=== PATIENT | male | born 1955 ===

== ENCOUNTER → 2020-05-03 09:00 | Outpatient (BNV) | payer MEDICARE, OTHER, SELFPAY | PROVIDERS: Visit Provider Internal Medicine | DX: C17.8 Malignant neoplasm of overlapping sites of small intestine (principal) | CPT/HCPCS: 99212; 99213; 99214; G2211 ==

== ENCOUNTER 2020-07-08 12:50 | Emergency (ER) | payer OTHER, SELFPAY ==
[2020-07-08] VITALS (9 sets, daily range): BP systolic 108–160; BP diastolic 66–97; PULSE 87–134; RESP 14–20; TEMP 36.6–36.7; O2SAT 99–100; BMI 24.8
--- NOTE | 2020-07-08 15:43 | ED.SOB ---
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 Per and patient has had mild upper respiratory symptoms and also has had exertional short of breath or he becomes winded after walking up the stairs. He also reports to me that he feels slightly lightheaded when he stands suddenly. He otherwise denies any pain or discomfort. No chest pain. No lower extremity swelling or rash. No abdominal pain. MD elicited complaint: shortness of breath Pertinent past history: other (History of CA) Onset (ago): day(s) Context: recent illness Timing: intermittent Severity: moderate Exacerbating factors: exertion Relieving factors: rest Treatment prior to arrival: none Related Data Home Medications Medication Instructions Recorded Confirmed cholecalciferol (vitamin D3) 1 tab PO DAILY 04/19/20 04/19/20 [Vitamin D3] dexamethasone 1 tab PO BID 04/19/20 04/19/20 ferrous sulfate 1 tab PO BID 04/19/20 04/19/20 losartan 1 tab PO DAILY 04/19/20 04/19/20 metformin 1 tab PO DAILY 04/19/20 04/19/20 ondansetron HCl 1 tab PO Q6-8H PRN 04/19/20 04/19/20 Previous Rx's Medication Instructions Recorded escitalopram oxalate [Lexapro] 5 mg PO DAILY #30 tab 06/14/20 loratadine [Claritin] 10 mg PO DAILY #30 tab 06/26/20 potassium chloride [K-Tab] 20 meq PO BID #60 tab 07/04/20 Allergies Allergy/AdvReac Type Severity Reaction Status Date / Time No Known Allergies Allergy Verified 07/08/20 13:14 [No Known Allergies*] Review of Systems Review of Systems: Constitutional: No Weight loss, No Fever, No Chills, No Night Sweats, No Fatigue, No Malaise ENT/Mouth: No Hearing loss, No Ear Pain, No Nasal Congestion, No Sinus Pain, No Hoarseness, No sore throat, No Rhinorrhea, No Swallowing Difficulty Eyes: No Eye Pain, No Swelling, No Redness, No Foreign Body, No Discharge, No Vision Changes Cardiovascular: No Chest Pain, No Orthopnea, No Edema, No Palpitations Respiratory: No Cough, No Sputum, No Wheezing, No Smoke Exposure, No Dyspnea Gastrointestinal: No Nausea, No Vomiting, No Diarrhea, No Constipation, No abdominal Pain, No Hematochezia, No Melena Genitourinary: No Dysuria, No Urinary Frequency, No Hematuria, No Urinary Incontinence, No Urgency, No Flank Pain Musculoskeletal: No joint pain, No Myalgias, No Joint Swelling Skin: No Skin Lesions, No rash Neuro: No Weakness, No Numbness, No Paresthesias, No Loss of Consciousness, No Dizziness, No Headache Psych: No Social Issues Heme/Lymph: No Bruising, No Bleeding,No Lymphadenopathy Endocrine: No Polyuria, No Polydipsia, No Temperature Intolerance Yes all other systems are reviewed and are negative [facility] Past Medical History Medical History (Updated 07/09/20 @ 00:00 by Tessie Rivera) Anemia Diabetes Diverticula of colon H/O malignant neoplasm of small intestine Hypertension Kidney mass Surgical History H/O sinus surgery History of esophagogastroduodenoscopy (EGD) Social History Social History (Updated 04/19/20 @ 11:09 by Marianne Carrillo RN) Alcohol intake: former Smoking Status: Former smoker Tobacco Type: Cigar Physical Exam Vital Signs: Vital Signs: Last Vital Signs Temp 98.0 F 07/08/20 20:00 Pulse 100 07/08/20 20:42 Resp 14 07/08/20 20:00 BP 160/93 H 07/08/20 20:42 Pulse Ox 99 07/08/20 20:00 Body Mass Index 24.8 Reviewed Const: General: cooperative; No acute distress or intoxicated appearing Nutritional Appearance: average body habitus Orientation/consciousness: patient oriented x3 HENMT: Head: Yes normal to inspection Ears: hearing grossly normal bilaterally Eyes: General: appearance normal, both eyes and all related structures Visual Bullock: normal visual bullock by confrontation Neck: Neck: Yes normal visual inspection, No positive Brudzinski's sign, No positive Kernig's sign and No tender Thyroid: Thyroid normal Chest: Chest palpation & inspection: normal inspection of the chest Resp: Effort & Inspection: normal respiratory effort Auscultation: clear to auscultation bilaterally Cardio: Jugular venous distension: no JVD Rate: regular rate Rhythm: regular rhythm Heart sounds: S1 normal heart sound present and S2 normal heart sound present GI: Inspection: Yes normal to inspection Percussion: Yes normal to percussion Auscultation: normal bowel sounds : General: Yes no CVA tenderness Back/Spine/Pelvis: Back: no CVA tenderness Skin: General skin exam: no rashes or lesions noted Neuro: General: patient oriented x3 Extrem: General: Yes normal to inspection Course Course Course Narrative: Slightly orthostatic positive went from 150s over 80s down to 130s over 60s from supine to standing. Otherwise lab work is reassuring. Given 1 L of fluid and recheck orthostatic vital signs were within normal limits and showed no BP drop with change of position. CTA of the chest show no central or segmental pulmonary embolism. No pulmonary nodule, mass or airspace disease, no significant lymphadenopathy. There is noted right renal upper pole soft tissue lesion with heterogeneous enhancement. Similar when compared to prior PET/CT and concerning for renal carcinoma. Findings were discussed with the patient and they know about this and have appointment coming up in October with kidney doctor at [facility]. Given his frailty I did discuss with him staying in the hospital for IV hydration he would like to defer this given that were in the middle of pandemic does not want to get COVID-19. Will like to go home and have outpatient follow-up. MDM - SOB/Dyspnea Medical Records Attestation: I reviewed the patient's medical records. Medical records narrative: Oncology new Lab Data Attestation: I reviewed the patient's lab results. Result diagrams: 07/08/20 16:38 07/08/20 16:38 Labs: Lab Results 07/08/20 07/08/20 07/08/20 Range/Units 16:38 16:38 16:39 WBC 6.2 (4.8-10.8) X10*3/uL RBC 3.53 L (4.60-5.80) X10*6/uL Hgb 10.2 L (14.0-18.0) g/dl Hct 29.6 L (42-52) % MCV 83.9 (80-98) fL MCH 28.9 (27.0-33.0) pg MCHC 34.5 (31.0-36.0) g/dl RDW 19.9 H (11.0-16.0) % Plt Count 196 D (160-400) X10*3/uL MPV 9.6 (9.4-12.4) fL Immature Gran % (Auto) 1.0 H (0.0-0.4) % Neut % (Auto) 67.9 (45-73) % Lymph % (Auto) 28.9 (20-40) % Obion % (Auto) 1.5 L (2-11) % Eos % (Auto) 0.7 (0-4) % Baso % (Auto) 0.0 (0-2) % Lymph # (Auto) 1.8 (1.2-4.9) X10*3/uL Obion # (Auto) 0.1 (0.1-1.2) X10*3/uL Eos # (Auto) 0.0 (0.0-0.4) X10*3/uL Baso # (Auto) 0.0 (0.0-0.2) X10*3/uL Abs Immat Gran (auto) 0.06 H (0.00-0.03) X10*3/uL Absolute Neuts (auto) 4.2 (2.0-8.3) X10*3/uL Absolute Nucleated RBC 0.000 (0.0-0.012) X10*3/uL Nucleated RBC % (auto) 0.0 (0.0-0.2) /100WBC PT 12.4 (10.8-13.0) SEC INR 1.0 (0.9-1.1) APTT 28.4 (24.1-38.0) SEC Sodium 138 (135-145) mmol/L Potassium 4.2 D (3.3-5.1) mmol/l Chloride 106 (96-108) mmol/L Carbon Dioxide 21 L (22-29) mmol/L Anion Gap 15 (12-20) BUN 18 H D (9-16) mg/dL Creatinine 0.76 (0.5-1.4) mg/dL Estim Creat Clear Calc 105.9 Estimated GFR > 60 Random Glucose 175 H (60-115) mg/dL Calcium 8.8 (8.4-10.2) mg/dL Magnesium 1.8 (1.6-2.6) mg/dL Total Bilirubin 0.5 (0.0-1.0) mg/dL AST 25 D (5-37) U/L ALT 50 H (0-40) U/L Alkaline Phosphatase 82 (39-117) U/L Troponin I High Sens (<3.5-35.0) ng/L Total Protein 6.0 L (6.5-8.0) g/dL Albumin 3.5 (3.5-5.0) g/dL Coronavirus (PCR) (Negative) Influenza Type A (PCR) (Negative) Influenza Type B (PCR) (Negative) RSV RNA Qual (PCR) (Negative) 07/08/20 07/08/20 Range/Units 16:39 16:39 WBC (4.8-10.8) X10*3/uL RBC (4.60-5.80) X10*6/uL Hgb (14.0-18.0) g/dl Hct (42-52) % MCV (80-98) fL MCH (27.0-33.0) pg MCHC (31.0-36.0) g/dl RDW (11.0-16.0) % Plt Count (160-400) X10*3/uL MPV (9.4-12.4) fL Immature Gran % (Auto) (0.0-0.4) % Neut % (Auto) (45-73) % Lymph % (Auto) (20-40) % Obion % (Auto) (2-11) % Eos % (Auto) (0-4) % Baso % (Auto) (0-2) % Lymph # (Auto) (1.2-4.9) X10*3/uL Obion # (Auto) (0.1-1.2) X10*3/uL Eos # (Auto) (0.0-0.4) X10*3/uL Baso # (Auto) (0.0-0.2) X10*3/uL Abs Immat Gran (auto) (0.00-0.03) X10*3/uL Absolute Neuts (auto) (2.0-8.3) X10*3/uL Absolute Nucleated RBC (0.0-0.012) X10*3/uL Nucleated RBC % (auto) (0.0-0.2) /100WBC PT (10.8-13.0) SEC INR (0.9-1.1) APTT (24.1-38.0) SEC Sodium (135-145) mmol/L Potassium (3.3-5.1) mmol/l Chloride (96-108) mmol/L Carbon Dioxide (22-29) mmol/L Anion Gap (12-20) BUN (9-16) mg/dL Creatinine (0.5-1.4) mg/dL Estim Creat Clear Calc Estimated GFR Random Glucose (60-115) mg/dL Calcium (8.4-10.2) mg/dL Magnesium (1.6-2.6) mg/dL Total Bilirubin (0.0-1.0) mg/dL AST (5-37) U/L ALT (0-40) U/L Alkaline Phosphatase (39-117) U/L Troponin I High Sens 6.8 (<3.5-35.0) ng/L Total Protein (6.5-8.0) g/dL Albumin (3.5-5.0) g/dL Coronavirus (PCR) NEGATIVE (Negative) Influenza Type A (PCR) NEGATIVE (Negative) Influenza Type B (PCR) NEGATIVE (Negative) RSV RNA Qual (PCR) NEGATIVE (Negative) Imaging Data CT scan - head: Radiologist's impression: [address] [address] [address] Scan Report Signed Patient: Elijah Bearden#: [id number] : 7Acct:[id number] Age/Sex: 65 / MADM Date: 07/08/20 Loc: HO.ED Attending Dr: Ordering Physician: Gerard Beckman NP Date of Service: 07/08/20 Procedure(s): CT head/brain wo con Accession Number(s): [id number] cc: Gerard Beckman PHARMACEUTICAL COMPOUNDING SUPERVISOR~ EXAMINATION: CT HEAD WITHOUT CONTRAST CLINICAL INFORMATION: SOB. Dizziness. History of cancer. COMPARISON: None TECHNIQUE: Contiguous axial imaging was performed from the skull base to vertex without intravenous administration of contrast. This CT examination was performed using dose optimization techniques as appropriate, variously including the following: *Automated exposure control *Adjustment of mA and/or kV according to patient size (this includes techniques or standardized protocols for targeted exams where dose is matched to indication/reason for exam; i.e. extremities or head) *Use of iterative reconstruction technique DLP: 1099 mGy-cm FINDINGS: There is no evidence of acute intracranial hemorrhage or territorial infarction. No abnormal mass effect or midline shift is seen. Valentino to white matter differentiation is well preserved. No extra-axial fluid collections are identified. The ventricles are normal in size. There is no abnormal attenuation within the brain parenchyma. The osseous structures and soft tissues are normal. There are small polyps or retention cyst in bilateral maxillary sinus. Rest of the paranasal sinuses and mastoid air cells are well-aerated. There is bilateral functional endoscopic sinus surgery. CT/CT head/brain wo con IMPRESSION: No acute intracranial process seen. Bilateral maxillary sinus mucosal polyps or retention cysts. Dictated By:TRINI DOYLE MD Signed By:<Electronically signed by TRINI DOYLE MD in OV>07/08/201925 DD/ 1551 TD/TT: Account Contact Associate: [facility] [place] PE: Radiologist's impression: [address] [address] [address] Scan Report Signed Patient: Elijah Bearden#: [id number] : 1955cct:[id number] Age/Sex: 65 / MADM Date: 07/08/20 Loc: HO.ED Attending Dr: Ordering Physician: Gerard Beckman NP Date of Service: 07/08/20 Procedure(s): CT angio chest PE protocol Accession Number(s): [id number] cc: Gerard Beckman PHARMACEUTICAL COMPOUNDING SUPERVISOR~ EXAMINATION: CT ANGIOGRAM CHEST WITH AND WITHOUT CONTRAST (CT PULMONARY ANGIOGRAM FOR PE) CLINICAL INFORMATION: Shortness of breath. Evaluate for a pulmonary embolism. COMPARISON: PET/CT dated 03/21/2020. Chest radiograph dated 12/03/2018. TECHNIQUE: Prior to contrast administration, noncontrast localization images were obtained. Subsequently, multidetector volumetric imaging was performed from the thoracic inlet to below the diaphragms following the administration of 65 mL Omnipaque 350 intravenous contrast. No contrast reaction reported. Sagittal, coronal, and MIP oblique sagittal reformatted images were obtained on the CT workstation, uploaded to PACS, and reviewed. This CT examination was performed using dose optimization techniques as appropriate, variously including the following: *Automated exposure control *Adjustment of mA and/or kV according to patient size (this includes techniques or standardized protocols for targeted exams where dose is matched to indication/reason for exam; i.e. extremities or head) *Use of iterative reconstruction technique Total exam dose-length product 340 mGy-cm FINDINGS: QUALITY OF STUDY/CONTRAST BOLUS: Satisfactory. PULMONARY ARTERIES: No central or segmental pulmonary emboli. THORACIC AORTA: No aneurysm or dissection. LUNGS: No focal consolidation, nodules or masses. PLEURA: No pleural effusion or pneumothorax. MEDIASTINUM: Normal heart size. No pericardial effusion. No hilar or mediastinal lymphadenopathy. No evidence of septal bowing or right heart strain. CHEST WALL/AXILLAE: Right chest wall port with its catheter tip in the SVC. No axillary or internal mammary lymphadenopathy. OSSEOUS STRUCTURES: No acute or suspicious osseous abnormality. UPPER ABDOMEN: Redemonstration of a right upper pole renal mass measuring 3.4 x 3.6 cm which demonstrates heterogeneous enhancement. This is similar when compared to the recent PET/CT and concerning for renal cell carcinoma. Simple-appearing posterior left renal cyst, unchanged. No reflux of contrast into the hepatic veins to suggest elevated right heart pressures. CT/CT angio chest PE protocol IMPRESSION: 1. No central or segmental pulmonary embolism. 2. No pulmonary nodule, mass, or airspace consolidation. 3. No significant lymphadenopathy. 4. Right renal upper pole soft tissue lesion with heterogeneous enhancement, similar when compared to the prior PET/CT and concerning for renal cell carcinoma. VTE: Negative Dictated By:SHREYA DICKENS MD Signed By:<Electronically signed by SHREYA DICKENS MD in OV>07/08/20 1931 DD/ 1551 TD/TT: Account Contact Associate: Discharge Plan Discharge Clinical Impression: Orthostatic lightheadedness Patient Disposition: Home, Self-Care Instructions: Dehydration (ED) Additional Instructions: Your lab work as well as her CT scan findings were reviewed in detail'; the CT scan of the head did not show any acute findings, CT scan of the chest did not show any evidence of pulmonary embolism. Push fluid intake Clinically and diagnostically you appeared mildly dehydrated that could be causing your symptoms Push fluids by mouth Supportive care as discussed Follow-up with her oncology team as plan Return if any concerns or worsening symptoms Thank you Prescriptions: No Action ondansetron HCl 4 mg tablet 1 tab PO Q6-8H PRN (Reason: nausea) RF: 0 ferrous sulfate 325 mg (65 mg iron) tablet 1 tab PO BID RF: 0 metformin 1,000 mg tablet 1 tab PO DAILY RF: 0 dexamethasone 4 mg tablet 1 tab PO BID RF: 0 losartan 100 mg tablet 1 tab PO DAILY RF: 0 cholecalciferol (vitamin D3) [Vitamin D3] 125 mcg (5,000 unit) tablet 1 tab PO DAILY RF: 0 escitalopram oxalate [Lexapro] 5 mg Tablet 5 mg PO DAILY Qty: 30 RF: 3 loratadine [Claritin] 10 mg Tablet 10 mg PO DAILY Qty: 30 RF: 0 potassium chloride [K-Tab] 10 mEq Tablet Extended Release 20 meq PO BID Qty: 60 RF: 3 Referrals: Tegan Junior MD [Primary Care Provider] - 5 days Interventions: ED Discharge Assessment Last Done: 07/08/20 21:17 Discharge Date/Time: 07/08/20 21:21
--- NOTE | 2020-07-08 15:44 | ECG_ITS ---
Test Reason : SOB Blood Pressure : / mmHG Vent. Rate : 091 BPM Atrial Rate : 091 BPM P-R Int : 118 ms QRS Dur : 088 ms QT Int : 320 ms P-R-T Axes : 074 036 083 degrees QTc Int : 393 ms Normal sinus rhythm Nonspecific ST and T wave abnormality Abnormal ECG When compared with ECG of 18-DEC-2018 08:21, T wave inversion now evident in Anterior leads Referred By: Gerard Beckman Electronically Signed By:JUANIS RIOS
--- NOTE | 2020-07-08 15:51 | CT_ITS ---
EXAMINATION: CT ANGIOGRAM CHEST WITH AND WITHOUT CONTRAST (CT PULMONARY ANGIOGRAM FOR PE) CLINICAL INFORMATION: Shortness of breath. Evaluate for a pulmonary embolism. COMPARISON: PET/CT dated 03/21/2020. Chest radiograph dated 12/03/2018. TECHNIQUE: Prior to contrast administration, noncontrast localization images were obtained. Subsequently, multidetector volumetric imaging was performed from the thoracic inlet to below the diaphragms following the administration of 65 mL Omnipaque 350 intravenous contrast. No contrast reaction reported. Sagittal, coronal, and MIP oblique sagittal reformatted images were obtained on the CT workstation, uploaded to PACS, and reviewed. This CT examination was performed using dose optimization techniques as appropriate, variously including the following: *Automated exposure control *Adjustment of mA and/or kV according to patient size (this includes techniques or standardized protocols for targeted exams where dose is matched to indication/reason for exam; i.e. extremities or head) *Use of iterative reconstruction technique Total exam dose-length product 340 mGy-cm FINDINGS: QUALITY OF STUDY/CONTRAST BOLUS: Satisfactory. PULMONARY ARTERIES: No central or segmental pulmonary emboli. THORACIC AORTA: No aneurysm or dissection. LUNGS: No focal consolidation, nodules or masses. PLEURA: No pleural effusion or pneumothorax. MEDIASTINUM: Normal heart size. No pericardial effusion. No hilar or mediastinal lymphadenopathy. No evidence of septal bowing or right heart strain. CHEST WALL/AXILLAE: Right chest wall port with its catheter tip in the SVC. No axillary or internal mammary lymphadenopathy. OSSEOUS STRUCTURES: No acute or suspicious osseous abnormality. UPPER ABDOMEN: Redemonstration of a right upper pole renal mass measuring 3.4 x 3.6 cm which demonstrates heterogeneous enhancement. This is similar when compared to the recent PET/CT and concerning for renal cell carcinoma. Simple-appearing posterior left renal cyst, unchanged. No reflux of contrast into the hepatic veins to suggest elevated right heart pressures. CT/CT angio chest PE protocol IMPRESSION: 1. No central or segmental pulmonary embolism. 2. No pulmonary nodule, mass, or airspace consolidation. 3. No significant lymphadenopathy. 4. Right renal upper pole soft tissue lesion with heterogeneous enhancement, similar when compared to the prior PET/CT and concerning for renal cell carcinoma. VTE: Negative
--- NOTE | 2020-07-08 15:51 | CT_ITS ---
EXAMINATION: CT HEAD WITHOUT CONTRAST CLINICAL INFORMATION: SOB. Dizziness. History of cancer. COMPARISON: None TECHNIQUE: Contiguous axial imaging was performed from the skull base to vertex without intravenous administration of contrast. This CT examination was performed using dose optimization techniques as appropriate, variously including the following: *Automated exposure control *Adjustment of mA and/or kV according to patient size (this includes techniques or standardized protocols for targeted exams where dose is matched to indication/reason for exam; i.e. extremities or head) *Use of iterative reconstruction technique DLP: 1099 mGy-cm FINDINGS: There is no evidence of acute intracranial hemorrhage or territorial infarction. No abnormal mass effect or midline shift is seen. Valentino to white matter differentiation is well preserved. No extra-axial fluid collections are identified. The ventricles are normal in size. There is no abnormal attenuation within the brain parenchyma. The osseous structures and soft tissues are normal. There are small polyps or retention cyst in bilateral maxillary sinus. Rest of the paranasal sinuses and mastoid air cells are well-aerated. There is bilateral functional endoscopic sinus surgery. CT/CT head/brain wo con IMPRESSION: No acute intracranial process seen. Bilateral maxillary sinus mucosal polyps or retention cysts.
--- NOTE | 2020-07-08 16:42 | PC.NURSE ---
Port to right chest accessed without difficulty and per poicy. Blood and covid swab obtained and sent to lab. Awaiting labs and CT at this time. Pt aware of plan/status.
[2020-07-08 16:52] LABS: MANUAL DIFF FLAG NO
[2020-07-08 16:58] LABS: Eosinophils Percent Auto 0.7 % (0-4); Hematocrit 29.6 % (42-52); Hemoglobin 10.2 g/dl (14.0-18.0); Imm Gran Abs Auto 0.06 X10*3/uL (0.00-0.03); Lymphocytes Absolute Auto 1.8 X10*3/uL (1.2-4.9); Lymphocytes Percent Auto 28.9 % (20-40); Mean Corpuscular HGB Conc 34.5 g/dl (31.0-36.0); Mean Corpuscular Hemoglobin 28.9 pg (27.0-33.0); Mean Corpuscular Volume 83.9 fL (80-98); Mean Platelet Volume 9.6 fL (9.4-12.4); Monocytes Absolute Auto 0.1 X10*3/uL (0.1-1.2); Monocytes Percent Auto 1.5 % (2-11); Neutrophils Absolute Auto 4.2 X10*3/uL (2.0-8.3); Neutrophils Percent Auto 67.9 % (45-73); Platelet Count 196 X10*3/uL (160-400); Red Blood Count 3.53 X10*6/uL (4.60-5.80); Red Cell Distribution Width 19.9 % (11.0-16.0); White Blood Count 6.2 X10*3/uL (4.8-10.8)
[2020-07-08 17:01] LABS: Prothrombin Time 12.4 SEC (10.8-13.0)
[2020-07-08 17:03] LABS: Partial Thromboplastin Time 28.4 SEC (24.1-38.0)
[2020-07-08 17:21] LABS: Alanine Aminotransferase 50 U/L (0-40); Albumin Level 3.5 g/dL (3.5-5.0); Alkaline Phosphatase 82 U/L (39-117); Anion Gap 15 (12-20); Aspartate Amino Transferase 25 U/L (5-37); Bilirubin Total 0.5 mg/dL (0.0-1.0); Blood Urea Nitrogen 18 mg/dL (9-16); Calcium 8.8 mg/dL (8.4-10.2); Carbon Dioxide 21 mmol/L (22-29); Chloride 106 mmol/L (96-108); Creatinine Clr Calc Pharmacy 105.9; Estimated Glomerular Filt Rate > 60; Glucose Random 175 mg/dL (60-115); Potassium 4.2 mmol/l (3.3-5.1); Sodium 138 mmol/L (135-145)
[2020-07-08 17:29] LABS: Troponin-I High Sensitivity 6.8 ng/L (<3.5-35.0)
[2020-07-08 17:37] LABS: Magnesium 1.8 mg/dL (1.6-2.6)
[2020-07-08 17:48] LABS: Influenza A PCR NEGATIVE (Negative); Influenza B PCR NEGATIVE (Negative); Resp Syncy Virus RNA Qual PCR NEGATIVE (Negative); SARS COV2 PCR INHOUSE NEGATIVE (Negative)
[2020-07-08] MEDS: iohexoL 350 MG/ML 100 ML INFUS..BTL IV (19:00)
[2020-07-08] MEDS: 0.9 % Sodium Chloride 1,000 ML 999 ML IV (19:50)
--- NOTE | 2020-07-08 20:13 | PC.NURSE ---
Lung sounds clear. Orthos +, patient recieiving 1L ns. gene updated in waiting room per pt request.
--- NOTE | 2020-07-08 21:00 | PC.NURSE ---
Patient aware of plan for d/c. fluids completed. cleared for d/c by provider.
== END 2020-07-08 21:21 | disposition home or self-care (01) ==
PROVIDERS: Nurse Practitioner Primary Care; Emergency Provider Emergency Medicine; PCP Internal Medicine
DX: R42 Dizziness and giddiness (principal); E86.0 Dehydration; Z20.828 Contact with and (suspected) exposure to other viral communicable diseases; E11.9 Type 2 diabetes mellitus without complications; I10 Essential (primary) hypertension; N28.89 Other specified disorders of kidney and ureter; D63.8 Anemia in other chronic diseases classified elsewhere; Z85.068 Personal history of other malignant neoplasm of small intestine
CPT/HCPCS: 0241U; 36415; 70450; 71275; 80053; 83735; 84484; 85025; 85610; 85730; 93005; 96360; 99284; J1642; Q9967

== ENCOUNTER → 2020-07-19 13:28 | Outpatient (BNVA) | payer OTHER, SELFPAY | PROVIDERS: PCP Internal Medicine; Visit Provider Internal Medicine | DX: R06.02 Shortness of breath (principal); E11.8 Type 2 diabetes mellitus with unspecified complications; I10 Essential (primary) hypertension; C17.9 Malignant neoplasm of small intestine, unspecified | CPT/HCPCS: 99202 ==

== ENCOUNTER → 2020-07-26 07:44 | Outpatient (REF) | payer OTHER, SELFPAY ==
--- NOTE | 2020-07-26 07:43 | CA_ITS ---
Transthoracic Echocardiogram Patient (Last, First, Middle): Elijah Bearden, Gender: Male Date of : 1955 Age: 65 Procedure Date: 07/26/2020 Procedure Type: Transthoracic Echocardiogram Location: OP Height: 177.8 cm Weight: 82.1 kg BSA: 2.00 m2 Heart Rate: bpm BP: 120 / 62 mmHg Museum Educator: STEVE Referring MD: Eulalio Desai MD Symptoms: R06.02 - Shortness of breath Study Quality: Fair ECG Rhythm: Sinus Conclusions: - The left ventricular systolic function is normal. The visually estimated ejection fraction is between 65-70%. - No obvious valvular pathology seen on this study. Findings Left Ventricle Normal left ventricular cavity size. There is mildly increased left ventricular wall thickness. The left ventricular systolic function is normal. The visually estimated ejection fraction is between 65-70%. There is no evidence of regional wall motion abnormalities. Diastolic function is normal for age. Right Ventricle Normal right ventricular cavity size and systolic function. Atria The left atrium is normal in size. The right atrium is normal in size. Aortic Valve There is a normal trileaflet aortic valve. There is mild calcification of the aortic valve. There is no aortic valve stenosis. There is no aortic valve regurgitation. Mitral Valve The mitral valve appears normal. There is no mitral valve regurgitation. There is no mitral valve stenosis. Pulmonic Valve The pulmonic valve was not well visualized. Tricuspid Valve Normal tricuspid valve structure. There is trace tricuspid valve regurgitation. The pulmonary artery systolic pressure is normal. Great Vessels The aortic annulus, sinuses of valsalva, and asc aorta are normal in size. Venous The inferior vena cava is normal in size and collapses greater than 50% with inspiration. Pericardium/Pleural Small pericardial effusion over the apical part of right ventricle. Prior Study Comparison No significant change compared to prior study dated: 10/17/2011. Recommendations, Care & Conclusions No obvious valvular pathology seen on this study. Measurements 2D Linear Measurements IVSd: 1.25 0.6-0.9/0.6-1.0 cm LVIDd: 3.72 3.9-5.3/4.2-5.9 cm LVIDd Index: 1.86 2.4-3.2/2.2-3.1 cm/m2 LVIDs: 1.86 2.0-3.6 cm LVPWd: 1.13 0.7-1.1 cm Ao Root: 2.50 2.1-3.5 cm LA Diam: 3.40 2.7-3.8/3.0-4.0 cm LAIDs Index: 1.70 1.5-2.3 cm/m2 LV Mass: 182.52 67-162/88-224 g LV Mass Index: 91.26 43-95/49-115 g/m2 LVOT Diam: 2.00 3.0+(-)1.3 cm Mitral Valve MV Pk E: 0.57 MV PK A: 0.68 MV Decel Time: 137.00 E/A: 0.80 E'Lateral: 10.50 E'Medial: 7.74 E/E' Med: 7.40 E/E' Lat: 5.40 PHT: 40.00 MVA PHT: 5.50 Decel Wise: 4.17 Aortic Valve AoV Pk David: 1.64 AoV Pk Grad: 11.00 LVOT LVOT Pk David: 1.31 LVOT Mn David: 0.93 LVOT VTI: 0.24 LVOT Pk Grad: 7.00 LVOT Mn Grad: 4.00 LVOT Diam: 2.00 LVOT Area: 3.14 Diastolic Function MV Pk E: 0.57 MV Pk A: 0.68 E/A: 0.80 E'Medial: 7.74 E/E' Med: 7.40 E' Laterial: 10.50 E/E' Lat: 5.40 Tricuspid Valve TR Pk David: 2.18 TR Pk Grad: 19.00 RA Press: 3.00 RVSP: 22.00 Great Vessels Aorta Ao Root-2D: 2.50 2.0-3.7 cm Ao Asc: 3.20 2.1-3.4 cm Updated in Other Vendor System with Status of Final Eulalio Desai MD electronically signed on 07/28/2020 3:44:04 PM with status of Final
== END ==
LOC: HO.CARD 07:44
PROVIDERS: Visit Provider Internal Medicine
DX: R06.02 Shortness of breath (principal)
CPT/HCPCS: 93306

== ENCOUNTER 2020-07-31 09:21 | Outpatient (REF) | payer OTHER, SELFPAY ==
--- NOTE | 2020-07-31 09:24 | CT_ITS ---
EXAMINATION: CT ABDOMEN AND PELVIS WITHOUT AND WITH CONTRAST CLINICAL INFORMATION: Renal mass. Lymph nodes on prior CT. COMPARISON: CT abdomen and pelvis with IV contrast 02/21/2020. TECHNIQUE: Multidetector volumetric imaging was performed of the abdomen and pelvis before and after the IV administration of 85 mL of Omnipaque 300 intravenous contrast. Sagittal and coronal reformatted images were obtained on the technologist's workstation. This CT examination was performed using dose optimization techniques as appropriate, variously including the following: *Automated exposure control *Adjustment of mA and/or kV according to patient size (this includes techniques or standardized protocols for targeted exams where dose is matched to indication/reason for exam; i.e. extremities or head) *Use of iterative reconstruction technique DLP: 718 mGy-cm. FINDINGS: LUNG BASES: The visualized lung bases are unremarkable. LIVER, GALLBLADDER, AND BILIARY TREE: The liver is normal in size, shape, and mild diffuse hypoattenuation. No focal hepatic lesion or biliary ductal dilatation is present. Gallbladder is contracted with no radiopaque calculi, wall thickening or pericholecystic fluid collection. PANCREAS: Unremarkable. SPLEEN: Unremarkable. ADRENAL GLANDS: The left adrenal gland is thickened similar previous study. The right adrenal gland appears normal. KIDNEYS AND URETERS: The kidneys are normal in size, shape, and attenuation. No hydronephrosis, hydroureter, or calculi seen. No perinephric stranding. There 2.1 cm exophytic cyst upper pole and partially exophytic 2.1 cm cyst lower pole left kidney with mild perinephric stranding. The solid lesion in the upper pole right kidney is barely visualized due to difference in contrast and technique. It measures roughly 3.6 x 3.8 cm. Previously it measured approximately same size. There are a few nonenhancing cysts measuring 1.3 in the midpole and 4 mm in the lower pole. BLADDER: The bladder is nondistended with diffuse bladder wall thickening. No radiopaque calculi seen. GASTROINTESTINAL TRACT: There is scattered stool, diverticuli and gas seen throughout the colon without distention. The small bowel loops are normal caliber. There is an annular suture along the small bowel loops in the upper mid right pelvis with a widely patent lumen. Appendix is normal caliber. No free air or free fluid seen. The stomach is distended with recently ingested food and appears unremarkable. ABDOMINAL WALL: No significant hernia is appreciated. LYMPH NODES: A few scattered lymph nodes are seen along the bilateral external iliac chain, same size as before. VASCULAR: Unremarkable. PELVIC VISCERA: The prostate gland is mildly enlarged. The periprostatic fat planes are preserved. There is tiny free fluid in the left pelvis. OSSEOUS STRUCTURES: There is ventral bridging osteophyte at the L2-L3 disc level. No lytic or sclerotic process seen. CT/CT abdomen pelvis wo/w con IMPRESSION: Stable solid lesion upper pole right kidney and bilateral renal cysts. No radiopaque calculi or hydronephrosis. Annular suture small bowel loop in the right upper pelvis in the area of previously noted mural thickening and narrowing. The anastomotic site is patent. Colonic diverticulosis without diverticulitis. Left adrenal gland thickness is stable. There is tiny free fluid in the left pelvis.
[2020-07-31] MEDS: iohexoL 350 MG/ML 100 ML INFUS..BTL 85 ML IV (10:25)
== END 2020-07-31 09:22 | disposition home or self-care (01) ==
LOC: HO.CT 09:21
PROVIDERS: Visit Provider Internal Medicine Medical Oncology
DX: N28.89 Other specified disorders of kidney and ureter (principal)
CPT/HCPCS: 74178; Q9967

== ENCOUNTER → 2020-08-07 10:55 | Outpatient (REF) | payer OTHER, SELFPAY ==
--- NOTE | 2020-08-07 10:59 | CA_ITS ---
Acquisition Time: 2020-08-07 11:06:33 Total Exercise Time: 00:03:06 Test Indications: Dyspnea Medications: DEXAMETHASONE LEXAPRO HCTZ LOSARTAN LORATADINE METFORMIN KCL ONDANSARTAN Protocol: MITCH Max HR: 155 BPM 98% of Pred: 157 BPM Max BP: 162/100 mmHG Max Work Load: 4.6 METS Exercise stress test with exercise 3 min 6 sec of Mitch protocol stage 1 with difficulty keeping up with treadmill, mild to mod sob, no chest discomfort, without arrythmia, with normotensive response to exercise, without EKG changes meeting criteria for ischemia. Accuracy to assess for ischemia decreased due to limited exercise time. Goal exercise was 5 min. Echo images obtained by Tech at rest and immediately post peak exercise. Definity contrast used. Test reviewed with Dr Murillo. Referred By: Eulalio Desai Overread By: LUIS ENRIQUE SANCHEZ
== END ==
LOC: HO.CARD 10:55
PROVIDERS: Visit Provider Internal Medicine
DX: R06.02 Shortness of breath (principal)
CPT/HCPCS: 93350; Q9957

== ENCOUNTER 2020-08-14 09:47 | Day surgery (SDC) | payer OTHER, SELFPAY ==
--- NOTE | ~2020-08-14 | IR_ITS ---
EXAMINATION: REMOVAL OF RIGHT-SIDED PORT CLINICAL INFORMATION: No IV chemotherapy needed. Right kidney neoplasm. COMPARISON: None. TECHNIQUE: Following explaining the procedure, benefits and risk, a written consent was obtained for removal of right Port-A-Cath. The area around the right upper anterior chest wall was cleaned in usual sterile manner. 1% lidocaine was injected at the junction of the catheter and the port chamber. A small skin incision was performed with blunt dissection performed around the port loosening the connective tissue. The 2 sutures were identified and removed. The Port-A-Cath was pulled as one piece. Hemostasis was achieved at the right chest wall incision site. The anterior chest wall skin lesion was sutured with 3-0 absorbable sutures. Sterile dressing applied postprocedure. Patient tolerated procedure extremely well. Conscious sedation was administered by a nurse and supervised by radiologist during the exam. IR/IR cvc remove tunnel w prt/trust evaluation supervisor FINDINGS/IMPRESSION:: Successful removal of right port catheter under local anesthesia and IV sedation. There is no evidence of bleeding seen. A single chest x-ray image was obtained revealing removal of port catheter.
[2020-08-14 10:10] VITALS: BMI 26.1
[2020-08-14 10:19] LABS: Glucose, Whole Blood 168 mg/dL (60-115)
[2020-08-14 10:23] LABS: Partial Thromboplastin Time 31.1 SEC (24.1-38.0)
[2020-08-14 12:20] VITALS: BP 152/88; PULSE 73; TEMP 36.7; O2SAT 99
[2020-08-14] MEDS: Lidocaine HCl 1 % MPF 5 ML VIAL 10 ML SUBCUT (12:29)
[2020-08-14 12:35] VITALS: BP 158/100; PULSE 80; O2SAT 99
[2020-08-14 12:50] VITALS: BP 155/82; PULSE 68; RESP 16; O2SAT 99
[2020-08-14 13:10] VITALS: BP 144/88; PULSE 66; RESP 16; O2SAT 99
[2020-08-14 13:54] VITALS: BP 156/99; PULSE 88; RESP 16; TEMP 36.6; O2SAT 99
== END 2020-08-14 14:02 | disposition home or self-care (01) ==
PROVIDERS: Visit Provider Radiology Diagnostic Radiology
PROC: (CPT 36590; principal; 2020-08-14 10:30)
DX: Z45.2 Encounter for adjustment and management of vascular access device (principal); C17.9 Malignant neoplasm of small intestine, unspecified; E11.9 Type 2 diabetes mellitus without complications; I10 Essential (primary) hypertension
CPT/HCPCS: 36415; 36590; 82947; 85610; 85730; 99152; J2250; J3010

== ENCOUNTER 2020-08-24 16:13 | Outpatient (REF) | payer OTHER, SELFPAY | END 2020-08-24 16:14 | disposition home or self-care (01) | LOC: HO.RADIR 16:13 | PROVIDERS: Visit Provider Internal Medicine Medical Oncology | DX: Z13.89 Encounter for screening for other disorder (principal) ==

== ENCOUNTER → 2020-08-31 08:59 | Outpatient (BNVA) | payer OTHER, SELFPAY | PROVIDERS: Visit Provider Internal Medicine | DX: Z09 Encounter for follow-up examination after completed treatment for conditions other than malignant neoplasm (principal); R06.02 Shortness of breath; E11.8 Type 2 diabetes mellitus with unspecified complications; I10 Essential (primary) hypertension; C17.9 Malignant neoplasm of small intestine, unspecified | CPT/HCPCS: 99212 ==

== ENCOUNTER 2020-09-09 08:02 | Emergency (ER) | payer OTHER, SELFPAY ==
--- NOTE | ~2020-09-09 | CT_ITS ---
EXAMINATION: CT ABDOMEN AND PELVIS WITH CONTRAST CLINICAL INFORMATION: Periumbilical pain. History of small bowel resection adenocarcinoma. COMPARISON: Periumbilical pain. History of small bowel resection. TECHNIQUE: Multidetector volumetric images were obtained from the superior aspect of the liver through the pubic symphysis following administration 85 mL of Omnipaque 350 intravenous contrast. Sagittal and coronal reformatted images were obtained on the technologist's workstation. Oral contrast: No This CT examination was performed using dose optimization techniques as appropriate, variously including the following: *Automated exposure control *Adjustment of mA and/or kV according to patient size (this includes techniques or standardized protocols for targeted exams where dose is matched to indication/reason for exam; i.e. extremities or head) *Use of iterative reconstruction technique DLP: 729 mGy-cm FINDINGS: LUNG BASES: Lung bases are clear. The heart size is normal. LIVER, GALLBLADDER, AND BILIARY TREE: The liver is normal in size, shape, and attenuation. No focal hepatic lesion or biliary ductal dilatation is present. The gallbladder is unremarkable with no evidence of radiopaque gallstones, gallbladder wall thickening, or obvious pericholecystic inflammatory changes. PANCREAS: Unremarkable. SPLEEN: Unremarkable. ADRENAL GLANDS: There is mild bilateral adrenal hypertrophy but no focal lesion seen. KIDNEYS AND URETERS: The kidneys are normal in size, shape, and attenuation. There is a solid mass with central hypodensity likely scar in the upper pole right kidney measuring 3.5 x 3.6 x 3.4 cm. There are additional nonenhancing bilateral renal cysts. An exophytic upper pole cyst measures 2.2 cm. No radiopaque renal calculi or hydroureter nephrosis seen. BLADDER: Unremarkable. GASTROINTESTINAL TRACT: There is diffuse mural thickening involving the left transverse colon, splenic flexure and the descending colon with mild pericolic fat stranding involving the mid to distal descending colon with prominent diverticuli in this region. No microperforation or fluid collection seen. There is scattered stool in the sigmoid colon. Rest of the colon and the small bowel loops are normal caliber. Appendix is normal caliber. No free fluid seen. The stomach is nondistended and appears unremarkable. ABDOMINAL WALL: No significant hernia is appreciated. LYMPH NODES: Normal. VASCULAR: Unremarkable. PELVIC VISCERA: The prostate gland is normal size. No free fluid. No abnormal lymphadenopathy. OSSEOUS STRUCTURES: Degenerative disc changes with ventral spondylosis L2-L3 disc level is noted. No lytic or sclerotic process seen. CT/CT abdomen pelvis w con IMPRESSION: Scattered colonic diverticula, most prominent in descending colon with descending colon diverticulitis. There is no free air or fluid collection to suspect any perforation. Solid renal mass upper pole right kidney most suggestive of renal cell carcinoma. Recommend urology consult Bilateral renal cysts. No radiopaque calculi or hydronephrosis.
--- NOTE | ~2020-09-09 | XR_ITS ---
EXAMINATION: XR CHEST CLINICAL INFORMATION: Low-grade fever. On chemotherapy COMPARISON: Portable 08/14/2020 TECHNIQUE: Frontal view of the chest was obtained. FINDINGS: The lungs are well-expanded and clear of acute process. Heart size and pulmonary vascularity is normal. No gross bony abnormality seen. XR/XR chest 1V IMPRESSION: Unremarkable chest exam.
[2020-09-09 08:13] VITALS: BP 140/84; PULSE 110; RESP 18; TEMP 37; O2SAT 100; BMI 17.2
[2020-09-09 08:22] VITALS: BP 139/84; PULSE 97; RESP 16; O2SAT 99
--- NOTE | 2020-09-09 08:38 | PC.NURSE ---
pt alert and oriented x3. eye contact and verbal response appropriate for setting. pt presents to the ED with abdominal pain for 2 weeks and ulcers in his mouth which he states started 2 days ago. pt states he has had the abdominal pain for 2 weeks, the pain level has remained stable but the pain is intermittent, currently he states his pain is 10/10. lung sounds are clear bilaterally in all bullock, heart sounds and rate are normal, bowel sounds active x4. visual inspection of abdomen did not reveal any discoloration or bruising or distension. pt has a 2 inch vertical surgical scar above his umbilicus which he states was from a previous operation to remove cancer. when palpating abdomen, pt stated he did not feel any pain in any quadrant. visual inspection of the mouth reveals stomatitis with reddened raw discoloration under the tongue as well as ulcers in the back of the mouth next to molars. pt also states that he developed burning with urination 4 days ago which he states has never happened before. pt currently laying in bed comfortably in semi fowlers, no distress noted. call lucia in reach. md at bedside during assessment.
--- NOTE | 2020-09-09 08:41 | ED_ITS ---
HPI - General Adult General Chief complaint: General Medical Stated complaint: MOUTH SORES AND ABD PAIN Time Seen by Provider: 09/09/20 08:13 Source: patient Mode of arrival: ambulatory Limitations: no limitations History of Present Illness HPI narrative: Patient comes to the emergency room complaining periumbilical pain for about two weeks. Patient states it is always in the same spot, nonradiating, intermittent. The pain is unrelated to meals. Patient reports multiple episodes of diarrhea for about a week, no vomiting. Patient states that his took his temperature this morning, it was 100.0. Patient also complaining of lesions in his mouth in the cheeks and around the lateral aspects of the tongue, the lesions are uncomfortable. Patient states this is the 2nd time that he has had this kind of source. 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 Patient had chemotherapy 1 week ago, and is scheduled for chemo again in 1 more week. MD complaint: Abdominal pain, or lesions Related Data Home Medications Medication Instructions Recorded Confirmed cholecalciferol (vitamin D3) 1 tab PO DAILY 04/19/20 08/31/20 [Vitamin D3] ferrous sulfate 1 tab PO BID 04/19/20 08/31/20 metformin 1 tab PO DAILY 04/19/20 08/31/20 ondansetron HCl 1 tab PO Q6-8H PRN 04/19/20 08/31/20 dexamethasone 4 mg tablet 4 mg PO BID PRN 07/19/20 08/31/20 hydrochlorothiazide 12.5 mg capsule 12.5 mg PO DAILY 07/19/20 08/31/20 losartan 100 mg tablet 100 mg PO DAILY tab 07/19/20 08/31/20 Previous Rx's Medication Instructions Recorded capecitabine 2,000 mg PO BID #112 tab 08/11/20 famotidine [Pepcid AC Maximum 20 mg PO BID #30 tab 09/06/20 Strength] Magic Mouthwash 10 ml PO QID #240 ml 09/07/20 Diphen/Lido/Antacid 1:1:1 fluconazole 150 mg PO DAILY #3 tab 09/08/20 levofloxacin 500 mg PO DAILY #10 tab 09/09/20 metronidazole 500 mg PO BID #20 tab 09/09/20 nystatin 100,000 unit BUCCAL DAILY 10 Days 03/06/21 #10 ml Allergies Allergy/AdvReac Type Severity Reaction Status Date / Time No Known Allergies Allergy Verified 08/14/20 10:20 [No Known Allergies*] Review of Systems Review of Systems: Constitutional : No Weight loss, temperature up to 100.0 degrees F , No Chills, No Night Sweats, No Fatigue, No Malaise ENT/Mouth : No Hearing loss, No Ear Pain, No Nasal Congestion, No Sinus Pain, No Hoarseness, No sore throat, No Rhinorrhea, complaining of sores in his mouth in the oral mucosa and the tongue Eyes: No Eye Pain, No Swelling, No Redness, No Foreign Body, No Discharge, No Vision Changes Cardiovascular : No Chest Pain, No SOB, No Dyspnea on Exertion, No Orthopnea, No Edema, No Palpitations Respiratory : No Cough, No Sputum, No Wheezing, No Smoke Exposure, No Dyspnea Gastrointestinal : No Nausea, No Vomiting, complaining of multiple episodes of Diarrhea, No Constipation, intermittent periumbilical pain, nonradiating, No Hematochezia, No Melena Genitourinary : no irregular bleeding, complaining of dysuria for 4-5 days, No Urinary Frequency, No Hematuria, No Urinary Incontinence, No Urgency, No Flank Pain, No Urinary Flow Changes, No Hesitancy Musculoskeletal : No joint pain, No Myalgias, No Joint Swelling Skin : No Skin Lesions, states he had a rash around his chest but now resolved Neuro : No Weakness, No Numbness, No Paresthesias, No Loss of Consciousness, No Dizziness, No Headache Psych : No Anxiety/Panic, No Depression, No SI/HI/AH/VH, No Social Issues, Heme/Lymph: No Bruising, No Bleeding,No Lymphadenopathy Endocrine : No Polyuria, No Polydipsia, No Temperature Intolerance [facility] Past Medical History Medical History Anemia Diabetes Diverticula of colon Essential hypertension H/O malignant neoplasm of small intestine Hypertension Kidney mass Type 2 diabetes mellitus with unspecified complications Surgical History H/O sinus surgery History of esophagogastroduodenoscopy (EGD) Family History Family History (Updated 08/31/20 @ 09:15 by CARISSA Knowles) Father No problems noted. Mother Heart disease Social History Social History (Reviewed 08/31/20 @ 09:15 by Monica Montgomery [facility] [place]) Alcohol intake: former Smoking Status: Never smoker Tobacco Type: Cigar Use of substances other than those prescribed or required for medical reasons: Unknown Advance Directives: No Advance Directives Information Provided: No Physical Exam Vital Signs: Vital Signs: Last Vital Signs Temp 98.4 F 09/09/20 10:59 Pulse 90 09/09/20 10:59 Resp 16 09/09/20 10:59 BP 167/90 H 09/09/20 10:59 Pulse Ox 99 09/09/20 10:59 Body Mass Index 17.2 Appearance: Alert. Oriented X3. No acute distress. Eyes: Pupils equal, round and reactive to light. ENT: Patient has oral mucositis in bilateral sides of the mouth and also in the lateral aspects of the tongue, tender to palpation Neck: Normal inspection. Neck supple. No crepitus CVS: Normal heart rate and rhythm. Pulses normal. Normal S1 and S2 Respiratory: No respiratory distress. Breath sounds normal. No Wheezing. No rales Abdomen: Soft , [id number] tenderness to palpation in the periumbilical area above the incisional scar which is healing well. No rigidity. No distention. good BS x4 Skin: Skin warm and dry. Normal skin color. Normal skin turgor. Extremities: No lower extremity edema. No lower extremity edema. No Lacerations. No Rash Neuro: Oriented X 3. No motor deficit. No sensory deficit. Moving all extermities. No slurred speech. Course Course Course Narrative: I discussed the labs and CT with the patient. Patient's abdominal pain likely secondary to diverticulitis. No perforation. Patient will be treated with p.o. antibiotics. For the oral mucositis, patient will be prescribed nystatin. I discussed the CT scan findings with the patient, patient states that he is aware that he has a renal mass, states that he has an appointment scheduled in [facility], patient states he is not sure if he will have a partial or complete nephrectomy Medical Decision Making Lab Data Result diagrams: 09/09/20 09:07 09/09/20 09:41 Labs: Lab Results 09/09/20 09/09/20 09/09/20 Range/Units 09:06 09:07 09:41 WBC 7.3 (4.8-10.8) X10*3/uL RBC 4.11 L (4.60-5.80) X10*6/uL Hgb 13.7 L (14.0-18.0) g/dl Hct 39.8 L (42-52) % MCV 96.8 (80-98) fL MCH 33.3 H (27.0-33.0) pg MCHC 34.4 (31.0-36.0) g/dl RDW 13.6 (11.0-16.0) % Plt Count 116 L (160-400) X10*3/uL MPV 9.7 (9.4-12.4) fL Immature Gran % (Auto) 0.3 (0.0-0.4) % Neut % (Auto) 81.7 H (45-73) % Lymph % (Auto) 11.3 L (20-40) % Karnes % (Auto) 4.6 (2-11) % Eos % (Auto) 1.8 (0-4) % Baso % (Auto) 0.3 (0-2) % Lymph # (Auto) 0.8 L (1.2-4.9) X10*3/uL [place] # (Auto) 0.3 (0.1-1.2) X10*3/uL Eos # (Auto) 0.1 (0.0-0.4) X10*3/uL Baso # (Auto) 0.0 (0.0-0.2) X10*3/uL Abs Immat Gran (auto) 0.02 (0.00-0.03) X10*3/uL Absolute Neuts (auto) 6.0 (2.0-8.3) X10*3/uL Absolute Nucleated RBC 0.000 (0.0-0.012) X10*3/uL Nucleated RBC % (auto) 0.0 (0.0-0.2) /100WBC PT 15.9 H D (10.8-13.0) SEC INR 1.3 H (0.9-1.1) Sodium 135 (135-145) mmol/L Potassium 4.4 (3.3-5.1) mmol/L Chloride 102 (96-108) mmol/L Carbon Dioxide 25 (22-29) mmol/L Anion Gap 12 (12-20) BUN 12 (9-16) mg/dL Creatinine 0.93 (0.5-1.4) mg/dL Estim Creat Clear Calc 62.5 Estimated GFR > 60 Random Glucose 221 H (60-115) mg/dL Calcium 8.4 D (8.4-10.2) mg/dL Total Bilirubin 0.7 (0.0-1.0) mg/dL Direct Bilirubin 0.3 (0.0-0.5) mg/dL AST 18 (5-37) U/L ALT 19 (0-40) U/L Alkaline Phosphatase 72 D (39-117) U/L Total Protein 5.8 L (6.5-8.0) g/dL Albumin 3.5 (3.5-5.0) g/dL Lipase 14 (8-78) U/L Urine Color Urine Appearance Urine pH (5.0-8.0) Ur Specific [place] (1.005-1.025) Urine Protein (NEG-TRACE) MG/DL Urine Glucose (UA) (NEG) MG/DL Urine Ketones (NEG) MG/DL Urine Blood (NEG) Urine Nitrite (NEG) Ur Leukocyte Esterase (NEG) 09/09/20 Range/Units 10:50 WBC (4.8-10.8) X10*3/uL RBC (4.60-5.80) X10*6/uL Hgb (14.0-18.0) g/dl Hct (42-52) % MCV (80-98) fL MCH (27.0-33.0) pg MCHC (31.0-36.0) g/dl RDW (11.0-16.0) % Plt Count (160-400) X10*3/uL MPV (9.4-12.4) fL Immature Gran % (Auto) (0.0-0.4) % Neut % (Auto) (45-73) % Lymph % (Auto) (20-40) % Karnes % (Auto) (2-11) % Eos % (Auto) (0-4) % Baso % (Auto) (0-2) % Lymph # (Auto) (1.2-4.9) X10*3/uL [place] # (Auto) (0.1-1.2) X10*3/uL Eos # (Auto) (0.0-0.4) X10*3/uL Baso # (Auto) (0.0-0.2) X10*3/uL Abs Immat Gran (auto) (0.00-0.03) X10*3/uL Absolute Neuts (auto) (2.0-8.3) X10*3/uL Absolute Nucleated RBC (0.0-0.012) X10*3/uL Nucleated RBC % (auto) (0.0-0.2) /100WBC PT (10.8-13.0) SEC INR (0.9-1.1) Sodium (135-145) mmol/L Potassium (3.3-5.1) mmol/L Chloride (96-108) mmol/L Carbon Dioxide (22-29) mmol/L Anion Gap (12-20) BUN (9-16) mg/dL Creatinine (0.5-1.4) mg/dL Estim Creat Clear Calc Estimated GFR Random Glucose (60-115) mg/dL Calcium (8.4-10.2) mg/dL Total Bilirubin (0.0-1.0) mg/dL Direct Bilirubin (0.0-0.5) mg/dL AST (5-37) U/L ALT (0-40) U/L Alkaline Phosphatase (39-117) U/L Total Protein (6.5-8.0) g/dL Albumin (3.5-5.0) g/dL Lipase (8-78) U/L Urine Color YELLOW Urine Appearance HAZY Urine pH 5.5 (5.0-8.0) Ur Specific [place] >= 1.030 H (1.005-1.025) Urine Protein TRACE (NEG-TRACE) MG/DL Urine Glucose (UA) 500 H (NEG) MG/DL Urine Ketones 15 (NEG) MG/DL Urine Blood NEG (NEG) Urine Nitrite NEG (NEG) Ur Leukocyte Esterase NEG (NEG) Imaging Data Chest x-ray: Radiologist's impression: FINDINGS: The lungs are well-expanded and clear of acute process. Heart size and pulmonary vascularity is normal. No gross bony abnormality seen. XR/XR chest 1V IMPRESSION: Unremarkable chest exam. Discharge Plan Discharge Clinical Impression: Diverticulitis, Mucositis due to chemotherapy Patient Disposition: Home, Self-Care Instructions: Diverticulitis (ED), Oral Mucositis (ED) Additional Instructions: Please follow-up with your primary care physician tomorrow. If you have any worsening or new symptoms, please return to the emergency room or call 911 Prescriptions: New levofloxacin 500 mg tablet 500 mg PO DAILY Qty: 10 RF: 0 metronidazole 500 mg tablet 500 mg PO BID Qty: 20 RF: 0 nystatin 100,000 unit/mL suspension 100,000 unit buccal DAILY 10 Days Qty: 10 RF: 0 No Action ondansetron HCl 4 mg tablet 1 tab PO Q6-8H PRN (Reason: nausea) RF: 0 ferrous sulfate 325 mg (65 mg iron) tablet 1 tab PO BID RF: 0 metformin 1,000 mg tablet 1 tab PO DAILY RF: 0 cholecalciferol (vitamin D3) [Vitamin D3] 125 mcg (5,000 unit) tablet 1 tab PO DAILY RF: 0 dexamethasone 4 mg tablet 4 mg PO BID PRN (Reason: Nausea) RF: 0 losartan 100 mg tablet 100 mg PO DAILY RF: 0 capecitabine 500 mg Tablet 2,000 mg PO BID Qty: 112 RF: 4 famotidine [Pepcid AC Maximum Strength] 20 mg Tablet 20 mg PO BID Qty: 30 RF: 0 Magic Mouthwash Diphen/Lido/Antacid 1:1:1 240 mL Suspension 10 ml PO QID Qty: 240 RF: 4 fluconazole 150 mg Tablet 150 mg PO DAILY Qty: 3 RF: 0 hydrochlorothiazide 12.5 mg capsule 12.5 mg PO DAILY RF: 0
[2020-09-09] MEDS: 0.9 % Sodium Chloride 1,000 ML 999 ML IVCONT (09:15)
[2020-09-09 09:21] LABS: Basophils Percent Auto 0.3 % (0-2); Hematocrit 39.8 % (42-52); Imm Gran Abs Auto 0.02 X10*3/uL (0.00-0.03); Imm Gran Pct Auto 0.3 % (0.0-0.4); PLT CLUMP 1; SCAN SMEAR FLAG 1
[2020-09-09 09:23] LABS: Eosinophils Absolute Auto 0.1 X10*3/uL (0.0-0.4); Eosinophils Percent Auto 1.8 % (0-4); Hemoglobin 13.7 g/dl (14.0-18.0); Lymphocytes Absolute Auto 0.8 X10*3/uL (1.2-4.9); Lymphocytes Percent Auto 11.3 % (20-40); Mean Corpuscular HGB Conc 34.4 g/dl (31.0-36.0); Mean Corpuscular Hemoglobin 33.3 pg (27.0-33.0); Mean Corpuscular Volume 96.8 fL (80-98); Mean Platelet Volume 9.7 fL (9.4-12.4); Monocytes Absolute Auto 0.3 X10*3/uL (0.1-1.2); Monocytes Percent Auto 4.6 % (2-11); Neutrophils Percent Auto 81.7 % (45-73); Platelet Count 116 X10*3/uL (160-400); Red Blood Count 4.11 X10*6/uL (4.60-5.80); Red Cell Distribution Width 13.6 % (11.0-16.0); White Blood Count 7.3 X10*3/uL (4.8-10.8)
[2020-09-09 09:29] LABS: INTERNATIONAL NORM RATIO 1.3 (0.9-1.1); Prothrombin Time 15.9 SEC (10.8-13.0)
[2020-09-09 10:14] LABS: Alanine Aminotransferase 19 U/L (0-40); Albumin Level 3.5 g/dL (3.5-5.0); Alkaline Phosphatase 72 U/L (39-117); Anion Gap 12 (12-20); Aspartate Amino Transferase 18 U/L (5-37); Bilirubin Direct 0.3 mg/dL (0.0-0.5); Bilirubin Total 0.7 mg/dL (0.0-1.0); Blood Urea Nitrogen 12 mg/dL (9-16); Calcium 8.4 mg/dL (8.4-10.2); Carbon Dioxide 25 mmol/L (22-29); Chloride 102 mmol/L (96-108); Creatinine Clr Calc Pharmacy 62.5; Estimated Glomerular Filt Rate > 60; Glucose Random 221 mg/dL (60-115); Lipase 14 U/L (8-78); Potassium 4.4 mmol/L (3.3-5.1); Sodium 135 mmol/L (135-145); Total Protein 5.8 g/dL (6.5-8.0)
--- NOTE | 2020-09-09 10:30 | PC.NURSE ---
pt currently in CT
[2020-09-09 10:59] VITALS: BP 167/90; PULSE 90; RESP 16; TEMP 36.9; O2SAT 99
[2020-09-09 11:00] LABS: Appearance Urine HAZY; Color Urine YELLOW; Glucose Urine UA 500 MG/DL (NEG); Leukocyte Esterase Urine NEG (NEG); Nitrite Urine NEG (NEG); PH 5.5 (5.0-8.0); Specific Gravity - Urine >= 1.030 (1.005-1.025); Urine Blood NEG (NEG); Urine Ketones 15 MG/DL (NEG); Urine Protein TRACE MG/DL (NEG-TRACE)
[2020-09-09] MEDS: iohexoL 350 MG/ML 75 ML INFUS..BTL IV (11:06)
[2020-09-09] MEDS: metroNIDAZOLE 500 MG TABLET PO (12:42)
[2020-09-09] MEDS: levoFLOXacin 500 MG TABLET PO (12:43)
== END 2020-09-09 12:50 | disposition home or self-care (01) ==
PROVIDERS: Emergency Provider Emergency Medicine
DX: K57.92 Diverticulitis of intestine, part unspecified, without perforation or abscess without bleeding (principal); K12.31 Oral mucositis (ulcerative) due to antineoplastic therapy; T45.1X5A Adverse effect of antineoplastic and immunosuppressive drugs, initial encounter; Y92.019 Unspecified place in single-family (private) house as the place of occurrence of the external cause; E11.9 Type 2 diabetes mellitus without complications; I10 Essential (primary) hypertension; Z85.068 Personal history of other malignant neoplasm of small intestine; Z92.21 Personal history of antineoplastic chemotherapy; Z79.84 Long term (current) use of oral hypoglycemic drugs
CPT/HCPCS: 36415; 71045; 74177; 80048; 80076; 81003; 83690; 85025; 85610; 96360; 99284; Q9967

== ENCOUNTER 2020-11-16 20:14 | Emergency (ER) | payer OTHER, SELFPAY ==
--- NOTE | ~2020-11-16 | CT_ITS ---
EXAMINATION: CT HEAD WITHOUT CONTRAST CLINICAL INFORMATION: Accelerated hypertension with headache COMPARISON: 07/08/2020 TECHNIQUE: Contiguous axial imaging was performed from the skull base to vertex without intravenous contrast. This CT examination was performed using dose optimization techniques as appropriate, variously including the following: * Automated exposure control * Adjustment of mA and/or kV according to patient size (this includes techniques or standardized protocols for targeted exams where dose is matched to indication/reason for exam; i.e. extremities or head) Use of iterative reconstruction technique DLP: 747 mGy-cm. FINDINGS: There is no evidence of acute intracranial hemorrhage or territorial infarction. No abnormal mass effect or midline shift is seen. Valentino to white matter differentiation is well preserved. No extra-axial fluid collections are identified. No hydrocephalus. Proportional prominence of the ventricles and sulcal spaces is consistent with mild volume loss. Patchy periventricular and deep white matter hypoattenuation is consistent with mild small vessel ischemic changes. The osseous structures and soft tissues are normal. Mild mucosal thickening of the left maxillary sinus. The mastoid air cells and visualized portions of the paranasal sinuses are otherwise well aerated. CT/CT head/brain wo con IMPRESSION: No acute intracranial pathology.
[2020-11-16 21:26] VITALS: BP 165/100; PULSE 83; RESP 18; TEMP 36.6; O2SAT 98; BMI 24.5
--- NOTE | 2020-11-16 21:40 | ED.GENADULT ---
HPI - General Adult General Chief complaint: Recheck/Abnormal Lab/Rx Stated complaint: high bs Time Seen by Provider: 11/16/20 21:40 Source: patient Mode of arrival: ambulatory Limitations: no limitations History of Present Illness HPI narrative: Patient's history of colon cancer, hypertension on losartan 100 mg and hydrochlorothiazide 12.5 mg daily. Patient took his losartan at 16:00. At 17:00 noticed headache in the occipital area no nausea no vomiting checked his blood pressure was in 170s/104. Patient never had such high blood pressure usual blood pressure is 140/70. No focal deficits no chest pain no shortness of breath headache is getting better blood pressure on arrival was 165/100 Related Data Home Medications Medication Instructions Recorded Confirmed ferrous sulfate 1 tab PO BID 04/19/20 08/31/20 metformin 1 tab PO DAILY 04/19/20 08/31/20 ondansetron HCl 1 tab PO Q6-8H PRN 04/19/20 08/31/20 dexamethasone 4 mg tablet 4 mg PO BID PRN 07/19/20 08/31/20 hydrochlorothiazide 12.5 mg capsule 12.5 mg PO DAILY 07/19/20 08/31/20 losartan 100 mg tablet 100 mg PO DAILY tab 07/19/20 08/31/20 nystatin 100,000 unit BUCCAL DAILY 09/12/20 09/12/20 Previous Rx's Medication Instructions Recorded capecitabine 2,000 mg PO BID #112 tab 08/11/20 famotidine [Pepcid AC Maximum 20 mg PO BID #30 tab 09/06/20 Strength] fluconazole 150 mg PO DAILY #3 tab 09/08/20 levofloxacin 500 mg PO DAILY #10 tab 09/09/20 metronidazole 500 mg PO BID #20 tab 09/09/20 Magic Mouthwash 10 ml PO QID #240 ml 09/15/20 Diphen/Lido/Antacid 1:1:1 cholecalciferol (vitamin D3) 1 tab PO DAILY #90 tab 11/15/20 [Vitamin D3] lorazepam [Ativan] 0.5 mg PO BEDTIME PRN #20 tab 11/17/20 Allergies Allergy/AdvReac Type Severity Reaction Status Date / Time No Known Allergies Allergy Verified 11/16/20 21:32 [No Known Allergies*] Review of Systems Review of Systems: Constitutional : ++ Weight loss, No Fever, No Chills ENT/Mouth : No sore throat, No Rhinorrhea Eyes: No Eye Pain, No Swelling Cardiovascular : No Chest Pain, no palpitations Respiratory : No Cough, No Sputum, no shortness of breath Gastrointestinal : no Nausea, No Vomiting, No Diarrhea, No abdominal Pain, no black stools Genitourinary : No Dysuria, No Urinary Frequency Musculoskeletal : No joint pain, No Myalgias, No Joint Swelling Skin : No Skin Lesions, No rash Neuro : No Weakness, No Numbness, No Dizziness, ++ Headache Psych : No Anxiety/Panic, No Depression Heme/Lymph: No Bruising, No Lymphadenopathy Endocrine : No Polyuria, No Polydipsia All other systems reviewed and are negative FOR[facility]LY [facility] Past Medical History Medical History Anemia Diabetes Diverticula of colon Essential hypertension H/O malignant neoplasm of small intestine Hypertension Kidney mass Type 2 diabetes mellitus with unspecified complications Surgical History H/O sinus surgery History of esophagogastroduodenoscopy (EGD) Family History Family History Father No problems noted. Mother Heart disease Social History Social History Alcohol intake: never Smoking Status: Never smoker Tobacco Type: Cigar Use of substances other than those prescribed or required for medical reasons: No Advance Directives: No Advance Directives Information Provided: No Physical Exam Vital Signs: Vital Signs: Last Vital Signs Temp 97.8 F 11/16/20 21:26 Pulse 83 11/16/20 21:26 Resp 18 11/16/20 21:26 BP 165/100 H 11/16/20 21:26 Pulse Ox 98 11/16/20 21:26 Body Mass Index 24.5 Appearance: Alert. Oriented X3. No acute distress. Eyes: PERRLA, No Nystagmus ENT: Pharynx normal. Oral Mucosa moist Neck: Normal inspection. Neck supple. CVS: Normal heart rate and rhythm. Pulses normal. Respiratory: No respiratory distress. Equal air entry bilateral, no wheezing/rales/rhonchi Abdomen: Soft and nontender. Bowel sounds are present, no mass palpable, no CVA tenderness Skin: Skin warm and dry. Normal skin color. Normal skin turgor. Extremities: No lower extremity edema. No calf tenderness Neuro: Oriented X 3. No motor deficit. No sensory deficit.No cerebellar signs , cranial nerves II-XII intact Medical Decision Making MDM Narrative Medical decision making narrative: Patient has hypertension with increased stress repeat blood pressure improved to 160/[address] negative for any acute subarachnoid bleed headache is better. Will give medication to relax as patient little stress lately because of colon cancer diagnosis labs are stable advised to follow-up with PCP Lab Data Lab results reviewed: Yes I reviewed the patient's lab results. Result diagrams: 11/16/20 22:34 11/16/20 22:34 Labs: Lab Results 11/16/20 11/16/20 11/16/20 Range/Units 22:34 22:34 22:34 WBC 6.2 (4.8-10.8) X10*3/uL RBC 4.06 L (4.60-5.80) X10*6/uL Hgb 13.4 L (14.0-18.0) g/dl Hct 38.7 L (42-52) % MCV 95.3 (80-98) fL MCH 33.0 (27.0-33.0) pg MCHC 34.6 (31.0-36.0) g/dl RDW 12.1 (11.0-16.0) % Plt Count 170 D (160-400) X10*3/uL MPV 9.0 L (9.4-12.4) fL Immature Gran % (Auto) 0.2 (0.0-0.4) % Neut % (Auto) 61.7 (45-73) % Lymph % (Auto) 24.5 (20-40) % [place] % (Auto) 12.2 H (2-11) % Eos % (Auto) 1.1 (0-4) % Baso % (Auto) 0.3 (0-2) % Lymph # (Auto) 1.5 (1.2-4.9) X10*3/uL [place] # (Auto) 0.8 (0.1-1.2) X10*3/uL Eos # (Auto) 0.1 (0.0-0.4) X10*3/uL Baso # (Auto) 0.0 (0.0-0.2) X10*3/uL Abs Immat Gran (auto) 0.01 (0.00-0.03) X10*3/uL Absolute Neuts (auto) 3.8 (2.0-8.3) X10*3/uL Absolute Nucleated RBC 0.000 (0.0-0.012) X10*3/uL Nucleated RBC % (auto) 0.0 (0.0-0.2) /100WBC PT 12.7 D (10.8-13.0) SEC INR 1.1 (0.9-1.1) Sodium 137 (135-145) mmol/L Potassium 3.9 D (3.3-5.1) mmol/L Chloride 99 (96-108) mmol/L Carbon Dioxide 29 (22-29) mmol/L Anion Gap 13 (12-20) BUN 18 H D (9-16) mg/dL Creatinine 0.86 (0.5-1.4) mg/dL Estim Creat Clear Calc 93.6 Estimated GFR > 60 Random Glucose 134 H (60-115) mg/dL Calcium 9.6 (8.4-10.2) mg/dL Discharge Plan Discharge Clinical Impression: Hypertension Qualifiers: Hypertension type: essential hypertension Qualified Code(s): I10 - Essential (primary) hypertension Patient Disposition: Home, Self-Care Instructions: Hypertension (ED) Additional Instructions: Continue medication for blood pressure Increase the dose of hydrochlorothiazide to 2 tablets in the morning if blood pressure stays higher than 160/100 and follow-up with your PCP Medication to relax and sleep as prescribed Prescriptions: New lorazepam [Ativan] 0.5 mg tablet 0.5 mg PO BEDTIME PRN (Reason: sleep) Qty: 20 RF: 0 No Action ondansetron HCl 4 mg tablet 1 tab PO Q6-8H PRN (Reason: nausea) RF: 0 ferrous sulfate 325 mg (65 mg iron) tablet 1 tab PO BID RF: 0 metformin 1,000 mg tablet 1 tab PO DAILY RF: 0 dexamethasone 4 mg tablet 4 mg PO BID PRN (Reason: Nausea) RF: 0 losartan 100 mg tablet 100 mg PO DAILY RF: 0 capecitabine 500 mg Tablet 2,000 mg PO BID Qty: 112 RF: 4 famotidine [Pepcid AC Maximum Strength] 20 mg Tablet 20 mg PO BID Qty: 30 RF: 0 fluconazole 150 mg Tablet 150 mg PO DAILY Qty: 3 RF: 0 nystatin 100,000 unit/mL suspension 100,000 unit buccal DAILY RF: 0 Magic Mouthwash Diphen/Lido/Antacid 1:1:1 240 mL Suspension 10 ml PO QID Qty: 240 RF: 4 cholecalciferol (vitamin D3) [Vitamin D3] 125 mcg (5,000 unit) tablet 1 tab PO DAILY Qty: 90 RF: 2 levofloxacin 500 mg tablet 500 mg PO DAILY Qty: 10 RF: 0 metronidazole 500 mg tablet 500 mg PO BID Qty: 20 RF: 0 hydrochlorothiazide 12.5 mg capsule 12.5 mg PO DAILY RF: 0
[2020-11-16 22:40] LABS: Basophils Percent Auto 0.3 % (0-2); Eosinophils Absolute Auto 0.1 X10*3/uL (0.0-0.4); Eosinophils Percent Auto 1.1 % (0-4); Hematocrit 38.7 % (42-52); Hemoglobin 13.4 g/dl (14.0-18.0); Imm Gran Abs Auto 0.01 X10*3/uL (0.00-0.03); Imm Gran Pct Auto 0.2 % (0.0-0.4); Lymphocytes Absolute Auto 1.5 X10*3/uL (1.2-4.9); Lymphocytes Percent Auto 24.5 % (20-40); MANUAL DIFF FLAG NO; Mean Corpuscular HGB Conc 34.6 g/dl (31.0-36.0); Mean Corpuscular Volume 95.3 fL (80-98); Monocytes Absolute Auto 0.8 X10*3/uL (0.1-1.2); Monocytes Percent Auto 12.2 % (2-11); Neutrophils Absolute Auto 3.8 X10*3/uL (2.0-8.3); Neutrophils Percent Auto 61.7 % (45-73); Platelet Count 170 X10*3/uL (160-400); Red Blood Count 4.06 X10*6/uL (4.60-5.80); Red Cell Distribution Width 12.1 % (11.0-16.0); White Blood Count 6.2 X10*3/uL (4.8-10.8)
[2020-11-16 22:48] LABS: INTERNATIONAL NORM RATIO 1.1 (0.9-1.1); Prothrombin Time 12.7 SEC (10.8-13.0)
[2020-11-16 23:05] LABS: Anion Gap 13 (12-20); Blood Urea Nitrogen 18 mg/dL (9-16); Calcium 9.6 mg/dL (8.4-10.2); Carbon Dioxide 29 mmol/L (22-29); Chloride 99 mmol/L (96-108); Creatinine Clr Calc Pharmacy 93.6; Estimated Glomerular Filt Rate > 60; Glucose Random 134 mg/dL (60-115); Potassium 3.9 mmol/L (3.3-5.1); Sodium 137 mmol/L (135-145)
[2020-11-16] MEDS: LORazepam 0.5 MG TABLET PO (23:50)
[2020-11-17] VITALS: BP 163/63; PULSE 96; RESP 15; O2SAT 98
== END 2020-11-17 01:03 | disposition home or self-care (01) ==
PROVIDERS: Emergency Provider Internal Medicine
DX: I10 Essential (primary) hypertension (principal); R51.9 Headache, unspecified; E11.9 Type 2 diabetes mellitus without complications; Z79.899 Other long term (current) drug therapy
CPT/HCPCS: 36415; 70450; 80048; 85025; 85610; 99284

== ENCOUNTER 2020-12-15 07:52 | Outpatient (REF) | payer OTHER, SELFPAY ==
--- NOTE | ~2020-12-15 | CT_ITS ---
EXAMINATION: CT CHEST WITH CONTRAST CLINICAL INFORMATION: Adenocarcinoma of the small intestine. Renal mass. COMPARISON: Previous chest CTA July 2020 TECHNIQUE: Multidetector volumetric CT imaging of the chest was obtained after the administration of 85 mL of Omnipaque 350 intravenous contrast without immediate adverse reactions. Axial MIP volume rendering provided. Sagittal and coronal reformatted images were obtained. This CT examination was performed using dose optimization techniques as appropriate, variously including the following: *Automated exposure control *Adjustment of mA and/or kV according to patient size (this includes techniques or standardized protocols for targeted exams where dose is matched to indication/reason for exam; i.e. 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 MEDIASTINUM: The mediastinum is normal. PLEURA: There is no pleural effusion. No pleural mass or thickening. AXILLA: No lymphadenopathy. UPPER ABDOMEN: The liver is low in attenuation. There is a 3.2 cm heterogeneous mass in the upper pole of the right kidney. There is a 1.5 cm cyst exophytic to the posterior upper pole of the left kidney. OSSEOUS STRUCTURES: There are degenerative changes of the spine. CT/CT chest w con IMPRESSION: No evidence of metastatic disease.
--- NOTE | ~2020-12-15 | CT_ITS ---
EXAMINATION: CT ABDOMEN AND PELVIS WITH CONTRAST CLINICAL INFORMATION: Cancer of the small intestine. Renal mass. Restaging after treatment. COMPARISON: Previous CT of the abdomen and pelvis most recent 09/09/2020 TECHNIQUE: Multidetector volumetric images were obtained from the superior aspect of the liver through the pubic symphysis following administration 85 mL of Omnipaque 350 intravenous contrast. Sagittal and coronal reformatted images were obtained on the technologist's workstation. Oral contrast: Yes This CT examination was performed using dose optimization techniques as appropriate, variously including the following: *Automated exposure control *Adjustment of mA and/or kV according to patient size (this includes techniques or standardized protocols for targeted exams where dose is matched to indication/reason for exam; i.e. extremities or head) *Use of iterative reconstruction technique DLP: 424 mGy-cm FINDINGS: LUNG BASES: The visualized lung bases are unremarkable. LIVER, GALLBLADDER, AND BILIARY TREE: The liver is normal in size, shape, and attenuation. No focal hepatic lesion or biliary ductal dilatation is present. The gallbladder is unremarkable with no evidence of radiopaque gallstones, gallbladder wall thickening, or obvious pericholecystic inflammatory changes. PANCREAS: Unremarkable. SPLEEN: Unremarkable. ADRENAL GLANDS: There is fullness of the left adrenal gland. This is stable from previous exams. The right adrenal gland is normal. KIDNEYS AND URETERS: There is a partially solid partially cystic lesion in the upper pole of the right kidney that measures 3.4 x 3.5 cm. This appears unchanged. There are multiple bilateral renal cysts that appear unchanged. The largest measures 2 cm in the upper and lower pole the left kidney. BLADDER: Not optimally distended. GASTROINTESTINAL TRACT: There are postsurgical changes to the small bowel. There is diverticulosis of the colon. There is stool throughout the colon suggestive of constipation. The appendix is normal. The stomach is normal. ABDOMINAL WALL: No significant hernia is appreciated. LYMPH NODES: There are no enlarged lymph nodes. There is no ascites. VASCULAR: Unremarkable. PELVIC VISCERA: Unremarkable. OSSEOUS STRUCTURES: There are degenerative changes of the spine. CT/CT abdomen pelvis w con IMPRESSION: Stable postsurgical changes to the small bowel. Diverticulosis of the colon. Stool throughout the colon suggestive of constipation. Stable 3.4 x 3.5 cm partially solid partially cystic lesion in the upper pole of the right kidney suspicious for neoplasm. Small bilateral renal cysts. Stable fullness of the left adrenal gland.
[2020-12-15] MEDS: iohexoL 350 MG/ML 100 ML INFUS..BTL IV (09:25)
[2020-12-15 10:36] LABS: Glucose Urine UA 100 MG/DL (NEG); Leukocyte Esterase Urine NEG (NEG); Nitrite Urine NEG (NEG); PH 5.5 (5.0-8.0); Urine Blood NEG (NEG); Urine Ketones NEG (NEG); Urine Protein NEG (NEG-TRACE)
[2020-12-15 10:40] LABS: Appearance Urine CLEAR; Color Urine YELLOW
== END 2020-12-15 07:53 | disposition home or self-care (01) ==
LOC: HO.CT 07:52
PROVIDERS: Absent Provider Urology; PCP Internal Medicine; Visit Provider Internal Medicine
DX: C64.1 Malignant neoplasm of right kidney, except renal pelvis (principal); N28.89 Other specified disorders of kidney and ureter; Z85.068 Personal history of other malignant neoplasm of small intestine
CPT/HCPCS: 71260; 74177; 81003; 87086; Q9967

== ENCOUNTER 2021-04-23 11:06 | Outpatient (REF) | payer OTHER, SELFPAY ==
[2021-04-23 12:33] LABS: Prostate Specific Antigen 1.03 ng/mL (<0.05-4.0)
== END 2021-04-23 11:07 | disposition home or self-care (01) ==
LOC: HO.LAB 11:06
PROVIDERS: PCP Internal Medicine; Visit Provider Internal Medicine
DX: N40.0 Benign prostatic hyperplasia without lower urinary tract symptoms (principal); Z12.5 Encounter for screening for malignant neoplasm of prostate
CPT/HCPCS: 36415; 84153

== ENCOUNTER 2021-07-19 07:17 | Outpatient (REF) | payer OTHER, SELFPAY ==
--- NOTE | ~2021-07-19 | CT_ITS ---
EXAMINATION: CT ABDOMEN AND PELVIS WITH CONTRAST CLINICAL INFORMATION: Surveillance for small bowel cancer. COMPARISON: CT abdomen and pelvis with contrast 12/15/2020. TECHNIQUE: Multidetector volumetric images were obtained from the superior aspect of the liver through the pubic symphysis following administration 85 mL of Omnipaque 350 intravenous contrast. Sagittal and coronal reformatted images were obtained on the technologist's workstation. Oral contrast: No This CT examination was performed using dose optimization techniques as appropriate, variously including the following: *Automated exposure control *Adjustment of mA and/or kV according to patient size (this includes techniques or standardized protocols for targeted exams where dose is matched to indication/reason for exam; i.e. extremities or head) *Use of iterative reconstruction technique DLP: 485 mGy-cm FINDINGS: LUNG BASES: The lung bases are unremarkable. The heart size is normal. LIVER, GALLBLADDER, AND BILIARY TREE: The liver is normal in size, shape, and attenuation. No focal hepatic lesion or biliary ductal dilatation is present. The gallbladder is unremarkable with no evidence of radiopaque gallstones, gallbladder wall thickening, or obvious pericholecystic inflammatory changes. PANCREAS: Unremarkable. SPLEEN: Unremarkable. ADRENAL GLANDS: Unremarkable. KIDNEYS AND URETERS: The kidneys are normal in size, shape, and attenuation. No hydronephrosis, hydroureter, or calculi seen. No perinephric stranding. There are nonenhancing lower and upper pole cysts in left kidney measuring 2 cm. There is a subtle hypodense ill-defined area in the upper pole right kidney, likely lesion, old infarct or post intervention changes. Previously patient had a large solid/cystic mass on 12/15/2020 exam. BLADDER: The bladder is contracted with mild bladder wall thickening. GASTROINTESTINAL TRACT: There is scattered stool, gas and diverticula seen throughout the colon without colonic distention or diverticulitis. There is nonspecific mild mural thickening distal sigmoid and rectum. Postsurgical changes small bowel in the left mid abdomen. No recurrent mass seen. There is nonspecific haziness in the surgical site. Otherwise small bowel loops are normal caliber. Appendix is normal caliber. No inflammatory process, free air or free fluid seen in the abdomen. ABDOMINAL WALL: No significant hernia is appreciated. LYMPH NODES: Normal. VASCULAR: Unremarkable. PELVIC VISCERA: There is no free air or free fluid, stable. OSSEOUS STRUCTURES: No lytic or sclerotic process. CT/CT abdomen pelvis w con IMPRESSION: Interval regression of right upper lobe renal mass likely post intervention. Partially exophytic left no cysts are stable. Mild constipation. Colonic diverticulosis without diverticulitis. No GI mass or abnormal retroperitoneal lymph nodes seen. Fleischner guidelines were followed.
[2021-07-19] MEDS: iohexoL 350 MG/ML 100 ML INFUS..BTL IV (07:54)
== END 2021-07-19 07:18 | disposition home or self-care (01) ==
LOC: HO.CT 07:17
PROVIDERS: PCP Internal Medicine; Visit Provider Internal Medicine
DX: C17.9 Malignant neoplasm of small intestine, unspecified (principal); E11.8 Type 2 diabetes mellitus with unspecified complications; Z86.010 Personal history of colon polyps
CPT/HCPCS: 74177; 99212; Q9967

== ENCOUNTER 2021-08-08 15:22 | Outpatient (REF) | payer OTHER, SELFPAY ==
[2021-08-08 15:58] LABS: Appearance Urine CLEAR; Color Urine YELLOW; Glucose Urine UA 250 MG/DL (NEG); Leukocyte Esterase Urine NEG (NEG); Nitrite Urine NEG (NEG); PH 5.5 (5.0-8.0); Specific Gravity - Urine 1.025 (1.005-1.025); Urine Blood NEG (NEG); Urine Ketones NEG (NEG); Urine Protein NEG (NEG-TRACE)
[2021-08-08 16:05] LABS: Bacteria Urine TRACE /LPF; RBC Urine 0 /HPF (0); Squamous Epithelial Cell Urine TRACE /LPF; WBC Urine 0 /HPF (0-4)
== END 2021-08-08 15:23 | disposition home or self-care (01) ==
LOC: HO.LAB 15:22
PROVIDERS: PCP Internal Medicine; Visit Provider Nurse Practitioner
DX: N32.89 Other specified disorders of bladder (principal)
CPT/HCPCS: 81001

== ENCOUNTER 2021-08-28 06:34 | Day surgery (SDC) | payer OTHER, SELFPAY ==
--- NOTE | 2021-08-24 10:20 | HO.ANESPROP2 ---
Documented by User: Mely Barrera NP 08/24/21 10:21 HPI - Anesthesia Eval Consult details Narrative: 66yo M for Colonoscopy PMFSH Active Problems Active Problems: All Active Problems (Updated 07/19/21 @ 12:58 by Zhou Mitchell MD) History of colon polyps (Acute) Upper respiratory symptom (Acute) Annual physical exam (Acute) Small bowel carcinoma (Chronic) SOB (shortness of breath) on exertion (Acute) Chemotherapy follow-up examination (Acute) H/O malignant neoplasm of small intestine (Acute) Renal cell carcinoma of right kidney (Acute) Essential hypertension (Acute) Type 2 diabetes mellitus with unspecified complications (Acute) Past Medical History Medical History Anemia Diabetes Diverticula of colon Essential hypertension H/O malignant neoplasm of small intestine Hypertension Kidney mass Renal cell carcinoma of right kidney Type 2 diabetes mellitus with unspecified complications Family History Family History Father No problems noted. Mother Heart disease Surgical History Surgical History H/O sinus surgery History of esophagogastroduodenoscopy (EGD) Hx of colonoscopy Hx of kidney removal Social History Social History Housing: Apartment Alcohol intake: former Patient Tobacco Use Status: Former Tobacco user Tobacco use type: Cigar Second Hand Smoke Exposure: No Use of substances other than those prescribed or required for medical reasons: No Are you DNR?: No Advance Directives: No Advance Directives Information Provided: No service: No Current occupational status: retired Meds Allergies Allergy/AdvReac Type Severity Reaction Status Date / Time No Known Allergies Allergy Verified 08/28/21 07:19 [No Known Allergies*] Home Medications Medication Instructions Recorded Confirmed Last Taken Type famotidine 20 mg tablet (Pepcid AC 20 mg PO BID PRN tab 11/22/20 07/19/21 08/28/21 06:15 History Maximum Strength) docusate sodium 50 mg capsule 50 mg PO DAILY 01/30/21 07/19/21 Unknown History Exam Exam Date and Time: August 24, 2021 1020 Pertinent Lab Results Pertinent Lab Results: Laboratory Tests 07/04/21 07/04/21 13:23 13:23 WBC 8.7 Hgb 14.9 Hct 43.8 Plt Count 278 Sodium 141 Potassium 4.1 Chloride 105 Carbon Dioxide 28 BUN 19 H Creatinine 1.43 H Assessment and Plan Assessment Anesthesia Assessment: Chart Reviewed Documented by User: Larry Reardon MD 08/28/21 08:35 [facility] Past Medical History Medical History Anemia Diabetes Diverticula of colon Essential hypertension H/O malignant neoplasm of small intestine Hypertension Kidney mass Renal cell carcinoma of right kidney Type 2 diabetes mellitus with unspecified complications Family History Family History Father No problems noted. Mother Heart disease Family history of problems with anesthesia: No Surgical History Surgical History H/O sinus surgery History of esophagogastroduodenoscopy (EGD) Hx of colonoscopy Hx of kidney removal History of Problems with Anesthesia: No Social History Social History Housing: Apartment Alcohol intake: former Patient Tobacco Use Status: Former Tobacco user Tobacco use type: Cigar Second Hand Smoke Exposure: No Use of substances other than those prescribed or required for medical reasons: No Are you DNR?: No Advance Directives: No Advance Directives Information Provided: No service: No Current occupational status: retired Meds Allergies Allergy/AdvReac Type Severity Reaction Status Date / Time No Known Allergies Allergy Verified 08/28/21 07:19 [No Known Allergies*] Home Medications Medication Instructions Recorded Confirmed Last Taken Type famotidine 20 mg tablet (Pepcid AC 20 mg PO BID PRN tab 11/22/20 07/19/21 08/28/21 06:15 History Maximum Strength) docusate sodium 50 mg capsule 50 mg PO DAILY 01/30/21 07/19/21 Unknown History Exam Airway Mallampati Class: II TM Dist: >3cm Neck ROM: Full Loose/Missing/Broken Teeth: Yes Assessment and Plan Final Anesthetic Review Family History of Problems with Anesthesia: No History of Problems with Anesthesia: No NPO: Yes ASA Class: II Final Preanesthetic Review: No Changes in Pt Med Stat, Meds/Allgs Chart Reviewed, Consent Obtained/Reviewed and Anes Risks/Benef Reviewed Patient Risk: Low Procedure Risk: Low Anesthetic Plan Anesthetic Plan: MAC: Disposition: Standard PACU
[2021-08-28 06:45] VITALS: BMI 27.8
[2021-08-28 07:02] VITALS: BP 147/87; PULSE 95; RESP 16; TEMP 36.9; O2SAT 98
[2021-08-28 07:08] LABS: Glucose, Whole Blood 182 mg/dL (60-115)
[2021-08-28] MEDS: Lactated Ringers 1,000 ML 100 ML IVCONT (07:20)
--- NOTE | 2021-08-28 07:25 | MHC.SHP ---
Pre-Procedural Eval Section A Date of Service: 08/28/21 The patient is an INPATIENT: No The History & Physical has been completed within 30 days and I have reviewed it.: No Section B Chief Complaint: Hx of Colon Polyps Details of Present Illness: Colon cancer screening, history of colon polyps Relevant Family History (Specify if Yes): No Relevant Social History: None Present Medications: see Short Stay Collaborative assessment Medical History: Significant History (Anemia Diabetes Diverticula of colon Essential hypertension H/O malignant neoplasm of small intestine Hypertension Kidney mass Renal cell carcinoma of right kidney Type 2 diabetes mellitus with unspecified complications) History of Previous Operations: Relevant previous surgery/procedure and date(s) (H/O sinus surgery History of esophagogastroduodenoscopy (EGD) Hx of kidney removal) Allergies: Allergies Allergy/AdvReac Type Severity Reaction Status Date / Time No Known Allergies Allergy Verified 08/28/21 07:19 [No Known Allergies*] Review of Systems Sugical H&P ROS: Negative: Constitution, Cardiovascular, Respiratory and Gastrointestinal Exam Surgical H&P Exam: Normal: Heart, Normal: Lungs, Normal: Extremities and Normal: Abdomen Plan Diagnosis/Plan: Unchanged I have reviewed the history and physical and performed a pertinent physical examination on my patient. No changes have occurred unless specified.
--- NOTE | 2021-08-28 07:29 | P.OP_ITS ---
Operative Note Operative Note Date of Service: 08/28/21 Narrative: Pre-op diagnosis: Colon cancer screening, history of colon polyps Post-op diagnosis:?other (Diverticulosis, hemorrhoids) Procedure: COLONOSCOPY TILL CECUM Consent: Indications for the procedure and potential complications of bleeding, perforation, reaction to medications and missed diagnosis were discussed with the patient and informed consent was obtained. Instrument: Olympus CF H 190 L variable stiffness adult colonoscope Monitoring: Vital signs and clinical assessment, intermittent blood pressure monitoring, continuous EKG monitoring, Pulse oximetry and Carbon Dioxide monitoring were done throughout the procedure. Colon withdrawl time was 20 minutes. Procedure: The patient was placed in the left lateral decubitis position and pre-procedure medications were administered. After a digital rectal examination of the ano-rectum, the video colonoscope was inserted into the rectum and advanced through the colon to the cecum. The colonoscope was slowly withdrawn in a retrograde panoramic fashion and the colon mucosa was carefully examined including a retroflexed view of the rectum. Findings and interventions are described below. Procedure Difficulty:? Colon was long and tortuous and there was recurrent formation.? Patient was placed in the supine position and LLQ pressure was applied to intubate the transverse colon. Findings: Terminal Ileum: Not evaluated Cecum:? Normal - no recurrent polyp was seen Ascending Colon:? Moderate diverticulosis throughout the colon Transverse Colon:? Moderate diverticulosis throughout the colon Descending Colon:? Moderate diverticulosis throughout the colon Sigmoid Colon:? Moderate diverticulosis Rectum:? Normal Ano-rectum:? Moderate internal hemorrhoids Colon preparation:? Good after copious irrigation and fair in some areas of the colon Impression and Post Procedure Diagnosis: Colonoscopy Findings: No polyps were detected No recurrent polyp was seen Moderate diverticulosis seen in the entire colon Moderate hemorrhoids on retroflexed exam. Plan: Await pathology results Patient has an appointment on 09/27/21 in the [facility] with Zhou Mitchell M.D. Repeat Colonoscopy in 3 years due to fair prep in some areas of the colon and a hx of adenomatous colon polyps. Above findings were reviewed with the patient and? diverticulosis handout was given in the discharge area Surgeon: Zhou Mitchell MD Anesthesia:?MAC (Dr Reardon) Was an Head Inspector And Center Marker used for this Procedure?:?Yes Head Inspector And Center Marker:?Sylvia Polk Estimated blood loss (mL):?0 Pathology:?none sent Condition:?stable Disposition:?PACU
[2021-08-28 08:42] VITALS: BP 107/68; PULSE 73; RESP 16; TEMP 36.1; O2SAT 97
[2021-08-28 08:57] VITALS: BP 126/75; PULSE 83; RESP 16; TEMP 36.1; O2SAT 98
== END 2021-08-28 09:31 | disposition home or self-care (01) ==
PROVIDERS: PCP Internal Medicine; Visit Provider Internal Medicine Gastroenterology
PROC: 0DJD8ZZ Inspection of Lower Intestinal Tract, Via Natural or Artificial Opening Endoscopic (ICD-10-PCS; CPT 45378; principal; 2021-08-28 07:30)
DX: Z12.11 Encounter for screening for malignant neoplasm of colon (principal); Z86.010 Personal history of colon polyps; K57.30 Diverticulosis of large intestine without perforation or abscess without bleeding; K64.8 Other hemorrhoids; I10 Essential (primary) hypertension; E11.9 Type 2 diabetes mellitus without complications; Z79.84 Long term (current) use of oral hypoglycemic drugs; Z79.899 Other long term (current) drug therapy; Z85.528 Personal history of other malignant neoplasm of kidney; Z85.068 Personal history of other malignant neoplasm of small intestine; Z87.891 Personal history of nicotine dependence
CPT/HCPCS: 45378; 82947

== ENCOUNTER → 2021-10-08 07:27 | Outpatient (BNVA) | payer OTHER, SELFPAY | PROVIDERS: PCP Internal Medicine; Referring Provider Internal Medicine; Visit Provider Internal Medicine Gastroenterology | DX: Z85.068 Personal history of other malignant neoplasm of small intestine (principal); Z86.010 Personal history of colon polyps; Z92.21 Personal history of antineoplastic chemotherapy | CPT/HCPCS: 99212 ==

== ENCOUNTER 2021-12-05 08:05 | Outpatient (REF) | payer OTHER, SELFPAY ==
--- NOTE | ~2021-12-05 | CT_ITS ---
EXAMINATION: CT CHEST, ABDOMEN AND PELVIS WITH CONTRAST CLINICAL INFORMATION: Surveillance. Small bowel malignancy. COMPARISON: 07/19/2021 and 12/15/2020 and studies dating back to 02/17/2020. TECHNIQUE: Multidetector volumetric imaging was performed from the thoracic inlet through the pubic symphysis following administration of oral and intravenous contrast of 100 mL Ultravist-300 intravenous contrast. Sagittal and coronal reformatted images were obtained on the technologist workstation. This CT examination was performed using dose optimization techniques as appropriate, variously including the following: *Automated exposure control *Adjustment of mA and/or kV according to patient size (this includes techniques or standardized protocols for targeted exams where dose is matched to indication/reason for exam; i.e. extremities or head) *Use of iterative reconstruction technique DLP: 682 mGy-cm for abdomen and pelvis and 172 mGy-cm for chest. FINDINGS: CHEST: Lungs: Central airways are patent. No confluent parenchymal disease. There is mild bronchial wall thickening. No bronchiectasis. No significant changes of emphysema seen. No suspicious lung nodules. Mediastinum: Visualized thyroid gland unremarkable. No thoracic aortic aneurysm. Mild nonocclusive calcified plaque within aortic arch. No mediastinal or hilar lymphadenopathy. Minimal calcified plaque within the aortic valve. Heart normal size. Pericardium/Pleura: There is no significant effusion. No pleural mass or thickening. Chest Wall/Axilla: Unremarkable. ABDOMEN/PELVIS: Liver, Gallbladder, Biliary Tree: The liver is normal in size, shape, and attenuation. No focal hepatic lesion or biliary ductal dilatation is present. The gallbladder is unremarkable with no evidence of radiopaque gallstones, gallbladder wall thickening, or pericholecystic inflammatory changes. Pancreas: Unremarkable. No abnormal mass or peripancreatic inflammatory change. Spleen: Unremarkable. Adrenal Glands: Prominent and stable. No focal mass. Kidneys and Ureters: There has been surgery about the upper pole of the right kidney. There is perinephric stranding seen bilaterally. No hydronephrosis is seen. There are a few low-density lesions seen involving the left kidney with densities of cysts. There is an approximately 2 cm cyst in the lower pole of the left kidney and a 2.4 cm cyst within the upper pole. No renal calculi are appreciated. Ureters appear unremarkable. Bladder: No suspicious masses identified. Prostatic mass impression about the inferior posterior aspect. Bladder wall thickening; however, this may be related to its decompressed state. Gastrointestinal Tract: No free air or free fluid is appreciated. No dilated loops of large or small bowel. Status post small-bowel surgery. No adjacent mass is identified. There is colonic diverticulosis without evidence of acute diverticulitis. No pericolonic inflammatory change. Appendix is visualized and appears unremarkable. Abdominal Wall: No hernia is demonstrated. Lymph Nodes: No lymphadenopathy appreciated. Vascular: Unremarkable. Pelvic Viscera: No significant abnormality appreciated. Osseous Structures: No acute fracture identified. No destructive bony lesions seen. There are noted to be scattered regions of diminished density within the skeleton which may be related to osteopenia. These are seen dating back to CT scan of 02/17/[address]/CT abdomen pelvis wo con IMPRESSION: Stable appearance of the chest, abdomen, and pelvis without new findings to suggest metastatic disease. Renal cysts. Low-density regions within the skeleton which are stable and without destructive findings. Postsurgical change small bowel without adjacent adenopathy or soft tissue abnormality.
[2021-12-05 08:54] LABS: MANUAL DIFF FLAG NO
[2021-12-05 09:37] LABS: Basophils Percent Auto 0.4 % (0-2); Eosinophils Absolute Auto 0.1 X10*3/uL (0.0-0.4); Eosinophils Percent Auto 0.9 % (0-4); Hematocrit 43.4 % (42.0-52.0); Hemoglobin 14.9 g/dl (14.0-18.0); Imm Gran Abs Auto 0.02 X10*3/uL (0.00-0.03); Imm Gran Pct Auto 0.2 % (0.0-0.4); Lymphocytes Absolute Auto 2.4 X10*3/uL (1.2-4.9); Lymphocytes Percent Auto 23.2 % (20-40); Mean Corpuscular HGB Conc 34.3 g/dl (31.0-36.0); Mean Corpuscular Hemoglobin 30.5 pg (27.0-33.0); Mean Corpuscular Volume 88.8 fL (80.0-98.0); Mean Platelet Volume 9.6 fL (9.4-12.4); Monocytes Absolute Auto 0.7 X10*3/uL (0.1-1.2); Monocytes Percent Auto 7.2 % (2-11); Neutrophils Absolute Auto 6.9 x10*3/uL (2.0-8.3); Neutrophils Percent Auto 68.1 % (45-73); Platelet Count 276 X10*3/uL (160-400); Red Blood Count 4.89 X10*6/uL (4.60-5.80); Red Cell Distribution Width 12.4 % (11.0-16.0); White Blood Count 10.2 X10*3/uL (4.8-10.8)
[2021-12-05 09:40] LABS: Appearance Urine CLEAR; Color Urine YELLOW; Glucose Urine UA NEG (NEG); Leukocyte Esterase Urine NEG (NEG); Nitrite Urine NEG (NEG); Specific Gravity - Urine >= 1.030 (1.005-1.025); Urine Blood NEG (NEG); Urine Ketones NEG (NEG); Urine Protein NEG (NEG-TRACE)
[2021-12-05 10:18] LABS: Creatinine Urine 287.43 mg/dL; Microalbum/Creatinine Ratio Ur 3.4 ug/mg cr
[2021-12-05 10:23] LABS: Estimated Average Glucose 143 mg/dL; Hemoglobin A1c % 6.6 %
[2021-12-05 10:31] LABS: Alanine Aminotransferase 24 U/L (0-40); Albumin Level 4.3 g/dL (3.5-5.0); Alkaline Phosphatase 75 U/L (39-117); Anion Gap 12 (12-20); Aspartate Amino Transferase 20 U/L (5-37); Bilirubin Total 0.6 mg/dL (0.0-1.0); Blood Urea Nitrogen 17 mg/dL (9-16); Calcium 10.2 mg/dL (8.4-10.2); Carbon Dioxide 28 mmol/L (22-29); Chloride 103 mmol/L (96-108); Cholesterol 178 mg/dL; Estimated Glomerular Filt Rate 51; Glucose Fasting 143 mg/dL (60-99); HDL Cholesterol 47 mg/dL; LDL Cholesterol Calculated 97 mg/dl; Potassium 4.1 mmol/L (3.3-5.1); Sodium 139 mmol/L (135-145); Total Protein 7.6 g/dL (6.5-8.0); Triglycerides 173 mg/dL
[2021-12-05 10:36] LABS: Syphilis Screen Nonreactive (Nonreactive)
[2021-12-05 10:38] LABS: TSH reflex Free T4 1.75 uIU/mL (0.32-4.0); Vitamin D 25-OH Total 27.2 ng/mL (>30)
[2021-12-05 11:08] LABS: Folate 11.4 ng/mL (> or = 4.0); Vitamin B12 334 pg/mL (200-900)
== END 2021-12-05 08:06 | disposition home or self-care (01) ==
LOC: HO.CT 08:05
PROVIDERS: Absent Provider Internal Medicine; PCP Internal Medicine; Visit Provider Internal Medicine
DX: C17.9 Malignant neoplasm of small intestine, unspecified (principal); E55.9 Vitamin D deficiency, unspecified; R41.3 Other amnesia; I10 Essential (primary) hypertension; E11.9 Type 2 diabetes mellitus without complications; E78.00 Pure hypercholesterolemia, unspecified; E53.8 Deficiency of other specified B group vitamins
CPT/HCPCS: 36415; 71250; 74176; 80053; 80061; 81003; 82043; 82306; 82607; 82746; 83036; 84443; 85025; 86780

== ENCOUNTER → 2022-04-11 08:01 | Outpatient (BNVA) | payer MEDICARE, MEDICAID, SELFPAY | PROVIDERS: PCP Internal Medicine; Referring Provider Internal Medicine; Visit Provider Internal Medicine Gastroenterology | DX: C17.9 Malignant neoplasm of small intestine, unspecified (principal); E55.9 Vitamin D deficiency, unspecified; Z86.010 Personal history of colon polyps; Z85.068 Personal history of other malignant neoplasm of small intestine | CPT/HCPCS: 99212 ==

== ENCOUNTER 2022-05-15 08:57 | Outpatient (REF) | payer MEDICARE, MEDICAID, SELFPAY ==
[2022-05-15 10:52] LABS: PSA,Total (Free>4and<10) 1.85 ng/mL (0.00-4.00)
== END 2022-05-15 08:58 | disposition home or self-care (01) ==
LOC: HO.LAB 08:57
PROVIDERS: PCP Internal Medicine; Visit Provider Nurse Practitioner Family
DX: C17.9 Malignant neoplasm of small intestine, unspecified (principal); Z12.5 Encounter for screening for malignant neoplasm of prostate
CPT/HCPCS: 36415; 84153

== ENCOUNTER 2022-05-27 07:45 | Outpatient (REF) | payer MEDICARE, MEDICAID, SELFPAY ==
--- NOTE | ~2022-05-27 | CT_ITS ---
EXAMINATION: CT ABDOMEN AND PELVIS WITH CONTRAST CLINICAL INFORMATION: Kidney and small bowel cancer COMPARISON: Previous CT scans most recent December 2021 TECHNIQUE: Multidetector volumetric images were obtained from the superior aspect of the liver through the pubic symphysis following administration 85 mL of Omnipaque 350 intravenous contrast. Sagittal and coronal reformatted images were obtained on the technologist's workstation. Oral contrast: Yes This CT examination was performed using dose optimization techniques as appropriate, variously including the following: *Automated exposure control *Adjustment of mA and/or kV according to patient size (this includes techniques or standardized protocols for targeted exams where dose is matched to indication/reason for exam; i.e. extremities or head) *Use of iterative reconstruction technique DLP: 525 mGy-cm FINDINGS: LUNG BASES: The visualized lung bases are unremarkable. LIVER, GALLBLADDER, AND BILIARY TREE: The liver is normal in size, shape, and attenuation. No focal hepatic lesion or biliary ductal dilatation is present. The gallbladder is unremarkable with no evidence of radiopaque gallstones, gallbladder wall thickening, or obvious pericholecystic inflammatory changes. PANCREAS: Unremarkable. SPLEEN: Unremarkable. ADRENAL GLANDS: Unremarkable. KIDNEYS AND URETERS: There are stable postsurgical changes to the upper pole of the right kidney with renal cortical thinning and some decreased attenuation. No definite residual right renal mass is seen. There are small bilateral low-attenuation renal lesions probably representing cysts. The largest measures 2 cm in the lower pole of the left kidney. BLADDER: Unremarkable. GASTROINTESTINAL TRACT: There is diverticulosis of the colon. No evidence of diverticulitis. Postsurgical changes to the small bowel in the right lower quadrant. There is mild small bowel dilatation the surgical staple line. No small bowel mass or abnormal wall thickening. The appendix is normal. The stomach is normal. ABDOMINAL WALL: Small umbilical hernia containing fat and very small ventral hernia containing transverse colon. LYMPH NODES: Normal. VASCULAR: Unremarkable. PELVIC VISCERA: Unremarkable. OSSEOUS STRUCTURES: Degenerative changes of the spine and hip joints. CT/CT abdomen pelvis w IV con IMPRESSION: Stable postsurgical changes to the upper pole of the right kidney. Bilateral renal cysts. Stable postsurgical changes to the small bowel. No small bowel wall thickening or mass. Mild diverticulosis of the colon. Fleischner guidelines were followed.
--- NOTE | ~2022-05-27 | XR_ITS ---
EXAMINATION: XR CHEST CLINICAL INFORMATION: Surveillance. History of kidney and small bowel cancer COMPARISON: Previous chest CT most recent December 2021 and chest x-ray September 2020 TECHNIQUE: 2 views of the chest were obtained. FINDINGS: The cardiac and mediastinal contours are stable. The lungs are clear. There is no pleural effusion or pneumothorax. There are mild degenerative changes of the spine. XR/XR chest 2V IMPRESSION: No evidence for acute disease in the chest.
[2022-05-27] MEDS: Barium Sulfate Oral (Berry) 450 ML ORAL.SUSP 900 ML PO (10:02)
[2022-05-27] MEDS: iohexoL 350 MG/ML 100 ML INFUS..BTL 85 ML IV (10:14)
== END 2022-05-27 07:46 | disposition home or self-care (01) ==
LOC: HO.CT 07:45
PROVIDERS: Visit Provider Internal Medicine Medical Oncology
DX: C17.9 Malignant neoplasm of small intestine, unspecified (principal); C64.1 Malignant neoplasm of right kidney, except renal pelvis
CPT/HCPCS: 71046; 74177; Q9967

== ENCOUNTER 2022-09-12 09:44 | Outpatient (REF) | payer OTHER, SELFPAY ==
[2022-09-12 09:59] LABS: MANUAL DIFF FLAG NO
[2022-09-12 10:28] LABS: Basophils Absolute Auto 0.1 X10*3/uL (0.0-0.2); Basophils Percent Auto 0.5 % (0-2); Eosinophils Absolute Auto 0.1 X10*3/uL (0.0-0.4); Eosinophils Percent Auto 1.1 % (0-4); Hematocrit 45.6 % (42.0-52.0); Hemoglobin 16.1 g/dl (14.0-18.0); Imm Gran Abs Auto 0.03 X10*3/uL (0.00-0.03); Imm Gran Pct Auto 0.3 % (0.0-0.4); Lymphocytes Absolute Auto 2.3 X10*3/uL (1.2-4.9); Lymphocytes Percent Auto 24.7 % (20-40); Mean Corpuscular HGB Conc 35.3 g/dl (31.0-36.0); Mean Corpuscular Hemoglobin 30.7 pg (27.0-33.0); Mean Platelet Volume 9.8 fL (9.4-12.4); Monocytes Absolute Auto 0.6 X10*3/uL (0.1-1.2); Monocytes Percent Auto 6.3 % (2-11); Neutrophils Absolute Auto 6.3 x10*3/uL (2.0-8.3); Neutrophils Percent Auto 67.1 % (45-73); Platelet Count 289 X10*3/uL (160-400); Red Blood Count 5.24 X10*6/uL (4.60-5.80); Red Cell Distribution Width 12.3 % (11.0-16.0); White Blood Count 9.5 X10*3/uL (4.8-10.8)
[2022-09-12 10:40] LABS: Appearance Urine Clear; Color Urine Yellow; Glucose Urine UA 100 mg/dL (Negative); Leukocyte Esterase Urine Negative (Negative); Nitrite Urine Negative (Negative); PH 6.5 (5.0-9.0); Specific Gravity - Urine 1.025 (1.005-1.025); UMIC TRIGGER UACC YES; Urine Blood Negative (Negative); Urine Ketones Negative (Negative); Urine Protein 30 (1+) mg/dL (Neg-Trace)
[2022-09-12 10:43] LABS: Bacteria Urine None Seen (None Seen); RBC Urine 0-2 /HPF (0-2); WBC Urine 0-5 /HPF (0-5)
[2022-09-12 11:02] LABS: Alanine Aminotransferase 25 U/L (0-40); Albumin Level 4.4 g/dL (3.5-5.0); Alkaline Phosphatase 71 U/L (39-117); Anion Gap 11 (12-20); Aspartate Amino Transferase 20 U/L (5-37); Blood Urea Nitrogen 19 mg/dL (9-16); Calcium 9.7 mg/dL (8.4-10.2); Carbon Dioxide 29 mmol/L (22-29); Chloride 104 mmol/L (96-108); Cholesterol 187 mg/dL; Estimated Glomerular Filt Rate 51; Glucose Fasting 174 mg/dL (60-99); HDL Cholesterol 45 mg/dL; LDL Cholesterol Calculated 121 mg/dl; Potassium 4.6 mmol/L (3.3-5.1); Sodium 139 mmol/L (135-145); Total Protein 7.5 g/dL (6.5-8.0); Triglycerides 108 mg/dL
[2022-09-12 11:23] LABS: TSH reflex Free T4 1.03 uIU/mL (0.32-4.0); Vitamin D 25-OH Total 35.5 ng/mL (>30)
[2022-09-12 11:29] LABS: Estimated Average Glucose 183 mg/dL
[2022-09-12 12:11] LABS: Folate 10.6 ng/mL (> or = 4.0); Vitamin B12 430 pg/mL (200-900)
[2022-09-12 12:52] LABS: Creatinine Urine 214.77 mg/dL; Microalbum/Creatinine Ratio Ur 6.5 ug/mg cr
== END 2022-09-12 09:45 | disposition home or self-care (01) ==
LOC: HO.LAB 09:44
PROVIDERS: PCP Internal Medicine; Visit Provider Internal Medicine
DX: I10 Essential (primary) hypertension (principal); R30.0 Dysuria; E55.9 Vitamin D deficiency, unspecified; E53.8 Deficiency of other specified B group vitamins; E78.00 Pure hypercholesterolemia, unspecified; E11.9 Type 2 diabetes mellitus without complications
CPT/HCPCS: 36415; 80053; 80061; 81001; 82043; 82306; 82607; 82746; 83036; 84443; 85025

== ENCOUNTER 2022-09-16 15:14 | Outpatient (AMB) | payer OTHER, SELFPAY ==
[2022-09-16 15:17] VITALS: BP 140/100; PULSE 84; TEMP 36.1; O2SAT 98; BMI 31.1
--- NOTE | 2022-09-16 15:17 | MHC.PC.OV ---
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 Accompanied by: Self / Same As Patient Allergies No Known Allergies [No Known Allergies*] Allergy (Verified 04/10/23 08:06) Medication List - Last Reconciled 09/16/22 by Yuri Wilkes MD blood-glucose meter,continuous (Dex[employer] G6 [employer]) As directed blood-glucose sensor (Dexcom G6 Sensor device) As directed blood-glucose transmitter (Dexcom G6 Transmitter device) As directed cholecalciferol (vitamin D3) 250 mcg PO 2XW 90 days donepezil 10 mg PO BEDTIME 90 days hydrochlorothiazide 12.5 mg PO DAILY 90 days losartan 100 mg PO DAILY 90 days metformin 1,000 mg PO DAILY polyethylene glycol 3350 (Miralax) 17 grams PO DAILY 30 days sertraline 25 mg PO DAILY Tobacco use date assessed: 09/16/22 Fall risk assessment: No Falls in past year Last assessed Fall Risk: 09/16/22 HPI 3mth f/u HPI Details Patient comes in today for his follow up visit States that he has been experiencing on and off mid-abdominal pain for the past 1 day Notes that his current mid-abdominal pain feels slightly worse when he eats or drinks something; he denies any nausea or vomiting (+) 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 Mitchell for his constipation - states that the medication has been helping him He denies any headaches or dizziness Denies any chest pains, no shortness of breath Had his follow up labs done a few days ago - to discuss his results Patient was seen by neurology a couple of months ago and started on Sertraline 25 mg QD for depression Was diagnosed with MCI and depression following his bout of cancer [facility] Medical History (Updated 04/15/23 @ 04:44 by Yuri Wilkes MD) Depression Vitamin D deficiency Memory impairment Renal cell carcinoma of right kidney Essential hypertension Type 2 diabetes mellitus with unspecified complications H/O malignant neoplasm of small intestine Diverticula of colon Kidney mass Anemia Diabetes Hypertension Surgical History Hx of colonoscopy Hx of kidney removal History of esophagogastroduodenoscopy (EGD) H/O sinus surgery Family History Father No problems noted. Mother Heart disease Pancreas cancer Maternal Grandmother Stomach cancer Social History Household Members: Spouse Housing: Apartment Are you a primary career portals teacher to a significant other at home: No Do you presently have visiting nurse or other home services: No Alcohol intake: former Patient Tobacco Use Status: Former Tobacco user Tobacco use type: Cigar e-Cigarette/Vaping Use: Never Used Second Hand Smoke Exposure: No service: No Current occupational status: retired Cognitive needs: No Hearing needs: No Vision needs: Yes (glasses) Questionnaire PHQ-9 Over the last 2 weeks, how often have you been bothered by any of the following problems? 1. Little interest or pleasure in doing things: not at all 2. Feeling down, depressed, or hopeless: not at all 3. Trouble falling or staying asleep, or sleeping too much: not at all 4. Feeling tired or having little energy: not at all 5. Poor appetite or overeating: not at all 6. Feeling bad about yourself - or that you are a failure or have let yourself or your family down: not at all 7. Trouble concentrating on things, such as reading the newspaper or watching television: not at all 8. Moving or speaking so slowly that other people could have noticed. Or the opposite - being so fidgety or restless that you have been moving around a lot more than usual: not at all 9. Thoughts that you would be better off or of hurting yourself in some way: not at all Total score: 0 Depression Screening Interpretation: Negative 18173 - PHQ-9 Billing: Yes Source: Developed by Drs. Ashkan Henning, Heena Raphael, Rafiq Cristina and colleagues, with an educational edwige from [employer]. Thrive Questionnaire Date Thrive assessed: 09/16/22 I am a: Patient What is your living situation today?: I have a steady place to live Within the past 12 months, did the food you bought not last and you didn't have the money to get more?: Never true Within the past 12 months, did you worry whether your food would run out before you got money to buy more?: Never true Do you have trouble paying for medicines?: No Do you have trouble getting transportation to medical appointments?: No Do you have trouble paying your heating and electricity bill?: No Do you have trouble taking care of your child, family member or friend?: No Do you have trouble with day-to-day activities such as bathing, preparing meals, shopping, managing finances, etc.?: No Are you currently unemployed and looking for a job?: No Are you interested in more education?: No Currently or been in a relationship where the following occur: no concerns reported AUDIT C Alcohol Use Questionnaire (AUDIT-C) 1. How often do you have a drink containing alcohol?: Never 3. How often do you have six or more drinks on one occasion?: Never Total Score: 0 Score Reviewed/Action Taken: Yes LAURA-7 AMB Questionnaire LAURA-7 Date LAURA - 7 assessed: 09/16/22 Feeling nervous, anxious, or on edge: 0 = Not at all Not being able to stop or control worryin = Not at all Worrying too much about different things: 0 = Not at all Trouble relaxin = Not at all Being so restless that it is hard to sit still: 0 = Not at all Becoming easily annoyed or irritable: 0 = Not at all Feeling afraid as if something awful might happen: 0 = Not at all Total LAURA-7 score (0-4 normal; 5-9 mild; 10-14 moderate; 15-21 severe): 0 Source: Developed by Drs. Ashkan Henning, Heena Raphael, Rafiq Cristina and colleagues, with an educational edwige from [employer]. Review of Systems Const Denies chills, Denies fatigue, Denies fever(s) and Denies headache(s) ENT Denies dysphagia, Denies dizziness, Denies otalgia, Denies headache(s), Denies odynophagia and Denies sore throat Card Denies chest pain, Denies palpitations and Denies dyspnea Resp Denies cough and Denies dyspnea GI Reports abdominal pain (mid abdominal - worse when eating or drinking), Reports constipation (better controlled on Rx), Denies dysphagia, Denies heartburn, Denies diarrhea, Denies nausea, Denies odynophagia and Denies vomiting Denies dysuria, Denies nocturia and Denies urinary frequency Neuro Reports confusion (on and off), Denies dizziness, Denies headache(s) and Reports memory loss (increasing) Psych Reports confusion (on and off) and Reports memory loss (increasing) Endo Denies fatigue and Denies palpitations Physical exam (Primary Care) Vital Signs: Last Vital Signs Temp 96.9 F 09/16/22 15:17 Pulse 84 09/16/22 15:17 BP 140/100 H 09/16/22 15:17 Pulse Ox 98 09/16/22 15:17 Oxygen Delivery Method Room Air 09/16/22 15:17 BMI result Body Mass Index 31.1 Tobacco/Smoking Status: Tobacco use Status Tobacco use date assessed 09/16/22 09/16/22 15:28 Patient Tobacco Use Status Former Tobacco user 09/16/22 15:28 Tobacco use type Cigar 09/16/22 15:28 e-Cigarette/Vaping Use Never Used 09/16/22 15:28 PHQ-9: PHQ-9 Score PHQ-9: Total score 0 04/15/23 04:03 Depression Screening Interpretation: Negative Thrive Assessment: Date of Thrive Assessment Date Thrive assessed 09/16/22 09/16/22 15:28 Currently or been in a relationship where the following occur: no concerns reported Const General: no acute distress, alert and confusion (on and off) Orientation/consciousness: confusion (on and off) HENMT Ears: TM's normal bilaterally and EAC's normal Throat: Yes posterior oropharynx normal and Yes tonsils normal (no TP congestion) Neck Neck: Yes no lymphadenopathy and Yes supple Resp Auscultation: clear to auscultation bilaterally, no rales and no wheezes Cardio Rate: regular rate Rhythm: regular rhythm Heart sounds: no murmurs GI Palpation (GI): Soft to palpation, Tenderness to palpation present (GI) (mid-abdominal/periumbilical and epigastric), no guarding, not rigid and No Rebound tenderness present Skin Rashes: no rashes Neuro General: confusion (on and off) Extrem General: Yes no clubbing, cyanosis or edema Results Reviewed Results Reviewed: Laboratory Tests 09/12/22 09/12/22 09/12/22 09:53 09:53 09:58 WBC 9.5 Hgb 16.1 Hct 45.6 Plt Count 289 Sodium Potassium Creatinine Estimated GFR Fasting Glucose Hemoglobin A1c % Calcium AST ALT Triglycerides Cholesterol LDL Cholesterol, Calc HDL Cholesterol Vitamin B12 25-OH Vitamin D Total Folate TSH Ur Specific [place] 1.025 Urine Protein 30 (1+) H Urine Glucose (UA) 100 H Urine Blood Negative Microalb/Creat Ratio 6.5 09/12/22 09/12/22 09:58 09:58 WBC Hgb Hct Plt Count Sodium 139 Potassium 4.6 Creatinine 1.39 Estimated GFR 51 Fasting Glucose 174 H Hemoglobin A1c % 8.0 Calcium 9.7 D AST 20 ALT 25 Triglycerides 108 Cholesterol 187 LDL Cholesterol, Calc 121 HDL Cholesterol 45 Vitamin B12 430 25-OH Vitamin D Total 35.5 Folate 10.6 TSH 1.03 Ur Specific [place] Urine Protein Urine Glucose (UA) Urine Blood Microalb/Creat Ratio Assessment and Plan Assessment & Plan (1) Memory impairment: Code(s): R41.3 - Other amnesia Plan: (+) Alzheimer's dementia He was referred to and was seen by neurology a couple of months ago CT head done in 2020 revealed (+) mild to moderate frontoparietal cortical atrophy Will increase his Donepezil to 10 mg QD but advised patient's family that the medication will likely not help much due to his advancing dementia (2) Type 2 diabetes mellitus with unspecified complications: Code(s): E11.8 - Type 2 diabetes mellitus with unspecified complications Plan: HgbA1c was at 8.0% (increased from previous) on his labs done a few days ago (in-office HgbA1c was at 6.7% a few months ago) - goal is at least < 7.0% Reinforced diabetic diet - have advised his family to help him with this and take charge of his diet Continue Metformin 1000 mg QD for now (3) Essential hypertension: Code(s): I10 - Essential (primary) hypertension Plan: Reinforced low sodium diet - goal is systolic BP of at least 130 mm or less Continue Losartan 100 mg QD and HCTZ 12.5 mg QD; used to take Amlodipine 2.5 mg QD as well but this was discontinued a few weeks ago (4) Renal cell carcinoma of right kidney: Comment: Clear cell carcinoma, pathological staging pT1a pNx Code(s): C64.1 - Malignant neoplasm of right kidney, except renal pelvis Plan: S/P partial nephrectomy on 12/27/2020 - tumor was limited to the kidney, with nosarcomatoid features, no tumor necrosis or lymphovascular invasion and margins are negative Follow up with urology as scheduled for continuing surveillance (5) 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, AJCC stage III S/P small bowel resection (distal jejunum, proximal ileum and mesentery) and primary small bowel anastomosis on 02/23/2020 Completed adjuvant chemotherapy with modified FOLFOX regimen from 03/2020 to September 2020 Code(s): Z85.068 - Personal history of other malignant neoplasm of small intestine Plan: Follow up with oncology and GI as scheduled for continuing follow-up and surveillance (6) Vitamin D deficiency: Code(s): E55.9 - Vitamin D deficiency, unspecified Plan: Continue Vitamin D3 250 mcg 2 times a week Will recheck his Vitamin D level in 3 months for follow up (7) Depression: Code(s): F32.A - Depression, unspecified Qualifiers: Depression Type: major depressive disorder Major depression recurrence: recurrent Active/Remission status: currently active Major depression episode severity: unspecified Qualified Code(s): F33.9 - Major depressive disorder, recurrent, unspecified Plan: Patient was diagnosed with depression as well by neurology a couple of months ago and started on Sertraline 25 mg QD - to continue on Rx Plan Follow up in 3 months Orders: Orders Comprehensive [place]. Panel Fast 3 Months E78.00 - Pure hypercholesterolemia, unspecified Complete Blood Count Auto Diff 3 Months I10 - Essential (primary) hypertension Lipid Panel 3 Months E78.00 - Pure hypercholesterolemia, unspecified Hemoglobin A1c 3 Months E11.9 - Type 2 diabetes mellitus without complications Medications: New sertraline 25 mg PO DAILY Changed From donepezil 5 mg PO BEDTIME 30 days 30 tabs 0RF To donepezil 10 mg PO BEDTIME 90 tabs 3RF 90 days Coding Level of Care Code Est Pt Level 4 (72267) Diagnoses Memory impairment R41.3 Type 2 diabetes mellitus with unspecified complications E11.8 Essential hypertension I10 Renal cell carcinoma of right kidney C64.1 H/O malignant neoplasm of small intestine Z85.068 Vitamin D deficiency E55.9 Episode of recurrent major depressive disorder, unspecified depression episode severity F33.9 Depression Type: major depressive disorder Major depression recurrence: recurrent Active/Remission status: currently active Major depression episode severity: unspecified
== END 2022-09-16 16:33 | disposition home or self-care (01) ==
LOC: HO.HMGH 15:14
PROVIDERS: PCP Internal Medicine; Visit Provider Internal Medicine
DX: R41.3 Other amnesia (principal); E11.8 Type 2 diabetes mellitus with unspecified complications; C64.1 Malignant neoplasm of right kidney, except renal pelvis; F33.9 Major depressive disorder, recurrent, unspecified; I10 Essential (primary) hypertension; Z85.068 Personal history of other malignant neoplasm of small intestine; E55.9 Vitamin D deficiency, unspecified
CPT/HCPCS: 99214

== ENCOUNTER → 2022-10-10 07:47 | Outpatient (BNVA) | payer OTHER, SELFPAY | PROVIDERS: PCP Internal Medicine; Referring Provider Internal Medicine; Visit Provider Internal Medicine Gastroenterology | DX: E55.9 Vitamin D deficiency, unspecified (principal); C17.9 Malignant neoplasm of small intestine, unspecified; Z86.010 Personal history of colon polyps | CPT/HCPCS: 99212 ==

== ENCOUNTER 2022-11-27 11:07 | Outpatient (REF) | payer OTHER, SELFPAY ==
--- NOTE | ~2022-11-27 | CT_ITS ---
EXAMINATION: CT ABDOMEN AND PELVIS WITH CONTRAST CLINICAL INFORMATION: Small bowel adenocarcinoma and kidney cancer COMPARISON: Previous CT of the abdomen and pelvis most recent May 2022 TECHNIQUE: Multidetector volumetric images were obtained from the superior aspect of the liver through the pubic symphysis following administration 85 mL of Omnipaque 350 intravenous contrast. Sagittal and coronal reformatted images were obtained on the technologist's workstation. Oral contrast: Yes This CT examination was performed using dose optimization techniques as appropriate, variously including the following: *Automated exposure control *Adjustment of mA and/or kV according to patient size (this includes techniques or standardized protocols for targeted exams where dose is matched to indication/reason for exam; i.e. extremities or head) *Use of iterative reconstruction technique DLP: 685 mGy-cm FINDINGS: LUNG BASES: The visualized lung bases are unremarkable. LIVER, GALLBLADDER, AND BILIARY TREE: The liver is normal in size, shape, and attenuation. No focal hepatic lesion or biliary ductal dilatation is present. The gallbladder is unremarkable with no evidence of radiopaque gallstones, gallbladder wall thickening, or obvious pericholecystic inflammatory changes. PANCREAS: Unremarkable. SPLEEN: Unremarkable. ADRENAL GLANDS: Slight nodular contour to the left adrenal gland. This is stable. No focal adrenal lesion. KIDNEYS AND URETERS: Postsurgical changes to the upper pole of the right kidney with cortical thinning. Left renal cysts. Small 4 mm low-attenuation right renal lesions probably representing cysts as well. These are stable. The kidneys are otherwise normal. BLADDER: Unremarkable. GASTROINTESTINAL TRACT: Diverticulosis of the colon. Postsurgical changes to the small bowel. The appendix is normal. The stomach is normal. ABDOMINAL WALL: Postsurgical changes. Diastasis of the rectus muscles and small umbilical hernia containing fat. LYMPH NODES: Normal. VASCULAR: Unremarkable. PELVIC VISCERA: Unremarkable. OSSEOUS STRUCTURES: Degenerative changes of the spine. No suspicious bone lesion. CT/CT abdomen pelvis w IV con IMPRESSION: No evidence of metastatic or recurrent disease. Stable postsurgical changes to the upper pole of the right kidney and small bowel. Diverticulosis. Fleischner guidelines were followed.
--- NOTE | ~2022-11-27 | CT_ITS ---
EXAMINATION: CT CHEST WITH CONTRAST CLINICAL INFORMATION: Small bowel adenocarcinoma and kidney cancer COMPARISON: Previous chest x-ray May [address] December 2021 TECHNIQUE: Multidetector volumetric CT imaging of the chest was obtained after the administration of 85 mL of Omnipaque 350 intravenous contrast without immediate adverse reactions. Axial MIP volume rendering provided. Sagittal and coronal reformatted images were obtained. This CT examination was performed using dose optimization techniques as appropriate, variously including the following: *Automated exposure control *Adjustment of mA and/or kV according to patient size (this includes techniques or standardized protocols for targeted exams where dose is matched to indication/reason for exam; i.e. extremities or head) *Use of iterative reconstruction technique DLP: 221 mGy-cm FINDINGS: LUNGS: The lungs are clear with no evidence of inflammation or nodules. MEDIASTINUM: The mediastinum is normal. No coronary artery calcification. PLEURA: There is no pleural effusion. No pleural mass or thickening. AXILLA: No lymphadenopathy. UPPER ABDOMEN: See abdominal and pelvic CT from the same day OSSEOUS STRUCTURES: Mild degenerative changes of the spine. Heterogeneous lucencies in this urinoma manubrium. This nodule to prior exams probably is related to osteopenia. CT/CT chest w IV con IMPRESSION: Unremarkable examination. Fleischner guidelines were followed.
[2022-11-27] MEDS: iohexoL 350 MG/ML 100 ML INFUS..BTL IV (13:40)
[2022-11-28 06:55] LABS: Creatinine POC 1.3 mg/dL (0.5-1.4); GFR POC 60
== END 2022-11-27 11:08 | disposition home or self-care (01) ==
LOC: HO.CT 11:07
PROVIDERS: PCP Internal Medicine; Visit Provider Internal Medicine
DX: C17.9 Malignant neoplasm of small intestine, unspecified (principal)
CPT/HCPCS: 71260; 74177; 82565; Q9967

== ENCOUNTER 2022-12-19 06:38 | Outpatient (REF) | payer OTHER, SELFPAY ==
[2022-12-19 06:47] LABS: MANUAL DIFF FLAG NO
[2022-12-19 07:09] LABS: Basophils Percent Auto 0.4 % (0-2); Eosinophils Absolute Auto 0.1 X10*3/uL (0.0-0.4); Eosinophils Percent Auto 1.3 % (0-4); Hematocrit 45.7 % (42.0-52.0); Hemoglobin 15.5 g/dl (14.0-18.0); Imm Gran Abs Auto 0.02 X10*3/uL (0.00-0.03); Imm Gran Pct Auto 0.2 % (0.0-0.4); Lymphocytes Absolute Auto 3.1 X10*3/uL (1.2-4.9); Lymphocytes Percent Auto 31.9 % (20-40); Mean Corpuscular HGB Conc 33.9 g/dl (31.0-36.0); Mean Corpuscular Hemoglobin 29.8 pg (27.0-33.0); Mean Corpuscular Volume 87.9 fL (80.0-98.0); Mean Platelet Volume 9.4 fL (9.4-12.4); Monocytes Absolute Auto 0.7 X10*3/uL (0.1-1.2); Neutrophils Absolute Auto 5.8 x10*3/uL (2.0-8.3); Neutrophils Percent Auto 59.2 % (45-73); Platelet Count 263 X10*3/uL (160-400); Red Cell Distribution Width 12.5 % (11.0-16.0); White Blood Count 9.8 X10*3/uL (4.8-10.8)
[2022-12-19 09:02] LABS: Estimated Average Glucose 166 mg/dL; Hemoglobin A1c % 7.4 %
[2022-12-19 11:04] LABS: Alanine Aminotransferase 25 U/L (0-40); Albumin Level 4.3 g/dL (3.5-5.0); Alkaline Phosphatase 80 U/L (39-117); Anion Gap 14 (12-20); Aspartate Amino Transferase 17 U/L (5-37); Bilirubin Total 0.8 mg/dL (0.0-1.0); Blood Urea Nitrogen 24 mg/dL (9-16); Carbon Dioxide 28 mmol/L (22-29); Chloride 102 mmol/L (96-108); Cholesterol 192 mg/dL; Estimated Glomerular Filt Rate 50; Glucose Fasting 177 mg/dL (60-99); HDL Cholesterol 48 mg/dL; LDL Cholesterol Calculated 125 mg/dl; Potassium 3.9 mmol/L (3.3-5.1); Sodium 140 mmol/L (135-145); Total Protein 7.9 g/dL (6.5-8.0); Triglycerides 97 mg/dL
== END 2022-12-19 06:39 | disposition home or self-care (01) ==
LOC: HO.LAB 06:38
PROVIDERS: PCP Internal Medicine; Visit Provider Internal Medicine
DX: I10 Essential (primary) hypertension (principal); E11.9 Type 2 diabetes mellitus without complications; E78.00 Pure hypercholesterolemia, unspecified
CPT/HCPCS: 36415; 80053; 80061; 83036; 85025

== ENCOUNTER 2023-01-14 15:08 | Outpatient (AMB) | payer OTHER, SELFPAY ==
[2023-01-14 15:10] VITALS: BP 110/82; PULSE 55; O2SAT 97; BMI 30.6
--- NOTE | 2023-01-14 15:10 | MHC.PC.OV ---
Vital Signs 01/14/23 15:10 Height 5 ft 9 in Weight 207 lb BMI 30.6 BP 110/82 Blood Pressure Location Lt brachial Position Sitting Pulse 55 Pulse Source Pulse Oximeter Temp Source Skin Pulse Oximetry (%) 97 Oxygen Delivery Method Room Air Intake Visit Reasons: DM, hyperlipidemia Consultant Required: No Allergies No Known Allergies [No Known Allergies*] Allergy (Verified 01/14/23 15:22) Medication List - Last Reconciled 01/14/23 by AUGUSTIN Haque blood sugar diagnostic (ColosseoEASuch Ultra Test strips) As directed once a day blood-glucose meter (ColosseoEASuch Ultra2 Meter kit) As directed blood-glucose meter,continuous (DexNewman Infinite G6 Discharge Door Operator) As directed blood-glucose sensor (HypePoints G6 Sensor device) As directed blood-glucose transmitter (HypePoints G6 Transmitter device) As directed cholecalciferol (vitamin D3) 250 mcg PO 2XW 90 days donepezil 10 mg PO BEDTIME 90 days famotidine 20 mg PO BID 90 days hydrochlorothiazide 12.5 mg PO DAILY 90 days lancets ([employer] International UltraSoft Lancets) As directed once a day lancets As directed losartan 100 mg PO DAILY 90 days melatonin 3 mg PO BEDTIME PRN metformin 1,000 mg PO DAILY polyethylene glycol 3350 (Miralax) 17 grams PO DAILY 30 days sertraline 25 mg PO DAILY Tobacco use date assessed: 01/14/23 Fall risk assessment: No Falls in past year Last assessed Fall Risk: 01/14/23 HPI DM, hyperlipidemia HPI Details Patient is a 67-year-old male presents today for a routine follow-up. Patient of Dr. Wilkes. Medical history significant for diabetes type 2, hypertension, renal cell carcinoma right kidney - followed by kidney specialist at [facility] on yearly basis, history of malignant neoplasm of small intestine-followed by GI and Dr. Junior, memory impairment-on donepezil-was seen by Dr. Bradley-would like 2nd opinion and referral to [facility]. Patient's reports that patient started with memory issues after finishing chemotherapy 2 years ago. Patient has hard time sleeping at night, he has prescription for melatonin, did not start this yet. Patient denies shortness of breath or chest pain. Recent blood work results reviewed. [facility] Medical History Anemia Diabetes Diverticula of colon Essential hypertension H/O malignant neoplasm of small intestine Hypertension Kidney mass Memory impairment Renal cell carcinoma of right kidney Type 2 diabetes mellitus with unspecified complications Vitamin D deficiency Surgical History H/O sinus surgery History of esophagogastroduodenoscopy (EGD) Hx of colonoscopy Hx of kidney removal Family History Father No problems noted. Mother Heart disease Pancreas cancer Maternal Grandmother Stomach cancer Social History Household Members: Spouse Housing: Apartment Are you a primary career specialist to a significant other at home: No Do you presently have visiting nurse or other home services: No Alcohol intake: former Patient Tobacco Use Status: Former Tobacco user Tobacco use type: Cigar e-Cigarette/Vaping Use: Never Used Second Hand Smoke Exposure: No service: No Current occupational status: retired Cognitive needs: No Hearing needs: No Vision needs: Yes (glasses) Questionnaire Thrive Questionnaire Date Thrive assessed: 09/16/22 AUDIT C Alcohol Use Questionnaire (AUDIT-C) 1. How often do you have a drink containing alcohol?: Never 3. How often do you have six or more drinks on one occasion?: Never Total Score: 0 Score Reviewed/Action Taken: No LAURA-7 AMB Questionnaire LAURA-7 Date LAURA - 7 assessed: 09/16/22 Source: Developed by Drs. Ashkan Henning, Heena Raphael, Rafiq Cristina and colleagues, with an educational edwige from [employer]. Review of Systems Const Denies body aches, Denies chills, Denies fever(s) and Denies headache(s) Eyes Denies change in vision ENT Denies dizziness, Denies otalgia, Denies headache(s), Denies nasal discharge, Denies sinus pain and Denies sore throat Card Denies chest pain, Denies edema, Denies lightheadedness and Denies dyspnea Resp Denies cough and Denies dyspnea GI Denies abdominal pain Denies dysuria Musc Denies myalgias Skin/Breast Denies rash Neuro Denies dizziness and Denies headache(s) Physical exam (Primary Care) Vital Signs: Last Vital Signs Pulse 55 01/14/23 15:10 BP 110/82 01/14/23 15:10 Pulse Ox 97 01/14/23 15:10 Oxygen Delivery Method Room Air 01/14/23 15:10 BMI result Body Mass Index 30.6 Tobacco/Smoking Status: Tobacco use Status Tobacco use date assessed 01/14/23 01/14/23 15:11 Patient Tobacco Use Status Former Tobacco user 01/14/23 15:11 Tobacco use type Cigar 01/14/23 15:11 e-Cigarette/Vaping Use Never Used 01/14/23 15:11 Thrive Assessment: Date of Thrive Assessment Date Thrive assessed 09/16/22 01/14/23 15:11 Const General: cooperative and no acute distress Orientation/consciousness: oriented to person HENGA Head: Yes normocephalic and Yes atraumatic Mouth: oropharynx normal and moist mucous membranes Throat: Yes posterior oropharynx normal Eyes General: appearance normal, both eyes and all related structures Neck Neck: Yes normal visual inspection and Yes full ROM Resp Effort & Inspection: normal respiratory effort and able to speak in complete sentences Auscultation: clear to auscultation bilaterally, no crackles, no rales, no rhonchi and no wheezes Cardio Rate: regular rate Rhythm: regular rhythm Heart sounds: S1 normal heart sound present and S2 normal heart sound present GI Auscultation: normal bowel sounds Skin General skin exam: no rashes or lesions noted Neuro General: oriented to person Gait exam (Neuro): Normal gait present Extrem General: Yes full ROM and No edema Assessment and Plan Assessment & Plan (1) Memory impairment: Code(s): R41.3 - Other amnesia Plan: Neurology referral to [facility] for 2nd opinion per family request Continue donepezil 10 mg at bedtime (2) Essential hypertension: Code(s): I10 - Essential (primary) hypertension Plan: Goal BP equal or less than 140/90 Continue losartan and hydrochlorothiazide Low-sodium diet (3) Type 2 diabetes mellitus with unspecified complications: Code(s): E11.8 - Type 2 diabetes mellitus with unspecified complications Plan: A1c 7.4 12/2022, goal less than 7 Continue metformin Low-carbohydrate diet (4) Insomnia: Code(s): G47.00 - Insomnia, unspecified Plan: Start melatonin 3 mg at bedtime-patient has prescription, did not start medication yet Reinforced sleep hygiene (5) Hyperlipidemia: Code(s): E78.5 - Hyperlipidemia, unspecified Plan: LDL 125 12/2022, goal less than 100 Encouraged low-cholesterol diet Continue to monitor Plan Follow-up with PCP in 3 months or sooner as needed Orders: Orders Lipid Panel 3 Months E11.8 - Type 2 diabetes mellitus with unspecified complications Comprehensive [place]. Panel Fast 3 Months E11.8 - Type 2 diabetes mellitus with unspecified complications Hemoglobin A1c 3 Months E11.8 - Type 2 diabetes mellitus with unspecified complications Referrals Neurology Referral R41.3 - Other amnesia Medications: New lancets (OneTouch UltraSoft 2 Lancet) 2 x day 100 ea 3RF E11.8 - Type 2 diabetes mellitus with unspecified complications Coding Level of Care Code Est Pt Level 4 (93475) Diagnoses Memory impairment R41.3 Essential hypertension I10 Type 2 diabetes mellitus with unspecified complications E11.8 Insomnia G47.00 Hyperlipidemia E78.5
== END 2023-01-14 15:46 | disposition home or self-care (01) ==
PROVIDERS: PCP Internal Medicine; Visit Provider Nurse Practitioner Family
DX: R41.3 Other amnesia (principal); I10 Essential (primary) hypertension; E11.8 Type 2 diabetes mellitus with unspecified complications; G47.00 Insomnia, unspecified; E78.5 Hyperlipidemia, unspecified
CPT/HCPCS: 99214

== ENCOUNTER 2023-04-10 07:46 | Outpatient (AMB) | payer OTHER, SELFPAY ==
--- NOTE | 2023-04-10 07:47 | A.OFFVIS_ITS ---
Intake Vital Signs 04/10/23 08:11 Height 5 ft 9 in Weight 204 lb BMI 30.1 BP 138/62 Blood Pressure Location Lt brachial Position Sitting Pulse 72 Intake Visit Reasons: 6 month fu Intake Note: Patient follow up for hx of colon polyps. Patient cc: acid reflex on and off. Denies any other GI issues. Edge Banding Machine Offbearer Required: No Accompanied by: Spouse Allergies No Known Allergies [No Known Allergies*] Allergy (Verified 04/10/23 08:06) Medication List - Last Reconciled 04/10/23 by Zhou Mitchell MD blood sugar diagnostic (EsanexTouch Ultra Test strips) As directed once a day blood-glucose meter (Blueshift International Materialsuch Ultra2 Meter kit) As directed blood-glucose meter,continuous (DexInsane Logic G6 Transportation Coordinator) As directed blood-glucose sensor (Carefx G6 Sensor device) As directed blood-glucose transmitter (Dexcom G6 Transmitter device) As directed cholecalciferol (vitamin D3) 250 mcg PO 2XW 90 days [DIABETIC SHOES (1 pair) As directed] donepezil 10 mg PO BEDTIME 90 days famotidine 20 mg PO BID 90 days hydrochlorothiazide 12.5 mg PO DAILY 90 days lancets (EsanexTouch UltraSoft Lancets) As directed once a day lancets As directed lancets (EsanexTouch UltraSoft 2 Lancet) 2 x day losartan 100 mg PO DAILY 90 days melatonin 3 mg PO BEDTIME PRN metformin 1,000 mg PO DAILY polyethylene glycol 3350 (Miralax) 17 grams PO DAILY 30 days sertraline 25 mg PO DAILY 90 days [SHOE INSERTS (3 pairs) As directed] HPI 6 month fu HPI Details GI clinic visit for this 68-year-old male for FU of colon polyps. He has a history of iron deficiency anemia in the past. 02/2020 pt underwent a diagnostic laparos copy for small-bowel obstruction by Dr. Morgan It was converted to laparotomy with small-bowel resection and primary small bowel anastomosis due to adenoca of distal jejunum/proximal ileum. Pathology:? Moderately differentiated adenocarcinoma, tumor invades adjacent loops of bowel, 1 lymph node positive, margins negative for malignancy.? Tumor size 2.5 x 1.2 cm, 3 lymph nodes examined. Pathological stage pT4N1. PET scan performed 03/21/2020 showed physiological uptake in the lingular tonsil, mass in the upper pole of right kidney only weekly FDG avid, no additional abnormality suspicious for metastatic cancer. Received adjuvant chemotherapy with modified FOLFOX regimen from 04/03/2020 until September 2020 . ? Patient had laparoscopic partial nephrectomy on 12/27/2020.? 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 Margins negative.? Pathological staging pT1a pNx. CHRONIC ILLNESSES:? Diabetes mellitus, hypertension. ?IMAGING? STUDIES:?11/27/[address] SCAN SHOWED: No evidence of metastatic or recurrent disease. Stable postsurgical changes to the upper pole of the right kidney and small bowel. Diverticulosis. Fleischner guidelines were followed. 12/[address] SCAN SHOWED: Stable appearance of the chest, abdomen, and pelvis without new findings to suggest metastatic disease. Renal cysts. Low-density regions within the skeleton which are stable and without destructive findings. Postsurgical change small bowel without adjacent adenopathy or soft tissue abnormality.? 12/15/[address] SCAN SHOWED; Stable postsurgical changes to the small bowel. Diverticulosis of the colon. Stool throughout the colon suggestive of constipation. ? Stable 3.4 x 3.5 cm partially solid partially cystic lesion in the upper pole of the right kidney suspicious for neoplasm. Small bilateral renal cysts. Stable fullness of the left adrenal gland. 01/12/19 MRI showed: ?IMPRESSION: ? 3.9 x 2.9 cm? complex cystic lesion in the upper pole of the right ? kidney? concerning for neoplasm. Bilateral simple-appearing renal ? cysts.? Diverticulosis of the colon. ?ENDOSCOPIC STUDIES:?08/2021 colonoscopy showed: No polyps were detected No recurrent polyp was seen in the cecum Moderate diverticulosis seen in the entire colon Moderate hemorrhoids on retroflexed exam. Plan:? Repeat Colonoscopy in 3 years due to fair prep in some areas of the colon and a hx of adenomatous colon polyp 11/2018 and 12/2018 Pt was hospitalized at [facility] x 2 wih melena associated with? iron deficiency anemia. Upper endoscopy was performed by Dr. Valiente during his?1st hospitalization and showed a small hiatal hernia and no source of bleeding? was found. ?COLONOSCOPY ON 01/05/2019 SHOWED: ?Colonoscopy? Findings: ?Two polyps removed ?Moderate diverticulosis seen in? the entire colon ?Moderate hemorrhoids on retroflexed? exam. ?Plan: ?Await pathology results ?Patient to? schedule a FU appointment in the GI Clinic with Zhou Mitchell M.D. ?in? 2 weeks ?Repeat Colonoscopy in 1-2 years if cecal polyp is adenomatous? to check ?polypectomy site and due to fair to poor prep in the rectum -? add a fleet enema ?to his prep on arrival in the prep room for future? colonoscopies. ?Above findings were reviewed with the patient and colon? polyps and ?diverticulosis handouts were given in the discharge? area ?Biopsies showed: ?A. Colon, cecum, polypectomy:? Fragments of tubular adenoma; negative for high grade ?dysplasia and? carcinoma. ?B. Colon, transverse, polypectomy: Fragments of tubular? adenoma; negative for high grade dysplasia and? carcinoma. TODAY'S VISIT Patient is accompanied by his? who interpreted for the patient. Intermittent heartburn and take Famotidine prn with relief of symptoms. Takes Miralax as needed for constipation. Trying to lose weight by making changes in his diet. PAST VISIT: noted he had acid reflux and burping and has been taking Gas X. Does not drink milk. Takes Glucerna 1-[address] in place of lunch. Denies constipation - drinking a lot of water Taking Miralax prn if he feels constipated. Having a BM daily. Pt is having some back pain and waiting to see his PCP for appropriate referrals Taking Miralax daily with improvement in constipation. Has a BM every 1-2 days. he stopped taking iron pills as advised by Dr Junior since MIKE has resolved. Complains of constipation and has a BM every other day but its a struggle Notes hard stool sometimes associated with straining Patient denies change in bowel habits, black stools or rectal? bleeding Denies dysphagia, heartburn, nausea or vomiting, change in? appetite or weight. Notes some burping after drinking He was taking iron daily for MIKE and decreased to twice a week by Dr Sandi BROOKS Medical History Anemia Diabetes Diverticula of colon Essential hypertension H/O malignant neoplasm of small intestine Hypertension Kidney mass Memory impairment Renal cell carcinoma of right kidney Type 2 diabetes mellitus with unspecified complications Vitamin D deficiency Surgical History Hx of colonoscopy Hx of kidney removal History of esophagogastroduodenoscopy (EGD) H/O sinus surgery Family History Father No problems noted. Mother Heart disease Pancreas cancer Maternal Grandmother Stomach cancer Social History Household Members: Spouse Housing: Apartment Are you a primary intensive care unit registered nurse to a significant other at home: No Do you presently have visiting nurse or other home services: No Alcohol intake: former Patient Tobacco Use Status: Former Tobacco user Tobacco use type: Cigar e-Cigarette/Vaping Use: Never Used Second Hand Smoke Exposure: No service: No Current occupational status: retired Cognitive needs: No Hearing needs: No Vision needs: Yes (glasses) Review of Systems Const All systems reviewed & are unremarkable except as noted in HPI and below Physical Exam Vital Signs: Last Vital Signs Pulse 72 04/10/23 08:11 BP 138/62 04/10/23 08:11 BMI result Body Mass Index 30.1 Const General: healthy appearing and no acute distress Nutritional Appearance: obese Orientation/consciousness: patient oriented x3 Limitations: language barrier HEENT Head: Yes normal to inspection Ears: hearing grossly normal bilaterally Eyes Sclerae: sclerae normal Pupils: Equal, round and reactive pupils present Neck Neck: Yes normal visual inspection Chest Chest palpation & inspection: normal inspection of the chest Resp Effort & Inspection: normal respiratory effort Auscultation: clear to auscultation bilaterally Cardio Palpation: normal PMI Rate: regular rate Rhythm: regular rhythm Heart sounds: S1 normal heart sound present, S2 normal heart sound present and no murmurs GI Palpation (GI): Soft to palpation, nontender and No hepatosplenomegaly present Auscultation: normal bowel sounds Rectal Exam - Male: Yes deferred Skin General skin exam: no rashes or lesions noted Neuro General: patient oriented x3, gait normal and moves all extremities Cranial nerves: Yes Equal, round and reactive pupils present Psych Appearance: grossly normal Mental Status: mental status grossly normal Assessment & Plan Assessment & Plan (1) History of colon polyps: Code(s): Z86.010 - Personal history of colonic polyps (2) 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, AJCC stage III S/P small bowel resection (distal jejunum, proximal ileum and mesentery) and primary small bowel anastomosis on 02/23/2020 Completed adjuvant chemotherapy with modified FOLFOX regimen from 03/2020 to September 2020 Code(s): Z85.068 - Personal history of other malignant neoplasm of small intestine Plan 68 YM with DM and Htn followed in GI for anemia and a hx of colon polyps. 02/2020 pt underwent a diagnostic laparoscopy for small-bowel obstruction by Dr. Morgan It was converted to laparotomy with small-bowel resection and primary small bowel anastomosis due to adenoca of distal jejunum/proximal ileum. Pathology:? Moderately differentiated adenocarcinoma, tumor invades adjacent loops of bowel, 1 lymph node positive, margins negative for malignancy.? Tumor size 2.5 x 1.2 cm, 3 lymph nodes examined. Pathological stage pT4N1.? PET scan performed 03/21/2020 showed physiological uptake in the lingular tonsil, mass in the upper pole of right kidney only weekly FDG avid, no additional abnormality suspicious for metastatic cancer. Received adjuvant chemotherapy with modified FOLFOX regimen from 04/03/2020 until September 2020 . ? Patient had laparoscopic partial nephrectomy on 12/27/2020.? 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 Margins negative.? Pathological staging pT1a pNx. Pt is being followed by Dr Junior. 12/[address] SCAN SHOWED:??Stable appearance of the chest, abdomen, and pelvis without new findings to suggest metastatic disease. Patient denies known family history of colon? polyps or cancer though his knowledge regarding his family history is somewhat? limited. Aug 2021 colonoscopy showed diverticulosis and hemorrhoids and no polyps were detected. Repeat colonoscopy is advised in 3 yrs due to fair prep. Pt noted heartburn and bloating and prescribed Famotidine 20 mg twice daily prn with adequate control of symptoms FU appt in 12 months Coding Level of Care Code Est Pt Level 3 (47376) Diagnoses History of colon polyps Z86.010 H/O malignant neoplasm of small intestine Z85.068 Time Spent (min) 14
[2023-04-10 08:11] VITALS: BP 138/62; PULSE 72; BMI 30.1
== END 2023-04-10 08:27 | disposition home or self-care (01) ==
PROVIDERS: Visit Provider Internal Medicine Gastroenterology
DX: K21.9 Gastro-esophageal reflux disease without esophagitis (principal); Z86.010 Personal history of colon polyps; Z85.068 Personal history of other malignant neoplasm of small intestine
CPT/HCPCS: 99213

== ENCOUNTER → 2023-04-10 07:46 | Outpatient (BNVA) | payer OTHER, SELFPAY | PROVIDERS: Visit Provider Internal Medicine Gastroenterology | DX: Z85.068 Personal history of other malignant neoplasm of small intestine (principal); Z86.010 Personal history of colon polyps | CPT/HCPCS: 99212 ==

== ENCOUNTER 2023-04-21 07:41 | Outpatient (AMB) | payer OTHER, SELFPAY ==
--- NOTE | 2023-04-21 08:04 | MHC.OFFVIS ---
Intake Vital Signs 04/21/23 08:12 Height 5 ft 11 in Weight 211 lb BMI 29.4 BP 142/80 H Blood Pressure Location Lt brachial Position Sitting Pulse 60 Pulse Source Pulse Oximeter Pulse Oximetry (%) 97 Oxygen Delivery Method Room Air Intake Visit Reasons: INP-Amnesia - LVM Intake Note: NPV for Brain frog Sleep Technologist Required: No Allergies No Known Allergies [No Known Allergies*] Allergy (Verified 04/24/23 09:15) HPI HPI Comments History of Present Illness Details 68 y/o male patient presents with his for new in-person visit for evaluation of memory loss. Pt was diagnosed with colon cancer 3 years ago and had chemotherapy for 6 month. Patient's noticed patient is more forgetful and having intermittent confusion after chemotherapy. He confused about the day, lose things and can't remember what he wanted from refrigerator. Denies repeating questions or wondering. Denies confusion of family members name. His takes care of bills. Does not have problem with daily activities. He does not drive. Pt started donepezil 10 mg 8 months ago, and he feels his memory has improved a little. The donepezil increased to 20 mg but not started yet. Pt's states that patient was a hard worker, and now he is board and depressed after he retired. 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 Pt has T2DM, and his last A1C was 7.4. Pt's reports that he is not a good sleeper. He snores, wakes up frequently in the middle of night, and having daytime sleepiness. He is not physically active, usually just sitting and watching TV during daytime. [facility] Medical History (Updated 04/29/23 @ 09:00 by Antonia Holley CNP) Overweight (BMI 25.0-29.9) Alzheimer's dementia Depression Vitamin D deficiency Memory impairment Renal cell carcinoma of right kidney Essential hypertension Type 2 diabetes mellitus with unspecified complications H/O malignant neoplasm of small intestine Diverticula of colon Kidney mass Anemia Diabetes Hypertension Surgical History Hx of colonoscopy Hx of kidney removal History of esophagogastroduodenoscopy (EGD) H/O sinus surgery Family History Father No problems noted. Mother Heart disease Pancreas cancer Maternal Grandmother Stomach cancer Social History Household Members: Spouse Housing: Apartment Are you a primary primary care pediatrician to a significant other at home: No Do you presently have visiting nurse or other home services: No Alcohol intake: former Patient Tobacco Use Status: Former Tobacco user Tobacco use type: Cigar e-Cigarette/Vaping Use: Never Used Second Hand Smoke Exposure: No service: No Current occupational status: retired Cognitive needs: No Hearing needs: No Vision needs: Yes (glasses) Review of Systems Const All systems reviewed & are unremarkable except as noted in HPI and below ENT Reports Normal hearing present Neuro Reports Normal hearing present Physical Exam Vital Signs: Last Vital Signs Pulse 60 04/21/23 08:12 BP 142/80 H 04/21/23 08:12 Pulse Ox 97 04/21/23 08:12 Oxygen Delivery Method Room Air 04/21/23 08:12 BMI result Body Mass Index 29.4 Const General: cooperative and tired appearing Nutritional Appearance: overweight Orientation/consciousness: oriented to person Limitations: language barrier Neck Neck: Yes full ROM and Yes supple Resp Effort & Inspection: normal respiratory effort and able to speak in complete sentences Neuro General: oriented to person Cranial nerves: Yes Bilaterally intact EOM present, Yes Normal facial strength present, Yes Midline tongue present, Yes Symmetric palate elevation present, Yes Normal hearing present, Yes Ability to bilaterally rotate head present and Yes Ability to bilaterally elevate shoulders present Motor exam (neuro): 5/5 motor strength present throughout, Pronator motor function not present and no tremor noted Psych Appearance: grossly normal Mental Status: mental status grossly normal Speech and movement: Normal speech and movement present Affect: normal affect Attitude: cooperative Orientation Where are we (state) (county) (town or city) (hospital) (floor)?: state, county, town or city and hospital/clinic Registration Name of 3 unrelated objects clearly and slowly, then ask patient to repeat all 3 of them. (1st repeat determines score. Make sure they can repeat all three): object 1 Language Show patient a wristwatch & ask what it is. Repeat for pencil.: watch and pencil Ask the patient to repeat the phrase 'No ifs, ands, or buts' after you.: incorrect Ask the patient to 'take a piece of paper with their right hand' 'fold paper in half' 'place paper on floor': take paper in right hand, fold paper in half and place paper on floor Print the sentence 'CLOSE YOUR EYES' on a piece. If patient actually closes eyes then score.: followed written direction Score Score: 11 Assessment & Plan Assessment & Plan (1) Dementia: Code(s): F03.90 - Unspecified dementia, unspecified severity, without behavioral disturbance, psychotic disturbance, mood disturbance, and anxiety (2) Insomnia: Code(s): G47.00 - Insomnia, unspecified (3) Memory impairment: Code(s): R41.3 - Other amnesia (4) Snoring: Code(s): R06.83 - Snoring (5) Daytime sleepiness: Code(s): R40.0 - Somnolence Plan Pt is advised to undergo sleep study to assess for sleep apnea. Will f/u with pt after study to discuss results and appropriate treatment options. Advised patient to undergo brain MRI. Check labs to see any reversible cause for memory loss. Advised patient to do daily exercise, 30 min walking daily. Start donepezil 20 mg daily as prescribed. Pt to call with any worsening concerns or questions. Orders: Orders RT home sleep study 04/21/23 G47.00 - Insomnia, unspecified, R41.3 - Other amnesia, I10 - Essential (primary) hypertension, E11.8 - Type 2 diabetes mellitus with unspecified complications, R40.0 - Somnolence, R06.83 - Snoring MR head/brain wo con 04/21/23 R41.3 - Other amnesia, I10 - Essential (primary) hypertension Vitamin D 25-OH (D2 and D3) 04/22/23 R41.3 - Other amnesia, E55.9 - Vitamin D deficiency, unspecified Vitamin B12 and Folate 04/22/23 R41.3 - Other amnesia, E55.9 - Vitamin D deficiency, unspecified HIV Ab/Ag 04/22/23 R41.3 - Other amnesia, F03.90 - Unspecified dementia, unspecified severity, without behavioral disturbance, psychotic disturbance, mood disturbance, and anxiety RPR Monitor reflex titer 04/22/23 Coding Level of Care Code New Pt Level 4 (95734) Diagnoses Dementia F03.90 Insomnia G47.00 Memory impairment R41.3 Snoring R06.83 Daytime sleepiness R40.0
[2023-04-21 08:12] VITALS: BP 142/80; PULSE 60; O2SAT 97; BMI 29.4
== END 2023-04-21 08:59 | disposition home or self-care (01) ==
PROVIDERS: PCP Internal Medicine; Visit Provider Nurse Practitioner Family
DX: F03.90 Unspecified dementia, unspecified severity, without behavioral disturbance, psychotic disturbance, mood disturbance, and anxiety (principal); G47.00 Insomnia, unspecified; R41.3 Other amnesia; R06.83 Snoring; R40.0 Somnolence
CPT/HCPCS: 99204

== ENCOUNTER → 2023-04-21 07:41 | Outpatient (BNVA) | payer OTHER, SELFPAY | PROVIDERS: PCP Internal Medicine; Visit Provider Nurse Practitioner Family ==

== ENCOUNTER 2023-04-22 07:09 | Outpatient (REF) | payer OTHER, SELFPAY ==
[2023-04-22 07:54] LABS: Estimated Average Glucose 169 mg/dL; Hemoglobin A1c % 7.5 % (<6.0)
[2023-04-22 08:18] LABS: Alanine Aminotransferase 21 U/L (0-40); Albumin Level 4.4 g/dL (3.5-5.0); Alkaline Phosphatase 81 U/L (39-117); Anion Gap 14 (12-20); Aspartate Amino Transferase 18 U/L (5-37); Bilirubin Total 0.7 mg/dL (0.0-1.0); Blood Urea Nitrogen 18 mg/dL (9-16); Calcium 10.4 mg/dL (8.4-10.2); Carbon Dioxide 28 mmol/L (22-29); Chloride 101 mmol/L (96-108); Cholesterol 192 mg/dL (<200); Estimated Glomerular Filt Rate 54; Glucose Fasting 188 mg/dL (60-99); HDL Cholesterol 50 mg/dL (>40); LDL Cholesterol Calculated 116 mg/dL (<100); Potassium 4.1 mmol/L (3.3-5.1); Sodium 139 mmol/L (135-145); Total Protein 8.3 g/dL (6.5-8.0); Triglycerides 133 mg/dL (<150)
[2023-04-22 08:30] LABS: HIV AB/AG Nonreactive (Nonreactive); HIV Num 1 0.11 S/CO (0.00-0.99)
[2023-04-22 08:44] LABS: Vitamin B12 408 pg/mL (200-900)
[2023-04-23 18:58] LABS: RPR Rapid Plasma Reagin NON-REACTIVE (NON-REACTIVE)
[2023-04-26 13:27] LABS: Vitamin D 25-OH, D2 <4 ng/mL; Vitamin D 25-OH, D3 36 ng/mL; Vitamin D 25-OH, Total 36 ng/mL (30-100)
== END 2023-04-22 07:10 | disposition home or self-care (01) ==
LOC: HO.LAB 07:09
PROVIDERS: Nurse Practitioner Family; PCP Internal Medicine; Referring Provider Internal Medicine; Visit Provider Nurse Practitioner Family
DX: R41.3 Other amnesia (principal); E55.9 Vitamin D deficiency, unspecified; E11.8 Type 2 diabetes mellitus with unspecified complications; F03.90 Unspecified dementia, unspecified severity, without behavioral disturbance, psychotic disturbance, mood disturbance, and anxiety
CPT/HCPCS: 36415; 80053; 80061; 82306; 82607; 82746; 83036; 86592; 87389

== ENCOUNTER 2023-04-24 08:50 | Outpatient (AMB) | payer OTHER, SELFPAY ==
[2023-04-24 08:54] VITALS: BP 132/84; PULSE 62; O2SAT 98; BMI 29.4
--- NOTE | 2023-04-24 08:54 | A.OFFPC_ITS ---
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: No Accompanied by: Self / Same As Patient Allergies No Known Allergies [No Known Allergies*] Allergy (Verified 04/24/23 09:15) Medication List - Last Reconciled 04/24/23 by Yuri Wilkes MD blood sugar diagnostic (Udemyuch Ultra Test strips) As directed once a day blood-glucose meter (Udemyuch Ultra2 Meter kit) As directed cholecalciferol (vitamin D3) 250 mcg PO 2XW 90 days [DIABETIC SHOES (1 pair) As directed] donepezil 10 mg PO BEDTIME 90 days famotidine 20 mg PO BID 90 days hydrochlorothiazide 12.5 mg PO DAILY 90 days lancets (Udemyuch UltraSoft Lancets) As directed once a day lancets As directed losartan 100 mg PO DAILY 90 days metformin 1,000 mg PO DAILY polyethylene glycol 3350 (Miralax) 17 grams PO DAILY 30 days sertraline 25 mg PO DAILY 90 days [SHOE INSERTS (3 pairs) As directed] Tobacco use date assessed: 04/24/23 Fall risk assessment: No Falls in past year Last assessed Fall Risk: 04/24/23 Dental Screening Dental Screen Date: 04/24/23 Did you have a dental visit in the last 12 months?: Yes Did you have a dental problem in the last 6 months where you did not have access to dental care?: No Was dental information given to patient?: Patient has dentist HPI DAYANARA ARAUJO HPI Details Patient comes in today for his follow up visit States that he feels okay Was seen by [facility] for follow up a few days ago (used to see Dr. Bradley but they recently switched neurologist) and is being scheduled for a repeat brain MRI He denies any headaches or dizziness Denies any chest pains, no SOB No nausea/vomiting, no abdominal pain No change in bowel habits noted His states that he is sleeping better at present and is no longer taking Melatonin; states that she noticed that he seemed more confused when he was on Melatonin He needs several of his Rx refilled Had his follow up labs done a couple of days ago - to discuss his results He is also scheduled to see Dr. Tomlinson in [place] next month but they are requesting for a referal to a orthopedic dentist locally, either here in [place] or [place], as they find [place] to be too far for them to drive to He was seen by Dr. Mitchell for DI follow up a couple of weeks ago and will see her again in 1 year for GI follow up He has an appt to see Dr. 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 [facility] Medical History (Updated 04/24/23 @ 10:01 by Yuri Wilkes MD) Overweight (BMI 25.0-29.9) Alzheimer's dementia Depression Vitamin D deficiency Memory impairment Renal cell carcinoma of right kidney Essential hypertension Type 2 diabetes mellitus with unspecified complications H/O malignant neoplasm of small intestine Diverticula of colon Kidney mass Anemia Diabetes Hypertension Surgical History Hx of colonoscopy Hx of kidney removal History of esophagogastroduodenoscopy (EGD) H/O sinus surgery Family History Father No problems noted. Mother Heart disease Pancreas cancer Maternal Grandmother Stomach cancer Social History Household Members: Spouse Housing: Apartment Are you a primary senior resident care director to a significant other at home: No Do you presently have visiting nurse or other home services: No Alcohol intake: former Patient Tobacco Use Status: Former Tobacco user Tobacco use type: Cigar e-Cigarette/Vaping Use: Never Used Second Hand Smoke Exposure: No service: No Current occupational status: retired Cognitive needs: No Hearing needs: No Vision needs: Yes (glasses) Questionnaire PHQ-9 Over the last 2 weeks, how often have you been bothered by any of the following problems? 1. Little interest or pleasure in doing things: not at all 2. Feeling down, depressed, or hopeless: not at all 3. Trouble falling or staying asleep, or sleeping too much: not at all 4. Feeling tired or having little energy: not at all 5. Poor appetite or overeating: not at all 6. Feeling bad about yourself - or that you are a failure or have let yourself or your family down: not at all 7. Trouble concentrating on things, such as reading the newspaper or watching television: not at all 8. Moving or speaking so slowly that other people could have noticed. Or the opposite - being so fidgety or restless that you have been moving around a lot more than usual: not at all 9. Thoughts that you would be better off or of hurting yourself in some way: not at all Total score: 0 Depression Screening Interpretation: Negative Depression Screening Done: Yes 75300 - PHQ-9 Billing: Yes Source: Developed by Drs. Ashkan Henning, Heena Raphael, Rafiq Cristina and colleagues, with an educational edwige from [employer]. Thrive Questionnaire Date Thrive assessed: 04/24/23 I am a: Patient What is your living situation today?: I have a steady place to live Within the past 12 months, did the food you bought not last and you didn't have the money to get more?: Never true Within the past 12 months, did you worry whether your food would run out before you got money to buy more?: Never true Do you have trouble paying for medicines?: No Do you have trouble getting transportation to medical appointments?: No Do you have trouble paying your heating and electricity bill?: No Do you have trouble taking care of your child, family member or friend?: No Do you have trouble with day-to-day activities such as bathing, preparing meals, shopping, managing finances, etc.?: No Are you currently unemployed and looking for a job?: No Are you interested in more education?: No Please select the resources that you would like help with: None Currently or been in a relationship where the following occur: no concerns reported AUDIT C Alcohol Use Questionnaire (AUDIT-C) 1. How often do you have a drink containing alcohol?: Never 3. How often do you have six or more drinks on one occasion?: Never Total Score: 0 Score Reviewed/Action Taken: Yes LAURA-7 AMB Questionnaire LAURA-7 Date LAURA - 7 assessed: 04/24/23 Feeling nervous, anxious, or on edge: 0 = Not at all Not being able to stop or control worryin = Not at all Worrying too much about different things: 0 = Not at all Trouble relaxin = Not at all Being so restless that it is hard to sit still: 0 = Not at all Becoming easily annoyed or irritable: 0 = Not at all Feeling afraid as if something awful might happen: 0 = Not at all Total LAURA-7 score (0-4 normal; 5-9 mild; 10-14 moderate; 15-21 severe): 0 Source: Developed by Drs. Ashkan Henning, Heena Raphael, Rafiq Cristina and colleagues, with an educational edwige from [employer]. Review of Systems Const Denies chills, Denies difficulty sleeping, Denies fatigue, Denies fever(s) and Denies headache(s) ENT Denies dysphagia, Denies dizziness, Denies otalgia, Denies headache(s), Denies neck pain, Denies odynophagia and Denies sore throat Card Denies chest pain, Denies palpitations and Denies dyspnea Resp Denies cough and Denies dyspnea GI Denies abdominal pain, Denies constipation (better controlled on Rx), Denies dysphagia, Denies heartburn, Denies diarrhea, Denies nausea, Denies odynophagia and Denies vomiting Denies dysuria, Denies nocturia and Denies urinary frequency Musc Denies back pain and Denies neck pain Neuro Denies behavioral changes, Reports confusion (on and off), Denies dizziness, Denies headache(s) and Reports memory loss (very forgetful) Psych Denies behavioral changes, Reports confusion (on and off) and Reports memory loss (very forgetful) Endo Denies fatigue and Denies palpitations Physical exam (Primary Care) Vital Signs: Last Vital Signs Pulse 62 04/24/23 08:54 BP 132/84 04/24/23 08:54 Pulse Ox 98 04/24/23 08:54 Oxygen Delivery Method Room Air 04/24/23 08:54 BMI result Body Mass Index 29.4 Tobacco/Smoking Status: Tobacco use Status Tobacco use date assessed 04/24/23 04/24/23 09:04 Patient Tobacco Use Status Former Tobacco user 04/24/23 09:04 Tobacco use type Cigar 04/24/23 09:04 e-Cigarette/Vaping Use Never Used 04/24/23 09:04 PHQ-9: PHQ-9 Score PHQ-9: Total score 0 04/24/23 09:04 Depression Screening Interpretation: Negative Thrive Assessment: Date of Thrive Assessment Date Thrive assessed 04/24/23 04/24/23 09:04 Currently or been in a relationship where the following occur: no concerns reported Const General: confusion (on and off) Orientation/consciousness: confusion (on and off) HENMT Ears: TM's normal bilaterally and EAC's normal Throat: Yes posterior oropharynx normal and Yes tonsils normal (no TP congestion) Neck Neck: Yes no lymphadenopathy and Yes supple Resp Auscultation: clear to auscultation bilaterally, no rales and no wheezes Cardio Rate: regular rate Rhythm: regular rhythm Heart sounds: no murmurs GI Palpation (GI): Soft to palpation and nontender Auscultation: normal bowel sounds General: Yes no CVA tenderness Back/Spine/Pelvis Back: no CVA tenderness Skin Rashes: no rashes Neuro General: confusion (on and off) Gait exam (Neuro): Normal gait present Extrem General: Yes no clubbing, cyanosis or edema Results Reviewed Results Reviewed: Laboratory Tests 04/22/23 07:26 Sodium 139 Potassium 4.1 Creatinine 1.32 Estimated GFR 54 Fasting Glucose 188 H Calcium 10.4 H AST 18 ALT 21 Triglycerides 133 Cholesterol 192 LDL Cholesterol, Calc 116 H HDL Cholesterol 50 Vitamin B12 408 Assessment and Plan Assessment & Plan (1) Alzheimer's dementia: Code(s): G30.9 - Alzheimer's disease, unspecified; F02.80 - Dementia in other diseases classified elsewhere, unspecified severity, without behavioral disturbance, psychotic disturbance, mood disturbance, and anxiety Qualifiers: Alzheimer's disease onset: unspecified onset Dementia severity: unspec ified severity Dementia behavioral or psychological symptom: without behavioral, psychotic, or mood disturbance or anxiety Qualified Code(s): G30.9 - Alzheimer's disease, unspecified; F02.80 - Dementia in other diseases classified elsewhere, unspecified severity, without behavioral disturbance, psychotic disturbance, mood disturbance, and anxiety Plan: CT head done in 2020 revealed (+) mild to moderate frontoparietal cortical atrophy Continue Donepezil 10 mg QD Patient used to see Dr. Bradley for neurology follow up but switched over to [facility] and was seen a few days ago Is being sent for a repeat MRI of the brain for follow up - this is currently still awaiting scheduling (2) Type 2 diabetes mellitus with unspecified complications: Code(s): E11.8 - Type 2 diabetes mellitus with unspecified complications Plan: Results of his labs done a couple of days ago reviewed and discussed with patient and his HgbA1c was at 7.5 on his most recent labs (was at 8.0% a few months ago) - goal is at least < 7.0% Reinforced diabetic diet - have again advised his family to help him with this and take charge of his diet as patient would not be able to do this on his own due to his dementia Continue Metformin 1000 mg QD Per request, will change his Podiatry referral from Dr. Tomlinson to Dr. Fraga over in [place] (3) Essential hypertension: Code(s): I10 - Essential (primary) hypertension Plan: Reinforced low sodium diet - goal is systolic BP of at least 130 mm or less Continue Losartan 100 mg QD and HCTZ 12.5 mg QD; used to also take Amlodipine 2.5 mg QD but this was discontinued a few months ago and he has been doing well since (4) Renal cell carcinoma of right kidney: Comment: Clear cell carcinoma, pathological staging pT1a pNx Code(s): C64.1 - Malignant neoplasm of right kidney, except renal pelvis Plan: S/P partial nephrectomy on 12/27/2020 - tumor was limited to the kidney, with no sarcomatoid features, no tumor necrosis or lymphovascular invasion and margins are negative Follow up with urology as scheduled for continuing surveillance (5) 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, AJCC stage III S/P small bowel resection (distal jejunum, proximal ileum and mesentery) and [facility] small bowel anastomosis on 02/23/2020 Completed adjuvant chemotherapy with modified FOLFOX regimen from 03/2020 to September 2020 Code(s): Z85.068 - Personal history of other malignant neoplasm of small intestine Plan: Follow up with oncology and GI as scheduled for continuing surveillance and monitoring (6) Gastritis: Code(s): K29.70 - Gastritis, unspecified, without bleeding Qualifiers: Gastritis type: unspecified gastritis Chronicity: unspecified Gastritis bleeding: without bleeding Qualified Code(s): K29.70 - Gastritis, unspecified, without bleeding Plan: His previous abdominal symptoms have improved with Rx Continue Famotidine 20 mg BID PRN Dietary restrictions reinforced (7) Vitamin D deficiency: Code(s): E55.9 - Vitamin D deficiency, unspecified Plan: His repeat Vitamin D level done a couple of days ago is still pending at the time of this visit Continue Vitamin D3 250 mcg 2 times a week Will recheck his Vitamin D level in 3 months for follow up (8) Depression: Code(s): F32.A - Depression, unspecified Qualifiers: Depression Type: major depressive disorder Major depression recurrence: recurrent Active/Remission status: currently active Major depression episode severity: unspecified Qualified Code(s): F33.9 - Major depressive disorder, recurrent, unspecified Plan: Patient was diagnosed with depression as well by neurology a couple of months ago and started on Rx for his mood disorder Continue Sertraline 25 mg QD (9) Overweight (BMI 25.0-29.9): Code(s): E66.3 - Overweight Plan: Reinforced diet; exercise and weight loss are not realistic but have encouraged patient (and his family to help him) stay active as much as he can Plan Follow up in 3 months Orders: Orders Lipid Panel 3 Months E78.00 - Pure hypercholesterolemia, unspecified Comprehensive Ackerman. Panel Fast 3 Months E78.00 - Pure hypercholesterolemia, unspecified UA CC w/rflx Micro + Cult 3 Months R30.0 - Dysuria Microalbumin, Random (w Creat) 3 Months E11.9 - Type 2 diabetes mellitus without complications Vitamin B12 and Folate 3 Months E53.8 - Deficiency of other specified B group vitamins Vitamin D 25-OH Total 3 Months E55.9 - Vitamin D deficiency, unspecified Complete Blood Count Auto Diff 3 Months I10 - Essential (primary) hypertension TSH reflex Free T4 3 Months E78.00 - Pure hypercholesterolemia, unspecified Hemoglobin A1c 3 Months E11.9 - Type 2 diabetes mellitus without complications Referrals Podiatry Referral E11.8 - Type 2 diabetes mellitus with unspecified complicat ions Medications: Refilled famotidine 20 mg PO BID 90 days 180 tabs 1RF losartan 100 mg PO DAILY 90 days 90 tabs 1RF I10 - Essential (primary) hypertension metformin 1,000 mg PO DAILY 90 tabs 1RF E11.8 - Type 2 diabetes mellitus with unspecified complications hydrochlorothiazide 12.5 mg PO DAILY 90 days 90 caps 1RF I10 - Essential (primary) hypertension sertraline 25 mg PO DAILY 90 days 90 tabs 1RF cholecalciferol (vitamin D3) 250 mcg PO 2XW 90 days 26 caps 1RF E55.9 - Vitamin D deficiency, unspecified Coding Level of Care Code Est Pt Level 4 (86680) Diagnoses Alzheimer's dementia without behavioral disturbance, psychotic disturbance, mood disturbance, or anxiety, unspecified dementia severity, unspecified timing of dementia onset G30.9; F02.80 Alzheimer's disease onset: unspecified onset Dementia severity: unspecified severity Dementia behavioral or psychological symptom: without behavioral, psychotic, or mood disturbance or anxiety Type 2 diabetes mellitus with unspecified complications E11.8 Essential hypertension I10 Renal cell carcinoma of right kidney C64.1 H/O malignant neoplasm of small intestine Z85.068 Gastritis without bleeding, unspecified chronicity, unspecified gastritis type K29.70 Gastritis type: unspecified gastritis Chronicity: unspecified Gastritis bleeding: without bleeding Vitamin D deficiency E55.9 Episode of recurrent major depressive disorder, unspecified depression episode severity F33.9 Depression Type: major depressive disorder Major depression recurrence: recurrent Active/Remission status: currently active Major depression episode severity: unspecified Overweight (BMI 25.0-29.9) E66.3
== END 2023-04-24 09:33 | disposition home or self-care (01) ==
PROVIDERS: PCP Internal Medicine; Visit Provider Internal Medicine
DX: E11.8 Type 2 diabetes mellitus with unspecified complications (principal); G30.9 Alzheimer's disease, unspecified; F02.80 Dementia in other diseases classified elsewhere, unspecified severity, without behavioral disturbance, psychotic disturbance, mood disturbance, and anxiety; C64.1 Malignant neoplasm of right kidney, except renal pelvis; F33.9 Major depressive disorder, recurrent, unspecified; I10 Essential (primary) hypertension; Z85.068 Personal history of other malignant neoplasm of small intestine; K29.70 Gastritis, unspecified, without bleeding; E55.9 Vitamin D deficiency, unspecified; E66.3 Overweight
CPT/HCPCS: 99214

== ENCOUNTER → 2023-06-16 12:55 | Outpatient (REF) | payer OTHER, SELFPAY | LOC: HO.SL 12:55 | PROVIDERS: PCP Internal Medicine; Visit Provider Nurse Practitioner Family | DX: G47.33 Obstructive sleep apnea (adult) (pediatric) (principal); G47.00 Insomnia, unspecified; R41.3 Other amnesia; R40.0 Somnolence; R06.83 Snoring | CPT/HCPCS: 95806 ==

== ENCOUNTER → 2023-06-16 13:09 | Outpatient (BNV) | payer OTHER, SELFPAY | PROVIDERS: PCP Internal Medicine; Visit Provider Psychiatry & Neurology Neurology | DX: G47.33 Obstructive sleep apnea (adult) (pediatric) (principal) | CPT/HCPCS: 95806 ==

== ENCOUNTER 2023-06-19 07:16 | Outpatient (REF) | payer OTHER, SELFPAY ==
--- NOTE | ~2023-06-19 | MR_ITS ---
EXAMINATION: MR BRAIN WITHOUT CONTRAST CLINICAL INFORMATION: Amnesia COMPARISON: CT head 07/08/2020 TECHNIQUE: MRI of the brain was obtained using routine sequences without contrast. FINDINGS: There is no reduced diffusion to suggest acute infarct. Numerous small foci of susceptibility artifact in a peripherally predominant location throughout the bilateral cerebral hemispheres. Additional punctate focus in the left cerebellar hemisphere. Generalized cerebral volume loss with associated ventricular and sulcal prominence. Periventricular, subcortical, and likely pontine, T2/FLAIR hyperintense foci are nonspecific but likely represent chronic microvascular ischemic change. Intracranial flow voids are grossly preserved. Hippocampal volume appears comparable to the generalized degree of cerebral volume loss. Polypoid mucosal thickening in the paranasal sinuses. The mastoid air cells are well-aerated. No focal expansile/destructive osseous lesion. MR/MR head/brain wo con IMPRESSION: Numerous foci of susceptibility artifact in a peripheral distribution may be seen in the setting of underlying cerebral amyloid angiopathy. Clinical correlation is recommended. Mild generalized cerebral volume loss with associated ventricular and sulcal prominence. Mild to moderate chronic microvascular ischemic change.
== END 2023-06-19 07:17 | disposition home or self-care (01) ==
LOC: HO.MRI 07:16
PROVIDERS: PCP Internal Medicine; Visit Provider Nurse Practitioner Family
DX: R41.3 Other amnesia (principal); I10 Essential (primary) hypertension
CPT/HCPCS: 70551

== ENCOUNTER 2023-07-11 07:10 | Outpatient (REF) | payer OTHER, SELFPAY ==
[2023-07-11 07:23] LABS: MANUAL DIFF FLAG NO
[2023-07-11 07:36] LABS: Basophils Absolute Auto 0.1 X10*3/uL (0.0-0.2); Basophils Percent Auto 0.6 % (0-2); Eosinophils Absolute Auto 0.1 X10*3/uL (0.0-0.4); Eosinophils Percent Auto 1.3 % (0-4); Hematocrit 47.4 % (42.0-52.0); Hemoglobin 16.2 g/dl (14.0-18.0); Imm Gran Abs Auto 0.03 X10*3/uL (0.00-0.03); Imm Gran Pct Auto 0.3 % (0.0-0.4); Lymphocytes Absolute Auto 2.9 X10*3/uL (1.2-4.9); Lymphocytes Percent Auto 29.5 % (20-40); Mean Corpuscular HGB Conc 34.2 g/dl (31.0-36.0); Mean Corpuscular Hemoglobin 29.9 pg (27.0-33.0); Mean Corpuscular Volume 87.6 fL (80.0-98.0); Mean Platelet Volume 9.3 fL (9.4-12.4); Monocytes Absolute Auto 0.7 X10*3/uL (0.1-1.2); Monocytes Percent Auto 6.7 % (2-11); Neutrophils Absolute Auto 5.9 x10*3/uL (2.0-8.3); Neutrophils Percent Auto 61.6 % (45-73); Platelet Count 306 X10*3/uL (160-400); Red Blood Count 5.41 X10*6/uL (4.60-5.80); Red Cell Distribution Width 12.5 % (11.0-16.0); White Blood Count 9.7 X10*3/uL (4.8-10.8)
[2023-07-11 08:07] LABS: Alanine Aminotransferase 28 U/L (0-40); Albumin Level 4.4 g/dL (3.5-5.0); Alkaline Phosphatase 91 U/L (39-117); Anion Gap 13 (12-20); Aspartate Amino Transferase 19 U/L (5-37); Bilirubin Total 0.6 mg/dL (0.0-1.0); Blood Urea Nitrogen 18 mg/dL (9-16); Calcium 10.3 mg/dL (8.4-10.2); Carbon Dioxide 29 mmol/L (22-29); Chloride 103 mmol/L (96-108); Cholesterol 191 mg/dL (<200); Estimated Glomerular Filt Rate 53; Glucose Fasting 206 mg/dL (60-99); HDL Cholesterol 51 mg/dL (>40); LDL Cholesterol Calculated 117 mg/dL (<100); Potassium 3.9 mmol/L (3.3-5.1); Sodium 141 mmol/L (135-145); Total Protein 8.3 g/dL (6.5-8.0); Triglycerides 119 mg/dL (<150)
[2023-07-11 08:22] LABS: TSH reflex Free T4 1.58 uIU/mL (0.32-4.0); Vitamin D 25-OH Total 46.2 ng/mL (>30)
== END 2023-07-11 07:11 | disposition home or self-care (01) ==
LOC: HO.LAB 07:10
PROVIDERS: PCP Internal Medicine; Visit Provider Internal Medicine
DX: E78.00 Pure hypercholesterolemia, unspecified (principal); E11.9 Type 2 diabetes mellitus without complications; I10 Essential (primary) hypertension; E53.8 Deficiency of other specified B group vitamins; E55.9 Vitamin D deficiency, unspecified
CPT/HCPCS: 36415; 80053; 80061; 82306; 82607; 82746; 83036; 84443; 85025

== ENCOUNTER 2023-07-15 07:36 | Outpatient (REF) | payer OTHER, SELFPAY ==
--- NOTE | ~2023-07-15 | XR_ITS ---
EXAMINATION: XR CHEST CLINICAL INFORMATION: Surveillance. History of kidney and small bowel cancer. COMPARISON: Chest 05/27/2022 TECHNIQUE: 2 views of the chest were obtained. FINDINGS: No significant abnormality is noted involving the heart, lungs, mediastinum or soft tissues. There are mild degenerative changes of the thoracic spine. XR/XR chest 2V IMPRESSION: No acute cardiopulmonary disease.
--- NOTE | ~2023-07-15 | CT_ITS ---
EXAMINATION: CT ABDOMEN AND PELVIS WITH CONTRAST CLINICAL INFORMATION: Surveillance for intestinal cancer. History of small bowel cancer. History of kidney cancer. COMPARISON: CT abdomen and pelvis 11/27/2022, 05/27/2022. TECHNIQUE: Multidetector volumetric images were obtained from the superior aspect of the liver through the pubic symphysis following administration 85 mL of Omnipaque 350 intravenous contrast. Sagittal and coronal reformatted images were obtained on the technologist's workstation. Oral contrast: Yes This CT examination was performed using dose optimization techniques as appropriate, variously including the following: *Automated exposure control *Adjustment of mA and/or kV according to patient size (this includes techniques or standardized protocols for targeted exams where dose is matched to indication/reason for exam; i.e. extremities or head) *Use of iterative reconstruction technique DLP: 537 mGy-cm FINDINGS: LUNG BASES: No evidence of metastatic disease. LIVER, GALLBLADDER, AND BILIARY TREE: No focal liver mass to suggest metastatic disease. No biliary ductal dilatation. The gallbladder is unremarkable with no evidence of radiopaque gallstones, gallbladder wall thickening, or obvious pericholecystic inflammatory changes. PANCREAS: No discrete pancreatic mass. No pancreatic ductal dilatation. SPLEEN: Normal size spleen. ADRENAL GLANDS: Postoperative changes around the right adrenal gland. Slight nodular contour to the left adrenal gland is stable. KIDNEYS AND URETERS: Postoperative changes upper pole right kidney without evidence of local recurrence. There are simple density cysts in both kidneys. No follow-up imaging is recommended. BLADDER: Unremarkable. GASTROINTESTINAL TRACT: Small hiatal hernia. The small bowel is normal in caliber. Small bowel anastomosis in the right lower quadrant with no evidence of local recurrence. No mesenteric adenopathy. The appendix appears normal. Sigmoid diverticulosis without evidence of diverticulitis. ABDOMINAL WALL: Postoperative changes. No significant hernia. LYMPH NODES: No adenopathy. VASCULAR: No aortic aneurysm. Mild aortoiliac atherosclerosis. PELVIC VISCERA: Unremarkable. OSSEOUS STRUCTURES: Degenerative changes in the spine. No evidence of metastatic disease. CT/CT abdomen pelvis w IV con IMPRESSION: Postoperative changes right upper kidney and right lower quadrant small bowel anastomosis with no evidence of local recurrence. No evidence of metastatic disease in the abdomen/pelvis. Fleischner guidelines do not apply (oncology patient).
[2023-07-15] MEDS: Barium Sulfate Oral (Berry) 450 ML ORAL.SUSP 900 ML PO (10:01)
[2023-07-15] MEDS: iohexoL 350 MG/ML 100 ML INFUS..BTL IV (10:02)
== END 2023-07-15 07:37 | disposition home or self-care (01) ==
LOC: HO.CT 07:36
PROVIDERS: PCP Internal Medicine; Visit Provider Internal Medicine
DX: C17.9 Malignant neoplasm of small intestine, unspecified (principal)
CPT/HCPCS: 71046; 74177; Q9967

== ENCOUNTER 2023-07-15 07:58 | Outpatient (REF) | payer OTHER, SELFPAY ==
[2023-07-15 08:06] LABS: Appearance Urine Clear; Color Urine Yellow; Glucose Urine UA 500 mg/dL (Negative); Leukocyte Esterase Urine Negative (Negative); Nitrite Urine Negative (Negative); PH 5.5 (5.0-9.0); Specific Gravity - Urine 1.025 (1.005-1.025); Urine Blood Negative (Negative); Urine Ketones Negative (Negative); Urine Protein Negative (Neg-Trace)
== END 2023-07-15 07:59 | disposition home or self-care (01) ==
LOC: HO.LNP 07:58
PROVIDERS: Visit Provider Internal Medicine
DX: R30.0 Dysuria (principal); E11.9 Type 2 diabetes mellitus without complications; C17.9 Malignant neoplasm of small intestine, unspecified
CPT/HCPCS: 81003; 82043; 82570

== ENCOUNTER 2023-08-20 09:08 | Outpatient (AMB) | payer OTHER, SELFPAY ==
--- NOTE | 2023-08-20 09:20 | MHC.OFFVIS ---
Intake Vital Signs 08/20/23 09:26 Height 5 ft 9 in Weight 208 lb 8 oz BMI 30.8 BP 140/74 H Blood Pressure Location Rt brachial Position Sitting Pulse 59 Pulse Source Pulse Oximeter Pulse Oximetry (%) 98 Oxygen Delivery Method Room Air Intake Visit Reasons: 4m f/u Amnesia - CONF Intake Note: Patient presents for 4 month f/u. Allergies No Known Allergies [No Known Allergies*] Allergy (Verified 08/25/23 16:21) HPI HPI Comments History of Present Illness Details 68 y/o male patient presents with his for follow up of memory loss and sleep apnea. The home sleep study result was mild degree of sleep apnea. The AHI was 8/hr and oxygen bucky was 87%. Pt started APAP 5-15 cmH2O. However, his CPAP mask was too big, and [facility] will send new nasal mask soon. Brain MRI result reviewed. Numerous foci of susceptibility artifact in a peripheral distribution may be seen in the setting of underlying cerebral amyloid angiopathy. Clinical correlation is recommended. Mild generalized cerebral volume loss with associated ventricular and sulcal prominence. Mild to moderate chronic microvascular ischemic change. Pt is on donepezil 10 mg, and he feels his memory has improved a little. Pt also started memantine ER 7 mg daily, too. Denies side effects. Pt's reports that patient is not active physically. Pt's last lab result shows that A1C is 7.9. [facility] Medical History (Updated 08/29/23 @ 16:18 by Antonia Holley CNP) Obstructive sleep apnea Overweight (BMI 25.0-29.9) Alzheimer's dementia Depression Vitamin D deficiency Memory impairment Renal cell carcinoma of right kidney Essential hypertension Type 2 diabetes mellitus with unspecified complications H/O malignant neoplasm of small intestine Diverticula of colon Kidney mass Anemia Diabetes Hypertension Surgical History Hx of colonoscopy Hx of kidney removal History of esophagogastroduodenoscopy (EGD) H/O sinus surgery Family History Father No problems noted. Mother Heart disease Pancreas cancer Maternal Grandmother Stomach cancer Social History Household Members: Spouse Housing: Apartment Are you a primary behavioral health care manager to a significant other at home: No Do you presently have visiting nurse or other home services: No Alcohol intake: former Comment: given as premed Patient Tobacco Use Status: Former Tobacco user Tobacco use type: Cigar e-Cigarette/Vaping Use: Never Used Second Hand Smoke Exposure: No service: No Current occupational status: retired Cognitive needs: No Hearing needs: No Vision needs: Yes (glasses) Review of Systems Const All systems reviewed & are unremarkable except as noted in HPI and below ENT Reports Normal hearing present Neuro Reports Normal hearing present Physical Exam Vital Signs: Last Vital Signs Pulse 59 08/20/23 09:26 BP 140/74 H 08/20/23 09:26 Pulse Ox 98 08/20/23 09:26 Oxygen Delivery Method Room Air 08/20/23 09:26 BMI result Body Mass Index 30.8 Const General: cooperative Nutritional Appearance: overweight Orientation/consciousness: oriented to person Limitations: language barrier Neck Neck: Yes full ROM and Yes supple Resp Effort & Inspection: normal respiratory effort and able to speak in complete sentences Neuro General: oriented to person Cranial nerves: Yes Bilaterally intact EOM present, Yes Normal facial strength present, Yes Midline tongue present, Yes Symmetric palate elevation present, Yes Normal hearing present, Yes Ability to bilaterally rotate head present and Yes Ability to bilaterally elevate shoulders present Motor exam (neuro): 5/5 motor strength present throughout, Pronator motor function not present and no tremor noted Psych Appearance: grossly normal Mental Status: mental status grossly normal Speech and movement: Normal speech and movement present Affect: normal affect Attitude: cooperative Assessment & Plan Assessment & Plan (1) Dementia: Code(s): F03.90 - Unspecified dementia, unspecified severity, without behavioral disturbance, psychotic disturbance, mood disturbance, and anxiety (2) Obstructive sleep apnea: Comment: Mild degree of sleep apnea. The AHI was 08/hr and oxygen bucky was 87%. Code(s): G47.33 - Obstructive sleep apnea (adult) (pediatric) Plan Continue to take donepezil 10 mg. Increase memantine 14 mg daily. Advised patient to do daily exercise, walking daily for 30 min. Try to manage blood sugar well. Continue to use APAP at [id number]. Stressed compliance, use CPAP nightly and more than 4 hrs. Coding Level of Care Code Est Pt Level 4 (70780) Diagnoses Dementia F03.90 Obstructive sleep apnea G47.33
[2023-08-20 09:26] VITALS: BP 140/74; PULSE 59; O2SAT 98; BMI 30.8
== END 2023-08-20 09:46 | disposition home or self-care (01) ==
PROVIDERS: PCP Internal Medicine; Visit Provider Nurse Practitioner Family
DX: F03.90 Unspecified dementia, unspecified severity, without behavioral disturbance, psychotic disturbance, mood disturbance, and anxiety (principal); G47.33 Obstructive sleep apnea (adult) (pediatric)
CPT/HCPCS: 99214

== ENCOUNTER → 2023-08-20 09:08 | Outpatient (BNVA) | payer OTHER, SELFPAY | PROVIDERS: PCP Internal Medicine; Visit Provider Nurse Practitioner Family | DX: G47.33 Obstructive sleep apnea (adult) (pediatric) (principal); F03.90 Unspecified dementia, unspecified severity, without behavioral disturbance, psychotic disturbance, mood disturbance, and anxiety | CPT/HCPCS: 99212 ==

== ENCOUNTER 2023-08-25 15:06 | Outpatient (AMB) | payer OTHER, SELFPAY ==
--- NOTE | 2023-08-25 15:22 | MHC.PC.OV ---
Vital Signs 08/25/23 15:24 08/25/23 16:29 Height 5 ft 9 in Weight 207 lb 4 oz BMI 30.6 BP 166/100 H 132/82 Blood Pressure Location Lt brachial Lt brachial Position Sitting Sitting Pulse 73 Pulse Source Pulse Oximeter Pulse Oximetry (%) 98 Oxygen Delivery Method Room Air Intake Visit Reasons: 4M Follow up Flooring Machine Feeder Required: No Accompanied by: Self / Same As Patient Allergies No Known Allergies [No Known Allergies*] Allergy (Verified 08/25/23 16:21) Medication List - Last Reconciled 08/25/23 by Yuri Wilkes MD blood sugar diagnostic (#waywire Ultra Test strips) As directed once a day blood-glucose meter ([employer] Ultra2 Meter kit) As directed cholecalciferol (vitamin D3) 250 mcg PO 2XW 90 days [DIABETIC SHOES (1 pair) As directed] donepezil 10 mg PO BEDTIME 90 days famotidine 20 mg PO BID 90 days hydrochlorothiazide 12.5 mg PO DAILY 90 days lancets ([employer] UltraSoft Lancets) As directed once a day lancets As directed losartan 100 mg PO DAILY 90 days memantine 7 mg PO DAILY 30 days metformin 1,000 mg PO DAILY polyethylene glycol 3350 (Miralax) 17 grams PO DAILY 30 days sertraline 25 mg PO DAILY 90 days [SHOE INSERTS (3 pairs) As directed] Tobacco use date assessed: 08/25/23 Fall risk assessment: No Falls in past year Last assessed Fall Risk: 08/25/23 Dental Screening Dental Screen Date: 08/25/23 Did you have a dental visit in the last 12 months?: Yes Did you have a dental problem in the last 6 months where you did not have access to dental care?: No Was dental information given to patient?: Patient has dentist HPI 4M Follow up HPI Details Patient comes in today for his follow up visit States that he feels okay - is accompanied by his , who helps answer his questions as patient has dementia and may not be able to respond to questions appropriately sometimes Patient denies any headaches or dizziness Denies any chest pains, no SOB No nausea/vomiting, no abdominal pain No change in bowel habits noted Needs his Memantine Rx refilled and his states that he needs a new glucometer as his old unit recently broke down Had his follow up labs done last month - to discuss his results [facility] Medical History (Updated 08/25/23 @ 16:49 by Yuri Wilkes MD) Obstructive sleep apnea Overweight (BMI 25.0-29.9) Alzheimer's dementia Depression Vitamin D deficiency Memory impairment Renal cell carcinoma of right kidney Essential hypertension Type 2 diabetes mellitus with unspecified complications H/O malignant neoplasm of small intestine Diverticula of colon Kidney mass Anemia Diabetes Hypertension Surgical History Hx of colonoscopy Hx of kidney removal History of esophagogastroduodenoscopy (EGD) H/O sinus surgery Family History Father No problems noted. Mother Heart disease Pancreas cancer Maternal Grandmother Stomach cancer Social History Household Members: Spouse Housing: Apartment Are you a primary cardiac care nurse to a significant other at home: No Do you presently have visiting nurse or other home services: No Alcohol intake: former Comment: given as premed Patient Tobacco Use Status: Former Tobacco user Tobacco use type: Cigar e-Cigarette/Vaping Use: Never Used Second Hand Smoke Exposure: No service: No Current occupational status: retired Cognitive needs: No Hearing needs: No Vision needs: Yes (glasses) Questionnaire PHQ-9 Over the last 2 weeks, how often have you been bothered by any of the following problems? 1. Little interest or pleasure in doing things: not at all 2. Feeling down, depressed, or hopeless: not at all 3. Trouble falling or staying asleep, or sleeping too much: not at all 4. Feeling tired or having little energy: not at all 5. Poor appetite or overeating: not at all 6. Feeling bad about yourself - or that you are a failure or have let yourself or your family down: not at all 7. Trouble concentrating on things, such as reading the newspaper or watching television: not at all 8. Moving or speaking so slowly that other people could have noticed. Or the opposite - being so fidgety or restless that you have been moving around a lot more than usual: not at all 9. Thoughts that you would be better off or of hurting yourself in some way: not at all Total score: 0 Depression Screening Interpretation: Negative Depression Screening Done: Yes 70163 - PHQ-9 Billing: Yes Source: Developed by Drs. Ashkan Hennnig, Heena Raphael, Rafiq Cristina and colleagues, with an educational edwige from [employer]. Thrive Questionnaire Date Thrive assessed: 08/25/23 I am a: Patient What is your living situation today?: I have a steady place to live Within the past 12 months, did the food you bought not last and you didn't have the money to get more?: Never true Within the past 12 months, did you worry whether your food would run out before you got money to buy more?: Never true Do you have trouble paying for medicines?: No Do you have trouble getting transportation to medical appointments?: No Do you have trouble paying your heating and electricity bill?: No Do you have trouble taking care of your child, family member or friend?: No Do you have trouble with day-to-day activities such as bathing, preparing meals, shopping, managing finances, etc.?: No Are you currently unemployed and looking for a job?: No Are you interested in more education?: No Please select the resources that you would like help with: None Currently or been in a relationship where the following occur: no concerns reported THRIVE Score: 0 AUDIT C Alcohol Use Questionnaire (AUDIT-C) 1. How often do you have a drink containing alcohol?: Never 3. How often do you have six or more drinks on one occasion?: Never Total Score: 0 Score Reviewed/Action Taken: Yes LAURA-7 AMB Questionnaire LAURA-7 Date LAURA - 7 assessed: 08/25/23 Feeling nervous, anxious, or on edge: 0 = Not at all Not being able to stop or control worryin = Not at all Worrying too much about different things: 0 = Not at all Trouble relaxin = Not at all Being so restless that it is hard to sit still: 0 = Not at all Becoming easily annoyed or irritable: 0 = Not at all Feeling afraid as if something awful might happen: 0 = Not at all Total LAURA-7 score (0-4 normal; 5-9 mild; 10-14 moderate; 15-21 severe): 0 Source: Developed by Drs. Ashkan Henning, Heena Raphael, Rafiq Cristina and colleagues, with an educational edwige from [employer]. Review of Systems Const Denies chills, Denies difficulty sleeping (sleeping better with his CPAP device), Denies fatigue, Denies fever(s) and Denies headache(s) ENT Denies dysphagia, Denies dizziness, Denies otalgia, Denies headache(s), Denies neck pain, Denies odynophagia and Denies sore throat Card Denies chest pain, Denies palpitations and Denies dyspnea Resp Denies chest congestion, Denies cough, Denies dyspnea and Denies wheezing GI Denies abdominal pain, Denies constipation (better controlled on Rx), Denies dysphagia, Denies heartburn, Denies diarrhea, Denies nausea, Denies odynophagia and Denies vomiting Denies dysuria, Denies nocturia and Denies urinary frequency Musc Denies back pain and Denies neck pain Skin/Breast Denies rash Neuro Denies behavioral changes, Reports confusion (on and off), Denies dizziness, Denies headache(s) and Reports memory loss (very forgetful) Psych Denies behavioral changes, Reports confusion (on and off) and Reports memory loss (very forgetful) Endo Denies fatigue and Denies palpitations Aller/Immun Denies wheezing Physical exam (Primary Care) Vital Signs: Last Vital Signs Pulse 73 08/25/23 15:24 BP 166/100 H 08/25/23 15:24 Pulse Ox 98 08/25/23 15:24 Oxygen Delivery Method Room Air 08/25/23 15:24 BMI result Body Mass Index 30.6 Tobacco/Smoking Status: Tobacco use Status Tobacco use date assessed 08/25/23 08/25/23 15:24 Patient Tobacco Use Status Former Tobacco user 08/25/23 15:24 Tobacco use type Cigar 08/25/23 15:24 e-Cigarette/Vaping Use Never Used 08/25/23 15:24 PHQ-9: PHQ-9 Score PHQ-9: Total score 0 08/25/23 16:22 Depression Screening Interpretation: Negative Thrive Assessment: Date of Thrive Assessment Date Thrive assessed 08/25/23 08/25/23 15:24 Currently or been in a relationship where the following occur: no concerns reported Const General: confusion (on and off) Orientation/consciousness: confusion (on and off) HENMT Ears: TM's normal bilaterally and EAC's normal Throat: Yes posterior oropharynx normal and Yes tonsils normal (no TP congestion) Neck Neck: Yes no lymphadenopathy and Yes supple Resp Auscultation: clear to auscultation bilaterally, no rales and no wheezes Cardio Rate: regular rate Rhythm: regular rhythm Heart sounds: no murmurs GI Palpation (GI): Soft to palpation and nontender Auscultation: normal bowel sounds General: Yes no CVA tenderness Back/Spine/Pelvis Back: no CVA tenderness Skin Rashes: no rashes Neuro General: confusion (on and off) Gait exam (Neuro): Normal gait present Extrem General: Yes no clubbing, cyanosis or edema Results Reviewed Results Reviewed: Laboratory Tests 07/11/23 07/11/23 07/11/23 07:22 07:22 07:22 WBC 9.7 Hgb 16.2 Hct 47.4 Plt Count 306 Sodium 141 Potassium 3.9 Creatinine 1.35 Estimated GFR 53 Fasting Glucose 206 H Hemoglobin A1c % 7.9 H Calcium 10.3 H AST 19 ALT 28 Triglycerides 119 Cholesterol 191 LDL Cholesterol, Calc 117 H HDL Cholesterol 51 Vitamin B12 436 25-OH Vitamin D Total 46.2 TSH 1.58 Ur Specific [place] Urine Protein Urine Glucose (UA) Urine Blood Urine Nitrite Ur Leukocyte Esterase Microalb/Creat Ratio 07/15/23 07/15/23 07/15/23 07:00 07:00 07:00 WBC Hgb Hct Plt Count Sodium Potassium Creatinine Estimated GFR Fasting Glucose Hemoglobin A1c % Calcium AST ALT Triglycerides Cholesterol LDL Cholesterol, Calc HDL Cholesterol Vitamin B12 25-OH Vitamin D Total TSH Ur Specific [place] 1.025 Urine Protein Negative Urine Glucose (UA) 500 H Urine Blood Negative Urine Nitrite Negative Ur Leukocyte Esterase Negative Microalb/Creat Ratio 4.0 Assessment and Plan Assessment & Plan (1) Alzheimer's dementia: Code(s): G30.9 - Alzheimer's disease, unspecified; F02.80 - Dementia in other diseases classified elsewhere, unspecified severity, without behavioral disturbance, psychotic disturbance, mood disturbance, and anxiety Qualifiers: Alzheimer's disease onset: unspecified onset Dementia severity: unspecified severity Dementia behavioral or psychological symptom: without behavioral, psychotic, or mood disturbance or anxiety Qualified Code(s): G30.9 - Alzheimer's disease, unspecified; F02.80 - Dementia in other diseases classified elsewhere, unspecified severity, without behavioral disturbance, psychotic disturbance, mood disturbance, and anxiety Plan: CT head done in 2020 revealed (+) mild to moderate frontoparietal cortical atrophy Continue Donepezil 10 mg QD and Memantine 7 mg QD (Rx refilled) Patient used to see Dr. Bradley for neurology follow up but switched over to [facility] a few months ago Repeat brain MRI done back in June 2023 revealed (+) mild to moderate cerebral volume loss with associated ventricular and sulcal prominence and mild to moderate chronic microvascular ischemic changes. There were also findings suggestive of cerebral amyloid angiopathy Follow up with neurology as scheduled (2) Type 2 diabetes mellitus with unspecified complications: Code(s): E11.8 - Type 2 diabetes mellitus with unspecified complications Plan: Results of his labs done last month reviewed and discussed with patient and his His HgbA1c was at 7.9% on his labs done last month (was at 7.5% a few months ago) - goal is at least < 7.0% Reinforced diabetic diet - have again advised his family to help him with this and take charge of his diet as patient would not be able to do this on his own due to his dementia Continue Metformin 1000 mg QD for now but discussed that we may need to increase this to BID dosing if his glycemic control continues to go up Rx for a new glucometer sent to his pharmacy, per request (3) Essential hypertension: Code(s): I10 - Essential (primary) hypertension Plan: Reinforced low sodium diet - goal is systolic BP of at least 130 mm or less Continue Losartan 100 mg QD and HCTZ 12.5 mg QD; used to also take Amlodipine 2.5 mg QD but this was discontinued a few months ago and he has been doing well since His initial BP was very high but repeat BP came back normal (4) Renal cell carcinoma of right kidney: Comment: Clear cell carcinoma, pathological staging pT1a pNx Code(s): C64.1 - Malignant neoplasm of right kidney, except renal pelvis Plan: S/P partial nephrectomy on 12/27/2020 - tumor was limited to the kidney, with nosarcomatoid features, no tumor necrosis or lymphovascular invasion and margins are negative Follow up with urology as scheduled for continuing surveillance (5) 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, AJCC stage III S/P small bowel resection (distal jejunum, proximal ileum and mesentery) and primary small bowel anastomosis on 02/23/2020 Completed adjuvant chemotherapy with modified FOLFOX regimen from 03/2020 to September 2020 Code(s): Z85.068 - Personal history of other malignant neoplasm of small intestine Plan: Follow up with oncology and GI as scheduled for continuing surveillance and monitoring (6) Gastritis: Code(s): K29.70 - Gastritis, unspecified, without bleeding Qualifiers: Gastritis type: unspecified gastritis Chronicity: unspecified Gastritis bleeding: without bleeding Qualified Code(s): K29.70 - Gastritis, unspecified, without bleeding Plan: Dietary restrictions reinforced His previous abdominal symptoms have improved with Rx Continue Famotidine 20 mg BID PRN (7) Obstructive sleep apnea: Code(s): G47.33 - Obstructive sleep apnea (adult) (pediatric) Plan: Patient had a home sleep study done in July 2023 that revealed mild JACI He was recommended to try an oral device first prior to transitioning to AutoPap recommended at 5 to 15 cm H2O Follow up with Sleep Medicine as scheduled (8) Vitamin D deficiency: Code(s): E55.9 - Vitamin D deficiency, unspecified Plan: Continue Vitamin D3 250 mcg 2 times a week Will recheck his Vitamin D level in 4 months for follow up (9) Depression: Code(s): F32.A - Depression, unspecified Qualifiers: Depression Type: major depressive disorder Major depression recurrence: recurrent Active/Remission status: currently active Major depression episode severity: unspecified Qualified Code(s): F33.9 - Major depressive disorder, recurrent, unspecified Plan: Continue Sertraline 25 mg QD (10) Overweight (BMI 25.0-29.9): Code(s): E66.3 - Overweight Plan: Reinforced diet; exercise and weight loss are not realistic but have encouraged patient (and his family to help him) stay active as much as he can Plan Follow up in 4 months Orders: Orders Lipid Panel 4 Months E78.00 - Pure hypercholesterolemia, unspecified Hemoglobin A1c 4 Months E11.9 - Type 2 diabetes mellitus without complications UA CC w/rflx Micro + Cult 4 Months R30.0 - Dysuria Microalbumin, Random (w Creat) 4 Months E11.9 - Type 2 diabetes mellitus without complications Complete Blood Count Auto Diff 4 Months D64.9 - Anemia, unspecified Comprehensive [place]. Panel Fast 4 Months E78.00 - Pure hypercholesterolemia, unspecified TSH reflex Free T4 4 Months E78.00 - Pure hypercholesterolemia, unspecified Vitamin D 25-OH Total 4 Months E55.9 - Vitamin D deficiency, unspecified Vitamin B12 and Folate 4 Months E53.8 - Deficiency of other specified B group vitamins Medications: Changed From blood-glucose meter (#[employer] Ultra2 Meter kit) As directed 1 ea 0RF E11.8 - Type 2 diabetes mellitus with unspecified complications To blood-glucose meter As directed 1 ea 0RF E11.8 - Type 2 diabetes mellitus with unspecified complications Refilled memantine 7 mg PO DAILY 30 days 30 ea 0RF Coding Level of Care Code Est Pt Level 4 (52470) Diagnoses Alzheimer's dementia without behavioral disturbance, psychotic disturbance, mood disturbance, or anxiety, unspecified dementia severity, unspecified timing of dementia onset G30.9; F02.80 Alzheimer's disease onset: unspecified onset Dementia severity: unspecified severity Dementia behavioral or psychological symptom: without behavioral, psychotic, or mood disturbance or anxiety Type 2 diabetes mellitus with unspecified complications E11.8 Essential hypertension I10 Renal cell carcinoma of right kidney C64.1 H/O malignant neoplasm of small intestine Z85.068 Gastritis without bleeding, unspecified chronicity, unspecified gastritis type K29.70 Gastritis type: unspecified gastritis Chronicity: unspecified Gastritis bleeding: without bleeding Obstructive sleep apnea G47.33 Vitamin D deficiency E55.9 Episode of recurrent major depressive disorder, unspecified depression episode severity F33.9 Depression Type: major depressive disorder Major depression recurrence: recurrent Active/Remission status: currently active Major depression episode severity: unspecified Overweight (BMI 25.0-29.9) E66.3
[2023-08-25 15:24] VITALS: BP 166/100; PULSE 73; O2SAT 98; BMI 30.6
[2023-08-25 16:29] VITALS: BP 132/82
== END 2023-08-25 16:35 | disposition home or self-care (01) ==
PROVIDERS: PCP Internal Medicine; Visit Provider Internal Medicine
DX: E11.8 Type 2 diabetes mellitus with unspecified complications (principal); G30.9 Alzheimer's disease, unspecified; F02.80 Dementia in other diseases classified elsewhere, unspecified severity, without behavioral disturbance, psychotic disturbance, mood disturbance, and anxiety; C64.1 Malignant neoplasm of right kidney, except renal pelvis; F33.9 Major depressive disorder, recurrent, unspecified; I10 Essential (primary) hypertension; Z85.068 Personal history of other malignant neoplasm of small intestine; K29.70 Gastritis, unspecified, without bleeding; G47.33 Obstructive sleep apnea (adult) (pediatric); E55.9 Vitamin D deficiency, unspecified; E66.3 Overweight
CPT/HCPCS: 99214

== ENCOUNTER 2023-12-16 10:20 | Outpatient (AMB) | payer OTHER, SELFPAY ==
--- NOTE | 2023-12-16 10:37 | A.OFFVIS_ITS ---
Vital Signs 12/16/23 10:43 Height 5 ft 9 in Weight 199 lb 2 oz BMI 29.4 BP 130/80 Blood Pressure Location Lt brachial Position Sitting Pulse 69 Pulse Source Pulse Oximeter Pulse Oximetry (%) 98 Oxygen Delivery Method Room Air Intake Visit Reasons: 4m f/u Amnesia-Conf Intake Note: Patient presents for 4 months f/u. Having trouble sleeping. Only sleeping 3 hrs a day and no naps. Allergies No Known Allergies [No Known Allergies*] Allergy (Verified 12/16/23 10:42) Medication List - Last Reconciled 12/16/23 by AUGUSTIN Garcia blood sugar diagnostic (KuldatTouch Ultra Test strips) As directed once a day blood-glucose meter ([employer]uch Ultra2 Meter) As directed cholecalciferol (vitamin D3) 250 mcg PO 2XW 90 days [Commode As directed] [DIABETIC SHOES (1 pair) As directed] donepezil 5 mg PO BEDTIME 30 days famotidine 20 mg PO BID 90 days hydrochlorothiazide 12.5 mg PO DAILY 90 days lancets (KuldatTouch UltraSoft Lancets) As directed once a day lancets As directed losartan 100 mg PO DAILY 90 days melatonin 9 mg (3 x 3 mg) PO BEDTIME 30 days melatonin ER 3 - 6 mg orally QHS; 30 days memantine 14 mg PO DAILY 30 days metformin 1,000 mg PO DAILY polyethylene glycol 3350 (Miralax) 17 grams PO DAILY 30 days [SHOE INSERTS (3 pairs) As directed] HPI Comments Details: 68-yr-old male presents for f/u visit, accompanied by his , Sylvia. Pt denies any significant interval medical changes. Pt has not been sleeping well- only about 3 hrs per night. He is not tolerating his CPAP- he cannot say why. His JACI is mild w/ AHI 7.5/hr per HST. Before bedtime, she gives him a warm bath, a glass of water. helps him to go to bed around 9-9:30pm. Once he falls asleep, he wakes up a couple of hours later, and then wakes up every hour throughout the night. is trying to keep him up and active through the day, takes him for walks outside. He is not taking naps. has tried giving him Melatonin3-6mg qhs- but this is not helping much. She is wary to give any medication that may affect the kidneys- thus previously did not have pt try the trazodone (though this is primarily metabolozed by the liver). We recently decreased donepazil from 10mg to 5mg qd d/t GI upset and anorexia- which helped to reduce thsoe s/s. He has had memory issues since he underwent chemotherapy for colon cancer stopped 4 yrs ago- and since this has progressed. Pt cognitive symptoms are worse in the evening- he is confused at night. He deneis family h/o early onset dementia on his mother's side, and does not know his father's side. 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 Previous brain MRI: 06/2023 MR/MR head/brain wo con IMPRESSION: Numerous foci of susceptibility artifact in a peripheral distribution may be seen in the setting of underlying cerebral amyloid angiopathy. Clinical correlation is recommended. Mild generalized cerebral volume loss with associated ventricular and sulcal prominence. Mild to moderate chronic microvascular ischemic change. [facility]LY [facility] Medical History (Updated 12/16/23 @ 12:45 by AUGUSTIN Garcia) Obstructive sleep apnea Overweight (BMI 25.0-29.9) Alzheimer's dementia Depression Vitamin D deficiency Memory impairment Renal cell carcinoma of right kidney Essential hypertension Type 2 diabetes mellitus with unspecified complications H/O malignant neoplasm of small intestine Diverticula of colon Kidney mass Anemia Diabetes Hypertension Surgical History Hx of colonoscopy Hx of kidney removal History of esophagogastroduodenoscopy (EGD) H/O sinus surgery Family History Father No problems noted. Mother Heart disease Pancreas cancer Maternal Grandmother Stomach cancer Social History Household Members: Spouse Housing: Apartment Are you a primary daycare director to a significant other at home: No Do you presently have visiting nurse or other home services: No Alcohol intake: former Comment: given as premed Patient Tobacco Use Status: Former Tobacco user Tobacco use type: Cigar e-Cigarette/Vaping Use: Never Used Second Hand Smoke Exposure: No service: No Current occupational status: retired Cognitive needs: No Hearing needs: No Vision needs: Yes (glasses) Review of Systems Const All systems reviewed & are unremarkable except as noted in HPI and below Physical Exam Vital Signs: Last Vital Signs Pulse 69 12/16/23 10:43 BP 130/80 12/16/23 10:43 Pulse Ox 98 12/16/23 10:43 Oxygen Delivery Method Room Air 12/16/23 10:43 BMI result Body Mass Index 29.4 Const General: cooperative and no acute distress HEENT Head: Yes normocephalic Resp Effort & Inspection: normal respiratory effort and able to speak in complete sentences Neuro Other: Pt is alert w/ STM lapses. He does not engage in conversation unless spoken to directly. He provides short, but appropriate answers. Pleasant affcet, but expression is dulled. General: gait normal and CN's II-XI intact bilaterally Motor exam (neuro): 5/5 motor strength present throughout Psych Appearance: grossly normal Speech and movement: Normal speech and movement present Attitude: cooperative Thought content: Normal thought content present Insight: Good insight present (Psych) Judgement: Good judgement present (Psych) Assessment & Plan Assessment & Plan (1) Dementia: Code(s): F03.90 - Unspecified dementia, unspecified severity, without behavioral disturbance, psychotic disturbance, mood disturbance, and anxiety Category: Medical (2) Abnormal brain MRI: Code(s): R90.89 - Other abnormal findings on diagnostic imaging of central nervous system Category: Medical (3) Obstructive sleep apnea: Comment: Mild degree of sleep apnea. The AHI was 08/hr and oxygen bucky was 87%. Code(s): G47.33 - Obstructive sleep apnea (adult) (pediatric) Category: Medical (4) Sleep difficulties: Code(s): G47.9 - Sleep disorder, unspecified Category: Medical Plan Reviewed previous Brain MRI w/o- Numerous foci of susceptibility artifact in a peripheral distribution may be seen in the setting of underlying cerebral amyloid angiopathy. Mild generalized cerebral volume loss with associated ventricular and sulcal prominence. Mild to moderate chronic microvascular ischemic change. Will request f/u brain MRI w/wo- to assess status of intracerebral foci of susceptibility artifact, suggestive of cerebral amyloid angiopthy. Check Brain MRA w/o Will check additional labs for underlying causes of progressive cognitive decline, including a serum autoimmune encephalitis panel- as pt's s/s started prior to the age of 67. Will request comprehensive neuro-psych evaluation. Pt is fluent in Serbian. Pt may continue Melatonin- trial Melatonin 3mg q evening and 6mg qhs. Continue Donepazil 5mg qd- decreased from 10mg d/t GI upset and anorexia. Continue Memantine ER 14mg qd. Encourage PAP use, however sleep apnea is mild so we do not have to force pt to use it. Continue engaging pt in daily exercise, as well as cognitive and socially stimulating activities. Continue optimized sleep hygiene practices. f/u upon review of above and in 6 months or sooner prn. Orders: Orders Methylmalonic Acid Today D64.9 - Anemia, unspecified, E78.5 - Hyperlipidemia, unspecified, F03.90 - Unspecified dementia, unspecified severity, without behavioral disturbance, psychotic disturbance, mood disturbance, and anxiety Rheumatoid Factor Today D64.9 - Anemia, unspecified, E78.5 - Hyperlipidemia, unspecified, F03.90 - Unspecified dementia, unspecified severity, without behavioral disturbance, psychotic disturbance, mood disturbance, and anxiety Creatine Kinase Total Today D64.9 - Anemia, unspecified, E78.5 - Hyperlipidemia, unspecified, F03.90 - Unspecified dementia, unspecified severity, without behavioral disturbance, psychotic disturbance, mood disturbance, and anxiety HIV Ab/Ag Today D64.9 - Anemia, unspecified, E78.5 - Hyperlipidemia, unspecified, F03.90 - Unspecified dementia, unspecified severity, without behavioral disturbance, psychotic disturbance, mood disturbance, and anxiety Syphilis Screen Today D64.9 - Anemia, unspecified, E78.5 - Hyperlipidemia, un specified, F03.90 - Unspecified dementia, unspecified severity, without behavioral disturbance, psychotic disturbance, mood disturbance, and anxiety Other Ref Test - Misc Today D64.9 - Anemia, unspecified, E78.5 - Hyperlipidemia, unspecified, F03.90 - Unspecified dementia, unspecified severity, without behavioral disturbance, psychotic disturbance, mood disturbance, and anxiety Erythrocyte Sedimentation Rate Today D64.9 - Anemia, unspecified, E78.5 - Hyperlipidemia, unspecified, F03.90 - Unspecified dementia, unspecified severity, without behavioral disturbance, psychotic disturbance, mood disturbance, and anxiety [place] Reflex Titer and Pattern Today D64.9 - Anemia, unspecified, E78.5 - Hyperlipidemia, unspecified, F03.90 - Unspecified dementia, unspecified severity, without behavioral disturbance, psychotic disturbance, mood disturbance, and anxiety Homocysteine Today D64.9 - Anemia, unspecified, E78.5 - Hyperlipidemia, unspecified, F03.90 - Unspecified dementia, unspecified severity, without behavioral disturbance, psychotic disturbance, mood disturbance, and anxiety Acetylcholine Receptor Binding Today D64.9 - Anemia, unspecified, E78.5 - Hyperlipidemia, unspecified, F03.90 - Unspecified dementia, unspecified severity, without behavioral disturbance, psychotic disturbance, mood disturbance, and anxiety CRP High Sensitivity Today D64.9 - Anemia, unspecified, E78.5 - Hyperlipidemia, unspecified, F03.90 - Unspecified dementia, unspecified severity, without behavioral disturbance, psychotic disturbance, mood disturbance, and anxiety MR head/brain wo/w con Today F03.90 - Unspecified dementia, unspecified severity, without behavioral disturbance, psychotic disturbance, mood disturbance, and anxiety, R90.89 - Other abnormal findings on diagnostic imaging of central nervous system MR angio head wo con Today F03.90 - Unspecified dementia, unspecified severity, without behavioral disturbance, psychotic disturbance, mood disturbance, and anxiety, R90.89 - Other abnormal findings on diagnostic imaging of central nervous system Referrals Neuropsychiatry Referral F03.90 - Unspecified dementia, unspecified severity, without behavioral disturbance, psychotic disturbance, mood disturbance, and anxiety Coding Level of Care Code Est Pt Level 4 (31984) Diagnoses Dementia F03.90 Abnormal brain MRI R90.89 Obstructive sleep apnea G47.33 Sleep difficulties G47.9
[2023-12-16 10:43] VITALS: BP 130/80; PULSE 69; O2SAT 98; BMI 29.4
== END 2023-12-16 11:35 | disposition home or self-care (01) ==
PROVIDERS: PCP Internal Medicine; Visit Provider Nurse Practitioner Family
DX: F03.90 Unspecified dementia, unspecified severity, without behavioral disturbance, psychotic disturbance, mood disturbance, and anxiety (principal); R90.89 Other abnormal findings on diagnostic imaging of central nervous system; G47.33 Obstructive sleep apnea (adult) (pediatric); G47.9 Sleep disorder, unspecified
CPT/HCPCS: 99214

== ENCOUNTER → 2023-12-16 10:20 | Outpatient (BNVA) | payer OTHER, SELFPAY | PROVIDERS: PCP Internal Medicine; Visit Provider Nurse Practitioner Family | DX: R90.89 Other abnormal findings on diagnostic imaging of central nervous system (principal); F03.90 Unspecified dementia, unspecified severity, without behavioral disturbance, psychotic disturbance, mood disturbance, and anxiety; G47.33 Obstructive sleep apnea (adult) (pediatric); G47.9 Sleep disorder, unspecified | CPT/HCPCS: 82550; 83921; 85652; 86038; 86041; 86141; 86431; 86780; 87389; 99212 ==

== ENCOUNTER 2023-12-16 11:40 | Outpatient (REF) | payer OTHER, SELFPAY ==
[2023-12-16 18:49] LABS: Rheumatoid Factor < 13.0 IU/mL (<15.0)
[2023-12-16 18:52] LABS: Erythrocyte Sedimentation Rate 11 MM/HR (0-15)
[2023-12-17 08:22] LABS: Syphilis Screen Nonreactive (Nonreactive)
[2023-12-17 08:27] LABS: HIV AB/AG Nonreactive (Nonreactive); HIV Num 1 0.08 S/CO (0.00-0.99)
[2023-12-19 00:48] LABS: CRP High Sensitivity 0.4 mg/L
[2023-12-22 09:42] LABS: Methylmalonic Acid 155 nmol/L (87-318)
[2023-12-22 15:28] LABS: Anti Nuclear Antibody Screen NEGATIVE (NEGATIVE)
[2023-12-25 16:04] LABS: Acetylcholine Receptor Binding <0.30 nmol/L
== END 2023-12-16 11:41 | disposition home or self-care (01) ==
LOC: HO.HKASLDS 11:40
PROVIDERS: Visit Provider Nurse Practitioner Family
DX: Z13.89 Encounter for screening for other disorder (principal)
CPT/HCPCS: 82550; 83921; 85652; 86038; 86041; 86141; 86431; 86780; 87389

== ENCOUNTER 2023-12-22 08:32 | Outpatient (REF) | payer OTHER, SELFPAY ==
[2023-12-22 08:45] LABS: MANUAL DIFF FLAG NO
[2023-12-22 09:30] LABS: Basophils Percent Auto 0.4 % (0-2); Eosinophils Absolute Auto 0.1 X10*3/uL (0.0-0.4); Eosinophils Percent Auto 0.8 % (0-4); Hematocrit 46.3 % (42.0-52.0); Hemoglobin 16.3 g/dl (14.0-18.0); Imm Gran Abs Auto 0.03 X10*3/uL (0.00-0.03); Imm Gran Pct Auto 0.3 % (0.0-0.4); Lymphocytes Absolute Auto 2.4 X10*3/uL (1.2-4.9); Lymphocytes Percent Auto 22.9 % (20-40); Mean Corpuscular HGB Conc 35.2 g/dl (31.0-36.0); Mean Corpuscular Hemoglobin 30.3 pg (27.0-33.0); Mean Corpuscular Volume 86.1 fL (80.0-98.0); Mean Platelet Volume 9.3 fL (9.4-12.4); Monocytes Absolute Auto 0.7 X10*3/uL (0.1-1.2); Monocytes Percent Auto 6.3 % (2-11); Neutrophils Absolute Auto 7.2 x10*3/uL (2.0-8.3); Neutrophils Percent Auto 69.3 % (45-73); Platelet Count 320 X10*3/uL (160-400); Red Blood Count 5.38 X10*6/uL (4.60-5.80); Red Cell Distribution Width 12.4 % (11.0-16.0); White Blood Count 10.3 X10*3/uL (4.8-10.8)
[2023-12-22 09:40] LABS: Estimated Average Glucose 186 mg/dL; Hemoglobin A1c % 8.1 % (<6.0)
[2023-12-22 10:06] LABS: Alanine Aminotransferase 16 U/L (0-40); Albumin Level 4.4 g/dL (3.5-5.0); Alkaline Phosphatase 83 U/L (39-117); Anion Gap 12 (12-20); Aspartate Amino Transferase 14 U/L (5-37); Bilirubin Total 0.8 mg/dL (0.0-1.0); Blood Urea Nitrogen 18 mg/dL (9-16); Calcium 10.1 mg/dL (8.4-10.2); Carbon Dioxide 27 mmol/L (22-29); Chloride 105 mmol/L (96-108); Cholesterol 177 mg/dL (<200); Estimated Glomerular Filt Rate > 60; Glucose Fasting 185 mg/dL (60-99); HDL Cholesterol 44 mg/dL (>40); LDL Cholesterol Calculated 108 mg/dL (<100); Potassium 3.8 mmol/L (3.3-5.1); Sodium 140 mmol/L (135-145); Total Protein 7.9 g/dL (6.5-8.0); Triglycerides 128 mg/dL (<150)
[2023-12-22 10:23] LABS: TSH reflex Free T4 1.09 uIU/mL (0.32-4.0); Vitamin D 25-OH Total 44.7 ng/mL (>30)
[2023-12-22 10:54] LABS: Folate 8.6 ng/mL (> or = 4.0); Vitamin B12 586 pg/mL (200-900)
== END 2023-12-22 08:33 | disposition home or self-care (01) ==
LOC: HO.LAB 08:32
PROVIDERS: Absent Provider Internal Medicine; PCP Internal Medicine; Visit Provider Nurse Practitioner Family
DX: D64.9 Anemia, unspecified (principal); E11.9 Type 2 diabetes mellitus without complications; E78.00 Pure hypercholesterolemia, unspecified; E55.9 Vitamin D deficiency, unspecified; E53.8 Deficiency of other specified B group vitamins
CPT/HCPCS: 36415; 80053; 80061; 82306; 82607; 82746; 83036; 84443; 85025

== ENCOUNTER 2023-12-24 13:39 | Outpatient (AMB) | payer OTHER, SELFPAY ==
[2023-12-24 13:49] VITALS: BP 132/74; PULSE 63; O2SAT 97; BMI 29.2
--- NOTE | 2023-12-24 13:49 | MHC.PC.OV ---
Vital Signs 12/24/23 13:49 Height 5 ft 9 in Weight 198 lb 0.6 oz BMI 29.2 BP 132/74 Blood Pressure Location Lt brachial Position Sitting Pulse 63 Pulse Source Pulse Oximeter Pulse Oximetry (%) 97 Oxygen Delivery Method Room Air Intake Visit Reasons: hyperlipidemia, HTN, JACI, dementia, DM Institutional Research Director Required: No Allergies No Known Allergies [No Known Allergies*] Allergy (Verified 12/24/23 14:25) Medication List - Last Reconciled 12/24/23 by Yuri Wilkes MD blood sugar diagnostic (Buzzerouch Ultra Test strips) As directed once a day blood-glucose meter ([employer]fter Ultra2 Meter) As directed cholecalciferol (vitamin D3) 250 mcg PO 2XW 90 days [Commode As directed] [DIABETIC SHOES (1 pair) As directed] donepezil 5 mg PO BEDTIME 30 days famotidine 20 mg PO BID 90 days hydrochlorothiazide 12.5 mg PO DAILY 90 days lancets (Buzzerouch UltraSoft Lancets) As directed once a day lancets As directed losartan 100 mg PO DAILY 90 days melatonin 9 mg (3 x 3 mg) PO BEDTIME 30 days melatonin ER 3 - 6 mg orally QHS; 30 days memantine 14 mg PO DAILY 30 days metformin 1,000 mg PO DAILY polyethylene glycol 3350 (Miralax) 17 grams PO DAILY 30 days [SHOE INSERTS (3 pairs) As directed] Tobacco use date assessed: 12/24/23 Fall risk assessment: No Falls in past year Last assessed Fall Risk: 12/24/23 Dental Screening Dental Screen Date: 08/25/23 HPI hyperlipidemia, HTN, JACI, dementia, DM HPI Details Patient comes in today for his follow up visit States that he feels okay - he is again accompanied by his , who helps answer his questions as patient has dementia and may not be able to respond to questions appropriately sometimes Patient denies any headaches or dizziness Denies any chest pains, no SOB No nausea/vomiting, no abdominal pain No change in bowel habits noted He had his follow up labs done a couple of days ago - to discuss his results FORMERLY [facility] Medical History Obstructive sleep apnea Overweight (BMI 25.0-29.9) Alzheimer's dementia Depression Vitamin D deficiency Memory impairment Renal cell carcinoma of right kidney Essential hypertension Type 2 diabetes mellitus with unspecified complications H/O malignant neoplasm of small intestine Diverticula of colon Kidney mass Anemia Diabetes Hypertension Surgical History Hx of colonoscopy Hx of kidney removal History of esophagogastroduodenoscopy (EGD) H/O sinus surgery Family History Father No problems noted. Mother Heart disease Pancreas cancer Maternal Grandmother Stomach cancer Social History Household Members: Spouse Housing: Apartment Are you a primary technical healthcare consultant to a significant other at home: No Do you presently have visiting nurse or other home services: No Alcohol intake: former Comment: given as premed Patient Tobacco Use Status: Former Tobacco user Tobacco use type: Cigar e-Cigarette/Vaping Use: Never Used Second Hand Smoke Exposure: No service: No Current occupational status: retired Cognitive needs: No Hearing needs: No Vision needs: Yes (glasses) Questionnaire Thrive Questionnaire Date Thrive assessed: 08/25/23 LAURA-7 AMB Questionnaire LAURA-7 Date LAURA - 7 assessed: 08/25/23 Source: Developed by Drs. Ashkan Henning, Heena Raphael, Rafiq Cristina and colleagues, with an educational edwige from [employer]. Review of Systems Const Denies chills, Denies difficulty sleeping (sleeping better with his CPAP device), Denies fatigue, Denies fever(s) and Denies headache(s) ENT Denies dysphagia, Denies dizziness, Denies otalgia, Denies headache(s), Denies neck pain, Denies odynophagia and Denies sore throat Card Denies chest pain, Denies palpitations and Denies dyspnea Resp Denies chest congestion, Denies cough, Denies dyspnea and Denies wheezing GI Denies abdominal pain, Denies constipation (better controlled on Rx), Denies dysphagia, Denies heartburn, Denies diarrhea, Denies nausea, Denies odynophagia and Denies vomiting Denies dysuria, Denies nocturia and Denies urinary frequency Musc Denies back pain and Denies neck pain Skin/Breast Denies rash Neuro Denies behavioral changes, Reports confusion (on and off), Denies dizziness, Denies headache(s) and Reports memory loss (very forgetful) Psych Denies behavioral changes, Reports confusion (on and off) and Reports memory loss (very forgetful) Endo Denies fatigue and Denies palpitations Aller/Immun Denies wheezing Physical exam (Primary Care) Vital Signs: Last Vital Signs Pulse 63 12/24/23 13:49 BP 132/74 12/24/23 13:49 Pulse Ox 97 12/24/23 13:49 Oxygen Delivery Method Room Air 12/24/23 13:49 BMI result Body Mass Index 29.2 Tobacco/Smoking Status: Tobacco use Status Tobacco use date assessed 12/24/23 12/24/23 13:49 Patient Tobacco Use Status Former Tobacco user 12/24/23 13:49 Tobacco use type Cigar 12/24/23 13:49 e-Cigarette/Vaping Use Never Used 12/24/23 13:49 Thrive Assessment: Date of Thrive Assessment Date Thrive assessed 08/25/23 12/24/23 13:49 Const General: comfortable, no acute distress and confusion (on and off) Orientation/consciousness: confusion (on and off) HENMT Ears: TM's normal bilaterally and EAC's normal Throat: Yes posterior oropharynx normal and Yes tonsils normal (no TP congestion) Neck Neck: Yes no lymphadenopathy and Yes supple Thyroid: Thyroid normal Resp Auscultation: clear to auscultation bilaterally, no rales and no wheezes Cardio Rate: regular rate Rhythm: regular rhythm Heart sounds: no murmurs GI Palpation (GI): Soft to palpation and nontender Auscultation: normal bowel sounds General: Yes no CVA tenderness Back/Spine/Pelvis Back: no CVA tenderness Skin Rashes: no rashes Neuro General: confusion (on and off) Extrem General: Yes no clubbing, cyanosis or edema Results Reviewed Results Reviewed: Laboratory Tests 12/16/23 12/22/23 12/22/23 11:55 08:41 08:42 WBC 10.3 Hgb 16.3 Hct 46.3 Plt Count 320 Sodium 140 Potassium 3.8 Creatinine 1.17 Estimated GFR > 60 Fasting Glucose 185 H Hemoglobin A1c % 8.1 H Calcium 10.1 AST 14 ALT 16 C-React Prot High Sens 0.4 Triglycerides 128 Cholesterol 177 LDL Cholesterol, Calc 108 H HDL Cholesterol 44 Vitamin B12 586 Methylmalonic Acid 155 25-OH Vitamin D Total 44.7 TSH 1.09 Assessment and Plan Assessment & Plan (1) Alzheimer's dementia: Code(s): G30.9 - Alzheimer's disease, unspecified; F02.80 - Dementia in other diseases classified elsewhere, unspecified severity, without behavioral disturbance, psychotic disturbance, mood disturbance, and anxiety Qualifiers: Alzheimer's disease onset: unspecified onset Dementia behavioral or psychological symptom: without behavioral, psychotic, or mood disturbance or anxiety Dementia severity: unspecified severity Qualified Code(s): G30.9 - Alzheimer's disease, unspecified; F02.80 - Dementia in other diseases classified elsewhere, unspecified severity, without behavioral disturbance, psychotic disturbance, mood disturbance, and anxiety Plan: CT head done in 2020 revealed (+) mild to moderate frontoparietal cortical atrophy Patient used to see Dr. Bradley for neurology follow up but switched over to [facility] a few months ago Repeat brain MRI done back in June 2023 revealed (+) mild to moderate cerebral volume loss with associated ventricular and sulcal prominence and mild to moderate chronic microvascular ischemic changes. There were also findings suggestive of cerebral amyloid angiopathy Continue Donepezil 5 mg QD and Memantine 14 mg QD Follow up with neurology as scheduled (2) Type 2 diabetes mellitus with unspecified complications: Code(s): E11.8 - Type 2 diabetes mellitus with unspecified complications Plan: Results of his labs done a couple of days ago reviewed and discussed with patient and his His HgbA1c was at 8.1% on his recent labs (was at 7.9% a few months ago) - goal is at least < 7.0% Reinforced diabetic diet - have again advised patient's to help him with this and take charge of his diet as patient would not be able to do this on his own due to his dementia Continue Metformin 1000 mg QD for now but discussed that we may need to increase this to BID dosing if his glycemic control continues to go up (3) Essential hypertension: Code(s): I10 - Essential (primary) hypertension Plan: Reinforced low sodium diet - goal is systolic BP of at least 130 mm or less Continue Losartan 100 mg QD and HCTZ 12.5 mg QD; he used to also take Amlodipine 2.5 mg QD but this was discontinued a few months ago and he has been doing well since (4) Renal cell carcinoma of right kidney: Comment: Clear cell carcinoma, pathological staging pT1a pNx Code(s): C64.1 - Malignant neoplasm of right kidney, except renal pelvis Plan: S/P partial nephrectomy on 12/27/2020 - tumor was limited to the kidney, with nosarcomatoid features, no tumor necrosis or lymphovascular invasion and margins are negative Follow up with urology as scheduled for continuing surveillance (5) 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, AJCC stage III S/P small bowel resection (distal jejunum, proximal ileum and mesentery) and primary small bowel anastomosis on 02/23/2020 Completed adjuvant chemotherapy with modified FOLFOX regimen from 03/2020 to September 2020 Code(s): Z85.068 - Personal history of other malignant neoplasm of small intestine Plan: Diagnosed in 2019 S/P surgical resection and adjuvant chemotherapy Follow up with oncology and GI as scheduled for continuing surveillance and monitoring (6) Gastritis: Code(s): K29.70 - Gastritis, unspecified, without bleeding Qualifiers: Chronicity: unspecified Gastritis bleeding: without bleeding Gastritis type: unspecified gastritis Qualified Code(s): K29.70 - Gastritis, unspecified, without bleeding Plan: Dietary restrictions reinforced; his previous abdominal symptoms have improved with Rx Continue Famotidine 20 mg BID PRN (7) Obstructive sleep apnea: Comment: Mild degree of sleep apnea. The AHI was 08/hr and oxygen bucky was 87%. Code(s): G47.33 - Obstructive sleep apnea (adult) (pediatric) Plan: Patient had a home sleep study done in July 2023 that revealed mild JACI He was recommended to try an oral device first prior to transitioning to AutoPap recommended at 5 to 15 cm H2O Follow up with Sleep Medicine as scheduled (8) Vitamin D deficiency: Code(s): E55.9 - Vitamin D deficiency, unspecified Plan: Continue Vitamin D3 250 mcg 2 times a week Will recheck his Vitamin D level in 4 months for follow up (9) Depression: Code(s): F32.A - Depression, unspecified Qualifiers: Active/Remission status: currently active Depression Type: major depressive disorder Major depression episode severity: unspecified Major depression recurrence: recurrent Qualified Code(s): F33.9 - Major depressive disorder, recurrent, unspecified Plan: Continue Sertraline 25 mg QD (10) Overweight (BMI 25.0-29.9): Code(s): E66.3 - Overweight Plan: Reinforced diet; exercise and weight loss are not realistic but have encouraged patient (and his family to help him) stay active as much as he can Plan Follow up in 4 months Orders: Orders Complete Blood Count Auto Diff 4 Months D64.9 - Anemia, unspecified Microalbumin, Random (w Creat) 4 Months E11.9 - Type 2 diabetes mellitus without complications TSH reflex Free T4 4 Months E78.00 - Pure hypercholesterolemia, unspecified Vitamin B12 and Folate 4 Months E53.8 - Deficiency of other specified B group vitamins Vitamin D 25-OH Total 4 Months E55.9 - Vitamin D deficiency, unspecified Hemoglobin A1c 4 Months E11.9 - Type 2 diabetes mellitus without complications Comprehensive [place]. Panel Fast 4 Months E78.00 - Pure hypercholesterolemia, unspecified Lipid Panel 4 Months E78.00 - Pure hypercholesterolemia, unspecified UA CC w/rflx Micro + Cult 4 Months R30.0 - Dysuria Coding Level of Care Code Est Pt Level 4 (19013) Complex EM visit Add On G2211 Diagnoses Alzheimer's dementia without behavioral disturbance, psychotic disturbance, mood disturbance, or anxiety, unspecified dementia severity, unspecified timing of dementia onset G30.9; F02.80 Alzheimer's disease onset: unspecified onset Dementia behavioral or psychological symptom: without behavioral, psychotic, or mood disturbance or anxiety Dementia severity: unspecified severity Type 2 diabetes mellitus with unspecified complications E11.8 Essential hypertension I10 Renal cell carcinoma of right kidney C64.1 H/O malignant neoplasm of small intestine Z85.068 Gastritis without bleeding, unspecified chronicity, unspecified gastritis type K29.70 Chronicity: unspecified Gastritis bleeding: without bleeding Gastritis type: unspecified gastritis Obstructive sleep apnea G47.33 Vitamin D deficiency E55.9 Episode of recurrent major depressive disorder, unspecified depression episode severity F33.9 Active/Remission status: currently active Depression Type: major depressive disorder Major depression episode severity: unspecified Major depression recurrence: recurrent Overweight (BMI 25.0-29.9) E66.3
== END 2023-12-24 14:36 | disposition home or self-care (01) ==
PROVIDERS: PCP Internal Medicine; Visit Provider Internal Medicine
DX: G30.9 Alzheimer's disease, unspecified (principal); F02.80 Dementia in other diseases classified elsewhere, unspecified severity, without behavioral disturbance, psychotic disturbance, mood disturbance, and anxiety; E11.8 Type 2 diabetes mellitus with unspecified complications; C64.1 Malignant neoplasm of right kidney, except renal pelvis; F33.9 Major depressive disorder, recurrent, unspecified; I10 Essential (primary) hypertension; Z85.068 Personal history of other malignant neoplasm of small intestine; K29.70 Gastritis, unspecified, without bleeding; G47.33 Obstructive sleep apnea (adult) (pediatric); E55.9 Vitamin D deficiency, unspecified; E66.3 Overweight
CPT/HCPCS: 99214; G2211

== ENCOUNTER 2024-01-26 07:51 | Outpatient (REF) | payer OTHER, SELFPAY ==
--- NOTE | ~2024-01-26 | MR_ITS ---
MRI OF THE BRAIN WITH AND WITHOUT IV CONTRAST MRA OF THE BRAIN WITHOUT IV CONTRAST INDICATION: Dementia. Question amyloid angiopathy. COMPARISON: Brain MRI June 19, 2023. TECHNIQUE: Multiplanar multisequence MR imaging of the brain was obtained without and following the administration of 10 mL of Gadavist without complication. Additionally, a noncontrast [id number] MRA of the head is performed. Vascular post-processing, including 2-dimensional and 3-dimensional reformatted images were created and reviewed on an independent workstation under concurrent physician supervision. Stenoses are graded per criteria similar to NASCET. FINDINGS: BRAIN MRI: Stable pattern foci of susceptibility signal within the periphery of the cerebral hemispheres bilaterally as well as chronic siderosis. The patient is young for amyloid angiopathy however amyloid angiitis could appear similar at this age demographic. Global cerebral volume loss and moderate chronic microangiopathy again noted. There is no hydrocephalus, extra-axial surface collection, or herniation. The major flow voids at the skull base are preserved. There is no acute infarct on diffusion-weighted imaging. There is no intracranial hemorrhage on the gradient recalled echo acquisition. The midline structures are normal. The cerebellar tonsils are normally positioned. The cerebellum and brainstem are normal. The craniocervical junction is normal. Osseous marrow signal intensity is homogenous. The visualized soft tissues are unremarkable. Retention cysts within the maxillary sinuses bilaterally. HEAD MRA: The anterior and posterior intracranial arterial circulations are normal in caliber. -type registered medical transcriptionist bilaterally. There are no significant arterial stenoses and there are no acute arterial occlusions intracranially. No aneurysms and no high flow vascular malformations. MR/MR angio head wo con IMPRESSION: * Stable pattern foci of susceptibility signal within the periphery of the cerebral hemispheres bilaterally as well as chronic siderosis. The patient is young for amyloid angiopathy however amyloid angiitis could appear similar at this age demographic. * Global cerebral volume loss and moderate chronic microangiopathy again noted.
--- NOTE | ~2024-01-26 | MR_ITS ---
MRI OF THE BRAIN WITH AND WITHOUT IV CONTRAST MRA OF THE BRAIN WITHOUT IV CONTRAST INDICATION: Dementia. Question amyloid angiopathy. COMPARISON: Brain MRI June 19, 2023. TECHNIQUE: Multiplanar multisequence MR imaging of the brain was obtained without and following the administration of 10 mL of Gadavist without complication. Additionally, a noncontrast [id number] MRA of the head is performed. Vascular post-processing, including 2-dimensional and 3-dimensional reformatted images were created and reviewed on an independent workstation under concurrent physician supervision. Stenoses are graded per criteria similar to NASCET. FINDINGS: BRAIN MRI: Stable pattern foci of susceptibility signal within the periphery of the cerebral hemispheres bilaterally as well as chronic siderosis. The patient is young for amyloid angiopathy however amyloid angiitis could appear similar at this age demographic. Global cerebral volume loss and moderate chronic microangiopathy again noted. There is no hydrocephalus, extra-axial surface collection, or herniation. The major flow voids at the skull base are preserved. There is no acute infarct on diffusion-weighted imaging. There is no intracranial hemorrhage on the gradient recalled echo acquisition. The midline structures are normal. The cerebellar tonsils are normally positioned. The cerebellum and brainstem are normal. The craniocervical junction is normal. Osseous marrow signal intensity is homogenous. The visualized soft tissues are unremarkable. Retention cysts within the maxillary sinuses bilaterally. HEAD MRA: The anterior and posterior intracranial arterial circulations are normal in caliber. -type dietary services manager bilaterally. There are no significant arterial stenoses and there are no acute arterial occlusions intracranially. No aneurysms and no high flow vascular malformations. MR/MR head/brain wo/w con IMPRESSION: * Stable pattern foci of susceptibility signal within the periphery of the cerebral hemispheres bilaterally as well as chronic siderosis. The patient is young for amyloid angiopathy however amyloid angiitis could appear similar at this age demographic. * Global cerebral volume loss and moderate chronic microangiopathy again noted.
[2024-01-26] MEDS: gadobutroL 10 ML VIAL IVPUSH (09:14)
== END 2024-01-26 07:52 | disposition home or self-care (01) ==
LOC: HO.MRI 07:51
PROVIDERS: PCP Internal Medicine; Visit Provider Nurse Practitioner Family
DX: F03.90 Unspecified dementia, unspecified severity, without behavioral disturbance, psychotic disturbance, mood disturbance, and anxiety (principal); R09.89 Other specified symptoms and signs involving the circulatory and respiratory systems
CPT/HCPCS: 70544; 70553; A9585

== ENCOUNTER 2024-03-10 09:54 | Emergency (ER) | payer OTHER, SELFPAY ==
--- NOTE | ~2024-03-10 | XR_ITS ---
EXAMINATION: XR CHEST CLINICAL INFORMATION: Cough COMPARISON: X-ray 07/15/2023 TECHNIQUE: 2 views of the chest were obtained. FINDINGS: No significant abnormality is noted involving the heart, lungs, mediastinum, or soft tissues. Thoracic spine degeneration. XR/XR chest 2V IMPRESSION: No significant interval change. No acute cardiopulmonary findings. Electronically signed by: Gallito Moscoso MD 03/10/2024 11:47 AM EDT
[2024-03-10 09:59] VITALS: BP 143/73; PULSE 64; RESP 18; TEMP 36.1; O2SAT 97; BMI 27.8
--- NOTE | 2024-03-10 12:08 | ED.GENADULT ---
HPI - General Adult General Chief complaint: Upper Respiratory Symptoms Stated complaint: Cough 3 weeks Time Seen by Provider: 03/10/24 12:00 Source: patient and family Mode of arrival: ambulatory Limitations: altered mental status History of Present Illness ED Provider: anna PADRON narrative: Patient is a 68-year-old male with history of dementia, DM, HTN, anemia presenting to the emergency department with who reports patient has had a nonproductive cough for the past 3 weeks. States cough is primarily at nighttime and patient is lying supine. She denies fevers. Denies any sputum production. Patient denies any abdominal pain or epigastric pain. Denies any chest pain or palpitations. states that patient was seen at urgent care and told that lungs were clear, advised to use Flonase for postnasal drip. She states they have been using this with little decrease in symptoms. He then had telehealth visit via [facility] and was advised to use Robitussin at night time, states this is also not decreasing patient's cough. She states that patient does have p.r.n. famotidine ordered by a collections attorney which patient has not been taking as he has not complained of epigastric pain or reflux. MD complaint: cough Onset (ago): week(s) Associated symptoms: denies other symptoms Treatments prior to arrival: other Related Data Previous Rx's ?Medication ?Instructions ?Recorded polyethylene glycol 3350 17 17 g PO DAILY 30 days #510 grams 07/19/21 gram/dose oral powder (Miralax) lancets (Liquid GridsTouch UltraSoft #100 ea 09/24/22 Lancets) lancets 33 gauge #100 ea 12/20/22 DIABETIC SHOES (1 pair) #2 ea 01/28/23 SHOE INSERTS (3 pairs) #6 ea 02/11/23 cholecalciferol (vitamin D3) 250 250 mcg PO 2XW 90 days #26 caps 08/25/23 mcg (10,000 unit) capsule blood-glucose meter (OneTouch #1 ea 09/24/23 Ultra2 Meter) blood sugar diagnostic (Liquid GridsTouch #100 ea 10/07/23 Ultra Test strips) losartan 100 mg tablet 100 mg PO DAILY 90 days #90 tabs 10/25/23 metformin 1,000 mg tablet 1,000 mg PO DAILY #90 tabs 10/25/23 famotidine 20 mg tablet 20 mg PO BID 90 days #180 tabs 10/27/23 Commode #1 ea 11/11/23 clonazepam 0.5 mg tablet 0.25 mg (1/2 x 0.5 mg) PO BEDTIME 01/01/24 PRN insomnia 30 days #30 tabs donepezil 5 mg tablet 5 mg PO BEDTIME 30 days #30 tabs 01/30/24 hydrochlorothiazide 12.5 mg capsule 12.5 mg PO DAILY 90 days #90 caps 01/30/24 memantine 14 mg capsule 14 mg PO DAILY 30 days #30 ea 01/30/24 sprinkle,extended release 24hr ADULT PULL UPS (large) #100 ea 02/02/24 nut.tx.gluc.intol,lac-free,soy See Rx Instructions .Route 02/02/24 (Glucerna oral liquid) .COMPLEX weight loss 30 days #90 multiple units walker (Ultra-Light Rollator misc) #1 ea 02/17/24 melatonin 3 mg tablet 9 mg (3 x 3 mg) PO BEDTIME sleep 02/18/24 30 days #90 tabs melatonin 3 mg tablet,extended 3 - 6 mg (1 - 2 x 3 mg) PO 02/23/24 release .COMPLEX 30 days #60 tabs Bed pads #5 ea 03/03/24 disposable bed pads #60 ea 03/03/24 incontinent wipes #180 ea 03/03/24 blood-glucose meter,continuous #1 ea 03/04/24 (FreeStyle Jermaine 3 [place]) blood-glucose sensor (FreeStyle #1 ea 03/04/24 Jermaine 3 Sensor device) benzonatate 100 mg capsule 100 mg PO TID PRN cough #20 caps 03/10/24 omeprazole 20 mg capsule,delayed 20 mg PO DAILY #14 caps 03/10/24 release Allergies Allergy/AdvReac Type Severity Reaction Status Date / Time No Known Allergies Allergy Verified 03/10/24 10:00 [No Known Allergies*] Review of Systems Review of Systems: As per HPI. Yes all other systems are reviewed and are negative Constitutional: Constitutional: Reports as per HPI [facility] Past Medical History Medical History (Updated 03/10/24 @ 12:37 by Aury Vega NP) Cerebral amyloid angiopathy Obstructive sleep apnea Overweight (BMI 25.0-29.9) Alzheimer's dementia Depression Vitamin D deficiency Memory impairment Renal cell carcinoma of right kidney Essential hypertension Type 2 diabetes mellitus with unspecified complications H/O malignant neoplasm of small intestine Diverticula of colon Kidney mass Anemia Diabetes Hypertension Surgical History Hx of colonoscopy Hx of kidney removal History of esophagogastroduodenoscopy (EGD) H/O sinus surgery Family History Family History Father No problems noted. Mother Heart disease Pancreas cancer Maternal Grandmother Stomach cancer Social History Social History Household Members: Spouse Housing: Apartment Are you a primary critical care unit manager to a significant other at home: No Do you presently have visiting nurse or other home services: No Alcohol intake: former Comment: given as premed Patient Tobacco Use Status: Former Tobacco user Tobacco use type: Cigar e-Cigarette/Vaping Use: Never Used Second Hand Smoke Exposure: No Advance Directives: No Advance Directives Information Provided: No service: No Current occupational status: retired Cognitive needs: No Hearing needs: No Vision needs: Yes (glasses) Physical Exam ED Vital Signs: Vital Signs - 24 hr 03/10/24 09:59 Temperature 97 F Pulse Rate 64 Respiratory Rate 18 Blood Pressure 143/73 H Pulse Oximetry 97 Oxygen Delivery Method Room Air BMI result Body Mass Index 27.8 Vital signs have been reviewed and appear to be correct. Blood pressure normal. Heart rate normal. Respiratory rate normal. Temperature normal. Oxygen saturation normal. Const General: cooperative, healthy appearing and no acute distress Orientation/consciousness: oriented to person, oriented to place, oriented to time and patient oriented x3 Limitations: no limitations HENMT Head: Yes normocephalic and Yes atraumatic Ears: external ears normal General nose exam: Normal external nose present Face and sinus: Yes face symmetric Mouth: oropharynx normal and moist mucous membranes Throat: Yes uvula midline Eyes Pupils: Equal, round and reactive pupils present Neck Neck: Yes normal visual inspection and Yes supple Resp Effort & Inspection: normal respiratory effort and able to speak in complete sentences Auscultation: clear to auscultation bilaterally, no crackles, no rales and no wheezes Cardio Rate: regular rate Rhythm: regular rhythm Heart sounds: S1 normal heart sound present and S2 normal heart sound present GI Palpation (GI): Soft to palpation and nontender Auscultation: normoactive bowel sounds General: Yes no CVA tenderness Back/Spine/Pelvis Back: no CVA tenderness Skin General skin exam: elasticity normal and turgor normal Neuro General: oriented to person, oriented to place, oriented to time, patient oriented x3, moves all extremities, no focal motor deficits and CN's II-XI intact bilaterally Cranial nerves: Yes Equal, round and reactive pupils present Cognition (Neuro): normal cognition Extrem General: Yes full ROM, Yes no pedal edema and Yes no calf tenderness Psych Mental Status: mental status grossly normal Affect: normal affect Thought process: Normal thought process present Medical Decision Making Medical Decision Making [facility] Narrative: Patient is a 68-year-old male with history of dementia, DM, HTN, anemia presenting to the emergency department with who reports patient has had a nonproductive cough for the past 3 weeks. On exam patient is awake, A+Ox3, VS WNL, afebrile, normal neurological exam without focal deficits, physical exam findings as above. Given reported symptoms and physical exam findings, initial differential includes bronchitis, pneumonia, GERD. X-ray chest notable for no evidence of pneumonia. My interpretation is in agreement with the radiologist's interpretation. Discussed with that lungs are clear on physical exam, x-ray is without evidence of pneumonia, symptoms possibly related to acid reflux. Will trial patient on omeprazole, will also send prescription for benzonatate. Instructed to follow up with Gastroenterology if symptoms improve with omeprazole. Follow up with PCP as well. Return precautions discussed at bedside. Patient and verbalized understanding of and agreement with plan. Differential Diagnosis Differential Diagnoses: The differential diagnosis associated with the presentation includes As per MDM Independent Interpretation I performed an independent interpretation of an: Plain X-Ray Interpretation: X-ray chest notable for no evidence of pneumonia. Radiology Impression Discussion of test interpretation with radiology: I have reviewed the radiologist's reading. Radiologist Impression: XR/XR chest 2V IMPRESSION: No significant interval change. No acute cardiopulmonary findings. Independent Historian Clinical information obtained from an independent historian. History obtained from or confirmed by: Spouse External Record Review External record reviewed: Inpatient record, Office record and Outpatient record Prescription Management I considered prescription management with: Other Discharge Plan Discharge Clinical Impression: Cough Patient Disposition: Home, Self-Care Instructions: Gastroesophageal Reflux Disease (DC), Acute Cough (ED) Additional Instructions: You were evaluated in the emergency department today for ongoing cough. Your chest x-ray did not show evidence of pneumonia. Your lungs were clear on exam. It is possible that your symptoms are related to acid reflux, also known as GERD. You are being prescribed a medication for acid reflux, please take this as prescribed. We recommend that you follow-up with your collections attorney. You are also being prescribed benzonatate which you can take every 8 hours as needed for cough. Please keep this medication out of the reach of children. Follow-up with your primary care provider. Return to the emergency department if you develop fever, chest pain, difficulty breathing, or any other concerning symptoms. Prescriptions: New benzonatate 100 mg capsule 100 mg PO TID PRN (Reason: cough) Qty: 20 0RF omeprazole 20 mg capsule,delayed release(DR/EC) 20 mg PO DAILY Qty: 14 0RF No Action (DME) lancets [[facility] UltraSoft [facility]ets[facility] See Rx Instructions .ROUTE .MEDSUPPLY Qty: 100 5RF Rx Instructions: As directed once a day (DME) lancets 33 gauge misc See Rx Instructions .Route Qty: 100 3RF Rx Instructions: As directed (DME) DIABETIC SHOES (1 pair) See Rx Instructions .Route .MEDSUPPLY Qty: 2 1RF Rx Instructions: As directed (DME) SHOE INSERTS (3 pairs) See Rx Instructions .Route .MEDSUPPLY Qty: 6 0RF Rx Instructions: As directed cholecalciferol (vitamin D3) 250 mcg (10,000 unit) capsule 250 mcg PO 2XW 90 Days Qty: 26 2RF (DME) blood-glucose meter [OneTouch Ultra2 Meter] [facility] See Rx Instructions .Route Qty: 1 0RF Rx Instructions: As directed (DME) OneTouch Ultra Test Strip See Rx Instructions .ROUTE .MEDSUPPLY Qty: 100 5RF Rx Instructions: As directed once a day metformin 1,000 mg tablet 1,000 mg PO DAILY Qty: 90 1RF losartan 100 mg tablet 100 mg PO DAILY 90 Days Qty: 90 1RF famotidine 20 mg tablet 20 mg PO BID 90 Days Qty: 180 1RF (DME) Commode See Rx Instructions .Route .MEDSUPPLY Qty: 1 0RF Rx Instructions: As directed clonazepam 0.5 mg tablet 0.25 mg PO BEDTIME PRN (Reason: insomnia) 30 Days Qty: 30 1RF Rx Instructions: administer 30 minutes before bedtime, may repeat x's 1 (max daily dose 1 tab) hydrochlorothiazide 12.5 mg capsule 12.5 mg PO DAILY 90 Days Qty: 90 1RF memantine 14 mg capsule,sprinkle,ER 24hr 14 mg PO DAILY 30 Days Qty: 30 1RF donepezil 5 mg tablet 5 mg PO BEDTIME 30 Days Qty: 30 6RF Glucerna Liquid See Rx Instructions .ROUTE .COMPLEX 30 Days Qty: 90 12RF Rx Instructions: 1 can orally TID with meals; (DME) ADULT PULL UPS (large) large See Rx Instructions .Route .MEDSUPPLY Qty: 100 12RF Rx Instructions: As directed (DME) Ultra-Light Rollator Misc See Rx Instructions .Route Qty: 1 0RF Rx Instructions: As directed melatonin 3 mg tablet 9 mg PO BEDTIME 30 Days Qty: 90 1RF melatonin 3 mg tablet extended release 3 - 6 mg PO .COMPLEX 30 Days Qty: 60 6RF Rx Instructions: 3 - 6 mg orally QHS; (DME) disposable bed pads See Rx Instructions .Route .MEDSUPPLY Qty: 60 2RF Rx Instructions: As directed (DME) incontinent wipes See Rx Instructions .Route .MEDSUPPLY Qty: 180 2RF Rx Instructions: As directed (DME) Bed pads See Rx Instructions .Route .MEDSUPPLY Qty: 5 1RF Rx Instructions: As directed (DME) FreeStyle Jermaine 3 [place] Misc See Rx Instructions .ROUTE .MEDSUPPLY Qty: 1 1RF Rx Instructions: As directed (DME) FreeStyle Jermaine 3 Sensor Device See Rx Instructions .ROUTE .MEDSUPPLY Qty: 1 1RF Rx Instructions: As directed polyethylene glycol 3350 [Miralax] 17 gram/dose powder 17 g PO DAILY 30 Days Qty: 510 3RF Referrals: Zhou Mitchell MD [Physician] - Print Language: [place]
[2024-03-10 12:46] VITALS: BP 143/73; PULSE 64; RESP 18; TEMP 36.1; O2SAT 97
== END 2024-03-10 12:47 | disposition home or self-care (01) ==
PROVIDERS: Emergency Provider Emergency Medicine; PCP Internal Medicine
DX: R05.9 Cough, unspecified (principal); E11.9 Type 2 diabetes mellitus without complications; I10 Essential (primary) hypertension; Z79.899 Other long term (current) drug therapy
CPT/HCPCS: 71046; 99282; 99283

== ENCOUNTER 2024-03-24 10:33 | Emergency (ER) | payer OTHER, SELFPAY ==
--- NOTE | ~2024-03-24 | XR_ITS ---
EXAMINATION: XR CHEST CLINICAL INFORMATION: Cough. COMPARISON: Chest radiograph dated 03/10/2024. TECHNIQUE: 2 views of the chest were obtained. FINDINGS: The lungs are clear. The cardiomediastinal silhouette is normal in size. There is no pleural effusion or pneumothorax. No acute osseous abnormality. XR/XR chest 2V IMPRESSION: No acute cardiopulmonary findings. Electronically signed by: Hayden Henderson MD 03/24/2024 11:56 AM EDT
[2024-03-24 10:51] VITALS: BP 133/76; PULSE 79; RESP 16; TEMP 36.5; O2SAT 97; BMI 26.9
--- NOTE | 2024-03-24 10:53 | ED_ITS ---
HPI - General Adult General Chief complaint: Upper Respiratory Symptoms Stated complaint: Upper resp Time Seen by Provider: 03/24/24 11:31 Source: patient, family, RN notes reviewed and old records reviewed Mode of arrival: ambulatory History of Present Illness ED Provider: Tata Sneed PA-C HPI narrative: 69-year-old male with a past medical history of Alzheimer's dementia, diabetes, HTN, presenting to ED with complaining of persistent dry cough x 1 month with clear sputum production x yesterday. History obtained from who states they have been to urgent care and our ED on 9 for for similar symptoms, patient has been taking Flonase, Robitussin DM, Tessalon Perles, and omeprazole without relief. Cough worse at night. Denies fever, chills, SOB/CP, travel, sick contacts. Related Data Previous Rx's ?Medication ?Instructions ?Recorded polyethylene glycol 3350 17 17 g PO DAILY 30 days #510 grams 07/19/21 gram/dose oral powder (Miralax) lancets (OneTouch UltraSoft #100 ea 09/24/22 Lancets) lancets 33 gauge #100 ea 12/20/22 DIABETIC SHOES (1 pair) #2 ea 01/28/23 SHOE INSERTS (3 pairs) #6 ea 02/11/23 cholecalciferol (vitamin D3) 250 250 mcg PO 2XW 90 days #26 caps 08/25/23 mcg (10,000 unit) capsule blood-glucose meter (OneTouch #1 ea 09/24/23 Ultra2 Meter) blood sugar diagnostic (OneTouch #100 ea 10/07/23 Ultra Test strips) metformin 1,000 mg tablet 1,000 mg PO DAILY #90 tabs 10/25/23 famotidine 20 mg tablet 20 mg PO BID 90 days #180 tabs 10/27/23 Commode #1 ea 11/11/23 donepezil 5 mg tablet 5 mg PO BEDTIME 30 days #30 tabs 01/30/24 hydrochlorothiazide 12.5 mg capsule 12.5 mg PO DAILY 90 days #90 caps 01/30/24 memantine 14 mg capsule 14 mg PO DAILY 30 days #30 ea 01/30/24 sprinkle,extended release 24hr ADULT PULL UPS (large) #100 ea 02/02/24 nut.tx.gluc.intol,lac-free,soy See Rx Instructions .Route 02/02/24 (Glucerna oral liquid) .COMPLEX weight loss 30 days #90 multiple units walker (Ultra-Light Rollator misc) #1 ea 02/17/24 melatonin 3 mg tablet 9 mg (3 x 3 mg) PO BEDTIME sleep 02/18/24 30 days #90 tabs melatonin 3 mg tablet,extended 3 - 6 mg (1 - 2 x 3 mg) PO 02/23/24 release .COMPLEX 30 days #60 tabs blood-glucose meter,continuous #1 ea 03/04/24 (FreeStyle Jermaine 3 [place]) blood-glucose sensor (FreeStyle #1 ea 03/04/24 Jermaine 3 Sensor device) benzonatate 100 mg capsule 100 mg PO TID PRN cough #20 caps 03/10/24 omeprazole 20 mg capsule,delayed 20 mg PO DAILY #14 caps 03/10/24 release clonazepam 0.5 mg tablet 0.25 mg (1/2 x 0.5 mg) PO BEDTIME 03/12/24 PRN insomnia 30 days #30 tabs incontinent wipes / 10 packs #180 ea 03/12/24 Bed pads #5 ea 03/16/24 disposable bed pads /10 packs #60 ea 03/16/24 losartan 100 mg tablet 100 mg PO DAILY 90 days #90 tabs 03/22/24 azithromycin 250 mg tablet See Rx Instructions PO .COMPLEX #6 03/24/24 tabs prednisone 20 mg tablet 40 mg (2 x 20 mg) PO DAILY 3 days 03/24/24 #6 tabs Allergies Allergy/AdvReac Type Severity Reaction Status Date / Time No Known Allergies Allergy Verified 03/24/24 10:54 [No Known Allergies*] Review of Systems 2 Review of Systems: Yes all other systems are reviewed and are negative Constitutional: Constitutional: Reports as per [facility] Past Medical History Attestation statement: The following information was validated with the patient. Source: old records reviewed Medical History Cerebral amyloid angiopathy Obstructive sleep apnea Overweight (BMI 25.0-29.9) Alzheimer's dementia Depression Vitamin D deficiency Memory impairment Renal cell carcinoma of right kidney Essential hypertension Type 2 diabetes mellitus with unspecified complications H/O malignant neoplasm of small intestine Diverticula of colon Kidney mass Anemia Diabetes Hypertension Surgical History Hx of colonoscopy Hx of kidney removal History of esophagogastroduodenoscopy (EGD) H/O sinus surgery Family History Family History Father No problems noted. Mother Heart disease Pancreas cancer Maternal Grandmother Stomach cancer Social History Social History Household Members: Spouse Housing: Apartment Are you a primary youth career specialist to a significant other at home: No Do you presently have visiting nurse or other home services: No Alcohol intake: former Comment: given as premed Patient Tobacco Use Status: Former Tobacco user Tobacco use type: Cigar e-Cigarette/Vaping Use: Never Used Second Hand Smoke Exposure: No service: No Current occupational status: retired Cognitive needs: No Hearing needs: No Vision needs: Yes (glasses) Physical Exam ED Vital Signs: Vital Signs - 24 hr 03/24/24 10:51 03/24/24 13:00 Temperature 97.7 F 97.7 F Pulse Rate 79 79 Respiratory Rate 16 16 Blood Pressure 133/76 133/76 Pulse Oximetry 97 97 Oxygen Delivery Method Room Air Room Air BMI result Body Mass Index 26.9 Const General: cooperative, healthy appearing and no acute distress Orientation/consciousness: patient oriented x3 Limitations: no limitations HENMT Head: Yes normal to inspection and Yes atraumatic Ears: hearing grossly normal bilaterally General nose exam: Normal external nose present Face and sinus: Yes normal facial exam Mouth: Normal oral and palatal mucosa present Throat: Yes posterior oropharynx normal Eyes General: appearance normal, both eyes and all related structures EOM: EOMs intact bilaterally Neck Neck: Yes normal visual inspection and Yes no meningeal signs Resp Effort & Inspection: normal respiratory effort and no respiratory distress Auscultation: clear to auscultation bilaterally, no crackles, no rales, no rhonchi and no wheezes Cardio Rate: regular rate Heart sounds: S1 normal heart sound present and S2 normal heart sound present Skin Rashes: no rashes Wounds: no wounds Neuro General: patient oriented x3, tone normal and no meningeal signs Cranial nerves: Yes CN's II-XII intact bilaterally Gait exam (Neuro): Normal gait present Extrem General: Yes normal to inspection, Yes no pedal edema and Yes no calf tenderness Course Course Course Narrative: This is a rapid medical exam performed by Juice Vega NP: Additional HPI, ROS, PE not included below will be deferred to primary provider. Patient is a 69-year-old male with history of Alzheimer's, T2DM, HTN presenting to the ED with who reports ongoing cough for over one month. Overnight patient awoke at 4am coughing up clear sputum. Seen here on 03/10 for same. Plan: CXR, labs -1232--mild leukocytosis 12.2. Creatinine 1.46 (near baseline) XR chest 2V IMPRESSION: No acute cardiopulmonary findings. > with shared decision-making will start patient on short course Prednisone x3 days and Azithromycin. Discussed monitoring glucose while on prednisone. Results discussed with patient including worrisome signs and symptoms and strict return precautions, and when to return to the emergency department. They verbalized understanding and feel safe for discharge at this time. Medical Decision Making Medical Decision Making [facility] Narrative: 69-year-old male with a past medical history of Alzheimer's dementia, diabetes, HTN, presenting to ED with complaining of persistent dry cough x 1 month with clear sputum production x yesterday. On exam vital signs stable, NAD, nontoxic appearing, lungs CTA, no pedal edema/calf tenderness. Oropharynx WNL. Concern for viral illness vs pneumonia vs bronchitis. Low suspicion for ACS/PE or DVT Plan: Labs, CXR Please refer to course for remaining clinical decision making, interpretation of labs/imaging results, and discussions with consultants and/or family members. Differential Diagnosis Differential Diagnoses: The differential diagnosis associated with the presentation includes As above Admission/Observation Consideration of admission/observation: Escalation of care including admission/observation considered Lab Data [facility] Lab Attestation statement: I reviewed the patient's lab results. 03/24/24 11:04 03/24/24 11:04 Labs: Lab Results 03/24/24 Range/Units 11:04 WBC 12.2 H (4.8-10.8) X10*3/uL RBC 5.22 (4.60-5.80) X10*6/uL Hgb 16.0 (14.0-18.0) g/dl Hct 45.2 (42.0-52.0) % MCV 86.6 (80.0-98.0) fL MCH 30.7 (27.0-33.0) pg MCHC 35.4 (31.0-36.0) g/dl RDW 12.6 (11.0-16.0) % Plt Count 285 (160-400) X10*3/uL MPV 9.4 (9.4-12.4) fL Immature Gran % (Auto) 0.4 (0.0-0.4) % Neut % (Auto) 77.4 H (45-73) % Lymph % (Auto) 15.8 L (20-40) % [place] % (Auto) 5.3 (2-11) % Eos % (Auto) 0.7 (0-4) % Baso % (Auto) 0.4 (0-2) % Lymph # (Auto) 1.9 (1.2-4.9) X10*3/uL [place] # (Auto) 0.7 (0.1-1.2) X10*3/uL Eos # (Auto) 0.1 (0.0-0.4) X10*3/uL Baso # (Auto) 0.1 (0.0-0.2) X10*3/uL Abs Immat Gran (auto) 0.05 H (0.00-0.03) X10*3/uL Absolute Neuts (auto) 9.4 H (2.0-8.3) x10*3/uL Absolute Nucleated RBC 0.000 (0.0-0.012) X10*3/uL Nucleated RBC % (auto) 0.0 (0.0-0.2) /100WBC Sodium 139 (135-145) mmol/L Potassium 4.0 (3.3-5.1) mmol/L Chloride 105 (96-108) mmol/L Carbon Dioxide 29 (22-29) mmol/L Anion Gap 9 L (12-20) BUN 14 (9-16) mg/dL Creatinine 1.46 H (0.5-1.4) mg/dL Estim Creat Clear Calc 52.2 Estimated GFR 48 Random Glucose 297 H (60-115) mg/dL Calcium 10.0 (8.4-10.2) mg/dL Total Bilirubin 1.0 (0.0-1.0) mg/dL AST 16 (5-37) U/L ALT 16 (0-40) U/L Alkaline Phosphatase 69 (39-117) U/L Total Protein 7.6 (6.5-8.0) g/dL Albumin 4.2 (3.5-5.0) g/dL Independent Interpretation I performed an independent interpretation of an: Plain X-Ray Radiology Impression Discussion of test interpretation with radiology: I have reviewed the radiologist's reading. Independent Historian Clinical information obtained from an independent historian. History obtained from or confirmed by: Spouse External Record Review External record reviewed: Inpatient record, Office record, Outpatient record, Prior outpatient labs, Prior outpatient radiology, Primary care record and Outside ED record Tests considered The following testing was considered but not selected: As above Prescription Management I considered prescription management with: Pain Medication and Antibiotic Chronic Conditions Patient?s care impacted by: Diabetes and Hypertension Social Determinants Patient?s care significantly limited by Social Determinants of Health including: Unemployment and Other Social Determinant of Health Discharge Plan Discharge Clinical Impression: Bronchitis Patient Disposition: Home, Self-Care Instructions: Acute Bronchitis (ED) Additional Instructions: Please continue taking previously prescribed Flonase and Tessalon Perles In addition azithromycin as an antibiotic please take as prescribed Prednisone as a steroid please monitor sugars while on prednisone as this will increase them Follow-up with your doctor closely, call to make an appointment You should also follow-up with pulmonology If symptoms persist or worsen return to the ED Prescriptions: New azithromycin 250 mg tablet See Rx Instructions .ROUTE .COMPLEX Qty: 6 0RF Rx Instructions: take 500 mg today (day 1), then 250 mg for 4 days (days 2-5) prednisone 20 mg tablet 40 mg PO DAILY 3 Days Qty: 6 0RF No Action (DME) lancets [OneTouch UltraSoft Lancets] Misc See Rx Instructions .ROUTE .MEDSUPPLY Qty: 100 5RF Rx Instructions: As directed once a day (DME) lancets 33 gauge misc See Rx Instructions .Route Qty: 100 3RF Rx Instructions: As directed (DME) DIABETIC SHOES (1 pair) See Rx Instructions .Route .MEDSUPPLY Qty: 2 1RF Rx Instructions: As directed (DME) SHOE INSERTS (3 pairs) See Rx Instructions .Route .MEDSUPPLY Qty: 6 0RF Rx Instructions: As directed cholecalciferol (vitamin D3) 250 mcg (10,000 unit) capsule 250 mcg PO 2XW 90 Days Qty: 26 2RF (DME) blood-glucose meter [OneTouch Ultra2 Meter] [facility] See Rx Instructions .Route Qty: 1 0RF Rx Instructions: As directed (DME) OneTouch Ultra Test Strip See Rx Instructions .ROUTE .MEDSUPPLY Qty: 100 5RF Rx Instructions: As directed once a day metformin 1,000 mg tablet 1,000 mg PO DAILY Qty: 90 1RF famotidine 20 mg tablet 20 mg PO BID 90 Days Qty: 180 1RF (DME) Commode See Rx Instructions .Route .MEDSUPPLY Qty: 1 0RF Rx Instructions: As directed hydrochlorothiazide 12.5 mg capsule 12.5 mg PO DAILY 90 Days Qty: 90 1RF memantine 14 mg capsule,sprinkle,ER 24hr 14 mg PO DAILY 30 Days Qty: 30 1RF donepezil 5 mg tablet 5 mg PO BEDTIME 30 Days Qty: 30 6RF Glucerna Liquid See Rx Instructions .ROUTE .COMPLEX 30 Days Qty: 90 12RF Rx Instructions: 1 can orally TID with meals; (DME) ADULT PULL UPS (large) large See Rx Instructions .Route .MEDSUPPLY Qty: 100 12RF Rx Instructions: As directed (DME) Ultra-Light Rollator [facility] See Rx Instructions .Route Qty: 1 0RF Rx Instructions: As directed melatonin 3 mg tablet 9 mg PO BEDTIME 30 Days Qty: 90 1RF melatonin 3 mg tablet extended release 3 - 6 mg PO .COMPLEX 30 Days Qty: 60 6RF Rx Instructions: 3 - 6 mg orally QHS; (DME) FreeStyle Jermaine 3 [place] [facility] See Rx Instructions .ROUTE .MEDSUPPLY Qty: 1 1RF Rx Instructions: As directed (DME) FreeStyle Jermaine 3 Sensor Device See Rx Instructions .ROUTE .MEDSUPPLY Qty: 1 1RF Rx Instructions: As directed clonazepam 0.5 mg tablet 0.25 mg PO BEDTIME PRN (Reason: insomnia) 30 Days Qty: 30 1RF Rx Instructions: administer 30 minutes before bedtime, may repeat x's 1 (max daily dose 1 tab) (DME) incontinent wipes / 10 packs See Rx Instructions .Route .MEDSUPPLY Qty: 180 2RF Rx Instructions: As directed (DME) Bed pads See Rx Instructions .Route .MEDSUPPLY Qty: 5 1RF Rx Instructions: As directed (DME) disposable bed pads /10 packs See Rx Instructions .Route .MEDSUPPLY Qty: 60 2RF Rx Instructions: As directed losartan 100 mg tablet 100 mg PO DAILY 90 Days Qty: 90 1RF benzonatate 100 mg capsule 100 mg PO TID PRN (Reason: cough) Qty: 20 0RF omeprazole 20 mg capsule,delayed release(DR/EC) 20 mg PO DAILY Qty: 14 0RF polyethylene glycol 3350 [Miralax] 17 gram/dose powder 17 g PO DAILY 30 Days Qty: 510 3RF Referrals: [facility] Pulmonology Services [Provider Group] Yuri Wilkes MD [Primary Care Provider] - 3 days Interventions: ED Discharge Assessment Last Done: 03/24/24 13:00 Discharge Date/Time: 03/24/24 13:00 Print Language: Cameroonian
[2024-03-24 11:08] LABS: MANUAL DIFF FLAG NO
[2024-03-24 11:12] LABS: Basophils Absolute Auto 0.1 X10*3/uL (0.0-0.2); Basophils Percent Auto 0.4 % (0-2); Eosinophils Absolute Auto 0.1 X10*3/uL (0.0-0.4); Eosinophils Percent Auto 0.7 % (0-4); Hematocrit 45.2 % (42.0-52.0); Imm Gran Abs Auto 0.05 X10*3/uL (0.00-0.03); Imm Gran Pct Auto 0.4 % (0.0-0.4); Lymphocytes Absolute Auto 1.9 X10*3/uL (1.2-4.9); Lymphocytes Percent Auto 15.8 % (20-40); Mean Corpuscular HGB Conc 35.4 g/dl (31.0-36.0); Mean Corpuscular Hemoglobin 30.7 pg (27.0-33.0); Mean Corpuscular Volume 86.6 fL (80.0-98.0); Mean Platelet Volume 9.4 fL (9.4-12.4); Monocytes Absolute Auto 0.7 X10*3/uL (0.1-1.2); Monocytes Percent Auto 5.3 % (2-11); Neutrophils Absolute Auto 9.4 x10*3/uL (2.0-8.3); Neutrophils Percent Auto 77.4 % (45-73); Platelet Count 285 X10*3/uL (160-400); Red Blood Count 5.22 X10*6/uL (4.60-5.80); Red Cell Distribution Width 12.6 % (11.0-16.0); White Blood Count 12.2 X10*3/uL (4.8-10.8)
[2024-03-24 11:25] LABS: Alanine Aminotransferase 16 U/L (0-40); Albumin Level 4.2 g/dL (3.5-5.0); Alkaline Phosphatase 69 U/L (39-117); Anion Gap 9 (12-20); Aspartate Amino Transferase 16 U/L (5-37); Blood Urea Nitrogen 14 mg/dL (9-16); Carbon Dioxide 29 mmol/L (22-29); Chloride 105 mmol/L (96-108); Creatinine Clr Calc Pharmacy 52.2; Estimated Glomerular Filt Rate 48; Glucose Random 297 mg/dL (60-115); Sodium 139 mmol/L (135-145); Total Protein 7.6 g/dL (6.5-8.0)
[2024-03-24 13:00] VITALS: BP 133/76; PULSE 79; RESP 16; TEMP 36.5; O2SAT 97
== END 2024-03-24 13:00 | disposition home or self-care (01) ==
PROVIDERS: Registered Nurse Emergency; Emergency Provider Emergency Medicine; PCP Internal Medicine
DX: J40 Bronchitis, not specified as acute or chronic (principal); R05.9 Cough, unspecified; G30.9 Alzheimer's disease, unspecified; F02.80 Dementia in other diseases classified elsewhere, unspecified severity, without behavioral disturbance, psychotic disturbance, mood disturbance, and anxiety; I10 Essential (primary) hypertension; E11.9 Type 2 diabetes mellitus without complications; Z79.84 Long term (current) use of oral hypoglycemic drugs; Z79.899 Other long term (current) drug therapy
CPT/HCPCS: 36415; 71046; 80053; 85025; 99282; 99283

== ENCOUNTER 2024-03-26 09:26 | Outpatient (AMB) | payer OTHER, SELFPAY ==
[2024-03-26 09:34] VITALS: BP 118/72; PULSE 68; O2SAT 98; BMI 25.8
--- NOTE | 2024-03-26 09:34 | A.OFFPC_ITS ---
Vital Signs 03/26/24 09:34 Height 5 ft 11 in Weight 184 lb 15.485 oz BMI 25.8 BP 118/72 Blood Pressure Location Lt brachial Position Sitting Pulse 68 Pulse Source Pulse Oximeter Pulse Oximetry (%) 98 Oxygen Delivery Method Room Air Int[place] [facility] [place] Upper [place] Mine Captain Required: No Accompanied by: Self / Same As Patient Allergies No Known Allergies [No Known Allergies*] Allergy (Verified 03/26/24 09:55) Medication List - Last Reconciled 03/26/24 by Yuri Wilkes MD [ADULT PULL UPS (large) As directed] albuterol sulfate 2.5 mg (3 mL) inhalation QID PRN 30 days azithromycin take 500 mg today (day 1), then 250 mg for 4 days (days 2-5) [Bed pads As directed] benzonatate 100 mg PO TID PRN blood sugar diagnostic (BioWizarduch Ultra Test strips) As directed once a day blood-glucose meter (Station X Ultra2 Meter) As directed blood-glucose meter,continuous (BA SystemsStyle Jermaine 3 [place]) As directed blood-glucose sensor (FreeStyle Jermaine 3 Sensor device) As directed cholecalciferol (vitamin D3) 250 mcg PO 2XW 90 days clonazepam 0.25 mg (1/2 x 0.5 mg) PO BEDTIME PRN 30 days [Commode As directed] [DIABETIC SHOES (1 pair) As directed] [disposable bed pads /10 packs As directed] donepezil 5 mg PO BEDTIME 30 days famotidine 20 mg PO BID 90 days hydrochlorothiazide 12.5 mg PO DAILY 90 days [incontinent wipes / 10 packs As directed] lancets (MobilepoliceTouch UltraSoft Lancets) As directed once a day lancets As directed losartan 100 mg PO DAILY 90 days melatonin 9 mg (3 x 3 mg) PO BEDTIME 30 days melatonin ER 3 - 6 mg orally QHS; 30 days memantine 14 mg PO DAILY 30 days metformin 1,000 mg PO DAILY nut.tx.gluc.intol,lac-free,soy (Glucerna oral liquid) 1 can orally TID with meals; 30 days omeprazole 20 mg PO DAILY polyethylene glycol 3350 (Miralax) 17 grams PO DAILY 30 days prednisone 40 mg (2 x 20 mg) PO DAILY 3 days [SHOE INSERTS (3 pairs) As directed] walker (Ultra-Light Rollator misc) As directed Tobacco use date assessed: 03/26/24 Fall risk assessment: No Falls in past year Last assessed Fall Risk: 03/26/24 Dental Screening Dental Screen Date: 03/26/24 Did you have a dental visit in the last 12 months?: Yes Did you have a dental problem in the last 6 months where you did not have access to dental care?: No Was dental information given to patient?: Patient has dentist [facility] 03/24 Upper resp HPI Details Patient comes in today for follow up of his recurrent cough and respiratory symptoms, which his states have been bothering him for almost a month now He reportedly went to the ER at the beginning of the month for recurrent cough and congestion and was sent home only with instructions to continue symptomatic Tx with OTC meds when his chest x-rays came out negative He went back to the ER a couple of days ago for persistence of his symptoms over the past few weeks Chest x-rays were again negative but this time, he was sent home with Rx for a Z-alana, which he is still currently on His states that he was coughing so much lately that he ended up throwing up in the middle of the night States that both times, she tested him for COVID and both of his tests came back negative His cough was mostly non-productive but he has been coughing up some whitish phlegm lately Patient denies any fever or sore throat He denies any headaches or dizziness Denies any chest pains, no increased SOB No nausea/vomiting, no abdominal pain No change in bowel habits noted His states that he has a nebulizer at home but he does not have any Albuterol solution to use for his machine [facility] Medical History Cerebral amyloid angiopathy Obstructive sleep apnea Overweight (BMI 25.0-29.9) Alzheimer's dementia Depression Vitamin D deficiency Memory impairment Renal cell carcinoma of right kidney Essential hypertension Type 2 diabetes mellitus with unspecified complications H/O malignant neoplasm of small intestine Diverticula of colon Kidney mass Anemia Diabetes Hypertension Surgical History Hx of colonoscopy Hx of kidney removal History of esophagogastroduodenoscopy (EGD) H/O sinus surgery Family History Father No problems noted. Mother Heart disease Pancreas cancer Maternal Grandmother Stomach cancer Social History Household Members: Spouse Housing: Apartment Are you a primary hospice patient care secretary to a significant other at home: No Do you presently have visiting nurse or other home services: No Alcohol intake: former Comment: given as premed Patient Tobacco Use Status: Former Tobacco user Tobacco use type: Cigar e-Cigarette/Vaping Use: Never Used Second Hand Smoke Exposure: No service: No Current occupational status: retired Cognitive needs: No Hearing needs: No Vision needs: Yes (glasses) Questionnaire PHQ-9 Over the last 2 weeks, how often have you been bothered by any of the following problems? 1. Little interest or pleasure in doing things: not at all 2. Feeling down, depressed, or hopeless: not at all 3. Trouble falling or staying asleep, or sleeping too much: not at all 4. Feeling tired or having little energy: not at all 5. Poor appetite or overeating: not at all 6. Feeling bad about yourself - or that you are a failure or have let yourself or your family down: not at all 7. Trouble concentrating on things, such as reading the newspaper or watching television: not at all 8. Moving or speaking so slowly that other people could have noticed. Or the opposite - being so fidgety or restless that you have been moving around a lot more than usual: not at all 9. Thoughts that you would be better off or of hurting yourself in some way: not at all Total score: 0 Depression Screening Interpretation: Negative Depression Screening Done: Yes 39496 - PHQ-9 Billing: Yes Source: Developed by Drs. Ashkan Henning, Heena Raphael, Rafiq Cristina and colleagues, with an educational edwige from [employer]. Thrive Questionnaire Date Thrive assessed: 03/26/24 I am a: Patient What is your living situation today?: I have a steady place to live Within the past 12 months, did the food you bought not last and you didn't have the money to get more?: Never true Within the past 12 months, did you worry whether your food would run out before you got money to buy more?: Never true Do you have trouble paying for medicines?: No Do you have trouble getting transportation to medical appointments?: No Do you have trouble paying your heating and electricity bill?: No Do you have trouble taking care of your child, family member or friend?: No Do you have trouble with day-to-day activities such as bathing, preparing meals, shopping, managing finances, etc.?: No Are you currently unemployed and looking for a job?: No Are you interested in more education?: No Please select the resources that you would like help with: None Currently or been in a relationship where the following occur: No concerns reported THRIVE Score: 0 AUDIT C Alcohol Use Questionnaire (AUDIT-C) 1. How often do you have a drink containing alcohol?: Never 3. How often do you have six or more drinks on one occasion?: Never Total Score: 0 Score Reviewed/Action Taken: Yes LAURA-7 AMB Questionnaire LAURA-7 Date LAURA - 7 assessed: 03/26/24 Feeling nervous, anxious, or on edge: 0 = Not at all Not being able to stop or control worryin = Not at all Worrying too much about different things: 0 = Not at all Trouble relaxin = Not at all Being so restless that it is hard to sit still: 0 = Not at all Becoming easily annoyed or irritable: 0 = Not at all Feeling afraid as if something awful might happen: 0 = Not at all Total LAURA-7 score (0-4 normal; 5-9 mild; 10-14 moderate; 15-21 severe): 0 Source: Developed by Drs. Ashkan Henning, Heena Raphael, Rafiq Cristina and colleagues, with an educational edwige from [employer]. Review of Systems Const Denies chills, Denies difficulty sleeping (sleeping better with his CPAP device), Denies fatigue, Denies fever(s) and Denies headache(s) ENT Denies dysphagia, Denies dizziness, Denies otalgia, Denies headache(s), Denies neck pain, Denies odynophagia and Denies sore throat Card Denies chest pain, Denies palpitations and Denies dyspnea Resp Denies chest congestion, Reports cough (recurrent; is coughing up some thick whitish phlegm lately), Denies dyspnea and Denies wheezing GI Denies abdominal pain, Denies constipation (better controlled on Rx), Denies d ysphagia, Denies heartburn, Denies diarrhea, Denies nausea, Denies odynophagia and Denies vomiting Denies dysuria, Denies nocturia and Denies urinary frequency Musc Denies back pain and Denies neck pain Skin/Breast Denies rash Neuro Denies behavioral changes, Reports confusion (on and off), Denies dizziness, Denies headache(s) and Reports memory loss (very forgetful) Psych Denies behavioral changes, Reports confusion (on and off) and Reports memory loss (very forgetful) Endo Denies fatigue and Denies palpitations Aller/Immun Denies wheezing Physical exam (Primary Care) Vital Signs: Last Vital Signs Pulse 68 03/26/24 09:34 BP 118/72 03/26/24 09:34 Pulse Ox 98 03/26/24 09:34 Oxygen Delivery Method Room Air 03/26/24 09:34 BMI result Body Mass Index 25.8 Tobacco/Smoking Status: Tobacco use Status Tobacco use date assessed 03/26/24 03/26/24 09:41 Patient Tobacco Use Status Former Tobacco user 03/26/24 09:41 Tobacco use type Cigar 03/26/24 09:41 e-Cigarette/Vaping Use Never Used 03/26/24 09:41 PHQ-9: PHQ-9 Score PHQ-9: Total score 0 03/26/24 09:41 Depression Screening Interpretation: Negative Thrive Assessment: Date of Thrive Assessment Date Thrive assessed 03/26/24 03/26/24 09:41 Currently or been in a relationship where the following occur: No concerns reported Const General: confusion (on and off) Orientation/consciousness: confusion (on and off) HENMT Ears: TM's normal bilaterally and EAC's normal Throat: Yes posterior oropharynx normal and Yes tonsils normal (no TP congestion) Neck Neck: Yes no lymphadenopathy and Yes supple Thyroid: Thyroid normal Resp Auscultation: clear to auscultation bilaterally, no rales and no wheezes Cardio Rate: regular rate Rhythm: regular rhythm Heart sounds: no murmurs GI Palpation (GI): Soft to palpation and nontender Auscultation: normal bowel sounds General: Yes no CVA tenderness Back/Spine/Pelvis Back: no CVA tenderness Skin Rashes: no rashes Neuro General: confusion (on and off) Extrem General: Yes no clubbing, cyanosis or edema Assessment and Plan Assessment & Plan (1) Respiratory tract infection: Code(s): J98.8 - Other specified respiratory disorders Plan: Based on patient's symptoms, have again discussed with patient's that his respiratory tract infection is most likely viral in etiology but as he is already on Azithromycin, have advised her to make sure patient completely finishes his current Abx He's had a couple of chest x-rays done over the past 2 to 3 weeks and both came out negative His adds that she's tested him at least twice for COVID and his tests have all come out negative Will go ahead and send him to the lab to test for the complete respiratory panel, including influenza and RSV as well as releat COVID testing - have advised his that we will reach out to them about his results as soon as they are available Per request, Rx for Albuterol nebulizer solution sent to his local pharmacy Will also send in some Rx to help with his cough Plan Follow up as scheduled next month Orders: Orders SARS-CoV2/FLU/RSV Today J98.8 - Other specified respiratory disorders Medications: New albuterol sulfate 2.5 mg (3 mL) inhalation QID 30 days PRN 180 mL 3RF shortness of breath or wheezing J44.9 - Chronic obstructive pulmonary disease, unspecified dextromethorphan-guaifenesin 10-100 mg/5 mL 10 mL PO Q6H PRN 500 mL 1RF cough Coding Level of Care Code Est Pt Level 3 (42346) Diagnoses Respiratory tract infection J98.8
== END 2024-03-26 09:55 | disposition home or self-care (01) ==
PROVIDERS: PCP Internal Medicine; Visit Provider Internal Medicine
DX: J98.8 Other specified respiratory disorders (principal)

== ENCOUNTER 2024-03-26 09:26 | Outpatient (REF) | payer OTHER, SELFPAY ==
[2024-03-26 11:06] LABS: Influenza A PCR NEGATIVE (Negative); Influenza B PCR NEGATIVE (Negative); Resp Syncy Virus RNA Qual PCR NEGATIVE (Negative); SARS COV2 PCR INHOUSE NEGATIVE (Negative)
== END 2024-03-26 09:27 | disposition home or self-care (01) ==
LOC: HO.LAB 09:26
PROVIDERS: PCP Internal Medicine; Visit Provider Internal Medicine
DX: J98.8 Other specified respiratory disorders (principal)
CPT/HCPCS: 0241U; 96127; 99212

== ENCOUNTER 2024-04-14 09:56 | Outpatient (AMB) | payer OTHER, SELFPAY ==
[2024-04-14 09:59] VITALS: BMI 25.5
--- NOTE | 2024-04-14 09:59 | MHC.OFFVIS ---
Vital Signs 04/14/24 09:59 Height 5 ft 11 in Weight 183 lb BMI 25.5 Intake Visit Reasons: Follow up Intake Note: Patient presents for follow up. patient does a lot of wondering in the house and agitated. Allergies No Known Allergies [No Known Allergies*] Allergy (Verified 04/14/24 10:04) Medication List - Last Reconciled 04/14/24 by AUGUSTIN Garcia [ADULT PULL UPS (large) As directed] albuterol sulfate 2.5 mg (3 mL) inhalation QID PRN 30 days azithromycin take 500 mg today (day 1), then 250 mg for 4 days (days 2-5) [Bed pads As directed] benzonatate 100 mg PO TID PRN blood sugar diagnostic (FlyReadyJetuch Ultra Test strips) As directed once a day blood-glucose meter (FlyReadyJetuch Ultra2 Meter) As directed blood-glucose meter,continuous ([employer] COStyle Jermaine 3 [place]) As directed blood-glucose sensor (FreeStyle Jermaine 3 Sensor device) As directed cholecalciferol (vitamin D3) 250 mcg PO 2XW 90 days clonazepam 0.25 mg (1/2 x 0.5 mg) PO BEDTIME PRN 30 days [Commode As directed] dextromethorphan-guaifenesin 10-100 mg/5 mL 10 mL PO Q6H PRN [DIABETIC SHOES (1 pair) As directed] [disposable bed pads /10 packs As directed] donepezil 5 mg PO BEDTIME 30 days famotidine 20 mg PO BID 90 days hydrochlorothiazide 12.5 mg PO DAILY 90 days [incontinent wipes / 10 packs As directed] lancets ([employer] PlumbTouch UltraSoft Lancets) As directed once a day lancets As directed losartan 100 mg PO DAILY 90 days melatonin 9 mg (3 x 3 mg) PO BEDTIME 30 days melatonin ER 3 - 6 mg orally QHS; 30 days memantine 14 mg PO DAILY 30 days metformin 1,000 mg PO DAILY [Non slip bath mat As directed] nut.tx.gluc.intol,lac-free,soy (Glucerna oral liquid) 1 can orally TID with meals; 30 days omeprazole 20 mg PO DAILY polyethylene glycol 3350 (Miralax) 17 grams PO DAILY 30 days prednisone 40 mg (2 x 20 mg) PO DAILY 3 days [SHOE INSERTS (3 pairs) As directed] [Shower handle As directed] walker (Ultra-Light Rollator misc) As directed HPI Comments Details: 68-yr-old male presents for f/u visit, accompanied by his , Sylvia. Pt denies any significant interval medical changes though he did have an interval bronchitis, and he is still having some nocturnal coughing. The cough syrup helps some. Brain MRI w/wo and Brain MRA w/o showed stable pattern foci of susceptibility signal within the periphery of the cerebral hemispheres bilaterally as well as chronic siderosis. Global cerebral volume loss and moderate chronic microangiopathy. Thus, pt advsied to undergo follow-up Amvyd PET scan, which was positive for moderate to frequent amyloid neuritic plaques. He is needing more help with ADLs, using the bathroom. Has difficulty initiating tasks. H e is eating ok, but states he has lost wt. PCP started him on Boost qam. He is not talking as much. He is rolling his fingers. He is walking slower- he is not wanting to use a walker. He does get frustrated if he has to walk longer distances. In the evening, after it becomes dark, he walks up to his bedroom and just sits in the dark. He may be agitated if his wants him to come out of the room. Recently, wanted him to come downstairs as they had plans, but he said no firmly and tapped the wall. Eventually he came downstairs on his own. Recently, he was at a family's members house, when he went to use the bathroom, he saw kid in the toilet- for just a second. Pt has been sleeping better with Clonazepam. He is tolerating Memantine 15mg ER qd and Donepazil 5mg qd well. Donepazil at 10mg qd caused GI.. He has had memory issues since he underwent chemotherapy for colon cancer stopped 4 yrs ago- and since this has progressed. Pt cognitive symptoms are worse in the evening- he is confused at night. He deneis family h/o early onset dementia on his mother's side, and does not know his father's side. 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 Work-up: 03/04/2024, at [facility], CT PET Amyvid Brain Imaging: IMPRESSION: The scan is positive, indicating moderate to frequent amyloid neuritic plaques. 01/26/24, MR/MR head/brain wo/w con, MRA head w/o: IMPRESSION: * Stable pattern foci of susceptibility signal within the periphery of the cerebral hemispheres bilaterally as well as chronic siderosis. The patient is young for amyloid angiopathy however amyloid angiitis could appear similar at this age demographic. * Global cerebral volume loss and moderate chronic microangiopathy again noted. 06/2023 MR/MR head/brain wo con IMPRESSION: Numerous foci of susceptibility artifact in a peripheral distribution may be seen in the setting of underlying cerebral amyloid angiopathy. Clinical correlation is recommended. Mild generalized cerebral volume loss with associated ventricular and sulcal prominence. Mild to moderate chronic microvascular ischemic change. [facility] Medical History Cerebral amyloid angiopathy Obstructive sleep apnea Overweight (BMI 25.0-29.9) Alzheimer's dementia Depression Vitamin D deficiency Memory impairment Renal cell carcinoma of right kidney Essential hypertension Type 2 diabetes mellitus with unspecified complications H/O malignant neoplasm of small intestine Diverticula of colon Kidney mass Anemia Diabetes Hypertension Surgical History Hx of colonoscopy Hx of kidney removal History of esophagogastroduodenoscopy (EGD) H/O sinus surgery Family History Father No problems noted. Mother Heart disease Pancreas cancer Maternal Grandmother Stomach cancer Social History Household Members: Spouse Housing: Apartment Are you a primary day care provider to a significant other at home: No Do you presently have visiting nurse or other home services: No Alcohol intake: former Comment: given as premed Patient Tobacco Use Status: Former Tobacco user Tobacco use type: Cigar e-Cigarette/Vaping Use: Never Used Second Hand Smoke Exposure: No service: No Current occupational status: retired Cognitive needs: No Hearing needs: No Vision needs: Yes (glasses) Physical Exam Vital Signs: BMI result Body Mass Index 25.5 Const General: cooperative and no acute distress Resp Effort & Inspection: normal respiratory effort and able to speak in complete sentences Neuro Other: Pt is alert w/ STM lapses. He does not engage in conversation unless spoken to directly. He provides short, but appropriate answers. Pleasant affect, but expression is dulled. Mild pill rolling of BUE. No tremor. Stands slowly, decreased arm swing, knees bent w/ very short steps. General: CN's II-XI intact bilaterally Motor exam (neuro): 5/5 motor strength present throughout Psych Appearance: grossly normal Results Reviewed Results Reviewed: RESULT: CT PET Amyvid Brain [facility] PET/CT Imaging VISIT NUMBER :[id number] Patient Name: Elijah Bearden Date of : 1955 Date of Exam: 03-04-2024 Referring Physician: Lesli Zacarias [address] [place] [address] [address] [place] [address] Exam: PT Amyvid Brain Imaging CPT 14227 Room Description: [facility] Pt4 EXAMINATION: Brain Amyloid PET/CT IMAGING HISTORY: 68-year-old male with progressive mild cognitive decline.. COMPARISON: Report from outside MRI brain angiogram dated 01/26/2024 was reviewed. RADIOPHARMACEUTICAL: 10.12 mCi F 18 Amyvid IV TECHNIQUE: 30 to 50 minutes after injection of tracer, noncontrast CT images were obtained for attenuation correction followed by a series of overlapping emission PET images of the brain. Images were reconstructed and presented in transverse, coronal, and sagittal planes. FINDINGS: There is diffusely increased Amyvid uptake throughout the cortical cerebral giles matter. Most intense uptake is seen in the prefrontal, lateral temporal, and parietal areas, with these areas showing clear loss of the normal giles-white contrast. The cerebellum has no evidence of abnormal uptake.CT images demonstrate mild prominence of the cerebral ventricles and sulci. IMPRESSION: The scan is positive, indicating moderate to frequent amyloid neuritic plaques. NOTE: Amyvid is indicated for Positron Emission Tomography (PET) imaging of the brain to estimate ?-amyloid neuritic plaque density in adult patients with cognitive impairment who are being evaluated for Alzheimer?s Disease and other causes of cognitive decline. A negative Amyvid scan indicates sparse to no neuritic plaques and is inconsistent with a neuropathological diagnosis of Alzheimer?s Disease at the time of image acquisition; a negative scan result reduces the likelihood that a patient?s cognitive impairment is due to Alzheimer?s Disease. A positive Amyvid scan indicates moderate to frequent amyloid neuritic plaques; neuropathological examination has shown this amount of amyloid neuritic plaque is present in patients with Alzheimer?s Disease, but may also be present in patients with other types of neurologic conditions as well as older people with normal cognition. Amyvid is an adjunct to other diagnostic evaluations. Limitations of Use: ? A positive Amyvid scan does not establish a diagnosis of Alzheimer?s Disease or other cognitive disorder Safety and effectiveness of Amyvid have not been established for: ? Predicting development of dementia or other neurologic condition ? Monitoring responses to therapies Electronically Signed By: Imelda Velazquez MD Assessment & Plan Assessment & Plan (1) Alzheimer's dementia: Code(s): G30.9 - Alzheimer's disease, unspecified; F02.80 - Dementia in other diseases classified elsewhere, unspecified severity, without behavioral disturbance, psychotic disturbance, mood disturbance, and anxiety Category: Medical Qualifiers: Alzheimer's disease onset: unspecified onset Dementia severity: unspecified severity Dementia behavioral or psychological symptom: without behavioral, psychotic, or mood disturbance or anxiety Qualified Code(s): G30.9 - Alzheimer's disease, unspecified; F02.80 - Dementia in other diseases classified elsewhere, unspecified severity, without behavioral disturbance, psychotic disturbance, mood disturbance, and anxiety (2) Cerebral amyloid angiopathy: Code(s): E85.4 - Organ-limited amyloidosis; I68.0 - Cerebral amyloid angiopathy Category: Medical (3) Bradykinesia: Code(s): R25.8 - Other abnormal involuntary movements Category: Medical (4) Gait difficulty: Code(s): R26.9 - Unspecified abnormalities of gait and mobility Category: Medical (5) Dementia: Code(s): F03.90 - Unspecified dementia, unspecified severity, without behavioral disturbance, psychotic disturbance, mood disturbance, and anxiety Category: Medical (6) Abnormal brain MRI: Code(s): R90.89 - Other abnormal findings on diagnostic imaging of central nervous system Category: Medical (7) Obstructive sleep apnea: Comment: Mild degree of sleep apnea. The AHI was 08/hr and oxygen bucky was 87%. Code(s): G47.33 - Obstructive sleep apnea (adult) (pediatric) Category: Medical (8) Sleep difficulties: Code(s): G47.9 - Sleep disorder, unspecified Category: Medical Plan Reviewed recent brain MRI/MRA and PET scan- results c/w a Alzheimer's dementia w/ cerebral amyloid angiopthy. Comprehensive neuro-psych evaluation as ordered. Pt is fluent in Swedish. We have requested genetics evaluation- to assess for genetics causes of young onset dementia s/s. Continue Melatonin- trial Melatonin 3mg q evening and 6mg qhs. Continue Clonazepam 0.25-0.5mg qhs. Continue Donepazil 5mg qd- decreased from 10mg d/t GI upset and anorexia. Increase Memantine ER from 14mg to 21mg qd. Start out-pt PT for gait. Continue supportive care. Continue engaging pt in daily exercise, as well as cognitive and socially stimulating activities. However, advised to set a schedule for activities, limit number of daily activities. Pt may also benefit from trying bright or SAD type light exposure. Reinforced importance of allwoing pt time to relax, reproach or redirect pt when pt is frustrated/irritated. Encourage PAP use, however sleep apnea is mild so we do not have to force pt to use it. Continue optimized sleep hygiene practices. will reach out to pt/ in ~ 2 weeks to assess effect of above, consider trial of low dose CD-LD for gait. Pt to follow-up in 3-4 months or sooner prn. Orders: Orders PT Evaluation and Treatment Today E85.4 - Organ-limited amyloidosis, F02.80 - Dementia in other diseases classified elsewhere, unspecified severity, without behavioral disturbance, psychotic disturbance, mood disturbance, and anxiety, G30.9 - Alzheimer's disease, unspecified, I68.0 - Cerebral amyloid angiopathy, R25.8 - Other abnormal involuntary movements, R26.9 - Unspecified abnormalities of gait and mobility Medications: New memantine 21 mg PO DAILY 30 days 30 ea 1RF Discontinued memantine Discontinued Reason: Doctor's Order 14 mg PO DAILY 30 days 30 ea 1RF Coding Level of Care Code Est Pt Level 4 (75858) Complex EM visit Add On G2211 Diagnoses Alzheimer's dementia without behavioral disturbance, psychotic disturbance, mood disturbance, or anxiety, unspecified dementia severity, unspecified timing of dementia onset G30.9; F02.80 Alzheimer's disease onset: unspecified onset Dementia severity: unspecified severity Dementia behavioral or psychological symptom: without behavioral, psychotic, or mood disturbance or anxiety Cerebral amyloid angiopathy E85.4; I68.0 Bradykinesia R25.8 Gait difficulty R26.9 Dementia F03.90 Abnormal brain MRI R90.89 Obstructive sleep apnea G47.33 Sleep difficulties G47.9
== END 2024-04-14 11:03 | disposition home or self-care (01) ==
PROVIDERS: PCP Internal Medicine; Visit Provider Nurse Practitioner Family
DX: G30.9 Alzheimer's disease, unspecified (principal); F02.80 Dementia in other diseases classified elsewhere, unspecified severity, without behavioral disturbance, psychotic disturbance, mood disturbance, and anxiety; E85.4 Organ-limited amyloidosis; I68.0 Cerebral amyloid angiopathy; R25.8 Other abnormal involuntary movements; R26.9 Unspecified abnormalities of gait and mobility; F03.90 Unspecified dementia, unspecified severity, without behavioral disturbance, psychotic disturbance, mood disturbance, and anxiety; R90.89 Other abnormal findings on diagnostic imaging of central nervous system; G47.33 Obstructive sleep apnea (adult) (pediatric); G47.9 Sleep disorder, unspecified
CPT/HCPCS: 99214; G2211

== ENCOUNTER → 2024-04-14 09:56 | Outpatient (BNVA) | payer OTHER, SELFPAY | PROVIDERS: PCP Internal Medicine; Visit Provider Nurse Practitioner Family | DX: G30.9 Alzheimer's disease, unspecified (principal); F02.80 Dementia in other diseases classified elsewhere, unspecified severity, without behavioral disturbance, psychotic disturbance, mood disturbance, and anxiety; G47.33 Obstructive sleep apnea (adult) (pediatric); E85.4 Organ-limited amyloidosis; I68.0 Cerebral amyloid angiopathy; R25.8 Other abnormal involuntary movements; R26.9 Unspecified abnormalities of gait and mobility; R90.89 Other abnormal findings on diagnostic imaging of central nervous system | CPT/HCPCS: 99212 ==

== ENCOUNTER 2024-04-21 09:56 | Emergency (ER) | payer OTHER, SELFPAY ==
--- NOTE | ~2024-04-21 | XR_ITS ---
EXAMINATION: XR CHEST 2 VIEW CLINICAL INFORMATION: Dry hacking cough COMPARISON: 03/24/2024 TECHNIQUE: PA and lateral views of the chest obtained. FINDINGS: The lungs are clear. There are no pleural effusions. The cardiomediastinal silhouette is normal. XR/XR chest 2V IMPRESSION: No acute cardiopulmonary disease. Electronically signed by: Pranay Han MD 04/21/2024 01:27 PM EDT
[2024-04-21 10:04] VITALS: BP 151/81; PULSE 64; RESP 16; TEMP 36.2; O2SAT 99; BMI 26.9
[2024-04-21 10:30] LABS: MANUAL DIFF FLAG NO
[2024-04-21 10:31] LABS: Basophils Percent Auto 0.4 % (0-2); Eosinophils Absolute Auto 0.1 X10*3/uL (0.0-0.4); Eosinophils Percent Auto 0.8 % (0-4); Hematocrit 44.9 % (42.0-52.0); Hemoglobin 16.1 g/dl (14.0-18.0); Imm Gran Abs Auto 0.03 X10*3/uL (0.00-0.03); Imm Gran Pct Auto 0.3 % (0.0-0.4); Lymphocytes Absolute Auto 2.4 X10*3/uL (1.2-4.9); Lymphocytes Percent Auto 24.7 % (20-40); Mean Corpuscular HGB Conc 35.9 g/dl (31.0-36.0); Mean Corpuscular Hemoglobin 30.9 pg (27.0-33.0); Mean Corpuscular Volume 86.2 fL (80.0-98.0); Mean Platelet Volume 9.4 fL (9.4-12.4); Monocytes Absolute Auto 0.6 X10*3/uL (0.1-1.2); Monocytes Percent Auto 6.2 % (2-11); Neutrophils Absolute Auto 6.5 x10*3/uL (2.0-8.3); Neutrophils Percent Auto 67.6 % (45-73); Platelet Count 288 X10*3/uL (160-400); Red Blood Count 5.21 X10*6/uL (4.60-5.80); Red Cell Distribution Width 12.5 % (11.0-16.0); White Blood Count 9.6 X10*3/uL (4.8-10.8)
[2024-04-21 10:45] LABS: Anion Gap 15 (12-20); Blood Urea Nitrogen 13 mg/dL (9-16); Calcium 10.2 mg/dL (8.4-10.2); Carbon Dioxide 26 mmol/L (22-29); Chloride 103 mmol/L (96-108); Creatinine Clr Calc Pharmacy 56.9; Estimated Glomerular Filt Rate 53; Glucose Random 311 mg/dL (60-115); Sodium 140 mmol/L (135-145)
--- NOTE | 2024-04-21 13:42 | ED_ITS ---
HPI - General Adult General Chief complaint: General Medical Stated complaint: r flank pain Time Seen by Provider: 04/21/24 13:34 Source: patient and family () Mode of arrival: ambulatory History of Present Illness HPI narrative: This is 69 years old patient with history of dementia presented to emergency department with a chief complaint of cough, the patient has been having a cough for weeks. He was given antibiotic cough medicine without any improvement. He has no other systemic symptoms no fever vomiting no chills,he has hx of dementia,hx given by . According to his he was having also right side pain this morning Onset (ago): month(s) (2) Location: chest Radiation: non-radiation Severity: mild Pain Consistency: constant Relieving factors: none Exacerbating factors: none Related Data Previous Rx's ?Medication ?Instructions ?Recorded polyethylene glycol 3350 17 17 g PO DAILY 30 days #510 grams 07/19/21 gram/dose oral powder (Miralax) lancets (OneTouch UltraSoft #100 ea 09/24/22 Lancets) lancets 33 gauge #100 ea 12/20/22 DIABETIC SHOES (1 pair) #2 ea 01/28/23 SHOE INSERTS (3 pairs) #6 ea 02/11/23 cholecalciferol (vitamin D3) 250 250 mcg PO 2XW 90 days #26 caps 08/25/23 mcg (10,000 unit) capsule blood-glucose meter (OneTouch #1 ea 09/24/23 Ultra2 Meter) blood sugar diagnostic (OneTouch #100 ea 10/07/23 Ultra Test strips) metformin 1,000 mg tablet 1,000 mg PO DAILY #90 tabs 10/25/23 famotidine 20 mg tablet 20 mg PO BID 90 days #180 tabs 10/27/23 Commode #1 ea 11/11/23 donepezil 5 mg tablet 5 mg PO BEDTIME 30 days #30 tabs 01/30/24 hydrochlorothiazide 12.5 mg capsule 12.5 mg PO DAILY 90 days #90 caps 01/30/24 ADULT PULL UPS (large) #100 ea 02/02/24 nut.tx.gluc.intol,lac-free,soy See Rx Instructions .Route 02/02/24 (Glucerna oral liquid) .COMPLEX weight loss 30 days #90 multiple units walker (Ultra-Light Rollator misc) #1 ea 02/17/24 melatonin 3 mg tablet 9 mg (3 x 3 mg) PO BEDTIME sleep 02/18/24 30 days #90 tabs melatonin 3 mg tablet,extended 3 - 6 mg (1 - 2 x 3 mg) PO 02/23/24 release .COMPLEX 30 days #60 tabs blood-glucose meter,continuous #1 ea 03/04/24 (FreeStyle Jermaine 3 Wyocena) blood-glucose sensor (FreeStyle #1 ea 03/04/24 Jermaine 3 Sensor device) benzonatate 100 mg capsule 100 mg PO TID PRN cough #20 caps 03/10/24 omeprazole 20 mg capsule,delayed 20 mg PO DAILY #14 caps 03/10/24 release clonazepam 0.5 mg tablet 0.25 mg (1/2 x 0.5 mg) PO BEDTIME 03/12/24 PRN insomnia 30 days #30 tabs incontinent wipes / 10 packs #180 ea 03/12/24 Bed pads #5 ea 03/16/24 disposable bed pads /10 packs #60 ea 03/16/24 losartan 100 mg tablet 100 mg PO DAILY 90 days #90 tabs 03/22/24 azithromycin 250 mg tablet See Rx Instructions PO .COMPLEX #6 03/24/24 tabs prednisone 20 mg tablet 40 mg (2 x 20 mg) PO DAILY 3 days 03/24/24 #6 tabs albuterol sulfate 2.5 mg/3 mL 2.5 mg (3 mL) inhalation QID PRN 03/26/24 (0.083 %) solution for nebulization shortness of breath or wheezing 30 days #180 mL dextromethorphan-guaifenesin 10 10 ml PO Q6H PRN cough #500 mL 03/26/24 mg-100 mg/5 mL oral liquid Non slip bath mat #1 ea 03/31/24 Shower handle #1 ea 03/31/24 memantine 21 mg capsule 21 mg PO DAILY 30 days #30 ea 04/14/24 sprinkle,extended release 24hr cetirizine 10 mg capsule (Zyrtec) 10 mg PO DAILY #10 caps 04/21/24 Allergies Allergy/AdvReac Type Severity Reaction Status Date / Time No Known Allergies Allergy Verified 04/21/24 10:06 [No Known Allergies*] Review of Systems 2 Review of Systems: Yes Unobtainable due to mental condition (dementia) Cardiovascular: Cardiovascular: Reports no additional cardiovascular complaints Neurologic: Reports system reviewed and no additional complaints, except as documented PMFSH Past Medical History Attestation statement: The following information was validated with the patient. Source: unable to obtain Medical History Cerebral amyloid angiopathy Obstructive sleep apnea Overweight (BMI 25.0-29.9) Alzheimer's dementia Depression Vitamin D deficiency Memory impairment Renal cell carcinoma of right kidney Essential hypertension Type 2 diabetes mellitus with unspecified complications H/O malignant neoplasm of small intestine Diverticula of colon Kidney mass Anemia Diabetes Hypertension Surgical History Hx of colonoscopy Hx of kidney removal History of esophagogastroduodenoscopy (EGD) H/O sinus surgery Family History Family History Father No problems noted. Mother Heart disease Pancreas cancer Maternal Grandmother Stomach cancer Social History Social History Household Members: Spouse Housing: Apartment Are you a primary foster care therapist to a significant other at home: No Do you presently have visiting nurse or other home services: No Alcohol intake: former Comment: given as premed Patient Tobacco Use Status: Former Tobacco user Tobacco use type: Cigar Smoked in Last 30 Days: No e-Cigarette/Vaping Use: Never Used Second Hand Smoke Exposure: No Use of substances other than those prescribed or required for medical reasons: No Advance Directives: Yes Advance Directives on File: Yes Advance Directives Date on File: 09/12/20 Do you have a plan to hurt others: No Plan service: No Current occupational status: retired Cognitive needs: No Hearing needs: No Vision needs: Yes (glasses) Physical Exam ED Vital Signs: Vital Signs - 24 hr 04/21/24 10:04 04/21/24 13:59 Temperature 97.1 F 98.0 F Pulse Rate 64 67 Respiratory Rate 16 18 Blood Pressure 151/81 H 134/84 Pulse Oximetry 99 98 Oxygen Delivery Method Room Air Room Air BMI result Body Mass Index 26.9 He looks well is not toxic-appearing very comfortable Const General: cooperative, comfortable, no acute distress and well developed Nutritional Appearance: well nourished Orientation/consciousness: oriented to person [facility] Head: Yes normal to inspection General nose exam: Normal external nose present Face and sinus: Yes normal facial exam Mouth: Normal oral and palatal mucosa present Throat: Yes posterior oropharynx normal Neck Neck: Yes normal visual inspection and Yes full ROM Chest Chest palpation & inspection: normal inspection of the chest Resp Effort & Inspection: normal respiratory effort Auscultation: clear to auscultation bilaterally Cardio Jugular venous distension: no JVD Rate: regular rate Rhythm: regular rhythm GI Inspection: Yes normal to inspection Palpation (GI): Soft to palpation, not firm, nontender and no guarding Auscultation: normal bowel sounds General: Yes no CVA tenderness Back/Spine/Pelvis Back: no CVA tenderness Neuro General: oriented to person Course Reevaluation(s) Reevaluation #1: CXR wnl,UA normal,labs ok he can be d/c home. His cough is chronic there is no indication for antibiotic, we will try antihistamine, he has an appointment anyway with a lens blank gauger for his chronic cough Time: 15:47 Medical Decision Making Medical Decision Making [facility] Narrative: Patient presented with cough congestion we will do a chest x-ray labs and reassess Differential Diagnosis Differential Diagnoses: The differential diagnosis associated with the presentation includes Pneumonia/ bronchitis/ asthma Lab Data 04/21/24 10:24 04/21/24 10:24 Labs: Lab Results 04/21/24 04/21/24 Range/Units 10:24 14:00 WBC 9.6 (4.8-10.8) X10*3/uL RBC 5.21 (4.60-5.80) X10*6/uL Hgb 16.1 (14.0-18.0) g/dl Hct 44.9 (42.0-52.0) % MCV 86.2 (80.0-98.0) fL MCH 30.9 (27.0-33.0) pg MCHC 35.9 (31.0-36.0) g/dl RDW 12.5 (11.0-16.0) % Plt Count 288 (160-400) X10*3/uL MPV 9.4 (9.4-12.4) fL Immature Gran % (Auto) 0.3 (0.0-0.4) % Neut % (Auto) 67.6 (45-73) % Lymph % (Auto) 24.7 (20-40) % [place] % (Auto) 6.2 (2-11) % Eos % (Auto) 0.8 (0-4) % Baso % (Auto) 0.4 (0-2) % Lymph # (Auto) 2.4 (1.2-4.9) X10*3/uL [place] # (Auto) 0.6 (0.1-1.2) X10*3/uL Eos # (Auto) 0.1 (0.0-0.4) X10*3/uL Baso # (Auto) 0.0 (0.0-0.2) X10*3/uL Abs Immat Gran (auto) 0.03 (0.00-0.03) X10*3/uL Absolute Neuts (auto) 6.5 (2.0-8.3) x10*3/uL Absolute Nucleated RBC 0.000 (0.0-0.012) X10*3/uL Nucleated RBC % (auto) 0.0 (0.0-0.2) /100WBC Sodium 140 (135-145) mmol/L Potassium 4.0 (3.3-5.1) mmol/L Chloride 103 (96-108) mmol/L Carbon Dioxide 26 (22-29) mmol/L Anion Gap 15 (12-20) BUN 13 (9-16) mg/dL Creatinine 1.34 (0.5-1.4) mg/dL Estim Creat Clear Calc 56.9 Estimated GFR 53 Random Glucose 311 H (60-115) mg/dL Calcium 10.2 (8.4-10.2) mg/dL Urine Color Yellow Urine Appearance Clear Urine pH 6.5 (5.0-9.0) Ur Specific [place] 1.025 (1.005-1.025) Urine Protein Negative (Neg-Trace) mg/dL Urine Glucose (UA) >=1000 H (Negative) mg/dL Urine Ketones Negative (Negative) mg/dL Urine Blood Negative (Negative) Urine Nitrite Negative (Negative) Ur Leukocyte Esterase Negative (Negative) Urine RBC 0-2 (0-2) /HPF Urine WBC 0-5 (0-5) /HPF Ur Squamous Epith Cells 0-2 (0-2) /HPF Urine Bacteria None Seen (None Seen) Hyaline Casts 0-2 (0-2) /LPF Discharge Plan Discharge Clinical Impression: Cough Qualifiers: Cough type: chronic Qualified Code(s): R05.3 - Chronic cough Patient Disposition: Home, Self-Care Instructions: Chronic Cough (ED) Additional Instructions: keep appointment with pulmunologist as scheduled,return if worse,you CXR was normal no pneumonia Prescriptions: New Zyrtec 10 mg capsule 10 mg PO DAILY Qty: 10 0RF No Action (DME) lancets [OneTouch UltraSoft Lancets] [facility] See Rx Instructions .ROUTE .MEDSUPPLY Qty: 100 5RF Rx Instructions: As directed once a day (DME) lancets 33 gauge misc See Rx Instructions .Route Qty: 100 3RF Rx Instructions: As directed (DME) DIABETIC SHOES (1 pair) See Rx Instructions .Route .MEDSUPPLY Qty: 2 1RF Rx Instructions: As directed (DME) SHOE INSERTS (3 pairs) See Rx Instructions .Route .MEDSUPPLY Qty: 6 0RF Rx Instructions: As directed cholecalciferol (vitamin D3) 250 mcg (10,000 unit) capsule 250 mcg PO 2XW 90 Days Qty: 26 2RF (DME) blood-glucose meter [OneTouch Ultra2 Meter] [facility] See Rx Instructions .Route Qty: 1 0RF Rx Instructions: As directed (DME) OneTouch Ultra Test Strip See Rx Instructions .ROUTE .MEDSUPPLY Qty: 100 5RF Rx Instructions: As directed once a day metformin 1,000 mg tablet 1,000 mg PO DAILY Qty: 90 1RF famotidine 20 mg tablet 20 mg PO BID 90 Days Qty: 180 1RF (DME) Commode See Rx Instructions .Route .MEDSUPPLY Qty: 1 0RF Rx Instructions: As directed hydrochlorothiazide 12.5 mg capsule 12.5 mg PO DAILY 90 Days Qty: 90 1RF donepezil 5 mg tablet 5 mg PO BEDTIME 30 Days Qty: 30 6RF Glucerna Liquid See Rx Instructions .ROUTE .COMPLEX 30 Days Qty: 90 12RF Rx Instructions: 1 can orally TID with meals; (DME) ADULT PULL UPS (large) large See Rx Instructions .Route .MEDSUPPLY Qty: 100 12RF Rx Instructions: As directed (DME) Ultra-Light Rollator Misc See Rx Instructions .Route Qty: 1 0RF Rx Instructions: As directed melatonin 3 mg tablet 9 mg PO BEDTIME 30 Days Qty: 90 1RF melatonin 3 mg tablet extended release 3 - 6 mg PO .COMPLEX 30 Days Qty: 60 6RF Rx Instructions: 3 - 6 mg orally QHS; (DME) FreeStyle Jermaine 3 Wyocena Misc See Rx Instructions .ROUTE .MEDSUPPLY Qty: 1 1RF Rx Instructions: As directed (DME) FreeStyle Jermaine 3 Sensor Device See Rx Instructions .ROUTE .MEDSUPPLY Qty: 1 1RF Rx Instructions: As directed clonazepam 0.5 mg tablet 0.25 mg PO BEDTIME PRN (Reason: insomnia) 30 Days Qty: 30 1RF Rx Instructions: administer 30 minutes before bedtime, may repeat x's 1 (max daily dose 1 tab) (DME) incontinent wipes / 10 packs See Rx Instructions .Route .MEDSUPPLY Qty: 180 2RF Rx Instructions: As directed (DME) Bed pads See Rx Instructions .Route .MEDSUPPLY Qty: 5 1RF Rx Instructions: As directed (DME) disposable bed pads /10 packs See Rx Instructions .Route .MEDSUPPLY Qty: 60 2RF Rx Instructions: As directed losartan 100 mg tablet 100 mg PO DAILY 90 Days Qty: 90 1RF (DME) Shower handle See Rx Instructions .Route .MEDSUPPLY Qty: 1 0RF Rx Instructions: As directed (DME) Non slip bath mat See Rx Instructions .Route .MEDSUPPLY Qty: 1 0RF Rx Instructions: As directed memantine 21 mg capsule,sprinkle,ER 24hr 21 mg PO DAILY 30 Days Qty: 30 1RF benzonatate 100 mg capsule 100 mg PO TID PRN (Reason: cough) Qty: 20 0RF omeprazole 20 mg capsule,delayed release(DR/EC) 20 mg PO DAILY Qty: 14 0RF azithromycin 250 mg tablet See Rx Instructions .ROUTE .COMPLEX Qty: 6 0RF Rx Instructions: take 500 mg today (day 1), then 250 mg for 4 days (days 2-5) prednisone 20 mg tablet 40 mg PO DAILY 3 Days Qty: 6 0RF polyethylene glycol 3350 [Miralax] 17 gram/dose powder 17 g PO DAILY 30 Days Qty: 510 3RF albuterol sulfate 2.5 mg /3 mL (0.083 %) solution for nebulization 2.5 mg inhalation QID PRN (Reason: shortness of breath or wheezing) 30 Days Qty: 180 3RF dextromethorphan-guaifenesin 10-100 mg/5 mL liquid 10 ml PO Q6H PRN (Reason: cough) Qty: 500 1RF Referrals: Yuri Wilkes MD [Primary Care Provider] - 2 days Print Language: Austrian
[2024-04-21 13:59] VITALS: BP 134/84; PULSE 67; RESP 18; TEMP 36.7; O2SAT 98
[2024-04-21 14:16] LABS: Appearance Urine Clear; Color Urine Yellow; Glucose Urine UA >=1000 mg/dL (Negative); Leukocyte Esterase Urine Negative (Negative); Nitrite Urine Negative (Negative); PH 6.5 (5.0-9.0); Specific Gravity - Urine 1.025 (1.005-1.025); UMIC TRIGGER UACC YES; Urine Blood Negative (Negative); Urine Ketones Negative (Negative); Urine Protein Negative (Neg-Trace)
[2024-04-21 14:20] LABS: Bacteria Urine None Seen (None Seen); Hyaline Casts Urine 0-2 /LPF (0-2); RBC Urine 0-2 /HPF (0-2); Squamous Epithelial Cell Urine 0-2 /HPF (0-2); WBC Urine 0-5 /HPF (0-5)
[2024-04-21 15:53] VITALS: BP 130/80; PULSE 64; RESP 18; TEMP 36.7; O2SAT 97
== END 2024-04-21 15:53 | disposition home or self-care (01) ==
PROVIDERS: Emergency Provider Emergency Medicine; PCP Internal Medicine
DX: R05.9 Cough, unspecified (principal); E11.9 Type 2 diabetes mellitus without complications; I10 Essential (primary) hypertension; Z79.899 Other long term (current) drug therapy; Z79.84 Long term (current) use of oral hypoglycemic drugs
CPT/HCPCS: 36415; 71046; 80048; 81001; 85025; 99283; 99284

== ENCOUNTER 2024-04-26 13:12 | Outpatient (AMB) | payer OTHER, SELFPAY ==
--- NOTE | 2024-04-26 13:15 | A.OFFVIS_ITS ---
Vital Signs 04/26/24 13:16 Height 5 ft 11 in Weight 194 lb 0.108 oz BMI 27.1 BP 132/88 Blood Pressure Location Rt brachial Position Sitting Pulse 58 Pulse Source Pulse Oximeter Pulse Oximetry (%) 98 Oxygen Delivery Method Room Air Intake Visit Reasons: Bronchitis / ED FU [facility] Allergies No Known Allergies [No Known Allergies*] Allergy (Verified 04/26/24 13:19) HPI HPI Bronchitis / ED FU [facility]: Details: Elijah is pleasant 69 year old male, former smoker, with underlying DMII, HTN, JACI not on CPAP, dementia, nasal polyps, renal cell carcinoma s/p partial nephrectomy, and 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 He was referred by [facility] ED after recent evaluation for chronic cough. He is accompanied by who provides HPI given h/o dementia. Reports dry cough since beginning March treated with zpak, prednisone with minimal effect and recently started Zyrtec famotidine and nasal spray. He has been using albuterol 1 to 2 times a day with suboptimal effect. He has been evaluated in the emergency room as well as urgent care with no significant findings on chest x-ray and respiratory panel negative. She denies any wheezing and reports no notable labored breathing with exertion. She does report hearing occasional crackles with cough. Denies any known allergies however has not had any allergy testing and has a h/o nasal polyps. Denies any history of asthma. Denies any pertinent family history. Denies any occupational exposures. [facility] Medical History Cerebral amyloid angiopathy Obstructive sleep apnea Overweight (BMI 25.0-29.9) Alzheimer's dementia Depression Vitamin D deficiency Memory impairment Renal cell carcinoma of right kidney Essential hypertension Type 2 diabetes mellitus with unspecified complications H/O malignant neoplasm of small intestine Diverticula of colon Kidney mass Anemia Diabetes Hypertension Surgical History Hx of colonoscopy Hx of kidney removal History of esophagogastroduodenoscopy (EGD) H/O sinus surgery Family History Father No problems noted. Mother Heart disease Pancreas cancer Maternal Grandmother Stomach cancer Social History Household Members: Spouse Housing: Apartment Are you a primary primary care sales representative to a significant other at home: No Do you presently have visiting nurse or other home services: No Alcohol intake: former Comment: given as premed Patient Tobacco Use Status: Former Tobacco user Tobacco use type: Cigar e-Cigarette/Vaping Use: Never Used Second Hand Smoke Exposure: No Advance Directives Date on File: 09/12/20 service: No Current occupational status: retired Cognitive needs: No Hearing needs: No Vision needs: Yes (glasses) Review of Systems Const Denies chills, Denies excessive sweating, Denies fever(s), Denies headache(s) and Denies night sweats Eyes Denies dry eyes, Denies irritation and Denies itchy eyes ENT Reports Normal hearing present and Denies headache(s) Card Denies chest pain, Denies chest pain at rest, Denies chest pain with activity, Denies claudication, Denies leg edema, Denies dyspnea, Denies dyspnea on exertion, Denies orthopnea and Denies paroxysmal nocturnal dyspnea Resp Denies chest congestion, Denies excessive phlegm production, Denies pain on inspiration, Denies pain with cough, Denies dyspnea, Denies dyspnea on exertion, Denies stridor and Denies wheezing Musc Denies myalgias Neuro Reports Normal hearing present and Denies headache(s) Endo Denies excessive sweating Denis/Lymph Denies lymphadenopathy Aller/Immun Denies itchy eyes, Denies seasonal rhinorrhea and Denies wheezing Physical Exam Vital Signs: Last Vital Signs Pulse 58 04/26/24 13:16 BP 132/88 04/26/24 13:16 Pulse Ox 98 04/26/24 13:16 Oxygen Delivery Method Room Air 04/26/24 13:16 BMI result Body Mass Index 27.1 Const General: cooperative, healthy appearing, comfortable, no acute distress, well developed and alert Nutritional Appearance: obese Orientation/consciousness: patient oriented x3 Limitations: no limitations HEENT Head: Yes normal to inspection, Yes normocephalic and Yes atraumatic Ears: hearing grossly normal bilaterally and external ears normal Eyes General: appearance normal, both eyes and all related structures Eyelids: Yes eyelids normal Sclerae: sclerae normal EOM: EOMs intact bilaterally Neck Neck: Yes normal visual inspection and Yes no lymphadenopathy Lymphatic: no lymphadenopathy noted Chest Chest palpation & inspection: normal inspection of the chest Resp Effort & Inspection: normal respiratory effort, able to speak in complete sentences, no audible wheezes, no cough, no stridor, not tachypneic, no tripod positioning and no use of accessory muscles Auscultation: diminished lung sounds Cardio Jugular venous distension: no JVD Rate: regular rate Rhythm: regular rhythm Skin Other: warm, dry General skin exam: no rashes or lesions noted Neuro General: patient oriented x3 Cranial nerves: Yes Normal hearing present Cognition (Neuro): normal cognition Gait exam (Neuro): Normal gait present Extrem General: Yes normal to inspection, Yes capillary refill normal, Yes no clubbing, cyanosis or edema and Yes no pedal edema Psych Appearance: grossly normal and well kempt Speech and movement: Normal speech and movement present and Clear speech present Affect: normal affect Attitude: cooperative Thought process: Normal thought process present Thought content: Normal thought content present Insight: Good insight present (Psych) Judgement: Good judgement present (Psych) Results Reviewed Results Reviewed: [place] [id number] XRay Report Signed Patient: Elijah Bearden MR#: [id number] : 1955 Acct:[id number] Age/Sex: 69 / M ADM Date: 04/21/24 Loc: .ED Attending Dr: Ordering Physician: Generic ED Physician Date of Service: 04/21/24 Procedure(s): XR chest 2V Accession Number(s): [id number] cc: Yuri Wilkes MD; Generic ED Physician~ EXAMINATION: XR CHEST 2 VIEW CLINICAL INFORMATION: Dry hacking cough COMPARISON: 03/24/2024 TECHNIQUE: PA and lateral views of the chest obtained. FINDINGS: The lungs are clear. There are no pleural effusions. The cardiomediastinal silhouette is normal. XR/XR chest 2V IMPRESSION: No acute cardiopulmonary disease. Electronically signed by: Pranay Han MD 04/21/2024 01:27 PM EDT Dictated By: Pranay Han MD Signed By: <Electronically signed by Pranay Han MD in OV> 04/21/24 1327 DD/ 1008 TD/TT: 04/21/24 1035 Archival Studies Professor: Assessment & Plan Assessment & Plan (1) Cough: Code(s): R05.9 - Cough, unspecified Category: Medical (2) Environmental allergies: Code(s): Z91.09 - Other allergy status, other than to drugs and biological substances Category: Medical Plan Elijah presents for evaluation ongoing cough for the past 6 weeks. Prior imaging has been unremarkable. There may be an underlying component of asthma and allergies contributing to symptoms. Will send for RAST testing. Given patient's dementia will likely be unable to perform PFT. Will empirically trial with ICS. Discussed importance of good oral hygiene to prevent thrush. If cough persists despite use of ICS, flonase and antihistamines, will consider chest CT. All questions were answered and patient is in agreement of plan. Will follow-up to review response to inhaler and results. Orders: Orders Resp Allergy Profile Region I Today Z91.09 - Other allergy status, other than to drugs and biological substances Immunoglobulin E Today Z91.09 - Other allergy status, other than to drugs and biological substances Medications: New fluticasone furoate 100 mcg/actuation (Arnuity Ellipta) 1 inh inhalation DAILY 30 ea 6RF fluticasone propionate 50 mcg/actuation administer into each nostril 1 spray intranasal BID 16 grams 2RF Coding Level of Care Code New Pt Level 4 (36359) Diagnoses Cough R05.9 Environmental allergies Z91.09
[2024-04-26 13:16] VITALS: BP 132/88; PULSE 58; O2SAT 98; BMI 27.1
== END 2024-04-26 13:55 | disposition home or self-care (01) ==
PROVIDERS: PCP Internal Medicine; Referring Provider Physician Assistant; Visit Provider Nurse Practitioner Family
DX: R05.9 Cough, unspecified (principal); Z91.09 Other allergy status, other than to drugs and biological substances
CPT/HCPCS: 99204

== ENCOUNTER 2024-04-26 13:12 | Outpatient (REF) | payer OTHER, SELFPAY ==
[2024-04-26 14:19] LABS: MANUAL DIFF FLAG NO
[2024-04-26 14:43] LABS: Basophils Absolute Auto 0.1 X10*3/uL (0.0-0.2); Basophils Percent Auto 0.6 % (0-2); Eosinophils Absolute Auto 0.1 X10*3/uL (0.0-0.4); Eosinophils Percent Auto 1.2 % (0-4); Hematocrit 44.6 % (42.0-52.0); Hemoglobin 15.5 g/dl (14.0-18.0); Imm Gran Abs Auto 0.02 X10*3/uL (0.00-0.03); Imm Gran Pct Auto 0.2 % (0.0-0.4); Lymphocytes Absolute Auto 2.8 X10*3/uL (1.2-4.9); Mean Corpuscular HGB Conc 34.8 g/dl (31.0-36.0); Mean Corpuscular Hemoglobin 30.5 pg (27.0-33.0); Mean Corpuscular Volume 87.6 fL (80.0-98.0); Mean Platelet Volume 9.5 fL (9.4-12.4); Monocytes Absolute Auto 0.6 X10*3/uL (0.1-1.2); Monocytes Percent Auto 6.8 % (2-11); Neutrophils Absolute Auto 5.7 x10*3/uL (2.0-8.3); Neutrophils Percent Auto 61.2 % (45-73); Platelet Count 298 X10*3/uL (160-400); Red Blood Count 5.09 X10*6/uL (4.60-5.80); Red Cell Distribution Width 12.5 % (11.0-16.0); White Blood Count 9.3 X10*3/uL (4.8-10.8)
[2024-04-26 14:46] LABS: Appearance Urine Clear; Color Urine Yellow; Glucose Urine UA 500 mg/dL (Negative); Leukocyte Esterase Urine Negative (Negative); Nitrite Urine Negative (Negative); PH 5.5 (5.0-9.0); Urine Blood Negative (Negative); Urine Ketones Negative (Negative); Urine Protein Negative (Neg-Trace)
[2024-04-26 14:47] LABS: Estimated Average Glucose 171 mg/dL; Hemoglobin A1C 233.0641 umol/L; Hemoglobin A1c % 7.6 % (<6.0); Total Hemoglobin (HGBA1C) 3941.1419 umol/L
[2024-04-26 15:14] LABS: Alanine Aminotransferase 24 U/L (0-40); Albumin Level 4.3 g/dL (3.5-5.0); Alkaline Phosphatase 82 U/L (39-117); Anion Gap 10 (12-20); Aspartate Amino Transferase 19 U/L (5-37); Bilirubin Total 0.5 mg/dL (0.0-1.0); Blood Urea Nitrogen 13 mg/dL (9-16); Calcium 10.3 mg/dL (8.4-10.2); Carbon Dioxide 30 mmol/L (22-29); Chloride 104 mmol/L (96-108); Cholesterol 158 mg/dL (<200); Estimated Glomerular Filt Rate 58; Glucose Fasting 118 mg/dL (60-99); HDL Cholesterol 44 mg/dL (>40); LDL Cholesterol Calculated 86 mg/dL (<100); Potassium 4.2 mmol/L (3.3-5.1); Sodium 140 mmol/L (135-145); Total Protein 7.5 g/dL (6.5-8.0); Triglycerides 144 mg/dL (<150)
[2024-04-26 15:38] LABS: TSH reflex Free T4 1.09 uIU/mL (0.32-4.0); Vitamin D 25-OH Total 51.4 ng/mL (>30)
[2024-04-26 15:50] LABS: Folate 9.1 ng/mL (> or = 4.0); Vitamin B12 538 pg/mL (200-900)
[2024-04-26 15:51] LABS: Creatinine Urine 142.44 mg/dL; Microalbum/Creatinine Ratio Ur 4.9 ug/mg cr (<30)
[2024-04-27 20:03] LABS: Class Alternaria alternata 0; Class Aspergillus fumigatus 0; Class Bermuda Grass 0; Class Birch 0; Class Cat Dander 0; Class Cladosporium herbarum 0; Class Cockroach 0; Class Common Ragweed 0; Class Cottonwood 0; Class Derm. pterony 0; Class Dermatophagoides farinae 0; Class Dog Dander 0; Class Elm 0; Class Maple Box Elder 0; Class Mountain Cedar 0; Class Mouse Urine Protein 0; Class Mugwort 0; Class Oak 0; Class Penicillium crysogenum 0; Class Rough Pigweed 0; Class Sheep Sorrel 0; Class Sycamore 0; Class Timothy Grass 0; Class Walnut Tree 0; Class White Ash 0; Class White Mulberry 0; D001 IgE D pteronyssinus <0.10 kU/L; D002 - IgE D farinae <0.10 kU/L; E001 - IgE Cat Dander <0.10 kU/L; E005 - IgE Dog Dander <0.10 kU/L; E072-IgE Mouse Urine <0.10 kU/L; G002 IgE Bermuda Grass <0.10 kU/L; G006 - IgE Timothy Grass <0.10 kU/L; I006-IgE Cockroach, German <0.10 kU/L; Immunoglobulin E 3 kU/L (<OR=114); M001 IgE Penicillium chrysogen <0.10 kU/L; M002 - IgE Cladosporium herbar <0.10 kU/L; M003 - IgE Aspergillus fumigat <0.10 kU/L; M006 - IgE Alternaria alternat <0.10 kU/L; T001 IgE Maple/Box Elder <0.10 kU/L; T003 IgE Common Silver Birch <0.10 kU/L; T006 - IgE Cedar, Mountain <0.10 kU/L; T007 - IgE Oak, White <0.10 kU/L; T008 IgE Elm, American <0.10 kU/L; T010 - IgE Walnut <0.10 kU/L; T011 - IgE Maple Leaf Sycamore <0.10 kU/L; T014 - IgE Cottonwood <0.10 kU/L; T015 - IgE Ash, White <0.10 kU/L; T070 - IgE White Mulberry <0.10 kU/L; W001 - IgE Ragweed, Short <0.10 kU/L; W006 - IgE Mugwort <0.10 kU/L; W014 IgE Pigweed, Common <0.10 kU/L; W018 IgE Sheep Sorrel <0.10 kU/L
== END 2024-04-26 13:13 | disposition home or self-care (01) ==
LOC: HO.LAB 13:12
PROVIDERS: PCP Internal Medicine; Referring Provider Physician Assistant; Visit Provider Nurse Practitioner Family
DX: E78.00 Pure hypercholesterolemia, unspecified (principal); E11.9 Type 2 diabetes mellitus without complications; D64.9 Anemia, unspecified; R30.0 Dysuria; E53.8 Deficiency of other specified B group vitamins; E55.9 Vitamin D deficiency, unspecified; J40 Bronchitis, not specified as acute or chronic; J98.8 Other specified respiratory disorders; R05.3 Chronic cough; G47.33 Obstructive sleep apnea (adult) (pediatric); Z91.09 Other allergy status, other than to drugs and biological substances; Z87.891 Personal history of nicotine dependence
CPT/HCPCS: 36415; 80053; 80061; 81003; 82043; 82306; 82570; 82607; 82746; 82785; 83036; 84443; 85025; 86003; 99202

== ENCOUNTER 2024-05-17 08:18 | Outpatient (REF) | payer OTHER, SELFPAY ==
[2024-05-17 09:48] LABS: Alanine Aminotransferase 18 U/L (0-40); Albumin Level 4.3 g/dL (3.5-5.0); Alkaline Phosphatase 77 U/L (39-117); Anion Gap 12 (12-20); Aspartate Amino Transferase 16 U/L (5-37); Bilirubin Total 0.9 mg/dL (0.0-1.0); Blood Urea Nitrogen 14 mg/dL (9-16); Calcium 9.9 mg/dL (8.4-10.2); Carbon Dioxide 30 mmol/L (22-29); Chloride 102 mmol/L (96-108); Estimated Glomerular Filt Rate 50; Glucose Random 199 mg/dL (60-115); Potassium 4.1 mmol/L (3.3-5.1); Sodium 140 mmol/L (135-145); Total Protein 7.9 g/dL (6.5-8.0)
[2024-05-18 14:53] LABS: Homocysteine 16.8 umol/L (<11.4)
[2024-05-19 00:08] LABS: Immunoglobulin E 4 kU/L (<OR=114)
== END 2024-05-17 08:19 | disposition home or self-care (01) ==
LOC: HO.LAB 08:18
PROVIDERS: Nurse Practitioner Family; Psychiatry & Neurology Neurology; PCP Internal Medicine; Visit Provider Internal Medicine
DX: C64.1 Malignant neoplasm of right kidney, except renal pelvis (principal); F03.90 Unspecified dementia, unspecified severity, without behavioral disturbance, psychotic disturbance, mood disturbance, and anxiety; E78.5 Hyperlipidemia, unspecified; D64.9 Anemia, unspecified; Z91.09 Other allergy status, other than to drugs and biological substances
CPT/HCPCS: 36415; 80053; 82785; 83090

== ENCOUNTER 2024-05-19 11:02 | Outpatient (RCR) | payer OTHER, SELFPAY ==
--- NOTE | 2024-05-12 15:45 | MHC.PT.EP ---
[facility] [place] Office [place] Office [place] Office [address] [phone] F: [phone] F: [phone] F: [phone] F: [phone] Physical Therapy Plan of Care Date of Evaluation: 05/11/24 Date of Surgery: N/A Diagnosis: abnormalities of gait and mobility (RL) cerebral amyloid angiopathy/dementia Assessment: pt is a 69 y/o male presenting to physical therapy w/ referring diagnosis of abnormalities of gait and mobility. He has concomitant diagnoses of cerebral amyloid angiopathy most likely causing dementia. I do not anticipate PT intervention is going to make a significant improvement in his function as during the evaluation he had tremendous difficulty following commands and staying on task. He would benefit from a speech therapy referral to determine cognitive status. Impairments include pain, decreased range of motion, decreased strength, impaired functional mobility, impaired postural awareness, and altered ambulation mechanics. pt is a poor candidate for skilled PT due to age, potential remediation of impairments, typical disease/condition progression and prognosis, comorbidities, and motivation. pt would benefit from skilled PT intervention to provide a tailored strengthening and stretching exercise program, functional training, gait training, postural re-training, neuromuscular re-education, modalities as needed for pain, equipment safety demonstration. Frequency and Duration: The patient will be seen 2x/wk for 3 wks Short Term Goals: pt will improve B quad strength to 5/5 to promote ease in sit<>stand transfers. Trauma Manager Goals: pt will improve 5xSTS by at least 12 seconds to reduce fall risk. pt will demo safe ambulation mechanics w/ either a SPC or walker/rollator close supervision level to reduce caregiver burden. Treatment Plan: Modalities to reduce pain, spasms and effusion. Manual therapy to restore motion and function. Therapeutic exercise to improve strength and flexibility. Neuromuscular re-education for posture and balance. Therapeutic activities to return to functional activities of daily living. Electronically signed by: Natasha Matute PT, DPT Please sign and return to therapist. Thank you for your referral.
[2024-05-19 11:25] LABS: Appearance Urine Clear; Color Urine Yellow; Glucose Urine UA Negative (Negative); Leukocyte Esterase Urine Negative (Negative); Nitrite Urine Negative (Negative); PH 6.5 (5.0-9.0); Specific Gravity - Urine 1.015 (1.005-1.025); Urine Blood Negative (Negative); Urine Ketones Negative (Negative); Urine Protein Negative (Neg-Trace)
[2024-05-19 11:53] LABS: Creatinine Urine 160.06 mg/dL; Microalbum/Creatinine Ratio Ur 3.1 ug/mg cr (<30)
--- NOTE | 2024-06-02 11:40 | MHC.PT.DC ---
[facility] [place] [facility] [place] Office [place] Office [address] [place] 140 [facility] [phone] F: [phone] F: [phone] F: [phone] F: [phone] Physical Therapy Discharge Report Diagnosis: abnormalities of gait and mobility (RL) cerebral amyloid angiopathy/dementia Date of Surgery: N/A Date of Evaluation: 05/11/24 Date of Discharge: 06/02/24 Treatments to Date: 4 Cancellations to Date: 2 No Shows to Date: 0 Discharge Status: Patient Elected to Stop Discharge Summary: The patient overall was a poor candidate for outpatient physical therapy. Unfortunately, his dementia has advanced to the point where he is limited in providing appropriate feedback and cannot react to cueing consistently. His family did call to cancel his last two appointments. He is discharged from this physical therapy plan of care. Electronically signed by: Natasha Matute PT, DPT Please sign and return to therapist. Thank you for your referral.
== END 2024-06-02 11:40 | disposition home or self-care (01) ==
LOC: HO.PT 11:02
PROVIDERS: PCP Internal Medicine; Visit Provider Nurse Practitioner Family
DX: R25.8 Other abnormal involuntary movements (principal); R26.9 Unspecified abnormalities of gait and mobility; E85.4 Organ-limited amyloidosis
CPT/HCPCS: 81003; 82043; 82570; 97110; 97116; 97162

== ENCOUNTER 2024-05-19 12:22 | Outpatient (AMB) | payer OTHER, SELFPAY ==
[2024-05-19 12:32] VITALS: BP 122/84; PULSE 85; O2SAT 97; BMI 26.9
--- NOTE | 2024-05-19 12:32 | MHC.PC.OV ---
Vital Signs 05/19/24 12:32 Height 5 ft 11 in Weight 193 lb BMI 26.9 BP 122/84 Blood Pressure Location Lt brachial Position Sitting Pulse 85 Pulse Source Pulse Oximeter Pulse Oximetry (%) 97 Oxygen Delivery Method Room Air Intake Visit Reasons: 4 month f/u Dag Sprayer Required: No Accompanied by: Self / Same As Patient Allergies No Known Allergies [No Known Allergies*] Allergy (Verified 05/19/24 12:53) Medication List - Last Reconciled 05/19/24 by Yuri Wilkes MD [ADULT PULL UPS (large) As directed] albuterol sulfate 2.5 mg (3 mL) inhalation QID PRN 30 days [Bed pads As directed] blood sugar diagnostic (BrandMaker Ultra Test strips) As directed once a day blood-glucose meter (BrandMaker Ultra2 Meter) As directed blood-glucose meter,continuous (Allthetopbananas.comStyle Jermaine 3 Himrod) As directed blood-glucose sensor (FreeStyle Jermaine 3 Sensor device) As directed carbidopa-levodopa 25-100 mg 0.5 - 1 tabs PO BID 30 days cetirizine (Zyrtec) 10 mg PO DAILY cholecalciferol (vitamin D3) 250 mcg PO 2XW 90 days clonazepam 0.25 mg (1/2 x 0.5 mg) PO BEDTIME PRN 30 days [Commode As directed] dextromethorphan-guaifenesin 10-100 mg/5 mL 10 mL PO Q6H PRN [DIABETIC SHOES (1 pair) As directed] [disposable bed pads /10 packs As directed] famotidine 20 mg PO BID 90 days fluticasone furoate 100 mcg/actuation (Arnuity Ellipta) 1 inh inhalation DAILY fluticasone propionate 50 mcg/actuation 1 spray intranasal BID hydrochlorothiazide 12.5 mg PO DAILY 90 days [incontinent wipes / 10 packs As directed] lancets (Noknokeruch UltraSoft Lancets) As directed once a day lancets As directed losartan 100 mg PO DAILY 90 days melatonin 9 mg (3 x 3 mg) PO BEDTIME 30 days melatonin ER 3 - 6 mg orally QHS; 30 days memantine 21 mg PO DAILY 30 days metformin 1,000 mg PO DAILY [Non slip bath mat As directed] nut.tx.gluc.intol,lac-free,soy (Glucerna oral liquid) 1 can orally TID with meals; 30 days omeprazole 20 mg PO DAILY polyethylene glycol 3350 (Miralax) 17 grams PO DAILY 30 days [SHOE INSERTS (3 pairs) As directed] [Shower handle As directed] walker (Ultra-Light Rollator misc) As directed Tobacco use date assessed: 05/19/24 Fall risk assessment: No Falls in past year Last assessed Fall Risk: 05/19/24 Dental Screening Dental Screen Date: 05/19/24 Did you have a dental visit in the last 12 months?: Yes Did you have a dental problem in the last 6 months where you did not have access to dental care?: No Was dental information given to patient?: Patient has dentist HPI 4 month f/u HPI Details Patient comes in today for his follow up visit - is as usual accompanied by his , who helps with his visit and provides most of patient's information and complaints as patient is limited in his ability to participate actively with his visit due to his dementia Patient states that he feels okay He denies any headaches or dizziness Denies any chest pains, no increased shortness of breath He still has on and off cough but this seems to have improved somewhat with the inhaler that he was started on by Pulmonary last month He was sent also for allergy testing but his allergy testing looks like they all came back normal No nausea/vomiting, no abdominal pain No change in bowel habits noted He had his follow-up labs done a couple of days ago - to discuss his results [facility] Medical History Cerebral amyloid angiopathy Obstructive sleep apnea Overweight (BMI 25.0-29.9) Alzheimer's dementia Depression Vitamin D deficiency Memory impairment Renal cell carcinoma of right kidney Essential hypertension Type 2 diabetes mellitus with unspecified complications H/O malignant neoplasm of small intestine Diverticula of colon Kidney mass Anemia Diabetes Hypertension Surgical History Hx of colonoscopy Hx of kidney removal History of esophagogastroduodenoscopy (EGD) H/O sinus surgery Family History Father No problems noted. Mother Heart disease Pancreas cancer Maternal Grandmother Stomach cancer Social History Household Members: Spouse Housing: Apartment Are you a primary insurance healthcare representative to a significant other at home: No Do you presently have visiting nurse or other home services: No Alcohol intake: former Comment: given as premed Patient Tobacco Use Status: Former Tobacco user Tobacco use type: Cigar e-Cigarette/Vaping Use: Never Used Second Hand Smoke Exposure: No Advance Directives Date on File: 09/12/20 service: No Current occupational status: retired Cognitive needs: No Hearing needs: No Vision needs: Yes (glasses) Questionnaire PHQ-9 Over the last 2 weeks, how often have you been bothered by any of the following problems? 1. Little interest or pleasure in doing things: not at all 2. Feeling down, depressed, or hopeless: not at all 3. Trouble falling or staying asleep, or sleeping too much: not at all 4. Feeling tired or having little energy: not at all 5. Poor appetite or overeating: not at all 6. Feeling bad about yourself - or that you are a failure or have let yourself or your family down: not at all 7. Trouble concentrating on things, such as reading the newspaper or watching television: not at all 8. Moving or speaking so slowly that other people could have noticed. Or the opposite - being so fidgety or restless that you have been moving around a lot more than usual: not at all 9. Thoughts that you would be better off or of hurting yourself in some way: not at all Total score: 0 Depression Screening Interpretation: Negative Depression Screening Done: Yes 66933 - PHQ-9 Billing: Yes Source: Developed by Drs. Ashkan Henning, Heena Raphael, Rafiq Cristina and colleagues, with an educational edwige from [employer]. Thrive Questionnaire Date Thrive assessed: 05/19/24 I am a: Patient What is your living situation today?: I have a steady place to live Within the past 12 months, did the food you bought not last and you didn't have the money to get more?: Never true Within the past 12 months, did you worry whether your food would run out before you got money to buy more?: Never true Do you have trouble paying for medicines?: No Do you have trouble getting transportation to medical appointments?: No Do you have trouble paying your heating and electricity bill?: No Do you have trouble taking care of your child, family member or friend?: No Do you have trouble with day-to-day activities such as bathing, preparing meals, shopping, managing finances, etc.?: No Are you currently unemployed and looking for a job?: No Are you interested in more education?: No Please select the resources that you would like help with: None Currently or been in a relationship where the following occur: No concerns reported THRIVE Score: 0 AUDIT C Alcohol Use Questionnaire (AUDIT-C) 1. How often do you have a drink containing alcohol?: Never 3. How often do you have six or more drinks on one occasion?: Never Total Score: 0 Score Reviewed/Action Taken: Yes LAURA-7 AMB Questionnaire LAURA-7 Date LAURA - 7 assessed: 05/19/24 Feeling nervous, anxious, or on edge: 0 = Not at all Not being able to stop or control worryin = Not at all Worrying too much about different things: 0 = Not at all Trouble relaxin = Not at all Being so restless that it is hard to sit still: 0 = Not at all Becoming easily annoyed or irritable: 0 = Not at all Feeling afraid as if something awful might happen: 0 = Not at all Total LAURA-7 score (0-4 normal; 5-9 mild; 10-14 moderate; 15-21 severe): 0 Source: Developed by Drs. Ashkan Henning, Heena Raphael, Rafiq Cristina and colleagues, with an educational edwige from [employer]. Review of Systems Const Denies chills, Denies difficulty sleeping (sleeping better with his CPAP device), Denies fatigue, Denies fever(s) and Denies headache(s) ENT Denies dysphagia, Denies dizziness, Denies otalgia, Denies headache(s), Denies neck pain, Denies odynophagia and Denies sore throat Card Denies chest pain, Denies palpitations and Denies dyspnea Resp Denies chest congestion, Reports cough (recurrent - started up again last night), Denies dyspnea and Denies wheezing GI Denies abdominal pain, Denies constipation (better controlled on Rx), Denies dysphagia, Denies heartburn, Denies diarrhea, Denies nausea, Denies odynophagia and Denies vomiting Denies dysuria, Denies nocturia and Denies urinary frequency Musc Denies back pain and Denies neck pain Skin/Breast Denies rash Neuro Denies behavioral changes, Reports confusion (on and off), Denies dizziness, Denies headache(s) and Reports memory loss (very forgetful) Psych Denies behavioral changes, Reports confusion (on and off) and Reports memory loss (very forgetful) Endo Denies fatigue and Denies palpitations Aller/Immun Denies wheezing Physical exam (Primary Care) Vital Signs: Last Vital Signs Pulse 85 05/19/24 12:32 BP 122/84 05/19/24 12:32 Pulse Ox 97 05/19/24 12:32 Oxygen Delivery Method Room Air 05/19/24 12:32 BMI result Body Mass Index 26.9 Tobacco/Smoking Status: Tobacco use Status Tobacco use date assessed 05/19/24 05/19/24 12:38 Patient Tobacco Use Status Former Tobacco user 05/19/24 12:38 Tobacco use type Cigar 05/19/24 12:38 e-Cigarette/Vaping Use Never Used 05/19/24 12:38 PHQ-9: PHQ-9 Score PHQ-9: Total score 0 05/19/24 12:55 Depression Screening Interpretation: Negative Thrive Assessment: Date of Thrive Assessment Date Thrive assessed 05/19/24 05/19/24 12:38 Currently or been in a relationship where the following occur: No concerns reported Const General: confusion (on and off) Orientation/consciousness: confusion (on and off) HENMS Ears: TM's normal bilaterally and EAC's normal Throat: Yes posterior oropharynx normal and Yes tonsils normal (no TP congestion) Neck Neck: Yes no lymphadenopathy and Yes supple Thyroid: Thyroid normal Resp Auscultation: clear to auscultation bilaterally, no rales and no wheezes Cardio Rate: regular rate Rhythm: regular rhythm Heart sounds: no murmurs GI Palpation (GI): Soft to palpation and nontender Auscultation: normal bowel sounds General: Yes no CVA tenderness Back/Spine/Pelvis Back: no CVA tenderness Skin Rashes: no rashes Neuro General: confusion (on and off) Extrem General: Yes no clubbing, cyanosis or edema Results Reviewed Results Reviewed: Laboratory Tests 04/26/24 05/17/24 05/19/24 14:17 08:49 09:30 WBC 9.3 Hgb 15.5 Hct 44.6 Plt Count 298 Sodium 140 Potassium 4.1 Creatinine 1.41 H Estimated GFR 50 Fasting Glucose 118 H Hemoglobin A1c % 7.6 H Calcium 9.9 AST 16 ALT 18 Albumin 4.3 Triglycerides 144 Cholesterol 158 LDL Cholesterol, Calc 86 HDL Cholesterol 44 Vitamin B12 538 25-OH Vitamin D Total 51.4 Homocysteine 16.8 H TSH 1.09 Ur Specific Peterson 1.015 Urine Protein Negative Urine Glucose (UA) Negative Urine Blood Negative Urine Nitrite Negative Ur Leukocyte Esterase Negative Coding Level of Care Code Est Pt Level 4 (79125) Complex EM visit Add On G2211 Diagnoses Alzheimer's dementia without behavioral disturbance, psychotic disturbance, mood disturbance, or anxiety, unspecified dementia severity, unspecified timing of dementia onset G30.9; F02.80 Alzheimer's disease onset: unspecified onset Dementia behavioral or psychological symptom: without behavioral, psychotic, or mood disturbance or anxiety Dementia severity: unspecified severity Type 2 diabetes mellitus with unspecified complications E11.8 Essential hypertension I10 Recurrent cough R05.8 Renal cell carcinoma of right kidney C64.1 H/O malignant neoplasm of small intestine Z85.068 Gastritis without bleeding, unspecified chronicity, unspecified gastritis type K29.70 Chronicity: unspecified Gastritis bleeding: without bleeding Gastritis type: unspecified gastritis Obstructive sleep apnea G47.33 Vitamin D deficiency E55.9 Episode of recurrent major depressive disorder, unspecified depression episode severity F33.9 Active/Remission status: currently active Depression Type: major depressive disorder Major depression episode severity: unspecified Major depression recurrence: recurrent Overweight (BMI 25.0-29.9) E66.3 Additional Codes PHQ-9 - 26699 - PHQ-9 Billing: Yes ([id number]) Assessment & Plan Assessment & Plan (1) Alzheimer's dementia: Code(s): G30.9 - Alzheimer's disease, unspecified; F02.80 - Dementia in other diseases classified elsewhere, unspecified severity, without behavioral disturbance, psychotic disturbance, mood disturbance, and anxiety Category: Medical Qualifiers: Alzheimer's disease onset: unspecified onset Dementia behavioral or psychological symptom: without behavioral, psychotic, or mood disturbance or anxiety Dementia severity: unspecified severity Qualified Code(s): G30.9 - Alzheimer's disease, unspecified; F02.80 - Dementia in other diseases classified elsewhere, unspecified severity, without behavioral disturbance, psychotic disturbance, mood disturbance, and anxiety Plan: CT head done in 2020 revealed (+) mild to moderate frontoparietal cortical atrophy Patient used to see Dr. Bradley for neurology follow up but switched over to [facility] [place] Neurology a few months ago Repeat brain MRI done back in June 2023 revealed (+) mild to moderate cerebral volume loss with associated ventricular and sulcal prominence and mild to moderate chronic microvascular ischemic changes. There were also findings suggestive of cerebral amyloid angiopathy Continue Donepezil 5 mg QD and Memantine 21 mg QD Follow up with neurology as scheduled (2) Type 2 diabetes mellitus with unspecified complications: Code(s): E11.8 - Type 2 diabetes mellitus with unspecified complications Category: Medical Plan: Results of his labs done a couple of days ago reviewed and discussed with patient and his His HgbA1c was at 7.6% when last checked about a month ago (was previously at 8.1% a few months ago) - goal is at least < 7.0% Reinforced diabetic diet - have again advised patient's to help him with this and take charge of his diet as patient would not be able to do this on his own due to his dementia Continue Metformin 1000 mg QD for now but discussed that we may need to increase this to BID dosing if he still cannot get his glycemic control to goal (3) Essential hypertension: Code(s): I10 - Essential (primary) hypertension Category: Medical Plan: Reinforced low sodium diet - goal is systolic BP of at least 130 mm or less Continue Losartan 100 mg QD and HCTZ 12.5 mg QD; he used to also take Amlodipine 2.5 mg QD but this was discontinued a few months ago and he has been doing well since (4) Recurrent cough: Code(s): R05.8 - Other specified cough Category: Medical Plan: Still unclear at this time whether this is just due to allergies or some reactive airway disease He recently underwent allergy testing, which came back normal He has been started on a trial of Arnuity Ellipta 100 mcg 1 inhalation once a day with some improvement of his recurrent cough He is also on Albuterol HFA 1-2 inhalation 4 times a day as needed in Cetirizine 10 mg QD Follow-up with pulmonary as scheduled (5) Renal cell carcinoma of right kidney: Comment: Clear cell carcinoma, pathological staging pT1a pNx Code(s): C64.1 - Malignant neoplasm of right kidney, except renal pelvis Category: Medical Plan: S/P partial nephrectomy on 12/27/2020 - tumor was limited to the kidney, with nosarcomatoid features, no tumor necrosis or lymphovascular invasion and margins are negative Follow up with urology as scheduled for continuing surveillance (6) 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, AJCC stage III S/P small bowel resection (distal jejunum, proximal ileum and mesentery) and primary small bowel anastomosis on 02/23/2020 Completed adjuvant chemotherapy with modified FOLFOX regimen from 03/2020 to September 2020 Code(s): Z85.068 - Personal history of other malignant neoplasm of small intestine Category: Medical Plan: Diagnosed in 2019 S/P surgical resection and adjuvant chemotherapy Follow up with oncology and GI as scheduled for continuing surveillance and monitoring (7) Gastritis: Code(s): K29.70 - Gastritis, unspecified, without bleeding Category: Medical Qualifiers: Chronicity: unspecified Gastritis bleeding: without bleeding Gastritis type: unspecified gastritis Qualified Code(s): K29.70 - Gastritis, unspecified, without bleeding Plan: Dietary restrictions reinforced; his previous abdominal symptoms have improved with Rx Continue Omeprazole 20 mg QD and Famotidine 20 mg BID PRN (8) Obstructive sleep apnea: Comment: Mild degree of sleep apnea. The AHI was 08/hr and oxygen bucky was 87%. Code(s): G47.33 - Obstructive sleep apnea (adult) (pediatric) Category: Medical Plan: Patient had a home sleep study done in July 2023 that revealed mild JACI He was recommended to try an oral device first prior to transitioning to AutoPap recommended at 5 to 15 cm H2O Follow up with Sleep Medicine as scheduled (9) Vitamin D deficiency: Code(s): E55.9 - Vitamin D deficiency, unspecified Category: Medical Plan: Continue Vitamin D3 250 mcg 2 times a week Will recheck his Vitamin D level in 4 months for follow up (10) Depression: Code(s): F32.A - Depression, unspecified Category: Medical Qualifiers: Active/Remission status: currently active Depression Type: major depressive disorder Major depression episode severity: unspecified Major depression recurrence: recurrent Qualified Code(s): F33.9 - Major depressive disorder, recurrent, unspecified Plan: Continue Quetiapine 12.5 mg BID (11) Overweight (BMI 25.0-29.9): Code(s): E66.3 - Overweight Category: Medical Plan: Reinforced diet; exercise and weight loss are not realistic but have encouraged patient (and his family to help him) stay active as much as he can Plan Follow up in 4 months Orders: Orders Comprehensive Placida. Panel Fast 4 Months E78.00 - Pure hypercholesterolemia, unspecified Lipid Panel 4 Months E78.00 - Pure hypercholesterolemia, unspecified Hemoglobin A1c 4 Months E11.9 - Type 2 diabetes mellitus without complications TSH reflex Free T4 4 Months E78.00 - Pure hypercholesterolemia, unspecified Vitamin D 25-OH Total 4 Months E55.9 - Vitamin D deficiency, unspecified Vitamin B12 and Folate 4 Months E53.8 - Deficiency of other specified B group vitamins Microalbumin, Random (w Creat) 4 Months E11.9 - Type 2 diabetes mellitus without complications Complete Blood Count Auto Diff 4 Months D64.9 - Anemia, unspecified UA CC w/rflx Micro + Cult 4 Months R30.0 - Dysuria Medications: Refilled dextromethorphan-guaifenesin 10-100 mg/5 mL 10 mL PO Q6H PRN 500 mL 1RF cough
== END 2024-05-19 13:12 | disposition home or self-care (01) ==
PROVIDERS: PCP Internal Medicine; Visit Provider Internal Medicine
DX: I10 Essential (primary) hypertension (principal); G30.9 Alzheimer's disease, unspecified; E11.8 Type 2 diabetes mellitus with unspecified complications; F02.80 Dementia in other diseases classified elsewhere, unspecified severity, without behavioral disturbance, psychotic disturbance, mood disturbance, and anxiety; C64.1 Malignant neoplasm of right kidney, except renal pelvis; F33.9 Major depressive disorder, recurrent, unspecified; R05.8 Other specified cough; Z85.068 Personal history of other malignant neoplasm of small intestine; K29.70 Gastritis, unspecified, without bleeding; G47.33 Obstructive sleep apnea (adult) (pediatric); E55.9 Vitamin D deficiency, unspecified; E66.3 Overweight

== ENCOUNTER → 2024-05-19 12:22 | Outpatient (BNVA) | payer OTHER, SELFPAY | PROVIDERS: PCP Internal Medicine; Visit Provider Internal Medicine | DX: G30.9 Alzheimer's disease, unspecified (principal); F02.80 Dementia in other diseases classified elsewhere, unspecified severity, without behavioral disturbance, psychotic disturbance, mood disturbance, and anxiety; E11.8 Type 2 diabetes mellitus with unspecified complications; I10 Essential (primary) hypertension; C64.1 Malignant neoplasm of right kidney, except renal pelvis; R05.8 Other specified cough; K29.70 Gastritis, unspecified, without bleeding; G47.33 Obstructive sleep apnea (adult) (pediatric); E55.9 Vitamin D deficiency, unspecified; F33.9 Major depressive disorder, recurrent, unspecified; E66.3 Overweight; Z85.068 Personal history of other malignant neoplasm of small intestine | CPT/HCPCS: 96127; 99212 ==

== ENCOUNTER 2024-05-27 17:40 | Emergency (ER) | payer OTHER, SELFPAY ==
--- NOTE | ~2024-05-27 | XR_ITS ---
EXAMINATION: XR ABDOMEN KUB CLINICAL INDICATION: Constipation. Small bowel obstruction? COMPARISON: Most recent CT abdomen/pelvis dated 07/15/2023. TECHNIQUE: AP views of the abdomen. FINDINGS: Moderate stool burden, consistent with constipation. Prominent stool within the rectum. Nonobstructive bowel gas pattern. No abnormal soft tissue calcification. No acute osseous abnormality. XR/XR KUB IMPRESSION: Moderate stool burden, consistent with constipation. Prominent stool within the rectum. Electronically signed by: Hayden Henderson MD 05/27/2024 08:36 PM [facility]
[2024-05-27 17:51] VITALS: BP 127/66; PULSE 66; RESP 20; TEMP 35.8; O2SAT 99; BMI 26.9
[2024-05-27 18:24] LABS: MANUAL DIFF FLAG NO
[2024-05-27 18:25] LABS: Basophils Absolute Auto 0.1 X10*3/uL (0.0-0.2); Basophils Percent Auto 0.4 % (0-2); Eosinophils Percent Auto 0.1 % (0-4); Hematocrit 44.2 % (42.0-52.0); Hemoglobin 15.9 g/dl (14.0-18.0); Imm Gran Abs Auto 0.07 X10*3/uL (0.00-0.03); Imm Gran Pct Auto 0.5 % (0.0-0.4); Lymphocytes Absolute Auto 1.4 X10*3/uL (1.2-4.9); Mean Corpuscular Hemoglobin 30.6 pg (27.0-33.0); Mean Platelet Volume 9.2 fL (9.4-12.4); Monocytes Absolute Auto 0.6 X10*3/uL (0.1-1.2); Monocytes Percent Auto 4.3 % (2-11); Neutrophils Absolute Auto 11.9 x10*3/uL (2.0-8.3); Neutrophils Percent Auto 84.7 % (45-73); Platelet Count 310 X10*3/uL (160-400); Red Cell Distribution Width 12.3 % (11.0-16.0); White Blood Count 14.1 X10*3/uL (4.8-10.8)
[2024-05-27 18:41] LABS: Alanine Aminotransferase 13 U/L (0-40); Albumin Level 4.5 g/dL (3.5-5.0); Alkaline Phosphatase 80 U/L (39-117); Anion Gap 19 (12-20); Aspartate Amino Transferase 18 U/L (5-37); Bilirubin Total 0.5 mg/dL (0.0-1.0); Blood Urea Nitrogen 20 mg/dL (9-16); Calcium 10.4 mg/dL (8.4-10.2); Carbon Dioxide 23 mmol/L (22-29); Chloride 101 mmol/L (96-108); Creatinine Clr Calc Pharmacy 59.1; Estimated Glomerular Filt Rate 56; Glucose Random 297 mg/dL (60-115); Lipase 17 U/L (8-78); Potassium 4.2 mmol/L (3.3-5.1); Sodium 139 mmol/L (135-145); Total Protein 8.1 g/dL (6.5-8.0)
--- NOTE | 2024-05-27 18:49 | ED_ITS ---
HPI - General Adult General Chief complaint: Abdominal Pain Stated complaint: hasn't had a bowel mvmt in 4 dys/colon cancer hx Time Seen by Provider: 05/27/24 21:23 Source: family Limitations: other ( dementia) History of Present Illness ED Provider: Jordana benjamin PA-C HPI narrative: 69-year-old male seen in the ED for concerns regarding 9/10 centralized abdominal pain; described as pressure. Family is at bedside and is able to help answer questions as patient has dementia at baseline. Patient has not had a bowel movement in approximately 3 days; no report of blood in the stool with the last bowel movement. Patient has been able to eat, however family reports that they do not drink enough water. Tried MiraLax with no relief. Denies other changes to medications, food. Denies recent illness. Denies chest pain, palpitations, shortness of breath. Denies nausea, vomiting, fever, chills, weakness. Reports history of constipation in the past. Onset (ago): day(s) (Constipation for 3 days) Location: abdomen Radiation: non-radiation Severity: severe Severity scale (1-10): 9 Quality: other (Pressure) Pain Consistency: constant Relieving factors: none Treatments prior to arrival: other (MiraLax) Related Data Previous Rx's ?Medication ?Instructions ?Recorded lancets (OneTouch UltraSoft #100 ea 09/24/22 Lancets) lancets 33 gauge #100 ea 12/20/22 DIABETIC SHOES (1 pair) #2 ea 01/28/23 SHOE INSERTS (3 pairs) #6 ea 02/11/23 blood-glucose meter (OneTouch #1 ea 09/24/23 Ultra2 Meter) blood sugar diagnostic (OneTouch #100 ea 10/07/23 Ultra Test strips) Commode #1 ea 11/11/23 hydrochlorothiazide 12.5 mg capsule 12.5 mg PO DAILY 90 days #90 caps 01/30/24 ADULT PULL UPS (large) #100 ea 02/02/24 nut.tx.gluc.intol,lac-free,soy See Rx Instructions .Route 02/02/24 (Glucerna oral liquid) .COMPLEX weight loss 30 days #90 multiple units walker (Ultra-Light Rollator misc) #1 ea 02/17/24 melatonin 3 mg tablet 9 mg (3 x 3 mg) PO BEDTIME sleep 02/18/24 30 days #90 tabs melatonin 3 mg tablet,extended 3 - 6 mg (1 - 2 x 3 mg) PO 02/23/24 release .COMPLEX 30 days #60 tabs blood-glucose meter,continuous #1 ea 03/04/24 (FreeStyle Jermaine 3 [place]) blood-glucose sensor (FreeStyle #1 ea 03/04/24 Jermaine 3 Sensor device) omeprazole 20 mg capsule,delayed 20 mg PO DAILY #14 caps 03/10/24 release incontinent wipes / 10 packs #180 ea 03/12/24 Bed pads #5 ea 03/16/24 disposable bed pads /10 packs #60 ea 03/16/24 losartan 100 mg tablet 100 mg PO DAILY 90 days #90 tabs 03/22/24 albuterol sulfate 2.5 mg/3 mL 2.5 mg (3 mL) inhalation QID PRN 03/26/24 (0.083 %) solution for nebulization shortness of breath or wheezing 30 days #180 mL cetirizine 10 mg capsule (Zyrtec) 10 mg PO DAILY #10 caps 04/21/24 polyethylene glycol 3350 17 17 g PO DAILY 30 days #510 grams 04/22/24 gram/dose oral powder (Miralax) fluticasone furoate 100 1 inh inhalation DAILY #30 ea 04/26/24 mcg/actuation blister powder for inhalation (Arnuity Ellipta) Non slip bath mat #1 ea 04/27/24 Shower handle #1 ea 04/27/24 carbidopa 25 mg-levodopa 100 mg 0.5 - 1 tab PO BID 30 days #60 tabs 04/27/24 tablet memantine 21 mg capsule 21 mg PO DAILY 30 days #30 ea 05/10/24 sprinkle,extended release 24hr cholecalciferol (vitamin D3) 250 250 mcg PO 2XW 90 days #26 caps 05/11/24 mcg (10,000 unit) capsule famotidine 20 mg tablet 20 mg PO BID 90 days #180 tabs 05/11/24 fluticasone propionate 50 1 spray intranasal BID #16 grams 05/11/24 mcg/actuation nasal spray,suspension metformin 1,000 mg tablet 1,000 mg PO DAILY #90 tabs 05/11/24 clonazepam 0.5 mg tablet 0.25 mg (1/2 x 0.5 mg) PO BEDTIME 05/13/24 PRN insomnia 30 days #30 tabs dextromethorphan-guaifenesin 10 10 ml PO Q6H PRN cough #500 mL 05/19/24 mg-100 mg/5 mL oral liquid lorazepam 0.5 mg tablet 0.25 mg (1/2 x 0.5 mg) PO TID PRN 05/24/24 anxiety #45 tabs Allergies Allergy/AdvReac Type Severity Reaction Status Date / Time No Known Allergies Allergy Verified 05/27/24 17:55 [No Known Allergies*] Review of Systems 2 Review of Systems: Yes all other systems are reviewed and are negative Constitutional: Constitutional: Reports as per HPI and Reports no additional constitutional complaints Comments: Denies fever, chills, weakness Eyes: Eyes: Reports as per HPI and Reports no additional eye complaints C omments: Denies visual disturbances, discharge of the eyes, erythema ENT: Reports system reviewed and no additional complaints, except as documented Comments: Denies auditory changes, tinnitus. Denies nasal discharge, nasal congestion. Denies difficulty swallowing, throat discomfort Cardiovascular: Cardiovascular: Reports as per HPI and Reports no additional cardiovascular complaints Comments: Denies chest pain, palpitations Respiratory: Respiratory: Reports as per HPI and Reports no additional respiratory complaints Comments: Denies shortness of breath, cough, sputum production, wheezing Gastrointestinal: Gastrointestinal: Reports as per HPI, Reports abdominal pain and Reports constipation Comments: Reports 9/10 centralized abdominal pain. Reports constipation for 3 days. Denies nausea, vomiting, diarrhea. Denies blood in stool Genitourinary: Genitourinary: Reports no additional male genitourinary complaints Comments: Denies dysuria, hematuria, urinary urgency Musculoskeletal: Musculoskeletal: Reports no additional musculoskeletal complaints and Reports as per HPI Comments: Reports full range of motion in all extremities Integumentary/Breasts: Skin/Breast: Reports system reviewed and no additional complaints, except as docu Comments: Denies changes to skin including rashes, lesions, erythema, pruritus Neurologic: Reports system reviewed and no additional complaints, except as documented, Reports as per HPI and Reports confusion (At baseline) Comments: Patient is alert but has a history of dementia. Denies numbness and tingling in the extremities Psychiatric: Psychiatric: Reports no additional psychiatric complaints, Reports as per HPI and Reports confusion (At baseline) Comments: Dementia at baseline. Currently calm and cooperative Endocrine: Endocrine: Reports no additional endocrine complaints Hematologic/Lymphatic: Hematologic/Lymphatic: Reports no additional hematologic/lymphatic complaints and Reports as per HPI Allergic/Immunologic: Allergic/Immunologic: Reports no additional allergic/immunologic complaints and Reports as per HPI [facility] Past Medical History Medical History Cerebral amyloid angiopathy Obstructive sleep apnea Overweight (BMI 25.0-29.9) Alzheimer's dementia Depression Vitamin D deficiency Memory impairment Renal cell carcinoma of right kidney Essential hypertension Type 2 diabetes mellitus with unspecified complications H/O malignant neoplasm of small intestine Diverticula of colon Kidney mass Anemia Diabetes Hypertension Surgical History Hx of colonoscopy Hx of kidney removal History of esophagogastroduodenoscopy (EGD) H/O sinus surgery Family History Family History Father No problems noted. Mother Heart disease Pancreas cancer Maternal Grandmother Stomach cancer Social History Social History Household Members: Spouse Housing: Apartment Are you a primary day care supervisor to a significant other at home: No Do you presently have visiting nurse or other home services: No Alcohol intake: former Comment: given as premed Patient Tobacco Use Status: Former Tobacco user Tobacco use type: Cigar Smoked in Last 30 Days: No e-Cigarette/Vaping Use: Never Used Second Hand Smoke Exposure: No Use of substances other than those prescribed or required for medical reasons: No Advance Directives: Yes Advance Directives on File: Yes Advance Directives Date on File: 09/12/20 Do you have a plan to hurt others: No Plan service: No Current occupational status: retired Cognitive needs: No Hearing needs: No Vision needs: Yes (glasses) Physical Exam ED Vital Signs: Vital Signs - 24 hr 05/27/24 17:51 05/27/24 20:58 05/28/24 00:09 Temperature 96.4 F L 97.8 F 98.5 F Pulse Rate 66 88 93 Respiratory Rate 20 16 16 Blood Pressure 127/66 150/77 H 144/93 H Pulse Oximetry 99 97 96 Oxygen Delivery Method Room Air Room Air Room Air BMI result Body Mass Index 26.9 Const Other: Patient is lying in bed with family member at bedside; family helps answer questions due to patient having dementia at baseline. They are calm and cooperative; appear to be mildly uncomfortable General: cooperative, alert, awake and confusion (At baseline) Nutritional Appearance: average body habitus Orientation/consciousness: oriented to person and confusion (At baseline) HENMT Other: Head is normocephalic atraumatic; no obvious deformities are noted. No discharge, blood from nose. External nose appears to be normal. External ears appears to be normal; hearing is intact. Face is symmetric, no obvious abnormalities are noted Head: Yes normal to inspection, Yes normocephalic and Yes atraumatic Ears: hearing grossly normal bilaterally and external ears normal General nose exam: Normal external nose present and Normal nares present Face and sinus: Yes normal facial exam and Yes face symmetric Mouth: Normal oral and palatal mucosa present and lip normal Eyes Other: Pupils are PERRL. EOMs intact. No obvious abnormalities of the eyes or surrounding structures General: appearance normal, both eyes and all related structures Eyelids: Yes eyelids normal Conjunctivae: conjunctivae normal Sclerae: sclerae normal Corneas: corneas normal Pupils: Equal, round and reactive pupils present EOM: EOMs intact bilaterally Resp Other: Lungs are clear to auscultation bilaterally; no wheezing, rhonchi. No signs of respiratory distress Effort & Inspection: normal respiratory effort Auscultation: clear to auscultation bilaterally Cardio Other: Heart is regular for rate, rhythm, quality Rate: regular rate Rhythm: regular rhythm GI Other: Pain upon palpation of the right lower quadrant; right lower quadrant is found to be mildly distended. all other quadrants are soft, nontender, nondistended. Bowel sounds are difficult to auscultate at this time Inspection: Yes normal to inspection Skin Other: Skin is warm, dry, appropriate for color. No obvious rashes, lesions, erythema General skin exam: no rashes or lesions noted Neuro Other: Patient is a alert but only appears to be oriented to self; patient has dementia at baseline. They are able to follow commands and are able to reply appropriately; however, they do not speak much unless prompted. General: oriented to person and confusion (At baseline) Cranial nerves: Yes Equal, round and reactive pupils present Extrem Other: Full range of motion in all extremities. No pedal edema is noted General: Yes normal to inspection and Yes full ROM Course Course Course Narrative: RME: 69-year-old male presents to the ED for constipation 4 days. 's concern due to patient has history of colon cancer small bowel obstruction in the past. Labs x-ray ordered. Medical Decision Making Medical Decision Making [facility] Narrative: I Jordana Benjamin PA-C have personally assessed and manage the patient, Keisha Hawkins RACHAEL 69-year-old male seen in the ED for concerns regarding 9/10 centralized abdominal pain; described as pressure. Family is at bedside and is able to help answer questions as patient has dementia at baseline. Patient has not had a bowel movement in approximately 3 days; no report of blood in the stool with the last bowel movement. Patient has been able to eat, however family reports that they do not drink enough water. Tried MiraLax with no relief. Denies other changes to medications, food. Denies recent illness. Denies chest pain, palpitations, shortness of breath. Denies nausea, vomiting, fever, chills, weakness. Reports history of constipation in the past DDX: - stool impaction: Likely as patient has not had a bowel movement in approximately 3 days; we will need to assess x-ray results to make determination - constipation: likely as patient has not had a bowel movement in approximately 3 days. - bowel obstruction: Consider given that patient has not had a bowel movement in approximately 3 days and is complaining of 9/10 abdominal pain. May not be likely as patient is not experiencing nausea, vomiting. - diverticulitis: Consider due to abdominal pain. Unlikely pain is elicited upon palpation of the right lower quadrant as opposed to the left lower quadrant. Patient does not have a known history of diverticulosis - hemorrhoids: Consider as a possible underlying pathology of constipation - colitis: Consider due to current constipation and a history of constipation in the past associated abdominal pain. We need to assess on x-ray in order to make a definitive diagnosis - colorectal cancer: Considered as a possible underlying pathology to constipation and stool impaction. Would need to do an outpatient colonoscopy in order to further assess Plan: - abdominal x-ray; assess for the presence of obstruction or other possible abnormalities involving the small or large intestine - CBC; to assess for any hematologic or infectious process - CMP; to assess for any underlying metabolic or electrolyte abnormalities - stool disimpaction: To remove impacted stool that is likely the cause of constipation per Jordana Benjamin PA-C Screening labs and a KUB were obtained from triage, the patient is significantly constipated with fecal impaction, he requires disimpaction. We will send with an aggressive bowel regimen. The patient does not have symptoms concerning for a bowel obstruction, he does not require CT scan at this time. I have independently reviewed the following tests: Labs: slight Leukocytosis, not anemic, no electrolyte abnormality KUB: XR/XR KUB IMPRESSION: Moderate stool burden, consistent with constipation. Prominent stool within the rectum. Electronically signed by: Hayden Henderson MD 05/27/2024 08:36 PM [facility] Lab Data 05/27/24 18:17 05/27/24 18:17 Labs: Lab Results 05/27/24 Range/Units 18:17 WBC 14.1 H (4.8-10.8) X10*3/uL RBC 5.20 (4.60-5.80) X10*6/uL Hgb 15.9 (14.0-18.0) g/dl Hct 44.2 (42.0-52.0) % MCV 85.0 (80.0-98.0) fL MCH 30.6 (27.0-33.0) pg MCHC 36.0 (31.0-36.0) g/dl RDW 12.3 (11.0-16.0) % Plt Count 310 (160-400) X10*3/uL MPV 9.2 L (9.4-12.4) fL Immature Gran % (Auto) 0.5 H (0.0-0.4) % Neut % (Auto) 84.7 H (45-73) % Lymph % (Auto) 10.0 L (20-40) % [place] % (Auto) 4.3 (2-11) % Eos % (Auto) 0.1 (0-4) % Baso % (Auto) 0.4 (0-2) % Lymph # (Auto) 1.4 (1.2-4.9) X10*3/uL [place] # (Auto) 0.6 (0.1-1.2) X10*3/uL Eos # (Auto) 0.0 (0.0-0.4) X10*3/uL Baso # (Auto) 0.1 (0.0-0.2) X10*3/uL Abs Immat Gran (auto) 0.07 H (0.00-0.03) X10*3/uL Absolute Neuts (auto) 11.9 H (2.0-8.3) x10*3/uL Absolute Nucleated RBC 0.000 (0.0-0.012) X10*3/uL Nucleated RBC % (auto) 0.0 (0.0-0.2) /100WBC Sodium 139 (135-145) mmol/L Potassium 4.2 (3.3-5.1) mmol/L Chloride 101 (96-108) mmol/L Carbon Dioxide 23 (22-29) mmol/L Anion Gap 19 (12-20) BUN 20 H (9-16) mg/dL Creatinine 1.29 (0.5-1.4) mg/dL Estim Creat Clear Calc 59.1 Estimated GFR 56 Random Glucose 297 H (60-115) mg/dL Calcium 10.4 H (8.4-10.2) mg/dL Total Bilirubin 0.5 (0.0-1.0) mg/dL AST 18 (5-37) U/L ALT 13 (0-40) U/L Alkaline Phosphatase 80 (39-117) U/L Total Protein 8.1 H (6.5-8.0) g/dL Albumin 4.5 (3.5-5.0) g/dL Lipase 17 (8-78) U/L Discharge Plan Discharge Clinical Impression: Constipation, Fecal impaction Patient Disposition: Home, Self-Care Instructions: Constipation (ED) Additional Instructions: you were found to be significantly constipated. You need to use [id number] Colace, this is a stool softener, twice a day. You need to use the MiraLax several times a day, 5-6, until you begin having multiple large volume bowel movements. When you have cleared the stool burden, you should use the MiraLax more frequently, and take the Colace 1 to 2 times a day. Follow up with your primary care provider as needed. Prescriptions: No Action (DME) lancets [OneTouch UltraSoft Lancets[place] [facility] [place] Rx Instructions .ROUTE .MEDSUPPLY Qty: 100 5RF Rx Instructions: As directed once a day (DME) lancets 33 gauge misc See Rx Instructions .Route Qty: 100 3RF Rx Instructions: As directed (DME) DIABETIC SHOES (1 pair) See Rx Instructions .Route .MEDSUPPLY Qty: 2 1RF Rx Instructions: As directed (DME) SHOE INSERTS (3 pairs) See Rx Instructions .Route .MEDSUPPLY Qty: 6 0RF Rx Instructions: As directed (DME) blood-glucose meter [OneTouch Ultra2 Meter] [facility] [place] Rx Instructions .Route Qty: 1 0RF Rx Instructions: As directed (DME) OneTouch Ultra Test Strip See Rx Instructions .ROUTE .MEDSUPPLY Qty: 100 5RF Rx Instructions: As directed once a day (DME) Commode See Rx Instructions .Route .MEDSUPPLY Qty: 1 0RF Rx Instructions: As directed hydrochlorothiazide 12.5 mg capsule 12.5 mg PO DAILY 90 Days Qty: 90 1RF Glucerna Liquid See Rx Instructions .ROUTE .COMPLEX 30 Days Qty: 90 12RF Rx Instructions: 1 can orally TID with meals; (DME) ADULT PULL UPS (large) large See Rx Instructions .Route .MEDSUPPLY Qty: 100 12RF Rx Instructions: As directed (DME) Ultra-Light Rollator [facility] [place] Rx Instructions .Route Qty: 1 0RF Rx Instructions: As directed melatonin 3 mg tablet 9 mg PO BEDTIME 30 Days Qty: 90 1RF melatonin 3 mg tablet extended release 3 - 6 mg PO .COMPLEX 30 Days Qty: 60 6RF Rx Instructions: 3 - 6 mg orally QHS; (DME) FreeStyle Jermaine [address] [place] [facility] [place] Rx Instructions .ROUTE .MEDSUPPLY Qty: 1 1RF Rx Instructions: As directed (DME) FreeStyle Jermaine 3 Sensor Device See Rx Instructions .ROUTE .MEDSUPPLY Qty: 1 1RF Rx Instructions: As directed (DME) incontinent wipes / 10 packs See Rx Instructions .Route .MEDSUPPLY Qty: 180 2RF Rx Instructions: As directed (DME) Bed pads See Rx Instructions .Route .MEDSUPPLY Qty: 5 1RF Rx Instructions: As directed (DME) disposable bed pads /10 packs See Rx Instructions .Route .MEDSUPPLY Qty: 60 2RF Rx Instructions: As directed losartan 100 mg tablet 100 mg PO DAILY 90 Days Qty: 90 1RF polyethylene glycol 3350 [Miralax] 17 gram/dose powder 17 g PO DAILY 30 Days Qty: 510 3RF (DME) Non slip bath mat See Rx Instructions .Route .MEDSUPPLY Qty: 1 0RF Rx Instructions: As directed (DME) Shower handle See Rx Instructions .Route .MEDSUPPLY Qty: 1 0RF Rx Instructions: As directed carbidopa-levodopa 25-100 mg tablet 0.5 - 1 tab PO BID 30 Days Qty: 60 3RF Rx Instructions: take w/ a cracker 30 minutes before breakfast and dinner, memantine 21 mg capsule,sprinkle,ER 24hr 21 mg PO DAILY 30 Days Qty: 30 1RF fluticasone propionate 50 mcg/actuation spray,suspension 1 spray intranasal BID Qty: 16 2RF Rx Instructions: administer into each nostril cholecalciferol (vitamin D3) 250 mcg (10,000 unit) capsule 250 mcg PO 2XW 90 Days Qty: 26 2RF metformin 1,000 mg tablet 1,000 mg PO DAILY Qty: 90 1RF famotidine 20 mg tablet 20 mg PO BID 90 Days Qty: 180 1RF clonazepam 0.5 mg tablet 0.25 mg PO BEDTIME PRN (Reason: insomnia) 30 Days Qty: 30 1RF Rx Instructions: administer 30 minutes before bedtime, may repeat x's 1 (max daily dose 1 tab) lorazepam 0.5 mg tablet 0.25 mg PO TID PRN (Reason: anxiety) Qty: 45 1RF omeprazole 20 mg capsule,delayed release(DR/EC) 20 mg PO DAILY Qty: 14 0RF Zyrtec 10 mg capsule 10 mg PO DAILY Qty: 10 0RF albuterol sulfate 2.5 mg /3 mL (0.083 %) solution for nebulization 2.5 mg inhalation QID PRN (Reason: shortness of breath or wheezing) 30 Days Qty: 180 3RF dextromethorphan-guaifenesin 10-100 mg/5 mL liquid 10 ml PO Q6H PRN (Reason: cough) Qty: 500 1RF Arnuity Ellipta 100 mcg/actuation blister with device 1 inh inhalation DAILY Qty: 30 6RF Interventions: ED Discharge Assessment Last Done: 05/28/24 00:09 Discharge Date/Time: 05/28/24 00:10 Print Language: Bolivian
[2024-05-27 20:58] VITALS: BP 150/77; PULSE 88; RESP 16; TEMP 36.6; O2SAT 97
--- NOTE | 2024-05-27 21:27 | PC.NURSE ---
Pt brought to 22 from waiting room, assumed care of pt at this time. A&Ox1 hx dementia per . Skin pwd respirations even unlabored, VSS. reports pt constipated x 4 days, straining for BM. Pt denies abd pain at this time. Denies accompanying symptoms. Abd soft NT. KUB and labs resulted from waiting room, awaiting primary provider eval, pt and aware of plan of care.
--- NOTE | 2024-05-27 22:06 | PC.NURSE ---
Provider to bedside for primary eval.
[2024-05-28 00:09] VITALS: BP 144/93; PULSE 93; RESP 16; TEMP 36.9; O2SAT 96
== END 2024-05-28 00:10 | disposition home or self-care (01) ==
PROVIDERS: Physician Assistant; Emergency Provider Internal Medicine; PCP Internal Medicine
DX: K59.00 Constipation, unspecified (principal); R10.31 Right lower quadrant pain; F03.90 Unspecified dementia, unspecified severity, without behavioral disturbance, psychotic disturbance, mood disturbance, and anxiety; E11.9 Type 2 diabetes mellitus without complications; Z87.891 Personal history of nicotine dependence; Z79.899 Other long term (current) drug therapy; Z79.84 Long term (current) use of oral hypoglycemic drugs
CPT/HCPCS: 36415; 74018; 80053; 83690; 85025; 99283; 99284

== ENCOUNTER 2024-06-24 09:28 | Outpatient (REF) | payer OTHER, SELFPAY ==
[2024-06-24 12:16] LABS: Magnesium 1.8 mg/dL (1.6-2.6)
[2024-07-01 16:37] LABS: Vitamin B1 <6 nmol/L (8-30)
[2024-07-04 14:04] LABS: Vitamin B6 6.3 ng/mL (2.1-21.7)
== END 2024-06-24 09:29 | disposition home or self-care (01) ==
LOC: HO.LAB 09:28
PROVIDERS: PCP Internal Medicine; Visit Provider Nurse Practitioner Family
DX: R20.0 Anesthesia of skin (principal); R20.2 Paresthesia of skin
CPT/HCPCS: 36415; 83735; 84207; 84425

== ENCOUNTER 2024-07-05 14:52 | Outpatient (REF) | payer OTHER, SELFPAY ==
--- NOTE | ~2024-07-05 | XR_ITS ---
CLINICAL HISTORY: R05.9 - Cough, unspecified Two views of the chest. COMPARISON: XR chest dated 04/21/24 at 10:36 EDT FINDINGS: Normal heart size. Atherosclerotic thoracic aorta. No consolidation. No pleural effusion or pneumothorax. Mild midthoracic spondylosis. No fracture identified. IMPRESSION: 1. No consolidation. This document has been electronically signed by: Alan Stanford MD on 07/06/2024 15:43:04
== END 2024-07-05 14:53 | disposition home or self-care (01) ==
LOC: HO.XRAY 14:52
PROVIDERS: PCP Internal Medicine; Visit Provider Nurse Practitioner Family
DX: R05.9 Cough, unspecified (principal); F03.90 Unspecified dementia, unspecified severity, without behavioral disturbance, psychotic disturbance, mood disturbance, and anxiety; R13.10 Dysphagia, unspecified
CPT/HCPCS: 71046; 99212

== ENCOUNTER 2024-07-05 14:52 | Outpatient (AMB) | payer OTHER, SELFPAY ==
--- NOTE | 2024-07-05 12:25 | MHC.OFFVIS ---
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 He is accompanied by who provides HPI given h/o dementia. He was initially referred for chronic dry cough that was minimally responsive to a zpak, prednisone, Zyrtec, famotidine and nasal spray. He did have overall improvements per but she notes cough has persisted over the last week with associated rattling of chest. She does report difficulty expectorating and shallow breathing, unable to fully follow commands to move mucous. She denies any notable labored breathing or wheezing. She denies fevers or sick contacts. At the last visit, he was started on Arnuity however notes difficulty using due to mentation, often resulting in biting the device. She continues to use albuterol nebulizer q6 hours PRN with moderate effect. [facility] Medical History Cerebral amyloid angiopathy Obstructive sleep apnea Overweight (BMI 25.0-29.9) Alzheimer's dementia Depression Vitamin D deficiency Memory impairment Renal cell carcinoma of right kidney Essential hypertension Type 2 diabetes mellitus with unspecified complications H/O malignant neoplasm of small intestine Diverticula of colon Kidney mass Anemia Diabetes Hypertension Surgical History Hx of colonoscopy Hx of kidney removal History of esophagogastroduodenoscopy (EGD) H/O sinus surgery Family History Father No problems noted. Mother Heart disease Pancreas cancer Maternal Grandmother Stomach cancer Social History Household Members: Spouse Housing: Apartment Are you a primary critical care cns to a significant other at home: No Do you presently have visiting nurse or other home services: No Alcohol intake: former Comment: given as premed Patient Tobacco Use Status: Former Tobacco user Tobacco use type: Cigar e-Cigarette/Vaping Use: Never Used Second Hand Smoke Exposure: No Advance Directives Date on File: 09/12/20 service: No Current occupational status: retired Cognitive needs: No Hearing needs: No Vision needs: Yes (glasses) Review of Systems Const All systems reviewed & are unremarkable except as noted in HPI and below Denies excessive sweating, Denies fever(s) and Denies night sweats ENT Reports Normal hearing present Card Denies leg edema, Denies dyspnea on exertion, Denies orthopnea and Denies paroxysmal nocturnal dyspnea Resp Denies excessive phlegm production, Denies pain on inspiration, Denies pain with cough, Denies dyspnea on exertion and Denies stridor Neuro Reports Normal hearing present Endo Denies excessive sweating Aller/Immun Denies seasonal rhinorrhea Physical Exam Vital Signs: Last Vital Signs Pulse 90 07/05/24 14:54 BP 128/76 07/05/24 14:54 Pulse Ox 98 07/05/24 14:54 Oxygen Delivery Method Room Air 07/05/24 14:54 BMI result Body Mass Index 26.4 Const General: comfortable, no acute distress, well developed and alert Orientation/consciousness: patient oriented x3 Limitations: no limitations HEENT Head: Yes normal to inspection, Yes normocephalic and Yes atraumatic Ears: hearing grossly normal bilaterally and external ears normal Eyes General: appearance normal, both eyes and all related structures Eyelids: Yes eyelids normal Sclerae: sclerae normal EOM: EOMs intact bilaterally Neck Neck: Yes normal visual inspection and Yes no lymphadenopathy Lymphatic: no lymphadenopathy noted Chest Chest palpation & inspection: normal inspection of the chest Resp Effort & Inspection: normal respiratory effort, able to speak in complete sentences, no audible wheezes, no stridor, not tachypneic, no tripod positioning and no use of accessory muscles Auscultation: diminished lung sounds Cardio Jugular venous distension: no JVD Rate: regular rate Rhythm: regular rhythm Skin Other: warm, dry General skin exam: no rashes or lesions noted Neuro General: patient oriented x3 Cranial nerves: Yes Normal hearing present Cognition (Neuro): normal cognition Gait exam (Neuro): Normal gait present Extrem General: Yes normal to inspection, Yes capillary refill normal, Yes no clubbing, cyanosis or edema and Yes no pedal edema Psych Appearance: grossly normal and well kempt Speech and movement: Normal speech and movement present and Clear speech present Affect: Blunted affect present Insight: Limited insight present (Psych) Judgement: Limited judgement present (Psych) Assessment & Plan Assessment & Plan (1) Cough: Code(s): R05.9 - Cough, unspecified Category: Medical (2) Dementia: Code(s): F03.90 - Unspecified dementia, unspecified severity, without behavioral disturbance, psychotic disturbance, mood disturbance, and anxiety Category: Medical (3) Dysphagia: Code(s): R13.10 - Dysphagia, unspecified Category: Medical Plan Reviwed RAST which was negative and IgE/eosinphil count WNL. Prior CXR unremarkable. Given patient's dementia will likely be unable to perform PFT. During visit, patient unable to follow commands efficiently as prior visits, need to consider microaspiration, will send for barium swallow. Will also send for CXR given difficulty with respiratory exam. Will also switch albuterol to DuoNeb and reassess at next visit. is aware to call office if symptoms worsen. All questions were answered and patient is in agreement of plan. Will follow-up in 4-6 weeks or sooner if needed. Orders: Orders XR chest 2V Today R05.9 - Cough, unspecified FL Modified Barium Swallow Today R13.10 - Dysphagia, unspecified Medications: New ipratropium-albuterol 0.5 mg-3 mg(2.5 mg base)/3 mL 3 mL inhalation Q6H PRN 180 mL 0RF wheezing Coding Level of Care Code Est Pt Level 4 (01809) Diagnoses Cough R05.9 Dementia F03.90 Dysphagia R13.10
--- OUTSIDE RECORDS SUMMARY | 2024-07-05 14:53 | XMS_ITS ---
Author Organization [facility] Address [address] [place] [address] Care Team Providers Care Bonding Supervisor Name Role Phone Chung GONZALES, [place] Primary Care Provider Rodolfo Tran Unavailable [phone] Allergies No Known Allergies REASON FOR VISIT At Risk Footcare, Painful Nail(s) aggravated by shoes and causing difficulty standing/walking., ToeIrritation Medications Medication SIG (Take, Route, Frequency, Duration) Notes Start Date End Date Status Carbidopa-Levodopa 25-100 MG PLEASE SEE ATTACHED FOR DETAILED DIRECTIONS Oral for 90 Days Active clonazePAM Not-Takin g MiraLax 17 GM/SCOOP 1 scoop mixed with 8 ounces of fluid Orally Once a day Not-Taking Sertraline HCl 25 MG 1 tablet Orally Onc e a day Not-Taking Famotidine 20 MG 1 tablet at bedtime as needed Orally Once a day Not-Taking metFORMIN HCl 1000 MG 1 tablet with a me al Orally Once a day Active Losartan Potassium 100 MG 1 tablet Orall y Once a day Active hydroCHLOROthiazide 12.5 MG 1 capsule in the morning Orally Once a day Active Vitamin D3 250 MCG (05655 UT) as directed Orally Active Extra Depth Orthopedic Shoes, (1) Pair With (3) Pair Custom Heat Molded Multidensity Innersoles Dx: NIDDM/PVD(E11.51), Hammertoe Foot Deformity(M20.41,M20. 42), Preulcerative Skin Lesion(s)(L85.1) Wear Daily for 365 days 01/07/2024 Active Donepezil HCl Active Memantine HCl Active Social History Tobacco Use: Social History Observation Description Date Details (start date - stop date) Former Smoker NA - NA Tobacco Use/Smoking Question Answer Notes Are you a: former smoker Additional Findings: Tobacco Non-User Current no n-smoker Alcohol Screen Question Answer Notes Did you have a drink containing alcohol in the p ast year? No Points 0 Interpretation Negative Tobacco use other than smoking: Question Answer Notes Are you an other tobacco user? No Vital Signs Height 5ft 8in in 06/24/2024 Weight 196 lbs 06/24/2024 BMI 29.8 kg/m2 06/24/2024 Blood pressure systolic 132 mm Hg 06/24/20 24 Blood pressure diastolic 86 mm Hg 024 Procedures Procedure Date Ordered Date Performed Result Body Sit e 81002-HJEQTTH NAIL, 1-5 06/24/2024 N/A 91748-NAGR SKIN LESIONS, 2 TO 4 06/24/2024 N/A T3247-LEBNPTWI DYSTROPHIC NAILS ANY # 06/24/2024 N/A Encounters Encounter Location Date Provider Diagnosis [facility] [address] [address] 06/24/2024 Rodolfo Kaplan Type 2 diabetes mellitus with diabetic peripheral angiopathy without gangrene E11.51 ; Tinea unguium B35.1 ; Pain in right toe(s) M79.674 ; Pain in left toe(s) M79.675 ; Other hammer toe(s) (acquired), right foot M20.41 and Other hammer toe(s) (acquired), left foot M20.42 Assessments Encounter Date Diagnosis (ICD Code) Assessment Notes Treatment Notes Treatment Clinical Notes Section Notes 06/24/2024 Type 2 diabetes mellitus with diabetic peripheral angiopathy without gangrene (ICD-10 - E11.51) 06/24/2024 Tinea unguium (ICD-10 - B35.1) 06/24/2024 Pain in right toe(s) (ICD-10 - M79.674) 06/24/2024 Pain in left toe(s) (ICD-10 - M79.675) 06/24/2024 Other hammer toe(s) (acquired), right foot (ICD-10 - M20.41) Response to treatment,Impro vement 06/24/2024 Other hammer toe(s) (acquired), left foot (ICD-10 - M20.42) Response to treatment,Impro vement Plan Of Treatment Pending Test Test Name Order Date 45433-UMVDONL NAIL, 1-5 06/24/2024 59585-HZWV SKIN LESIONS, 2 TO 4 06/24/20 U9299-RBGOAALR DYSTROPHIC NAILS ANY # Next Appt Details Follow Up: 2 Months, Reason: Provider Name:Rodolfo Kaplan , 09/29/2024 02:45:00 PM, [address], [address], [place], [address], Procedure Notes * Category Sub-Category Detail Notes Keratoma Treatment Parring or Cutting o f Benign Hyperkeratotic Lesion(s) (-56) 2-4 Lesions - Due to the at risk nature of the patients medical condition as documented in the exam findings, performance of this keratoderma treatment is medically necessary as its management by an unskilled/untrained nonprofessional would put this patients foot and overall health at risk. Therefore, the benign hyperkeratotic lesions, ( 2) in total, locations as stated and described in the exam ( Plantar, Heel(s) , B/L), were pared, and/or cut utilizing a sterile 15 blade, tissue nippers, and/or power dremel instrumentation by the physician of record - 86874, Q8 Debride Nails 1-5 Procedure: Due to the cli nical pathology outlined in the exam findings, performance of this nail treatment is medically necessary as its management by an unskilled/untrained nonprofessional would put this patients foot and overall health at risk. Therefore, debridement to affected nail(s), as described in exam ( TA , T5), was performed exclusively by the physician of record to reduce/remove overall nail length, girth, thickness, subungual debris, and necrotic tissue, by manual and/or electrical means through the use of a nail nipper and/or dremel stylegrinder, to a more viable healthy nail plate or bed tissue 5 nails or fewer in number. Silver nitrate was used for any petechial bleeding as necessary. Definitive antifungal treatment options, both pharmaceutical and surgical, have been reviewed and discussed with the patient. The patient solely prefers the use of intermittent/as needed professional debridement services for their nail condition and understands that additional periodic treatments may be required as necessary to maintain effective symptomatic relief - 60807 Nail Reduction Nail Reduction (-27) Trimming o f all dystrophic nails - Due to the at risk nature of the patients medical condition as documented in the exam findings, performance of this nail treatment is medically necessary as its management by an unskilled/untrained nonprofessional would put this patients foot and overall health at risk. Therefore, the dystrophic nails, in locations as stated and described in the exam ( T1, T2, T3, T4, T6, T7, T8, T9 ), were debrided by the phisician of record to reduce/remove overall nail length and girth, by manual and electrical means with use of a nail nipper and/or dremel, to more viable healthy nail plate or bed tissue - G0127 Progress Notes * Elijah BEARDENDOB:1955 ( 69 yo M)Acc No.[id number]:06/24/2024 Progress Note Patient:?Elijah BEARDEN Provider:?Rodolfo Kaplan DPM :1955???Age:69 Y???Sex:Male Francis e:06/24/2024 Address:[address] [place], [place] [id number] Pcp:Yuri Wilkes MD Subjective: * Chief Complaints: * ???At Risk FootcarePainful N ail(s) aggravated by shoes and causing difficulty standing/walking.Toe Irritation * HPI: ???At Risk footcare:?Pt States Last PCP Visit:?Date?05/19/2024 ???Toe pain:?Treatments:?Rx shoes.? * ROS:?General/Constitutional:?Nausea?denies.?Vomiting?denies.?Hunger Thirst?denies.?Loss appetite?denies.?Chills?denies.?Fatigue?denies.?Fever?denies.?Night Sweats?denies.?Unexplained weight loss?denies.?Unexplained weight gain?denies.?HEENTM:?Dentures?denies.?Dizziness?denies.?Glasses/contacts?admits.?Retinopathy?de nies.?Blurred/double vision?denies.?TMJ?denies.?Discharge/drainage?denies.?Implants?denies.?Sore throat?denies.?Dental implants?denies.?Hard of hearing ?denies.?Difficulty chewing/swallowing/speaking?denies.?Nose bleeds?denies.?Sore mouth?denies.?Respiratory:?On Oxygen?denies.?Pneumonia/pleurisy?denies.?Bronchitis?denies.?Emphysema?denies.?C oughing?denies.?Cough blood?denies.?Shortness of breath?denies.?Wheezing?denies.?Cardiovascular:?Pacemaker?denies.?MVP?denies.?WPW?denies.?CHF?denies.?Heart attack?denies.?Septal defect?denies.?Rapid beat?denies.?Chest pain ?denies.?Atrial Fib.?denies.?Murmur/Palpitations?denies.?Gastrointestinal:?Hemorrhoids?denies.?Stomach/Abdominal pain?denies.?Dark blood stool?denies.?Irritable bowel ?denies.?Constipation?denies.?Diarrhea?denies.?Hematology:?Swelling?denies.?Clots?denies.?Varicose Veins?denies.?Bruising?denies.?Bleeding problem?denies.?Genitourinary:?Blood urine?denies.?Frequent/Painfu/urination/bladder control?denies.?Kidney stones?denies.?Infection (UTI)?denies.?Nephropathy?denies.?sex trans dis (STD)?denies.?Prostate?denies.?Musculoskeletal:?Hammertoes?admits.?Bunions?denies.?Back Pain?denies.?Muscle Cramps/ Resting?denies.?Muscle cramps / walking?denies.?Generalized aches and pains?denies.?Weakness?denies.?Integ.:?Cole?denies.?Scars?denies.?Corns/calluses?admits.?Ingrown nails?admits.?Painful nails?admits.?Open Sores?denies.?Rashes?denies.?Neurologic:?Difficulty sleeping?denies.?Brain disorder?denies.?Numbness?denies.?Balance trouble?denies.?Confusion?denies.?Fainting/blackouts?denies.?Tingling?denies.?Tr emors?denies.? * Medical History:? * Surgical History:?colonoscop y kidney removal, half inus surgery esophagogastroduodenoscopy colon cancer 02/23/20 * Hospitalization/Major Diagno stic Procedure:?ER- coughing 2023 * Family History:?Mother: dece ased, pancreatic cancer, diagnosed with Other malignant neoplasm of unspecified site, Diabetic - NIDDM, Unspecified essential hypertension, Unspecified heart disease.?Father: , diagnosed with Diabetic - NIDDM.?Maternal Grand Mother: stomach cancer, diagnosed with Other malignant neoplasm of unspecified site.? * Social History:?Tobacco Use:?Tobacco Use/Smoking?Are you a:?former smoker ?Additional Findings: Tobacco Non-User?Current non-smoker ?Tobacco use other than smoking?Are you an other tobacco user??No ???Drugs/Alcohol:?Drugs?Have you used drugs other than those for medical reasons in the past 12 months??No ?Alcohol Screen?Did you have a drink containing alcohol in the past year??No ?Points?0 ?Interpretation?Negative ???Miscellaneous:?Caffeine: no. ?Exercise: yes, walking. ?Marital status: . ?Occupation: Retired. * Medications:?TakingDonepezil HCl Memantine HCl metFORMIN HCl 1000 MG Tablet 1 tablet with a meal Orally Once a day Losartan Potassium 100 MG Tablet 1 tablet Orally Once a day hydroCHLOROthiazide 12.5 MG Capsule 1 capsule in the morning Orally Once a day Vitamin D3 250 MCG (60291 UT) Tablet as directed Orally Extra Depth Orthopedic Shoes, (1) Pair With (3) Pair Custom Heat Molded Multidensity Innersoles . Dx: NIDDM/PVD(E11.51), Hammertoe Foot Deformity(M20.41,M20.42), Preulcerative Skin Lesion(s)(L85.1) Wear Daily Carbidopa-Levodopa 25-100 MG Tablet PLEASE SEE ATTACHED FOR DETAILED DIRECTIONS Oral Taking Donepezil HCl Taking Memantine HCl Taking metFORMIN HCl 1000 MG Tablet 1 tablet with a meal Orally Once a day Taking Losartan Potassium 100 MG Tablet 1 tablet Orally Once a day Taking hydroCHLOROthiazide 12.5 MG Capsule 1 capsule in the morning Orally Once a day Taking Vitamin D3 250 MCG (07178 UT) Tablet as directed Orally Taking Extra Depth Orthopedic Shoes, (1) Pair With (3) Pair Custom Heat Molded Multidensity Innersoles . Dx: NIDDM/PVD(E11.51), Hammertoe Foot Deformity(M20.41,M20.42), Preulcerative Skin Lesion(s)(L85.1) Wear Daily Taking Carbidopa-Levodopa 25-100 MG Tablet PLEASE SEE ATTACHED FOR DETAILED DIRECTIONS Oral Not-Taking/PRNclonazePAM Sertraline HCl 25 MG Tablet 1 tablet Orally Once a day Famotidine 20 MG Tablet 1 tablet at bedtime as needed Orally Once a day MiraLax 17 GM/SCOOP Powder 1 scoop mixed with 8 ounces of fluid Orally Once a day Medication List reviewed and reconciled with the patientNot-Taking/PRN clonazePAM Not- Taking/PRN Sertraline HCl 25 MG Tablet 1 tablet Orally Once a day Not-Taking/PRN Famotidine 20 MG Tablet 1 tablet at bedtime as needed Orally Once a day Not-Taking/PRN MiraLax 17 GM/SCOOP Powder 1 scoop mixed with 8 ounces of fluid Orally Once a day Medication List reviewed and reconciled with the patient * Allergies:?N.K.D.A.yes[Aller gies Verified] Objective: * Vitals:?Ht: 5ft 8in, Wt:196, BMI:29.8, Shoe size: 11, BP:132/86mm Hg, BS: 132, Ht-cm: 172.72 cm, Wt-k.9 kg. * ???Past Orders: ???Lab:HEMOGLOBIN A1C (GLYCO HEMOGLOBIN) (Order Date - 06/24/2024) (Collection Date & Time - 06/24/2024 01:48 PM) ? Value Reference Range ?TOTAL HEMOGLOBIN (HGBA1C) 7.1 * Examination: ???Vascular: ?DP PULSES (B):?1/4, B/L.?PT PULSES (B):? 0/4, B/L.?CAPILLARY FILL TIME:? delayed, all digits, B/L.?TROPHIC CONDITION-TEXTURE/ELASTICITY/TURGOR/HAIR GROWTH (B):? decreased,?with sparse to absent hair growth, B/L.?TEMPERTURE GRADIENT (C):? decreased, cool to cool, proximal to distal, B/L.?PIGMENTATION:?mottled, B/L.?EDEMA (C):?absent, B/L.?CLAUDICATION (C):?denies, B/L.?REST PAIN:?denies, B/L.?Nails: ?NAILS are:?Elongated, overgrown, dystrophic, lytic, greater than 3mm thick, discolored and friable with crumbly malodorous subungual debris, with pain on palpation , TA , T5, all other nails not described with characteristics as possessing mycosis are elongated, overgrown, and dystrophic ( T1, T2, T3, T4, T6, T7, T8, T9?).?Dermatologic: ?SKIN FINDINGS:?Skin exam reveals Keratotic lesion(s) located at , Plantar, Heel(s) , B/L.?Orthopedic: ?DIGITAL DEFORMITIES:?Digital contracture, PIPJ, 2-5 B/L, incompl-reducible to push-up test, no over, nor underlapping, no longer, with evidence of shoe producing skin irritation.?FOOTWEAR:?good condition, exhibit proper fit and accommodation for pedal deformities. OT were inspected and noted to be worn, but in good condition giving proper support at the present time.? Assessment: * Assessment: 1.?Tinea unguium - B35.1???2 .?Type 2 diabetes mellitus with diabetic peripheral angiopathy without gangrene - E11.51 (Primary)???3.?Pain in right toe(s) - M79.674???4.?Pain in left toe(s) - M79.675???5.?Other hammer toe(s) (acquired), right foot - M20.41???Specify :Chronic problem, Stable (1=3,2=4)???Notes :Response to treatment,Improvement???6.?Other hammer toe(s) (acquired), left foot - M20.42???Specify :Chronic problem, Stable (1=3,2=4)???Notes :Response to treatment,Improvement??? Plan: * Treatment: 2.?Tinea unguium?Procedure: 98441-EEYLUIH NAIL, 1-5 * Procedures:?Debride Nails 1-5:?Procedure:?Due to the clinical pathology outlined in the exam findings, performance of this nail treatment is medically necessary as its management by an unskilled/untrained nonprofessional would put this patients foot and overall health at risk. Therefore, debridement to affected nail(s), as described in exam (?TA?,?T5), was performed exclusively by the physician of record to reduce/remove overall nail length, girth, thickness, subungual debris, and necrotic tissue, by manual and/or electrical means through the use of a nail nipper and/or dremel stylegrinder, to a more viable healthy nail plate or bed tissue 5 nails or fewer in number. Silver nitrate was used for any petechial bleeding as necessary. Definitive antifungal treatment options, both pharmaceutical and surgical, have been reviewed and discussed with the patient. The patient solely prefers the use of intermittent/as needed professional debridement services for their nail condition and understands that additional periodic treatments may be required as necessary to maintain effective symptomatic relief - 39571.?Keratoma Treatment:?Parring or Cutting of Benign Hyperkeratotic Lesion(s)?(-56) 2-4 Lesions - Due to the at risk nature of the patients medical condition as documented in the exam findings, performance of this keratoderma treatment is medically necessary as its management by an unskilled/untrained nonprofessional would put this patients foot and overall health at risk. Therefore, the benign hyperkeratotic lesions, ( 2) in total, locations as stated and described in the exam (?Plantar,?Heel(s)?,?B/L), were pared, and/or cut utilizing a sterile 15 blade, tissue nippers, and/or power dremel instrumentation by the physician of record - 52853, Q8.?Nail Reduction:?Nail Reduction?(-27) Trimming of all dystrophic nails - Due to the at risk nature of the patients medical condition as documented in the exam findings, performance of this nail treatment is medically necessary as its management by an unskilled/untrained nonprofessional would put this patients foot and overall health at risk. Therefore, the dystrophic nails, in locations as stated and described in the exam (?T1, T2, T3, T4, T6, T7, T8, T9?), were debrided by the phisician of record to reduce/remove overall nail length and girth, by manual and electrical means with use of a nail nipper and/or dremel, to more viable healthy nail plate or bed tissue - G0127.? * Procedure Codes:?G0127 MATTHEW ING DYSTROPHIC NAILS ANY #, Modifiers: XS , [id number] DEBRIDE NAIL, 1-5, Modifiers: XS 45067 TRIM SKIN LESIONS, 2 TO 4, Modifiers: XS , Q8 * Preventive Medicine:? ??Counseling:?Discussion:?-13: Office or other outpatient visit for the evaluation and management of an established patient, which required a medically appropriate history and/or examination and LOW level of DECISION MAKING for: 1 STABLE ACUTE UNCOMPLICATED PROBLEM, 2 OR MORE MINOR PROBLEMS, OR 1 STABLE CHRONIC PROBLEM, THAT POSE(S) A LOW RISK FOR MORBIDITY/MORTALITY. The visit on the day of the encounter encompassed interpreting the data and educating the patient as to the nature of their condition, treatment options available according to their individual PMH, meds, allergies, and overall health/living conditions, as well as any potential risks or complications that may occur from a failure to adhere to, and participate in, the recommended course of therapy. The discussion included a complete verbal, and/or written explanation of the examination results, any x-rays taken, the proposed diagnosis, and outline of the treatment plan. A schedule for future care needs was also explained. The patient verbalized an understanding of the instructions at this time and agreed to be an active participant in their treatment. If the patient should think of any questions or concerns after the visit, I have encouraged the patient to call the office.?Shoe Gear Counseling:?A thorough inspection of the patients Rxed shoegear and inserts was performed and findings communicated. We reviewed the many important medical advantages for adhering to regularly wearing these shoe and insert accomidative devices daily as well as reviewed the fact that a failure in accepting these recommedations may be deleterious, unable to prevent, and disadvantagely result in, many pedal complications such as skin irritation, skin ulceration, infection, and even loss of toe/foot/leg/or even their life. Time was also spent reviewing the proper footcare techniques including daily skin moisturization, daily foot inspection for any interruption in skin integrity, open lesions, or sign of infection such as redness/malodor/drainage/swelling as well as daily shoe inspection for the presence of internal foreign bodies and shoe as well as insert wear. Patient questions re: shoes, inserts, and self foot inspections were answered to their satisfaction as the patient verbally confirmed a full understanding of the above information.? * Follow Up:?2 Months * Images: * Sign off status: Completed true * Provider:?Rodolfo Kaplan DPM Date:?2023 Generated for Shanon bedoya/Stephanie/Leonor on:?07/05/2024 02:53 PM EST History and Physical Notes * HPI (History of Present Illness) Category Sub-Category Detail Notes Category Not es Toe pain Treatments: Rx shoes At Risk footcare Pt States Last PCP Visit: Date: 4 Examination Category Sub-Category Detail Notes Category Not es Dermatologic SKIN FINDINGS: Skin exam reveal s Keratotic lesion(s) located at , Plantar, Heel(s) , B/L Orthopedic FOOTWEAR: good condition, exhibit proper fit and accommodation for pedal deformities. OT were inspected and noted to be worn, but in good condition giving proper support at the present time DIGITAL DEFORMITIES: Digital contracture , PIPJ, 2-5 B/L, incompl-reducible to push-up test, no over, nor underlapping, no longer, with evidence of shoe producing skin irritation Vascular DP PULSES (B): 1/4, B/L PT PULSES (B): 0/4, B/L CAPILLARY FILL TIME: delayed, all digits , B/L TEMPERTURE GRADIENT (C): decreased, cool to cool, proximal to distal, B/L TROPHIC CONDITION-TEXTURE/ELASTICITY/TURGOR/HAIR GROWTH (B): decreased, with sparse to absent hair gr owth, B/L EDEMA (C): absent, B/L CLAUDICATION (C): denies, B/L REST PAIN: denies, B/L PIGMENTATION: mottled, B/L Nails NAILS are: Elongated, overg rown, dystrophic, lytic, greater than 3mm thick, discolored and friable with crumbly malodorous subungual debris, with pain on palpation , TA , T5, all other nails not described with characteristics as possessing mycosis are elongated, overgrown, and dystrophic ( T1, T2, T3, T4, T6, T7, T8, T9 )
[2024-07-05 14:54] VITALS: BP 128/76; PULSE 90; O2SAT 98; BMI 26.4
--- OUTSIDE RECORDS SUMMARY | 2024-07-05 14:54 | XMS_ITS | Continuity of Care Document ---
Author Organization [employer] [facility] [place] - [facility] Address [address] [place] [id number] Care Team Providers Care Photographic Supervisor Name Role Phone HIM CCA OTHER ANMOL MARQUEZ Primary Care Provider Assessment No assessment recorded. Plan of Treatment Reminders Order Date Submit Date Provider Last Modified By Organization Details Last Modified Time Details Appointments None recorded. Lab rapid SARS CoV 2 Ag, QL IA, respiratory specimen 2023 [facility], [address] [place] [address], [id number], 4 19:02:16 rapid flu (A+B) 2023 024 [facility], [address] [place] [address], [phone], 19:02:38 Referral None recorded. Procedures None recorded. Surgeries None recorded. Imaging None recorded. Medication Orders None recorded. Patient TargetsNo targets recorded. Patient InstructionsNo instructions recorded. Reason for Referral None Reported. Results Created Date Observation Date Name Description Value Unit Range Abnormal Flag Note LastModifiedBy Organization Detail LastModifiedTime Result Notes None recorded. Medical Equipment None Reported. Allergies No known drug allergies Medications Name Sig Start Date Stop Date Status Note LastModified by Organization Details LastModified Time donepezil 5 mg tablet TAKE 1 TABLET BY MOUTH BEDTIME FOR 30 DAYS active Not Available Not Available No t Available trazodone 50 mg tablet TAKE 1 TABLET BY MOUTH EVERY DAY AT BEDTIME FOR SLEEP active Not Available Not Available No t Available donepezil 10 mg tablet TAKE 1 TABLET BY MOUTH AT BEDTIME FOR 90 DAYS active Not Available Not Available No t Available clonazepam 0.5 mg tablet TAKE 1/2 TAB AT BEDTIME NEEDED FOR INSOMNIA ADMINISTER 30 MINUTES BEFORE BEDTIME active Not Available Not Available No t Available melatonin 3 mg tablet TAKE 3 TABLETS BY MOUTH AT BEDTIME FOR SLEEP FOR 30 DAYS active Not Available Not Available No t Available famotidine 20 mg tablet TAKE 1 TABLET BY MOUTH 2 TIMES A DAY FOR 90 DAYS active Not Available Not Available Not Available OneTouch Ultra Test strips USE DIRECTED ONCE A DAY active Not Available Not Available N ot Available metformin 1,000 mg tablet TAKE 1 TABLET (1000 MG) ORALLY DAILY active Not Available Not Available No t Available hydrochlorot hiazide 12.5 mg capsule TAKE 1 CAPSULE BY MOUTH EVERY DAY active Not Available Not Available No t Available gabapentin 300 mg capsule TAKE 1 CAPSULE BY MOUTH EVERY NIGHT AT BEDTIME active Not Available Not Available No t Available sertraline 25 mg tablet TAKE 1 TABLET BY MOUTH EVERY DAY active Not Available Not Available No t Available losartan 100 mg tablet TAKE 1 TABLET BY MOUTH EVERY DAY FOR 90 DAYS active Not Available Not Available No t Available fluticasone propionate 50 mcg/actuatio n nasal spray,suspen jimmy SPRAY 1 SPRAY BY INTRANASAL ROUTE EVERY DAY active Not Available Not Available No t Available melatonin ER 3 mg tablet,exten ded release TAKE 1 TO 2 TABLETS BY MOUTH AT BEDTIME active Not Available Not Available No t Available OneTouch UltraSoft Lancets USE DIRECTED ONCE A DAY active Not Available Not Available N ot Available cholecalcife rol (vitamin D3) 250 mcg (10,000 unit) capsule TAKE 1 CAPSULE BY MOUTH TWICE A WEEK FOR 90 DAYS active Not Available Not Available No t Available memantine 14 mg capsule sprinkle,ext ended release 24hr TAKE 1 CAPSULE BY MOUTH DAILY active Not Available Not Available Not Available memantine 7 mg capsule sprinkle,ext ended release 24hr TAKE 1 CAPSULE BY MOUTH EVERY DAY active Not Available Not Available No t Available OneTouch Ultra2 Meter DIRECTED active Not Available Not Avail able Not Available Paxlovid 300 mg (150 mg x 2)-100 mg tablets in a dose pack TAKE 2 TABLETS (NIRMATRELV IR) AND TAKE 1 TABLET (RITONAVIR) BY MOUTH TWICE A DAY FOR 5 DAYS active Not Available Not Available N ot Available Vitals Date Recorded Oxygen saturation Oxygen saturation in Arterial blood by Pulse oximetry Body temperature Heart rate Respiratory rate Systolic blood pressure Diastolic blood pressure Provider Name and Address Organization Details Last Updated DateTime 4 98 % 98 % 98.2 [degF] 76 /min 18 /min 144 mm[Hg] 82 mm[Hg] Not Available [facility] - production 12:56:22 Social History None recorded. Functional Status None recorded. Mental Status None recorded. Family History Nothing Reported. Medical History No medical history recorded. Past Encounters Encounter ID Performer Location Encounter Start Date Encounter Closed Date Diagnosis/Indication Diagnosis SNOMED-CT Code Diagnosis ICD10 Code [id number] Sylvia Valentin MD Main - [address] [address] 06/22/2024 10:50:15 06/22/2024 13:52:43 Cough 25191049 R05.9 [id number] [facility]OS [facility] [address] [place] [address] 07/03/2024 12:56:17 07/03/2024 21:40:01 Viral upper respiratory tract infection 481338355 J06.9 Health Concerns Section Related Observation LastModified by Organization Detai ls LastModified Time None Recorded Concern Status LastModified by Organization Details LastModified Time None Recorded Payers Encounter Date Sequence Insurance Name Policy Number Policy Arroyo Covered Member ID Arroyo Member ID Guarantor Name 07/03/2024 1 [facility] - DOS ON OR AFTER 2022 - DUAL ELIGIBLE - NURSING HOME OPTIONS AND ONE CARE (MEDICARE REPLACEMENT/ADV ANTAGE - HMO) Elijah Bearden [id number] Elijah Bearden Notes Date Note Type Note Provider Name and Address Organization Details Recorded Time 07/03/2024 text/html [facility] Nurse Triage Notes (Ryann Maldonado - RN): Reason For Request: Cough Patient Reports: Cough, fever greater than 2 days ; Cough Denies: Increased work of breathing/labored ? with or without fever Discoloration of skin -cyanosis Needs to sleep sitting up, can? t catch breath History of asthma, increased use of inhaler COPD COVID Exposure Chief Complaints: Cough PMH: Hypertension, Asthma, Diabetes Mellitus Type 2, Dementia (e.g., Alzheimer's Disease), Osteoarthritis, Cancer Comments: [employer] verified the member's name//address and phone number. Member's is calling to report dry cough x2days. Denies fever. Covid (-) 07/02. Denies exposure to sick contacts. Reports to have taken robitussin and albuterol nebulizers w/ some effect, but would like to be evaluated. Baseline dementia - denies any worsening confusion.Education provided on the response time and the member was advised to monitor reported s/s and seek emergency treatment if needed. 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 ? Address: [address] [place] [address], Petroleum Production Engineer: Mason HARRIS No.: [id number] Concrete Mixer Truck Driver POC Test Results from Nick Oconnell Rapid COVID antigen (12:55:28) COVID: - Attachments uploaded as part of this test result can be found under Documents section. Rapid influenza antigen (12:55:30) Flu: - Attachments uploaded as part of this test result can be found under Documents section. ................... ................... ................... ................... ................... ................... ................... ........ Concrete Mixer Truck Driver Note From Nick Oconnell: Dispatched to above address for URI symptoms. On arrival patients met SC8 at the door, reports patient 69 y/o M, HX COPD and dementia, has had a non productive cough for the last couple days, has been taking OTC medications with limited relief. Patient 69 y/o M, found sitting on couch, AOX2 per baseline, airway patent, speaking in full sentences, good color, in no apparent distress. Patient reports he has an itchy throat. Patient has intermittent dry sounding cough, patients reports it sounds wet and junky at night. Patients vital signs checked. Covid-19 and flu test checked, both negative. Secondary assessment, pupils PERRL, airway patent, no JVD, trachea midline, equal chest rise and fall, lung sounds faint crackles R upper lobe otherwise clear, abdomen soft non tender, no signs of trauma, good radial pulse, skin pink warm and dry. Patients reports he has an appointment with his laser technician on Friday for this. [facility] contacted, spoke with Dr. Ramos, advised of patient complaints, exam findings and test results. [facility] believes likely URI, recommends continued home care and monitoring and use of home nebulizer tx q6hrs. Patient and advised of [facility] recommendations, home care and red flags. Patient and understand all recommendations. Patient and have no additional questions or concerns at this time. SC8 clear. EOR. ................... ................... ................... ................... ................... ................... ................... ........ [facility] Consulted: Reji Ramos ................... ................... ................... ................... ................... ................... ................... ........ Disposition: Nish RAMOS MD [address] [facility],[address], [place], [address], KENDY - Mobisante 07/03/2024 21:39:58
--- OUTSIDE RECORDS SUMMARY | 2024-07-05 14:54 | XMS_ITS ---
Author Organization [facility] Address [address] [place] [address] Care Team Providers Care Retail Reset Merchandiser Name Role Phone Chung GONZALES, Yuri Primary Care Provider UnaRodolfo Jenkins Unavailable [phone] Encounters Encounter Location Date Provider Diagnosis [address] [address] 06/14/2024 Rodolfo Kaplan Plan Of Treatment Next Appt Details Provider Name:Rodolfo Kaplan , 09/29/2024 02:45:00 PM, [address] [place] [address], [place], [address], Progress Notes * Elijah BEARDENDOB:1955 ( 69 yo M)Acc No.[id number]:06/14/2024 Progress Note Patient:?Elijah BEARDEN Provider:?Rodolfo Kaplan DPM :1955???Age:69 Y???Sex:Male Francis e:06/14/2024 Address:[address] [id number] Pcp:Yuri Wilkes MD Subjective: * Chief Complaints: * ??? * Medical History:? Objective: * Vitals:? Assessment: Plan: * Treatment: * Images: * The named appointment provid er may or may not be the originator of this progress note, and it is not deemed complete until electronically signed by the appointment provider. Sign off status: Pending * Provider:?Rodolfo Kaplan DPM Date:?2023 Generated for Shanon bedoya/Stephanie/Leonor on:?07/05/2024 02:53 PM EST
--- OUTSIDE RECORDS SUMMARY | 2024-07-05 14:54 | XMS_ITS ---
Author Organization [facility] Address [address] [facility] [place] [address] Care Team Providers Care Security Specialist Name Role Phone Chung GONZALES, Irrigon Primary Care Provider UnaRodolfo Jenkins Unavailable [phone] REASON FOR VISIT 06/14/24 appt Encounters Encounter Location Date Provider [facility] [address] 06/14/2024 Rodolfo Kaplan Plan Of Treatment Next Appt Details Provider Name:Rodolfo Kaplan , 09/29/2024 02:45:00 PM, [facility] [address], [address], Progress Notes * Domenic BEARDENjostinDOB:1955 ( 69 yo M)Acc No.[id number]:06/14/2024 Patient:?Elijah BEARDEN :1955???Age:69 Y???Sex:Male Address:[address] [place] [address] * true * Date:? Generated for Printi elke/Stephanie/eTransmitting on:?07/05/2024 02:53 PM EST
--- OUTSIDE RECORDS SUMMARY | 2024-07-05 14:54 | XMS_ITS | Patient Health Record ---
Author Organization [facility] [place] Address [address] [facility] [place] [address] Care Team Providers Care Table Tender Sludge Name Role Phone Chung GONZALES [place] Primary Care Provider Rodolfo Tran Unavailable [phone] Flakito Jack Unavailable [phone] Allergies No Known Allergies Results Component Value Reference Range Notes HEMOGLOBIN A1C (GLYCOHEMOGLO BIN) Reviewed date:01/07/2024 01:05:41 PM Interpretation: Performing Lab: Notes/Report: HEMOGLOBIN A1C % (HH) 7.2 HEMOGLOBIN A1C (GLYCOHEMOGLO BIN) Reviewed date:06/24/2024 01:49:22 PM Interpretation: Performing Lab: Notes/Report: TOTAL HEMOGLOBIN (HGBA1C) 7.1 Reason For Referral No Information Medications Medication SIG (Take, Route, Frequency, Duration) Notes Start Date End Date Status metFORMIN HCl 1000 MG 1 tablet with a me al Orally Once a day Active Losartan Potassium 100 MG 1 tablet Orall y Once a day Active hydroCHLOROthiazide 12.5 MG 1 capsule in the morning Orally Once a day Active Carbidopa-Levodopa 25-100 MG PLEASE SEE ATTACHED FOR DETAILED DIRECTIONS Oral for 90 Days Active clonazePAM Not-Takin g Vitamin D3 250 MCG (87757 UT) as directed Orally Active Extra Depth Orthopedic Shoes, (1) Pair With (3) Pair Custom Heat Molded Multidensity Innersoles Dx: NIDDM/PVD(E11.51), Hammertoe Foot Deformity(M20.41,M20. 42), Preulcerative Skin Lesion(s)(L85.1) Wear Daily for 365 days 01/07/2024 Active Donepezil HCl Active MiraLax 17 GM/SCOOP 1 scoop mixed with 8 ounces of fluid Orally Once a day Not-Taking Memantine HCl Active Sertraline HCl 25 MG 1 tablet Orally Onc e a day Not-Taking Famotidine 20 MG 1 tablet at bedtime as needed Orally Once a day Not-Taking Social History Tobacco Use: Social History Observation [...] Are you an other tobacco user? No Problems Problem Type SNOMED Code ICD Code Onset Dates Problem Status W/U Status Risk Notes Problem Acquired hammer toe of right foot (7924811338858 105) Other hammer toe(s) (acquired), right foot (M20.41) Active confirmed Response to treatment,I mprovement Problem Acquired hammer toe of left foot (2980020247770 103) Other hammer toe(s) (acquired), left foot (M20.42) Active confirmed Response to treatment,I mprovement Problem Type 2 diabetes mellitus with peripheral angiopathy (361031763) Type 2 diabetes mellitus with diabetic peripheral angiopathy without gangrene (E11.51) Active confirmed Vital Signs Blood pressure diastolic 86 mm Hg 06/24/2024 Height 5ft 8in in 06/24/2024 Blood pressure systolic 132 mm Hg 06/24/2024 Weight 196 lbs 06/24/2024 BMI 29.8 kg/m2 06/24/2024 Procedures Procedure Date Ordered Date Performed Result Body Sit e 96041-SVYNGKT NAIL, 1-5 01/07/2024 N/A 54329-FHKI SKIN LESIONS, 2 TO 4 01/07/2024 N/A V5125-WHLIXPRR DYSTROPHIC NAILS ANY # 01/07/2024 N/A 30163-VCUOLJN NAIL, 1-5 03/18/2024 N/A 19083-HNGF SKIN LESIONS, 2 TO 4 03/18/2024 N/A Q6294-NCOGEKVH DYSTROPHIC NAILS ANY # 03/18/2024 N/A 25930-HTBJHCT NAIL, 1-5 06/24/2024 N/A 54506-HVPX SKIN LESIONS, 2 TO 4 06/24/2024 N/A V2863-WUJLOIGD DYSTROPHIC NAILS ANY # 06/24/2024 N/A Encounters Encounter Location Date Provider Diagnosis [address] [address] 01/07/2024 Rodolfo Kaplan Type 2 diabetes mellitus with diabetic peripheral angiopathy without gangrene E11.51 ; Tinea unguium B35.1 ; Pain in right toe(s) M79.674 ; Pain in left toe(s) M79.675 ; Other hammer toe(s) (acquired), right foot M20.41 and Other hammer toe(s) (acquired), left foot M20.[address] [address] 03/18/2024 Rodolfo Kaplan Type 2 diabetes mellitus with diabetic peripheral angiopathy without gangrene E11.51 ; Tinea unguium B35.1 ; Pain in right toe(s) M79.674 and Pain in left toe(s) M79.[address] [address] 06/24/2024 Rodolfo Kaplan Type 2 diabetes mellitus with diabetic peripheral angiopathy without gangrene E11.51 ; Tinea unguium B35.1 ; Pain in right toe(s) M79.674 ; Pain in left toe(s) M79.675 ; Other hammer toe(s) (acquired), right foot M20.41 and Other hammer toe(s) (acquired), left foot M20.42 [facility] [address] [place] [address] 07/10/2023 Jack Fraga [address] [address] 10/13/2023 Rodolfo Kaplan [address] [address] 06/14/2024 Rodolfo Kaplan Assessments Encounter Date Diagnosis (ICD Code) Assessment Notes Treatment Notes Treatment Clinical Notes Section Notes 01/07/2024 Tinea unguium (ICD-10 - B35.1) 01/07/2024 Type 2 diabetes mellitus with diabetic peripheral angiopathy without gangrene (ICD-10 - E11.51) 03/18/2024 Tinea unguium (ICD-10 - B35.1) 03/18/2024 Type 2 diabetes mellitus with diabetic peripheral angiopathy without gangrene (ICD-10 - E11.51) 06/24/2024 Tinea unguium (ICD-10 - B35.1) 06/24/2024 Type 2 diabetes mellitus with diabetic peripheral angiopathy without gangrene (ICD-10 - E11.51) 06/24/2024 Pain in right toe(s) (ICD-10 - M79.674) 01/07/2024 Pain in right toe(s) (ICD-10 - M79.674) 03/18/2024 Pain in right toe(s) (ICD-10 - M79.674) 03/18/2024 Pain in left toe(s) (ICD-10 - M79.675) 01/07/2024 Pain in left toe(s) (ICD-10 - M79.675) 06/24/2024 Pain in left toe(s) (ICD-10 - M79.675) 06/24/2024 Other hammer toe(s) (acquired), right foot (ICD-10 - M20.41) Response to treatment,Impro vement 01/07/2024 Other hammer toe(s) (acquired), right foot (ICD-10 - M20.41) Patient Educated with: DIABETIC FOOT CARE INSTRUCTIONS.p df (DIABETIC FOOT CARE INSTRUCTIONS.p df) 01/07/2024 Other hammer toe(s) (acquired), left foot (ICD-10 - M20.42) 06/24/2024 Other hammer toe(s) (acquired), left foot (ICD-10 - M20.42) Response to treatment,Impro vement Plan Of Treatment Pending Test Test Name Order Date 54253-HGJKEME NAIL, 1-5 01/07/2024 04184-DTTMJMW NAIL, 1-5 03/18/2024 56599-LSQUBDF NAIL, 1-5 06/24/2024 04265-HHVZ SKIN LESIONS, 2 TO 4 06/24/20 24 26654-EKCP SKIN LESIONS, 2 TO 4 01/07/20 24 92411-UORL SKIN LESIONS, 2 TO 4 03/18/20 24 C6529-UKXRYOQQ DYSTROPHIC NAILS ANY # L0130-FLIZNKRT DYSTROPHIC NAILS ANY # F5193-DEUEIWGO DYSTROPHIC NAILS ANY # Next Appt Details Provider Name:Rodolfo Kaplan , 09/29/2024 02:45:00 PM, [address] [facility], [address], [place], [address], Insurance Providers Payer Name Payer Address Payer Phone Subscriber Number Group Number Insured Name Patient Relationship to Insured Coverage Start Date Coverage End Date [facility] [employer] Claims [address] [place] [phone] [id number] Elijah Bearden Self - patient is the insured Medical (General) History Medical History History ICD Code Alzheimers disease Depression Vitamin D deficiency Memory impairment Hypertension type II diabetes Renal cell carcinoma of right kidney Anemia Diverticula of colon Cancer Dementia Diabetic High blood pressure Measles Chicken pox Surgical History Surgery Date(Month/Year) colonoscopy kidney removal, half 12/2020 sinus surgery esophagogastroduodenoscopy colon cancer 02/23/20 Hospitalization History Reason Date(Month/Year) ER- coughing 2023
--- OUTSIDE RECORDS SUMMARY | 2024-07-05 14:54 | XMS_ITS | Data Portability ---
Author Organization [facility] [email or web address] Address [address] [place] [address] Care Team Providers Care Manager Supply Chain Name Role Phone HIM CCA OTHER ANMOL MARQUEZ Primary Care Provider Assessment Encounter Date Assessment Date Assessment LastModified by Organization Details LastModified Time 02/19/2024 02/19/2024 I have reviewed and agree with the Assessment and Plan as documented by the Marketer. I provided real-time medical direction via phone for this encounter, and was available for additional phone based assistance as needed. Patient seen for several weeks of nocturnal cough. No fevers chills, chest pain. Seen at where reportedly CXR was unremarkable. Well appearing and AVSS, afebrile per report. Satting well on room air. Low suspicion for life threatening pulmonary illness. Per report of caregiver at bedside, pt had similar sxs in the past which were resolved by nasal corticosteroid. Pt no longer taking NCS per report but no hx of adverse rxn per report. On ARB but given report of post nasal drip seems unlikely to be ARB-related cough. Will trial NCS once more and reviewed red flags sxs with caregiver that should prompt ED eval. COVID and Flu POC tests negative. Patient would benefit from follow up with PCP to assess tx effect in 1-2 weeks. pallfather Not available 02/19/2024 10:35:04 06/22/2024 06/22/2024 I provided real -time medical direction via phone for this encounter, and was available for additional phone based assistance as needed. I have reviewed and agree with the Assessment and Plan as documented by the Marketer. The patient / given the opportunity to ask questions. Advised if develops CP/severe SOB/turning blue/AMS/ syncope/ hi fever to call 911- she verbalized understanding of instructions to the medic [email or web address] Not available 06/22/2024 13:10:23 Plan of Treatment Reminders Order Date Submit Date Provider Last Modified By Organization Details Last Modified Time Details Appointments None recorded. Lab rapid SARS CoV 2 Ag, QL IA, respiratory specimen 2023 024 DOMENICO [facility], [address] [place] [address], [id number], 4 12:14:29 rapid flu (A+B) 2023 024 DOMENICO [facility] - [facility], [address] [place] [address], [id number], 4 12:14:49 rapid SARS CoV 2 Ag, QL IA, respiratory specimen 2023 024 [email or web address] 0 [facility] - [facility], [address] [place] [address], [id number], 4 13:10:41 rapid flu (A+B) 2023 024 [email or web address] 0 [facility], [address] [place] [address], [id number], 4 13:10:41 BMP, serum or plasma 2023 [email or web address] 0 [facility] - [facility], [address] [place] [address], [id number], 4 13:10:41 rapid SARS CoV 2 Ag, QL IA, [facility] [address] [place] [address], [id number], 4 19:02:16 rapid flu (A+B) 2023 024 DOMENICO [facility] - [facility], [address] [place] [address], [phone], 4 19:02:38 Referral None recorded. Procedures None recorded. Surgeries None recorded. Imaging None recorded. Medication Orders fluticasone propionate 50 mcg/actuati on nasal spray,suspe nsion 2023 024 [facility] #[id number], [address] [facility], [place], [address], 10:22:30 Patient TargetsNo targets recorded. Patient InstructionsNo instructions recorded. Reason for Referral None Reported. Results Created Date Observation Date Name Description Value Unit Range Abnormal Flag Note LastModifiedBy Organization Detail LastModifiedTime 06/22/20 24 06/22/2024 rapid flu (A+B) Flu negati ve Not Available [facility] - [facility] [address] [place] [address], [id number], 06/22/2024 11:17:48 06/22/20 24 06/22/2024 rapid SARS CoV 2 Ag, QL IA, respi rator y speci men rapid SARS CoV 2 Ag, QL IA, respiratory specimen negati ve Not Available [facility] - [facility] [address] [place] [address], [id number], 06/22/2024 11:17:47 06/22/20 24 06/22/2024 BMP, serum or plasm a Ca 1.33 Not Available [facility] - [facility] [address] [place] [address], [id number], 06/22/2024 11:18:25 Result Notes None recorded. Medical Equipment None [...] Available N ot Available Vitals Date Recorded Respiratory rate Heart rate Body temperature Body height Oxygen saturation Oxygen saturation in Arterial blood by Pulse oximetry Body weight Systolic blood pressure Diastolic blood pressure Provider Name and Address Organization Details Last Updated DateTime 4 14 /min 62 /min 98 [degF] 182.88 cm 98 % 98 % 41752.6 g 122 mm[Hg] 82 mm[Hg] Not Available [facility] 4 10:19:48 Date Recorded Respiratory rate Body height Oxygen saturation Oxygen saturation in Arterial blood by Pulse oximetry Body weight Heart rate Body temperature Systolic blood pressure Diastolic blood pressure Provider Name and Address Organization Details Last Updated DateTime 4 14 /min 180.34 cm 98 % 98 % 77219.2 56 g 60 /min 98.7 [degF] 144 mm[Hg] 88 mm[Hg] Not Available [facility] production 4 10:50:18 Date Recorded Oxygen saturation Oxygen saturation in Arterial blood by Pulse oximetry Body temperature Heart rate Respiratory rate Systolic blood pressure Diastolic blood pressure Provider Name and Address Organization Details Last Updated DateTime 4 98 % 98 % 98.2 [degF] 76 /min 18 /min 144 mm[Hg] 82 mm[Hg] Not Available [facility] production 4 12:56:22 Social History None recorded. Functional Status None recorded. Mental Status None recorded. Family History Nothing Reported. Medical History No medical history recorded. Past Encounters Encounter ID Performer Location Encounter Start Date Encounter Closed Date Diagnosis/Indication Diagnosis SNOMED-CT Code Diagnosis ICD10 Code [id number] Reyes Hanna MD [facility] - [facility] [address] [place] [phone] 02/19/2024 10:19:45 02/20/2024 12:55:18 Cough 25643332 R05.9 [id number] Sylvia Valentin MD [facility] - [facility] [address] [place] [id number] 06/22/2024 10:50:15 06/22/2024 13:52:43 Cough [id number] R05.9 [id number] REJI RAMOS MD [facility] - [facility] [address] [place] [id number] 07/03/2024 12:56:17 07/03/2024 21:40:01 Viral upper respiratory tract infection 489954815 J06.9 Health Concerns Section Related Observation LastModified by Organization Detai ls LastModified Time None Recorded Concern Status LastModified by Organization Details LastModified Time None Recorded Advance Directives Directive None Recorded Payers Encounter Date Sequence Insurance Name Policy Number Policy Arroyo Covered Member ID Arroyo Member ID Guarantor Name 02/19/2024 1 [facility] - DOS ON OR AFTER 2022 - DUAL ELIGIBLE - SHELTER OPTIONS AND ONE CARE (MEDICARE REPLACEMENT/ADV ANTAGE - HMO) Elijah Bearden [id number] [facility] 06/22/2024 1 [facility] - DOS ON OR AFTER 2022 - DUAL ELIGIBLE - SHELTER OPTIONS AND ONE CARE (MEDICARE REPLACEMENT/ADV ANTAGE - HMO) [facility] [id number] [facility] 07/03/2024 1 [facility] - DOS ON OR AFTER 2022 - DUAL ELIGIBLE - SHELTER OPTIONS AND ONE CARE (MEDICARE REPLACEMENT/ADV ANTAGE - HMO) [facility] [id number] [facility] Notes Date Note Type Note Provider Name and Address Organization Details Recorded Time 02/19/2024 text/html [facility] Nurse Triage Notes (Jennifer Cota): Reason For Request: coughing during nighttime Chief Complaints: Cough PMH: Diabetes, Severe Dementia, Hypertension Allergies: No Known Comments: Search Consultant verified the member's name//address and phone number. Member is a 68 yr old male PMH > dementia/ DM/ HTN ( takes losartan)Allergies > NKDA Spouse calling for member with increased coughing during the night. Member went to 2 weeks ago, xrays are clear , did not find anything. Member has dementia, can express himself says feel like a tickle. Member is also DM and concerned with what meds to give him. Bs are WNL. Member does not have f/c/n/v/d. Education was provided on the response time and the member was advised to monitor reported s/s and seek emergency treatment if needed Marketer Organization Information for Adam Duval Business Legal Name: [facility] Address: [address] [place] [address], [place] [address], [employer] Field Agent: César Dominguez MD CLIA No.: [id number] Marketer POC Test Results from Adam Duval Rapid COVID antigen (10:16:04) COVID: - Rapid influenza antigen (10:16:05) Flu: - .................... .................... .................... .................... .................... .................... .................... . Marketer Note From Mukund Adam: Patient seated in chair, caregiver reports patient acting normally, with his dementia. Caregiver reports patient has a cough while trying to sleep at night. Sometimes keeps him from sleeping. Caregiver has been administering Robitussin at night with little relief. Patient complains of runny nose times three weeks. Patient denies change of appetite, intake or elimination. Patient has not had fevers and denies nausea vomiting diarrhea, or any other pain or complaint. Patient states it? s not a burning feeling, it? s a small tickle at the back of his throat.Patient pink warm dry, secondary exam unremarkable. Lung sounds clear in all bullock. Oropharynx appears normal, no white or swollen areas. Patient does not use inhalers.Patient negative for Covid and flu via rapid POC. [facility] orders Flonase to patient local pharmacy. Care and plan discussed with caregiver, grateful for service and expect to call back in the future. Red flags, patient education discussed. Supportive care, including tea with honey, and use of the Flonase device discussed. .................... .................... .................... .................... .................... .................... .................... . Disposition: Fulfilled Reyes Hanna MD [address] [facility],[address], [place], [phone], [facility] 02/19/2024 11:14:41 06/22/2024 text/html HPI: See if u could draw blood?? .................... .................... .................... .................... .................... .................... .................... . [facility] Nurse Triage Notes (Monica Menon - RN): Denies: Increased work of breathing/labored ? with or without fever Unable to speak in full sentences without distress Discoloration of skin -cyanosis Needs to sleep sitting up, can? t catch breath Shortness of breath in setting of confusion Chief Complaints: Cough, WeaknessPMH: Hypertension, Asthma, Diabetes Mellitus Type 2, Dementia (e.g., Alzheimer's Disease), Osteoarthritis, CancerComments: Patients requested visit via portal, patient identified via name and . 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 Patient with a cough for quite some time, +white phlegm this morning, no chest congestion, no fever/chills, no headache or dizziness, no chest pain or shortness of breath, no n/v/d, great appetite per . Patient is also scheduled to have a CT chest/abd on with dye, and they are requesting his kidney function, and would like that performed so he can have his yearly scan due to the history of colon ca. He had a CXR in mar that was negative. She would like him evaluated. Marketer Organization Information for Ying Raya Rose Alvarado Legal Name: [employer] [employer] [facility] ? Address: [address] [place] [address], [place] [address], [employer] Field Agent: Mason GROSSMANIA No.: [id number] Marketer POC Test Results from Ying Raya DEYA iSTAT Chem8+ (11:02:31) Na: 141 mEq/L K: 3.9 mEq/L Cl: 101 mEq/L iCa: 1.33 mmol/L TCO2: 26 mmol/L Glu: 172 mg/dL BUN: 13 mg/dL Crea: 1.1 mg/dL Hct: 48 % Hb: 16.3 g/dL A SEGMD: Cough worse at night. No fever/chills/chest pain. Patient has not had his a.m. meds yet. Patient also has a history of Parkinson's per his in addition to above. Rapid COVID antigen (:55) COVID: - Rapid influenza antigen (18:58) Flu: - .................... .................... .................... .................... .................... .................... .................... . Marketer Note From Ying Raya: [facility] makes pt contact after being admitted to the home by pt's . He is found seated on the sofa w/ his arm resting on the arm rest and his head resting on that fist. He is conscious and alert and greets [facility]. He doesn't speak much at baseline, but no slurred speech, facial droop, or one-sided weakness are noted. No stridor or sonorous respirations are present and he is not bleeding anywhere. Pt is slow to respond to questions, but answers all appropriately. endorses normal mentation and baseline affect at this time and she is his historian today. Pt offers no complaints of pain or discomfort at this time. says she called because the pt has developed a cough over the past three months that has been dry and gets worse at night. She is denying yellow, green, or brown-colored sputum. She says robitussin helps calm the cough so he can rest. There have been no sick contacts and pt has had no cp, sob, n/v/d, abd pain, fever/chills, or sore throat. also says she would like to have his bloodwork tested today, as pt is getting ready to have a CT scan of his chest, abd, and kidneys. She consents to evaluation today for the pt.[facility] obtains vital signs and pt is physically assessed. Nothing remarkable is noted upon physical exam. A 21ga butterfly is used to attempt IV cannulation for blood draw in R forearm and is unsuccessful. A second 21ga butterfly is used in the R forearm for blood draw and is successful. Chem 8+ is performed and results are uploaded. [facility] contacts [facility] to discuss the above findings. [facility] requests a rapid COVID and flu in preparation for the CT. Pt's iCal is noted to be high. Rapid COVID and flu are performed and found to be negative. thanks [facility] for coming.[facility] is clear. Report completed by MICHELLE Raya [id number]. [facility] Lab Orders: rapid SARS CoV 2 Ag, QL IA, respiratory specimen: Performed .................... .................... .................... .................... .................... .................... .................... . [facility] Consulted: Sylvia Valentin .................... .................... .................... .................... .................... .................... .................... . Disposition: Fulfilled Sylvia Valentin MD [address] [facility], [place], [address], [employer] 06/22/2024 13:10:57 07/03/2024 text/html CRC Nurse Triage Notes (Ryann [...] Dementia (e.g., Alzheimer's Disease), Osteoarthritis, Cancer Comments: Search Consultant verified the member's name//address and phone number. [...] s/s and seek emergency treatment if needed. Marketer Organization Information for Nick Oconnell Business Legal Name: [employer]? ? Address: [address] [place] [address], [employer] Field Agent: Mason Willis MD [place] No.: [id number] Marketer POC Test Results from Nick Oconnell Rapid COVID antigen (12:55:28) COVID: - Attachments uploaded as part of this test result can be found under Documents section. Rapid influenza antigen (12:55:30) Flu: - Attachments uploaded as part of this test result can be found under Documents section. .................... .................... .................... .................... .................... .................... .................... . Marketer Note From Nick Oconnell: Dispatched to above [...] reports he has an appointment with his judge clerk on Friday for this. [facility] contacted, spoke with Dr. Ramos, advised of patient complaints, exam findings and test results. [facility] believes likely URI, recommends continued home care and monitoring and use of home nebulizer tx q6hrs. Patient and advised of [facility] recommendations, home care and red flags. Patient and understand all recommendations. Patient and have no additional questions or concerns at this time. MS8 clear. [facility]. .................... .................... .................... .................... .................... .................... .................... . [facility] Consulted: Reji Ramos .................... .................... .................... .................... .................... .................... .................... . Disposition: Nish RAMOS MD [address] [facility], [place], [address], [facility] 07/03/2024 21:39:58
--- OUTSIDE RECORDS SUMMARY | 2024-07-05 14:55 | XMS_ITS | Continuity of Care Document ---
Author Organization Information Gateway [facility], [place] - Formerly [facility] Address [address] [place] [phone] Care Team Providers Care Mysql Database Developer Name Role Phone HIM CCA OTHER ANMOL MARQUEZ Primary Care Provider Assessment Encounter Date Assessment Date Assessment LastModified by Organization Details LastModified Time 06/22/2024 06/22/2024 I provided real -time medical direction via phone for this encounter, and was available for additional phone based assistance as needed. I have reviewed and agree with the Assessment and Plan as documented by the Correctional Lieutenant. The patient / given the opportunity to ask questions. Advised if develops CP/severe SOB/turning blue/AMS/ syncope/ hi fever to call 911- she verbalized understanding of instructions to the medic [email or web address] Not available 06/22/2024 13:10:23 Plan of Treatment Reminders Order Date Submit Date Provider Last Modified By Organization Details Last Modified Time Details Appointments None recorded. Lab rapid SARS CoV 2 Ag, QL IA, respiratory specimen 2023 [email or web address] 0 [facility], [address] [place] [address], [phone], 4 13:10:41 rapid flu (A+B) 2023 024 [email or web address] 0 [facility], [address] [place] [address], [phone], 4 13:10:41 BMP, serum or plasma 2023 024 [email or web address] 0 [facility], [address] [place] [address], [phone], 4 13:10:41 Referral None recorded. Procedures None recorded. Surgeries None recorded. Imaging None recorded. Medication Orders None recorded. Patient TargetsNo targets recorded. Patient InstructionsNo instructions recorded. Reason for Referral None Reported. Results Created Date Observation Date Name Description Value Unit Range Abnormal Flag Note LastModifiedBy Organization Detail LastModifiedTime 06/22/20 24 06/22/2024 rapid flu (A+B) Flu negati ve Not Available [facility] [address] [place] [address], [phone], 06/22/2024 11:17:48 06/22/20 24 06/22/2024 rapid SARS CoV 2 Ag, QL IA, respi rator y speci men rapid SARS CoV 2 Ag, QL IA, respiratory specimen negati ve Not Available [facility] - [facility] [address] [place] [address], [phone], 06/22/2024 11:17:47 06/22/20 24 06/22/2024 BMP, serum or plasm a Ca 1.33 Not Available [facility] - [facility] [address] [place] [address], [phone], 06/22/2024 11:18:25 Result Notes None recorded. Medical [...] ot Available Vitals Date Recorded Respiratory rate Body height Oxygen saturation Oxygen saturation in Arterial blood by Pulse oximetry Body weight Heart rate Body temperature Systolic blood pressure Diastolic blood pressure Provider Name and Address Organization Details Last Updated DateTime 4 14 /min 180.34 cm 98 % 98 % 43051.2 56 g 60 /min 98.7 [degF] 144 mm[Hg] 88 mm[Hg] Not Available [facility] 4 10:50:18 Social History None recorded. Functional Status None recorded. Mental Status None recorded. Family History Nothing Reported. Medical History No medical history recorded. Past Encounters Encounter ID Performer Location Encounter Start Date Encounter Closed Date Diagnosis/Indication Diagnosis SNOMED-CT Code Diagnosis ICD10 Code [id number] Sylvia Valentin MD Main - [address] [address] 06/22/2024 10:50:15 06/22/2024 13:52:43 Cough 55822221 R05.9 Health Concerns Section Related Observation LastModified by Organization Diana petty LastModified Time None Recorded Concern Status LastModified by Organization Details LastModified Time None Recorded Payers Encounter Date Sequence Insurance Name Policy Number Policy Arroyo Covered Member ID Arroyo Member ID Guarantor Name 06/22/2024 1 [facility] - DOS ON OR AFTER 2022 - DUAL ELIGIBLE - FDC OPTIONS AND ONE CARE (MEDICARE REPLACEMENT/ADV ANTAGE - HMO) Elijah Bearden [id number] Elijah Bearden Notes Date Note Type Note Provider Name and Address Organization Details Recorded Time 06/22/2024 text/html HPI: See if u could draw blood?? .................. .................. .................. .................. .................. .................. .................. ............... CRC Nurse Triage Notes (Monica Menon - [...] was negative. She would like him evaluated. Correctional Lieutenant Organization Information for [facility] Legal Name: [employer]? ? Address: [address] [place] [id number], Accounts Payable Technician: Mason Willis MD CLIA No.: [id number] Correctional Lieutenant POC Test Results from [facility] iSTAT Chem8+ (11:02:31) Na: 141 mEq/L K: [...] in addition to above. Rapid COVID antigen (11:18:55) COVID: - Rapid influenza antigen (11:18:58) Flu: - .................. .................. .................. .................. .................. .................. .................. ............... Correctional Lieutenant Note From [facility]: [facility] makes pt contact after being admitted to the home by pt's . He is found seated on the sofa w/ his arm resting on the arm rest and his head resting on that fist. He is conscious and alert and greets [facility]. He doesn't speak much at baseline, [...] She consents to evaluation today for the pt.[facility] obtains vital signs and pt is physically assessed. Nothing remarkable is noted upon physical exam. A 21ga butterfly is used to attempt IV cannulation for blood draw in R forearm and is unsuccessful. A second 21ga butterfly is used in the R forearm for blood draw and is successful. Chem 8+ is performed and results are uploaded. [facility] contacts [facility] to discuss the above findings. [facility] requests a rapid COVID and flu in preparation for the CT. Pt's iCal is noted to be high. Rapid COVID and flu are performed and found to be negative. thanks [facility] for coming.[facility] is clear. Report completed by MICHELLE Raya [id number]. [facility] Lab Orders: rapid SARS CoV 2 Ag, QL IA, respiratory specimen: Performed .................. .................. .................. .................. .................. .................. .................. ............... [facility] Consulted: Sylvia Valentin .................. .................. .................. .................. .................. .................. .................. ............... Disposition: Fulfilled Sylvia Valentin MD [address] [facility],[address], [place], [phone], KENDY - BLOSSOM NUGENT 06/22/2024 13:10:57
== END 2024-07-05 15:34 | disposition home or self-care (01) ==
PROVIDERS: PCP Internal Medicine; Visit Provider Nurse Practitioner Family
DX: R05.9 Cough, unspecified (principal); F03.90 Unspecified dementia, unspecified severity, without behavioral disturbance, psychotic disturbance, mood disturbance, and anxiety; R13.10 Dysphagia, unspecified
CPT/HCPCS: 99214

== ENCOUNTER → 2024-07-05 15:42 | Outpatient (BNV) | payer OTHER, SELFPAY | PROVIDERS: PCP Internal Medicine; Visit Provider Radiology Diagnostic Radiology | DX: R05.9 Cough, unspecified (principal) | CPT/HCPCS: 71046 ==

== ENCOUNTER 2024-07-13 12:40 | Outpatient (AMB) | payer OTHER, SELFPAY ==
[2024-07-13 12:40] VITALS: BMI 26.9
--- NOTE | 2024-07-13 12:40 | MHC.OFFVIS ---
Vital Signs 07/13/24 12:40 Height 5 ft 11 in Weight 193 lb BMI 26.9 Intake Visit Reasons: Follow up Amnesia Moss Picker Required: No Accompanied by: Spouse Allergies No Known Allergies [No Known Allergies*] Allergy (Verified 07/13/24 12:41) Medication List - Last Reconciled 07/13/24 by AUGUSTIN Garcia [ADULT PULL UPS (large) As directed] albuterol sulfate 2.5 mg (3 mL) inhalation QID PRN 30 days [Bed pads As directed] blood sugar diagnostic (Culinary Agents Ultra Test strips) As directed once a day blood-glucose meter (Culinary Agents Ultra2 Meter) As directed blood-glucose meter,continuous (orderTalkStyle Jermaine 3 Dille) As directed blood-glucose sensor (FreeStyle Jermaine 3 Sensor device) As directed carbidopa-levodopa 25-100 mg 1 tab PO BID 30 days cetirizine (Zyrtec) 10 mg PO DAILY cholecalciferol (vitamin D3) 250 mcg PO 2XW 90 days clonazepam 0.25 mg (1/2 x 0.5 mg) PO BEDTIME PRN 30 days [Commode As directed] dextromethorphan-guaifenesin 10-100 mg/5 mL 10 mL PO Q6H PRN [DIABETIC SHOES (1 pair) As directed] [disposable bed pads /10 packs As directed] doxycycline monohydrate 100 mg PO BID famotidine 20 mg PO BID 90 days fluticasone furoate 100 mcg/actuation (Arnuity Ellipta) 1 inh inhalation DAILY fluticasone propionate 50 mcg/actuation 1 spray intranasal BID hydrochlorothiazide 12.5 mg PO DAILY 90 days [incontinent wipes / 10 packs As directed] ipratropium-albuterol 0.5 mg-3 mg(2.5 mg base)/3 mL 3 mL inhalation Q6H PRN lancets (Opta SportsdataTouch UltraSoft Lancets) As directed once a day lancets As directed lorazepam 0.25 mg (1/2 x 0.5 mg) PO TID PRN losartan 100 mg PO DAILY 90 days melatonin 9 mg (3 x 3 mg) PO BEDTIME 30 days melatonin ER 3 - 6 mg orally QHS; 30 days memantine 21 mg PO DAILY 30 days metformin 1,000 mg PO DAILY [Non slip bath mat As directed] nut.tx.gluc.intol,lac-free,soy (Glucerna oral liquid) 1 can orally TID with meals; 30 days omeprazole 20 mg PO DAILY polyethylene glycol 3350 (Miralax) 17 grams PO DAILY 30 days [SHOE INSERTS (3 pairs) As directed] [Shower handle As directed] thiamine HCl (vitamin B1) 100 mg PO DAILY 90 days [Transport chair light weight As directed] walker (Ultra-Light Rollator misc) As directed [wheelchair back cushion As directed] [wheelchair seat cushion As directed] HPI Comments Details: 69-yr-old male presents for f/u televideo visit of dementia, accompanied by his , Sylvia. In June, patient's called to report BLE pins and needles. At that time, we added lab workup for nutritional deficiencies, which showed low serum vitamin B1 < 6. Thus, we started patient on a vitamin B1 supplement. He is needing more help with ADLs, using the bathroom and now incontinence care- is not always able to say when he has been incontinent, will just noticing him pacing. now has to demonstrate how to brush his teeth every morning. Has difficulty initiating tasks. He is resistive to taking a shower. He is continuing to have coughing, especially at night. Denies coughing runny nose while eating. Had pulmonary follow-up, CXR was clear. Has been referred for MBS. Was also just started on treatment for postnasal drip. He is eating ok. Is taking Boost qam. He is not talking as much, does not always understand what he is trying to say. He is still rolling his fingers. Patient did start CD-LD 25-100mg 1/2 tab bid which was then increased to 1 tab b.i.d.. Since, is walking a bit better since starting CD-LD, but gait is worse after 4pm. He did PT, who advised them that he was not safe to use a walker as he tends to push the walker out too much. He has not had any falls- and son walk with him. Since starting CD-LD, he has had less episodes of after it becomes dark, walking up to his bedroom and just sitting in the dark. Pt has been sleeping better with Clonazepam. He is tolerating Memantine 21mg ER qd and Donepazil 5mg qd well. Donepazil at 10mg qd caused GI.. Initial history of cognitive symptoms: He has had memory issues since he underwent chemotherapy for colon cancer stopped 4 yrs ago- and since this has progressed. Pt cognitive symptoms are worse in the evening- he is confused at night. He denies family h/o early onset dementia on his mother's side, and does not know his father's side. 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 Previous Work-up: 03/04/2024, at [facility], CT PET [facility] Brain Imaging: IMPRESSION: The scan is positive, indicating moderate to frequent amyloid neuritic plaques. 01/26/24, MR/MR head/brain wo/w con, MRA head w/o: IMPRESSION: * Stable pattern foci of susceptibility signal within the periphery of the cerebral hemispheres bilaterally as well as chronic siderosis. The patient is young for amyloid angiopathy however amyloid angiitis could appear similar at this age demographic. * Global cerebral volume loss and moderate chronic microangiopathy again noted. 06/2023 MR/MR head/brain wo con IMPRESSION: Numerous foci of susceptibility artifact in a peripheral distribution may be seen in the setting of underlying cerebral amyloid angiopathy. Clinical correlation is recommended. Mild generalized cerebral volume loss with associated ventricular and sulcal prominence. Mild to moderate chronic microvascular ischemic change. [facility] Medical History Cerebral amyloid angiopathy Obstructive sleep apnea Overweight (BMI 25.0-29.9) Alzheimer's dementia Depression Vitamin D deficiency Memory impairment Renal cell carcinoma of right kidney Essential hypertension Type 2 diabetes mellitus with unspecified complications H/O malignant neoplasm of small intestine Diverticula of colon Kidney mass Anemia Diabetes Hypertension Surgical History Hx of colonoscopy Hx of kidney removal History of esophagogastroduodenoscopy (EGD) H/O sinus surgery Family History Father No problems noted. Mother Heart disease Pancreas cancer Maternal Grandmother Stomach cancer Social History Household Members: Spouse Housing: Apartment Are you a primary managed care director to a significant other at home: No Do you presently have visiting nurse or other home services: No Alcohol intake: former Comment: given as premed Patient Tobacco Use Status: Former Tobacco user Tobacco use type: Cigar e-Cigarette/Vaping Use: Never Used Second Hand Smoke Exposure: No Advance Directives Date on File: 09/12/20 service: No Current occupational status: retired Cognitive needs: No Hearing needs: No Vision needs: Yes (glasses) Physical Exam Vital Signs: BMI result Body Mass Index 26.9 Const General: cooperative and no acute distress Resp Effort & Inspection: normal respiratory effort and able to speak in complete sentences Telehealth Telehealth Telehealth Platform: Needle Location of provider rendering services: practice address Location of patient: address on file Patient Identification confirmed using: Name, : Yes Telehealth method: video Patient verbally consented to treatment: Yes Patient verbally consented to billing insurance company: Yes Patient informed of any privacy concerns related to visit: Yes Minutes spent on Phone/Video with Pt.: 31 Assessment & Plan Assessment & Plan (1) Dementia in Alzheimer's disease: Comment: w/ 49 yo son w/ cognitive s/s. Code(s): G30.9 - Alzheimer's disease, unspecified; F02.80 - Dementia in other diseases classified elsewhere, unspecified severity, without behavioral disturbance, psychotic disturbance, mood disturbance, and anxiety Category: Medical (2) Gait difficulty: Code(s): R26.9 - Unspecified abnormalities of gait and mobility Category: Medical (3) Alzheimer's dementia: Code(s): G30.9 - Alzheimer's disease, unspecified; F02.80 - Dementia in other diseases classified elsewhere, unspecified severity, without behavioral disturbance, psychotic disturbance, mood disturbance, and anxiety Category: Medical Qualifiers: Alzheimer's disease onset: unspecified onset Dementia severity: unspecified severity Dementia behavioral or psychological symptom: without behavioral, psychotic, or mood disturbance or anxiety Qualified Code(s): G30.9 - Alzheimer's disease, unspecified; F02.80 - Dementia in other diseases classified elsewhere, unspecified severity, without behavioral disturbance, psychotic disturbance, mood disturbance, and anxiety (4) Cerebral amyloid angiopathy: Code(s): E85.4 - Organ-limited amyloidosis; I68.0 - Cerebral amyloid angiopathy Category: Medical (5) Bradykinesia: Code(s): R25.8 - Other abnormal involuntary movements Category: Medical (6) Lower extremity weakness: Code(s): R29.898 - Other symptoms and signs involving the musculoskeletal system Category: Medical (7) Obstructive sleep apnea: Comment: Mild degree of sleep apnea. The AHI was 08/hr and oxygen bucky was 87%. Code(s): G47.33 - Obstructive sleep apnea (adult) (pediatric) Category: Medical (8) Sleep difficulties: Code(s): G47.9 - Sleep disorder, unspecified Category: Medical Plan Recent brain MRI/MRA and PET scan- results c/w a Alzheimer's dementia w/ cerebral amyloid angiopthy. Comprehensive neuro-psych evaluation as ordered. Pt is fluent in Japanese. Will follow-up on referral for genetics evaluation- to assess for genetics causes of young onset dementia s/s. Concur with MBS order Continue supportive care, patient is requiring increased assistance with ADLs. Continue Melatonin- up to 9 mg Q HS. Continue Clonazepam 0.25-0.5mg qhs. Continue Donepazil 5mg qd- decreased from 10mg d/t GI upset and anorexia. Increase Memantine ER from 21 mg to 28 mg qd. Continue carbidopa-levodopa 25-100 mg p.o. b.i.d- has helped to improve gait. Continue vitamin B1 100 mg q.d. supplement recheck level in 3 months. Transport wheelchair order written, patient use p.r.n. for medical appointments, shopping, family visits. Patient would benefit from transport wheelchair as he is at a high risk for falls to bradykinesia secondary to Alzheimer's dementia. Continue engaging pt in daily exercise, as well as cognitive and socially stimulating activities. However, advised to set a schedule for activities, limit number of daily activities. Pt may also benefit from trying bright or SAD type light exposure. Commended on allowing pt time to relax, reproach or redirect pt when pt is frustrated/irritated. Encourage PAP use, however sleep apnea is mild so we do not have to force pt to use it. Continue optimized sleep hygiene practices. Pt to follow-up in 6 months or sooner prn. Orders: Orders Vitamin B1 Today R79.89 - Other specified abnormal findings of blood chemistry Medications: New chair, wheel (Wheel chair) Transport wheelchair As directed. To reduce risk for falls secondary to gait d/o and Alzheimer's dementia. 1 ea 1RF F02.80 - Dementia in other diseases classified elsewhere, unspecified severity, without behavioral disturbance, psychotic disturbance, mood disturbance, and anxiety, G30.9 - Alzheimer's disease, unspecified, R26.9 - Unspecified abnormalities of gait and mobility, R29.898 - Other symptoms and signs involving the musculoskeletal system memantine 28 mg PO DAILY 30 days 30 ea 6RF Discontinued memantine Discontinued Reason: Doctor's Order 21 mg PO DAILY 30 days 30 ea 1RF Coding Level of Care Code Tele Est Pt Level 4 (95110) Complex EM visit Add On G2211 Diagnoses Dementia in Alzheimer's disease G30.9; F02.80 Gait difficulty R26.9 Alzheimer's dementia without behavioral disturbance, psychotic disturbance, mood disturbance, or anxiety, unspecified dementia severity, unspecified timing of dementia onset G30.9; F02.80 Alzheimer's disease onset: unspecified onset Dementia severity: unspecified severity Dementia behavioral or psychological symptom: without behavioral, psychotic, or mood disturbance or anxiety Cerebral amyloid angiopathy E85.4; I68.0 Bradykinesia R25.8 Lower extremity weakness R29.898 Obstructive sleep apnea G47.33 Sleep difficulties G47.9
== END 2024-07-13 14:53 | disposition home or self-care (01) ==
PROVIDERS: PCP Internal Medicine; Visit Provider Nurse Practitioner Family
DX: G30.9 Alzheimer's disease, unspecified (principal); F02.80 Dementia in other diseases classified elsewhere, unspecified severity, without behavioral disturbance, psychotic disturbance, mood disturbance, and anxiety; R26.9 Unspecified abnormalities of gait and mobility; E85.4 Organ-limited amyloidosis; I68.0 Cerebral amyloid angiopathy; R25.8 Other abnormal involuntary movements; R29.898 Other symptoms and signs involving the musculoskeletal system; G47.33 Obstructive sleep apnea (adult) (pediatric); G47.9 Sleep disorder, unspecified
CPT/HCPCS: 99214; G2211

== ENCOUNTER → 2024-07-13 12:40 | Outpatient (BNVA) | payer OTHER, SELFPAY | PROVIDERS: PCP Internal Medicine; Visit Provider Nurse Practitioner Family | DX: G47.00 Insomnia, unspecified (principal); R41.3 Other amnesia; I10 Essential (primary) hypertension; E11.8 Type 2 diabetes mellitus with unspecified complications; R40.0 Somnolence; R06.83 Snoring; F03.90 Unspecified dementia, unspecified severity, without behavioral disturbance, psychotic disturbance, mood disturbance, and anxiety; E78.5 Hyperlipidemia, unspecified; D64.9 Anemia, unspecified; R90.89 Other abnormal findings on diagnostic imaging of central nervous system ==

== ENCOUNTER 2024-07-14 14:43 | Outpatient (REF) | payer OTHER, SELFPAY ==
--- OUTSIDE RECORDS SUMMARY | 2024-07-14 14:46 | XMS_ITS ---
Author Organization [facility] Address [address] [facility] [place] [address] Care Team Providers Care Blow Pit Helper Name Role Phone Chung GONZALES, [place] Primary Care Provider Rodolfo Tran Unavailable [phone] Allergies No Known Allergies REASON FOR VISIT [...] a day Active Vitamin D3 250 MCG (73422 UT) as directed Orally Active Extra Depth [...] an other tobacco user? No Vital Signs Blood pressure systolic 132 mm Hg 06/24/20 24 Blood pressure diastolic 86 mm Hg 024 Height 5ft 8in in 06/24/2024 Weight 196 lbs 06/24/2024 BMI 29.8 kg/m2 06/24/2024 Procedures Procedure Date Ordered Date Performed Result Body Sit e 15295-OMUDJOT NAIL, 1-5 06/24/2024 N/A 07827-WJTO SKIN LESIONS, 2 TO 4 06/24/2024 N/A N2842-HQVNDUMH DYSTROPHIC NAILS ANY # 06/24/2024 N/A Encounters Encounter Location Date Provider Diagnosis [facility] [address] [address] 06/24/2024 Rodolfo Kaplan Type 2 diabetes mellitus [...] Treatment Pending Test Test Name Order Date 14523-SNCDNNJ NAIL, 1-5 06/24/2024 67619-YBRD SKIN LESIONS, 2 TO 4 06/24/20 E6636-[id number] DYSTROPHIC NAILS ANY # Next Appt Details Follow Up: 2 Months, Reason: Provider Name:Rodolfo Kaplan , 09/29/2024 02:45:00 PM, [address], [address], [place], [address], Procedure Notes * Category Sub-Category Detail Notes [...] instrumentation by the physician of record - 34580, Q8 Debride Nails 1-5 Procedure: Due to [...] necessary to maintain effective symptomatic relief - 09530 Nail Reduction Nail Reduction (-27) Trimming o [...] * Elijah BEARDENDOB:1955 ( 69 yo M)Acc No.[id number]:06/24/2024 Progress Note Patient:?Elijah BEARDEN Provider:?Rodolfo Kaplan DPM :1955???Age:69 Y???Sex:Male Francis e:06/24/2024 Address:[address] [place], [place] [id number] Pcp:Yuri Wilkes MD Subjective: * Chief Complaints: [...] Once a day Vitamin D3 250 MCG (37586 UT) Tablet as directed Orally Extra Depth [...] a day Taking Vitamin D3 250 MCG (10486 UT) Tablet as directed Orally Taking Extra [...] to treatment,Improvement??? Plan: * Treatment: 2.?Tinea unguium?Procedure: 15571-XJJYYNC NAIL, 1-5 * Procedures:?Debride Nails 1-5:?Procedure:?Due to [...] necessary to maintain effective symptomatic relief - 48053.?Keratoma Treatment:?Parring or Cutting of Benign Hyperkeratotic Lesion(s)?(-56) [...] instrumentation by the physician of record - 02876, Q8.?Nail Reduction:?Nail Reduction?(-27) Trimming of all dystrophic [...] DYSTROPHIC NAILS ANY #, Modifiers: XS , [id number] DEBRIDE NAIL, 1-5, Modifiers: XS 85069 TRIM SKIN LESIONS, 2 TO 4, Modifiers: [...] Kaplan DPM Date:?2023 Generated for Shanon bedoya/Stephanie/Leonor on:?07/14/2024 02:45 PM EST History and Physical Notes * [...]
[2024-07-14 16:02] LABS: Blood Urea Nitrogen 13 mg/dL (9-16); Estimated Glomerular Filt Rate > 60
== END 2024-07-14 14:44 | disposition home or self-care (01) ==
LOC: HO.LAB 14:43
PROVIDERS: PCP Internal Medicine; Visit Provider Internal Medicine
DX: Z13.89 Encounter for screening for other disorder (principal)
CPT/HCPCS: 36415; 82565; 84520

== ENCOUNTER 2024-07-21 09:38 | Outpatient (REF) | payer OTHER, SELFPAY ==
--- NOTE | ~2024-07-21 | CT_ITS ---
CLINICAL HISTORY: Surveillance, bowel cancer history CT abdomen and pelvis with contrast Comparison: None Findings: No consolidation or effusion. Contour abnormality of the upper pole of the right kidney without discrete mass lesion. Correlation with prior imaging recommended. The left kidney demonstrates benign cysts without obstructive uropathy or suspicious lesion. The liver, gallbladder, spleen and right adrenal gland are unremarkable. The left adrenal gland demonstrates diffuse low-density fullness. Patent right lower quadrant bowel anastomosis. Normal appendix. No bowel obstruction, free air, free fluid, abscess or significant adenopathy. Mild fecal retention within the colon. The bladder is distended without focal abnormality. The prostate gland is within expected limits. No acute osseous abnormality. Impression: No evidence of recurrent disease within the abdomen or pelvis. Low-density fullness within the left adrenal gland diffusely. This most likely reflects adenomatous hypertrophy. Correlation with prior imaging. This document has been electronically signed by: Dhriaj Rincon MD on 07/22/2024 10:20:52
--- NOTE | ~2024-07-21 | CT_ITS ---
CLINICAL HISTORY: Surveillance, history of bowel cancer CT chest with contrast Comparison: None Findings: No cardiomegaly. No mediastinal adenopathy or pericardial effusion. No atherosclerotic disease of the coronary arteries. No discrete thyroid lesion. Lungs demonstrate no suspicious lesion. Minimal airway thickening. No pleural effusion or pneumothorax. No acute osseous abnormality. The visualized upper abdomen demonstrates no acute process. Impression: No evidence of metastatic disease within the chest. Minimal airway thickening. This document has been electronically signed by: Dhiraj Rincon MD on 07/22/2024 10:14:01
[2024-07-21] MEDS: iohexoL 350 MG/ML 100 ML INFUS..BTL IV (10:23)
--- OUTSIDE RECORDS SUMMARY | 2024-07-21 10:24 | XMS_ITS | Data Portability ---
Author Organization [facility], [place] - [employer] Address [address] [place] [address] Care Team Providers Care Numerical Control Router Operator Name Role Phone HIM CCA OTHER ANMOL MARQUEZ Primary Care Provider Assessment Encounter Date Assessment Date Assessment LastModified by Organization Details LastModified Time 02/19/2024 02/19/2024 I have reviewed and agree with the Assessment and Plan as documented by the Community Education Specialist. I provided real-time medical direction via phone [...] Assessment and Plan as documented by the Community Education Specialist. The patient / given the opportunity to ask questions. Advised if develops CP/severe SOB/turning blue/AMS/ syncope/ hi fever to call 911- she verbalized understanding of instructions to the medic [email or web address] Not available 06/22/2024 13:10:23 07/12/2024 07/12/2024 I have reviewed and agree with the assessment and plan as documented by the power sewing machine operator. I provided real time medical direction for this encounter and was immediately available to provide additional phone based assistance as needed. History as noted by power sewing machine operator. Pt with history of hypertension, COPD/asthma, type 2 diabetes mellitus, dementia (Alzheimer's disease), osteoarthritis, and colon CA. 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 [facility] [place] and was diagnosed with a viral URI. He also reports being seen by his electronic assembler group leader last week and had labs and a Chest XR performed which were reportedly unremarkable. Pt reports that he is taking Mucinex, flonase, saline nasal spray, albuterol nebs and cetirizine but his symptoms have persisted. He denies any SOB, fevers, chills or CP. On exam, pt appears well, no distress. Vitals normal, lung exam unremarkable. Impression: Pt with 2 weeks of URI symptoms with cough. His symptoms are persisting despite taking multiple meds as noted. Chest XR last week reportedly normal. Discussed with pt that he appears to have had a viral URI and now bronchitis. He is also told that symptoms unfortunately can sometimes persist for 4-6 weeks or longer after viral URI. Pt may benefit from a 7 day course of an antibiotic for atypical organisms as well as benzonatate. I prescribe doxycycline 100mg bid x7 days as well as benzonatate tid prn. Pt is told that he may have a copay with the benzonatate at the pharmacy. Pt is instructed to f/u with his primary care team or electronic assembler group leader if his symptoms continue to persist despite meds and to seek medical attention right away in the ED with any worsening or new symptoms, which are reviewed with him. [email or web address] Not available 07/12/2024 09:29:52 Plan of Treatment Reminders Order Date Submit Date Provider Last Modified By Organization Details Last Modified Time Details Appointments None recorded. Lab rapid SARS CoV 2 Ag, QL IA, respiratory specimen 2023 024 DOMENICO Romano - [facility], [address] [place] [address], [id number], 12:14:29 rapid flu (A+B) 2023 024 DOMENICO [facility] - [facility], [address] [place] [address], [id number], 4 12:14:49 rapid SARS CoV 2 Ag, QL IA, respiratory specimen 2023 024 [email or web address] 0 Main - [facility], [address] [place] [address], [id number], 4 13:10:41 rapid flu (A+B) 2023 024 [email or web address] 0 Main - [facility], [address] [place] [address], [id number], 4 13:10:41 BMP, serum or plasma 2023 024 [email or web address] 0 Main - [facility], [address] [place] [address], [id number], 4 13:10:41 rapid SARS CoV 2 Ag, QL IA, respiratory specimen 2023 024 DOMENICO [facility] - [facility], [address] [place] [address], [id number], 4 19:02:16 rapid flu (A+B) 2023 024 DOMENICO [facility] - [facility], [address] [place] [address], [id number], 4 19:02:38 Referral None recorded. Procedures None recorded. Surgeries None recorded. Imaging None recorded. Medication Orders fluticasone propionate 50 mcg/actuati on nasal spray,suspe nsion 2023 024 [id number], [address] [place], [address], 4 10:22:30 doxycycline monohydrate 100 mg tablet 2024 025 [id number], [address] [place], [address], 5 09:20:59 benzonatate 200 mg capsule 2024 025 [id number], [address] [facility], [place], [address], 5 09:20:58 Patient TargetsNo targets recorded. Patient InstructionsNo instructions recorded. Reason for Referral None Reported. Results Created Date Observation Date Name Description Value Unit Range Abnormal Flag Note LastModifiedBy Organization Detail LastModifiedTime 06/22/20 24 06/22/2024 rapid flu (A+B) Flu negati ve Not Available [facility] [address] [place] [address], [id number], 06/22/2024 11:17:48 06/22/20 24 06/22/2024 rapid SARS CoV 2 Ag, QL IA, respi rator y speci men rapid SARS CoV 2 Ag, QL IA, respiratory specimen negati ve Not Available [facility] [address] [place] [address], [id number], 06/22/2024 11:17:47 06/22/20 24 06/22/2024 BMP, serum or plasm a Ca 1.33 Not Available [facility] - [facility] [address] [place] [address], [id number], 06/22/2024 11:18:25 Result Notes None recorded. Medical [...] Not Available Not Available No t Available benzonatate 200 mg capsule Take 1 capsule 3 times a day by oral route as needed for 10 days, for cough. 2024 active Not Available Not Available Not Avai lable donepezil 10 mg tablet TAKE 1 TABLET [...] Not Available Not Available No t Available doxycycline monohydrate 100 mg tablet Take 1 tablet twice a day by oral route for 7 days. 2024 active Not Available Not Available Not Avai lable famotidine 20 mg tablet TAKE 1 TABLET [...] [degF] 182.88 cm 98 % 98 % 25771.6 g 122 mm[Hg] 82 mm[Hg] Not Available [facility] 4 10:19:48 Date Recorded Respiratory rate Body height Oxygen saturation Oxygen saturation in Arterial blood by Pulse oximetry Body weight Heart rate Body temperature Systolic blood pressure Diastolic blood pressure Provider Name and Address Organization Details Last Updated DateTime 4 14 /min 180.34 cm 98 % 98 % 72478.2 56 g 60 /min 98.7 [degF] 144 mm[Hg] 88 mm[Hg] Not Available [employer] 4 10:50:18 Date Recorded Oxygen saturation Oxygen saturation in Arterial blood by Pulse oximetry Body temperature Heart rate Respiratory rate Systolic blood pressure Diastolic blood pressure Provider Name and Address Organization Details Last Updated DateTime 4 98 % 98 % 98.2 [degF] 76 /min 18 /min 144 mm[Hg] 82 mm[Hg] Not Available [employer] 4 12:56:22 Date Recorded Body temperature Respiratory rate Oxygen saturation Oxygen saturation in Arterial blood by Pulse oximetry Heart rate Systolic blood pressure Diastolic blood pressure Provider Name and Address Organization Details Last Updated DateTime 5 98.1 [degF] 16 /min 95 % 95 % 53 /min 126 mm[Hg] 82 mm[Hg] Not Available [employer] 5 09:13:44 Social History None recorded. Functional Status None recorded. Mental Status None recorded. Family History Nothing Reported. Medical History No medical history recorded. Past Encounters Encounter ID Performer Location Encounter Start Date Encounter Closed Date Diagnosis/Indication Diagnosis SNOMED-CT Code Diagnosis ICD10 Code Diagnosis Note [id number] Reyes Hanna MD Main - [address] [address] 02/19/2024 10:19:45 02/20/2024 12:55:18 Cough 34468437 R05.9 [id number] Sylvia Valentin MD Main - [address] [address] 06/22/2024 10:50:15 06/22/2024 13:52:43 Cough 73811414 R05.9 Advised to continue regular medicines and follow-up with PCP/BMP ordered as requested- results non-concer varun. Calcium is slightly elevated patient is not on any calcium supplement ation per his [id number] REJI RAMOS MD [facility] - [facility] [address] [place] [address] 07/03/2024 12:56:17 07/06/2024 20:29:08 Viral upper respiratory tract infection [id number] J06.9 Evaluation in the field was performed by my power sewing machine operator colleague, as noted above, I provided real-time direction and supervisio n for this visit. The evaluation revealed a 69-year-ol d male with a history of hypertensi on, asthma, type 2 diabetes mellitus, dementia (Alzheimer 's disease), osteoarthr itis, and cancer. The patient's requested a visit via portal, and the patient was identified by name and date of . 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 The patient presents with a cough that has been ongoing for some time, with white phlegm this morning. He denies chest congestion , fever, chills, headache, dizziness, chest pain, shortness of breath, nausea, vomiting, or diarrhea. His reports that he has a good appetite. He has a follow-up appointmen t with Pulmonolog y on Friday. Vital signs are stable. SpO2 is 98% on room air. Afebrile.L ungs: Very faint rhonchi at the bases.COVI D-19 and influenza tests are negative.A llergies reviewed. Impression :Upper respirator y tract infection, most likely viral. Plan:The was encouraged to continue supportive measures, including honey with tea, Vicks Vaporub, and Tylenol for symptom management .Continue chronic medication s as prescribed .Follow-up with the pulmonolog ist as scheduled in 2 days.Red flags were discussed with the . Primary care, consider__ _ Dispositio n: We discussed the diagnostic uncertaint y of home visits and the risk associated with this. In this case, the patient and I felt this to be an acceptable and reasonable amount of risk given the benefit of avoiding an ED visit. We discussed the need to seek care urgently/e mergently in the setting of any new or worsening serious symptoms, particular ly fever, chills, CP, shortness of breath, worsening mental status, inability to tolerate PO or any other concerns. [id number] Skip Tovar MD Main - [address] [address] 07/12/2024 09:13:40 07/12/2024 14:48:07 Acute bronchitis [id number] J20.9 Health Concerns Section Related Observation LastModified by Organization Detai ls LastModified Time None Recorded Concern Status LastModified by Organization Details LastModified Time None Recorded Advance Directives Directive None Recorded Payers Encounter Date Sequence Insurance Name Policy Number Policy Arrooy Covered Member ID Arroyo Member ID Guarantor Name 02/19/2024 1 [facility] - DOS ON OR AFTER 2022 - DUAL ELIGIBLE - CARE HOME OPTIONS AND ONE CARE (MEDICARE REPLACEMENT/ADV ANTAGE - HMO) [id number]/22/2024 1 [facility] - DOS ON OR AFTER 2022 - DUAL ELIGIBLE - CARE HOME OPTIONS AND ONE CARE (MEDICARE REPLACEMENT/ADV ANTAGE - HMO) Elijah Bearden [id number] [facility] 07/03/2024 1 [facility] - DOS ON OR AFTER 2022 - DUAL ELIGIBLE - CARE HOME OPTIONS AND ONE CARE (MEDICARE REPLACEMENT/ADV ANTAGE - HMO) Elijah Bearden [id number] Elijah Suleiman 07/12/2024 1 [facility] - DOS ON OR AFTER 2022 - DUAL ELIGIBLE - CARE HOME OPTIONS AND ONE CARE (MEDICARE REPLACEMENT/ADV ANTAGE - HMO) Elijah Bearden [id number] [facility] Notes Date Note Type Note Provider Name and Address Organization Details Recorded Time 02/19/2024 text/html [facility] Nurse Triage Notes (Jennifer Cota): Reason For Request: coughing during nighttime Chief Complaints: Cough PMH: Diabetes, Severe Dementia, Hypertension Allergies: No Known Comments: Gauger Delivery verified the member's name//address and phone number. [...] s/s and seek emergency treatment if needed Community Education Specialist Organization Information for Adam Duval Spootr Legal Name: [facility] Address: [address] [place] [address], KENDY Szymanski [address], Recycling Director: César Dominguez MD IA No.: [id number] Community Education Specialist POC Test Results from Adam Duval Rapid COVID antigen (10:16:04) COVID: - Rapid influenza antigen (10:16:05) Flu: - .................... .................... .................... .................... .................... .................... .................... . Community Education Specialist Note From Adam Duval: Patient seated in chair, caregiver reports patient [...] for Covid and flu via rapid POC. [facility] orders Flonase to patient local pharmacy. Care and plan discussed with caregiver, grateful for service and expect to call back in the future. Red flags, patient education discussed. Supportive care, including tea with honey, and use of the Flonase device discussed. .................... .................... .................... .................... .................... .................... .................... . Disposition: Fulfilled Reyes Hanna MD [address] [place] [address],[address], [place], [address], [facility] 02/19/2024 11:14:41 06/22/2024 text/html HPI: See if [...] was negative. She would like him evaluated. Community Education Specialist Organization Information for Ying Raya Legal Name: [employer]? ? Address: [address] [place] [address], Recycling Director: Mason Willis MD CLIA No.: [id number] Community Education Specialist POC Test Results from Ying Raya iSTAT [...] - Rapid influenza antigen (11:18:58) Flu: - .................... .................... .................... .................... .................... .................... .................... . Community Education Specialist Note From Ying Raya: [facility] makes pt contact after being admitted to the home by pt's . He is found seated on the sofa w/ his arm resting on the arm rest and his head resting on that fist. He is conscious and alert and greets [facility]. He doesn't speak much at baseline, but [...] She consents to evaluation today for the pt.[facility] obtains vital signs and pt is physically assessed. Nothing remarkable is noted upon physical exam. A 21ga butterfly is used to attempt IV cannulation for blood draw in R forearm and is unsuccessful. A second 21ga butterfly is used in the R forearm for blood draw and is successful. Chem 8+ is performed and results are uploaded. [facility] contacts [facility] to discuss the above findings. [facility] requests a rapid COVID and flu in preparation for the CT. Pt's iCal is noted to be high. Rapid COVID and flu are performed and found to be negative. thanks [facility] for coming.[facility] is clear. Report completed by MICHELLE Raya [id number]. [facility] Lab Orders: rapid SARS CoV 2 Ag, QL IA, respiratory specimen: Performed .................... .................... .................... .................... .................... .................... .................... . [facility] Consulted: Sylvia Valentin .................... .................... .................... .................... .................... .................... .................... . Disposition: Fulfilled Sylvia Valentin MD [address] [place] [address],[address] [facility], [place], [address], [facility] 06/22/2024 13:10:57 07/03/2024 text/html [facility] Nurse Triage [...] Dementia (e.g., Alzheimer's Disease), Osteoarthritis, Cancer Comments: Gauger Delivery verified the member's name//address and phone number. [...] s/s and seek emergency treatment if needed. Community Education Specialist Organization Information for Nick [employer] Legal Name: [employer]? ? Address: [address] [place] [address], Recycling Director: Mason Willis MD CLDEONNA No.: [id number] Community Education Specialist POC Test Results from Nick Oconnell Rapid COVID antigen (12:55:28) COVID: - Attachments uploaded as part of this test result can be found under Documents section. Rapid influenza antigen (12:55:30) Flu: - Attachments uploaded as part of this test result can be found under Documents section. .................... .................... .................... .................... .................... .................... .................... . Community Education Specialist Note From Nick Oconnell: Dispatched to above [...] reports he has an appointment with his electronic assembler group leader on Friday for this. [facility] contacted, spoke with Dr. Ramos, advised of patient complaints, exam findings and test results. [facility] believes likely URI, recommends continued home care and monitoring and use of home nebulizer tx q6hrs. Patient and advised of [facility] recommendations, home care and red flags. Patient and understand all recommendations. Patient and have no additional questions or concerns at this time. SC8 clear. EOR. .................... .................... .................... .................... .................... .................... .................... . [facility] Consulted: Reji Ramos .................... .................... .................... .................... .................... .................... .................... . Disposition: Nish RAMOS MD [address] [place] [address],[address], [place], [phone], [facility] 07/03/2024 21:39:58 07/12/2024 text/html This was a supervised home visit with power sewing machine operator Benny Meade. [facility] Nurse Triage Notes (Gilberto Gibbons - TARIK): Reason For Request: Pt's spouse Sylvia a severe cough>mbr was recently seen by [facility] in the last couple weeks> Patient Reports: Sputum increase ; CoughDenies: Increased work of breathing/labored ? with or without fever Unable to speak in full sentences without distress Discoloration of skin -cyanosis Needs to sleep sitting up, can? t catch breath Shortness of breath in setting of confusion Chief Complaints: CoughPMH: Hypertension, Asthma, Diabetes Mellitus Type 2, Dementia (e.g., Alzheimer's Disease), Osteoarthritis, CancerComments: 2000 pt wanted visit on 07/12 due to the time of the visit was too late Gauger Delivery verified the Pt.'s name//address and phone number. Education provided on the response time and the Pt. was advised to monitor reported s/s and seek emergency treatment if needed. CG reports the pt is feeling unwell with a cough/cold and congestion - Seen by [facility] on 07/03 - S/S are not improving - Seen by electronic assembler group leader with a negative chest x-ray -Taking over the counter cough medication with no relief - Follow up requested - [facility] notes: he evaluation revealed a 69-year-old male with a history of hypertension, asthma, type 2 diabetes mellitus, dementia (Alzheimer's disease), osteoarthritis, and cancer. The patient's requested a visit via portal, and the patient was identified by name and date of . In addition to his medical history, the patient had colon cancer about 4-5 years ago, now in remission, and a partial nephrectomy of his right kidney. The patient presents with a cough that has been ongoing for some time, with white phlegm this morning. He denies chest congestion, fever, chills, headache, dizziness, chest pain, shortness of breath, nausea, vomiting, or diarrhea. .................... .................... .................... .................... .................... .................... .................... . Community Education Specialist Note From Benny Meade: This visit is for a 69-year-old male with a history including but not limited to HTN, asthma, DM type II, Alzheimer's, OA, cancer. The patient's requested a visit to address a dry cough and rhinorrhea since 06/28/24. Why states she has been giving the patient cetirizine, Mucinex, fluticasone, saline nasal spray and albuterol nebulizer treatments every six hours. The white states the patient saw his electronic assembler group leader last week and had a negative chest x-ray and normal blood work. The denies the patient complaining of any chest pain, shortness of breath, dyspnea on exertion, fevers, nausea, vomiting, diarrhea. Confirmed no known medication allergies.The patient presents awake and alert, in no acute distress. His vital signs are stable and he is afebrile. Nonfocal neurological exam. No sinus tenderness. Normal oropharynx exam. Lungs are clear throughout auscultation. Abdomen is soft, nontender, nondistended. No lower extremity edema.I provided education on the patient's prescriptions. I recommend they continue the current medication regimen including the OTCs and to continue to stay well hydrated. I instructed the patient and his to present to the emergency department for any new or worsening severe symptoms such as chest pain, severe shortness of breath, high fever, altered mental status. The patient and his were given the opportunity to ask questions and are agreeable to this plan. .................... .................... .................... .................... .................... .................... .................... . [facility] Consulted: Skip Tovar .................... .................... .................... .................... .................... .................... .................... . Disposition: Fulfilled Skip Tovar MD [address] [place] [address],[address] [facility], [place], [address], BLOSSOM RIOS 07/12/2024 12:21:45
--- OUTSIDE RECORDS SUMMARY | 2024-07-21 10:24 | XMS_ITS | Continuity of Care Document ---
Author Organization [employer] [facility] [employer] Address [address] [place] [phone] Care Team Providers Care Marketing Reps [employer] Name Role Phone HIM CCA OTHER ANMOL MARQUEZ Primary Care Provider [phone] Assessment Encounter Date Assessment Date Assessment LastModified by Organization Details LastModified Time 07/12/2024 07/12/2024 I have reviewed and agree with the assessment and plan as documented by the pyrotechnist. I provided real time medical direction for this encounter and was immediately available to provide additional phone based assistance as needed. History as noted by pyrotechnist. Pt with history of hypertension, COPD/asthma, type 2 diabetes mellitus, dementia (Alzheimer's disease), osteoarthritis, and colon CA. 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 He was seen by [facility] on 07/03 and was diagnosed with a viral URI. He also reports being seen by his chicken catcher last week and had labs and a [...] f/u with his primary care team or chicken catcher if his symptoms continue to persist despite meds and to seek medical attention right away in the ED with any worsening or new symptoms, which are reviewed with him. [email or web address] Not available 07/12/2024 09:29:52 Plan of Treatment Reminders Order Date Submit Date Provider Last Modified By Organization Details Last Modified Time Details Appointments None recorded. Lab None recorded. Referral None recorded. Procedures None recorded. Surgeries None recorded. Imaging None recorded. Medication Orders doxycycline monohydrate 100 mg tablet 2024 025 [facility]acy #[id number], [address] [place], [address], 09:20:59 benzonatate 200 mg capsule 2024 025 [facility] #[id number], [address] [place], [address], 09:20:58 Patient TargetsNo targets recorded. Patient InstructionsNo instructions recorded. Reason for Referral None Reported. Medical Equipment None Reported. Allergies No known [...] Available N ot Available Vitals Date Recorded Body temperature Respiratory rate Oxygen saturation Oxygen saturation in Arterial blood by Pulse oximetry Heart rate Systolic blood pressure Diastolic blood pressure Provider Name and Address Organization Details Last Updated DateTime 5 98.1 [degF] 16 /min 95 % 95 % 53 /min 126 mm[Hg] 82 mm[Hg] Not Available [facility] - production 5 09:13:44 Social History None recorded. Functional Status None recorded. Mental Status None recorded. Family History Nothing Reported. Medical History No medical history recorded. Past Encounters Encounter ID Performer Location Encounter Start Date Encounter Closed Date Diagnosis/Indication Diagnosis SNOMED-CT Code Diagnosis ICD10 Code Diagnosis Note [id number] Sylvia Valentin MD Main - [facility] [address] [place] [phone] 06/22/2024 10:50:15 06/22/2024 13:52:43 Cough 63387587 R05.9 Advised to continue regular medicines and follow-up with PCP/BMP ordered as requested- results non-concer varun. Calcium is slightly elevated patient is not on any calcium supplement ation per his [id number] RENE RAMOS MD Main - [facility] [address] [place] [phone] 07/03/2024 12:56:17 07/06/2024 20:29:08 Viral upper respiratory tract infection 058816182 J06.9 Evaluation in the field was performed by my pyrotechnist colleague, as noted above, I provided real-time [...] to tolerate PO or any other concerns. [id number] Skip Tovar MD [facility] - [address] [address] 07/12/2024 09:13:40 07/12/2024 14:48:07 Acute bronchitis 16097207 J20.9 Health Concerns Section Related Observation LastModified by Organization Detai ls LastModified Time None Recorded Concern Status LastModified by Organization Details LastModified Time None Recorded Payers Encounter Date Sequence Insurance Name Policy Number Policy Arroyo Covered Member ID Arroyo Member ID Guarantor Name 07/12/2024 1 [facility] - DOS ON OR AFTER 2022 - DUAL ELIGIBLE - [facility] OPTIONS AND ONE CARE (MEDICARE REPLACEMENT/ADV ANTAGE - HMO) Elijah Bearden [id number] Elijah Bearden Notes Date Note Type Note Provider Name and Address Organization Details Recorded Time 07/12/2024 text/html This was a supervised home visit with pyrotechnist Benny Meade. [facility] Nurse Triage Notes (Gilberto Gibbons - TARIK): Reason For Request: Pt's spouse Sylvia a severe cough>mbr was recently seen by [facility] in the last couple weeks> Patient Reports: [...] time of the visit was too late Unemployment Insurance Hearing Officer verified the Pt.'s name//address and phone number. Education provided on the response time and the Pt. was advised to monitor reported s/s and seek emergency treatment if needed. CG reports the pt is feeling unwell with a cough/cold and congestion - Seen by [facility] on 07/03 - S/S are not improving - Seen by chicken catcher with a negative chest x-ray -Taking over the counter cough medication with no relief - Follow up requested - LiliaED notes: he evaluation revealed a 69-year-old male [...] shortness of breath, nausea, vomiting, or diarrhea. ................... ................... ................... ................... ................... ................... ................... ........ Program And Research Coordinator Note From Benny Meade: This visit is [...] The white states the patient saw his chicken catcher last week and had a negative chest [...] questions and are agreeable to this plan. ................... ................... ................... ................... ................... ................... ................... ........ [facility] Consulted: Skip Tovar ................... ................... ................... ................... ................... ................... ................... ........ Disposition: Nish Tovar MD [address] [facility],[address], [place], [address], BLOSSOM RIOS 07/12/2024 12:21:45
--- OUTSIDE RECORDS SUMMARY | 2024-07-21 10:25 | XMS_ITS | Continuity of Care Document ---
Author Organization [facility] [email or web address] [facility], [place] - [facility], [address] [place] [phone] Care Team Providers Care Eddy Current Inspector Name Role Phone HIM CCA OTHER ANMOL MARQUEZ Primary Care Provider [phone] Assessment No assessment recorded. Plan of Treatment Reminders Order Date Submit Date Provider Last Modified By Organization Details Last Modified Time Details Appointments None recorded. Lab rapid SARS CoV 2 Ag, QL IA, respiratory specimen 2023 024 [facility], [address] [place] [address], [phone], 19:02:16 rapid flu (A+B) 2023 024 [facility], [address] [place] [address], [phone], 19:02:38 Referral None recorded. Procedures None recorded. [...] SNOMED-CT Code Diagnosis ICD10 Code Diagnosis Note [id number] Sylvia Valentni MD Main - [facility] [address] [place] [phone] 06/22/2024 10:50:15 06/22/2024 13:52:43 Cough [id number] R05.9 Advised to continue regular medicines and follow-up with PCP/BMP ordered as requested- results non-concer varun. Calcium is slightly elevated patient is not on any calcium supplement ation per his [id number] REJI RAMOS MD Main - [facility] [address] [place] [address] 07/03/2024 12:56:17 07/06/2024 20:29:08 Viral upper respiratory tract infection [id number] J06.9 Evaluation in the field was performed by my air bag builder colleague, as noted above, I provided real-time [...] to tolerate PO or any other concerns. Health Concerns Section Related Observation LastModified by Organization Detai ls LastModified Time None Recorded Concern Status LastModified by Organization Details LastModified Time None Recorded Payers Encounter Date Sequence Insurance Name Policy Number Policy Arroyo Covered Member ID Arroyo Member ID Guarantor Name 07/03/2024 1 [facility] - DOS ON OR AFTER 2022 - DUAL ELIGIBLE - ASSISTED OPTIONS AND ONE CARE (MEDICARE REPLACEMENT/ADV ANTAGE - HMO) Elijah Bearden [id number] Elijah Bearden Notes Date Note Type Note Provider Name and Address Organization Details Recorded Time 07/03/2024 text/html [facility] Nurse Triage Notes (Ryann Maldonado - TARIK): Reason For Request: Cough Patient Reports: Cough, [...] Dementia (e.g., Alzheimer's Disease), Osteoarthritis, Cancer Comments: Meat Grinder verified the member's name//address and phone number. [...] s/s and seek emergency treatment if needed. Headstart Teacher Organization Information for Nick Oconnell Business Legal Name: [employer]? ? Address: [address] [place] [address], Statistical Engineer: Mason Willis MD IA No.: [id number] [employer] POC Test Results from Nick Oconnell Rapid COVID antigen (12:55:28) COVID: - Attachments uploaded as part of this test result can be found under Documents section. Rapid influenza antigen (12:55:30) Flu: - Attachments uploaded as part of this test result can be found under Documents section. ................... ................... ................... ................... ................... ................... ................... ........ [employer] Teacher Note From Nick Oconnell: Dispatched to above [...] reports he has an appointment with his traveling secretary on Friday for this. [facility] contacted, spoke with Dr. Ramos, advised of patient complaints, exam findings and test results. [facility] believes likely URI, recommends continued home care and monitoring and use of home nebulizer tx q6hrs. Patient and advised of [facility] recommendations, home care and red flags. Patient and understand all recommendations. Patient and have no additional questions or concerns at this time. SC8 clear. EOR. ................... ................... ................... ................... ................... ................... ................... ........ [facility] Consulted: Reji Ramos ................... ................... ................... ................... ................... ................... ................... ........ Disposition: Nish RAMOS MD [address] [facility],[address], [place], [address], [employer] 07/03/2024:39:58
--- OUTSIDE RECORDS SUMMARY | 2024-07-21 10:25 | XMS_ITS | Continuity of Care Document ---
Author Organization [employer] [facility] - [facility] Address [address] [place] [phone] Care Team Providers Care Cabinet Builder Name Role Phone HIM CCA OTHER ANMOL MARQUEZ Primary Care Provider Assessment Encounter Date Assessment Date Assessment LastModified by Organization Details LastModified Time 06/22/2024 06/22/2024 I provided real -time medical direction via phone for this encounter, and was available for additional phone based assistance as needed. I have reviewed and agree with the Assessment and Plan as documented by the Survey Supervisor. The patient / given the opportunity to ask questions. Advised if develops CP/severe SOB/turning blue/AMS/ syncope/ hi fever to call 911- she verbalized understanding of instructions to the medic [email or web address] Not available 06/22/2024 13:10:23 Plan of Treatment Reminders Order Date Submit Date Provider Last Modified By Organization Details Last Modified Time Details Appointments None recorded. Lab rapid SARS CoV 2 Ag, QL IA, respiratory specimen 2023 [email or web address] 0 [facility], [address] [place] [address], [phone], 4 13:10:41 rapid flu (A+B) 2023 024 [email or web address] 0 [facility], [address] [place] [address], [phone], 4 13:10:41 BMP, serum or plasma 2023 024 [email or web address] 0 [facility], [address] [place] [address], [phone], 4 13:10:41 Referral None recorded. Procedures None recorded. Surgeries None recorded. Imaging None recorded. Medication Orders None recorded. Patient TargetsNo targets recorded. Patient InstructionsNo instructions recorded. Reason for Referral None Reported. Results Created Date Observation Date Name Description Value Unit Range Abnormal Flag Note LastModifiedBy Organization Detail LastModifiedTime 06/22/20 24 06/22/2024 rapid flu (A+B) Flu negati ve Not Available Main - [facility] [address] [place] [address], [phone], 06/22/2024 11:17:48 06/22/20 24 06/22/2024 rapid SARS CoV 2 Ag, QL IA, respi rator y speci men rapid SARS CoV 2 Ag, QL IA, respiratory specimen negati ve Not Available Main - [facility] [address] [place] [address], [phone], 06/22/2024 11:17:47 06/22/20 24 06/22/2024 BMP, serum or plasm a Ca 1.33 Not Available Main - [facility] [address] [place] [address], [phone], 06/22/2024 11:18:25 Result Notes None recorded. Medical [...] /min 180.34 cm 98 % 98 % 06885.2 56 g 60 /min 98.7 [degF] 144 mm[Hg] 88 mm[Hg] Not Available [facility] - production 10:50:18 Social History None recorded. Functional Status None recorded. Mental Status None recorded. Family History Nothing Reported. Medical History No medical history recorded. Past Encounters Encounter ID Performer Location Encounter Start Date Encounter Closed Date Diagnosis/Indication Diagnosis SNOMED-CT Code Diagnosis ICD10 Code Diagnosis Note [id number] Sylvia Valentin MD Main - [facility] [address] [place] [address] 06/22/2024 10:50:15 06/22/2024 13:52:43 Cough 86312530 R05.9 Advised to continue regular medicines and follow-up with PCP/BMP ordered as requested- results non-concer varun. Calcium is slightly elevated patient is not on any calcium supplement ation per his Health Concerns Section Related Observation LastModified by Organization Detai ls LastModified Time None Recorded Concern Status LastModified by Organization Details LastModified Time None Recorded Payers Encounter Date Sequence Insurance Name Policy Number Policy Arroyo Covered Member ID Arroyo Member ID Guarantor Name 06/22/2024 1 [facility] - DOS ON OR AFTER 2022 - DUAL ELIGIBLE - [employer] OPTIONS AND ONE CARE (MEDICARE REPLACEMENT/ADV ANTAGE - HMO) Elijah Bearden [id number] Elijah Bearden Notes Date Note Type Note [...] was negative. She would like him evaluated. Survey Supervisor Organization Information for Ying Raya DEYADanyellebrittany Legal Name: [employer]? ? Address: [address] [place] [address], Hydraulic Bull Riveter Operator: Mason Willis MD CLIA No.: [id number] Survey Supervisor POC Test Results from Ying RayaYUSRA Chem8+ (11:02:31) Na: 141 mEq/L K: 3.9 [...] in addition to above. Rapid COVID antigen (:18:55) COVID: - Rapid influenza antigen (::58) Flu: - .................. .................. .................. .................. .................. .................. .................. ............... Survey Supervisor Note From Ying Raya: [facility] makes pt contact after being admitted to the home by pt's . He is found seated on the sofa w/ his arm resting on the arm rest and his head resting on that fist. He is conscious and alert and greets [facility]. He doesn't speak much at baseline, [...] She consents to evaluation today for the pt.[facility] obtains vital signs and pt is physically assessed. Nothing remarkable is noted upon physical exam. A 21ga butterfly is used to attempt IV cannulation for blood draw in R forearm and is unsuccessful. A second 21ga butterfly is used in the R forearm for blood draw and is successful. Chem 8+ is performed and results are uploaded. [facility] contacts [facility] to discuss the above findings. [facility] requests a rapid COVID and flu in preparation for the CT. Pt's iCal is noted to be high. Rapid COVID and flu are performed and found to be negative. thanks [facility] for coming.[facility] is clear. Report completed by MICHELLE Raya [id number]. [facility] Lab Orders: rapid SARS CoV 2 Ag, QL IA, respiratory specimen: Performed .................. .................. .................. .................. .................. .................. .................. ............... [facility] Consulted: Sylvia Valentin .................. .................. .................. .................. .................. .................. .................. ............... Disposition: Fulfilled Sylvia Valentin MD [address] [facility],[address], [place], [address], [employer] 06/22/2024 13:10:57
== END 2024-07-21 09:39 | disposition home or self-care (01) ==
LOC: HO.CT 09:38
PROVIDERS: PCP Internal Medicine; Visit Provider Internal Medicine
DX: Z85.068 Personal history of other malignant neoplasm of small intestine (principal)
CPT/HCPCS: 71260; 74177; Q9967

== ENCOUNTER → 2024-07-21 09:40 | Outpatient (BNV) | payer OTHER, SELFPAY | PROVIDERS: PCP Internal Medicine; Visit Provider Radiology Vascular & Interventional Radiology | DX: Z85.038 Personal history of other malignant neoplasm of large intestine (principal) | CPT/HCPCS: 71260; 74177 ==

== ENCOUNTER 2024-10-13 13:56 | Outpatient (REF) | payer OTHER, SELFPAY ==
--- NOTE | ~2024-10-13 | FL_ITS ---
EXAMINATION: Modified Barium Swallow CLINICAL INFORMATION: Dysphagia. COMPARISON: None. TECHNIQUE: Modified barium swallow was performed under lateral fluoroscopy with patient in standing position. Barium mixed with solids and liquids of different consistencies was administered by the speech pathologist. Examination was recorded in the fluoroscopy suite. FINDINGS: Images demonstrated persistent premature spillover and pooling in the vallecula and piriform sinuses with liquids. There was persistent laryngeal penetration with liquids, which was transient. There was no glottic or subglottic aspiration. FLUOROSCOPY TIME: 1 minutes, 23 seconds Number of Spot Images: N/A DOSE AREA PRODUCT: 86.3 dGy-m2 FL/FL Modified Barium Swallow IMPRESSION: Persistent transient laryngeal penetration with liquids, without glottic or subglottic aspiration. Refer to the speech therapy report to follow for further details. Electronically signed by: Gary Benitez MD 10/13/2024 03:06 PM EDT
--- OUTSIDE RECORDS SUMMARY | 2024-10-13 16:11 | XMS_ITS | Patient Health Record ---
Author Organization [facility] Address [address] [place] [address] Care Team Providers Care Waste Water Worker Name Role Phone Chung GONZALES, [place] Primary Care Provider Rodolfo Tran Unavailable [phone] Allergies No Known Allergies Results Component Value Reference Range Notes HEMOGLOBIN A1C (GLYCOHEMOGLO BIN) Reviewed date:06/24/2024 01:49:22 PM Interpretation: Performing Lab: Notes/Report: TOTAL HEMOGLOBIN (HGBA1C) 7.1 HEMOGLOBIN A1C (GLYCOHEMOGLO BIN) Reviewed date:09/29/2024 03:43:06 PM Interpretation: Performing Lab: Notes/Report: HEMOGLOBIN A1C % (HH) 7.1 HEMOGLOBIN A1C (GLYCOHEMOGLO BIN) Reviewed date:01/07/2024 01:05:41 PM Interpretation: Performing Lab: Notes/Report: HEMOGLOBIN A1C % (HH) 7.2 Reason For Referral No Information Medications Medication SIG (Take, Route, Frequency, Duration) Notes Start Date End Date Status Carbidopa-Levodopa 25-100 MG PLEASE SEE ATTACHED FOR DETAILED DIRECTIONS Oral for 90 Days Active Extra Depth Orthopedic Shoes, (1) Pair With (3) Pair Custom Heat Molded Multidensity Innersoles Dx: NIDDM/PVD(E11.51), Hammertoe Foot Deformity(M20.41,M20. 42), Preulcerative Skin Lesion(s)(L85.1) Wear Daily for 365 days 01/07/2024 Active Vitamin D3 250 MCG (91055 UT) as directed Orally Active hydroCHLOROthiazide 12.5 MG 1 capsule in the morning Orally Once a day Active Donepezil HCl Active MiraLax 17 GM/SCOOP 1 scoop mixed with 8 ounces of fluid Orally Once a day Not-Taking Famotidine 20 MG 1 tablet at bedtime as needed Orally Once a day Not-Taking Sertraline HCl 25 MG 1 tablet Orally Onc e a day Not-Taking clonazePAM Not-Takin g Memantine HCl Active Losartan Potassium 100 MG 1 tablet Orall y Once a day Active metFORMIN HCl 1000 MG 1 tablet with a me al Orally Once a day Active Social History Tobacco Use: Social History Observation Description Date Details (start date - stop date) Never Smoker NA - NA Tobacco use other than smoking: Question Answer Notes Are you an other tobacco user? No Tobacco Control (Standard) Question Answer Notes Tobacco use: Nonsmoker Additional Findings: Tobacco non-user Current no nsmoker AUDIT-C (Standard) Question Answer Notes Did you have a drink containing alcohol in the p ast year? No Points 0 Interpretation Negative Problems Problem Type SNOMED Code ICD Code Onset Dates Problem Status W/U Status Risk Notes Problem Acquired hammer toe of right foot (4340095029718 105) Other hammer toe(s) (acquired), right foot (M20.41) Active confirmed Response to treatment,I mprovement Problem Acquired hammer toe of left foot (5911988835092 103) Other hammer toe(s) (acquired), left foot (M20.42) Active confirmed Response to treatment,I mprovement Problem Type 2 diabetes mellitus with peripheral angiopathy (407158867) Type 2 diabetes mellitus with diabetic peripheral angiopathy without gangrene (E11.51) Active confirmed Q7(A), Q8(2B), Q9(1B,2C) Vital Signs Blood pressure diastolic 86 mm Hg 09/29/2024 Height 5ft 11in in 09/29/2024 Blood pressure systolic 132 mm Hg 09/29/2024 Weight 192 lbs 09/29/2024 BMI 26.78 kg/m2 09/29/2024 Procedures Procedure Date Ordered Date Performed Result Body Sit e 12411-MOKEXNF NAIL, 1-5 01/07/2024 N/A 53959-MUOI SKIN LESIONS, 2 TO 4 01/07/2024 N/A S9724-MUOWAONK DYSTROPHIC NAILS ANY # 01/07/2024 N/A 85568-FXXSJJY NAIL, 1-5 03/18/2024 N/A 25239-IYCT SKIN LESIONS, 2 TO 4 03/18/2024 N/A Y1489-IGJMADQE DYSTROPHIC NAILS ANY # 03/18/2024 N/A 52418-FSIEFTM NAIL, 1-5 06/24/2024 N/A 75416-MKTL SKIN LESIONS, 2 TO 4 06/24/2024 N/A M0247-TFFGVIFZ DYSTROPHIC NAILS ANY # 06/24/2024 N/A 73032-KVSOTQR NAIL, 1-5 09/29/2024 N/A 39629-IPFF SKIN LESIONS, 2 TO 4 09/29/2024 N/A Z7067-SSZECJOS DYSTROPHIC NAILS ANY # 09/29/2024 N/A Encounters Encounter Location Date Provider Diagnosis [address] [address] 01/07/2024 Rodolfo Kaplan Type 2 diabetes mellitus with diabetic peripheral angiopathy without gangrene E11.51 ; Tinea unguium B35.1 ; Pain in right toe(s) M79.674 ; Pain in left toe(s) M79.675 ; Other hammer toe(s) (acquired), right foot M20.41 and Other hammer toe(s) (acquired), left foot M20.[address] [address] 03/18/2024 Rodolfo Kaplan Type 2 diabetes mellitus with diabetic peripheral angiopathy without gangrene E11.51 ; Tinea unguium B35.1 ; Pain in right toe(s) M79.674 and Pain in left toe(s) M79.[address] [address] 06/24/2024 Rodolfo Kaplan Type 2 diabetes mellitus with diabetic peripheral angiopathy without gangrene E11.51 ; Tinea unguium B35.1 ; Pain in right toe(s) M79.674 ; Pain in left toe(s) M79.675 ; Other hammer toe(s) (acquired), right foot M20.41 and Other hammer toe(s) (acquired), left foot M20.[address] [address] 09/29/2024 Rodolfo Kaplan Type 2 diabetes mellitus with diabetic peripheral angiopathy without gangrene E11.51 ; Tinea unguium B35.1 ; Pain in right toe(s) M79.674 and Pain in left toe(s) M79.675 [facility] [place] [address] [address] 06/14/2024 Rodolfo Eusebio Assessments Encounter Date Diagnosis (ICD Code) Assessment [...] peripheral angiopathy without gangrene (ICD-10 - E11.51) 09/29/2024 Tinea unguium (ICD-10 - B35.1) 09/29/2024 Type 2 diabetes mellitus with diabetic peripheral angiopathy without gangrene (ICD-10 - E11.51) Q7(A), Q8(2B), Q9(1B,2C) 06/24/2024 Pain in right toe(s) (ICD-10 - M79.674) 09/29/2024 Pain in right toe(s) (ICD-10 - M79.674) 01/07/2024 Pain in right toe(s) (ICD-10 - M79.674) 03/18/2024 Pain in right toe(s) (ICD-10 - M79.674) 03/18/2024 Pain in left toe(s) (ICD-10 - M79.675) 01/07/2024 Pain in left toe(s) (ICD-10 - M79.675) 09/29/2024 Pain in left toe(s) (ICD-10 - M79.675) [...] Treatment Pending Test Test Name Order Date 85706-XQBTPIF NAIL, 1-5 01/07/2024 42381-MFMFTGZ NAIL, 1-5 03/18/2024 65510-DOZUEYE NAIL, 1-5 06/24/2024 47415-ZDGKJED NAIL, 1-5 09/29/2024 94193-NAXO SKIN LESIONS, 2 TO 4 09/30/19 25 67630-UCTH SKIN LESIONS, 2 TO 4 06/24/20 24 41046-WBRJ SKIN LESIONS, 2 TO 4 01/07/20 24 26919-EOPI SKIN LESIONS, 2 TO 4 03/18/20 24 U1681-MBNUHTPG DYSTROPHIC NAILS ANY # T8066-KGLXUDPW DYSTROPHIC NAILS ANY # P0640-WXRVFISY DYSTROPHIC NAILS ANY # E8718-EKICFKEQ DYSTROPHIC NAILS ANY # Next Appt Details Provider Name:Rodolfo Kang Kaplan , 12/23/2024 02:45:00 PM, [address], [address], [place], [address], Insurance Providers Payer Name Payer Address Payer Phone Subscriber Number Group Number Insured Name Patient Relationship to Insured Coverage Start Date Coverage End Date [facility] [employer] Claims [address] [place] [phone] [facility] [id number] Suleiman, Elijah Self - patient is the insured Medical [...]
--- OUTSIDE RECORDS SUMMARY | 2024-10-13 16:11 | XMS_ITS | Clinical Summary ---
Author Organization [facility] Address [address] [place] [address] Care Team Providers Care Ground Layer Name Role Phone ChungYuri Primary Care Provider [phone] Allergies Active Allergy Reactions Criticality Noted Date Comments Crab Hives 03/31/2013 Medications Freestyle Lite test strips TEST BLOOD SUGAR TWICE DAILY 11 8 Active TRUEPLUS LANCETS lancet 28 gauge TEST BLOOD SUGAR TWICE DAILY 11 8 Active metFORMIN (GLUCOPHAGE) 1,000 mg tablet Take 1,000 mg by mouth daily with food. 5 9 Active fluticasone (FLONASE) 50 mcg/actuation nasal spray Administer 1 spray into each nostril daily as needed for rhinitis. Active ferrous sulfate 325 mg (65 mg iron) tablet Take 325 mg by mouth 2 times a day with meals. Active losartan (COZAAR) 100 mg tablet Take 100 mg by mouth once a day. Active cholecalciferol , vitamin D3, 5,000 unit tablet Take 5,000 Units by mouth once a day. Active hydroCHLOROthia zide (MICROZIDE) 12.5 mg capsule Take 12.5 mg by mouth daily as needed (BP >140/85). Active LORazepam (ATIVAN) 0.5 mg tablet Take 0.5 mg by mouth every 6 hours as needed. 1 Active psyllium (Fiber, psyllium husk,) 0.52 gram capsule Take 0.52 g by mouth once a day. Every other day Active acetaminophen (TYLENOL) 325 mg tablet Take 2 tablets (650 mg total) by mouth every 6 hours. 1 Active docusate sodium (COLACE) 100 mg capsule Take 1 capsule (100 mg total) by mouth 2 times a day. Active oxyCODONE IR (ROXICODONE) 5 mg tablet Take 1/2 tablet (2.5 mg total) by mouth every 4 hours as needed for breakthrough pain. Max Daily Amount: 15 mg 8 tablet 12/29/2020 3:00 PM EDT 1 Active Additional Information Patient not taking.Reported on 2021 senna (SENOKOT) 8.6 mg tablet Take 2 tablets (17.2 mg total) by mouth nightly. 1 Active Additional Information Patient not taking.Reported on 2021 Active Problems Problem Noted Date Diagnosed Date Renal cell cancer 01/14/2021 Sebaceous cyst 08/17/2018 Assessment & Plan (08/17/2018 10:52 AM EST): Elijah has a small 1 cm hard sebaceous cyst on his right inner buttock with a clear blackhead in the center. It is never opened and drained, it is never been infected. He has never required antibiotics. At this time we would just watch and wait. He can use warm compresses to the area and try to squeeze the blackhead if he has any enlarging in size of it. If it becomes acutely infected and he needs to have incised and drained he could certainly go to his primary care he is welcome to call our office for further management. But at this time there is no need for surgical management. I have explained the skin condition to him and his and they both state clear understanding. All of his questions were answered today. Thank you for allowing us to participate in his care. Resolved Problems Problem Noted Date Diagnosed Date Resolved Date Renal mass 04/18/2020 01/14/2021 Encounters Date Type Department Care Team Description 08/09/2024 Telephone [facility] [address] [place] [phone] Youth Accommodation Support Worker: Rachele Patino NP 07/28/2024 Telephone [facility] [address] [place] [address] [place] [address] Youth Accommodation Support Worker: Preethi Greene Telephone Intake, Staff PAC Patient Request Call Back from Last 3 Months Immunizations Immunization Administration Dates Next Due Covid-19 Monovalent Vaccine, Moderna, mRNA, PF 0 11/06/2020,10/07/2020 Influenza, Trivalent, MDV, Injectable 03/31/2013 Tetanus Toxoid, Reduced Diph theria Toxoid, and Acellular Pertussis Vaccine, Adsorbed 05/26/2013 Family History Medical History Relation Name Comments Diabetes Brother Diabetes Father Atrial fibrillation Mother Diabetes Mother Hyperlipidemia Mother Hypertension Mother Kidney disease Mother Relation Name Status Comments Brother Alive Father Mother Alive Social History Tobacco Use Types Packs/Day Years Used Date Smoking Tobacco: Former Cigars Q uit: 12/27/2000 Smokeless Tobacco: Never Tobacco Cessation:Counseling Given: No Comments:quit 20 years ago Alcohol Use Standard Drinks/Week Comments Not Currently 0 (1 standard drink = 0.6 oz pur e alcohol) Sex and Gender Information Value Date Recorded Sex Assigned at Male 07/31/2023 5:28 PM EST Legal Sex Male 5:57 PM EDT Gender Identity Male 07/31/2023 5:28 PM EST Sexual Orientation Choose not to disclose 2023 5:28 PM EST Last Filed Vital Signs Vital Sign Reading Time Taken Comments Blood Pressure 122/81 12/13/2021 1:08 PM EDT Pulse 97 12/13/2021 1:08 PM EDT Temperature 36.6 ??C (97.8 ??F) 12/29/2020 11:33 AM E DT Respiratory Rate 20 12/29/2020 11:33 AM EDT Oxygen Saturation 96% 12/29/2020 11:33 AM EDT Inhaled Oxygen Concentration - - Weight 78.9 kg (174 lb) 12/27/2020 6:08 AM EDT Height 175.3 cm (5' 9 ) 12/27/2020 6:08 AM EDT Body Mass Index 25.7 12/27/2020 6:08 AM EDT Plan of Treatment Health Maintenance Due Date Last Done Comments Hepatitis C Screening 1955 Colonoscopy 06/21/2014 06/21/2009 COVID-19 Vaccine ( season) 2024 07/04/2021, 11/06/2020, 10/07/2020 Alcohol/Substance Use Screening 07/07/2024 Depression Screening and Follow-Up 07/07/2024 Health Care Proxy Review 07/07/2024 Social QD Vision of Health Annual Screening 07/07/2024 RSV Vaccine (60+ years old and patients) (1 - 1-dose 75+ series) 2032 DTaP,Tdap,and Td Vaccines (3 - Td or Tdap) 02/02/2034 02/03/2024, 05/26/2013, 02/15/2009 Zoster Vaccines Completed 02/03/2024, 10/2022, 04/27/2018 Influenza Vaccine Completed 04/13/2024, , 04/25/2022, Additional history exists Pneumococcal Vaccine: 50+ Years Completed 04/13/2024, 03/24/2023, 07/10/2022, Additional history exists CT Lung Cancer Screening (12 months, previous LungRADS 1 or 2) Discontinued 07/21/2024, 12/15/2020 Hepatitis B Vaccines Aged Out No long er eligible based on patient's age to complete this topic Procedures * Due to [place] [employer] [place] law, this organization might not be sharing negative HIV tests. Procedure Name Priority Date/Time Associated Diagnosis Comments AMB EXTERNAL CT CHEST, OUTSIDE RESULT 07/21/[address] ABDOMEN, OUTSIDE RESULT 07/21/2024 COLONOSCOPY 06/21/2009 1:45 PM EST from Last 3 Months or Most Recently Relevant to Health Maintenance Results * Due to [place] [employer] [employer] ([employer] law, this organization might not be sharing negative HIV tests. * CT Chest, Outside Result (07/21/2024) Anatomical Region Laterality Modality Other 07/21/2024 us Onbase Scan [facility] EXTERNAL RESULT PROCEDURE S Final Result * CT Abdomen, Outside Result (07/21/2024) Anatomical Region Laterality Modality Other 07/21/2024 us Onbase Scan [facility] EXTERNAL RESULT PROCEDURE S Final Result * COLONOSCOPY (06/21/2009 1:45 PM EST) Narrative Procedure Note Lukas Moody MD - 06/21/2009 1:45 PM EST Patient Name: Elijah Bearden Procedure Date: 06/21/2009 1:45 PM Date of : 1955 Admit Type: Outpatient Age: 54 Room: Room 3 Gender: Male Note Status: Finalized Attending MD: Lukas Moody MD Procedure: Colonoscopy Indications: Average risk screening for malignant neoplasm in the colon Comorbidities Providers: Lukas Moody MD Referring MD: Adria Weeks MD Requesting Provider: Medicines: Midazolam 5 mg IV, Fentanyl 100 micrograms IV Complications: No immediate complications and no estimated bloodloss Estimated Blood Loss: Procedure: After I obtained informed consent, the scope was passed under direct vision. Throughout the procedure, the patient's blood pressure, pulse, and oxygen saturations were monitored continuously. The Colonoscope was introduced through the anus and advanced to the cecum, identified by appendiceal orifice & IC valve. The colonoscopy was performed without difficulty. Thepatient tolerated the procedure well. Retroflexion wasperformed. The quality of the prep was good. Findings: A sessile polyp was found in the ascending colon. The polyp was 7 mmin size. The polyp was removed with a hot snare. Resection and retrieval were complete. Estimated blood loss was minimal. A few small-mouthed diverticula were found in the transverse colonand in the ascending colon. Impression: - A 7 mm polyp in the ascending colon. Resected and retrieved. - Diverticulosis transverse colon and ascendingcolon. Recommendation: - If the pathology report reveals adenomatous tissue,then repeat the colonoscopy for surveillance in 5 years. - Discontinue NSAIDS for 1 week. Lukas Moody MD 06/21/2009 5:45:23 PM This report has been signed electronically. Number of Addenda: 0 Note Initiated On: 06/21/2009 1:46 PM Lukas Moody MD PROVATION PROCEDURES Final Result from Last 3 Months or Most Recently Relevant to Health Maintenance Insurance HSNO/FREE CARE [facility] Advance Directives Documents on File Type Date Recorded Patient Incident Handler Expl anation Health Care Proxy 12/13/2020 10:22 AM * Full Code (Latest Code Status on File) Date Activated Date Inactivated Comments 12/27/2020 6:01 AM 12/29/2020 4:55 PM Healthcare Agents on File Name Relationship Healthcare Agent Relationshi p Communication Sylvia Bearden Spouse Health Care Agent Elijah Bearden Son Alternate Health Care Agent Care Teams Ground Layer Relationship Specialty Start Date End Date Yuri Wilkes [address] [place] [address] [place] [address] PCP - General Internal Medicine 12/13/20
--- OUTSIDE RECORDS SUMMARY | 2024-10-13 16:11 | XMS_ITS ---
Author Organization [facility] Address [address] [place] [address] Care Team Providers Care Exhaust Tender Name Role Phone Chung GONZALES, Yuri Primary Care Provider UnaRodolfo Jenkisn Unavailable [phone] Encounters Encounter Location Date Provider Diagnosis [address] [address] 06/14/2024 Rodolfo Kaplan Plan Of Treatment Next Appt Details Provider Name:Rodolfo Kaplan , 12/23/2024 02:45:00 PM, [address] [place] [address], [place], [address], Progress Notes * Elijah BEARDENDOB:1955 ( 69 yo M)Acc No.[id number]:06/14/2024 Progress Note Patient:?Elijah BEARDEN Provider:?Rodolfo Kaplan DPM :1955???Age:69 Y???Sex:Male Francis e:06/14/2024 Address:[address] [place] Pcp:Yuri Wilkes MD Subjective: * Chief Complaints: [...] Kaplan DPM Date:?2023 Generated for Shanon bedoya/Stephanie/Leonor on:?10/13/2024 04:11 PM EDT
--- OUTSIDE RECORDS SUMMARY | 2024-10-13 16:11 | XMS_ITS | Referral Summary ---
Author Organization [facility] Address [address] [place] [address] Care Team Providers Care Senior Billing Consultant Name Role Phone Yuri Wilkes Primary Care Provider [phone] Encounters Date Type Department Care Team Description 08/09/2024 Telephone [facility] [address] [place] [address] Milled Lumber Grader: Rachele Patino, HEAD OF IT 07/28/2024 Telephone [facility] [address] [place] [address] Milled Lumber Grader: Preethi Greene Telephone Intake, Staff PAC Patient Request Call Back from Last 3 Months Allergies Active Allergy Reactions Criticality Noted Date [...] total) by mouth 2 times a day. 1 Active oxyCODONE IR (ROXICODONE) 5 mg tablet [...] Date Resolved Date Renal mass 04/18/2020 01/14/2021 Immunizations Immunization Administration Dates Next Due Covid-19 Monovalent Vaccine, Moderna, mRNA, PF 0 11/06/2020,10/07/2020 Influenza, Trivalent, MDV, Injectable 03/31/2013 Tetanus Toxoid, Reduced Diph theria Toxoid, and Acellular Pertussis Vaccine, Adsorbed 05/26/2013 Social History Tobacco Use Types Packs/Day Years [...] 12/27/2020 6:08 AM EDT Plan of Treatment Not on file Procedures * Due to [place] state law, this organization might not be sharing negative HIV tests. Procedure Name Priority Date/Time Associated Diagnosis Comments AMB EXTERNAL CT CHEST, OUTSIDE RESULT 07/21/[address] ABDOMEN, OUTSIDE RESULT 07/21/2024 COLONOSCOPY 06/21/2009 1:45 PM EST from Last 3 Months or Most Recently Relevant to Health Maintenance Results * Due to [place] state law, this organization might not be sharing negative HIV tests. 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
--- OUTSIDE RECORDS SUMMARY | 2024-10-13 16:12 | XMS_ITS ---
Author Organization [facility] Address [address] [facility] [place] [address] Care Team Providers Care Mill Feeder Name Role Phone Chung GONZALES, [place] Primary Care Provider Rodolfo Tran Unavailable [phone] Allergies No Known Allergies REASON FOR VISIT [...] a day Active Vitamin D3 250 MCG (04081 UT) as directed Orally Active Extra Depth [...] Ordered Date Performed Result Body Sit e 07590-DTXOIIE NAIL, 1-5 06/24/2024 N/A 49119-DIFM SKIN LESIONS, 2 TO 4 06/24/2024 N/A H7543-TXGQSGZL DYSTROPHIC NAILS ANY # 06/24/2024 N/A Encounters Encounter Location Date Provider Diagnosis [facility] [address] [address] 06/24/2024 Rodolfo Kaplan Type 2 diabetes mellitus [...] Treatment Pending Test Test Name Order Date 44105-KLXYWVV NAIL, 1-5 06/24/2024 63885-XXQX SKIN LESIONS, 2 TO 4 06/24/20 24 X2740-XXIJDOZL DYSTROPHIC NAILS ANY # Next Appt Details Follow Up: 2 Months, Reason: Provider Name:Rodolfo Kaplan , 12/23/2024 02:45:00 PM, [address], [address], [place], [address], Procedure Notes * Category Sub-Category Detail Notes [...] instrumentation by the physician of record - 59283, Q8 Debride Nails 1-5 Procedure: Due to [...] necessary to maintain effective symptomatic relief - 19341 Nail Reduction Nail Reduction (-27) Trimming o [...] healthy nail plate or bed tissue - G0127, Q8 Progress Notes * Domenic BEARDENjostinDOB:1955 ( 69 yo M)Acc No.[id number]:06/24/2024 Progress Note Patient:?Domenic BEARDENito Provider:?Rodolfo Kaplan DPM :1955???Age:69 Y???Sex:Male Francis e:06/24/2024 Address:[address] [place], [place] [address] Pcp:Yuri Wilkes MD Subjective: * Chief Complaints: [...] Once a day Vitamin D3 250 MCG (44540 UT) Tablet as directed Orally Extra Depth [...] a day Taking Vitamin D3 250 MCG (86162 UT) Tablet as directed Orally Taking Extra [...] reviewed and reconciled with the patient * Allergies:?N.K.D.A.yes[Aaron roblero Verified] Objective: * Vitals:?Ht: 5ft 8in, Wt:196, [...] to treatment,Improvement??? Plan: * Treatment: 2.?Tinea unguium?Procedure: 24920-ZJOZFTS NAIL, 1-5 * Procedures:?Debride Nails 1-5:?Procedure:?Due to [...] necessary to maintain effective symptomatic relief - 41274.?Keratoma Treatment:?Parring or Cutting of Benign Hyperkeratotic Lesion(s)?(-56) [...] instrumentation by the physician of record - 26481, Q8.?Nail Reduction:?Nail Reduction?(-27) Trimming of all dystrophic [...] healthy nail plate or bed tissue - G0127, Q8.? * Procedure Codes:?G0127 MATTHEW ING DYSTROPHIC NAILS ANY #, Modifiers: XS , [id number] DEBRIDE NAIL, 1-5, Modifiers: XS 81497 TRIM SKIN LESIONS, 2 TO 4, Modifiers: [...] Provider:?Rodolfo Kaplan DPM Date:?2023 Generated for Shanon bedoya/Stephanie/eTransmitting on:?10/13/2024 04:11 PM EDT History and Physical Notes * HPI (History of Present Illness) Category Sub-Category Detail Notes Category Not es Toe pain Treatments: Rx shoes At Risk footcare Pt States Last PCP Visit: Date: 4 Examination Category Sub-Category Detail Notes Category Not es Dermatologic SKIN FINDINGS: Skin exam reveal s Keratotic lesion(s) located at , Plantar, Heel(s) , B/L Orthopedic FOOTWEAR EVALUATION: good condit ion, exhibit proper fit and accommodation for pedal [...]
--- OUTSIDE RECORDS SUMMARY | 2024-10-13 16:12 | XMS_ITS | Data Portability ---
Author Organization [employer], [place] [employer] - [employer] Address [address] [place] [address] Care Team Providers Care Sock Boarder Name Role Phone HIM CCA OTHER ANMOL MARQUEZ Primary Care Provider [phone] Assessment Encounter Date Assessment Date Assessment LastModified by Organization Details LastModified Time 02/19/2024 02/19/2024 I have reviewed and agree with the Assessment and Plan as documented by the Webbing Se[employer]. I provided real-time medical direction via phone [...] Assessment and Plan as documented by the We[employer]. The patient / given the opportunity to ask questions. Advised if develops CP/severe SOB/turning blue/AMS/ syncope/ hi fever to call 911- she verbalized understanding of instructions to the medic [email or web address] Not available 06/22/2024 13:10:23 07/12/2024 07/12/2024 I have reviewed and agree with the assessment and plan as documented by the ruffling hemmer automatic. I provided real time medical direction for this encounter and was immediately available to provide additional phone based assistance as needed. History as noted by ruffling hemmer automatic. Pt with history of hypertension, COPD/asthma, type 2 diabetes mellitus, dementia (Alzheimer's disease), osteoarthritis, and colon CA. 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 [facility] and was diagnosed with a viral URI. He also reports being seen by his costume designer last week and had labs and a [...] f/u with his primary care team or costume designer if his symptoms continue to persist despite [...] - [facility], [address] [place] [address], [id number] 19:02:16 rapid flu (A+B) 2023 024 DOMENICO [facility] - [facility], [address] [place] [address], [id number] 4 19:02:38 rapid SARS CoV 2 Ag, QL IA, respiratory specimen 2023 024 [email or web address] 0 Main - [facility], [address] [place] [address], [id number] 4 13:10:41 rapid flu (A+B) 2023 024 [email or web address] 0 Main - [facility], [address] [place] [address], [id number] 4 13:10:41 BMP, serum or plasma 2023 024 [email or web address] 0 Main - [facility], [address] [place] [address], [id number] 4 13:10:41 rapid SARS CoV 2 Ag, QL IA, respiratory specimen 2023 024 [facility], [address] [place] [address], [id number] 4 12:14:29 rapid flu (A+B) 2023 024 [facility] - [facility], [address] [place] [address], [id number] 4 12:14:49 Referral None recorded. Procedures None recorded. Surgeries None recorded. Imaging None recorded. Medication Orders doxycycline monohydrate 100 mg tablet 2024 025 [id number], [address] [place], [address], 5 09:20:59 benzonatate 200 mg capsule 2024 025 [facility], [address] [place], [address], 5 09:20:58 fluticasone propionate 50 mcg/actuati on nasal spray,suspe nsion 2023 024 [facility], [address] [place], [address], 10:22:30 Patient TargetsNo targets recorded. Patient InstructionsNo instructions recorded. Reason for Referral None Reported. Results Created Date Observation Date Name Description Value Unit Range Abnormal Flag Note LastModifiedBy Organization Detail LastModifiedTime 06/22/20 24 06/22/2024 rapid flu (A+B) Flu negati ve Not Available [facility] [address] [place] [address], [phone] 06/22/2024 11:17:48 06/22/20 24 06/22/2024 rapid SARS CoV 2 Ag, QL IA, respi rator y speci men rapid SARS CoV 2 Ag, QL IA, respiratory specimen negati ve Not Available [facility] [address] [place] [address], [phone] 06/22/2024 11:17:47 06/22/20 24 06/22/2024 BMP, serum or plasm a Ca 1.33 Not Available Main - [facility] [address] [place] [address], [phone] 06/22/2024 11:18:25 Result Notes None recorded. Medical Equipment None Reported. Allergies No known drug allergies Medications Name Sig Start Date Stop Date Status Note LastModified by Organization Details LastModified Time quetiapine 25 mg tablet TAKE 1/2 TABLET ORALLY 2 TIMES A DAY active Not Available Not Available Not Available ipratropium 0.5 mg-albuterol 3 mg (2.5 mg base)/3 mL nebulization soln TAKE 1 VIAL INHALED VIA NEBULIZER EVERY 6 HOURS NEEDED FOR WHEEZING active Not Available Not Available No t Available donepezil 5 mg tablet TAKE 1 TABLET BY MOUTH BEDTIME FOR 30 DAYS active Not Available Not Available No t Available albuterol sulfate 2.5 mg/3 mL (0.083 %) solution for nebulization 2.5 MG (3 ML) INHALED 4 TIMES A DAY NEEDED FOR SHORTNESS OF BREATH OR WHEEZING FOR 30 DAYS active Not Available Not Available Not Available trazodone 50 mg tablet TAKE 1 TABLET BY MOUTH EVERY DAY AT BEDTIME FOR SLEEP active Not Available Not Available No t Available cetirizine 10 mg tablet TAKE 1 TABLET BY MOUTH EVERY DAY active Not Available Not Available No t Available azithromycin 250 mg tablet TAKE 2 TABLETS BY MOUTH TODAY, THEN TAKE 1 TABLET DAILY FOR 4 DAYS DIRECTED active Not Available Not Available No t Available benzonatate 200 mg capsule TAKE 1 CAPSULE 3 TIMES A DAY BY ORAL ROUTE NEEDED FOR 10 DAYS, FOR COUGH. *NOT COVERED* active Not Available Not Available No t Available donepezil 10 mg tablet TAKE 1 TABLET BY MOUTH AT BEDTIME FOR 90 DAYS active Not Available Not Available No t Available prednisone 20 mg tablet TAKE 2 TABLETS BY MOUTH DAILY FOR 3 DAYS active Not Available Not Available N ot Available clonazepam 0.5 mg tablet TAKE 1/2 TAB NEEDED FOR INSOMNIA 30 MINS BEFORE BEDTIME MAY REPEAT 1 (MAX DAILY DOSE 1 TAB active Not Available Not Available N ot Available thiamine HCl (vitamin B1) 100 mg tablet TAKE 1 TABLET BY MOUTH EVERY DAY active Not Available Not Available No t Available melatonin 3 mg tablet TAKE 3 TABLETS BY MOUTH AT BEDTIME FOR SLEEP FOR 30 DAYS active Not Available Not Available No t Available dextromethor barrera-guaifen esin 10 mg-100 mg/5 mL oral syrup TAKE 10 ML BY MOUTH EVERY 6 HOURS NEEDED FOR COUGH active Not Available Not Available No t Available doxycycline monohydrate 100 mg tablet TAKE 1 TABLET BY MOUTH TWICE A DAY FOR 7 DAYS active Not Available Not Available No t Available famotidine 20 mg tablet TAKE 1 TABLET BY MOUTH 2 TIMES A DAY FOR 90 DAYS active Not Available Not Available Not Available lorazepam 0.5 mg tablet TAKE 1/2 TABLET BY MOUTH 3 TIMES A DAY NEEDED FOR ANXIETY active Not Available Not Available Not Available OneTouch Ultra Test strips USE DIRECTED ONCE A DAY active Not Available Not Available N ot Available benzonatate 100 mg capsule TAKE 1 CAPSULE BY MOUTH THREE TIMES A DAY NEEDED FOR COUGH active Not Available Not Available No t Available metformin 1,000 mg tablet TAKE 1 TABLET BY MOUTH EVERY DAY active Not Available Not Available No t Available hydrochlorot hiazide 12.5 mg capsule TAKE 1 CAPSULE BY MOUTH EVERY DAY FOR 90 DAYS active Not Available Not Available No t Available gabapentin 300 mg capsule TAKE 1 CAPSULE BY MOUTH EVERY NIGHT AT BEDTIME active Not Available Not Available No t Available sertraline 25 mg tablet TAKE 1 TABLET BY MOUTH EVERY DAY active Not Available Not Available No t Available omeprazole 20 mg capsule,gwendolyn yed release TAKE 1 CAPSULE BY MOUTH EVERY DAY active Not Available Not Available No t Available carbidopa 25 mg-levodopa 100 mg tablet PLEASE SEE ATTACHED FOR DETAILED DIRECTIONS active Not Available Not Available N ot Available losartan 100 mg tablet TAKE 1 TABLET BY MOUTH EVERY DAY active Not Available Not Available No t Available fluticasone propionate 50 mcg/actuatio n nasal spray,suspen jimmy ADMINISTER 1 SPRAY INTO EACH NOSTRIL TWICE A DAY active Not Available Not Available Not Available melatonin ER 3 mg tablet,exten ded release TAKE 1 TO 2 TABLETS BY MOUTH AT BEDTIME active Not Available Not Available No t Available OneTouch UltraSoft Lancets USE DIRECTED ONCE A DAY active Not Available Not Available N ot Available cholecalcife rol (vitamin D3) 250 mcg (10,000 unit) capsule TAKE 1 CAPSULE BY MOUTH 2 TIMES A WEEK active Not Available Not Available No t Available Gavilax 17 gram/dose oral powder TAKE 17 GRAMS (MIXED IN LIQUID) BY MOUTH DAILY FOR 30 DAYS active Not Available Not Available Not Available memantine 14 mg capsule sprinkle,ext ended release 24hr TAKE 1 CAPSULE BY MOUTH EVERY DAY FOR 30 DAYS active Not Available Not Available No t Available memantine 7 mg capsule sprinkle,ext ended release 24hr TAKE 1 CAPSULE BY MOUTH EVERY DAY active Not Available Not Available No t Available memantine 21 mg capsule sprinkle,ext ended release 24hr TAKE 1 CAPSULE BY MOUTH EVERY DAY active Not Available Not Available No t Available memantine 28 mg capsule sprinkle,ext ended release 24hr TAKE 1 CAPSULE BY MOUTH DAILY active Not Available Not Available Not Available Arnuity Ellipta 100 mcg/actuatio n powder for inhalation INHALE 1 PUFF DAILY active Not Available Not Available N ot Available OneTouch Ultra2 Meter DIRECTED active Not [...] [degF] 182.88 cm 98 % 98 % 77016.6 g 122 mm[Hg] 82 mm[Hg] Not Available [facility] - [facility] 4 10:19:48 Date Recorded Respiratory rate Body height Oxygen saturation Oxygen saturation in Arterial blood by Pulse oximetry Body weight Heart rate Body temperature Systolic blood pressure Diastolic blood pressure Provider Name and Address Organization Details Last Updated DateTime 4 14 /min 180.34 cm 98 % 98 % 50737.2 56 g 60 /min 98.7 [degF] 144 [...] /min 144 mm[Hg] 82 mm[Hg] Not Available [facility] - [employer] 4 12:56:22 Date Recorded Body temperature Respiratory rate Oxygen saturation Oxygen saturation in Arterial blood by Pulse oximetry Heart rate Systolic blood pressure Diastolic blood pressure Provider Name and Address Organization Details Last Updated DateTime 5 98.1 [degF] 16 /min 95 % 95 % 53 /min 126 mm[Hg] 82 mm[Hg] Not Available [employer] 5 09:13:44 Social History None recorded. Functional Status None recorded. Mental Status None recorded. Family History Nothing Reported. Medical History No medical history recorded. Past Encounters Encounter ID Performer Location Encounter Start Date Encounter Closed Date Diagnosis/Indication Diagnosis SNOMED-CT Code Diagnosis ICD10 Code Diagnosis Note [id number] Reyes Hanna MD Main - [address] [address] 02/19/2024 10:19:45 02/20/2024 12:55:18 Cough 67624066 R05.9 [id number] [facility] [address] [place] [phone] 06/22/2024 10:50:15 06/22/2024 13:52:43 Cough 62804010 R05.9 Advised to continue regular medicines and follow-up with PCP/BMP ordered as requested- results non-concer varun. Calcium is slightly elevated patient is not on any calcium supplement ation per his [id number] REJI RAMOS [facility] [address] [place] [phone] 07/03/2024 12:56:17 07/06/2024 20:29:08 Viral upper respiratory tract infection 587275785 J06.9 Evaluation in the field was performed by my ruffling hemmer automatic colleague, as noted above, I provided real-time [...] to tolerate PO or any other concerns. [id number] Skip Tovar MD Main - [facility] [address] [place] [phone] 07/12/2024 09:13:40 07/12/2024 14:48:07 Acute bronchitis 11137778 J20.9 Health Concerns Section Related Observation LastModified by Organization Detai ls LastModified Time None Recorded Concern Status LastModified by Organization Details LastModified Time None Recorded Advance Directives Directive None Recorded Payers Encounter Date Sequence Insurance Name Policy Number Policy Arroyo Covered Member ID Arroyo Member ID Guarantor Name 02/19/2024 1 [facility] - DOS ON OR AFTER 2022 - DUAL ELIGIBLE - ALF OPTIONS AND ONE CARE (MEDICARE REPLACEMENT/ADV ANTAGE - HMO) [id number]/22/[facility]24 1 [facility] - DOS ON OR AFTER 2022 - DUAL ELIGIBLE - ALF OPTIONS AND ONE CARE (MEDICARE REPLACEMENT/ADV ANTAGE - HMO) Elijah Bearden [id number] Elijah Suleiman 07/03/2024 1 [facility] - DOS ON OR AFTER 2022 - DUAL ELIGIBLE - ALF OPTIONS AND ONE CARE (MEDICARE REPLACEMENT/ADV ANTAGE - HMO) Elijah Bearden [id number] Elijah Bearden 07/12/2024 1 [facility] - DOS ON OR AFTER 2022 - DUAL ELIGIBLE - ALF OPTIONS AND ONE CARE (MEDICARE REPLACEMENT/ADV ANTAGE - HMO) Elijah Bearden [id number] Elijah Suleiman Notes Date Note Type Note Provider Name and Address Organization Details Recorded Time 02/19/2024 text/html CRC Nurse Triage Notes (Jennifer Cota): Reason For Request: coughing during nighttime Chief Complaints: Cough PMH: Diabetes, Severe Dementia, Hypertension Allergies: No Known Comments: Sr. Manager verified the member's name//address and phone number. [...] s/s and seek emergency treatment if needed [employer] Organization Information for Adam Duval ALS Business Legal Name: [employer] Address: [address] [place] [address], KENDY Szymanski [address], Wellness Trainer: César Dominguez MD DEONNA No.: [id number] [employer] POC Test Results from Adam Duval - ALS Rapid COVID antigen (10:16:04) COVID: - Rapid influenza antigen (10:16:05) Flu: - .................... .................... .................... .................... .................... .................... .................... . [employer] Note From Adam Duval: Patient seated in [...] for Covid and flu via rapid POC. [facility] orders Flonase to patient local pharmacy. Care and plan discussed with caregiver, grateful for service and expect to call back in the future. Red flags, patient education discussed. Supportive care, including tea with honey, and use of the Flonase device discussed. .................... .................... .................... .................... .................... .................... .................... . Disposition: Fulfilled Reyes Hanna MD [address] [facility],[address], [place], [address], [employer] 02/19/2024 11:14:41 06/22/2024 text/html HPI: See if [...] was negative. She would like him evaluated. [employer] Organization Information for Ying Raya Legal Name: [employer], Patient Communicator.? ? Address: [address] [place] [address], Wellness Trainer: Mason Willis MD CLIA No.: [id number] [employer] POC Test Results from Ying Raya iSTAT [...] .................... .................... .................... .................... .................... .................... . [employer] Note From Ying Raya: [facility] makes pt contact after being admitted to the home by pt's . He is found seated on the sofa w/ his arm resting on the arm rest and his head resting on that fist. He is conscious and alert and greets MI. He doesn't speak much at baseline, but [...] She consents to evaluation today for the pt.[facility] obtains vital signs and pt is physically assessed. Nothing remarkable is noted upon physical exam. A 21ga butterfly is used to attempt IV cannulation for blood draw in R forearm and is unsuccessful. A second 21ga butterfly is used in the R forearm for blood draw and is successful. Chem 8+ is performed and results are uploaded. [facility] contacts [facility] to discuss the above findings. [facility] requests a rapid COVID and flu in preparation for the CT. Pt's iCal is noted to be high. Rapid COVID and flu are performed and found to be negative. thanks [facility] for coming.[facility] is clear. Report completed by MICHELLE Raya [id number]. [facility] Lab Orders: rapid SARS CoV 2 Ag, QL IA, respiratory specimen: Performed .................... .................... .................... .................... .................... .................... .................... . [facility] Consulted: Sylvia Valentin .................... .................... .................... .................... .................... .................... .................... . Disposition: Fulfilled Sylvia Valentin MD [address] [place] [address],[address], [place], [address], [employer] 06/22/2024 13:10:57 07/03/2024 text/html CRC Nurse Triage [...] Dementia (e.g., Alzheimer's Disease), Osteoarthritis, Cancer Comments: Sr. Manager verified the member's name//address and phone number. [...] s/s and seek emergency treatment if needed. [employer] Organization Information for Nick Oconnell [employer] Legal Name: [employer].? ? Address: [address] [place] [address], Wellness Trainer: Mason Willis MD CLIA No.: [id number] [employer] POC Test Results from Nick Oconnell - ALS Rapid COVID antigen (12:55:28) COVID: - Attachments uploaded as part of this test result can be found under Documents section. Rapid influenza antigen (12:55:30) Flu: - Attachments uploaded as part of this test result can be found under Documents section. .................... .................... .................... .................... .................... .................... .................... . [employer] Note From Georgehao Nick: Dispatched to above address for URI symptoms. [...] reports he has an appointment with his costume designer on Friday for this. [facility] contacted, spoke with Dr. Ramos, advised of patient complaints, exam findings and test results. [facility] believes likely URI, recommends continued home care and monitoring and use of home nebulizer tx q6hrs. Patient and advised of [facility] recommendations, home care and red flags. Patient and understand all recommendations. Patient and have no additional questions or concerns at this time. SC8 clear. EOR. .................... .................... .................... .................... .................... .................... .................... . [facility] Consulted: Reji Ramos .................... .................... .................... .................... .................... .................... .................... . Disposition: Fulfilled REJI RAMOS MD [address] [place] [address],[address], [place], [address], [facility] 07/03/2024 21:39:58 07/12/2024 text/html This was a supervised home visit with ruffling hemmer automatic Benny Meade. [facility] Nurse Triage Notes (Gilberto Gibbons - RN): Reason For Request: Pt's spouse Sylvia a severe cough>mbr was recently seen by [facility] in the last couple weeks> Patient Reports: [...] time of the visit was too late Sr. Manager verified the Pt.'s name//address and phone number. Education provided on the response time and the Pt. was advised to monitor reported s/s and seek emergency treatment if needed. CG reports the pt is feeling unwell with a cough/cold and congestion - Seen by [facility] on 07/03 - S/S are not improving - Seen by costume designer with a negative chest x-ray -Taking over the counter cough medication with no relief - Follow up requested - [facility] notes: he evaluation revealed a 69-year-old male [...] .................... .................... .................... .................... .................... .................... . [employer] Note From Benny Meade: This visit is [...] The white states the patient saw his costume designer last week and had a negative chest [...] .................... .................... .................... .................... .................... .................... . [facility] Consulted: Skip Tovar .................... .................... .................... .................... .................... .................... .................... . Disposition: Fulfilled Skip Tovar MD [address] [facility],[address], [place], [address], [facility] 07/12/2024 12:21:45
--- OUTSIDE RECORDS SUMMARY | 2024-10-13 16:12 | XMS_ITS ---
[facility] Organization [facility] Address [address] [place] [address] Care Team Providers Care Attendant Arcade Name Role Phone Chung GONZALES [place] Primary Care Provider Rodolfo Tran Unavailable [phone] Allergies No Known Allergies REASON FOR VISIT At Risk Footcare, Painful Nail(s) aggravated by shoes and causing difficulty standing/walking. Medications Medication SIG (Take, Route, Frequency, Duration) Notes Start Date End Date Status Carbidopa-Levodopa 25-100 MG PLEASE SEE ATTACHED FOR DETAILED DIRECTIONS Oral for 90 Days Active MiraLax 17 GM/SCOOP 1 scoop mixed with 8 ounces of fluid Orally Once a day Not-Taking Famotidine 20 MG 1 tablet at bedtime as needed Orally Once a day Not-Taking Sertraline HCl 25 MG 1 tablet Orally Onc e a day Not-Taking clonazePAM Not-Takin g Extra Depth Orthopedic Shoes, (1) Pair With (3) Pair Custom Heat Molded Multidensity Innersoles Dx: NIDDM/PVD(E11.51), Hammertoe Foot Deformity(M20.41,M20. 42), Preulcerative Skin Lesion(s)(L85.1) Wear Daily for 365 days 01/07/2024 Active Vitamin D3 250 MCG (34613 UT) as directed Orally Active hydroCHLOROthiazide 12.5 MG 1 capsule in the morning Orally Once a day Active Losartan Potassium 100 MG 1 tablet Orall y Once a day Active metFORMIN HCl 1000 MG 1 tablet with a me al Orally Once a day Active Donepezil HCl Active Memantine HCl Active [...] ast year? No Points 0 Interpretation Negative Vital Signs Height 5ft 11in in 09/29/2024 Weight 192 lbs 09/29/2024 BMI 26.78 kg/m2 09/29/2024 Blood pressure systolic 132 mm Hg 09/30/19 Blood pressure diastolic 86 mm Hg 025 Procedures Procedure Date Ordered Date Performed Result Body Sit e 01002-VRFWGDT NAIL, 1-5 09/29/2024 N/A 96571-YHSP SKIN LESIONS, 2 TO 4 09/29/2024 N/A E4517-ATCKMQHS DYSTROPHIC NAILS ANY # 09/29/2024 N/A Encounters Encounter Location Date Provider Diagnosis [facility] [address] [address] 09/29/2024 Rodolfo Kaplan Type 2 diabetes mellitus with diabetic peripheral angiopathy without gangrene E11.51 ; Tinea unguium B35.1 ; Pain in right toe(s) M79.674 and Pain in left toe(s) M79.675 Assessments Encounter Date Diagnosis (ICD Code) Assessment Notes Treatment Notes Treatment Clinical Notes Section Notes 09/29/2024 Type 2 diabetes mellitus with diabetic peripheral angiopathy without gangrene (ICD-10 - E11.51) Q7(A), Q8(2B), Q9(1B,2C) 09/29/2024 Tinea unguium (ICD-10 - B35.1) 09/29/2024 Pain in right toe(s) (ICD-10 - M79.674) 09/29/2024 Pain in left toe(s) (ICD-10 - M79.675) Plan Of Treatment Pending Test Test Name Order Date 94738-TYHCBAY NAIL, 1-5 09/29/2024 26667-SHOL SKIN LESIONS, 2 TO 4 09/30/19 25 Y3105-EOHOSHEV DYSTROPHIC NAILS ANY # Next Appt Details Follow Up: 2 Months, Reason: Provider Name:Rodolfo Kaplan , 12/23/2024 02:45:00 PM, [address] , [address], [place], [address], Procedure Notes * Category Sub-Category Detail Notes [...] at risk. Therefore, the benign hyperkeratotic lesions, (2) in total, locations as stated and described in the exam ( Plantar, Heel(s) , B/L ), were pared, and/or cut utilizing a sterile 15 blade, tissue nippers, and/or power dremel instrumentation by the physician of record - 02238, Q8 Debride Nails 1-5 Procedure: Due to the cli nical pathology outlined in the exam findings, performance of this nail treatment is medically necessary as its management by an unskilled/untrained nonprofessional would put this patients foot and overall health at risk. Therefore, debridement to affected nail(s), as described in exam ( TA , T5 ), was performed exclusively by the physician of [...] necessary to maintain effective symptomatic relief - 50593 Nail Reduction Nail Reduction (-27) Trimming o [...] tissue - G0127, Q8 Progress Notes * Elijah BEARDENDOB:1955 ( 69 yo M)Acc No.[id number]:09/29/2024 Progress Note Patient:?Elijah BEARDEN Provider:?Rodolfo Kaplan DPM :1955???Age:69 Y???Sex:Male Francis e:09/29/2024 Address:[address] [place] [address] [place], [id number] Pcp:Yuri Wilkes MD Subjective: * Chief Complaints: * ???At Risk FootcarePainful N ail(s) aggravated by shoes and causing difficulty standing/walking. * HPI: ???At Risk footcare:?Pt States Last PCP Visit:?Date?07/22/2024 States has an appt with PCP soon - 12/02 ?Misc?Patient accompanied by, ,SYLVIA, who is physically present in exam room at time of visit.? * ROS:?General/Constitutional:?Nausea?denies.?Vomiting?denies.?Hunger Thirst?denies.?Loss appetite?denies.?Chills?denies.?Fatigue?denies.?Fever?denies.?Night Sweats?denies.?Unexplained weight loss?denies.?Unexplained weight gain?denies.?HEENTM:?Dentures?denies.?Dizziness?denies.?Glasses/contacts?admits.?Retinopathy?den ies.?Blurred/double vision?denies.?TMJ?denies.?Discharge/drainage?denies.?Implants?denies.?Sore throat?denies.?Dental implants?denies.?Hard of hearing ?denies.?Difficulty chewing/swallowing/speaking?denies.?Nose bleeds?denies.?Sore mouth?denies.?Respiratory:?On O xygen?denies.?Pneumonia/pleurisy?denies.?Bronchitis?denies.?Emphysema?denies.?Co ughing?denies.?Cough blood?denies.?Shortness of breath?denies.?Wheezing?denies.?Cardiovascular:?Pacemaker?denies.?MVP?denies.?WPW?denies.?CHF?denies.?Heart attack?denies.?Septal defect?denies.?Rapid beat?denies.?Chest pain ?denies.?Atrial Fib.?denies.?Murmur/Palpitations?denies.?Gastrointestinal:?Hemorrhoids?denies.?Stomach/Abdominal pain?denies.?Dark blood stool?denies.?Irritable bowel ?denies.?Constipation?denies.?Diarrhea?denies.?Hematology:?Swelling?denies.?Clots?denies.?Varicose Veins?denies.?Bruising?denies.?Bleeding problem?denies.?Genitourinary:?Blood urine?denies.?Frequent/Painfu/urination/bladder control?denies.?Kidney stones?denies.?Infection (UTI)?denies.?Nephropathy?denies.?sex trans dis (STD)?denies.?Prostate?denies.?Musculoskeletal:?Hammertoes?admits.?Bunions?denies.?Back Pain?denies.?Muscle Cramps/ Resting?denies.?Muscle cramps / walking?denies.?Generalized aches and pains?denies.?Weakness?denies.?Integ.:?Cole?denies.?Scars?denies.?Corns/calluses?admits.?Ingrown nails?admits.?Painful nails?admits.?Open Sores?denies.?Rashes?denies.?Neurologic:?Difficulty sleeping?denies.?Brain disorder?denies.?Numbness?denies.?Balance t rouble?denies.?Confusion?denies.?Fainting/blackouts?denies.?Tingling?denies.?Marcell mors?denies.? * Medical History:? * Surgical History:?colonoscop y kidney removal, half inus surgery esophagogastroduodenoscopy colon cancer 02/23/20 * Hospitalization/Major Diagno stic Procedure:?ER- coughing 2023 * Family History:?Mother: dece ased, pancreatic cancer, diagnosed with Diabetic - NIDDM, Unspecified essential hypertension, Unspecified heart disease, Other malignant neoplasm of unspecified site.?Father: , diagnosed with Diabetic - NIDDM.?Maternal Grand Mother: stomach cancer, diagnosed with Other malignant neoplasm of unspecified site.? * Social History:?Tobacco Use:?Tobacco use other than smoking?Are you an other tobacco user??No ?Tobacco Control (Standard)?Tobacco use:?Nonsmoker ?Additional Findings: Tobacco non-user?Current nonsmoker ???Drugs/Alcohol:?Drugs?Have you used drugs other than those for medical reasons in the past 12 months??No ???Miscellaneous:?Caffeine: no. ?Exercise: yes, walking. ?Marital status: . ?Occupation: Retired. ???Drug/Alcohol:?AUDIT-C (Standard)?Did you have a drink containing alcohol in the past year??No ?Points?0 ?Interpretation?Negative * Medications:?TakingDonepezil HCl Memantine HCl metFORMIN HCl 1000 MG Tablet 1 tablet with a meal Orally Once a day Losartan Potassium 100 MG Tablet 1 tablet Orally Once a day hydroCHLOROthiazide 12.5 MG Capsule 1 capsule in the morning Orally Once a day Vitamin D3 250 MCG (90895 UT) Tablet as directed Orally Extra Depth [...] a day Taking Vitamin D3 250 MCG (72829 UT) Tablet as directed Orally Taking Extra [...] Allergies:?N.K.D.A.yes[Aller gies Verified] Objective: * Vitals:?Ht: 5ft 11in, Wt:192 , BMI:26.78, Shoe size: 11, BP:132/86mm Hg, BS: 136, Ht-cm: 180.34 cm, Wt-k.09 kg. * ???Past Orders: ???Lab:HEMOGLOBIN A1C (GLYCO HEMOGLOBIN) (Order Date - 09/14/2024) (Collection Date & Time - 09/14/2024 03:42 PM) ? Value Reference Range ?HEMOGLOBIN A1C % (HH) 7.1 * Examination: ???Ophthalmology Referral: ?DIABETES EYE EXAM?Procedure Performed:?Yes ?Date of Exam Performed?07/19/2024 ?Diabetic Retinopathy Screening:?Yes ?Retinal Screening Performed:?Yes ?Findings of Diabetic Eye Exam:?no retinopathy?Vascular: ?DP PULSES (B):?1/4, B/L.?PT PULSES (B):? 0/4, [...] lesion(s) located at , Plantar, Heel(s) , B/L.? Assessment: * Assessment: 1.?Tinea unguium - B35.1???2 .?Type 2 diabetes mellitus with diabetic peripheral angiopathy without gangrene - E11.51 (Primary)???Specify :Q8???Notes :Q7(A), Q8(2B), Q9(1B,2C)???3.?Pain in right toe(s) - M79.674???4.?Pain in left toe(s) - M79.675??? Plan: * Treatment: 2.?Tinea unguium?Procedure: 01811-YYJZYFJ NAIL, 1-5 * Procedures:?Debride Nails 1-5:?Procedure:?Due to the clinical pathology outlined in the exam findings, performance of this nail treatment is medically necessary as its management by an unskilled/untrained nonprofessional would put this patients foot and overall health at risk. Therefore, debridement to affected nail(s), as described in exam (?TA?,?T5?), was performed exclusively by the physician of [...] necessary to maintain effective symptomatic relief - 52765.?Keratoma Treatment:?Parring or Cutting of Benign Hyperkeratotic Lesion(s)?(-56) 2-4 Lesions - Due to the at risk nature of the patients medical condition as documented in the exam findings, performance of this keratoderma treatment is medically necessary as its management by an unskilled/untrained nonprofessional would put this patients foot and overall health at risk. Therefore, the benign hyperkeratotic lesions, (2) in total, locations as stated and described in the exam (?Plantar,?Heel(s)?,?B/L?), were pared, and/or cut utilizing a sterile 15 blade, tissue nippers, and/or power dremel instrumentation by the physician of record - 51285, Q8.?Nail Reduction:?Nail Reduction?(-27) Trimming of all dystrophic [...] DYSTROPHIC NAILS ANY #, Modifiers: XS , [id number] DEBRIDE NAIL, 1-5, Modifiers: XS 17590 TRIM SKIN LESIONS, 2 TO 4, Modifiers: XS , Q8 * Follow Up:?2 Months * Images: * Sign off status: Completed true * Provider:?Rodolfo Kaplan DPM Date:?2024 Generated for Shanon bedoya/Stephanie/Leonor on:?10/13/2024 04:12 PM EDT History and Physical Notes * HPI (History of Present Illness) Category Sub-Category Detail Notes Category Not es At Risk footcare Pt States Last PCP Visit: Date: 07/22/2024 States has an appt with PCP - 12/02 [facility] Patient accompanied by, , SYLVIA, who is physically present in exam room at time of visit Examination Category Sub-Category Detail Notes Category Not es Dermatologic SKIN FINDINGS: Skin exam reveal s Keratotic lesion(s) located at , Plantar, Heel(s) , B/L Ophthalmology Referral DIABETES EYE EXAM Procedu re Performed:: Yes ?Date of Exam Performed: 07/19/2024 Diabetic Retinopathy Screening:: Yes Retinal Screening Performed:: Yes Findings of Diabetic Eye Exam:: no retin opathy Vascular DP PULSES (B): 1/4, B/L PT [...]
--- NOTE | 2024-10-13 16:42 | MHC.SL.IMP ---
Date of Plan of Treatment: 10/13/24 Onset of Symptoms/Illness: 07/14/24 Date Treatment Started: 10/13/24 Admitting Diagnosis: Dementia Primary Speech & Language Diagnosis: R13.12 Oropharyngeal Phase Dysphagia Reason for Today's Visit: 60122 Modified Barium Swallow Study Pre-evaluation Dietary Consistencies: Regular Pre-evaluation Liquid Consistency: Thin Pre-evaluation Medication Administration: Whole with Liquid Medical History: Modified Barium Swallow Study Fluoroscopic Evaluation of Swallowing Function CPT Code 40906 Evaluation Year: 2024 Reason for Study: Concern for microaspiration Referring Physician: Prema Walker NP Evaluating Clinician: Violeta Madrid MA, CCC-RARE/ENDANGERED SPECIES SPECIALIST Study Number: 1 Patient Name: Elijah Bearden Status: Outpatient, Wheelchair Age: 69 Gender: Male Medical History Medical History Cerebral amyloid angiopathy Obstructive sleep apnea Overweight (BMI 25.0-29.9) Alzheimer's dementia Depression Vitamin D deficiency Memory impairment Renal cell carcinoma of right kidney Essential hypertension Type 2 diabetes mellitus with unspecified complications H/O malignant neoplasm of small intestine Diverticula of colon Kidney mass Anemia Diabetes Hypertension Surgical History Hx of colonoscopy Hx of kidney removal History of esophagogastroduodenoscopy (EGD) H/O sinus surgery Current (pre-evaluation) Intake/Diet: Route: PO Diet Grade: Regular Liquid Consistencies: Thin Pre-Study Functional Oral Intake Scale (FOIS): 7- Total oral intake with no restrictions Pain: None reported at time of study SUBJECTIVE: Patient is a 69 year old male referred for a modified barium swallow study (MBSS) by Prema Walker NP from the Pulmonology office. Per EMR, patient presented to the ED on 07/14/24 with concerns of chronic cough for four months. He was then seen by Pulmonology, with chest imaging findings that were negative for acute disease. Patient was diagnosed with JACI, however, it is noted that he refuses to keep the BiPAP in place at night. Patient was referred for this study due to concerns of microaspiration. Patient was accompanied by his , who reports patient has prolonged coughing fits at night, however, this does not occur while he is eating or drinking. She denies patient having trouble swallowing. Pertinent medical history includes Alzheimer?s dementia, memory impairment, essential hypertension, type 2 diabetes mellitus, hx malignant neoplasm of the small intestine, diverticula of colon, kidney mass, and anemia. Oral Motor Exam Facial Symmetry: Symmetrical Mouth Occlusion: Normal Oral-Facial Teeth Characteristics: Intact/Normal Oral-Facial Lip Pucker Description: Normal Oral-Facial Smile (Lips) Description: Normal Tongue Size: Normal Tongue Excursion Description: Incomplete Tongue Range of Movement Description: Reduced Tongue Speed of Movement Description: Normal Tongue Strength of Movement (against opposing pressure): Normal Tongue Movement Characteristics: Normal/Absent Food and Liquid Trials: Oral Impairment: Lip Closure: Did not test Oral Impairment: Tongue Control During Bolus Hold: 0=Cohesive bolus between tongue to palatal seal Oral Impairment: Bolus Preparation/Mastication: 1=Slow prolonged chewing/mashing with complete re-collection Oral Impairment: Bolus Transport/Lingual Motion: 1= Delayed initiation of tongue motion Oral Impairment: Oral Residue: 2=Residue collection on oral structures Oral Impairment:Initiation of Pharyngeal Swallow: 1=Bolus head in valleculae Pharyngeal Impairment: Soft Palate Elevation: 0=No bolus between soft palate (SP)/pharyngeal wall (PW) Pharyngeal Impairment: Laryngeal Elevation: 0=Complete superior movement of thyroid cartilage (see description) Pharyngeal Impairment: Anterior Hyoid Excursion: 0=Complete anterior movement Pharyngeal Impairment: Epiglottic Movement: 0=Complete inversion Pharyngeal Impairment: Laryngeal Vestibular Closure:: 1=Incomplete: narrow column air/contrast in laryngeal vestibule Pharyngeal Impairment: Pharyngeal Stripping Wave: 0=Present: complete Pharyngeal Impairment: Pharyngeal Contraction: Did not test Pharyngeal Impairment: Pharyngoesophageal Segment Openin=Partial distention/partial duration: partial obstruction of flow Pharyngeal Impairment: Tongue Base (TB) Retraction: 1=Trace column of contrast/air between TB and posterior PW Pharyngeal Impairment: Pharyngeal Residue: 1=Trace residue within or on pharyngeal structures Pharyngeal Impairment: Esophageal Clearance Upright Position: Did not test Impressions and Recommendations OBJECTIVE: Time-out: performed at 14:45 Evaluation Start: 14:30; Stop: 14:35 Patient Positioning: Standing Viewing Planes: LATERAL ONLY Contrast: MBSImP? Standardized Protocol using commercially prepared, standardized Barium viscosities, including: Varibar? THIN LIQUID (40% w/v, <15 cps) , Varibar? PUDDING (40% w/v, <8791-7160 cps) , 1/2 Shortbread Cookie (1 x1 x.25 ) [facility] ID: [id number] [facility] Results: Lip closure for intraoral bolus containment could not be assessed due to logistical reasons not related to physiologic impairment. Tongue control during bolus hold maintained a cohesive bolus held between tongue to palate seal. Bolus preparation and mastication resulted in slow, prolonged chewing/mashing but with complete re-collection. Bolus transport/lingual motion demonstrated delayed initiation of tongue motion. Oral residue was a collection on oral structures. Initiation of the pharyngeal swallow occurred when the bolus head was in the valleculae. Soft palate elevation resulted in no bolus between the soft palate and the pharyngeal wall. Laryngeal elevation demonstrated complete superior movement of the thyroid cartilage with complete approximation of the arytenoids to the epiglottic petiole. Anterior hyoid excursion demonstrated complete anterior movement. Epiglottic movement resulted in complete inversion. Laryngeal vestibular closure was incomplete, with a narrow column of air/contrast noted within the laryngeal vestibule at the height of the swallow. Pharyngeal stripping wave was present and complete. Pharyngeal contraction could not be determined due to logistical reasons not related to physiologic impairment. Pharyngoesophageal segment opening demonstrated partial distension/partial duration, with partial obstruction of bolus flow. Tongue base retraction allowed a trace column of contrast or air between the retracted tongue base and the posterior pharyngeal wall. Pharyngeal residue was a trace within or on pharyngeal structures. Esophageal clearance in the upright position could not be assessed due to logistical reasons not related to physiologic impairment. Oral Impairment Score: 5 (absence of score, component 1) Pharyngeal Impairment Score: 2 (absence of score, component 13) Esophageal Impairment Score: --- (absence of score, component 17) Laryngeal Penetration and Aspiration: Neither penetration nor aspiration was observed in today's study with Cookie, Pudding-thick. Penetration was observed in today's study. Thin Contrast entered the airway, remained above the vocal folds, and was ejected from the airway. ASSESSMENT: This exam was conducted by the radiologist and the speech pathologist. Patient was seated upright at 90 degrees in a wheel chair. He fed himself when provided with occasional verbal cues. Patient trialed thin (via individual and sequential cup sips), puree, and regular solid textures. Patient demonstrated good tongue control, with no premature posterior spillage. Mastication was slowed and prolonged, but with good clearance. Posterior lingual motion was mildly delayed. Pharyngeal swallow trigger initiated as the bolus head reached the valleculae. No evidence of nasopharyngeal reflux. Complete laryngeal elevation with complete epiglottic inversion. Incomplete laryngeal vestibular closure with flash penetration seen on thin liquids. A trace amount of contrast entered the airway above the vocal folds and immediately ejected. No evidence of aspiration during this exam. Trace residue coating the posterior tongue, valleculae and pyriform sinuses cleared with subsequent swallows. Liquid Intake Recommendation: Thin Liquid Intake Strategies: Small Sips Dietary Recommendations: Regular Medication Administration: Whole with Liquid Please contact the pharmacy regarding appropriate crushable or liquid drug formulations that are available whenever modified delivery is recommended. Compensatory Strategies Recommended: Sitting Upright (90 deg), Small Bites and Sips, Alternate Liquids/Solids, Rate of Ingestion Change Recommendation for Speech Therapy: NA:Typical Evaluation Text Comment: Intake Recommendations: Route: PO Diet Grade: Regular Liquid Consistencies: Thin Post-Study Functional Oral Intake Scale (FOIS): 7- Total oral intake with no restrictions Flash penetration on thin liquids. No evidence of aspiration. Good oral and pharyngeal clearance. Suggested Referrals: The patient might benefit from a referral to: Pulmonology Indication for Referral: Follow up Therapy Recommendations: Diet modification and further speech intervention for dysphagia is not warranted at this time. RARE/ENDANGERED SPECIES SPECIALIST discussed findings with patient and his after the exam. denies having any questions at this time. Therapy will be discontinued. Recommend continue work up with Pulmonology. Clinician - Supplemental, Miscellaneous Communication: It is important to note MBSS objective studies are snapshots in time and Patient function might vary with factors such as time of day or concomitant medical conditions. For this reason, the final treatment plan for this patient should rest with their medical care team. Additional recommendations should be considered with the totality of the Patient in mind. Thank for the opportunity to participate in the care of this patient. If you have any questions about the content of this report, please contact the [facility] at [facility]. Education: Education regarding findings from today's study and plans for therapy were provided to Patient and family/caregiver through Verbal Instruction. Understanding was expressed by the Patient and family/caregiver. [place] Clinician/Clinical Fellow: No Supervisory Statement: N/A Speech Language Pathologist: Violeta Madrid M.A., CCC-RARE/ENDANGERED SPECIES SPECIALIST
== END 2024-10-13 13:57 | disposition home or self-care (01) ==
LOC: HO.XRAY 13:56
PROVIDERS: PCP Internal Medicine; Visit Provider Nurse Practitioner Family
DX: R13.10 Dysphagia, unspecified (principal)
CPT/HCPCS: 74230; 92611

== ENCOUNTER → 2024-10-13 14:30 | Outpatient (BNV) | payer OTHER, SELFPAY | PROVIDERS: PCP Internal Medicine; Visit Provider Radiology Diagnostic Radiology | DX: R13.10 Dysphagia, unspecified (principal) | CPT/HCPCS: 74230 ==

== ENCOUNTER 2024-10-26 15:29 | Outpatient (AMB) | payer OTHER, SELFPAY ==
[2024-10-26 15:49] VITALS: PULSE 88; O2SAT 98; BMI 24.8
--- NOTE | 2024-10-26 15:49 | A.OFFVIS_ITS ---
Vital Signs 10/26/24 15:49 Height 5 ft 11 in Weight 178 lb BMI 24.8 Pulse 88 Pulse Source Pulse Oximeter Pulse Oximetry (%) 98 Oxygen Delivery Method Room Air Intake Visit Reasons: bronchitis Plasma Processing Centrifuge Operator Required: No Computer Tape Librarian: Computer Tape Librarian offered & declined Accompanied by: Spouse Allergies No Known Allergies [No Known Allergies*] Allergy (Verified 10/26/24 15:52) Medication List - Last Reconciled 10/26/24 by Kathy Mosquera LPN [ADULT PULL UPS (large) As directed] albuterol sulfate 2.5 mg (3 mL) inhalation QID PRN 30 days [Bed pads As directed] benzonatate 100 mg PO BID-TID PRN 30 days blood sugar diagnostic (Nezasa Ultra Test strips) As directed once a day blood-glucose meter (Nezasa Ultra2 Meter) As directed blood-glucose,rate manager,cont ([employer]Style Jermaine 3 Grayling) As directed blood-glucose sensor ([employer]Style Jermaine 3 Sensor device) As directed carbidopa-levodopa 25-100 mg ER 1 tab PO BID 30 days cetirizine (Zyrtec) 10 mg PO DAILY chair, wheel (Wheel chair) Transport wheelchair As directed. To reduce risk for falls secondary to gait d/o and Alzheimer's dementia. cholecalciferol (vitamin D3) 250 mcg PO 2XW 90 days clonazepam 0.25 mg (1/2 x 0.5 mg) PO BEDTIME PRN 30 days [Commode As directed] dextromethorphan-guaifenesin 10-100 mg/5 mL 10 mL PO Q6H PRN [DIABETIC SHOES (1 pair) As directed] [disposable bed pads /10 packs As directed] famotidine 20 mg PO BID 90 days fluticasone furoate 100 mcg/actuation (Arnuity Ellipta) 1 inh inhalation DAILY fluticasone propionate 50 mcg/actuation 1 spray intranasal BID [Foam Mattress As directed] guaifenesin 200 mg (5 mL) PO Q4H PRN hydrochlorothiazide 12.5 mg PO DAILY 90 days [incontinent wipes / 10 packs As directed] ipratropium-albuterol 0.5 mg-3 mg(2.5 mg base)/3 mL 3 mL inhalation Q6H PRN lancets (Nezasa UltraSoft Lancets) As directed once a day lancets As directed lorazepam 0.25 mg (1/2 x 0.5 mg) PO TID PRN losartan 100 mg PO DAILY 90 days melatonin 9 mg (3 x 3 mg) PO BEDTIME 30 days melatonin ER 3 - 6 mg orally QHS; 30 days memantine 28 mg PO DAILY 90 days metformin 1,000 mg PO DAILY [Non slip bath mat As directed] nut.tx.gluc.intol,lac-free,soy (Glucerna oral liquid) 1 can orally TID with meals; 30 days omeprazole 20 mg PO DAILY polyethylene glycol 3350 (Miralax) 17 grams PO DAILY 30 days [SHOE INSERTS (3 pairs) As directed] [Shower handle As directed] thiamine HCl (vitamin B1) 100 mg PO DAILY 90 days [Transport chair light weight As directed] walker (Ultra-Light Rollator misc) As directed [wedge pillow As directed] [wheelchair back cushion As directed] [wheelchair seat cushion As directed] HPI HPI bronchitis: Details: Elijah is pleasant 69 year old male, former smoker, with underlying DMII, HTN, JACI not on CPAP, dementia, nasal polyps, renal cell carcinoma s/p partial nephrectomy, and 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 He is accompanied by who provides HPI given h/o dementia. He continues to report chronic dry cough that was minimally responsive to a zpak, prednisone, Zyrtec, famotidine and nasal spray. When reviewing chart it appears PCP placed on Famotidine 20 mg BID however has only been using it QD. She reports cough is almost always present at night, rarely during the day. There was question of silent aspiration, however recent MBSS negative. Prior Chest CT revealed mild bronchial thickening and was trialed on ICS however patient unable to use. Nebulized therapy was sent but states patient tends to bite down on tubing or pulls away, unable to complete treatment. She has been using positional therapy and benzonatate with moderate effect. She denies any visits to urgent care or hospitalizations related to respiratory distress since the last visit. [facility] Medical History Cerebral amyloid angiopathy Obstructive sleep apnea Overweight (BMI 25.0-29.9) Alzheimer's dementia Depression Vitamin D deficiency Memory impairment Renal cell carcinoma of right kidney Essential hypertension Type 2 diabetes mellitus with unspecified complications H/O malignant neoplasm of small intestine Diverticula of colon Kidney mass Anemia Diabetes Hypertension Surgical History Hx of colonoscopy Hx of kidney removal History of esophagogastroduodenoscopy (EGD) H/O sinus surgery Family History Father No problems noted. Mother Heart disease Pancreas cancer Maternal Grandmother Stomach cancer Social History Household Members: Spouse Housing: Apartment Are you a primary managed care liaison to a significant other at home: No Do you presently have visiting nurse or other home services: No Alcohol intake: former Comment: given as premed Patient Tobacco Use Status: Former Tobacco user Tobacco use type: Cigar e-Cigarette/Vaping Use: Never Used Second Hand Smoke Exposure: No Advance Directives Date on File: 09/12/20 service: No Current occupational status: retired Cognitive needs: No Hearing needs: No Vision needs: Yes (glasses) Review of Systems Const All systems reviewed & are unremarkable except as noted in HPI and below Denies excessive sweating, Denies fever(s) and Denies night sweats ENT Reports Normal hearing present Card Denies leg edema, Denies dyspnea on exertion, Denies orthopnea and Denies paroxysmal nocturnal dyspnea Resp Denies excessive phlegm production, Denies pain on inspiration, Denies pain with cough, Denies dyspnea on exertion and Denies stridor Neuro Reports Normal hearing present Endo Denies excessive sweating Aller/Immun Denies seasonal rhinorrhea Physical Exam Vital Signs: Last Vital Signs Pulse 88 10/26/24 15:49 Pulse Ox 98 10/26/24 15:49 Oxygen Delivery Method Room Air 10/26/24 15:49 BMI result Body Mass Index 24.8 Const General: comfortable, no acute distress, well developed and alert HEENT Head: Yes normal to inspection, Yes normocephalic and Yes atraumatic Ears: hearing grossly normal bilaterally and external ears normal Eyes General: appearance normal, both eyes and all related structures Eyelids: Yes eyelids normal Sclerae: sclerae normal EOM: EOMs intact bilaterally Neck Neck: Yes normal visual inspection and Yes no lymphadenopathy Lymphatic: no lymphadenopathy noted Chest Chest palpation & inspection: normal inspection of the chest Resp Other: unable to follow commands for respiratory exam Effort & Inspection: normal respiratory effort, able to speak in complete sentences, no audible wheezes, no stridor, not tachypneic, no tripod positioning and no use of accessory muscles Auscultation: diminished lung sounds Cardio Jugular venous distension: no JVD Rate: regular rate Rhythm: regular rhythm Skin Other: warm, dry General skin exam: no rashes or lesions noted Neuro Cranial nerves: Yes Normal hearing present Cognition (Neuro): normal cognition Gait exam (Neuro): Normal gait present Extrem General: Yes normal to inspection, Yes capillary refill normal, Yes no clubbing, cyanosis or edema and Yes no pedal edema Psych Appearance: grossly normal and well kempt Affect: Blunted affect present Insight: Limited insight present (Psych) Judgement: Limited judgement present (Psych) Assessment & Plan Assessment & Plan (1) Cough: Code(s): R05.9 - Cough, unspecified Category: Medical (2) Dementia: Code(s): F03.90 - Unspecified dementia, unspecified severity, without behavioral disturbance, psychotic disturbance, mood disturbance, and anxiety Category: Medical Plan Will also send for CXR given difficulty with respiratory exam and prior note of bronchial thickening. Will send mask to use with nebulizer to better assist with nebulized therapy. Patient with worsening symptoms at night and positionally, possibly related to uncontrolled reflux. Reviewed prior prescription from PCP which stated Famotidine BID, aware and will increase. is aware to call office if symptoms worsen. She is also requesting refill on zyrtec as she felt some improvement with use. All questions were answered and patient is in agreement of plan. Will follow-up in 4-6 weeks or sooner if needed. Orders: Orders XR chest 2V Today R05.9 - Cough, unspecified Medications: New cetirizine (Zyrtec) 10 mg PO DAILY PRN 30 caps 3RF allergy symptoms Coding Level of Care Code Est Pt Level 4 (51624) Diagnoses Cough R05.9 Dementia F03.90
--- OUTSIDE RECORDS SUMMARY | 2024-10-26 18:21 | XMS_ITS | Clinical Summary ---
Author Organization [facility] Address [address] [place] [address] Care Team Providers Care Picker Tender Name Role Phone ChungYuri Primary Care Provider [phone] Allergies Active Allergy Reactions Criticality Noted Date [...] Type Department Care Team Description 08/09/2024 Telephone [facility] [address] [place] [address] Certified Lactation Counselor: Rachele Patino NP 07/28/2024 Telephone [facility] [address] [place] [address] [place] [address] Certified Lactation Counselor: Preethi Greene Telephone Intake, Staff PAC Patient [...] 07/07/2024 Health Care Proxy Review 07/07/2024 Social Allergen [employer] Annual Screening 07/07/2024 RSV Vaccine [...] complete this topic Procedures * Due to [place] [employer] law, this organization might not be sharing negative HIV tests. Procedure Name Priority Date/Time Associated Diagnosis Comments AMB EXTERNAL CT CHEST, OUTSIDE RESULT 07/21/2024 COLONOSCOPY 06/21/2009 1:45 PM EST from Last 3 Months or Most Recently Relevant to Health Maintenance Results * Due to [place] [employer] law, this organization might not be sharing [...] Relevant to Health Maintenance Insurance HSNO/FREE CARE [facility] Advance Directives Documents on File Type Date Recorded Patient Deputy Coroner Investigator Expl anation Health Care Proxy 12/13/2020 10:22 AM * Full Code (Latest Code Status on File) Date Activated Date Inactivated Comments 12/27/2020 6:01 AM 12/29/2020 4:55 PM Healthcare Agents on File Name Relationship Healthcare Agent Relationshi p Communication Sylvia Bearden Spouse Health Care Agent Elijah Bearden Son Alternate Health Care Agent Care Teams Picker Tender Relationship Specialty Start Date End Date Yuri Wilkes [address] [place] [address] dr Antonia Knight, KENDY [address] PCP - General Internal Medicine 12/13/20
--- OUTSIDE RECORDS SUMMARY | 2024-10-26 18:21 | XMS_ITS | Referral Summary ---
Author Organization [facility] Address [address] [place] [address] Care Team Providers Care Resident Service Coordinator Name Role Phone Yuri Wilkes Primary Care Provider [phone] Encounters Date Type Department Care Team Description 08/09/2024 Telephone [facility] [address] [place] [address] Dynamic Etching Processor: Rachele Patino, METAL NUMERICAL CONTROL PROGRAMMER 07/28/2024 Telephone [facility] [address] [place] [address] Dynamic Etching Processor: Preethi Greene Telephone Intake, Staff PAC Patient [...] Not on file Procedures * Due to [place] [employer] law, this organization might not be sharing negative HIV tests. Procedure Name Priority Date/Time Associated Diagnosis Comments AMB EXTERNAL CT CHEST, OUTSIDE RESULT 07/21/2024 COLONOSCOPY 06/21/2009 1:45 PM EST from Last 3 Months or Most Recently Relevant to Health Maintenance Results * Due to [place] state law, this organization might not be [...] Relevant to Health Maintenance Insurance HSNO/FREE CARE [facility] Advance Directives Documents on File Type Date Recorded Patient Floatman Expl anation Health Care Proxy 12/13/2020 10:22 AM * Full Code (Latest Code Status on File) Date Activated Date Inactivated Comments 12/27/2020 6:01 AM 12/29/2020 4:55 PM Healthcare Agents on File Name Relationship Healthcare Agent Relationshi p Communication Sylvia Bearden Spouse Health Care Agent Elijah Bearden [facility] Health Care Agent Care Teams Resident Service Coordinator Relationship Specialty Start Date End Date Yuri Wilkes [address] [place] [address] [place] [address] PCP - General Internal Medicine 12/13/20
--- OUTSIDE RECORDS SUMMARY | 2024-10-26 18:21 | XMS_ITS ---
Author Organization [facility] Address [address] [facility] [place] [address] Care Team Providers Care Grants Director Name Role Phone Chung GONZALES, Yuri Primary Care Provider UnaRodolof Jenkins Unavailable [phone] Encounters Encounter Location Date Provider Diagnosis [address] [address] 06/14/2024 Rodolfo Kaplan Plan Of Treatment Next Appt Details Provider Name:Rodolfo Kaplan , 12/23/2024 02:45:00 PM, [address] [place] [address], [place], [address], Progress Notes * Elijah BEARDENDOB:1955 ( 69 yo M)Acc No.[id number]:06/14/2024 Progress Note Patient:?Elijah BEARDEN Provider:?Rodolfo Kaplan DPM :1955???Age:69 Y???Sex:Male Francis e:06/14/2024 Address:[address] [id number] Pcp:Yuri Wilkes MD Subjective: * Chief Complaints: [...] Kaplan DPM Date:?2023 Generated for Shanon bedoya/Stephanie/Leonor on:?10/26/2024 06:21 PM EDT
--- OUTSIDE RECORDS SUMMARY | 2024-10-26 18:21 | XMS_ITS | Patient Health Record ---
Author [facility] Address [address] [facility] [place] [address] Care Team Providers Care Billing Services Manager Name Role Phone Chung GONZALES, [place] Primary Care Provider Rodolfo Tran Unavailable [phone] Allergies No Known Allergies Results Component Value Reference Range Notes HEMOGLOBIN A1C (GLYCOHEMOGLO BIN) Reviewed date:01/07/2024 01:05:41 PM Interpretation: Performing Lab: Notes/Report: HEMOGLOBIN A1C % (HH) 7.2 HEMOGLOBIN A1C (GLYCOHEMOGLO BIN) Reviewed date:06/24/2024 01:49:22 PM Interpretation: Performing Lab: Notes/Report: TOTAL HEMOGLOBIN (HGBA1C) 7.1 HEMOGLOBIN A1C (GLYCOHEMOGLO BIN) Reviewed date:09/29/2024 03:43:06 PM Interpretation: Performing Lab: Notes/Report: HEMOGLOBIN A1C % (HH) 7.1 Reason For Referral No Information Medications [...] days 01/07/2024 Active Vitamin D3 250 MCG (55907 UT) as directed Orally Active hydroCHLOROthiazide 12.5 [...] Problem Acquired hammer toe of right foot (9249039302981 105) Other hammer toe(s) (acquired), right foot (M20.41) Active confirmed Response to treatment,I mprovement Problem Acquired hammer toe of left foot (5161110186971 103) Other hammer toe(s) (acquired), left foot (M20.42) Active confirmed Response to treatment,I mprovement Problem Type 2 diabetes mellitus with peripheral angiopathy (897187169) Type 2 diabetes mellitus with diabetic peripheral angiopathy without gangrene (E11.51) Active confirmed Q7(A), Q8(2B), Q9(1B,2C) Vital Signs Blood pressure diastolic 86 mm Hg 09/29/2024 Height 5ft 11in in 09/29/2024 Blood pressure systolic 132 mm Hg 09/29/2024 Weight 192 lbs 09/29/2024 BMI 26.78 kg/m2 09/29/2024 Procedures Procedure Date Ordered Date Performed Result Body Sit e 05212-TJUOFZJ NAIL, 1-5 01/07/2024 N/A 06969-UODM SKIN LESIONS, 2 TO 4 01/07/2024 N/A A9211-BAINQPQB DYSTROPHIC NAILS ANY # 01/07/2024 N/A 62898-WOIVTEY NAIL, 1-5 03/18/2024 N/A 86751-UHLR SKIN LESIONS, 2 TO 4 03/18/2024 N/A A4086-HDDLFHKP DYSTROPHIC NAILS ANY # 03/18/2024 N/A 04393-SRWFUOB NAIL, 1-5 06/24/2024 N/A 68361-IODN SKIN LESIONS, 2 TO 4 06/24/2024 N/A T0966-GBKERLFM DYSTROPHIC NAILS ANY # 06/24/2024 N/A 16921-RERNKOJ NAIL, 1-5 09/29/2024 N/A 95276-ZONB SKIN LESIONS, 2 TO 4 09/29/2024 N/A J9296-WRUNPEUS DYSTROPHIC NAILS ANY # 09/29/2024 N/A Encounters Encounter Location Date Provider Diagnosis [address] [address] 01/07/2024 Rodolfo Kapaln Type 2 diabetes mellitus with diabetic peripheral angiopathy without gangrene E11.51 ; Tinea unguium B35.1 ; Pain in right toe(s) M79.674 ; Pain in left toe(s) M79.675 ; Other hammer toe(s) (acquired), right foot M20.41 and Other hammer toe(s) (acquired), left foot M20.[address] [address] 03/18/2024 Rodolfo Kaplan Type 2 diabetes mellitus with diabetic peripheral angiopathy without gangrene E11.51 ; Tinea unguium B35.1 ; Pain in right toe(s) M79.674 and Pain in left toe(s) M79.[address] [address] 06/24/2024 Rodolfo Kaplan Type 2 diabetes mellitus with diabetic peripheral angiopathy without gangrene E11.51 ; Tinea unguium B35.1 ; Pain in right toe(s) M79.674 ; Pain in left toe(s) M79.675 ; Other hammer toe(s) (acquired), right foot M20.41 and Other hammer toe(s) (acquired), left foot M20.[address] [address] 09/29/2024 Rodolfo Kaplan Type 2 diabetes mellitus with diabetic peripheral angiopathy without gangrene E11.51 ; Tinea unguium B35.1 ; Pain in right toe(s) M79.674 and Pain in left toe(s) M79.675 [facility] [address] [address] 06/14/2024 Rodolfo Eusebio Assessments Encounter Date Diagnosis [...] Treatment Pending Test Test Name Order Date 24175-APATZLT NAIL, 1-5 01/07/2024 70668-ZOXGNUP NAIL, 1-5 03/18/2024 35730-URZRENW NAIL, 1-5 06/24/2024 87583-AYVYGYM NAIL, 1-5 09/29/2024 93940-PZDM SKIN LESIONS, 2 TO 4 09/30/19 25 66959-CEPJ SKIN LESIONS, 2 TO 4 06/24/20 24 13451-SHBE SKIN LESIONS, 2 TO 4 01/07/20 24 94943-CREL SKIN LESIONS, 2 TO 4 03/18/20 24 Q2270-ZLXBAQPH DYSTROPHIC NAILS ANY # Y1641-NNQBUKEU DYSTROPHIC NAILS ANY # H0999-KKKUUXIX DYSTROPHIC NAILS ANY # L3868-RBMACNHX DYSTROPHIC NAILS ANY # Next Appt Details Provider Name:Rodolfo Kang Kaplan , 12/23/2024 02:45:00 PM, [address] [facility], [address], [place], [address], Insurance Providers Payer Name Payer Address Payer Phone Subscriber Number Group Number Insured Name Patient Relationship to Insured Coverage Start Date Coverage End Date [facility] [employer] Claims [address] [place] [address] [phone] [facility] [id number] Suleiman, Elijah Self - patient is the [...]
--- OUTSIDE RECORDS SUMMARY | 2024-10-26 18:22 | XMS_ITS | Data Portability ---
Author Organization [employer] Address [address] [place] [address] Care Team Providers Care Silvering Department Supervisor Name Role Phone HIM CCA OTHER ANMOL MARQUEZ Primary Care Provider Assessment Encounter Date Assessment Date Assessment LastModified by Organization Details LastModified Time 02/19/2024 02/19/2024 I have reviewed and agree with the Assessment and Plan as documented by the Electronics Worker. I provided real-time medical direction via phone [...] Assessment and Plan as documented by the Electronics Worker. The patient / given the opportunity to ask questions. Advised if develops CP/severe SOB/turning blue/AMS/ syncope/ hi fever to call 911- she verbalized understanding of instructions to the medic [email or web address] Not available 06/22/2024 13:10:23 07/12/2024 07/12/2024 I have reviewed and agree with the assessment and plan as documented by the traveling nurse. I provided real time medical direction for this encounter and was immediately available to provide additional phone based assistance as needed. History as noted by traveling nurse. Pt with history of hypertension, COPD/asthma, type 2 diabetes mellitus, dementia (Alzheimer's disease), osteoarthritis, and colon CA. 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 [facility] and was diagnosed with a viral URI. He also reports being seen by his armor reconnaissance vehicle driver last week and had labs and a [...] f/u with his primary care team or armor reconnaissance vehicle driver if his symptoms continue to persist despite [...] respiratory specimen 2023 024 DOMENICO Romano - [facility], [address] [place] [address], [phone] 19:02:16 rapid flu (A+B) 2023 024 DOMENICO Main - [facility], [address] [place] [address], [phone] 4 19:02:38 rapid SARS CoV 2 Ag, QL IA, respiratory specimen 2023 024 [email or web address] 0 Main - [facility], [address] [place] [address], [address] 4 13:10:41 rapid flu (A+B) 2023 024 [email or web address] 0 Main - [facility], [address] [place] [address], [address] 4 13:10:41 BMP, serum or plasma 2023 024 [email or web address] 0 Main - [facility], [address] [place] [address], [address] 4 13:10:41 rapid SARS CoV 2 Ag, QL IA, respiratory specimen 2023 024 [facility], [address] [place] [address], [address] 4 12:14:29 rapid flu (A+B) 2023 024 [facility] - [facility], [address] [place] [address], [address] 4 12:14:49 Referral None recorded. Procedures None recorded. Surgeries None recorded. Imaging None recorded. Medication Orders doxycycline monohydrate 100 mg tablet 2024 025 [id number], [address] [place], [address], 5 09:20:59 benzonatate 200 mg capsule 2024 025 [id number], [address] [place], [address], 5 09:20:58 fluticasone propionate 50 mcg/actuati on nasal spray,suspe nsion 2023 024 [id number], [address] [place], [address], 10:22:30 Patient TargetsNo targets recorded. Patient InstructionsNo instructions recorded. Reason for Referral None Reported. Results Created Date Observation Date Name Description Value Unit Range Abnormal Flag Note LastModifiedBy Organization Detail LastModifiedTime 06/22/20 24 06/22/2024 rapid flu (A+B) Flu negati ve Not Available [facility] - [facility] [address] [place] [address], [address] 06/22/2024 11:17:48 06/22/20 24 06/22/2024 rapid SARS CoV 2 Ag, QL IA, respi rator y speci men rapid SARS CoV 2 Ag, QL IA, respiratory specimen negati ve Not Available [facility] - [facility] [address] [place] [address], [address] 06/22/2024 11:17:47 06/22/20 24 06/22/2024 BMP, serum or plasm a Ca 1.33 Not Available Main - [facility] [address] [place] [address], [id number] 06/22/2024 11:18:25 Result Notes None recorded. Medical [...] [degF] 182.88 cm 98 % 98 % 78845.6 g 122 mm[Hg] 82 mm[Hg] Not Available [facility] - production 4 10:19:48 Date Recorded Respiratory rate Body height Oxygen saturation Oxygen saturation in Arterial blood by Pulse oximetry Body weight Heart rate Body temperature Systolic blood pressure Diastolic blood pressure Provider Name and Address Organization Details Last Updated DateTime 4 14 /min 180.34 cm 98 % 98 % 02855.2 56 g 60 /min 98.7 [degF] 144 [...] /min 144 mm[Hg] 82 mm[Hg] Not Available [facility] - production 4 12:56:22 Date Recorded Body temperature Respiratory rate Oxygen saturation Oxygen saturation in Arterial blood by Pulse oximetry Heart rate Systolic blood pressure Diastolic blood pressure Provider Name and Address Organization Details Last Updated DateTime 5 98.1 [degF] 16 /min 95 % 95 % 53 /min 126 mm[Hg] 82 mm[Hg] Not Available [employer] 5 09:13:44 Social History None recorded. Functional Status None recorded. Mental Status None recorded. Family History Nothing Reported. Medical History No medical history recorded. Past Encounters Encounter ID Performer Location Encounter Start Date Encounter Closed Date Diagnosis/Indication Diagnosis SNOMED-CT Code Diagnosis ICD10 Code Diagnosis Note [id number] Reyes Hanna MD Main - [address] [address] 02/19/2024 10:19:45 02/20/2024 12:55:18 Cough 38545645 R05.9 [id number] Sylvia [facility]in [facility] [address] [place] [address] 06/22/2024 10:50:15 06/22/2024 13:52:43 Cough 31116108 R05.9 Advised to continue regular medicines and follow-up with PCP/BMP ordered as requested- results non-concer varun. Calcium is slightly elevated patient is not on any calcium supplement ation per his [id number] REJI RAMOS MD [facility] [address] [place] [address] 07/03/2024 12:56:17 07/06/2024 20:29:08 Viral upper respiratory tract infection 978217847 J06.9 Evaluation in the field was performed by my traveling nurse colleague, as noted above, I provided real-time [...] to tolerate PO or any other concerns. [id number] Skip Tovar MD Main - [facility] [address] [place] [address] 07/12/2024 09:13:40 07/12/2024 14:48:07 Acute bronchitis 34564510 J20.9 Health Concerns Section Related Observation LastModified by Organization Detai ls LastModified Time None Recorded Concern Status LastModified by Organization Details LastModified Time None Recorded Advance Directives Directive None Recorded Payers Encounter Date Sequence Insurance Name Policy Number Policy Arroyo Covered Member ID Arroyo Member ID Guarantor Name 02/19/2024 1 [facility] - DOS ON OR AFTER 2022 - DUAL ELIGIBLE - HALF-WAY OPTIONS AND ONE CARE (MEDICARE REPLACEMENT/ADV ANTAGE - HMO) [id number]/22/2024 1 [facility] - DOS ON OR AFTER 2022 - DUAL ELIGIBLE - HALF-WAY OPTIONS AND ONE CARE (MEDICARE REPLACEMENT/ADV ANTAGE - HMO) Elijah Bearden [id number] Elijah Suleiman 07/03/2024 1 [facility] - DOS ON OR AFTER 2022 - DUAL ELIGIBLE - HALF-WAY OPTIONS AND ONE CARE (MEDICARE REPLACEMENT/ADV ANTAGE - HMO) Elijah Bearden [id number] Elijah Bearden 07/12/2024 1 [facility] - DOS ON OR AFTER 2022 - DUAL ELIGIBLE - HALF-WAY OPTIONS AND ONE CARE (MEDICARE REPLACEMENT/ADV ANTAGE - HMO) Elijah Bearden [id number] Elijah Suleiman Notes Date Note Type Note Provider Name and Address Organization Details Recorded Time 02/19/2024 text/html CRC Nurse Triage Notes (Jennifer Cota): Reason For Request: coughing during nighttime Chief Complaints: Cough PMH: Diabetes, Severe Dementia, Hypertension Allergies: No Known Comments: Graffiti Cleaner verified the member's name//address and phone number. [...] s/s and seek emergency treatment if needed Electronics Worker Organization Information for Adam Duval [facility] Business Legal Name: [employer] Address: [address] [place] [address], [place] Szym[place]ki [address], Corporate Fitness Program Coordinator: César Dominguez MD DEONNA No.: [id number] Electronics Worker POC Test Results from Adam Duval - ALS Rapid COVID antigen (10:16:04) COVID: - Rapid influenza antigen (10:16:05) Flu: - .................... .................... .................... .................... .................... .................... .................... . Electronics Worker Note From Adam Duval: Patient seated in [...] for Covid and flu via rapid POC. [facility] orders Flonase to patient local pharmacy. Care and plan discussed with caregiver, grateful for service and expect to call back in the future. Red flags, patient education discussed. Supportive care, including tea with honey, and use of the Flonase device discussed. .................... .................... .................... .................... .................... .................... .................... . Disposition: Fulfilled Reyes Hanna MD [address] [facility],[address], [place], [address], [employer] 02/19/2024 11:14:41 06/22/2024 text/html HPI: See if [...] was negative. She would like him evaluated. Electronics Worker Organization Information for Ying Raya Legal Name: [employer] ? Address: [address] [place] [address], Corporate Fitness Program Coordinator: Mason Willis MD CLIA No.: [id number] Electronics Worker POC Test Results from Ying Raya iSTAT [...] .................... .................... .................... .................... .................... .................... . Electronics Worker Note From Ying Raya: [facility] makes pt contact after being admitted [...] She consents to evaluation today for the pt.[facility] obtains vital signs and pt is physically assessed. Nothing remarkable is noted upon physical exam. A 21ga butterfly is used to attempt IV cannulation for blood draw in R forearm and is unsuccessful. A second 21ga butterfly is used in the R forearm for blood draw and is successful. Chem 8+ is performed and results are uploaded. [facility] contacts [facility] to discuss the above findings. [facility] requests a rapid COVID and flu in preparation for the CT. Pt's iCal is noted to be high. Rapid COVID and flu are performed and found to be negative. thanks [facility] for coming.[facility] is clear. Report completed by MICHELLE Raya [id number]. [facility] Lab Orders: rapid SARS CoV 2 Ag, QL IA, respiratory specimen: Performed .................... .................... .................... .................... .................... .................... .................... . [facility] Consulted: Sylvia Valentin .................... .................... .................... .................... .................... .................... .................... . Disposition: Fulfilled Sylvia Valentin MD [address] [place] [address],[address], [place], [address], [employer] 06/22/2024 13:10:57 07/03/2024 text/html CRC Nurse Triage [...] Dementia (e.g., Alzheimer's Disease), Osteoarthritis, Cancer Comments: Graffiti Cleaner verified the member's name//address and phone number. [...] s/s and seek emergency treatment if needed. Electronics Worker Organization Information for Nick Oconnell [employer] Legal Name: [employer].? ? Address: [address] [place] [address], Corporate Fitness Program Coordinator: Mason Willis MD CLIA No.: [id number] Electronics Worker POC Test Results from Nick Oconnell - ALS Rapid COVID antigen (12:55:28) COVID: - Attachments uploaded as part of this test result can be found under Documents section. Rapid influenza antigen (12:55:30) Flu: - Attachments uploaded as part of this test result can be found under Documents section. .................... .................... .................... .................... .................... .................... .................... . Electronics Worker Note From Georgehao Nick: Dispatched to above [...] reports he has an appointment with his armor reconnaissance vehicle driver on Friday for this. [facility] contacted, spoke with Dr. Ramos, advised of patient complaints, exam findings and test results. [facility] believes likely URI, recommends continued home care and monitoring and use of home nebulizer tx q6hrs. Patient and advised of [facility] recommendations, home care and red flags. Patient and understand all recommendations. Patient and have no additional questions or concerns at this time. SC8 clear. EOR. .................... .................... .................... .................... .................... .................... .................... . [facility] Consulted: Reji Ramos .................... .................... .................... .................... .................... .................... .................... . Disposition: Fulfilled REJI RAMOS MD [address] [place] [address],[address], [place], [address], [facility] 07/03/2024 21:39:58 07/12/2024 text/html This was a supervised home visit with traveling nurse Benny Meade. [facility] Nurse Triage Notes (Gilberto Gibbons - RN): Reason For Request: Pt's spouse Sylvia a severe cough>mbr was recently seen by [facility] in the last couple weeks> Patient Reports: [...] time of the visit was too late Graffiti Cleaner verified the Pt.'s name//address and phone number. Education provided on the response time and the Pt. was advised to monitor reported s/s and seek emergency treatment if needed. CG reports the pt is feeling unwell with a cough/cold and congestion - Seen by [facility] on 07/03 - S/S are not improving - Seen by armor reconnaissance vehicle driver with a negative chest x-ray -Taking over [...] .................... .................... .................... .................... .................... .................... . Electronics Worker Note From Benny Meade: This visit is [...] The white states the patient saw his armor reconnaissance vehicle driver last week and had a negative chest [...] .................... .................... .................... .................... .................... .................... . [facility] Consulted: Skip Tovar .................... .................... .................... .................... .................... .................... .................... . Disposition: Fulfilled Skip Tovar MD [address] [facility],[address], [place], [address], [facility] 07/12/2024 12:21:45
--- OUTSIDE RECORDS SUMMARY | 2024-10-26 18:22 | XMS_ITS ---
Author Organization [facility] Address [address] [facility] [place] [address] Care Team Providers Care Senior Director Creative Services Name Role Phone Chung GONZALES [place] Primary Care Provider Rodolfo Tran Unavailable [phone] Allergies No Known Allergies REASON FOR VISIT [...] days 01/07/2024 Active Vitamin D3 250 MCG (61059 UT) as directed Orally Active hydroCHLOROthiazide 12.5 [...] Ordered Date Performed Result Body Sit e 09355-PVADTYE NAIL, 1-5 09/29/2024 N/A 91190-ZWZU SKIN LESIONS, 2 TO 4 09/29/2024 N/A V7144-OBOIMLUE DYSTROPHIC NAILS ANY # 09/29/2024 N/A Encounters Encounter Location Date Provider Diagnosis [facility] [address] [address] 09/29/2024 Rodolfo Kaplan Type 2 diabetes mellitus [...] Treatment Pending Test Test Name Order Date 67077-ZKWRUMF NAIL, 1-5 09/29/2024 81744-WDGO SKIN LESIONS, 2 TO 4 09/30/19 25 M3564-IKZQNFRS DYSTROPHIC NAILS ANY # Next Appt Details Follow Up: 2 Months, Reason: Provider Name:Rodolfo Kaplan , 12/23/2024 02:45:00 PM, [address], [place], [address], Procedure Notes * Category Sub-Category [...] instrumentation by the physician of record - 70407, Q8 Debride Nails 1-5 Procedure: Due to [...] necessary to maintain effective symptomatic relief - 77126 Nail Reduction Nail Reduction (-27) Trimming o [...] * Elijah BEARDENDOB:1955 ( 69 yo M)Acc No.[id number]:09/29/2024 Progress Note Patient:?Elijah BEARDEN Provider:?Rodolfo Kaplan DPM :1955???Age:69 Y???Sex:Male Francis e:09/29/2024 Address:[address] [place] [address] Roseann Velázquez, [phone] Pcp:Yuri Wilkes MD Subjective: * Chief Complaints: [...] Once a day Vitamin D3 250 MCG (94191 UT) Tablet as directed Orally Extra Depth [...] a day Taking Vitamin D3 250 MCG (34817 UT) Tablet as directed Orally Taking Extra [...] - M79.675??? Plan: * Treatment: 2.?Tinea unguium?Procedure: 35621-RDFMHGE NAIL, 1-5 * Procedures:?Debride Nails 1-5:?Procedure:?Due to [...] necessary to maintain effective symptomatic relief - 06088.?Keratoma Treatment:?Parring or Cutting of Benign Hyperkeratotic Lesion(s)?(-56) [...] instrumentation by the physician of record - 72299, Q8.?Nail Reduction:?Nail Reduction?(-27) Trimming of all dystrophic [...] DYSTROPHIC NAILS ANY #, Modifiers: XS , [id number] DEBRIDE NAIL, 1-5, Modifiers: XS 80197 TRIM SKIN LESIONS, 2 TO 4, Modifiers: XS , Q8 * Follow Up:?2 Months * Images: * Sign off status: Completed true * Provider:?Rodolfo Kaplan DPM Date:?2024 Generated for Shanon bedoya/Stephanie/Leonor on:?10/26/2024 06:21 PM EDT History and Physical Notes * HPI (History of Present Illness) Category Sub-Category Detail Notes Category Not es At Risk footcare Pt States Last PCP Visit: Date: 07/22/2024 States has an appt with PCP - 12/02 [facility] Patient accompanied by, , SYLVIA, who is [...]
--- OUTSIDE RECORDS SUMMARY | 2024-10-26 18:22 | XMS_ITS ---
Author Organization [facility] Address [address] [facility] [place] [address] Care Team Providers Care Electrification Adviser Name Role Phone Chung GONZALES, [place] Primary Care Provider Rodolfo Tran Unavailable [phone] Allergies No Known Allergies REASON FOR VISIT [...] a day Active Vitamin D3 250 MCG (95618 UT) as directed Orally Active Extra Depth [...] Ordered Date Performed Result Body Sit e 43365-IDCRPJE NAIL, 1-5 06/24/2024 N/A 99475-CEOD SKIN LESIONS, 2 TO 4 06/24/2024 N/A N4489-WNZSAFGV DYSTROPHIC NAILS ANY # 06/24/2024 N/A Encounters Encounter Location Date Provider Diagnosis [facility] [address] [address] 06/24/2024 Rodolfo Kaplan Type 2 diabetes mellitus [...] Treatment Pending Test Test Name Order Date 75381-NJVFLZG NAIL, 1-5 06/24/2024 49977-ZVQA SKIN LESIONS, 2 TO 4 06/24/20 24 E3535-AJAWPPTC DYSTROPHIC NAILS ANY # Next Appt Details Follow Up: 2 Months, Reason: Provider Name:Rodolfo Kaplan , 12/23/2024 02:45:00 PM, [address], [address], [place], [address], Procedure Notes * Category Sub-Category Detail Notes [...] instrumentation by the physician of record - 70747, Q8 Debride Nails 1-5 Procedure: Due to [...] necessary to maintain effective symptomatic relief - 09500 Nail Reduction Nail Reduction (-27) Trimming o [...] * Domenic BEARDENjostinDOB:1955 ( 69 yo M)Acc No.[id number]:06/24/2024 Progress Note Patient:?Domenic BEARDENito Provider:?Rodolfo Kaplan DPM :1955???Age:69 Y???Sex:Male Francis e:06/24/2024 Address:[address] [place], [place] [phone] Pcp:Yuri Wilkes MD Subjective: * Chief Complaints: [...] Once a day Vitamin D3 250 MCG (40671 UT) Tablet as directed Orally Extra Depth [...] a day Taking Vitamin D3 250 MCG (45495 UT) Tablet as directed Orally Taking Extra [...] to treatment,Improvement??? Plan: * Treatment: 2.?Tinea unguium?Procedure: 61093-JQBCQGZ NAIL, 1-5 * Procedures:?Debride Nails 1-5:?Procedure:?Due to [...] necessary to maintain effective symptomatic relief - 66095.?Keratoma Treatment:?Parring or Cutting of Benign Hyperkeratotic Lesion(s)?(-56) [...] instrumentation by the physician of record - 99354, Q8.?Nail Reduction:?Nail Reduction?(-27) Trimming of all dystrophic [...] DYSTROPHIC NAILS ANY #, Modifiers: XS , [id number] DEBRIDE NAIL, 1-5, Modifiers: XS 69621 TRIM SKIN LESIONS, 2 TO 4, Modifiers: [...] Kaplan DPM Date:?2023 Generated for Shanon bedoya/Stephanie/eTransmitting on:?10/26/2024 06:21 PM EDT History and Physical [...]
== END 2024-10-26 16:32 | disposition home or self-care (01) ==
LOC: HO.HPSW 15:29
PROVIDERS: PCP Internal Medicine; Visit Provider Nurse Practitioner Family
DX: R05.9 Cough, unspecified (principal); F03.90 Unspecified dementia, unspecified severity, without behavioral disturbance, psychotic disturbance, mood disturbance, and anxiety
CPT/HCPCS: 99214

== ENCOUNTER → 2024-10-26 15:29 | Outpatient (BNVA) | payer OTHER, SELFPAY | PROVIDERS: PCP Internal Medicine; Visit Provider Nurse Practitioner Family | DX: R05.9 Cough, unspecified (principal); F03.90 Unspecified dementia, unspecified severity, without behavioral disturbance, psychotic disturbance, mood disturbance, and anxiety | CPT/HCPCS: 99212 ==

== ENCOUNTER 2024-10-28 12:50 | Outpatient (REF) | payer OTHER, SELFPAY ==
--- NOTE | ~2024-10-28 | XR_ITS ---
EXAMINATION: XR CHEST 2 VIEWS HISTORY: R05.9 - Cough, unspecified COMPARISON: Comparison is made with the prior examination dated 07/05/2024. FINDINGS: PA and lateral views of the chest are submitted. The patient's chin overlies the right lung apex. The lungs are expanded and clear. There is no pleural effusion, pneumothorax, or pulmonary vascular congestion. The heart is normal in size. There is degenerative disc disease of the spine. XR/XR chest 2V IMPRESSION: No acute cardiopulmonary abnormality. Electronically signed by: Ashkan Romero MD 10/29/2024 10:04 AM EDT
--- OUTSIDE RECORDS SUMMARY | 2024-10-28 15:07 | XMS_ITS | Patient Health Record ---
Author Organization [facility] Address [address] [facility] [place] [address] Care Team Providers Care Food Services Coordinator Name Role Phone Chung GONZALES, [place] Primary Care Provider Rodolfo Tran Unavailable [phone] Allergies No Known Allergies Results Component Value [...] days 01/07/2024 Active Vitamin D3 250 MCG (71679 UT) as directed Orally Active hydroCHLOROthiazide 12.5 [...] Problem Acquired hammer toe of right foot (9665655116875 105) Other hammer toe(s) (acquired), right foot (M20.41) Active confirmed Response to treatment,I mprovement Problem Acquired hammer toe of left foot (5551887846882 103) Other hammer toe(s) (acquired), left foot (M20.42) Active confirmed Response to treatment,I mprovement Problem Type 2 diabetes mellitus with peripheral angiopathy (159122398) Type 2 diabetes mellitus with diabetic peripheral angiopathy without gangrene (E11.51) Active confirmed Q7(A), Q8(2B), Q9(1B,2C) Vital Signs Blood pressure diastolic 86 mm Hg 09/29/2024 Height 5ft 11in in 09/29/2024 Blood pressure systolic 132 mm Hg 09/29/2024 Weight 192 lbs 09/29/2024 BMI 26.78 kg/m2 09/29/2024 Procedures Procedure Date Ordered Date Performed Result Body Sit e 35379-JSDCVDH NAIL, 1-5 01/07/2024 N/A 54080-DNGU SKIN LESIONS, 2 TO 4 01/07/2024 N/A J2823-YDKYJYLI DYSTROPHIC NAILS ANY # 01/07/2024 N/A 72418-GNJZOVN NAIL, 1-5 03/18/2024 N/A 38402-OCIP SKIN LESIONS, 2 TO 4 03/18/2024 N/A L3337-DRVOTOZZ DYSTROPHIC NAILS ANY # 03/18/2024 N/A 66679-OCGYLRL NAIL, 1-5 06/24/2024 N/A 67175-HOYC SKIN LESIONS, 2 TO 4 06/24/2024 N/A R5810-PLHIRLYD DYSTROPHIC NAILS ANY # 06/24/2024 N/A 23226-ESGXDNP NAIL, 1-5 09/29/2024 N/A 64707-DTAN SKIN LESIONS, 2 TO 4 09/29/2024 N/A O3083-AACSPFUJ DYSTROPHIC NAILS ANY # 09/29/2024 N/A Encounters Encounter Location Date Provider Diagnosis [address] [address] 01/07/2024 Rodolfo Kaplan Type 2 diabetes mellitus with diabetic peripheral angiopathy without gangrene E11.51 ; Tinea unguium B35.1 ; Pain in right toe(s) M79.674 ; Pain in left toe(s) M79.675 ; Other hammer toe(s) (acquired), right foot M20.41 and Other hammer toe(s) (acquired), left foot M20.[address] [address] 03/18/2024 Rodolfo Kaplan Type 2 diabetes mellitus with diabetic peripheral angiopathy without gangrene E11.51 ; Tinea unguium B35.1 ; Pain in right toe(s) M79.674 and Pain in left toe(s) M79.[address] [address] 06/24/2024 Rodolfo Kaplan Type 2 diabetes mellitus with diabetic peripheral angiopathy without gangrene E11.51 ; Tinea unguium B35.1 ; Pain in right toe(s) M79.674 ; Pain in left toe(s) M79.675 ; Other hammer toe(s) (acquired), right foot M20.41 and Other hammer toe(s) (acquired), left foot M20.[address] [address] 09/29/2024 Rodolfo Kaplan Type 2 diabetes mellitus with diabetic peripheral angiopathy without gangrene E11.51 ; Tinea unguium B35.1 ; Pain in right toe(s) M79.674 and Pain in left toe(s) M79.675 [facility] [address] [address] 06/14/2024 Rodolfo Eusebio Assessments Encounter Date Diagnosis [...] Treatment Pending Test Test Name Order Date 37583-KEIHHTJ NAIL, 1-5 01/07/2024 71436-ZVJMSTV NAIL, 1-5 03/18/2024 83192-ETVRHFH NAIL, 1-5 06/24/2024 97833-EZREVHA NAIL, 1-5 09/29/2024 62796-NUXD SKIN LESIONS, 2 TO 4 09/30/19 25 72195-OEOI SKIN LESIONS, 2 TO 4 06/24/20 24 56612-FMZS SKIN LESIONS, 2 TO 4 01/07/20 24 35088-ZGBQ SKIN LESIONS, 2 TO 4 03/18/20 24 K3224-DKWTAVQA DYSTROPHIC NAILS ANY # N6853-XNIYYMTF DYSTROPHIC NAILS ANY # T5092-XCIVGPWL DYSTROPHIC NAILS ANY # X0064-PLWYWVLR DYSTROPHIC NAILS ANY # Next Appt Details Provider Name:Rodolfo Kang Kaplan , 12/23/2024 02:45:00 PM, [address] [facility], [address], [place], [address], Insurance Providers Payer Name Payer Address Payer Phone Subscriber Number Group Number Insured Name Patient Relationship to Insured Coverage Start Date Coverage End Date [facility] [employer] Claims [address] [place] [phone] [facility] [id number] Suleiman, Elijah Self - patient is the [...]
--- OUTSIDE RECORDS SUMMARY | 2024-10-28 15:08 | XMS_ITS ---
Author Organization [facility] Address [address] [facility] [place] [address] Care Team Providers Care Lining Printer Name Role Phone Chung GONZALES [place] Primary Care Provider Rodolfo Tran Unavailable [phone] Allergies No Known Allergies REASON FOR VISIT [...] days 01/07/2024 Active Vitamin D3 250 MCG (02226 UT) as directed Orally Active hydroCHLOROthiazide 12.5 [...] Ordered Date Performed Result Body Sit e 92552-RAJOQVT NAIL, 1-5 09/29/2024 N/A 74375-QRKD SKIN LESIONS, 2 TO 4 09/29/2024 N/A X6947-JWKVDAQB DYSTROPHIC NAILS ANY # 09/29/2024 N/A Encounters Encounter Location Date Provider Diagnosis [facility] [address] [address] 09/29/2024 Rodolfo Kaplan Type 2 diabetes mellitus [...] Treatment Pending Test Test Name Order Date 73598-EEDQCTB NAIL, 1-5 09/29/2024 82097-LKHU SKIN LESIONS, 2 TO 4 09/30/19 25 U9118-NLRPSLVL DYSTROPHIC NAILS ANY # Next Appt Details Follow Up: 2 Months, Reason: Provider Name:Rodolfo Kaplan , 12/23/2024 02:45:00 PM, [address], [place], [address], Procedure Notes * Category Sub-Category [...] instrumentation by the physician of record - 42857, Q8 Debride Nails 1-5 Procedure: Due to [...] necessary to maintain effective symptomatic relief - 07543 Nail Reduction Nail Reduction (-27) Trimming o [...] * Elijah BEARDENDOB:1955 ( 69 yo M)Acc No.[id number]:09/29/2024 Progress Note Patient:?Elijah BEARDEN Provider:?Rodolfo Kaplan DPM :1955???Age:69 Y???Sex:Male Francis e:09/29/2024 Address:[address] [place] [address] Roseann Velázquez, [phone] Pcp:Yuri Wilkes MD Subjective: * Chief Complaints: [...] Once a day Vitamin D3 250 MCG (15925 UT) Tablet as directed Orally Extra Depth [...] a day Taking Vitamin D3 250 MCG (04134 UT) Tablet as directed Orally Taking Extra [...] - M79.675??? Plan: * Treatment: 2.?Tinea unguium?Procedure: 10944-PHGKVPC NAIL, 1-5 * Procedures:?Debride Nails 1-5:?Procedure:?Due to [...] necessary to maintain effective symptomatic relief - 17590.?Keratoma Treatment:?Parring or Cutting of Benign Hyperkeratotic Lesion(s)?(-56) [...] instrumentation by the physician of record - 10813, Q8.?Nail Reduction:?Nail Reduction?(-27) Trimming of all dystrophic [...] DYSTROPHIC NAILS ANY #, Modifiers: XS , H137656 DEBRIDE NAIL, 1-5, Modifiers: XS 67544 TRIM SKIN LESIONS, 2 TO 4, Modifiers: XS , Q8 * Follow Up:?2 Months * Images: * Sign off status: Completed true * Provider:?Rodolfo Kaplan DPM Date:?2024 Generated for Shanon bedoya/Stephanie/Leonor on:?10/28/2024 03:08 PM EDT History and Physical Notes * HPI (History of Present Illness) Category Sub-Category Detail Notes Category Not es At Risk footcare Pt States Last PCP Visit: Date: 07/22/2024 States has an appt with PCP - 12/02 [facility] Patient accompanied by, , SYLVIA, who is [...]
--- OUTSIDE RECORDS SUMMARY | 2024-10-28 15:08 | XMS_ITS | Data Portability ---
Author Organization [facility] Address [address] [place] [address] Care Team Providers Care Systems Support Specialist Name Role Phone HIM CCA OTHER ANMOL MARQUEZ Primary Care Provider Assessment Encounter Date Assessment Date Assessment LastModified by Organization Details LastModified Time 02/19/2024 02/19/2024 I have reviewed and agree with the Assessment and Plan as documented by the General Ii Farmworker. I provided real-time medical direction via phone [...] Assessment and Plan as documented by the General Ii Farmworker. The patient / given the opportunity to ask questions. Advised if develops CP/severe SOB/turning blue/AMS/ syncope/ hi fever to call 911- she verbalized understanding of instructions to the medic Not available 06/22/2024 13:10:23 07/12/2024 07/12/2024 I have reviewed and agree with the assessment and plan as documented by the experimental rocket sled mechanic. I provided real time medical direction for this encounter and was immediately available to provide additional phone based assistance as needed. History as noted by experimental rocket sled mechanic. Pt with history of hypertension, COPD/asthma, type 2 diabetes mellitus, dementia (Alzheimer's disease), osteoarthritis, and colon CA. 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 [facility] was diagnosed with a viral URI. He also reports being seen by his presetter operator last week and had labs and a [...] f/u with his primary care team or presetter operator if his symptoms continue to persist despite [...] respiratory specimen 2023 024 DOMENICO Romano - [facility], [address] [place] [address], [phone] 19:02:16 rapid flu (A+B) 2023 024 DOMENICO [facility] - [facility], [address] [place] [address], [address] 4 19:02:38 rapid SARS CoV 2 Ag, QL IA, respiratory specimen 2023 024 [email or web address] 0 Main - [facility], [address] [place] [address], [address] 4 13:10:41 rapid flu (A+B) 2023 024 [email or web address] 0 Main - [facility], [address] [place] [address], [address] 4 13:10:41 BMP, serum or plasma 2023 024 [email or web address] 0 Main - [facility], [address] [place] [address], [address] 4 13:10:41 rapid SARS CoV 2 Ag, QL IA, respiratory specimen 2023 024 [facility] [address] [place] [address], [address] 4 12:14:29 rapid flu (A+B) 2023 024 [facility] - [facility], [address] [place] [address], [address] 4 12:14:49 Referral None recorded. Procedures None recorded. Surgeries None recorded. Imaging None recorded. Medication Orders doxycycline monohydrate 100 mg tablet 2024 025 [id number], [address] [place], [address], 5 09:20:59 benzonatate 200 mg capsule 2024 025 [facility], [address] [place], [address], 5 09:20:58 fluticasone propionate 50 mcg/actuati on nasal spray,suspe nsion 2023 024 [facility], [address] [place], [address], 10:22:30 Patient TargetsNo targets recorded. Patient InstructionsNo instructions recorded. Reason for Referral None Reported. Results Created Date Observation Date Name Description Value Unit Range Abnormal Flag Note LastModifiedBy Organization Detail LastModifiedTime 06/22/20 24 06/22/2024 rapid flu (A+B) Flu negati ve Not Available [facility] [address] [place] [address], [phone] 06/22/2024 11:17:48 06/22/20 24 06/22/2024 rapid SARS CoV 2 Ag, QL IA, respi rator y speci men rapid SARS CoV 2 Ag, QL IA, respiratory specimen negati ve Not Available [facility] [address] [place] [address], [address] 06/22/2024 11:17:47 06/22/20 24 06/22/2024 BMP, serum or plasm a Ca 1.33 Not Available [facility] - [facility] [address] [place] [address], [address] 06/22/2024 11:18:25 Result Notes None recorded. Medical [...] [degF] 182.88 cm 98 % 98 % 99674.6 g 122 mm[Hg] 82 mm[Hg] Not Available [facility] [employer] 4 10:19:48 Date Recorded Respiratory rate Body height Oxygen saturation Oxygen saturation in Arterial blood by Pulse oximetry Body weight Heart rate Body temperature Systolic blood pressure Diastolic blood pressure Provider Name and Address Organization Details Last Updated DateTime 4 14 /min 180.34 cm 98 % 98 % 43855.2 56 g 60 /min 98.7 [degF] 144 [...] /min 144 mm[Hg] 82 mm[Hg] Not Available [employer] 4 12:56:22 Date Recorded Body temperature Respiratory rate Oxygen saturation Oxygen saturation in Arterial blood by Pulse oximetry Heart rate Systolic blood pressure Diastolic blood pressure Provider Name and Address Organization Details Last Updated DateTime 5 98.1 [degF] 16 /min 95 % 95 % 53 /min 126 mm[Hg] 82 mm[Hg] Not Available [employer] 5 09:13:44 Social History None recorded. Functional Status None recorded. Mental Status None recorded. Family History Nothing Reported. Medical History No medical history recorded. Past Encounters Encounter ID Performer Location Encounter Start Date Encounter Closed Date Diagnosis/Indication Diagnosis SNOMED-CT Code Diagnosis ICD10 Code Diagnosis Note [id number] Reyes Hanna MD Main - [address] [address] 02/19/2024 10:19:45 02/20/2024 12:55:18 Cough 20884146 R05.9 [id number] [facility] [address] [place] [address] 06/22/2024 10:50:15 06/22/2024 13:52:43 Cough 47546213 R05.9 Advised to continue regular medicines and follow-up with PCP/BMP ordered as requested- results non-concer varun. Calcium is slightly elevated patient is not on any calcium supplement ation per his [id number] REJI RAMOS [facility] [address] [place] [phone] 07/03/2024 12:56:17 07/06/2024 20:29:08 Viral upper respiratory tract infection 901237821 J06.9 Evaluation in the field was performed by my experimental rocket sled mechanic colleague, as noted above, I provided real-time [...] to tolerate PO or any other concerns. [id number] Skip Tovar MD Main - [facility] [address] [place] [address] 07/12/2024 09:13:40 07/12/2024 14:48:07 Acute bronchitis 14524748 J20.9 Health Concerns Section Related Observation LastModified by Organization Detai ls LastModified Time None Recorded Concern Status LastModified by Organization Details LastModified Time None Recorded Advance Directives Directive None Recorded Payers Encounter Date Sequence Insurance Name Policy Number Policy Arroyo Covered Member ID Arroyo Member ID Guarantor Name 02/19/2024 1 [facility] - DOS ON OR AFTER 2022 - DUAL ELIGIBLE - CARE HOME OPTIONS AND ONE CARE (MEDICARE REPLACEMENT/ADV ANTAGE - HMO) [facility]arden [id number] [facility] 06/22/2024 1 [facility] - DOS ON OR AFTER 2022 - DUAL ELIGIBLE - CARE HOME OPTIONS AND ONE CARE (MEDICARE REPLACEMENT/ADV ANTAGE - HMO) Elijah Bearden [id number] Elijah Suleiman 07/03/2024 1 [facility] - DOS ON OR AFTER 2022 - DUAL ELIGIBLE - CARE HOME OPTIONS AND ONE CARE (MEDICARE REPLACEMENT/ADV ANTAGE - HMO) Elijah Bearden [id number] Elijah Bearden 07/12/2024 1 [facility] - DOS ON OR AFTER 2022 - DUAL ELIGIBLE - CARE HOME OPTIONS AND ONE CARE (MEDICARE REPLACEMENT/ADV ANTAGE - HMO) Elijah Bearden [id number] Elijah Suleiman Notes Date Note Type Note Provider Name and Address Organization Details Recorded Time 02/19/2024 text/html [facility] Nurse Triage Notes (Jennifer Cota): Reason For Request: coughing during nighttime Chief Complaints: Cough PMH: Diabetes, Severe Dementia, Hypertension Allergies: No Known Comments: Sheet Metal Shop Helper verified the member's name//address and phone number. [...] s/s and seek emergency treatment if needed General Ii Farmworker Organization Information for Adam Duval ALS Business Legal Name: [employer] Address: [address] [place] [address], [place] [address], Silvering Applicator: César Dominguez MD DEONNA No.: [id number] General Ii Farmworker POC Test Results from Adam Duval - ALS Rapid COVID antigen (10:16:04) COVID: - Rapid influenza antigen (10:16:05) Flu: - .................... .................... .................... .................... .................... .................... .................... . General Ii Farmworker Note From Adam Duval: Patient seated in [...] for Covid and flu via rapid POC. [facility] orders Flonase to patient local pharmacy. Care and plan discussed with caregiver, grateful for service and expect to call back in the future. Red flags, patient education discussed. Supportive care, including tea with honey, and use of the Flonase device discussed. .................... .................... .................... .................... .................... .................... .................... . Disposition: Fulfilled Reyes Hanna MD [address] [facility],[address], [place], [address], [facility] 02/19/2024 11:14:41 06/22/2024 text/html HPI: See if [...] was negative. She would like him evaluated. General Ii Farmworker Organization Information for Ying Raya Legal Name: [employer] ? Address: [address] [place] [address], Silvering Applicator: Mason Willis MD CLIA No.: [id number] General Ii Farmworker POC Test Results from Ying Raya iSTAT [...] .................... .................... .................... .................... .................... .................... . General Ii Farmworker Note From Ying Raya: [facility] makes pt contact after being admitted [...] She consents to evaluation today for the pt.[facility] obtains vital signs and pt is physically assessed. Nothing remarkable is noted upon physical exam. A 21ga butterfly is used to attempt IV cannulation for blood draw in R forearm and is unsuccessful. A second 21ga butterfly is used in the R forearm for blood draw and is successful. Chem 8+ is performed and results are uploaded. [facility] contacts [facility] to discuss the above findings. [facility] requests a rapid COVID and flu in preparation for the CT. Pt's iCal is noted to be high. Rapid COVID and flu are performed and found to be negative. thanks [facility] for coming.[facility] is clear. Report completed by MICHELLE Raya [id number]. [facility] Lab Orders: rapid SARS CoV 2 Ag, QL IA, respiratory specimen: Performed .................... .................... .................... .................... .................... .................... .................... . [facility] Consulted: Sylvia Valentin .................... .................... .................... .................... .................... .................... .................... . Disposition: Fulfilled Sylvia Valentin MD [address] [place] [address],[address], [place], [address], [facility] 06/22/2024 13:10:57 07/03/2024 text/html CRC Nurse Triage [...] Dementia (e.g., Alzheimer's Disease), Osteoarthritis, Cancer Comments: Sheet Metal Shop Helper verified the member's name//address and phone number. [...] s/s and seek emergency treatment if needed. General Ii Farmworker Organization Information for Nick Oconnell [employer] Legal Name: [employer].? ? Address: [address] [place] [address], Silvering Applicator: Mason Willis MD CLIA No.: [id number] General Ii Farmworker POC Test Results from Nick Oconnell - ALS Rapid COVID antigen (12:55:28) COVID: - Attachments uploaded as part of this test result can be found under Documents section. Rapid influenza antigen (12:55:30) Flu: - Attachments uploaded as part of this test result can be found under Documents section. .................... .................... .................... .................... .................... .................... .................... . General Ii Farmworker Note From Georgehao Nick: Dispatched to above [...] reports he has an appointment with his presetter operator on Friday for this. [facility] contacted, spoke with Dr. Ramos, advised of patient complaints, exam findings and test results. [facility] believes likely URI, recommends continued home care and monitoring and use of home nebulizer tx q6hrs. Patient and advised of [facility] recommendations, home care and red flags. Patient and understand all recommendations. Patient and have no additional questions or concerns at this time. SC8 clear. EOR. .................... .................... .................... .................... .................... .................... .................... . [facility] Consulted: Reij Ramos .................... .................... .................... .................... .................... .................... .................... . Disposition: Fulfilled REJI RAMOS MD [address] [place] [address],[address], [place], [address], [facility] [employer] [facility] 07/03/2024 21:39:58 07/12/2024 text/html This was a supervised home visit with experimental rocket sled mechanic Benny Meade. [facility] Nurse Triage Notes (Gilberto Gibbons - RN): Reason For Request: Pt's spouse Sylvia a severe cough>mbr was recently seen by [facility] in the last couple weeks> Patient Reports: [...] time of the visit was too late Sheet Metal Shop Helper verified the Pt.'s name//address and phone number. Education provided on the response time and the Pt. was advised to monitor reported s/s and seek emergency treatment if needed. CG reports the pt is feeling unwell with a cough/cold and congestion - Seen by [facility] on 07/03 - S/S are not improving - Seen by presetter operator with a negative chest x-ray -Taking over [...] .................... .................... .................... .................... .................... .................... . General Ii Farmworker Note From Benny Meade: This visit is [...] The white states the patient saw his presetter operator last week and had a negative chest [...] .................... .................... .................... .................... .................... .................... . [facility] Consulted: Skip Tovar .................... .................... .................... .................... .................... .................... .................... . Disposition: Fulfilled Skip Tovar MD [address] [facility],[address], [place], [address], BLOSSOM RIOS 07/12/2024 12:21:45
--- OUTSIDE RECORDS SUMMARY | 2024-10-28 15:08 | XMS_ITS ---
Author Organization [facility] Address [address] [facility] [place] [address] Care Team Providers Care Rn Mds Coordinator Name Role Phone Chung GONZALES, Hope Primary Care Provider Rodolfo Tran Unavailable [phone] Allergies No Known Allergies REASON FOR VISIT [...] a day Active Vitamin D3 250 MCG (22740 UT) as directed Orally Active Extra Depth [...] Ordered Date Performed Result Body Sit e 43291-YFOUELI NAIL, 1-5 06/24/2024 N/A 09969-HLPA SKIN LESIONS, 2 TO 4 06/24/2024 N/A [id number] DYSTROPHIC NAILS ANY # 06/24/2024 N/A Encounters Encounter Location Date Provider Diagnosis [facility] [address] [address] 06/24/2024 Rodolfo Kaplan Type 2 diabetes mellitus [...] Treatment Pending Test Test Name Order Date [id number]-CWPJIOT NAIL, 1-5 06/24/2024 47842-ZRFN SKIN LESIONS, 2 TO 4 06/24/20 24 [id number]-EOQYMGRP DYSTROPHIC NAILS ANY # Next Appt Details Follow Up: 2 Months, Reason: Provider Name:Rodolfo Kaplan , 12/23/2024 02:45:00 PM, [address], [address], [place], [address], Procedure Notes * Category Sub-Category Detail Notes [...] instrumentation by the physician of record - 27581, Q8 Debride Nails 1-5 Procedure: Due to [...] necessary to maintain effective symptomatic relief - 87753 Nail Reduction Nail Reduction (-27) Trimming o [...] * Domenic BEARDENjostinDOB:1955 ( 69 yo M)Acc No.[id number]:06/24/2024 Progress Note Patient:?Domenic BEARDENito Provider:?Rodolfo Kaplan DPM :1955???Age:69 Y???Sex:Male Francis e:06/24/2024 Address:[address] [place], [place] [id number] Pcp:Yuri Wilkes MD Subjective: * Chief Complaints: [...] Once a day Vitamin D3 250 MCG (66396 UT) Tablet as directed Orally Extra Depth [...] a day Taking Vitamin D3 250 MCG (03292 UT) Tablet as directed Orally Taking Extra [...] to treatment,Improvement??? Plan: * Treatment: 2.?Tinea unguium?Procedure: 36768-QXPISTA NAIL, 1-5 * Procedures:?Debride Nails 1-5:?Procedure:?Due to [...] necessary to maintain effective symptomatic relief - 80826.?Keratoma Treatment:?Parring or Cutting of Benign Hyperkeratotic Lesion(s)?(-56) [...] instrumentation by the physician of record - 17475, Q8.?Nail Reduction:?Nail Reduction?(-27) Trimming of all dystrophic [...] DYSTROPHIC NAILS ANY #, Modifiers: XS , [id number] DEBRIDE NAIL, 1-5, Modifiers: XS 22749 TRIM SKIN LESIONS, 2 TO 4, Modifiers: [...] Kaplan DPM Date:?2023 Generated for Shanon bedoya/Stephanie/eTransmitting on:?10/28/2024 03:08 PM EDT History and Physical [...]
--- OUTSIDE RECORDS SUMMARY | 2024-10-28 15:08 | XMS_ITS ---
Author Organization [facility] Address [address] [facility] [place] [address] Care Team Providers Care Food Aide Name Role Phone Chung GONZALES, Yuri Primary Care Provider UnaRodolfo Jenkins Unavailable [phone] Encounters Encounter Location Date Provider Diagnosis [address] [address] 06/14/2024 Rodolfo Kaplan Plan Of Treatment Next Appt Details Provider Name:Rodolfo Kaplan , 12/23/2024 02:45:00 PM, [address] [place] [address], [place], [address], Progress Notes * Elijah BEARDENDOB:1955 ( 69 yo M)Acc No.[id number]:06/14/2024 Progress Note Patient:?Elijah BEARDEN Provider:?Rodolfo Kaplan DPM :1955???Age:69 Y???Sex:Male Francis e:06/14/2024 Address[address] [phone] Pcp:Yuri Wilkes MD Subjective: * Chief Complaints: [...] Kaplan DPM Date:?2023 Generated for Shanon bedoya/Stephanie/Leonor on:?10/28/2024 03:08 PM EDT
== END 2024-10-28 12:51 | disposition home or self-care (01) ==
LOC: HO.XRAY 12:50
PROVIDERS: PCP Internal Medicine; Visit Provider Nurse Practitioner Family
DX: R05.9 Cough, unspecified (principal)
CPT/HCPCS: 71046

== ENCOUNTER → 2024-10-28 12:54 | Outpatient (BNV) | payer OTHER, SELFPAY | PROVIDERS: PCP Internal Medicine; Visit Provider Radiology Diagnostic Radiology | DX: R05.9 Cough, unspecified (principal) | CPT/HCPCS: 71046 ==

== ENCOUNTER 2024-12-01 07:34 | Outpatient (REF) | payer OTHER, SELFPAY ==
--- OUTSIDE RECORDS SUMMARY | 2024-12-01 07:36 | XMS_ITS | Clinical Summary ---
Author Organization [facility] Address [address] [place] [address] Care Team Providers Care External Relations Manager Name Role Phone ChungYuri Primary Care Provider [phone] Allergies Active Allergy Reactions Criticality Noted Date [...] 07/07/2024 Health Care Proxy Review 07/07/2024 Social Drivers of Health Annual Screening 07/07/2024 RSV Vaccine [...] complete this topic Procedures * Due to [place] [employer] Monitoring law, this organization might not be sharing negative HIV tests. Procedure Name Priority Date/Time Associated Diagnosis Comments AMB EXTERNAL CT CHEST, OUTSIDE RESULT 07/21/2024 COLONOSCOPY 06/21/2009 1:45 PM EST from Last 3 Months or Most Recently Relevant to Health Maintenance Results * Due to [place] [employer] Monitoring law, this organization might not be sharing negative HIV tests. * CT Chest, Outside Result (07/21/2024) Anatomical Region Laterality Modality Other 07/21/2024 us Onbase Scan [facility] AMB EXTERNAL RESULT PROCEDURE S Final Result [...] Relevant to Health Maintenance Insurance HSNO/FREE CARE [facility] Advance Directives Documents on File Type Date Recorded Patient [employer] Programs Director Expl anation Health Care Proxy 12/13/2020 10:22 AM * Full Code (Latest Code Status on File) Date Activated Date Inactivated Comments 12/27/2020 6:01 AM 12/29/2020 4:55 PM Healthcare Agents on File Name Relationship Healthcare Agent Relationshi p Communication Sylvia Bearden Spouse Health Care Agent Elijah Bearden Son Alternate Health Care Agent Care Teams External Relations Manager Relationship Specialty Start Date End Date Yuri Wilkes [address] [place] [address] [place] [address] PCP - General Internal Medicine 12/13/20
[2024-12-01 07:53] LABS: MANUAL DIFF FLAG NO
[2024-12-01 08:39] LABS: Estimated Average Glucose 160 mg/dL; Hemoglobin A1C 220.6947 umol/L; Hemoglobin A1c % 7.2 % (<6.0); Total Hemoglobin (HGBA1C) 4010.3276 umol/L
[2024-12-01 08:43] LABS: Basophils Percent Auto 0.4 % (0-2); Eosinophils Absolute Auto 0.1 X10*3/uL (0.0-0.4); Eosinophils Percent Auto 1.8 % (0-4); Hematocrit 42.8 % (42.0-52.0); Imm Gran Abs Auto 0.02 X10*3/uL (0.00-0.03); Imm Gran Pct Auto 0.3 % (0.0-0.4); Lymphocytes Absolute Auto 2.8 X10*3/uL (1.2-4.9); Lymphocytes Percent Auto 36.3 % (20-40); Mean Corpuscular Hemoglobin 30.9 pg (27.0-33.0); Mean Corpuscular Volume 88.1 fL (80.0-98.0); Mean Platelet Volume 10.1 fL (9.4-12.4); Monocytes Absolute Auto 0.5 X10*3/uL (0.1-1.2); Monocytes Percent Auto 6.7 % (2-11); Neutrophils Absolute Auto 4.2 x10*3/uL (2.0-8.3); Neutrophils Percent Auto 54.5 % (45-73); Platelet Count 252 X10*3/uL (160-400); Red Blood Count 4.86 X10*6/uL (4.60-5.80); Red Cell Distribution Width 12.3 % (11.0-16.0); White Blood Count 7.7 X10*3/uL (4.8-10.8)
[2024-12-01 09:09] LABS: Blood Urea Nitrogen 15 mg/dL (9-16)
[2024-12-01 09:10] LABS: Alanine Aminotransferase 16 U/L (0-40); Alkaline Phosphatase 63 U/L (39-117); Anion Gap 13 (12-20); Aspartate Amino Transferase 18 U/L (5-37); Bilirubin Total 0.7 mg/dL (0.0-1.0); Blood Urea Nitrogen 15 mg/dL (9-16); Calcium 9.6 mg/dL (8.4-10.2); Carbon Dioxide 25 mmol/L (22-29); Chloride 107 mmol/L (96-108); Cholesterol 164 mg/dL (<200); Estimated Glomerular Filt Rate 58; Glucose Fasting 190 mg/dL (60-99); HDL Cholesterol 44 mg/dL (>40); LDL Cholesterol Calculated 99 mg/dL (<100); Potassium 3.9 mmol/L (3.3-5.1); Sodium 141 mmol/L (135-145); Triglycerides 109 mg/dL (<150)
[2024-12-01 09:34] LABS: TSH reflex Free T4 1.62 uIU/mL (0.32-4.0); Vitamin D 25-OH Total 46.9 ng/mL (>30)
[2024-12-01 09:35] LABS: Vitamin B12 393 pg/mL (200-900)
[2024-12-01 12:26] LABS: Appearance Urine Clear; Color Urine Yellow; Glucose Urine UA 500 mg/dL (Negative); Leukocyte Esterase Urine Negative (Negative); Nitrite Urine Negative (Negative); UMIC TRIGGER UACC YES; Urine Blood Negative (Negative); Urine Ketones Negative (Negative); Urine Protein 30 (1+) mg/dL (Neg-Trace)
[2024-12-01 13:06] LABS: Creatinine Urine 144.37 mg/dL; Microalbum/Creatinine Ratio Ur 8.3 ug/mg cr (<30)
[2024-12-01 13:15] LABS: Bacteria Urine 2+ (None Seen); RBC Urine 0-2 /HPF (0-2); WBC Urine 0-5 /HPF (0-5)
[2024-12-05 13:58] LABS: Vitamin B1 76 nmol/L (8-30)
== END 2024-12-01 07:35 | disposition home or self-care (01) ==
LOC: HO.LAB 07:34
PROVIDERS: Internal Medicine; Nurse Practitioner Family; PCP Internal Medicine; Visit Provider Internal Medicine
DX: R79.89 Other specified abnormal findings of blood chemistry (principal); C17.9 Malignant neoplasm of small intestine, unspecified; D64.9 Anemia, unspecified; E11.9 Type 2 diabetes mellitus without complications; E53.8 Deficiency of other specified B group vitamins; E55.9 Vitamin D deficiency, unspecified; E78.00 Pure hypercholesterolemia, unspecified
CPT/HCPCS: 36415; 80053; 80061; 81001; 81003; 82043; 82306; 82570; 82607; 82746; 83036; 84425; 84443; 84520; 85025

== ENCOUNTER 2024-12-02 11:34 | Outpatient (AMB) | payer OTHER, SELFPAY ==
[2024-12-02 11:44] VITALS: BP 110/70; PULSE 73; O2SAT 98
--- NOTE | 2024-12-02 11:44 | A.OFFPC_ITS ---
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 Representative Dealer Required: No Accompanied by: Self / Same As Patient Allergies No Known Allergies [No Known Allergies*] Allergy (Verified 12/03/24 05:44) Medication List - Last Reconciled 12/03/24 by Yuri Wilkes MD [ADULT PULL UPS (large) As directed] albuterol sulfate 2.5 mg (3 mL) inhalation QID PRN 30 days [Bed pads As directed] benzonatate 100 mg PO BID-TID PRN 30 days blood sugar diagnostic (Equidateuch Ultra Test strips) As directed once a day blood-glucose meter (Equidateuch Ultra2 Meter) As directed blood-glucose sensor (FreeStyle Jermaine 3 Sensor device) As directed blood-glucose,medical corps officer,cont (FreeStyle Jermaine 3 [place]) As directed cetirizine (Zyrtec) 10 mg PO DAILY cetirizine (Zyrtec) 10 mg PO DAILY PRN chair, wheel (Wheel chair) Transport wheelchair As directed. To reduce risk for falls secondary to gait d/o and Alzheimer's dementia. cholecalciferol (vitamin D3) 250 mcg PO 2XW 90 days clonazepam 0.25 mg (1/2 x 0.5 mg) PO BEDTIME PRN 30 days [Commode As directed] dextromethorphan-guaifenesin 10-100 mg/5 mL 10 mL PO Q6H PRN [DIABETIC SHOES (1 pair) As directed] [disposable bed pads /10 packs As directed] famotidine 20 mg PO BID 90 days fluticasone furoate 100 mcg/actuation (Arnuity Ellipta) 1 inh inhalation DAILY fluticasone propionate 50 mcg/actuation 1 spray intranasal BID [Foam Mattress As directed] guaifenesin 200 mg (5 mL) PO Q4H PRN hydrochlorothiazide 12.5 mg PO DAILY 90 days [incontinent wipes / 10 packs As directed] ipratropium-albuterol 0.5 mg-3 mg(2.5 mg base)/3 mL 3 mL inhalation Q6H PRN lancets (OneTouch UltraSoft Lancets) As directed once a day lancets As directed lancets (OneTouch UltraSoft 2 Lancet) As directed lorazepam 0.25 mg (1/2 x 0.5 mg) PO TID PRN losartan 100 mg PO DAILY 90 days melatonin 9 mg (3 x 3 mg) PO BEDTIME 30 days melatonin ER 3 - 6 mg orally QHS; 30 days memantine 28 mg PO DAILY 90 days metformin 1,000 mg PO DAILY [Non slip bath mat As directed] nut.tx.gluc.intol,lac-free,soy (Glucerna oral liquid) 1 can orally TID with meals; 30 days omeprazole 20 mg PO DAILY [One Touch Ultra 2 glucose monitor. As directed] [One touch ultra 2 lancets As directed] [One touch ultra 2 strips As directed] polyethylene glycol 3350 (Miralax) 17 grams PO DAILY 30 days [SHOE INSERTS (3 pairs) As directed] [Shower handle As directed] thiamine HCl (vitamin B1) 100 mg PO DAILY 90 days [Transport chair light weight As directed] walker (Ultra-Light Rollator misc) As directed [wedge pillow As directed] [wheelchair back cushion As directed] [wheelchair seat cushion As directed] Tobacco use date assessed: 12/02/24 Fall risk assessment: No Falls in past year Last assessed Fall Risk: 12/02/24 Dental Screening Dental Screen Date: 12/02/24 Did you have a dental visit in the last 12 months?: Yes Did you have a dental problem in the last 6 months where you did not have access to dental care?: No Was dental information given to patient?: Patient has dentist HPI Alzheimer's, DM, hyperlipidemia HPI Details Patient comes in today for his follow up visit - is as usual accompanied by his , who helps with his visit and provides most of patient's information and complaints as patient is limited in his ability to participate actively with his visit due to his dementia Patient states that he feels okay He denies any headaches or dizziness Denies any chest pains, no increased shortness of breath No nausea/vomiting, no abdominal pain No change in bowel habits noted He had his follow-up labs done yesterday - to discuss his results [facility] Medical History Cerebral amyloid angiopathy Obstructive sleep apnea Overweight (BMI 25.0-29.9) Alzheimer's dementia Depression Vitamin D deficiency Memory impairment Renal cell carcinoma of right kidney Essential hypertension Type 2 diabetes mellitus with unspecified complications H/O malignant neoplasm of small intestine Diverticula of colon Kidney mass Anemia Diabetes Hypertension Surgical History Hx of colonoscopy Hx of kidney removal History of esophagogastroduodenoscopy (EGD) H/O sinus surgery Family History Father No problems noted. Mother Heart disease Pancreas cancer Maternal Grandmother Stomach cancer Social History Household Members: Spouse Housing: Apartment Are you a primary healthcare economics consultant to a significant other at home: No Do you presently have visiting nurse or other home services: No Alcohol intake: former Comment: given as premed Patient Tobacco Use Status: Former Tobacco user Tobacco use type: Cigar e-Cigarette/Vaping Use: Never Used Second Hand Smoke Exposure: No Advance Directives Date on File: 09/12/20 service: No Current occupational status: retired Cognitive needs: No Hearing needs: No Vision needs: Yes (glasses) Questionnaire PHQ-9 Over the last 2 weeks, how often have you been bothered by any of the following problems? 1. Little interest or pleasure in doing things: not at all 2. Feeling down, depressed, or hopeless: not at all 3. Trouble falling or staying asleep, or sleeping too much: not at all 4. Feeling tired or having little energy: not at all 5. Poor appetite or overeating: not at all 6. Feeling bad about yourself - or that you are a failure or have let yourself or your family down: not at all 7. Trouble concentrating on things, such as reading the newspaper or watching television: not at all 8. Moving or speaking so slowly that other people could have noticed. Or the opposite - being so fidgety or restless that you have been moving around a lot more than usual: nearly every day 9. Thoughts that you would be better off or of hurting yourself in some way: not at all Total score: 3 Depression Screening Interpretation: Negative Depression Screening Done: Yes 35843 - PHQ-9 Billing: Yes Source: Developed by Drs. Ashkan Henning, Heena Raphael, Rafiq Cristina and colleagues, with an educational edwige from [employer]. Thrive Questionnaire Date Thrive assessed: 12/02/24 I am a: Parent/Caregiver What is your living situation today?: I have a steady place to live Within the past 12 months, did the food you bought not last and you didn't have the money to get more?: Never true Within the past 12 months, did you worry whether your food would run out before you got money to buy more?: Never true Do you have trouble paying for medicines?: No Do you have trouble getting transportation to medical appointments?: No Do you have trouble paying your heating and electricity bill?: No Do you have trouble taking care of your child, family member or friend?: No Do you have trouble with day-to-day activities such as bathing, preparing meals, shopping, managing finances, etc.?: Yes Are you currently unemployed and looking for a job?: No Are you interested in more education?: No Please select the resources that you would like help with: None Currently or been in a relationship where the following occur: No concerns reported THRIVE Score: 0 AUDIT C Alcohol Use Questionnaire (AUDIT-C) 1. How often do you have a drink containing alcohol?: Never 3. How often do you have six or more drinks on one occasion?: Never Total Score: 0 Score Reviewed/Action Taken: Yes LAURA-7 AMB Questionnaire LAURA-7 Date LAURA - 7 assessed: 12/02/24 Feeling nervous, anxious, or on edge: 0 = Not at all Not being able to stop or control worryin = Not at all Worrying too much about different things: 0 = Not at all Trouble relaxin = Not at all Being so restless that it is hard to sit still: 1 = Several days Becoming easily annoyed or irritable: 1 = Several days Feeling afraid as if something awful might happen: 0 = Not at all Total LAURA-7 score (0-4 normal; 5-9 mild; 10-14 moderate; 15-21 severe): 2 Source: Developed by Drs. Ashkan Henning, Heena Raphael, Rafiq Cristina and colleagues, with an educational edwige from [employer]. Review of Systems Const Denies chills, Denies difficulty sleeping (sleeping better with his CPAP device), Denies fatigue, Denies fever(s) and Denies headache(s) ENT Denies dysphagia, Denies dizziness, Denies otalgia, Denies headache(s), Denies neck pain, Denies odynophagia and Denies sore throat Card Denies chest pain, Denies palpitations and Denies dyspnea Resp Denies chest congestion, Reports cough (recurrent - started up again last night) , Denies dyspnea and Denies wheezing GI Denies abdominal pain, Denies constipation (better controlled on Rx), Denies dysphagia, Denies heartburn, Denies diarrhea, Denies nausea, Denies odynophagia and Denies vomiting Denies dysuria, Denies nocturia and Denies urinary frequency Musc Denies back pain and Denies neck pain Skin/Breast Denies rash Neuro Denies behavioral changes, Reports confusion (on and off), Denies dizziness, Denies headache(s) and Reports memory loss (very forgetful) Psych Denies behavioral changes, Reports confusion (on and off) and Reports memory loss (very forgetful) Endo Denies fatigue and Denies palpitations Aller/Immun Denies wheezing Physical exam (Primary Care) Vital Signs: Last Vital Signs Pulse 73 12/02/24 11:44 BP 110/70 12/02/24 11:44 Pulse Ox 98 12/02/24 11:44 Oxygen Delivery Method Room Air 12/02/24 11:44 Tobacco/Smoking Status: Tobacco use Status Tobacco use date assessed 12/02/24 12/02/24 11:46 Patient Tobacco Use Status Former Tobacco user 12/02/24 11:46 Tobacco use type Cigar 12/02/24 11:46 e-Cigarette/Vaping Use Never Used 12/02/24 11:46 PHQ-9: PHQ-9 Score PHQ-9: Total score 3 12/03/24 05:44 Depression Screening Interpretation: Negative Thrive Assessment: Date of Thrive Assessment Date Thrive assessed 12/02/24 12/02/24 11:46 Currently or been in a relationship where the following occur: No concerns reported Const General: confusion (on and off) Orientation/consciousness: confusion (on and off) [facility] Ears: TM's normal bilaterally and EAC's normal Throat: Yes posterior oropharynx normal and Yes tonsils normal (no TP congestion) Neck Neck: Yes no lymphadenopathy and Yes supple Thyroid: Thyroid normal Resp Auscultation: clear to auscultation bilaterally, no rales and no wheezes Cardio Rate: regular rate Rhythm: regular rhythm Heart sounds: no murmurs GI Palpation (GI): Soft to palpation and nontender Auscultation: normal bowel sounds General: Yes no CVA tenderness Back/Spine/Pelvis Back: no CVA tenderness Skin Rashes: no rashes Neuro General: confusion (on and off) Extrem General: Yes no clubbing, cyanosis or edema Results Reviewed Results Reviewed: Laboratory Tests 12/01/24 12/01/24 07:52 11:13 WBC 7.7 Hgb 15.0 Hct 42.8 Plt Count 252 Sodium 141 Potassium 3.9 Estimated GFR 58 Fasting Glucose 190 H Hemoglobin A1c % 7.2 H Calcium 9.6 D AST 18 ALT 16 Triglycerides 109 Cholesterol 164 LDL Cholesterol, Calc 99 HDL Cholesterol 44 Vitamin B12 393 25-OH Vitamin D Total 46.9 TSH 1.62 Ur Specific [place] 1.020 Urine Protein 30 (1+) H Urine Glucose (UA) 500 H Urine Blood Negative Urine Nitrite Negative Ur Leukocyte Esterase Negative Microalb/Creat Ratio 8.3 Coding Level of Care Code Est Pt Level 4 (92802) Diagnoses Alzheimer's dementia without behavioral disturbance, psychotic disturbance, mood disturbance, or anxiety, unspecified dementia severity, unspecified timing of dementia onset G30.9; F02.80 Alzheimer's disease onset: unspecified onset Dementia severity: unspecified severity Dementia behavioral or psychological symptom: without behavioral, psychotic, or mood disturbance or anxiety Type 2 diabetes mellitus with unspecified complications E11.8 Essential hypertension I10 Recurrent cough R05.8 Gastritis without bleeding, unspecified chronicity, unspecified gastritis type K29.70 Gastritis type: unspecified gastritis Chronicity: unspecified Gastritis bleeding: without bleeding Renal cell carcinoma of right kidney C64.1 H/O malignant neoplasm of small intestine Z85.068 Obstructive sleep apnea G47.33 Vitamin D deficiency E55.9 Episode of recurrent major depressive disorder, unspecified depression episode severity F33.9 Depression Type: major depressive disorder Major depression recurrence: recurrent Active/Remission status: currently active Major depression episode severity: unspecified Overweight (BMI 25.0-29.9) E66.3 Additional Codes PHQ-9 - 82738 - PHQ-9 Billing: Yes ([id number]) Assessment & Plan Assessment & Plan (1) Alzheimer's dementia: Code(s): G30.9 - Alzheimer's disease, unspecified; F02.80 - Dementia in other diseases classified elsewhere, unspecified severity, without behavioral disturbance, psychotic disturbance, mood disturbance, and anxiety Category: Medical Qualifiers: Alzheimer's disease onset: unspecified onset Dementia severity: unspecified severity Dementia behavioral or psychological symptom: without behavioral, psychotic, or mood disturbance or anxiety Qualified Code(s): G30.9 - Alzheimer's disease, unspecified; F02.80 - Dementia in other diseases classified elsewhere, unspecified severity, without behavioral disturbance, psychotic disturbance, mood disturbance, and anxiety Plan: Head CT done in 2020 revealed (+) mild to moderate frontoparietal cortical atrophy Patient used to see Dr. Bradley for neurology follow up but switched over to [facility] last year Repeat brain MRI done back in June 2023 revealed (+) mild to moderate cerebral volume loss with associated ventricular and sulcal prominence and mild to moderate chronic microvascular ischemic changes. There were also findings suggestive of cerebral amyloid angiopathy Continue Donepezil 5 mg QD and Memantine 21 mg QD Follow up with neurology as scheduled (2) Type 2 diabetes mellitus with unspecified complications: Code(s): E11.8 - Type 2 diabetes mellitus with unspecified complications Category: Medical Plan: Results of his labs done yesterday reviewed and discussed with patient and his His HgbA1c was at 7.2% on his recent labs (was previously at 7.6% a few months ago) - goal is at least < 7.0% Reinforced diabetic diet - have again advised patient's to help him with this and take charge of his diet as patient would not be able to do this on his own due to his dementia Continue Metformin 1000 mg QD for now (3) Essential hypertension: Code(s): I10 - Essential (primary) hypertension Category: Medical Plan: Reinforced low sodium diet - goal is systolic BP of at least 130 mm or less Continue Losartan 100 mg QD and HCTZ 12.5 mg QD; he used to also take Amlodipine 2.5 mg QD but this was discontinued a few months ago and he has been doing well since (4) Recurrent cough: Code(s): R05.8 - Other specified cough Category: Medical Plan: Still unclear at this time whether this is just due to allergies or some reactive airway disease or GERD (due to his symptoms worsening at night) He underwent allergy testing, which came back normal He has been started on a trial of Arnuity Ellipta 100 mcg 1 inhalation once a day with some improvement of his recurrent cough although patient is not really able to use his inhalers properly due to his dementia He is also on Albuterol HFA 1-2 inhalation 4 times a day as needed and Cetirizine 10 mg QD Follow-up with pulmonary as scheduled (5) Gastritis: Code(s): K29.70 - Gastritis, unspecified, without bleeding Category: Medical Qualifiers: Gastritis type: unspecified gastritis Chronicity: unspecified Gastritis bleeding: without bleeding Qualified Code(s): K29.70 - Gastritis, unspecified, without bleeding Plan: Dietary restrictions reinforced; his previous abdominal symptoms have improved with Rx Continue Omeprazole 20 mg QD and Famotidine 20 mg BID - reminded again that if his recurrent coughing is at least partially due to GERD, his nighttime dose of Famotidine should help him a lot (6) Renal cell carcinoma of right kidney: Comment: Clear cell carcinoma, pathological staging pT1a pNx Code(s): C64.1 - Malignant neoplasm of right kidney, except renal pelvis Category: Medical Plan: S/P partial nephrectomy on 12/27/2020 - tumor was limited to the kidney, with no sarcomatoid features, no tumor necrosis or lymphovascular invasion and margins are negative Follow up with urology as scheduled for continuing surveillance (7) 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, AJCC stage III S/P small bowel resection (distal jejunum, proximal ileum and mesentery) and primary small bowel anastomosis on 02/23/2020 Completed adjuvant chemotherapy with modified FOLFOX regimen from 03/2020 to September 2020 Code(s): Z85.068 - Personal history of other malignant neoplasm of small intestine Category: Medical Plan: Diagnosed in 2019 S/P surgical resection and adjuvant chemotherapy Follow up with oncology and GI as scheduled for continuing surveillance and monitoring (8) Obstructive sleep apnea: Comment: Mild degree of sleep apnea. The AHI was 08/hr and oxygen bucky was 87%. Code(s): G47.33 - Obstructive sleep apnea (adult) (pediatric) Category: Medical Plan: Patient had a home sleep study done in July 2023 that revealed mild JACI He was recommended to try an oral device first prior to transitioning to AutoPap recommended at 5 to 15 cm H2O Follow up with Sleep Medicine as scheduled (9) Vitamin D deficiency: Code(s): E55.9 - Vitamin D deficiency, unspecified Category: Medical Plan: Continue Vitamin D3 250 mcg 2 times a week Will recheck his Vitamin D level in 4 months for follow up (10) Depression: Code(s): F32.A - Depression, unspecified Category: Medical Qualifiers: Depression Type: major depressive disorder Major depression recurrence: recurrent Active/Remission status: currently active Major depression episode severity: unspecified Qualified Code(s): F33.9 - Major depressive disorder, recurrent, unspecified Plan: Continue Quetiapine 12.5 mg BID (11) Overweight (BMI 25.0-29.9): Code(s): E66.3 - Overweight Category: Medical Plan: Reinforced diet; exercise and weight loss are not realistic but have encouraged patient (and his family to help him) stay active as much as he can Plan Follow up in 4 months Orders: Orders Comprehensive [place]. Panel Fast 4 Months E78.00 - Pure hypercholesterolemia, unspecified Lipid Panel 4 Months E78.00 - Pure hypercholesterolemia, unspecified TSH reflex Free T4 4 Months E78.00 - Pure hypercholesterolemia, unspecified Complete Blood Count Auto Diff 4 Months D64.9 - Anemia, unspecified Hemoglobin A1c 4 Months E11.9 - Type 2 diabetes mellitus without complications Microalbumin, Random (w Creat) 4 Months E11.9 - Type 2 diabetes mellitus without complications UA CC w/rflx Micro + Cult 4 Months R30.0 - Dysuria Vitamin B12 and Folate 4 Months E53.8 - Deficiency of other specified B group vitamins Vitamin D 25-OH Total 4 Months E55.9 - Vitamin D deficiency, unspecified Medications: New lancets (OneTouch UltraSoft 2 Lancet) As directed 100 ea 5RF E11.8 - Type 2 diabetes mellitus with unspecified complications
--- OUTSIDE RECORDS SUMMARY | 2024-12-02 11:54 | XMS_ITS | Clinical Summary ---
Author Organization [facility] Address [address] [place] [address] Care Team Providers Care Vision Therapist Name Role Phone ChungYuri Primary Care Provider Allergies Active Allergy Reactions Criticality Noted Date [...] complete this topic Procedures * Due to [place] Sitemasher law, this organization might not be sharing negative HIV tests. Procedure Name Priority Date/Time Associated Diagnosis Comments AMB EXTERNAL CT CHEST, OUTSIDE RESULT 07/21/2024 COLONOSCOPY 06/21/2009 1:45 PM EST from Last 3 Months or Most Recently Relevant to Health Maintenance Results * Due to [place] Sitemasher law, this organization might not be sharing negative HIV tests. * CT Chest, Outside Result (07/21/2024) Anatomical Region Laterality Modality Other 07/21/2024 us Onbase Scan [facility] AMB EXTERNAL RESULT PROCEDURE S Final Result [...] Relevant to Health Maintenance Insurance HSNO/FREE CARE [facility] Advance Directives Documents on File Type Date Recorded Patient Roll Line Operator Expl anation Health Care Proxy 12/13/2020 10:22 AM * Full Code (Latest Code Status on File) Date Activated Date Inactivated Comments 12/27/2020 6:01 AM 12/29/2020 4:55 PM Healthcare Agents on File Name Relationship Healthcare Agent Relationshi p Communication Sylvia Bearden Spouse Health Care Agent Elijah Bearden Son Alternate Health Care Agent Care Teams Vision Therapist Relationship Specialty Start Date End Date Yuri Wilkes [address] [place] [address] [place] [address] PCP - General Internal Medicine 12/13/20
== END 2024-12-02 12:11 | disposition home or self-care (01) ==
LOC: HO.HMCH 11:34
PROVIDERS: PCP Internal Medicine; Visit Provider Internal Medicine
DX: E11.8 Type 2 diabetes mellitus with unspecified complications (principal); G30.9 Alzheimer's disease, unspecified; F02.80 Dementia in other diseases classified elsewhere, unspecified severity, without behavioral disturbance, psychotic disturbance, mood disturbance, and anxiety; C64.1 Malignant neoplasm of right kidney, except renal pelvis; I10 Essential (primary) hypertension; R05.8 Other specified cough; K29.70 Gastritis, unspecified, without bleeding; Z85.068 Personal history of other malignant neoplasm of small intestine; G47.33 Obstructive sleep apnea (adult) (pediatric); E55.9 Vitamin D deficiency, unspecified; F33.9 Major depressive disorder, recurrent, unspecified; E66.3 Overweight

== ENCOUNTER → 2024-12-02 11:34 | Outpatient (BNVA) | payer OTHER, SELFPAY | PROVIDERS: PCP Internal Medicine; Visit Provider Internal Medicine | DX: I10 Essential (primary) hypertension (principal); E11.8 Type 2 diabetes mellitus with unspecified complications; G30.9 Alzheimer's disease, unspecified; F02.80 Dementia in other diseases classified elsewhere, unspecified severity, without behavioral disturbance, psychotic disturbance, mood disturbance, and anxiety; R05.8 Other specified cough; K29.70 Gastritis, unspecified, without bleeding; C64.1 Malignant neoplasm of right kidney, except renal pelvis; G47.33 Obstructive sleep apnea (adult) (pediatric); E55.9 Vitamin D deficiency, unspecified; F33.9 Major depressive disorder, recurrent, unspecified; E66.3 Overweight; Z85.068 Personal history of other malignant neoplasm of small intestine; Z79.84 Long term (current) use of oral hypoglycemic drugs; Z79.899 Other long term (current) drug therapy | CPT/HCPCS: 96127; 99212 ==

== ENCOUNTER 2024-12-22 10:48 | Outpatient (AMB) | payer OTHER, SELFPAY ==
[2024-12-22 10:51] VITALS: BP 100/58; PULSE 83; O2SAT 98; BMI 24.9
--- NOTE | 2024-12-22 10:51 | A.OFFVIS_ITS ---
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 He is accompanied by who provides HPI given h/o dementia. We previously discussed cough is likely multifactorial with contribution from reflux, postnasal drip possibly asthma. Since increasing PPI, in addition to Zyrtec, Tessalon Perles, and DuoNeb at night patient has had decrease in persistent nighttime cough. She continues to report dry cough without any associated wheezing or labored breathing. Previously trialed Arnuity however due to progression of dementia unable to use. Patient was evaluated at [facility] ER for ongoing cough in November, workup negative as well as negative imaging. [facility] Medical History Cerebral amyloid angiopathy Obstructive sleep apnea Overweight (BMI 25.0-29.9) Alzheimer's dementia Depression Vitamin D deficiency Memory impairment Renal cell carcinoma of right kidney Essential hypertension Type 2 diabetes mellitus with unspecified complications H/O malignant neoplasm of small intestine Diverticula of colon Kidney mass Anemia Diabetes Hypertension Surgical History Hx of colonoscopy Hx of kidney removal History of esophagogastroduodenoscopy (EGD) H/O sinus surgery Family History Father No problems noted. Mother Heart disease Pancreas cancer Maternal Grandmother Stomach cancer Social History Household Members: Spouse Housing: Apartment Are you a primary home health care social worker to a significant other at home: No Do you presently have visiting nurse or other home services: No Alcohol intake: former Comment: given as premed Patient Tobacco Use Status: Former Tobacco user Tobacco use type: Cigar e-Cigarette/Vaping Use: Never Used Second Hand Smoke Exposure: No Advance Directives Date on File: 09/12/20 service: No Current occupational status: retired Cognitive needs: No Hearing needs: No Vision needs: Yes (glasses) Review of Systems Const All systems reviewed & are unremarkable except as noted in HPI and below Denies excessive sweating, Denies fever(s) and Denies night sweats ENT Reports Normal hearing present Card Denies leg edema, Denies dyspnea on exertion, Denies orthopnea and Denies paroxysmal nocturnal dyspnea Resp Denies excessive phlegm production, Denies pain on inspiration, Denies pain with cough, Denies dyspnea on exertion and Denies stridor Neuro Reports Normal hearing present Endo Denies excessive sweating Aller/Immun Denies seasonal rhinorrhea Physical Exam Vital Signs: Last Vital Signs Pulse 83 12/22/24 10:51 BP 100/58 L 12/22/24 10:51 Pulse Ox 98 12/22/24 10:51 Oxygen Delivery Method Room Air 12/22/24 10:51 BMI result Body Mass Index 24.9 Const General: comfortable, no acute distress, well developed and alert HEENT Head: Yes normal to inspection, Yes normocephalic and Yes atraumatic Ears: hearing grossly normal bilaterally and external ears normal Eyes General: appearance normal, both eyes and all related structures Eyelids: Yes eyelids normal Sclerae: sclerae normal EOM: EOMs intact bilaterally Neck Neck: Yes normal visual inspection and Yes no lymphadenopathy Lymphatic: no lymphadenopathy noted Chest Chest palpation & inspection: normal inspection of the chest Resp Effort & Inspection: normal respiratory effort, able to speak in complete sentences, no audible wheezes, no stridor, not tachypneic, no tripod positioning and no use of accessory muscles Auscultation: diminished lung sounds Cardio Jugular venous distension: no JVD Rate: regular rate Rhythm: regular rhythm Skin Other: warm, dry General skin exam: no rashes or lesions noted Neuro Cranial nerves: Yes Normal hearing present Cognition (Neuro): normal cognition Gait exam (Neuro): Normal gait present Extrem General: Yes normal to inspection, Yes capillary refill normal, Yes no clubbing, cyanosis or edema and Yes no pedal edema Psych Appearance: grossly normal and well kempt Affect: Blunted affect present Insight: Limited insight present (Psych) Judgement: Limited judgement present (Psych) Assessment & Plan Assessment & Plan (1) Chronic bronchitis: Code(s): J42 - Unspecified chronic bronchitis Category: Medical (2) Cough: Code(s): R05.9 - Cough, unspecified Category: Medical (3) Dementia: Code(s): F03.90 - Unspecified dementia, unspecified severity, without behavioral disturbance, psychotic disturbance, mood disturbance, and anxiety Category: Medical Plan At this time because reports overall improvement in current regimen, advised to continue. Unclear etiology of cough however likely multifactorial, possibly related to underlying asthma. Now that patient using nebulized therapy effectively, will send in budesonide nebulizer to be used once daily. Discussed importance of good oral hygiene to prevent thrush. She is aware to call if symptoms worsen. All questions were answered and patient is in agreement of plan. Will follow-up in 4-6 weeks or sooner if needed. Medications: New budesonide 0.25 mg (2 mL) inhalation BID 60 mL 3RF Refilled ipratropium-albuterol 0.5 mg-3 mg(2.5 mg base)/3 mL 3 mL inhalation Q6H PRN 180 mL 6RF wheezing Discontinued fluticasone furoate 100 mcg/actuation (Arnuity Ellipta) Discontinued Reason: Patient Completed Course 1 inh inhalation DAILY 30 ea 6RF Coding Level of Care Code Est Pt Level 4 (53653) Diagnoses Chronic bronchitis J42 Cough R05.9 Dementia F03.90
--- OUTSIDE RECORDS SUMMARY | 2024-12-22 12:24 | XMS_ITS | Clinical Summary ---
Author Organization [facility] Address [address] [place] [address] Care Team Providers Care Production Laborer Name Role Phone ChungYuri Primary Care Provider [phone] Allergies Active Allergy Reactions Criticality Noted Date [...] 97 12/13/2021 1:08 PM EDT Temperature 36.6 C (97.8 F) 12/29/2020 11:33 AM EDT Respiratory Rate 20 12/29/2020 11:33 AM EDT [...] complete this topic Procedures * Due to [place] law, this organization might not be sharing negative HIV tests. Procedure Name Priority Date/Time Associated Diagnosis Comments AMB EXTERNAL CT CHEST, OUTSIDE RESULT 07/21/2024 COLONOSCOPY 06/21/2009 1:45 PM EST from Last 3 Months or Most Recently Relevant to Health Maintenance Results * Due to [place] law, this organization might not be sharing [...] Most Recently Relevant to Health Maintenance Insurance [facility] [address] [place] [address] [facility] Advance Directives Documents on File Type Date Recorded Patient Wastewater Analyst Expl anation Health Care Proxy 12/13/2020 10:22 AM * Full Code (Latest Code Status on File) Date Activated Date Inactivated Comments 12/27/2020 6:01 AM 12/29/2020 4:55 PM Healthcare Agents on File Name Relationship Healthcare Agent Relationshi p Communication Sylvia Bearden Spouse Health Care Agent Elijah Bearden Son Alternate Health Care Agent Care Teams Production Laborer Relationship Specialty Start Date End Date Yuri Wilkes [address] [place] [address] dr Antonia Knight, KENDY [address] PCP - General Internal Medicine 12/13/20
== END 2024-12-22 11:25 | disposition home or self-care (01) ==
LOC: HO.HPSW 10:49
PROVIDERS: PCP Internal Medicine; Visit Provider Nurse Practitioner Family
DX: J42 Unspecified chronic bronchitis (principal); R05.9 Cough, unspecified; F03.90 Unspecified dementia, unspecified severity, without behavioral disturbance, psychotic disturbance, mood disturbance, and anxiety
CPT/HCPCS: 99214

== ENCOUNTER → 2024-12-22 10:48 | Outpatient (BNVA) | payer OTHER, SELFPAY | PROVIDERS: PCP Internal Medicine; Visit Provider Nurse Practitioner Family | DX: J42 Unspecified chronic bronchitis (principal); R05.9 Cough, unspecified; F03.90 Unspecified dementia, unspecified severity, without behavioral disturbance, psychotic disturbance, mood disturbance, and anxiety | CPT/HCPCS: 99212 ==

== ENCOUNTER 2024-12-30 12:35 | Outpatient (AMB) | payer OTHER, SELFPAY ==
--- NOTE | 2024-12-30 13:04 | MHC.OFFVIS ---
Vital Signs 12/30/24 13:14 Height 5 ft 11 in Weight 179 lb BMI 25.0 BP 131/64 Blood Pressure Location Lt brachial Position Sitting Pulse 71 Intake Visit Reasons: f/u 1 year r/s for 08/26 Intake Note: Patient almost 2 year follow up for H/O malignant neoplasm of small intestine. Patient cc: States that he is not having any concerns at this time. Urology Physician Assistant Required: No Allergies No Known Allergies (No Known Allergies*) Allergy (Verified 12/30/24 13:05) Medication List - Last Reconciled 12/30/24 by Zhou Mitchell MD [ADULT PULL UPS (large) As directed] albuterol sulfate 2.5 mg (3 mL) inhalation QID PRN 30 days [Bed pads As directed] benzonatate 100 mg PO BID-TID PRN 30 days blood sugar diagnostic (M2M Solution Ultra Test strips) As directed once a day blood-glucose meter (M2M Solution Ultra2 Meter) As directed blood-glucose sensor (Imanis Life SciencesStyle Jermaine 3 Sensor device) As directed blood-glucose,service associate,cont (FreeStyle Jermaine 3 [place]) As directed budesonide 0.25 mg (2 mL) inhalation BID cetirizine (Zyrtec) 10 mg PO DAILY PRN chair, wheel (Wheel chair) Transport wheelchair As directed. To reduce risk for falls secondary to gait d/o and Alzheimer's dementia. cholecalciferol (vitamin D3) 250 mcg PO 2XW 90 days clonazepam 0.25 mg (1/2 x 0.5 mg) PO BEDTIME PRN 30 days [Commode As directed] dextromethorphan-guaifenesin 10-100 mg/5 mL 10 mL PO Q6H PRN [DIABETIC SHOES (1 pair) As directed] [disposable bed pads /10 packs As directed] famotidine 20 mg PO BID 90 days fluticasone propionate 50 mcg/actuation 1 spray intranasal BID [Foam Mattress As directed] guaifenesin 200 mg (5 mL) PO Q4H PRN hydrochlorothiazide 12.5 mg PO DAILY 90 days [incontinent wipes / 10 packs As directed] ipratropium-albuterol 0.5 mg-3 mg(2.5 mg base)/3 mL 3 mL inhalation Q6H PRN lancets (OneTouch UltraSoft Lancets) As directed once a day lancets As directed lancets (OneTouch UltraSoft 2 Lancet) As directed losartan 100 mg PO DAILY 90 days melatonin 9 mg (3 x 3 mg) PO BEDTIME 30 days memantine 28 mg PO DAILY 90 days metformin 1,000 mg PO DAILY [Non slip bath mat As directed] nut.tx.gluc.intol,lac-free,soy (Glucerna oral liquid) 1 can orally TID with meals; 30 days omeprazole 20 mg PO DAILY [One Touch Ultra 2 glucose monitor. As directed] [One touch ultra 2 lancets As directed] [One touch ultra 2 strips As directed] polyethylene glycol 3350 (Miralax) 17 grams PO DAILY 30 days [SHOE INSERTS (3 pairs) As directed] [Shower handle As directed] [Transport chair light weight As directed] walker (Ultra-Light Rollator misc) As directed [wedge pillow As directed] [wheelchair back cushion As directed] [wheelchair seat cushion As directed] HPI HPI f/u 1 year r/s for 08/26: Details: GI clinic visit for this 69-year-old male for FU of colon polyps. He has a history of iron deficiency anemia in the past. 02/2020 pt underwent a diagnostic laparoscopy for small-bowel obstruction by Dr. Esquivel was converted to laparotomy with small-bowel resection and primary small bowel anastomosis due to adenoca of distal jejunum/proximal ileum. Pathology:? Moderately differentiated adenocarcinoma, tumor invades adjacent loops of bowel, 1 lymph node positive, margins negative for malignancy.? Tumor size 2.5 x 1.2 cm, 3 lymph nodes examined. Pathological stage pT4N1. PET scan performed 03/21/2020 showed physiological uptake in the lingular tonsil, mass in the upper pole of right kidney only weekly FDG avid, no additional abnormality suspicious for metastatic cancer. Received adjuvant chemotherapy with modified FOLFOX regimen from 04/03/2020 until September 2020 . ? Patient had laparoscopic partial nephrectomy on 12/27/2020.? 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 Margins negative.? Pathological staging pT1a pNx. CHRONIC ILLNESSES:? Diabetes mellitus, hypertension. TODAY'S VISIT Patient almost 2 year follow up for H/O malignant neoplasm of small intestine. Patient cc: States that he is not having any concerns at this time. Patient is accompanied by his? who interpreted for the patient. Pt was diagnosed with dementia. Intermittent heartburn and takes Famotidine prn with relief of symptoms. Takes Miralax as needed (usually every other day) for constipation. Trying to lose weight by making changes in his diet. PAST VISIT: noted he had acid reflux and burping and has been taking Gas X. Does not drink milk. Takes Glucerna 1-[address] a week in place of lunch. Denies constipation - drinking a lot of water Taking Miralax prn if he feels constipated. Having a BM daily. Pt is having some back pain and waiting to see his PCP for appropriate referrals Taking Miralax daily with improvement in constipation. Has a BM every 1-2 days. he stopped taking iron pills as advised by Dr Junior since MIKE has resolved. Complains of constipation and has a BM every other day but its a struggle Notes hard stool sometimes associated with straining Patient denies change in bowel habits, black stools or rectal? bleeding Denies dysphagia, heartburn, nausea or vomiting, change in? appetite or weight. Notes some burping after drinking He was taking iron daily for MIKE and decreased to twice a week by Dr Junior ?IMAGING? STUDIES:?11/27/[address] SCAN SHOWED: No evidence of metastatic or recurrent disease. Stable postsurgical changes to the upper pole of the right kidney and small bowel. Diverticulosis. Fleischner guidelines were followed. 12/[address] SCAN SHOWED:Stable appearance of the chest, abdomen, and pelvis without new findings to suggest metastatic disease. Renal cysts. Low-density regions within the skeleton which are stable and without destructive findings. Postsurgical change small bowel without adjacent adenopathy or soft tissue abnormality.? 12/15/[address] SCAN SHOWED;Stable postsurgical changes to the small bowel. Diverticulosis of the colon. Stool throughout the colon suggestive of constipation. ? Stable 3.4 x 3.5 cm partially solid partially cystic lesion in the upper pole of the right kidney suspicious for neoplasm. Small bilateral renal cysts. Stable fullness of the left adrenal gland. 01/12/19 MRI showed:?IMPRESSION: ? 3.9 x 2.9 cm? complex cystic lesion in the upper pole of the right ? kidney? concerning for neoplasm. Bilateral simple-appearing renal ? cysts.? Diverticulosis of the colon. ?ENDOSCOPIC STUDIES:?08/2021 colonoscopy showed: No polyps were detected No recurrent polyp was seen in the cecum Moderate diverticulosis seen in the entire colon Moderate hemorrhoids on retroflexed exam. Plan:? Repeat Colonoscopy in 3 years due to fair prep in some areas of the colon and a hx of adenomatous colon polyp 11/2018 and 12/2018 Pt was hospitalized at [facility] [place] 2 wih melena associated with? iron deficiency anemia.Upper endoscopy was performed by Dr. Valiente during his?1st hospitalization and showed a small hiatal hernia and no source of bleeding? was found. ?COLONOSCOPY ON 01/05/2019 SHOWED: ?Colonoscopy? Findings: ?Two polyps removed ?Moderate diverticulosis seen in? the entire colon ?Moderate hemorrhoids on retroflexed? exam. ?Plan: ?Await pathology results ?Patient to? schedule a FU appointment in the GI Clinic with Zhou Mitchell M.D. ?in? 2 weeks ?Repeat Colonoscopy in 1-2 years if cecal polyp is adenomatous? to check ?polypectomy site and due to fair to poor prep in the rectum -? add a fleet enema ?to his prep on arrival in the prep room for future? colonoscopies. ?Above findings were reviewed with the patient and colon? polyps and ?diverticulosis handouts were given in the discharge? area ?Biopsies showed: ?A. Colon, cecum, polypectomy:? Fragments of tubular adenoma; negative for high grade ?dysplasia and? carcinoma. ?B. Colon, transverse, polypectomy: Fragments of tubular? adenoma; negative for high grade dysplasia and? carcinoma [facility] Medical History Cerebral amyloid angiopathy Obstructive sleep apnea Overweight (BMI 25.0-29.9) Alzheimer's dementia Depression Vitamin D deficiency Memory impairment Renal cell carcinoma of right kidney Essential hypertension Type 2 diabetes mellitus with unspecified complications H/O malignant neoplasm of small intestine Diverticula of colon Kidney mass Anemia Diabetes Hypertension Surgical History Hx of colonoscopy Hx of kidney removal History of esophagogastroduodenoscopy (EGD) H/O sinus surgery Family History Father No problems noted. Mother Heart disease Pancreas cancer Maternal Grandmother Stomach cancer Social History Household Members: Spouse Housing: Apartment Are you a primary medicare biller to a significant other at home: No Do you presently have visiting nurse or other home services: No Alcohol intake: former Comment: given as premed Patient Tobacco Use Status: Former Tobacco user Tobacco use type: Cigar e-Cigarette/Vaping Use: Never Used Second Hand Smoke Exposure: No Advance Directives Date on File: 09/12/20 service: No Current occupational status: retired Cognitive needs: No Hearing needs: No Vision needs: Yes (glasses) Physical Exam Vital Signs: Last Vital Signs Pulse 71 12/30/24 13:14 BP 131/64 12/30/24 13:14 BMI result Body Mass Index 25.0 Const General: healthy appearing and no acute distress Nutritional Appearance: average body habitus Orientation/consciousness: patient oriented x3 Limitations: other limitations (diagnosed with dementia) HEENT Head: Yes normal to inspection Ears: hearing grossly normal bilaterally Mouth: Normal oral and palatal mucosa present Eyes Sclerae: sclerae normal Pupils: Equal, round and reactive pupils present Neck Neck: Yes normal visual inspection Chest Chest palpation & inspection: normal inspection of the chest Resp Effort & Inspection: normal respiratory effort Auscultation: clear to auscultation bilaterally Cardio Palpation: normal PMI Rate: regular rate Rhythm: regular rhythm Heart sounds: S1 normal heart sound present, S2 normal heart sound present and no murmurs GI Palpation (GI): Soft to palpation, nontender and No hepatosplenomegaly present Auscultation: normal bowel sounds Rectal Exam - Male: Yes deferred Skin General skin exam: no rashes or lesions noted Neuro General: patient oriented x3, gait normal and moves all extremities Cranial nerves: Yes Equal, round and reactive pupils present Psych Appearance: grossly normal Mental Status: mental status grossly normal Assessment & Plan Assessment & Plan (1) History of colon polyps: Code(s): Z86.010 - Personal history of colon polyps Category: Medical (2) Gastritis: Code(s): K29.70 - Gastritis, unspecified, without bleeding Category: Medical Qualifiers: Chronicity: unspecified Gastritis bleeding: without bleeding Gastritis type: unspecified gastritis Qualified Code(s): K29.70 - Gastritis, unspecified, without bleeding (3) Dysphagia: Code(s): R13.10 - Dysphagia, unspecified Category: Medical Plan 69 YM with DM and Htn followed in GI for anemia and a hx of colon polyps. 02/2020 pt underwent a diagnostic laparoscopy for small-bowel obstruction by Dr. Morgan It was converted to laparotomy with small-bowel resection and primary small bowel anastomosis due to adenoca of distal jejunum/proximal ileum. Pathology:? Moderately differentiated adenocarcinoma, tumor invades adjacent loops of bowel, 1 lymph node positive, margins negative for malignancy.? Tumor size 2.5 x 1.2 cm, 3 lymph nodes examined. Pathological stage pT4N1.? PET scan performed 03/21/2020 showed physiological uptake in the lingular tonsil, mass in the upper pole of right kidney only weekly FDG avid, no additional abnormality suspicious for metastatic cancer. Received adjuvant chemotherapy with modified FOLFOX regimen from 04/03/2020 until September 2020 . ? Patient had laparoscopic partial nephrectomy on 12/27/2020.? 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 Margins negative.? Pathological staging pT1a pNx. Pt is being followed by Dr Junior. 12/[address] SCAN SHOWED:??Stable appearance of the chest, abdomen, and pelvis without new findings to suggest metastatic disease. Patient denies known family history of colon? polyps or cancer though his knowledge regarding his family history is somewhat? limited. Aug 2021 colonoscopy showed diverticulosis and hemorrhoids and no polyps were detected. Repeat colonoscopy is advised in 3 yrs due to fair prep. Pt noted heartburn and bloating and prescribed Famotidine 20 mg twice daily prn with adequate control of symptoms Pt continues to see Dr Junior for FU of small intestinal ca and Surveillance CT chest/abdomen and pelvis with contrast in July 2024 was negative for disease recurrence He has now been diagnosed with dementia, he is under the care of neurologist. Pt is due for colonoscopy for follow-up of colon polyps - request was sent to GI surgical schedulers to schedule an appointment His would like to schedule in March (since they are going to [place] in February) Colonoscopy prep instructions and procedure were reviewed with the patient and his FU appt in 6 months Medications: New polyethylene glycol 3350 (Miralax) Mix Miralax with 64 oz(8 cups) of Crystal light. Take 2 tablets of Dulcolax qt 12 pm. Wait to have your 1st bowel movement, then begin drinking Miralax. Drink a glass of Miralax every 10-15 minutes until you are finished. You will drink at least another 4 cups of clear liquid of your choice over the next 2 hours. Please drink as many clear liquids as possible You may have clear liquids up to four hours before your procedure 17 grams PO DAILY 238 grams 0RF colon prep 1 day bisacodyl (Dulcolax (bisacodyl)) Take 2 tablets at 12 pm starting 5 days before colonoscopy 10 mg (2 x 5 mg) PO ONCE 10 tabs 0RF colon prep 5 days Refilled famotidine 20 mg PO BID 180 tabs 1RF 90 days Discontinued omeprazole Discontinued Reason: Patient Completed Course 20 mg PO DAILY 14 caps 0RF Coding Level of Care Code Est Pt Level 3 (11399) Diagnoses History of colon polyps Z86.010 Gastritis without bleeding, unspecified chronicity, unspecified gastritis type K29.70 Chronicity: unspecified Gastritis bleeding: without bleeding Gastritis type: unspecified gastritis Dysphagia R13.10 Time Spent (min) 18
[2024-12-30 13:14] VITALS: BP 131/64; PULSE 71; BMI 25.0
--- OUTSIDE RECORDS SUMMARY | 2024-12-30 14:56 | XMS_ITS | Clinical Summary ---
Author Organization [facility] Address [address] [place] [address] Care Team Providers Care Incoming Freight Clerk Name Role Phone ChungYuri Primary Care Provider [phone] Allergies Active Allergy Reactions Criticality Noted Date [...] Health Maintenance Due Date Last Done Comments Colonoscopy 06/21/2014 06/21/2009 COVID-19 Vaccine ( season) 2024 07/04/2021, 11/06/2020, 10/07/2020 Alcohol/Substance Use Screening 07/07/2024 Health Care Proxy Review 07/07/2024 RSV Vaccine (60+ years old and [...] complete this topic Procedures * Due to [place] [employer] law, this organization might not be sharing negative HIV tests. Procedure Name Priority Date/Time Associated Diagnosis Comments AMB EXTERNAL CT CHEST, OUTSIDE RESULT 07/21/2024 COLONOSCOPY 06/21/2009 1:45 PM EST from Last 3 Months or Most Recently Relevant to Health Maintenance Results * Due to [place] [employer] law, this organization might not be sharing negative HIV tests. * CT Chest, Outside Result (07/21/2024) Anatomical Region Laterality Modality Other 07/21/[address] [facility] [place] AMB EXTERNAL RESULT PROCEDURE S Final Result [...] Most Recently Relevant to Health Maintenance Insurance [facility] [place] [id number] Advance Directives Documents on File Type Date Recorded Patient Building Energy Consultant Expl anation Health Care Proxy 12/13/2020 10:22 AM * Full Code (Latest Code Status on File) Date Activated Date Inactivated Comments 12/27/2020 6:01 AM 12/29/2020 4:55 PM Healthcare Agents on File Name Relationship Healthcare Agent [facility] p Communication Sylvia Bearden Spouse Health Care Agent Elijah Bearden Son Alternate Health Care Agent Care Teams Incoming Freight Clerk Relationship Specialty Start Date End Date Yuri Wilkes [address] [place] [address] dr Antonia Knight, KENDY [id number] PCP - General Internal Medicine 12/13/20
== END 2024-12-30 13:51 | disposition home or self-care (01) ==
LOC: HO.HGI 12:35
PROVIDERS: PCP Internal Medicine; Visit Provider Internal Medicine Gastroenterology
DX: Z86.0100 Personal history of colon polyps, unspecified (principal); K29.70 Gastritis, unspecified, without bleeding; R13.10 Dysphagia, unspecified
CPT/HCPCS: 99213

== ENCOUNTER → 2024-12-30 12:35 | Outpatient (BNVA) | payer OTHER, SELFPAY | PROVIDERS: PCP Internal Medicine; Visit Provider Internal Medicine Gastroenterology | DX: R12 Heartburn (principal); K59.00 Constipation, unspecified; Z86.0100 Personal history of colon polyps, unspecified; K29.70 Gastritis, unspecified, without bleeding; R13.10 Dysphagia, unspecified | CPT/HCPCS: 99212 ==

== ENCOUNTER 2025-01-25 14:35 | Outpatient (AMB) | payer OTHER, SELFPAY ==
[2025-01-25 14:46] VITALS: BP 118/72; PULSE 72; O2SAT 97; BMI 24.8
--- NOTE | 2025-01-25 14:46 | A.OFFVIS_ITS ---
Vital Signs 01/25/25 14:46 Height 5 ft 11 in Weight 178 lb BMI 24.8 BP 118/72 Blood Pressure Location Lt brachial Position Sitting Pulse 72 Pulse Source Pulse Oximeter Pulse Oximetry (%) 97 Oxygen Delivery Method Room Air Intake Visit Reasons: Follow up 6mo, weight loss, hunger Apparel Patternmaker Required: No Accompanied by: Spouse Allergies No Known Allergies (No Known Allergies*) Allergy (Verified 01/25/25 14:51) Medication List - Last Reconciled 01/25/25 by AUGUSTIN Garcia [ADULT PULL UPS (large) As directed] albuterol sulfate 2.5 mg (3 mL) inhalation QID PRN 30 days [Bed pads As directed] benzonatate 100 mg PO BID-TID PRN 30 days bisacodyl (Dulcolax (bisacodyl)) 10 mg (2 x 5 mg) PO ONCE 5 days blood sugar diagnostic (WeFi Ultra Test strips) As directed once a day blood-glucose meter (WeFi Ultra2 Meter) As directed blood-glucose sensor ([employer] Jermaine 3 Sensor device) As directed blood-glucose,solid waste collection worker,cont (FreeStyle Jermaine 3 [place]) As directed budesonide 0.25 mg (2 mL) inhalation DAILY cetirizine (Zyrtec) 10 mg PO DAILY PRN chair, wheel (Wheel chair) Transport wheelchair As directed. To reduce risk for falls secondary to gait d/o and Alzheimer's dementia. cholecalciferol (vitamin D3) 250 mcg PO 2XW 90 days [Commode As directed] dextromethorphan-guaifenesin 10-100 mg/5 mL 10 mL PO Q6H PRN [DIABETIC SHOES (1 pair) As directed] [disposable bed pads /10 packs As directed] famotidine 20 mg PO BID 90 days fluticasone propionate 50 mcg/actuation 1 spray intranasal BID [Foam Mattress As directed] guaifenesin 200 mg (5 mL) PO Q4H PRN hydrochlorothiazide 12.5 mg PO DAILY 90 days [incontinent wipes / 10 packs As directed] ipratropium-albuterol 0.5 mg-3 mg(2.5 mg base)/3 mL 3 mL inhalation Q6H PRN lancets (WeFi UltraSoft Lancets) As directed once a day lancets As directed lancets (OneTouch UltraSoft 2 Lancet) As directed losartan 100 mg PO DAILY 90 days melatonin 9 mg (3 x 3 mg) PO BEDTIME 30 days memantine 28 mg PO DAILY 90 days metformin 1,000 mg PO DAILY [Non slip bath mat As directed] nut.tx.gluc.intol,lac-free,soy (Glucerna oral liquid) 1 can orally TID with meals; 30 days [One Touch Ultra 2 glucose monitor. As directed] [One touch ultra 2 lancets As directed] [One touch ultra 2 strips As directed] polyethylene glycol 3350 (Miralax) 17 grams PO DAILY 1 day [SHOE INSERTS (3 pairs) As directed] [Shower handle As directed] [Transport chair light weight As directed] walker (Ultra-Light Rollator misc) As directed [wedge pillow As directed] [wheelchair back cushion As directed] [wheelchair seat cushion As directed] HPI Comments Details: 69-year-old male presents for follow-up visit for dementia. Patient is accompanied by his , who provides most of history. Patient's is asking if patient will be able to fly to [place] to see her mother in late February, who she has not seen for many years. is also concerned that patient is losing weight, despite eating and taking a supplement shake. She states he recently underwent follow-up PET scan, which did not show any evidence of cancer recurrence. He is due to have follow-up colonoscopy. Interval vitamin B1 level was elevated at 76. Patient was advised to hold thiamine and recheck vitamin B1 level in 1-2 months-labs not yet completed. reports patient continues to need assist with ADLs. He needs cuing and contact guard while ambulating. He continues to walk very slowly. He has stopped carbidopa levodopa as it seemed to make his balance worse. states that his coughing episodes at night have improved, and he is now sleeping much better with his current medication regimen and sleeping with head elevated. states for the most part, patient is generally very calm, however he can be, bit more agitated/restless after 16:00-but never violent or aggressive. states they have not heard from [facility]. She states his oldest son reportedly is experiencing cognitive difficulties. She also notes, that her youngest son has expressed that he does not want to hear the results of [facility]'s genetic test if/when they become available. 07/13/2024, previous HPI: 69-yr-old male presents for f/u televideo visit of dementia, accompanied by his , Sylvia. In June, patient's called to report BLE pins and needles. At that time, we added lab workup for nutritional deficiencies, which showed low serum vitamin B1 < 6. Thus, we started patient on a vitamin B1 supplement. He is needing more help with ADLs, using the bathroom and now incontinence care- is not always able to say when he has been incontinent, will just noticing him pacing. now has to demonstrate how to brush his teeth every morning. Has difficulty initiating tasks. He is resistive to taking a shower. He is continuing to have coughing, especially at night. Denies coughing runny nose while eating. Had pulmonary follow-up, CXR was clear. Has been referred for MBS. Was also just started on treatment for postnasal drip. He is eating ok. Is taking Boost qam. He is not talking as much, does not always understand what he is trying to say. He is still rolling his fingers. Patient did start CD-LD 25-100mg 1/2 tab bid which was then increased to 1 tab b.i.d.. Since, is walking a bit better since starting CD-LD, but gait is worse after 4pm. He did PT, who advised them that he was not safe to use a walker as he tends to push the walker out too much. He has not had any falls- and son walk with him. Since starting CD-LD, he has had less episodes of after it becomes dark, walking up to his bedroom and just sitting in the dark. Pt has been sleeping better with Clonazepam. He is tolerating Memantine 21mg ER qd and Donepazil 5mg qd well. Donepazil at 10mg qd caused GI upset. Initial history of cognitive symptoms: He has had memory issues since he underwent chemotherapy for colon cancer stopped 4 yrs ago- and since this has progressed. Pt cognitive symptoms are worse in the evening- he is confused at night. He denies family h/o early onset dementia on his mother's side, and does not know his father's side. 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 Previous Work-up: 03/04/2024, at [facility], CT PET [facility]: IMPRESSION: The scan is positive, indicating moderate to frequent amyloid neuritic plaques. 01/26/24, MR/MR head/brain wo/w con, MRA head w/o: IMPRESSION: * Stable pattern foci of susceptibility signal within the periphery of the cerebral hemispheres bilaterally as well as chronic siderosis. The patient is young for amyloid angiopathy however amyloid angiitis could appear similar at this age demographic. * Global cerebral volume loss and moderate chronic microangiopathy again noted. 06/2023 MR/MR head/brain wo con IMPRESSION: Numerous foci of susceptibility artifact in a peripheral distribution may be seen in the setting of underlying cerebral amyloid angiopathy. Clinical correlation is recommended. Mild generalized cerebral volume loss with associated ventricular and sulcal prominence. Mild to moderate chronic microvascular ischemic change. [facility] Medical History Cerebral amyloid angiopathy Obstructive sleep apnea Overweight (BMI 25.0-29.9) Alzheimer's dementia Depression Vitamin D deficiency Memory impairment Renal cell carcinoma of right kidney Essential hypertension Type 2 diabetes mellitus with unspecified complications H/O malignant neoplasm of small intestine Diverticula of colon Kidney mass Anemia Diabetes Hypertension Surgical History Hx of colonoscopy Hx of kidney removal History of esophagogastroduodenoscopy (EGD) H/O sinus surgery Family History Father No problems noted. Mother Heart disease Pancreas cancer Maternal Grandmother Stomach cancer Social History Household Members: Spouse Housing: Apartment Are you a primary youth care specialist to a significant other at home: No Do you presently have visiting nurse or other home services: No Alcohol intake: former Comment: given as premed Patient Tobacco Use Status: Former Tobacco user Tobacco use type: Cigar e-Cigarette/Vaping Use: Never Used Second Hand Smoke Exposure: No Advance Directives Date on File: 09/12/20 service: No Current occupational status: retired Cognitive needs: No Hearing needs: No Vision needs: Yes (glasses) Physical Exam Vital Signs: Last Vital Signs Pulse 72 01/25/25 14:46 BP 118/72 01/25/25 14:46 Pulse Ox 97 01/25/25 14:46 Oxygen Delivery Method Room Air 01/25/25 14:46 BMI result Body Mass Index 24.8 Const General: cooperative and no acute distress Resp Effort & Inspection: normal respiratory effort and able to speak in complete sentences Neuro Other: Pt is alert w/ STM lapses. He does not engage in conversation unless spoken to directly. He provides short, but appropriate answers. Pleasant affect, but expression is dulled. No tremor. Stands slowly, decreased arm swing, knees bent w/ very short steps. General: CN's II-XI intact bilaterally Motor exam (neuro): 5/5 motor strength present throughout Psych Appearance: grossly normal Attitude: cooperative Assessment & Plan Assessment & Plan (1) Dementia in Alzheimer's disease: Comment: w/ 49 yo son w/ cognitive s/s. Code(s): G30.9 - Alzheimer's disease, unspecified; F02.80 - Dementia in other diseases classified elsewhere, unspecified severity, without behavioral disturbance, psychotic disturbance, mood disturbance, and anxiety Category: Medical (2) Abnormal brain MRI: Code(s): R90.89 - Other abnormal findings on diagnostic imaging of central nervous system Category: Medical (3) Gait difficulty: Code(s): R26.9 - Unspecified abnormalities of gait and mobility Category: Medical (4) Alzheimer's dementia: Code(s): G30.9 - Alzheimer's disease, unspecified; F02.80 - Dementia in other diseases classified elsewhere, unspecified severity, without behavioral disturbance, psychotic disturbance, mood disturbance, and anxiety Category: Medical Qualifiers: Alzheimer's disease onset: unspecified onset Dementia severity: unspecified severity Dementia behavioral or psychological symptom: without behavioral, psychotic, or mood disturbance or anxiety Qualified Code(s): G30.9 - Alzheimer's disease, unspecified; F02.80 - Dementia in other diseases classified elsewhere, unspecified severity, without behavioral disturbance, psychotic disturbance, mood disturbance, and anxiety (5) Cerebral amyloid angiopathy: Code(s): E85.4 - Organ-limited amyloidosis; I68.0 - Cerebral amyloid angiopathy Category: Medical (6) Bradykinesia: Code(s): R25.8 - Other abnormal involuntary movements Category: Medical (7) Obstructive sleep apnea: Comment: Mild degree of sleep apnea. The AHI was 08/hr and oxygen bucky was 87%. Code(s): G47.33 - Obstructive sleep apnea (adult) (pediatric) Category: Medical (8) Sleep difficulties: Code(s): G47.9 - Sleep disorder, unspecified Category: Medical Plan Recent brain MRI/MRA and PET scan- results c/w a Alzheimer's dementia w/ cerebral amyloid angiopthy. Comprehensive neuro-psych evaluation as ordered. Pt is fluent in Uzbek. Will follow-up on referral for genetics evaluation- to assess for genetics causes of young onset dementia s/s and present/status of APOE. Patient is advised to undergo follow-up brain MRI with and without contrast to assess status of amyloid angiopathy signs. Prior to MRI, recheck labs. Upon review, we will review risks and benefits of patient flying and if patient would be appropriate for amyloid targeted therapies. Continue supportive care, patient 27/01 assistance with ADLs. Continue Melatonin- up to 9 mg Q HS. Continue Clonazepam 0.25-0.5mg qhs. Continue Donepazil 5mg qd- decreased from 10mg d/t GI upset and anorexia. Continue Memantine ER 28 mg qd. Discontinue carbidopa-levodopa 25-100 mg p.o. b.i.d- not tolerated Continue to hold vitamin B1 100 mg q.d.-we will reassess once B1 level rechecked. Transport wheelchair for medical appointments, shopping, family visits. Continue engaging pt in daily exercise, as well as cognitive and socially stimulating activities. However, advised to set a schedule for activities, limit number of daily activities. Pt may benefit from trying bright or SAD type light exposure. Continue strategies such as allowing pt time to relax, and we reapproaching or redirecting pt when pt is frustrated/irritated. Encourage PAP use, however sleep apnea is mild so we do not have to force pt to use it. Continue optimized sleep hygiene practices. Follow-up upon review of above, and follow-up visit in 6 months or sooner prn. Orders: Orders Complete Blood Count Auto Diff Today E67.8 - Other specified hyperalimentation, I10 - Essential (primary) hypertension, R79.89 - Other specified abnormal findings of blood chemistry MR head/brain wo/w con Today C64.1 - Malignant neoplasm of right kidney, except renal pelvis, E85.4 - Organ-limited amyloidosis, I68.0 - Cerebral amyloid angiopathy, R90.89 - Other abnormal findings on diagnostic imaging of central nervous system, Z85.068 - Personal history of other malignant neoplasm of small intestine Homocysteine Today E67.8 - Other specified hyperalimentation, I10 - Essential (primary) hypertension, R79.89 - Other specified abnormal findings of blood chemistry Methylmalonic Acid Today E67.8 - Other specified hyperalimentation, I10 - Essential (primary) hypertension, R79.89 - Other specified abnormal findings of blood chemistry Comprehensive Met. Panel Today E67.8 - Other specified hyperalimentation, I10 - Essential (primary) hypertension, R79.89 - Other specified abnormal findings of blood chemistry Coding Level of Care Code Est Pt Level 4 (81762) Diagnoses Dementia in Alzheimer's disease G30.9; F02.80 Abnormal brain MRI R90.89 Gait difficulty R26.9 Alzheimer's dementia without behavioral disturbance, psychotic disturbance, mood disturbance, or anxiety, unspecified dementia severity, unspecified timing of dementia onset G30.9; F02.80 Alzheimer's disease onset: unspecified onset Dementia severity: unspecified severity Dementia behavioral or psychological symptom: without behavioral, psychotic, or mood disturbance or anxiety Cerebral amyloid angiopathy E85.4; I68.0 Bradykinesia R25.8 Obstructive sleep apnea G47.33 Sleep difficulties G47.9
--- OUTSIDE RECORDS SUMMARY | 2025-01-25 15:48 | XMS_ITS | Clinical Summary ---
Author Organization [facility] Address [address] [place] [address] Care Team Providers Care Pilot Plant Supervisor Name Role Phone ChungYuri Primary Care Provider [phone] Allergies Active Allergy Reactions Criticality Noted Date [...] Screening 07/07/2024 Health Care Proxy Review 07/07/2024 Influenza Vaccine (#1) 2025 , 03/24/2023, 04/25/2022, Additional history exists RSV Vaccine (60+ years old and patients) (1 - 1-dose 75+ series) 2032 DTaP,Tdap,and Td Vaccines (3 - Td or Tdap) 02/02/2034 02/03/2024, 05/26/2013, 02/15/2009 Zoster Vaccines Completed 02/03/2024, 10/2022, 04/27/2018 Pneumococcal Vaccine: 50+ Years Completed 04/13/2024, 03/24/2023, 07/10/2022, Additional history exists CT Lung Cancer Screening (12 months, previous LungRADS 1 or 2) Discontinued 07/21/2024, 12/15/2020 Hepatitis B Vaccines Aged Out No long er eligible based on patient's age to complete this topic Procedures * Due to [place] law, this organization might not be sharing negative HIV tests. Procedure Name Priority Date/Time Associated Diagnosis Comments AMB EXTERNAL CT CHEST, OUTSIDE RESULT 07/21/2024 COLONOSCOPY 06/21/2009 1:45 PM EST from Last 3 Months or Most Recently Relevant to Health Maintenance Results * Due to [place] law, this organization might not be sharing [...] Relevant to Health Maintenance Insurance [facility] [employer] [place] [id number] Advance Directives Documents on File Type Date Recorded Patient Heater Furnace Expl anation Health Care Proxy 12/13/2020 10:22 AM * Full Code (Latest Code Status on File) Date Activated Date Inactivated Comments 12/27/2020 6:01 AM 12/29/2020 4:55 PM Healthcare Agents on File Name Relationship [facility] Sylvia Bearden Spouse Health Care Agent Elijah Bearden Son Alternate Health Care Agent Care Teams Pilot Plant Supervisor Relationship Specialty Start Date End Date Yuri Wilkes [address] [place] [address] [place] [address] PCP - General Internal Medicine 12/13/20
--- OUTSIDE RECORDS SUMMARY | 2025-01-25 15:49 | XMS_ITS | Patient Health Record ---
Author Organization [facility] Address [address] [place] [address] Care Team Providers Care Small Stock Facer Name Role Phone Chung GONZALES Weatherly Primary Care Provider Rodolfo Tran Unavailable [phone] Allergies No Known Allergies Results Component Value Reference Range Notes HEMOGLOBIN A1C (GLYCOHEMOGLO BIN) Reviewed date:06/24/2024 01:49:22 PM Interpretation: Performing Lab: Notes/Report: TOTAL HEMOGLOBIN (HGBA1C) 7.1 HEMOGLOBIN A1C (GLYCOHEMOGLO BIN) Reviewed date:09/29/2024 03:43:06 PM Interpretation: Performing Lab: Notes/Report: HEMOGLOBIN A1C % (HH) 7.1 HEMOGLOBIN A1C (GLYCOHEMOGLO BIN) Reviewed date:12/27/2024 01:14:34 PM Interpretation: Performing Lab: Notes/Report: HEMOGLOBIN A1C (GLYCOHEMOGLO BIN) Reviewed date:12/27/2024 01:26:56 PM Interpretation: Performing Lab: Notes/Report: HEMOGLOBIN A1C % (HH) 7.1 Reason For Referral No Information Medications Medication SIG (Take, Route, Frequency, Duration) Notes Start Date End Date Status Losartan Potassium 100 MG 1 tablet Orall y Once a day Active hydroCHLOROthiazide 12.5 MG 1 capsule in the morning Orally Once a day Active Memantine HCl Active metFORMIN HCl 1000 MG 1 tablet with a me al Orally Once a day Active Albuterol Active Famotidine 20 MG 1 tablet at bedtime as needed Orally Once a day Not-Taking Donepezil HCl Active MiraLax 17 GM/SCOOP 1 scoop mixed with 8 ounces of fluid Orally Once a day Not-Taking Sertraline HCl 25 MG 1 tablet Orally Onc e a day Not-Taking Carbidopa-Levodopa 25-100 MG PLEASE SEE ATTACHED FOR DETAILED DIRECTIONS Oral; Duration: 90 Days Active clonazePAM Not-Takin g Vitamin D3 250 MCG (96826 UT) as directed Orally Active Extra Depth Orthopedic Shoes, (1) Pair With (3) Pair Custom Heat Molded Multidensity Innersoles Dx: NIDDM/PVD(E11.51), Hammertoe Foot Deformity(M20.41,M20. 42), Preulcerative Skin Lesion(s)(L85.1) Wear Daily; Duration: 365 days 01/07/2024 Active Immunizations Vaccine Route Administration Date Status Comme nts Influenza Unknown 03/08/2024 Administered Social History Tobacco Use: Social History Observation [...] Problem Acquired hammer toe of right foot ([id number] 66363) Other hammer toe(s) (acquired), right foot (M20.41) Active confirmed Response to treatment,Im provement Problem Acquired hammer toe of left foot (03097736353 24560) Other hammer toe(s) (acquired), left foot (M20.42) Active confirmed Response to treatment,Im provement Problem Type 2 diabetes mellitus with diabetic peripheral angiopathy without gangrene (E11.51) Active confirmed Q7(A), Q8(2B), Q9(1B,2C) Vital Signs Blood pressure diastolic 86 mm Hg 09/29/2024 Height 5ft 11in in 12/27/2024 Blood pressure systolic 132 mm Hg 09/29/2024 Weight 178 lbs 12/27/2024 BMI 24.82 kg/m2 12/27/2024 Procedures Procedure Date Ordered Date Performed Result Body Sit e 96323-HSEBZCU NAIL, 1-5 03/18/2024 N/A 07317-TOSR SKIN LESIONS, 2 TO 4 03/18/2024 N/A N1103-WWULLPHW DYSTROPHIC NAILS ANY # 03/18/2024 N/A 60731-HHJFJCD NAIL, 1-5 06/24/2024 N/A 59282-VARO SKIN LESIONS, 2 TO 4 06/24/2024 N/A K5418-TQBRRUWT DYSTROPHIC NAILS ANY # 06/24/2024 N/A 18020-AIKKHDC NAIL, 1-5 09/29/2024 N/A 39712-VQVW SKIN LESIONS, 2 TO 4 09/29/2024 N/A O7197-XYMJMILS DYSTROPHIC NAILS ANY # 09/29/2024 N/A 11647-SYRGYSE NAIL, 1-5 12/27/2024 N/A 21830-XPFQ SKIN LESIONS, 2 TO 4 12/27/2024 N/A G1185-ANVTZEGE DYSTROPHIC NAILS ANY # 12/27/2024 N/A Encounters Encounter Location Date Provider Diagnosis [address] [address] 03/18/2024 Rodolfo Chenunier Type 2 diabetes mellitus with diabetic peripheral angiopathy without gangrene E11.51 ; Tinea unguium B35.1 ; Pain in right toe(s) M79.674 and Pain in left toe(s) M79.[address] [address] 06/24/2024 Rodolfo Kaplan Type 2 diabetes mellitus with diabetic peripheral angiopathy without gangrene E11.51 ; Tinea unguium B35.1 ; Pain in right toe(s) M79.674 ; Pain in left toe(s) M79.675 ; Other hammer toe(s) (acquired), right foot M20.41 and Other hammer toe(s) (acquired), left foot M20.[address] [address] 09/29/2024 Rodolfo Kaplan Type 2 diabetes mellitus with diabetic peripheral angiopathy without gangrene E11.51 ; Tinea unguium B35.1 ; Pain in right toe(s) M79.674 and Pain in left toe(s) M79.[address] [place] [address] 12/27/2024 Rodolfo Kaplan Type 2 diabetes mellitus with diabetic peripheral angiopathy without gangrene E11.51 ; Tinea unguium B35.1 ; Pain in right toe(s) M79.674 and Pain in left toe(s) M79.675 [facility] [address] [facility]/14/2024 [facility] [address] 12/23/2024 Rodolfo Kaplan Assessments Encounter Date Diagnosis (ICD Code) Assessment Notes Treatment Notes Treatment Clinical Notes Section Notes 03/18/2024 Tinea unguium (ICD-10 - B35.1) 03/18/2024 Type 2 diabetes mellitus with diabetic peripheral angiopathy without gangrene (ICD-10 - E11.51) 06/24/2024 Tinea unguium (ICD-10 - B35.1) 06/24/2024 Type 2 diabetes mellitus with diabetic peripheral angiopathy without gangrene (ICD-10 - E11.51) 09/29/2024 Tinea unguium (ICD-10 - B35.1) 09/29/2024 Type 2 diabetes mellitus with diabetic peripheral angiopathy without gangrene (ICD-10 - E11.51) Q7(A), Q8(2B), Q9(1B,2C) 12/27/2024 Tinea unguium (ICD-10 - B35.1) 12/27/2024 Type 2 diabetes mellitus with diabetic peripheral angiopathy without gangrene (ICD-10 - E11.51) Q7(A), Q8(2B), Q9(1B,2C) 12/27/2024 Pain in right toe(s) (ICD-10 - M79.674) 06/24/2024 Pain in right toe(s) (ICD-10 - M79.674) 09/29/2024 Pain in right toe(s) (ICD-10 - M79.674) 03/18/2024 Pain in right toe(s) (ICD-10 - M79.674) 03/18/2024 Pain in left toe(s) (ICD-10 - M79.675) 09/29/2024 Pain in left toe(s) (ICD-10 - M79.675) 06/24/2024 Pain in left toe(s) (ICD-10 - M79.675) 12/27/2024 Pain in left toe(s) (ICD-10 - M79.675) 06/24/2024 Other hammer toe(s) (acquired), right foot (ICD-10 - M20.41) Response to treatment,Impro vement 06/24/2024 Other hammer toe(s) (acquired), left foot (ICD-10 - M20.42) Response to treatment,Impro vement Plan Of Treatment Pending Test Test Name Order Date 63790-RWRUYRH NAIL, 1-5 01/07/2024 57949-GLGNZVT NAIL, 1-5 03/18/2024 30912-JFOGNTS NAIL, 1-5 06/24/2024 89953-QURROUS NAIL, 1-5 09/29/2024 89844-PJJWGPT NAIL, 1-5 12/27/2024 62916-DLCJ SKIN LESIONS, 2 TO 4 12/28/19 25 04469-GSHG SKIN LESIONS, 2 TO 4 09/30/19 25 94239-ZVGA SKIN LESIONS, 2 TO 4 06/24/20 24 82790-MEXD SKIN LESIONS, 2 TO 4 01/07/20 24 90364-QJAN SKIN LESIONS, 2 TO 4 03/18/20 24 U5639-PCOROPYE DYSTROPHIC NAILS ANY # G5918-JJFZKMRT DYSTROPHIC NAILS ANY # U5160-MDFMVNNK DYSTROPHIC NAILS ANY # D7631-IJHSLYTD DYSTROPHIC NAILS ANY # Y0728-DPNLEOOX DYSTROPHIC NAILS ANY # Next Appt Details Provider Name:Rodolfo Kaplan , 03/24/2025 02:00:00 PM, [address] [facility], [facility] [address], [place], [address], Insurance Providers Payer Name Payer Address Payer Phone Subscriber Number Group Number Insured Name Patient Relationship to Insured Coverage Start Date Coverage End Date [facility] [employer] Claims [address] [place] [address] [phone] [id number] Elijah Bearden Self - patient is the [...] colon cancer 02/23/20 Hospitalization History Reason Date(Month/Year) [facility]- coughing 11/11/24 [facility]- coughing 2023
--- OUTSIDE RECORDS SUMMARY | 2025-01-25 15:49 | XMS_ITS | Data Portability ---
Author Organization [facility] Address [address] [place] [address] Care Team Providers Care Hand Chain Maker Name Role Phone HIM CCA OTHER ANMOL MARQUEZ Primary Care Provider Assessment Encounter Date Assessment Date Assessment LastModified by Organization Details LastModified Time 02/19/2024 02/19/2024 I have reviewed and agree with the Assessment and Plan as documented by the Purification Supervisor. I provided real-time medical direction via phone [...] Assessment and Plan as documented by the Purification Supervisor. The patient / given the opportunity to ask questions. Advised if develops CP/severe SOB/turning blue/AMS/ syncope/ hi fever to call 911- she verbalized understanding of instructions to the medic lu Not available 06/22/2024 13:10:23 07/12/2024 07/12/2024 I have reviewed and agree with the assessment and plan as documented by the wood fuel pelletizer. I provided real time medical direction for this encounter and was immediately available to provide additional phone based assistance as needed. History as noted by wood fuel pelletizer. Pt with history of hypertension, COPD/asthma, type 2 diabetes mellitus, dementia (Alzheimer's disease), osteoarthritis, and colon CA. Pt has had URI symptoms for about 2 weeks describing nasal congestion, rhinorrhea, and BAGGAGE AGENT cough. [facility] and was diagnosed with a viral URI. He also reports being seen by his spirits model last week and had labs and a [...] f/u with his primary care team or spirits model if his symptoms continue to persist despite [...] respiratory specimen 2023 024 DOMENICO Romano - [facility], [address] [place] [address], [id number] 19:02:16 rapid flu (A+B) 2023 024 DOMENICO [facility] - [facility], [address] [place] [address], [address] 4 19:02:38 rapid SARS CoV 2 Ag, QL IA, respiratory specimen 2023 024 [email or web address] 0 Main - [facility], [address] [place] [address], [id number] 4 13:10:41 rapid flu (A+B) 2023 024 [email or web address] 0 Main - [facility], [address] [place] [address], [address] 4 13:10:41 BMP, serum or plasma 2023 024 [email or web address] 0 Main - [facility], [address] [place] [address], [address] 4 13:10:41 rapid SARS CoV 2 Ag, QL IA, respiratory specimen [address] [facility], [address] [place] [address], [address] 4 12:14:29 rapid flu (A+B) 2023 024 [facility], [address] [place] [address], [address] 4 12:14:49 Referral None recorded. Procedures None recorded. Surgeries None recorded. Imaging None recorded. Medication Orders doxycycline monohydrate 100 mg tablet 2024 025 [id number], [address] [place], [address], 5 09:20:59 benzonatate 200 mg capsule 2024 025 [facility], [address] [place], [address], 5 09:20:58 fluticasone propionate 50 mcg/actuati on nasal spray,suspe nsion 2023 024 [facility], [address] [place], [address], 10:22:30 Patient TargetsNo targets recorded. Patient InstructionsNo instructions recorded. Reason for Referral None Reported. Results Created Date Observation Date Name Description Value Unit Range Abnormal Flag Note LastModifiedBy Organization Detail LastModifiedTime 06/22/20 24 06/22/2024 rapid flu (A+B) Flu negati ve Not Available Main [facility] [address] [place] [address], [phone] 06/22/2024 11:17:48 06/22/20 24 06/22/2024 rapid SARS CoV 2 Ag, QL IA, respi rator y speci men rapid SARS CoV 2 Ag, QL IA, respiratory specimen negati ve Not Available [facility] - [facility] [address] [place] [address], [address] 06/22/2024 11:17:47 06/22/20 24 06/22/2024 BMP, serum or plasm a Ca 1.33 Not Available Main - [facility] [address] [place] [address], [address] 06/22/2024 11:18:25 Result Notes None recorded. Medical [...] blood by Pulse oximetry Heart rate Systolic And Diastolic Provider Name and Address Organization Details Last Updated DateTime 5 98.1 [degF] 16 /min 95 % 95 % 53 /min 126/82 mm[Hg] Not Available [facility] - production 5 09:13:44 Date Recorded Respiratory rate Heart rate Body temperature Body height Oxygen saturation Oxygen saturation in Arterial blood by Pulse oximetry Body weight Systolic And Diastolic Provider Name and Address Organization Details Last Updated DateTime 4 14 /min 62 /min 98 [degF] 182.88 cm 98 % 98 % 95784.6 g 122/82 mm[Hg] Not Available [facility] - production 10:19:48 Date Recorded Respiratory rate Body height Oxygen saturation Oxygen saturation in Arterial blood by Pulse oximetry Body weight Heart rate Body temperature Systolic And Diastolic Provider Name and Address Organization Details Last Updated DateTime 14 /min 180.34 cm 98 % 98 % 94408.2 56 g 60 /min 98.7 [degF] 144/88 mm[Hg] Not Available [facility] - production 10:50:18 Date Recorded Oxygen saturation Oxygen saturation in Arterial blood by Pulse oximetry Body temperature Heart rate Respiratory rate Systolic And Diastolic Provider Name and Address Organization Details Last Updated DateTime 98 % 98 % 98.2 [degF] 76 /min 18 /min 144/82 mm[Hg] Not Available [facility] - production 12:56:22 Social History None recorded. Functional Status None recorded. Mental Status None recorded. Family History Nothing Reported. Medical History No medical history recorded. Past Encounters Encounter ID Performer Location Encounter Start Date Encounter Closed Date Diagnosis/Indication Diagnosis SNOMED-CT Code Diagnosis ICD10 Code Diagnosis Note [id number] Reyes Hanna MD Main - [facility] [address] 02/19/2024 10:19:45 02/20/2024 12:55:18 Cough 24849656 R05.9 [id number] Sylvia Valentin MD Main - [facility] [address] [place] [phone] 06/22/2024 10:50:15 06/22/2024 13:52:43 Cough 96334672 R05.9 Advised to continue regular medicines and follow-up with PCP/BMP ordered as requested- results non-concer varun. Calcium is slightly elevated patient is not on any calcium supplement ation per his [id number] REJI RAMOS MD Main - [facility] [address] [place] [phone] 07/03/2024 12:56:17 07/06/2024 20:29:08 Viral upper respiratory tract infection 847398409 J06.9 Evaluation in the field was performed by my wood fuel pelletizer colleague, as noted above, I provided real-time [...] to tolerate PO or any other concerns. [id number] Skip Tovar MD Main - [facility] [address] [place] [phone] 07/12/2024 09:13:40 07/12/2024 14:48:07 Acute bronchitis 59462589 J20.9 Health Concerns Section Related Observation LastModified by Organization Detai ls LastModified Time None Recorded Concern Status LastModified by Organization Details LastModified Time None Recorded Advance Directives Directive None Recorded Payers Insurance Date Sequence Insurance Name Policy Number Policy Arroyo Covered Member ID Arroyo Member ID Guarantor Name 07/12/2024 1 [facility] - DOS ON OR AFTER 2022 - DUAL ELIGIBLE - INTERMEDIATE OPTIONS AND ONE CARE (MEDICARE REPLACEMENT/ADV ANTAGE - HMO) Elijah Bearden [id number] Elijah Suleiman Notes Date Note Type Note Provider Name and Address Organization Details Recorded Time 02/19/2024 text/html CRC Nurse Triage Notes (Jennifer Cota): Reason For Request: coughing during nighttime Chief Complaints: Cough PMH: Diabetes, Severe Dementia, Hypertension Allergies: No Known Comments: Ballet Master/Mistress verified the member's name//address and phone number. [...] s/s and seek emergency treatment if needed Purification Supervisor Organization Information for Adam Duval Copyright Agent Legal Name: [facility] Address: [address] [place] [address], [place] Shore Hand: César Dominguez MD IA No.: [id number] Purification Supervisor POC Test Results from Adam Duval Rapid COVID antigen (10:16:04) COVID: - Rapid influenza antigen (10:16:05) Flu: - .................... .................... .................... .................... .................... .................... .................... . Purification Supervisor Note From Adam Duval: Patient seated in [...] any other pain or complaint. Patient states it s not a burning feeling, it s a small tickle at the back of his throat.Patient pink warm dry, secondary exam unremarkable. Lung sounds clear in all bullock. Oropharynx appears normal, no white or swollen areas. Patient does not use inhalers.Patient negative for Covid and flu via rapid POC. [facility] orders Flonase to patient local pharmacy. Care and plan discussed with caregiver, grateful for service and expect to call back in the future. Red flags, patient education discussed. Supportive care, including tea with honey, and use of the Flonase device discussed. .................... .................... .................... .................... .................... .................... .................... . Disposition: Fulfilled Reyes Hanna MD [address], [place], [address], [facility] 02/19/2024 11:14:41 06/22/2024 text/html HPI: See if u could draw blood .................... .................... .................... .................... .................... .................... .................... . CRC Nurse Triage Notes (Monica Menon - RN): Denies: Increased work of breathing/labored with or without fever Unable to speak in full sentences without distress Discoloration of skin -cyanosis Needs to sleep sitting up, can t catch breath Shortness of breath in [...] was negative. She would like him evaluated. Purification Supervisor Organization Information for Ying Raya Legal Name: [employer]. Address: [address] [place] [address], [place] Hand: Mason Willis MD CLIA No.: [id number] Purification Supervisor POC Test Results from Ying Raya DEYA Clemens Chem8+ (11:02:31) Na: 141 mEq/L K: 3.9 [...] antigen (11:18:55) COVID: - Rapid influenza antigen (:18:58) Flu: - .................... .................... .................... .................... .................... .................... .................... . Purification Supervisor Note From Ying Raya: [facility] makes pt contact after being admitted to the home by pt's . He is found seated on the sofa w/ his arm resting on the arm rest and his head resting on that fist. He is conscious and alert and greets [facility]. He doesn't speak much at baseline, [...] She consents to evaluation today for the pt.[facility] obtains vital signs and pt is physically assessed. Nothing remarkable is noted upon physical exam. A 21ga butterfly is used to attempt IV cannulation for blood draw in R forearm and is unsuccessful. A second 21ga butterfly is used in the R forearm for blood draw and is successful. Chem 8+ is performed and results are uploaded. [facility] contacts [facility] to discuss the above findings. [facility] requests a rapid COVID and flu in preparation for the CT. Pt's iCal is noted to be high. Rapid COVID and flu are performed and found to be negative. thanks [facility] for coming.[facility] is clear. Report completed by MICHELLE Raya [id number]. [facility] Lab Orders: rapid SARS CoV 2 Ag, QL IA, respiratory specimen: Performed .................... .................... .................... .................... .................... .................... .................... . [facility] Consulted: Sylvia Valentin .................... .................... .................... .................... .................... .................... .................... . Disposition: Nish Valentin MD [address] [facility],[address], [place], [address], [place] KENDY - [facility] 06/22/2024 13:10:57 07/03/2024 text/html CRC Nurse Triage Notes (Ryann Maldonado - RN): Reason For Request: Cough Patient Reports: Cough, fever greater than 2 days ; Cough Denies: Increased work of breathing/labored with or without fever Discoloration of skin -cyanosis Needs to sleep sitting up, can t catch breath History of asthma, increased use of inhaler COPD COVID Exposure Chief Complaints: Cough PMH: Hypertension, Asthma, Diabetes Mellitus Type 2, Dementia (e.g., Alzheimer's Disease), Osteoarthritis, Cancer Comments: Ballet Master/Mistress verified the member's name//address and phone number. [...] s/s and seek emergency treatment if needed. Purification Supervisor Organization Information for Nick Oconnell Business Legal Name: [employer]. Address: [address] [place] [address], [place] Hand: Mason Willis MD CLIA No.: [id number] Purification Supervisor POC Test Results from Nick Oconnell Rapid COVID antigen (12:55:28) COVID: - Attachments uploaded as part of this test result can be found under Documents section. Rapid influenza antigen (12:55:30) Flu: - Attachments uploaded as part of this test result can be found under Documents section. .................... .................... .................... .................... .................... .................... .................... . Purification Supervisor Note From Nick Oconnell: Dispatched to above [...] reports he has an appointment with his spirits model on Friday for this. [facility] contacted, spoke with Dr. Ramos, advised of patient complaints, exam findings and test results. [facility] believes likely URI, recommends continued home care and monitoring and use of home nebulizer tx q6hrs. Patient and advised of [facility] recommendations, home care and red flags. Patient and understand all recommendations. Patient and have no additional questions or concerns at this time. SC8 clear. EOR. .................... .................... .................... .................... .................... .................... .................... . [facility] Consulted: Reji Ramos .................... .................... .................... .................... .................... .................... .................... . Disposition: Fulfilled REJI RAMOS MD [address] [place] [address],[address], [place], [address], [facility] - [facility] 07/03/2024 21:39:58 07/12/2024 text/html This was a supervised home visit with wood fuel pelletizer Benny Meade. [facility] Nurse Triage Notes (Gilberto Gibbons - RN): Reason For Request: Pt's spouse Sylvia a severe cough>mbr was recently seen by [facility] in the last couple weeks> Patient Reports: Sputum increase ; CoughDenies: Increased work of breathing/labored with or without fever Unable to speak in full sentences without distress Discoloration of skin -cyanosis Needs to sleep sitting up, can t catch breath Shortness of breath in setting of confusion Chief Complaints: CoughPMH: Hypertension, Asthma, Diabetes Mellitus Type 2, Dementia (e.g., Alzheimer's Disease), Osteoarthritis, CancerComments: 2000 pt wanted visit on 07/12 due to the time of the visit was too late Ballet Master/Mistress verified the Pt.'s name//address and phone number. Education provided on the response time and the Pt. was advised to monitor reported s/s and seek emergency treatment if needed. reports the pt is feeling unwell with a cough/cold and congestion - Seen by [facility] on 07/03 - S/S are not improving - Seen by spirits model with a negative chest x-ray -Taking over the counter cough medication with no relief - Follow up requested - [facility] notes: he evaluation revealed a 69-year-old male [...] .................... .................... .................... .................... .................... .................... . Purification Supervisor Note From Benny Meade: This visit is [...] The white states the patient saw his spirits model last week and had a negative chest [...] .................... .................... .................... .................... .................... .................... . [facility] Consulted: Skip Tovar .................... .................... .................... .................... .................... .................... .................... . Disposition: Nish Tovar MD [address] [place] [address],[address], [place], [address], KENDY - [facility] 07/12/2024 12:21:45
== END 2025-01-25 15:59 | disposition home or self-care (01) ==
LOC: HO.HSMS 14:35
PROVIDERS: PCP Internal Medicine; Visit Provider Nurse Practitioner Family
DX: G30.9 Alzheimer's disease, unspecified (principal); F02.80 Dementia in other diseases classified elsewhere, unspecified severity, without behavioral disturbance, psychotic disturbance, mood disturbance, and anxiety; R90.89 Other abnormal findings on diagnostic imaging of central nervous system; R26.9 Unspecified abnormalities of gait and mobility; E85.4 Organ-limited amyloidosis; I68.0 Cerebral amyloid angiopathy; R25.8 Other abnormal involuntary movements; G47.33 Obstructive sleep apnea (adult) (pediatric); G47.9 Sleep disorder, unspecified
CPT/HCPCS: 99214

== ENCOUNTER → 2025-01-25 14:35 | Outpatient (BNVA) | payer OTHER, SELFPAY | PROVIDERS: PCP Internal Medicine; Visit Provider Nurse Practitioner Family | DX: G47.33 Obstructive sleep apnea (adult) (pediatric) (principal); G47.9 Sleep disorder, unspecified; R25.8 Other abnormal involuntary movements; E85.4 Organ-limited amyloidosis; I68.0 Cerebral amyloid angiopathy; G30.9 Alzheimer's disease, unspecified; F02.80 Dementia in other diseases classified elsewhere, unspecified severity, without behavioral disturbance, psychotic disturbance, mood disturbance, and anxiety; R26.9 Unspecified abnormalities of gait and mobility | CPT/HCPCS: 99212 ==

== ENCOUNTER 2025-02-11 09:05 | Outpatient (REF) | payer OTHER, SELFPAY ==
--- NOTE | ~2025-02-11 | MR_ITS ---
CLINICAL HISTORY: ABN MRI, CEREBRAL AMYLOID ANGIOPATHY, RENAL CELL CA MR Brain with and without gadolinium Comparison: MR/REG/SR - MR BRAIN WITHOUT THEN WITH IV CONTRAST - 01/26/24 08:20 EDT MR/REG/SR - MR BRAIN ANGIOGRAPHY WITHOUT IV CONTRAST - 01/26/24 08:20 EDT Findings: Examination degraded by motion artifact. No restricted diffusion. No intra-axial mass nor acute hemorrhage. There is an increased number of multiple low gradient echo signal intensity foci within the bilateral cerebral and cerebellar hemispheres. Age appropriate cerebral volume loss. Patchy low-density within the periventricular and subcortical white matter. No midline shift. No hydrocephalus. Vascular flow voids are intact. Orbital contents are unremarkable. The sinuses and mastoid air cells are clear. No focal bone lesion. IMPRESSION: 1. No acute process. No recent infarct. 2. Volume loss and small vessel ischemic disease. 3. Increased number of low gradient echo signal intensity foci within the cerebrum and cerebellum, compatible with progressive amyloid angiopathy, given the clinical history of such. 4. No evidence of malignancy. This document has been electronically signed by: Brian Mares MD on 02/11/2025 15:31:17
--- OUTSIDE RECORDS SUMMARY | 2025-02-11 09:15 | XMS_ITS | Clinical Summary ---
Author Organization [facility] Address [address] [place] [address] Care Team Providers Care Brush Or Broom Cutter Name Role Phone ChungYuri Primary Care Provider [phone] Allergies Active Allergy Reactions Criticality Noted Date [...] complete this topic Procedures * Due to [place] [employer] law, this organization might not be sharing negative HIV tests. Procedure Name Priority Date/Time Associated Diagnosis Comments AMB EXTERNAL CT CHEST, OUTSIDE RESULT 07/21/2024 COLONOSCOPY 06/21/2009 1:45 PM EST from Last 3 Months or Most Recently Relevant to Health Maintenance Results * Due to [place] [employer] law, this organization might not be sharing [...] Relevant to Health Maintenance Insurance HS/FREE [facility] [facility] [place] [id number] Advance Directives Documents on File Type Date Recorded Patient Mobile Development Manager Expl anation Health Care Proxy 12/13/2020 10:22 AM * Full Code (Latest Code Status on File) Date Activated Date Inactivated Comments 12/27/2020 6:01 AM 12/29/2020 4:55 PM Healthcare Agents on File Name Relationship [facility] Sylvia Bearden Spouse Health Care Agent Elijah Bearden Son Alternate Health Care Agent Care Teams Brush Or Broom Cutter Relationship Specialty Start Date End Date Yuri Wilkes [address] [place] [address] [place] [address] PCP - General Internal Medicine 12/13/20
--- OUTSIDE RECORDS SUMMARY | 2025-02-11 09:15 | XMS_ITS | Patient Health Record ---
Author Organization [facility] Address [address] [facility] [place] [address] Care Team Providers Care Rn Nursery Name Role Phone Chung GONZALES Wimberley Primary Care Provider Rodolfo Tran Unavailable [phone] Allergies No Known Allergies Results Component Value [...] clonazePAM Not-Takin g Vitamin D3 250 MCG (78652 UT) as directed Orally Active Extra Depth [...] Problem Acquired hammer toe of right foot (2900495745338 105) Other hammer toe(s) (acquired), right foot (M20.41) Active confirmed Response to treatment,I mprovement Problem Acquired hammer toe of left foot (3153535888072 103) Other hammer toe(s) (acquired), left foot (M20.42) Active confirmed Response to treatment,I mprovement Problem Type 2 diabetes mellitus with peripheral angiopathy (047075105) Type 2 diabetes mellitus with diabetic peripheral angiopathy without gangrene (E11.51) Active confirmed Q7(A), Q8(2B), Q9(1B,2C) Vital Signs Blood pressure diastolic 86 mm Hg 09/29/2024 Height 5ft 11in in 12/27/2024 Blood pressure systolic 132 mm Hg 09/29/2024 Weight 178 lbs 12/27/2024 BMI 24.82 kg/m2 12/27/2024 Procedures Procedure Date Ordered Date Performed Result Body Sit e 01778-SUNXJXK NAIL, 1-5 03/18/2024 N/A 79048-KBJJ SKIN LESIONS, 2 TO 4 03/18/2024 N/A L7889-RQESCFFH DYSTROPHIC NAILS ANY # 03/18/2024 N/A 20802-WCAGKSL NAIL, 1-5 06/24/2024 N/A 32664-GENT SKIN LESIONS, 2 TO 4 06/24/2024 N/A E5617-VRURWZOZ DYSTROPHIC NAILS ANY # 06/24/2024 N/A 17532-FGMXPCO NAIL, 1-5 09/29/2024 N/A 95340-MGYI SKIN LESIONS, 2 TO 4 09/29/2024 N/A E8248-CDBHODES DYSTROPHIC NAILS ANY # 09/29/2024 N/A 46440-SUVRIMW NAIL, 1-5 12/27/2024 N/A 43695-FZSI SKIN LESIONS, 2 TO 4 12/27/2024 N/A K8426-LPEEGJNX DYSTROPHIC NAILS ANY # 12/27/2024 N/A Encounters Encounter Location Date Provider Diagnosis [address] [address] 03/18/2024 Rodolfo Eusebio Type 2 diabetes mellitus with diabetic peripheral angiopathy without gangrene E11.51 ; Tinea unguium B35.1 ; Pain in right toe(s) M79.674 and Pain in left toe(s) M79.[address] [address] 06/24/2024 Rodolfo Eusebio Type 2 diabetes mellitus with diabetic peripheral angiopathy without gangrene E11.51 ; Tinea unguium B35.1 ; Pain in right toe(s) M79.674 ; Pain in left toe(s) M79.675 ; Other hammer toe(s) (acquired), right foot M20.41 and Other hammer toe(s) (acquired), left foot M20.[address] [address] 09/29/2024 Rodolfo Chenunier Type 2 diabetes mellitus with diabetic peripheral angiopathy without gangrene E11.51 ; Tinea unguium B35.1 ; Pain in right toe(s) M79.674 and Pain in left toe(s) M79.675 [facility] [address] [address] 12/27/2024 Rodolfo Kaplan Type 2 diabetes mellitus with diabetic peripheral angiopathy without gangrene E11.51 ; Tinea unguium B35.1 ; Pain in right toe(s) M79.674 and Pain in left toe(s) M79.675 [facility] [address] [address] 06/14/2024 [facility] [address] 12/23/2024 Rodolfo Kaplan Assessments Encounter Date Diagnosis [...] Treatment Pending Test Test Name Order Date 63138-DZJRBHI NAIL, 1-5 01/07/2024 55391-QDEVVXN NAIL, 1-5 03/18/2024 92951-CGQMUBL NAIL, 1-5 06/24/2024 75652-RBQEEDC NAIL, 1-5 09/29/2024 43836-AGXVHQZ NAIL, 1-5 12/27/2024 43750-FDDM SKIN LESIONS, 2 TO 4 12/28/19 25 79603-YOIR SKIN LESIONS, 2 TO 4 09/30/19 25 66526-LJHT SKIN LESIONS, 2 TO 4 06/24/20 24 46527-JPZI SKIN LESIONS, 2 TO 4 01/07/20 24 69017-PJQE SKIN LESIONS, 2 TO 4 03/18/20 24 F4368-DZTNPVIH DYSTROPHIC NAILS ANY # N8747-HCINDWIX DYSTROPHIC NAILS ANY # W3305-IYECHNFA DYSTROPHIC NAILS ANY # Z4830-CRHDETSU DYSTROPHIC NAILS ANY # N4999-EJMKJKMB DYSTROPHIC NAILS ANY # Next Appt Details Provider Name:Rodolfo Kaplan , 03/24/2025 02:00:00 PM, [address] [facility], [facility] [address], [place], [address], Insurance Providers Payer Name Payer Address Payer Phone Subscriber Number Group Number Insured Name Patient Relationship to Insured Coverage Start Date Coverage End Date [facility] [employer] Claims [address] [place] [address] [phone] [id number] Elijah Bearden Self - patient is the [...]
== END 2025-02-11 09:06 | disposition home or self-care (01) ==
LOC: HO.MRI 09:05
PROVIDERS: PCP Internal Medicine; Visit Provider Nurse Practitioner Family
DX: R90.89 Other abnormal findings on diagnostic imaging of central nervous system (principal); E85.4 Organ-limited amyloidosis; I68.0 Cerebral amyloid angiopathy
CPT/HCPCS: 70553; A9585

== ENCOUNTER → 2025-02-11 09:15 | Outpatient (BNV) | payer OTHER, SELFPAY | PROVIDERS: PCP Internal Medicine; Visit Provider Radiology Diagnostic Radiology | DX: R94.02 Abnormal brain scan (principal) | CPT/HCPCS: 70553 ==

== ENCOUNTER 2025-02-18 13:19 | Outpatient (AMB) | payer OTHER, SELFPAY ==
--- NOTE | 2025-02-18 13:22 | MHC.OFFVIS ---
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 He is accompanied by who provides HPI given h/o dementia. We previously discussed cough is likely multifactorial with contribution from reflux, postnasal drip possibly asthma vs difficulty decreased cough reflex sensitivity related to dementia. Patient has been trialed on PPI, antihistamines, benzonatate, nebulized albuterol/budenoside with continuation of night time cough. His notes patient goes to sleep around 8-9 PM in an upright position, wakes up consistently from 2-3AM with wet cough and persistently throat clearing and after she repositions him he falls back to sleep until 9A without coughing. She denies any symptoms suggestive of infection or other respiratory symptoms. She denies any visits to urgent care or hospitalizations related to respiratory distress. [facility] Medical History Cerebral amyloid angiopathy Obstructive sleep apnea Overweight (BMI 25.0-29.9) Alzheimer's dementia Depression Vitamin D deficiency Memory impairment Renal cell carcinoma of right kidney Essential hypertension Type 2 diabetes mellitus with unspecified complications H/O malignant neoplasm of small intestine Diverticula of colon Kidney mass Anemia Diabetes Hypertension Surgical History Hx of colonoscopy Hx of kidney removal History of esophagogastroduodenoscopy (EGD) H/O sinus surgery Family History Father No problems noted. Mother Heart disease Pancreas cancer Maternal Grandmother Stomach cancer Social History Household Members: Spouse Housing: Apartment Are you a primary child care education coordinator to a significant other at home: No Do you presently have visiting nurse or other home services: No Alcohol intake: former Comment: given as premed Patient Tobacco Use Status: Former Tobacco user Tobacco use type: Cigar e-Cigarette/Vaping Use: Never Used Second Hand Smoke Exposure: No Advance Directives Date on File: 09/12/20 service: No Current occupational status: retired Cognitive needs: No Hearing needs: No Vision needs: Yes (glasses) Review of Systems Const All systems reviewed & are unremarkable except as noted in HPI and below Denies excessive sweating, Denies fever(s) and Denies night sweats ENT Reports Normal hearing present Card Denies leg edema, Denies dyspnea on exertion, Denies orthopnea and Denies paroxysmal nocturnal dyspnea Resp Denies excessive phlegm production, Denies pain on inspiration, Denies pain with cough, Denies dyspnea on exertion and Denies stridor Neuro Reports Normal hearing present Endo Denies excessive sweating Aller/Immun Denies seasonal rhinorrhea Physical Exam Vital Signs: Last Vital Signs Pulse 76 02/18/25 13:23 BP 110/58 L 02/18/25 13:23 Pulse Ox 97 02/18/25 13:23 Oxygen Delivery Method Room Air 02/18/25 13:23 BMI result Body Mass Index 24.9 Const General: comfortable, no acute distress, well developed and alert HEENT Head: Yes normal to inspection, Yes normocephalic and Yes atraumatic Ears: hearing grossly normal bilaterally and external ears normal Eyes General: appearance normal, both eyes and all related structures Eyelids: Yes eyelids normal Sclerae: sclerae normal EOM: EOMs intact bilaterally Neck Neck: Yes normal visual inspection and Yes no lymphadenopathy Lymphatic: no lymphadenopathy noted Chest Chest palpation & inspection: normal inspection of the chest Resp Effort & Inspection: normal respiratory effort, able to speak in complete sentences, no audible wheezes, no stridor, not tachypneic, no tripod positioning and no use of accessory muscles Auscultation: diminished lung sounds Cardio Jugular venous distension: no JVD Rate: regular rate Rhythm: regular rhythm Skin Other: warm, dry General skin exam: no rashes or lesions noted Neuro Cranial nerves: Yes Normal hearing present Cognition (Neuro): normal cognition Gait exam (Neuro): Normal gait present Extrem General: Yes normal to inspection, Yes capillary refill normal, Yes no clubbing, cyanosis or edema and Yes no pedal edema Psych Appearance: grossly normal and well kempt Affect: Blunted affect present Insight: Limited insight present (Psych) Judgement: Limited judgement present (Psych) Assessment & Plan Assessment & Plan (1) Chronic bronchitis: Code(s): J42 - Unspecified chronic bronchitis Category: Medical (2) Cough: Code(s): R05.9 - Cough, unspecified Category: Medical (3) Dementia: Code(s): F03.90 - Unspecified dementia, unspecified severity, without behavioral disturbance, psychotic disturbance, mood disturbance, and anxiety Category: Medical Plan Unclear etiology of cough however likely multifactorial, possibly related to underlying asthma vs disease process although prior MBSS unremarkable. Prior CT chest and CXR unremarkable other than bronchial thickening. Encouraged patient to trial Mucinex to see if patient benefits. She is aware to call if symptoms worsen. All questions were answered and patient is in agreement of plan. Will follow-up in 3 months or sooner if needed. Coding Level of Care Code Est Pt Level 4 (57780) Diagnoses Chronic bronchitis J42 Cough R05.9 Dementia F03.90
[2025-02-18 13:23] VITALS: BP 110/58; PULSE 76; O2SAT 97; BMI 24.9
--- OUTSIDE RECORDS SUMMARY | 2025-02-18 13:23 | XMS_ITS | Clinical Summary ---
Author Organization [facility] Address [address] [place] [address] Care Team Providers Care Director Of Web Marketing Name Role Phone ChungYuri Primary Care Provider [phone] Allergies Active Allergy Reactions Criticality Noted Date [...] complete this topic Procedures * Due to [place] [employer] law, this organization might not be sharing negative HIV tests. Procedure Name Priority Date/Time Associated Diagnosis Comments AMB EXTERNAL CT CHEST, OUTSIDE RESULT 07/21/2024 COLONOSCOPY 06/21/2009 1:45 PM EST from Last 3 Months or Most Recently Relevant to Health Maintenance Results * Due to [place] [employer] law, this organization might not be sharing [...] Relevant to Health Maintenance Insurance HS/FREE CARE [facility] [employer] [place] [id number] Advance Directives Documents on File Type Date Recorded Patient Industrial Seamstress Expl anation Health Care Proxy 12/13/2020 10:22 AM * Full Code (Latest Code Status on File) Date Activated Date Inactivated Comments 12/27/2020 6:01 AM 12/29/2020 4:55 PM Healthcare Agents on File Name Relationship [facility] Sylvia Bearden Spouse Health Care Agent Elijah Bearden Son Alternate Health Care Agent Care Teams Director Of Web Marketing Relationship Specialty Start Date End Date Yuri Wilkes [address] [place] [address] [place] [address] PCP - General Internal Medicine 12/13/20
--- OUTSIDE RECORDS SUMMARY | 2025-02-18 13:23 | XMS_ITS | Patient Health Record ---
Author Organization [facility] Address [address] [facility] [place] [address] Care Team Providers Care Education Professional Name Role Phone Chung GONZALES Baldwin Primary Care Provider Rodolfo Tran Unavailable [phone] Allergies No Known Allergies Results Component Value [...] clonazePAM Not-Takin g Vitamin D3 250 MCG (94825 UT) as directed Orally Active Extra Depth [...] Problem Acquired hammer toe of right foot (9287005239056 105) Other hammer toe(s) (acquired), right foot (M20.41) Active confirmed Response to treatment,I mprovement Problem Acquired hammer toe of left foot (2470157455711 103) Other hammer toe(s) (acquired), left foot (M20.42) Active confirmed Response to treatment,I mprovement Problem Type 2 diabetes mellitus with peripheral angiopathy (224163401) Type 2 diabetes mellitus with diabetic peripheral angiopathy without gangrene (E11.51) Active confirmed Q7(A), Q8(2B), Q9(1B,2C) Vital Signs Blood pressure diastolic 86 mm Hg 09/29/2024 Height 5ft 11in in 12/27/2024 Blood pressure systolic 132 mm Hg 09/29/2024 Weight 178 lbs 12/27/2024 BMI 24.82 kg/m2 12/27/2024 Procedures Procedure Date Ordered Date Performed Result Body Sit e 20698-DIPOBOJ NAIL, 1-5 03/18/2024 N/A 72643-SXEZ SKIN LESIONS, 2 TO 4 03/18/2024 N/A L8814-ABHGZERH DYSTROPHIC NAILS ANY # 03/18/2024 N/A 58956-KVUOYOR NAIL, 1-5 06/24/2024 N/A 76984-KXGR SKIN LESIONS, 2 TO 4 06/24/2024 N/A I8153-RXYKVJYM DYSTROPHIC NAILS ANY # 06/24/2024 N/A 84262-LCHVHFB NAIL, 1-5 09/29/2024 N/A 99822-ZTHI SKIN LESIONS, 2 TO 4 09/29/2024 N/A Q7789-QUUIEZZA DYSTROPHIC NAILS ANY # 09/29/2024 N/A 58342-XHJDBRY NAIL, 1-5 12/27/2024 N/A 13520-PBSY SKIN LESIONS, 2 TO 4 12/27/2024 N/A S9651-YZBPMCZU DYSTROPHIC NAILS ANY # 12/27/2024 N/A Encounters Encounter Location Date Provider Diagnosis [address] [address] 03/18/2024 Rodolfo Eusebio Type 2 diabetes mellitus with diabetic peripheral angiopathy without gangrene E11.51 ; Tinea unguium B35.1 ; Pain in right toe(s) M79.674 and Pain in left toe(s) M79.[address] [address] 06/24/2024 Rodolfo Eusebio Type 2 diabetes mellitus with diabetic peripheral angiopathy without gangrene E11.51 ; Tinea unguium B35.1 ; Pain in right toe(s) M79.674 ; Pain in left toe(s) M79.675 ; Other hammer toe(s) (acquired), right foot M20.41 and Other hammer toe(s) (acquired), left foot M20.[address] [address] 09/29/2024 Rodolfo Chenunier Type 2 diabetes mellitus with diabetic peripheral angiopathy without gangrene E11.51 ; Tinea unguium B35.1 ; Pain in right toe(s) M79.674 and Pain in left toe(s) M79.675 [facility] [address] [address] 12/27/2024 Rodolfo Kaplan Type 2 diabetes mellitus with diabetic peripheral angiopathy without gangrene E11.51 ; Tinea unguium B35.1 ; Pain in right toe(s) M79.674 and Pain in left toe(s) M79.675 [facility] [address] [address] 06/14/2024 [facility] [address] 12/23/2024 Rodolfo Kaplan Assessments Encounter Date Diagnosis [...] Treatment Pending Test Test Name Order Date 99450-NDOUXGQ NAIL, 1-5 01/07/2024 87060-EFLVGKJ NAIL, 1-5 03/18/2024 49686-ZOGIQCI NAIL, 1-5 06/24/2024 07976-SYNCPPF NAIL, 1-5 09/29/2024 77239-ETGGGXN NAIL, 1-5 12/27/2024 51849-HDTY SKIN LESIONS, 2 TO 4 12/28/19 25 29343-BCGD SKIN LESIONS, 2 TO 4 09/30/19 25 43393-NRHQ SKIN LESIONS, 2 TO 4 06/24/20 24 64026-SRQG SKIN LESIONS, 2 TO 4 01/07/20 24 06071-WDQV SKIN LESIONS, 2 TO 4 03/18/20 24 A1721-KEYIJXVV DYSTROPHIC NAILS ANY # H7747-ZDUNUAFO DYSTROPHIC NAILS ANY # H8426-CUMGYARO DYSTROPHIC NAILS ANY # E6897-MYMCVWYV DYSTROPHIC NAILS ANY # O8243-EOSQQTJL DYSTROPHIC NAILS ANY # Next Appt Details Provider Name:Rodolfo Kaplan , 03/24/2025 02:00:00 PM, [address] [facility], [facility] [address], [place], [address], Insurance Providers Payer Name Payer Address Payer Phone Subscriber Number Group Number Insured Name Patient Relationship to Insured Coverage Start Date Coverage End Date [facility] [employer] Claims [address] [place] [address] [phone] [id number] Elijah Bearden Self - patient is the [...]
== END 2025-02-18 13:46 | disposition home or self-care (01) ==
LOC: HO.HPSW 13:20
PROVIDERS: PCP Internal Medicine; Visit Provider Nurse Practitioner Family
DX: J42 Unspecified chronic bronchitis (principal); R05.9 Cough, unspecified; F03.90 Unspecified dementia, unspecified severity, without behavioral disturbance, psychotic disturbance, mood disturbance, and anxiety
CPT/HCPCS: 99214

== ENCOUNTER → 2025-02-18 13:19 | Outpatient (BNVA) | payer OTHER, SELFPAY | PROVIDERS: PCP Internal Medicine; Visit Provider Nurse Practitioner Family | DX: G47.33 Obstructive sleep apnea (adult) (pediatric) (principal); J42 Unspecified chronic bronchitis; F03.90 Unspecified dementia, unspecified severity, without behavioral disturbance, psychotic disturbance, mood disturbance, and anxiety; R05.9 Cough, unspecified; E11.9 Type 2 diabetes mellitus without complications; I10 Essential (primary) hypertension | CPT/HCPCS: 99212 ==

== ENCOUNTER 2025-03-18 09:10 | Outpatient (REF) | payer OTHER, SELFPAY ==
--- OUTSIDE RECORDS SUMMARY | 2024-06-14 09:00 | XMS_ITS ---
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 Farmer Name Role Phone Yuri Wilkes MD Primary Care Provider UnaRodolfo Jenkins Unavailable [phone] Encounters Encounter Location Date Provider Diagnosis [address] [address] 06/14/2024 Rodolfo Kaplan Plan Of Treatment Next Appt Details Provider Name:Rodolfo Kaplan , 03/24/2025 02:00:00 PM, [facility] [address], [place], [address], Progress Notes * SULEIMANDomenicjostinDOB:1955 ( 70 yo M)Acc No.[id number]:06/14/2024 Progress Note Patient: Elijah GARAY Provider: Luz Kaplan DPM :1955 A ge:69 Y S ex:Male Date:06/14/2024 Address:[address] [id number] Pcp:Yuri Wilkes MD Subjective: * Chief Complaints: [...] 08/15/2023 Generated for Shanon bedoya/Stephanie/Leonor on: 0 03/18/2025 10:05 AM EDT
--- OUTSIDE RECORDS SUMMARY | 2024-12-23 10:45 | XMS_ITS ---
Author [facility] Address [address] [place] [address] Care Team Providers Care Code And Test Clerk Name Role Phone Yuri Wilkes MD Primary Care Provider UnaRodolfo Jenkins Unavailable [phone] Encounters Encounter Location Date Provider Diagnosis [address] [address] 12/23/2024 Rodolfo Kaplan Plan Of Treatment Next Appt Details Provider Name:Rodolfo Kaplan , 03/24/2025 02:00:00 PM, [facility] [address], [place], [address], Progress Notes * SULEIMANDomenicjostinDOB:1955 ( 70 yo M)Acc No.[id number]:12/23/2024 Progress Note Patient: Elijah GARAY Provider: Luz Kaplan DPM :1955 A ge:69 Y S ex:Male Date:12/23/2024 Address:[address] [id number] Pcp:Yuri Wilkes MD Subjective: * Chief Complaints: [...] Kaplan DPM Date: 0 12/23/2024 Generated for Shanon bedoya/Stephanie/Leonor on: 0 03/18/2025 10:05 AM EDT
--- NOTE | ~2025-03-18 | XR_ITS ---
EXAMINATION: XR CHEST CLINICAL INFORMATION: R05.8 - Other specified cough COMPARISON: Chest radiograph on October 28, 2024 TECHNIQUE: 2 views of the chest were obtained. FINDINGS: Patient's chin overlies the left lung apex. No focal consolidation. No pneumothorax or pleural effusion seen. Cardiomediastinal silhouette is within normal limits. No acute osseous abnormalities. XR/XR chest 2V IMPRESSION: No acute cardiopulmonary process. Electronically signed by: Alejandro Estrada MD 03/18/2025 09:33 AM EDT
--- OUTSIDE RECORDS SUMMARY | 2025-03-18 10:04 | XMS_ITS | Clinical Summary ---
Author Organization [facility] Address [address] [place] [address] Care Team Providers Care Principal Scientist Name Role Phone ChungYuri Primary Care Provider [phone] Allergies Active Allergy Reactions Criticality Noted Date [...] complete this topic Procedures * Due to [place] [employer] law, this organization might not be sharing negative HIV tests. Procedure Name Priority Date/Time Associated Diagnosis Comments AMB EXTERNAL CT CHEST, OUTSIDE RESULT 07/21/2024 COLONOSCOPY 06/21/2009 1:45 PM EST from Last 3 Months or Most Recently Relevant to Health Maintenance Results * Due to [place] [employer] law, this organization might not be sharing [...] Relevant to Health Maintenance Insurance HS/FREE CARE [facility] [employer] [place] [id number] Advance Directives Documents on File Type Date Recorded Patient Icu Nurse Expl anation Health Care Proxy 12/13/2020 10:22 AM * Full Code (Latest Code Status on File) Date Activated Date Inactivated Comments 12/27/2020 6:01 AM 12/29/2020 4:55 PM Healthcare Agents on File Name Relationship [facility] Sylvia Bearden Spouse Health Care Agent Elijah Bearden Son Alternate Health Care Agent Care Teams Principal Scientist Relationship Specialty Start Date End Date Yuri Wilkes [address] [place] [address] [place] [address] PCP - General Internal Medicine 12/13/20
--- OUTSIDE RECORDS SUMMARY | 2025-03-18 10:05 | XMS_ITS | Patient Health Record ---
Author Organization [facility] Address [address] [place] [address] Care Team Providers Care Roof Designer Name Role Phone Chung GONZALES [place] Primary Care Provider Rodolfo Tran Unavailable [phone] Allergies No Known Allergies Results Component Value [...] clonazePAM Not-Takin g Vitamin D3 250 MCG (75863 UT) as directed Orally Active Extra Depth [...] Problem Acquired hammer toe of right foot (7551710789310 105) Other hammer toe(s) (acquired), right foot (M20.41) Active confirmed Response to treatment,I mprovement Problem Acquired hammer toe of left foot (5241318166696 103) Other hammer toe(s) (acquired), left foot (M20.42) Active confirmed Response to treatment,I mprovement Problem Type 2 diabetes mellitus with peripheral angiopathy (604912968) Type 2 diabetes mellitus with diabetic peripheral angiopathy without gangrene (E11.51) Active confirmed Q7(A), Q8(2B), Q9(1B,2C) Vital Signs Blood pressure diastolic 86 mm Hg 09/29/2024 Height 5ft 11in in 12/27/2024 Blood pressure systolic 132 mm Hg 09/29/2024 Weight 178 lbs 12/27/2024 BMI 24.82 kg/m2 12/27/2024 Procedures Procedure Date Ordered Date Performed Result Body Sit e 75381-JFAWWWH NAIL, 1-5 03/18/2024 N/A 12194-DOFN SKIN LESIONS, 2 TO 4 03/18/2024 N/A O2241-DDSETDJZ DYSTROPHIC NAILS ANY # 03/18/2024 N/A 33496-VRAXBFQ NAIL, 1-5 06/24/2024 N/A 75245-DFUG SKIN LESIONS, 2 TO 4 06/24/2024 N/A P0287-PBVIARRL DYSTROPHIC NAILS ANY # 06/24/2024 N/A 29318-RJRJNDA NAIL, 1-5 09/29/2024 N/A 08639-KOIJ SKIN LESIONS, 2 TO 4 09/29/2024 N/A J2912-SMZRVOUW DYSTROPHIC NAILS ANY # 09/29/2024 N/A 58985-FKVVASR NAIL, 1-5 12/27/2024 N/A 54834-ZJKS SKIN LESIONS, 2 TO 4 12/27/2024 N/A L3385-VYLATPDW DYSTROPHIC NAILS ANY # 12/27/2024 N/A Encounters Encounter Location Date Provider Diagnosis [address] [address] 03/18/2024 Rodolfo Eusebio Type 2 diabetes mellitus with diabetic peripheral angiopathy without gangrene E11.51 ; Tinea unguium B35.1 ; Pain in right toe(s) M79.674 and Pain in left toe(s) M79.[address] [address] 06/24/2024 Rodolfo Eusebio Type 2 diabetes mellitus with diabetic peripheral angiopathy without gangrene E11.51 ; Tinea unguium B35.1 ; Pain in right toe(s) M79.674 ; Pain in left toe(s) M79.675 ; Other hammer toe(s) (acquired), right foot M20.41 and Other hammer toe(s) (acquired), left foot M20.[address] [address] 09/29/2024 Rodolfo Chenunier Type 2 diabetes mellitus with diabetic peripheral angiopathy without gangrene E11.51 ; Tinea unguium B35.1 ; Pain in right toe(s) M79.674 and Pain in left toe(s) M79.675 [facility] [address] [address] 12/27/2024 Rodolfo Kaplan Type 2 diabetes mellitus with diabetic peripheral angiopathy without gangrene E11.51 ; Tinea unguium B35.1 ; Pain in right toe(s) M79.674 and Pain in left toe(s) M79.675 [facility] [address] [address] 06/14/2024 Rodolfo Kaplan [facility] [address] 12/23/2024 Rodolfo Kaplan Assessments Encounter Date Diagnosis [...] Treatment Pending Test Test Name Order Date 81099-WPYWTXL NAIL, 1-5 01/07/2024 78956-XYJOVLO NAIL, 1-5 03/18/2024 10985-LNMKBDL NAIL, 1-5 06/24/2024 79699-KGPFSIE NAIL, 1-5 09/29/2024 56787-TZVRTMN NAIL, 1-5 12/27/2024 34751-YGZM SKIN LESIONS, 2 TO 4 12/28/19 25 60762-CFWJ SKIN LESIONS, 2 TO 4 09/30/19 25 02466-HRYZ SKIN LESIONS, 2 TO 4 06/24/20 24 56059-UMQD SKIN LESIONS, 2 TO 4 01/07/20 24 88501-JIZY SKIN LESIONS, 2 TO 4 03/18/20 24 A4958-DCDLFBDR DYSTROPHIC NAILS ANY # Q0111-RSRQCKMS DYSTROPHIC NAILS ANY # X2446-SWGSJYFW DYSTROPHIC NAILS ANY # Z6736-THBFPPUX DYSTROPHIC NAILS ANY # T6446-BGDJBHUI DYSTROPHIC NAILS ANY # Next Appt Details Provider Name:Rodolfo Kaplan , 03/24/2025 02:00:00 PM, [address] [facility], [facility] [address], [place], [address], Insurance Providers Payer Name Payer Address Payer Phone Subscriber Number Group Number Insured Name Patient Relationship to Insured Coverage Start Date Coverage End Date [facility] [employer] Claims [address] [place] [address] [phone] [id number] Elijah Bearden Self - patient is the [...]
== END 2025-03-18 09:11 | disposition home or self-care (01) ==
LOC: HO.XRAY 09:10
PROVIDERS: PCP Internal Medicine; Visit Provider Nurse Practitioner Family
DX: R05.8 Other specified cough (principal)
CPT/HCPCS: 71046

== ENCOUNTER → 2025-03-18 09:17 | Outpatient (BNV) | payer OTHER, SELFPAY | PROVIDERS: PCP Internal Medicine; Visit Provider Radiology Body Imaging | DX: R05.8 Other specified cough (principal) | CPT/HCPCS: 71046 ==

== ENCOUNTER 2025-04-04 10:05 | Day surgery (SDC) | payer OTHER, SELFPAY ==
--- OUTSIDE RECORDS SUMMARY | 2024-06-14 09:00 | XMS_ITS ---
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 Name Role Phone Yuri Wilkes MD Primary Care Provider UnaRodolfo Jenkins Unavailable [phone] Encounters Encounter Location Date Provider Diagnosis [address] [address] 06/14/2024 Rodolfo Kaplan Plan Of Treatment Next Appt Details Provider Name:Rodolfo Kaplan , 03/24/2025 02:00:00 PM, [facility] [address], [place], [address], Progress Notes * SULEIMANDomenicjostinDOB:1955 ( 69 yo M)Acc No.[id number]:06/14/2024 Progress Note Patient: Elijah GARAY Provider: Luz Kaplan DPM :1955 A ge:69 Y S ex:Male Date:06/14/2024 Address:[address] [id number] Pcp:Yuri Wilkes MD Subjective: * Chief Complaints: * * Medical History: Objective: * Vitals: Assessment: Plan: * Treatment: * Images: * The named appointment provid er may or may not be the originator of this progress note, and it is not deemed complete until electronically signed by the appointment provider. Sign off status: Pending * Provider: Luz Kaplan DPM Date: 1 08/15/2023 Generated for Shanon bedoya/Stephanie/Leonor on: 0 03/11/2025 12:51 PM EDT
--- OUTSIDE RECORDS SUMMARY | 2024-12-23 10:45 | XMS_ITS ---
Author Organization [facility] Address [address] [place] [address] Care Team Providers Care Lab Director Name Role Phone Yuri Wilkes MD Primary Care Provider UnaRodolfo Jenkins Unavailable [phone] Encounters Encounter Location Date Provider Diagnosis [address] [address] 12/23/2024 Rodolfo Kaplan Plan Of Treatment Next Appt Details Provider Name:Rodolfo Kaplan , 03/24/2025 02:00:00 PM, Pending sale to [facility] [address], [place], [address], Progress Notes * SULEIMANDomenicjostinDOB:1955 ( 69 yo M)Acc No.[id number]:12/23/2024 Progress Note Patient: Elijah GARAY Provider: Luz Kaplan DPM :1955 A ge:69 Y S ex:Male Date:12/23/2024 Address:[address] [id number] Pcp:Yuri Wilkes MD Subjective: * Chief Complaints: [...] 12/23/2024 Generated for Shanon bedoya/Stephanie/Leonor on: 0 03/11/2025 12:50 PM EDT
--- OUTSIDE RECORDS SUMMARY | 2025-03-11 12:51 | XMS_ITS | Patient Health Record ---
Author Organization [facility] Address [address] [place] [address] Care Team Providers Care Heating Equipment Repairer Name Role Phone Chung GONZALES Ballard Primary Care Provider Rodolfo Tran Unavailable [phone] Allergies No Known Allergies Results Component Value [...] clonazePAM Not-Takin g Vitamin D3 250 MCG (89039 UT) as directed Orally Active Extra Depth [...] Problem Acquired hammer toe of right foot (5752325862880 105) Other hammer toe(s) (acquired), right foot (M20.41) Active confirmed Response to treatment,I mprovement Problem Acquired hammer toe of left foot (9484378409135 103) Other hammer toe(s) (acquired), left foot (M20.42) Active confirmed Response to treatment,I mprovement Problem Type 2 diabetes mellitus with peripheral angiopathy (735618537) Type 2 diabetes mellitus with diabetic peripheral angiopathy without gangrene (E11.51) Active confirmed Q7(A), Q8(2B), Q9(1B,2C) Vital Signs Blood pressure diastolic 86 mm Hg 09/29/2024 Height 5ft 11in in 12/27/2024 Blood pressure systolic 132 mm Hg 09/29/2024 Weight 178 lbs 12/27/2024 BMI 24.82 kg/m2 12/27/2024 Procedures Procedure Date Ordered Date Performed Result Body Sit e 55835-KTAGKDD NAIL, 1-5 03/18/2024 N/A 61220-NLIC SKIN LESIONS, 2 TO 4 03/18/2024 N/A O5851-JLDHMQTQ DYSTROPHIC NAILS ANY # 03/18/2024 N/A 69446-JETXJAG NAIL, 1-5 06/24/2024 N/A 38765-DLLB SKIN LESIONS, 2 TO 4 06/24/2024 N/A F0343-NXNIBZVS DYSTROPHIC NAILS ANY # 06/24/2024 N/A 76596-MEPFCXB NAIL, 1-5 09/29/2024 N/A 99194-SMOV SKIN LESIONS, 2 TO 4 09/29/2024 N/A I0003-SDOQPOZS DYSTROPHIC NAILS ANY # 09/29/2024 N/A 48603-XUZCFXC NAIL, 1-5 12/27/2024 N/A 44692-KHAL SKIN LESIONS, 2 TO 4 12/27/2024 N/A K7460-ZECLSNCW DYSTROPHIC NAILS ANY # 12/27/2024 N/A Encounters Encounter Location Date Provider Diagnosis [address] [address] 03/18/2024 Rodolfo Eusebio Type 2 diabetes mellitus with diabetic peripheral angiopathy without gangrene E11.51 ; Tinea unguium B35.1 ; Pain in right toe(s) M79.674 and Pain in left toe(s) M79.[address] [address] 06/24/2024 Rodolfo Eusebio Type 2 diabetes mellitus with diabetic peripheral angiopathy without gangrene E11.51 ; Tinea unguium B35.1 ; Pain in right toe(s) M79.674 ; Pain in left toe(s) M79.675 ; Other hammer toe(s) (acquired), right foot M20.41 and Other hammer toe(s) (acquired), left foot M20.[address] [address] 09/29/2024 Rodolfo Chenunier Type 2 diabetes mellitus with diabetic peripheral angiopathy without gangrene E11.51 ; Tinea unguium B35.1 ; Pain in right toe(s) M79.674 and Pain in left toe(s) M79.675 [facility] [address] [address] 12/27/2024 Rodolfo Kaplan Type 2 diabetes mellitus with diabetic peripheral angiopathy without gangrene E11.51 ; Tinea unguium B35.1 ; Pain in right toe(s) M79.674 and Pain in left toe(s) M79.675 [facility] [address] [address] 06/14/2024 [facility] Kaplan [facility] [address] 12/23/2024 Rodolfo Kaplan Assessments Encounter Date Diagnosis [...] Treatment Pending Test Test Name Order Date 91394-DMRSPPG NAIL, 1-5 01/07/2024 66703-UECPRDN NAIL, 1-5 03/18/2024 78882-IAZHONK NAIL, 1-5 06/24/2024 43195-HVVOTGR NAIL, 1-5 09/29/2024 14924-RVKIYKU NAIL, 1-5 12/27/2024 23247-EXHR SKIN LESIONS, 2 TO 4 12/28/19 25 84785-LLVL SKIN LESIONS, 2 TO 4 09/30/19 25 42313-NTXA SKIN LESIONS, 2 TO 4 06/24/20 24 58893-CFDI SKIN LESIONS, 2 TO 4 01/07/20 24 40571-BGDM SKIN LESIONS, 2 TO 4 03/18/20 24 Q9526-JLEMKQZO DYSTROPHIC NAILS ANY # P0108-KTDHXKNQ DYSTROPHIC NAILS ANY # T9687-ZAUSQHXM DYSTROPHIC NAILS ANY # A9969-LYVTDOIX DYSTROPHIC NAILS ANY # G5048-DPESTPFM DYSTROPHIC NAILS ANY # Next Appt Details Provider Name:Rodolfo Kaplan , 03/24/2025 02:00:00 PM, [address] [facility], [facility] [address], [place], [address], Insurance Providers Payer Name Payer Address Payer Phone Subscriber Number Group Number Insured Name Patient Relationship to Insured Coverage Start Date Coverage End Date [facility] [employer] Claims [address] [place] [address] [phone] [id number] Elijah Bearden Self - patient is the [...]
--- OUTSIDE RECORDS SUMMARY | 2025-03-11 12:51 | XMS_ITS | Clinical Summary ---
Author Organization [facility] Address [address] [place] [address] Care Team Providers Care Buffing Line Set Up Worker Name Role Phone ChungYuri Primary Care Provider [phone] Allergies Active Allergy Reactions Criticality Noted Date [...] Date Last Done Comments Colonoscopy 06/21/2014 06/21/2009 Alcohol/Substance Use Screening 07/07/2024 Health Care Proxy Review 07/07/2024 COVID-19 Vaccine ( season) 2025 07/04/2021, 11/06/2020, 10/07/2020 Influenza Vaccine (#1) 2025 , 03/24/2023, 04/25/2022, [...] complete this topic Procedures * Due to [place] [employer] law, this organization might not be sharing negative HIV tests. Procedure Name Priority Date/Time Associated Diagnosis Comments AMB EXTERNAL CT CHEST, OUTSIDE RESULT 07/21/2024 COLONOSCOPY 06/21/2009 1:45 PM EST from Last 3 Months or Most Recently Relevant to Health Maintenance Results * Due to [place] [employer] law, this organization might not be sharing [...] Relevant to Health Maintenance Insurance HS/FREE CARE [facility] [employer] [place] [id number] Advance Directives Documents on File Type Date Recorded Patient Client Customer Manager Expl anation Health Care Proxy 12/13/2020 10:22 AM * Full Code (Latest Code Status on File) Date Activated Date Inactivated Comments 12/27/2020 6:01 AM 12/29/2020 4:55 PM Healthcare Agents on File Name Relationship [facility] Sylvia Bearden Spouse Health Care Agent Elijah Bearden Son Alternate Health Care Agent Care Teams Buffing Line Set Up Worker Relationship Specialty Start Date End Date Yuri Wilkes [address] [place] [address] [place] [address] PCP - General Internal Medicine 12/13/20
--- NOTE | 2025-03-23 13:20 | HO.ANESPROP2 ---
Documented by User: Tata Tafoya NP 03/31/25 15:04 HPI - Anesthesia Eval Consult details Narrative: 70 yr old male for colonoscopy scheduled for 04/04/25 Alzheimer's dementia: usually accompanies pt to provider hx Type 2 DM: A1C 7.2% 11/2024 Chronic bronchitis: seen by [facility] pulmonary 02/2025, was encouraged to trial Mucinex; 03/18/25 chest xray was neg for acute cardiopulmonary process JACI: not on CPAP PMFSH Active Problems Active Problems: All Active Problems Chronic bronchitis (Acute) Hypervitaminosis, B complex (Acute) Low vitamin B12 level (Acute) Dysphagia (Acute) Numbness and tingling of both lower extremities (Acute) Recurrent cough (Acute) Environmental allergies (Acute) Gait difficulty (Acute) Bradykinesia (Acute) Respiratory tract infection (Acute) Dementia in Alzheimer's disease (Acute) Lower extremity weakness (Acute) Cerebral amyloid angiopathy (Acute) Incontinence (Acute) Weight loss, unintentional (Acute) Decreased oral intake (Acute) Sleep difficulties (Acute) Abnormal brain MRI (Acute) Anemia (Acute) Obstructive sleep apnea (Acute) Daytime sleepiness (Acute) Snoring (Acute) Overweight (BMI 25.0-29.9) (Acute) Gastritis (Acute) Alzheimer's dementia (Acute) Dementia (Acute) Depression (Acute) Hyperlipidemia (Acute) Insomnia (Acute) Vitamin D deficiency (Acute) Memory impairment (Acute) Annual physical exam (Acute) Small bowel carcinoma (Chronic) SOB (shortness of breath) on exertion (Acute) Chemotherapy follow-up examination (Acute) Annual physical exam (Acute) Upper respiratory symptom (Acute) History of colon polyps (Acute) H/O malignant neoplasm of small intestine (Acute) Renal cell carcinoma of right kidney (Acute) Essential hypertension (Acute) Type 2 diabetes mellitus with unspecified complications (Acute) Past Medical History Medical History Cerebral amyloid angiopathy Obstructive sleep apnea Overweight (BMI 25.0-29.9) Alzheimer's dementia Depression Vitamin D deficiency Memory impairment Renal cell carcinoma of right kidney Essential hypertension Type 2 diabetes mellitus with unspecified complications H/O malignant neoplasm of small intestine Diverticula of colon Kidney mass Anemia Diabetes Hypertension Family History Family History Father No problems noted. Mother Heart disease Pancreas cancer Maternal Grandmother Stomach cancer Family history of problems with anesthesia: No Surgical History Surgical History Hx of colonoscopy Hx of kidney removal History of esophagogastroduodenoscopy (EGD) H/O sinus surgery History of Problems with Anesthesia: No Social History Social History Household Members: Spouse Housing: Apartment Are you a primary director of managed care to a significant other at home: No Do you presently have visiting nurse or other home services: Yes Alcohol intake: former Comment: given as premed Patient Tobacco Use Status: Former Tobacco user Tobacco use type: Cigar e-Cigarette/Vaping Use: Never Used Second Hand Smoke Exposure: No Have you been hit, kicked, punched, or otherwise hurt by someone within the past year? If so, by whom?: No Are you DNR?: No Advance Directives: No Advance Directives Information Provided: Yes Advance Directives Date on File: 09/12/20 Poor oral hygiene: No service: No Current occupational status: retired Cognitive needs: No Hearing needs: No Vision needs: Yes (glasses) Meds Allergies Allergy/AdvReac Type Severity Reaction Status Date / Time No Known Allergies (No Known Allergy Verified 04/04/25 11:08 Allergies*) Exam Narrative Narrative: Brain MRI 02/2025 IMPRESSION: 1. No acute process. No recent infarct. 2. Volume loss and small vessel ischemic disease. 3. Increased number of low gradient echo signal intensity foci within the cerebrum and cerebellum, compatible with progressive amyloid angiopathy, given the clinical history of such. 4. No evidence of malignancy. Assessment and Plan Final Anesthetic Review Family History of Problems with Anesthesia: No History of Problems with Anesthesia: No Documented by User: Janak Knutson MD 04/04/25 13:09 PMFSH Past Medical History Medical History Cerebral amyloid angiopathy Obstructive sleep apnea Overweight (BMI 25.0-29.9) Alzheimer's dementia Depression Vitamin D deficiency Memory impairment Renal cell carcinoma of right kidney Essential hypertension Type 2 diabetes mellitus with unspecified complications H/O malignant neoplasm of small intestine Diverticula of colon Kidney mass Anemia Diabetes Hypertension Family History Family History Father No problems noted. Mother Heart disease Pancreas cancer Maternal Grandmother Stomach cancer Surgical History Surgical History Hx of colonoscopy Hx of kidney removal History of esophagogastroduodenoscopy (EGD) H/O sinus surgery Social History Social History Household Members: Spouse Housing: Apartment Are you a primary director of managed care to a significant other at home: No Do you presently have visiting nurse or other home services: Yes Alcohol intake: former Comment: given as premed Patient Tobacco Use Status: Former Tobacco user Tobacco use type: Cigar e-Cigarette/Vaping Use: Never Used Second Hand Smoke Exposure: No Have you been hit, kicked, punched, or otherwise hurt by someone within the past year? If so, by whom?: No Are you DNR?: No Advance Directives: No Advance Directives Information Provided: Yes Advance Directives Date on File: 09/12/20 Poor oral hygiene: No service: No Current occupational status: retired Cognitive needs: No Hearing needs: No Vision needs: Yes (glasses) Meds Allergies Allergy/AdvReac Type Severity Reaction Status Date / Time No Known Allergies (No Known Allergy Verified 04/04/25 11:08 Allergies*) Exam Airway Mallampati Class: Patient Non-Cooperative TM Dist: >3cm Neck ROM: Full Loose/Missing/Broken Teeth: No Heart: ok Lungs: ok Assessment and Plan Assessment Anesthesia Assessment: Anesthesia Plan Discussed and Chart Reviewed Final Anesthetic Review NPO: Yes ASA Class: IV Final Preanesthetic Review: No Changes in Pt Med Stat, Meds/Allgs Chart Reviewed, Consent Obtained/Reviewed and Anes Risks/Benef Reviewed Patient Risk: High Procedure Risk: Low Anesthetic Plan Anesthetic Plan: MAC: and Agree w/ Assess. and Plan Disposition: Standard PACU
[2025-04-04] MEDS: Lactated Ringers 1,000 ML 100 ML IVCONT (10:48)
[2025-04-04 11:02] LABS: Glucose, Whole Blood 180 mg/dL (60-115)
[2025-04-04 11:07] VITALS: BMI 24.5
[2025-04-04 11:08] VITALS: BP 122/67; PULSE 73; RESP 18; TEMP 36.7; O2SAT 98
--- NOTE | 2025-04-04 11:18 | P.HPSUR_ITS ---
Pre-Procedural Eval Section A - 24 Hr Update-Section A only Date of Service: 04/04/25 The patient is an INPATIENT: No The patient has been examined within 24 hours of the surgical procedure. The History & Physical has been completed within 30 days and I have reviewed it.: No Section B - Complete if H&P > 30 days Chief Complaint: Surveillance for colon polyps Relevant Family History (Specify if Yes): Yes Relevant Social History: Tobacco Use (Former smoker) Present Medications: see Short Stay Collaborative assessment Medical History: Significant History (Cerebral amyloid angiopathy Obstructive sleep apnea Overweight (BMI 25.0-29.9) Alzheimer's dementia Depression Vitamin D deficiency Memory impairment Renal cell carcinoma of right kidney Essential h ypertension Type 2 diabetes mellitus with unspecified complications H/O malignant neoplasm of small in) History of Previous Operations: Relevant previous surgery/procedure and date(s) (Hx of colonoscopy Hx of kidney removal History of esophagogastroduodenoscopy (EGD) H/O sinus surgery) Allergies: Allergies Allergy/AdvReac Type Severity Reaction Status Date / Time No Known Allergies (No Known Allergy Verified 04/04/25 11:08 Allergies*) Review of Systems Sugical H&P ROS: Negative: Constitution, Cardiovascular, Respiratory and Gastrointestinal Exam Surgical H&P Exam: Normal: Heart, Normal: Lungs, Normal: Extremities and Normal: Abdomen Plan Diagnosis/Plan: Unchanged I have reviewed the history and physical and performed a pertinent physical examination on my patient. No changes have occurred unless specified. Time Spent With Patient Time: Total time managing care of this patient today ____ minutes.
--- NOTE | 2025-04-04 13:47 | HO.OPN-COLON ---
Colonoscopy Operative Note Operative Note Date of Service: 04/04/25 Narrative: COLONOSCOPY TILL CECUM WITH SNARE POLYPECTOMY AND HEMOCLIP PLACEMENT Pre-op diagnosis: Surveillance for colon polyps. Post-op diagnosis:? Colon polyps, Diverticulosis, hemorrhoids Endoscopist:? Zhou Mitchell MD Anesthesia:?MAC Consent: Indications for the procedure and potential complications of bleeding, perforation, reaction to medications and missed diagnosis were discussed with the patient's and HCP and informed consent was obtained. Instrument: Olympus CF H 190 L variable stiffness adult colonoscope Monitoring: Vital signs and clinical assessment, intermittent blood pressure monitoring, continuous EKG monitoring, Pulse oximetry and Carbon Dioxide monitoring were done throughout the procedure. Please see anesthesia flowsheet. Colon withdrawl time was 35 minutes. Procedure: The patient was placed in the left lateral decubitis position and pre-procedure medications were administered. After a digital rectal examination of the ano-rectum, the video colonoscope was inserted into the rectum and advanced through the colon to the cecum. The colonoscope was slowly withdrawn in a retrograde panoramic fashion and the colon mucosa was carefully examined including a retroflexed view of the rectum. Findings and interventions are described below. Procedure Difficulty: Colon was long and tortuous and there was some loop formation. LLQ pressure was applied to intubate the ascending colon Findings: Terminal Ileum: Not evaluated Cecum: A 7-8 mm sessile polyp - removed with a cold snare. Some bleeding noted at the polypectomy site treated with placement of a hemoclip with cessation. Ascending Colon: Normal Transverse Colon: Normal Descending Colon: Moderate diverticulosis Sigmoid Colon: A 4-5 mm sessile polyp - removed with a cold snare. Severe diverticulosis with luminal narrowing Rectum: Normal Ano-rectum: Small internal hemorrhoids Colon preparation: Good after copious irrigation. [place] Bowel Preparation Scale Right colon; 2 Transverse colon: 2 Left colon; 2 (0 = Unprepared colon segment with mucosa not seen due to solid stool that cannot be cleared. 1 = Portion of mucosa of the colon segment seen, but other areas of the colon segment not well seen due to staining, residual stool and/or opaque liquid. 2 = Minor amount of residual staining, small fragments of stool and/or opaque liquid, but mucosa of colon segment seen well. 3 = Entire mucosa of colon segment seen well with no residual staining, small fragments of stool or opaque liquid) Impression and Post Procedure Diagnosis: Colonoscopy Findings: Two small polyps were removed Moderate to severe diverticulosis seen in the left colon Small hemorrhoids on retroflexed exam. Plan: I will send a letter with biopsy results. Repeat Colonoscopy is not recommended given presence of dementia. Above findings were reviewed with the patient and relevant handouts were given and the discharge area.
[2025-04-04 13:52] VITALS: BP 118/72; PULSE 82; RESP 16; TEMP 36.1; O2SAT 99
[2025-04-04 14:07] VITALS: BP 113/63; PULSE 62; RESP 16; TEMP 36.2; O2SAT 98
== END 2025-04-04 14:26 | disposition home or self-care (01) ==
PROVIDERS: PCP Internal Medicine; Visit Provider Internal Medicine Gastroenterology
PROC: 0DJD8ZZ Inspection of Lower Intestinal Tract, Via Natural or Artificial Opening Endoscopic (ICD-10-PCS; CPT 45378; principal; 2025-04-04 12:00)
DX: Z12.11 Encounter for screening for malignant neoplasm of colon (principal); Z86.0101 Personal history of adenomatous and serrated colon polyps; D12.0 Benign neoplasm of cecum; K63.5 Polyp of colon; K57.30 Diverticulosis of large intestine without perforation or abscess without bleeding; K64.8 Other hemorrhoids; K29.70 Gastritis, unspecified, without bleeding; R13.10 Dysphagia, unspecified; C64.1 Malignant neoplasm of right kidney, except renal pelvis; Z90.5 Acquired absence of kidney; Z85.060 Personal history of malignant carcinoid tumor of small intestine; I10 Essential (primary) hypertension; D64.9 Anemia, unspecified; E11.9 Type 2 diabetes mellitus without complications; E55.9 Vitamin D deficiency, unspecified; G30.9 Alzheimer's disease, unspecified; F02.80 Dementia in other diseases classified elsewhere, unspecified severity, without behavioral disturbance, psychotic disturbance, mood disturbance, and anxiety; R26.9 Unspecified abnormalities of gait and mobility; G47.33 Obstructive sleep apnea (adult) (pediatric); Z99.3 Dependence on wheelchair; Z79.84 Long term (current) use of oral hypoglycemic drugs; Z79.899 Other long term (current) drug therapy; Z79.51 Long term (current) use of inhaled steroids; Z98.890 Other specified postprocedural states; Z87.891 Personal history of nicotine dependence
CPT/HCPCS: 45385; 82947; 88302; 88305; J2003; J2704

== ENCOUNTER → 2025-04-04 10:05 | Outpatient (BNV) | payer OTHER, SELFPAY | PROVIDERS: PCP Internal Medicine; Visit Provider Internal Medicine Gastroenterology | DX: Z12.11 Encounter for screening for malignant neoplasm of colon (principal); D12.0 Benign neoplasm of cecum; D12.5 Benign neoplasm of sigmoid colon; K57.90 Diverticulosis of intestine, part unspecified, without perforation or abscess without bleeding; K64.8 Other hemorrhoids | CPT/HCPCS: 45385 ==

== ENCOUNTER 2025-05-07 12:19 | Emergency (ER) | payer OTHER, SELFPAY ==
--- OUTSIDE RECORDS SUMMARY | 2024-06-14 09:00 | XMS_ITS ---
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 Name Role Phone Chung GONZALES, Yuri Primary Care Provider UnaRodolfo Jenkins Unavailable [phone] Encounters Encounter Location Date Provider Diagnosis [address] [address] 06/14/2024 Rodolfo Kaplan Plan Of Treatment No Information Progress Notes * Elijah BEARDENDOB:1955 ( 70 yo M)Acc No.[id number]:06/14/2024 Progress Note Patient: Elijah GARAY Provider: Luz Kaplan DPM :1955 A ge:69 Y S ex:Male Date:06/14/2024 Address:[address] [id number] Pcp:Yuri Wilkes MD Subjective: * Chief Complaints: [...] Date: 08/15/2023 Generated for Everti ng/Faxing/eTransmitting on: 07/07/2024 01:14 PM EDT
--- OUTSIDE RECORDS SUMMARY | 2024-12-23 10:45 | XMS_ITS ---
Author Organization [facility] Address [address] [place] [address] KEND[place] Thakur [address] Care Team Providers Care Fast Food Sales Assistant Name Role Phone Chung GONZALES, Yuri Primary Care Provider UnaRodolfo Jenkins Unavailable [phone] Encounters Encounter Location Date Provider Diagnosis [address] [address] 12/23/2024 Rodolfo Kaplan Plan Of Treatment No Information Progress Notes * Elijah BEARDENDOB:1955 ( 70 yo M)Acc No.[id number]:12/23/2024 Progress Note Patient: Elijah GARAY Provider: Luz Kaplan DPM :1955 A ge:69 Y S ex:Male Date:12/23/2024 Address:[address], [id number] Pcp:Yuri Wilkes MD Subjective: * Chief Complaints: [...] 0 12/23/2024 Generated for Printi ng/Faxing/eTransmitting on: 07/07/2024 01:14 PM EDT
--- OUTSIDE RECORDS SUMMARY | 2025-03-24 10:00 | XMS_ITS ---
Author Organization [facility] Address [address] [place] [address] KENDY Thakur [address] Care Team Providers Care Machine Repairer Name Role Phone Chung GONZALES, Yuri Primary Care Provider UnaRodolfo Jenkins Unavailable [phone] Encounters Encounter Location Date Provider Diagnosis [address] [address] 03/24/2025 Rodolfo Kaplan Plan Of Treatment No Information Progress Notes * Domenic BEARDENjostinDOB:1955 ( 70 yo M)Acc No.[id number]:03/24/2025 Progress Note Patient: Elijah GARAY Provider: Luz Kaplan DPM :1955 A ge:70 Y S ex:Male Date:03/24/2025 Address:[address], [id number] Pcp:Yuri Wilkes MD Subjective: * Chief Complaints: [...] 0 03/24/2025 Generated for Printi ng/Faxing/eTransmitting on: 07/07/2024 01:14 PM EDT
--- NOTE | ~2025-05-07 | XR_ITS ---
CLINICAL HISTORY: cough Chest Radiographs, 2 views Comparison: CR/VA/SR - XR CHEST 2 VIEWS - 03/18/25 09:22 EDT CR/SR - XR CHEST 2 VIEWS - 10/28/24 13:[address]/SR - CT CHEST W IV CON - 07/21/24 09:50 EST CR - XR CHEST 2V - 07/05/24 17:02 EST Findings: No cardiomegaly. Normal mediastinal contours. No pneumothorax. No opacity. No pleural effusion. No acute findings in the upper abdomen. No acute fracture. Impression: No acute findings. This document has been electronically signed by: Yenny Brito MD on 05/07/2025 13:39:08
--- NOTE | 2025-05-07 12:25 | ED.URI ---
HPI - URI/Sore Throat General Chief Complaint: Upper Respiratory Symptoms Stated Complaint: Coughing for 2 week Time Seen by Provider: 05/07/25 12:59 Source: patient and family Mode of arrival: ambulatory Limitations: altered mental status History of Present Illness ED Provider: Elvira Cantrell APRN HPI Narrative: 70-year-old male with a history of dementia here with chronic cough for more than 3 months. tells me that she has tried Robitussin, Mucinex and use this his home albuterol nebulizer with continued cough. No fevers, chills or shortness of breath. Patient reports that she has been seen by the community living instructor and they can not find a cause for the cough. They have now been going to Gastroenterology have a negative workup there. She reports cough is worsened at night time. Related Data Previous Rx's ?Medication ?Instructions ?Recorded lancets (OneTouch UltraSoft #100 ea 09/24/22 Lancets) lancets 33 gauge #100 ea 12/20/22 DIABETIC SHOES (1 pair) #2 ea 01/28/23 SHOE INSERTS (3 pairs) #6 ea 02/11/23 blood-glucose meter (OneTouch #1 ea 09/24/23 Ultra2 Meter) blood sugar diagnostic (OneTouch #100 ea 10/07/23 Ultra Test strips) Commode #1 ea 11/11/23 nut.tx.gluc.intol,lac-free,soy See Rx Instructions .Route 02/02/24 (Glucerna oral liquid) .COMPLEX weight loss 30 days #90 multiple units walker (Ultra-Light Rollator misc) #1 ea 02/17/24 blood-glucose sensor (FreeStyle #1 ea 03/04/24 Jermaine 3 Sensor device) blood-glucose,watch repairer apprentice,cont #1 ea 03/04/24 (FreeStyle Jermaine 3 [place]) incontinent wipes / 10 packs #180 ea 03/12/24 Bed pads #5 ea 03/16/24 disposable bed pads /10 packs #60 ea 03/16/24 albuterol sulfate 2.5 mg/3 mL 2.5 mg (3 mL) inhalation QID PRN 03/26/24 (0.083 %) solution for nebulization shortness of breath or wheezing 30 days #180 mL Non slip bath mat #1 ea 04/27/24 Shower handle #1 ea 04/27/24 wheelchair back cushion #1 ea 07/09/24 wheelchair seat cushion #1 ea 07/09/24 Transport chair light weight #1 ea 07/13/24 chair, wheel (Wheel chair) #1 ea 07/14/24 wedge pillow #1 ea 08/03/24 Foam Mattress #1 08/19/24 guaifenesin 200 mg/5 mL oral liquid 200 mg (5 mL) PO Q4H PRN cough 09/01/24 #118 mL One Touch Ultra 2 glucose monitor. #1 ea 10/27/24 One touch ultra 2 lancets #1 10/27/24 One touch ultra 2 strips #1 10/27/24 losartan 100 mg tablet 100 mg PO DAILY 90 days #90 tabs 10/27/24 lancets 30 gauge (OneTouch #100 ea 12/02/24 UltraSoft 2 Lancet) ipratropium 0.5 mg-albuterol 3 mg 3 ml inhalation Q6H PRN wheezing 12/22/24 (2.5 mg base)/3 mL nebulization #180 mL soln famotidine 20 mg tablet 20 mg PO BID 90 days #180 tabs 12/30/24 budesonide 0.25 mg/2 mL suspension 0.25 mg (2 mL) inhalation DAILY 01/03/25 for nebulization #180 mL benzonatate 100 mg capsule 100 mg PO BID-TID PRN cough 30 02/04/25 days #90 caps cholecalciferol (vitamin D3) 250 250 mcg PO 2XW 90 days #26 caps 03/25/25 mcg (10,000 unit) capsule fluticasone propionate 50 1 spray intranasal BID #48 mL 03/25/25 mcg/actuation nasal spray,suspension hydrochlorothiazide 12.5 mg capsule 12.5 mg PO DAILY 90 days #90 caps 03/25/25 melatonin 3 mg tablet 9 mg (3 x 3 mg) PO BEDTIME sleep 03/25/25 30 days #90 tabs metformin 1,000 mg tablet 1,000 mg PO DAILY #90 tabs 03/25/25 memantine 28 mg capsule 28 mg PO DAILY 90 days #90 ea 03/31/25 sprinkle,extended release 24hr amoxicillin 875 mg-potassium 1 tab PO Q12H #20 tabs 04/05/25 clavulanate 125 mg tablet ADULT PULL UPS (large) #100 ea 04/13/25 Over the bed tray table #1 ea 04/25/25 cetirizine 10 mg capsule (Zyrtec) 10 mg PO DAILY PRN allergy 04/27/25 symptoms #30 caps carbidopa 25 mg-levodopa 100 mg 0.5 tab PO QID 30 days #60 tabs 04/29/25 tablet Allergies Allergy/AdvReac Type Severity Reaction Status Date / Time No Known Allergies (No Known Allergy Verified 05/07/25 12:29 Allergies*) Review of Systems Review of Systems: Yes Unobtainable due to mental status Neurologic: Reports confusion Psychiatric: Psychiatric: Reports confusion PMFSH Past Medical History Attestation statement: The following information was validated with the patient. Source: old records reviewed and nursing notes reviewed Medical History Cerebral amyloid angiopathy Obstructive sleep apnea Overweight (BMI 25.0-29.9) Alzheimer's dementia Depression Vitamin D deficiency Memory impairment Renal cell carcinoma of right kidney Essential hypertension Type 2 diabetes mellitus with unspecified complications H/O malignant neoplasm of small intestine Diverticula of colon Kidney mass Anemia Diabetes Hypertension Surgical History Hx of colonoscopy Hx of kidney removal History of esophagogastroduodenoscopy (EGD) H/O sinus surgery Family History Family History Father No problems noted. Mother Heart disease Pancreas cancer Maternal Grandmother Stomach cancer Social History Social History Household Members: Spouse Housing: Apartment Are you a primary acute care nurse practitioner to a significant other at home: No Do you presently have visiting nurse or other home services: Yes Alcohol intake: former Comment: given as premed Patient Tobacco Use Status: Former Tobacco user Tobacco use type: Cigar e-Cigarette/Vaping Use: Never Used Second Hand Smoke Exposure: No Advance Directives: Yes Advance Directives on File: Yes Advance Directives Date on File: 09/12/20 Do you have a plan to hurt others: No Plan service: No Current occupational status: retired Cognitive needs: No Hearing needs: No Vision needs: Yes (glasses) Physical Exam Vital Signs: Vital Signs: Last Vital Signs Temp 97.8 F 05/07/25 12:26 Pulse 64 05/07/25 12:26 Resp 16 05/07/25 12:26 BP 128/70 05/07/25 12:26 Pulse Ox 99 05/07/25 12:26 O2 Del Method Room Air 05/07/25 12:26 BMI result Body Mass Index 24.8 Const: General: cooperative, healthy appearing, comfortable, no acute distress and confusion Orientation/consciousness: confusion Limitations: altered mental status HEENT: Head: Yes normal to inspection Ears: hearing grossly normal bilaterally General nose exam: Normal external nose present Face and sinus: Yes normal facial exam Mouth: Normal oral and palatal mucosa present Throat: Yes posterior oropharynx normal Eyes: General: appearance normal, both eyes and all related structures Pupils: Equal, round and reactive pupils present Neck: Neck: Yes normal visual inspection Chest: Chest palpation & inspection: normal inspection of the chest Resp: Effort & Inspection: normal respiratory effort Auscultation: clear to auscultation bilaterally Cardio: Rate: regular rate Rhythm: regular rhythm Peripheral pulses: Peripheral pulses 2+ throughout GI: Inspection: Yes normal to inspection Palpation (GI): Soft to palpation and nontender Auscultation: normal bowel sounds Back/Spine/Pelvis: Thoracic/Lumbar Spine: thoracic and lumbar spine normal to inspection Skin: General skin exam: no rashes or lesions noted Neuro: General: moves all extremities, no focal motor deficits, normal sensation to monofilament and confusion Cranial nerves: Yes Equal, round and reactive pupils present Motor exam (neuro): 5/5 motor strength present throughout Extrem: General: Yes normal to inspection, Yes no calf tenderness and No pedal edema Course Course Course Narrative: This is a Rapid Medical Exam performed in triage by Tata Sneed PA-C. Full HPI, ROS and PE to be performed by primary ED provider. 70 yo M w/pmhx dementia - nonverbal, depression, anemia, DM, HTN, JACI, Colon CA presenting to the ED c/o dry cough x2 weeks, worse at night. denies fever, chills PE: lungs CTA Plan: CXR, viral testing Reevaluation(s) Reevaluation #1: Viral testing negative. Chest x-ray shows no acute finding. Lungs are clear. Vitals are stable. Explained findings to the white. Recommend she follow up outpatient with providers. Reviewed worrisome signs and symptoms of when to return to the emergency room. Comfortable plan for discharge home Medical Decision Making Medical Decision Making [facility] Narrative: 70-year-old male with a history of dementia here with chronic cough for more than 3 months. tells me that she has tried Robitussin, Mucinex and use this his home albuterol nebulizer with continued cough. No fevers, chills or shortness of breath. Patient reports that she has been seen by the community living instructor and they can not find a cause for the cough. They have now been going to Gastroenterology have a negative workup there. She reports cough is worsened at night time. Nontoxic appearing, afebrile, lungs clear Will obtain chest x-ray and viral testing Differential Diagnosis Differential Diagnoses: The differential diagnosis associated with the presentation includes Influenza, pneumonia, viral syndrome, chronic bronchitis Admission/Observation Consideration of admission/observation: Escalation of care including admission/observation considered Lab Data [facility] Lab Attestation statement: I reviewed the patient's lab results. Labs: Lab Results 05/07/25 Range/Units 12:33 COVID-19 (TIARA) Negative (Negative) COVID-19 Clin Com See Note Influenza Type A (NIYAH) Negative (Negative) Influenza Type B (NIYAH) Negative (Negative) Influenza A & B Note See Note Independent Interpretation I performed an independent interpretation of an: Plain X-Ray Interpretation: I independently viewed the x-ray and agree with the radiology report Radiology Impression Discussion of test interpretation with radiology: I have reviewed the radiologist's reading. Radiologist Impression: [address] [address] XRay Report Signed Patient: Elijah Bearden MR#: [id number] : 1955 Acct:[id number] Age/Sex: 70 / M ADM Date: 05/07/25 Loc: .ED Attending Dr: Ordering Physician: Tata Sneed Date of Service: 05/07/25 Procedure(s): XR chest 2V Accession Number(s): [id number] cc: Yuri Wilkes MD; Tata Sneed~ Reason for Exam: cough CLINICAL HISTORY: cough Chest Radiographs, 2 views Comparison: CR/IN/SR - XR CHEST 2 VIEWS - 03/18/25 09:22 EDT CR/SR - XR CHEST 2 VIEWS - 10/28/24 13:[address]/SR - CT CHEST W IV CON - 07/21/24 09:50 EST CR - XR CHEST 2V - 07/05/24 17:02 EST Findings: No cardiomegaly. Normal mediastinal contours. No pneumothorax. No opacity. No pleural effusion. No acute findings in the upper abdomen. No acute fracture. Impression: No acute findings. This document has been electronically signed by: Yenny Brito MD on 05/07/2025 13:39:08 Prescription Management I considered prescription management with: Antibiotic Discharge Plan Discharge Clinical Impression: Chronic cough Patient Disposition: Home, Self-Care Instructions: Chronic Cough (ED) Additional Instructions: Continue his home medications Follow-up with his outpatient provider X-ray shows no pneumonia Flu and COVID testing are negative Prescriptions: No Action (DME) lancets [OneTouch UltraSoft Lancets] Misc See Rx Instructions .ROUTE .MEDSUPPLY Qty: 100 5RF Rx Instructions: As directed once a day (DME) lancets 33 gauge misc See Rx Instructions .Route Qty: 100 3RF Rx Instructions: As directed (DME) DIABETIC SHOES (1 pair) See Rx Instructions .Route .MEDSUPPLY Qty: 2 1RF Rx Instructions: As directed (DME) SHOE INSERTS (3 pairs) See Rx Instructions .Route .MEDSUPPLY Qty: 6 0RF Rx Instructions: As directed (DME) blood-glucose meter [OneTouch Ultra2 Meter] Misc See Rx Instructions .Route Qty: 1 0RF Rx Instructions: As directed (DME) OneTouch Ultra Test Strip See Rx Instructions .ROUTE .MEDSUPPLY Qty: 100 5RF Rx Instructions: As directed once a day (DME) Commode See Rx Instructions .Route .MEDSUPPLY Qty: 1 0RF Rx Instructions: As directed Glucerna Liquid See Rx Instructions .ROUTE .COMPLEX 30 Days Qty: 90 12RF Rx Instructions: 1 can orally TID with meals; (DME) Ultra-Light Rollator Misc See Rx Instructions .Route Qty: 1 0RF Rx Instructions: As directed (DME) FreeStyle Jermaine 3 [place] Misc See Rx Instructions .ROUTE .MEDSUPPLY Qty: 1 1RF Rx Instructions: As directed (DME) FreeStyle Jermaine 3 Sensor Device See Rx Instructions .ROUTE .MEDSUPPLY Qty: 1 1RF Rx Instructions: As directed (DME) incontinent wipes / 10 packs See Rx Instructions .Route .MEDSUPPLY Qty: 180 2RF Rx Instructions: As directed (DME) Bed pads See Rx Instructions .Route .MEDSUPPLY Qty: 5 1RF Rx Instructions: As directed (DME) disposable bed pads /10 packs See Rx Instructions .Route .MEDSUPPLY Qty: 60 2RF Rx Instructions: As directed (DME) Non slip bath mat See Rx Instructions .Route .MEDSUPPLY Qty: 1 0RF Rx Instructions: As directed (DME) Shower handle See Rx Instructions .Route .MEDSUPPLY Qty: 1 0RF Rx Instructions: As directed (DME) wheelchair seat cushion See Rx Instructions .Route .MEDSUPPLY Qty: 1 0RF Rx Instructions: As directed (DME) wheelchair back cushion See Rx Instructions .Route .MEDSUPPLY Qty: 1 0RF Rx Instructions: As directed (DME) Transport chair light weight See Rx Instructions .Route .MEDSUPPLY Qty: 1 0RF Rx Instructions: As directed (DME) Wheel chair Kit See Rx Instructions .Route Qty: 1 1RF Rx Instructions: Transport wheelchair As directed. To reduce risk for falls secondary to gait d/o and Alzheimer's dementia. (DME) wedge pillow See Rx Instructions .Route .MEDSUPPLY Qty: 1 0RF Rx Instructions: As directed (DME) Foam Mattress [place] See Rx Instructions .Route .MEDSUPPLY Qty: 1 0RF Rx Instructions: As directed guaifenesin 200 mg/5 mL liquid 200 mg PO Q4H PRN (Reason: cough) Qty: 118 0RF losartan 100 mg tablet 100 mg PO DAILY 90 Days Qty: 90 1RF (DME) One Touch Ultra 2 glucose monitor. See Rx Instructions .Route .MEDSUPPLY Qty: 1 0RF Rx Instructions: As directed (DME) One touch ultra 2 lancets See Rx Instructions .Route .MEDSUPPLY Qty: 1 0RF Rx Instructions: As directed (DME) One touch ultra 2 strips See Rx Instructions .Route .MEDSUPPLY Qty: 1 0RF Rx Instructions: As directed budesonide 0.25 mg/2 mL suspension for nebulization 0.25 mg inhalation DAILY Qty: 180 3RF benzonatate 100 mg capsule 100 mg PO BID-TID PRN (Reason: cough) 30 Days Qty: 90 1RF fluticasone propionate 50 mcg/actuation spray,suspension 1 spray intranasal BID Qty: 48 0RF metformin 1,000 mg tablet 1,000 mg PO DAILY Qty: 90 1RF hydrochlorothiazide 12.5 mg capsule 12.5 mg PO DAILY 90 Days Qty: 90 1RF cholecalciferol (vitamin D3) 250 mcg (10,000 unit) capsule 250 mcg PO 2XW 90 Days Qty: 26 2RF melatonin 3 mg tablet 9 mg PO BEDTIME 30 Days Qty: 90 6RF memantine 28 mg capsule,sprinkle,ER 24hr 28 mg PO DAILY 90 Days Qty: 90 1RF amoxicillin-pot clavulanate 875-125 mg tablet 1 tab PO Q12H Qty: 20 0RF (DME) ADULT PULL UPS (large) large See Rx Instructions .Route .MEDSUPPLY Qty: 100 12RF Rx Instructions: As directed (DME) Over the bed tray table See Rx Instructions .Route .MEDSUPPLY Qty: 1 0RF Rx Instructions: As directed Zyrtec 10 mg capsule 10 mg PO DAILY PRN (Reason: allergy symptoms) Qty: 30 3RF carbidopa-levodopa 25-100 mg tablet 0.5 tab PO QID 30 Days Qty: 60 3RF Rx Instructions: take w/ a cracker 30 minutes before meals and at bedtime albuterol sulfate 2.5 mg /3 mL (0.083 %) solution for nebulization 2.5 mg inhalation QID PRN (Reason: shortness of breath or wheezing) 30 Days Qty: 180 3RF famotidine 20 mg tablet 20 mg PO BID 90 Days Qty: 180 1RF (DME) lancets [OneTouch UltraSoft 2 Lancet] 30 gauge misc See Rx Instructions .ROUTE .MEDSUPPLY Qty: 100 5RF Rx Instructions: As directed ipratropium-albuterol 0.5 mg-3 mg(2.5 mg base)/3 mL solution for nebulization 3 ml inhalation Q6H PRN (Reason: wheezing) Qty: 180 6RF Print Language: Pashto
[2025-05-07 12:26] VITALS: BP 128/70; PULSE 64; RESP 16; TEMP 36.6; O2SAT 99; BMI 24.8
[2025-05-07 12:55] LABS: COVID-19 Test Negative (Negative); IDNOW Serial# 55D5AD1C; IDNOW Serial# 58CA691E; Influenza B2 Negative (Negative)
--- OUTSIDE RECORDS SUMMARY | 2025-05-07 13:14 | XMS_ITS | Data Portability ---
Author Organization [facility] [employer] Address [address] [place] [address] Care Team Providers Care Newspaper Clipper Name Role Phone HIM CCA OTHER ANMOL MARQUEZ Primary Care Provider [phone] Assessment Encounter Date Assessment Date Assessment LastModified by Organization Details LastModified Time 02/19/2024 02/19/2024 I have reviewed and agree with the Assessment and Plan as documented by the Stock Ranch Supervisor. I provided real-time medical direction via [...] Assessment and Plan as documented by the Stock Ranch Supervisor. The patient / given the opportunity to ask questions. Advised if develops CP/severe SOB/turning blue/AMS/ syncope/ hi fever to call 911- she verbalized understanding of instructions to the medic lu Not available 06/22/2024 13:10:23 07/12/2024 07/12/2024 I have reviewed and agree with the assessment and plan as documented by the pocket secretary assembler. I provided real time medical direction for this encounter and was immediately available to provide additional phone based assistance as needed. History as noted by pocket secretary assembler. Pt with history of hypertension, COPD/asthma, type 2 diabetes mellitus, dementia (Alzheimer's disease), osteoarthritis, and colon CA. 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 [facility] and was diagnosed with a viral URI. He also reports being seen by his manager council last week and had labs and a [...] f/u with his primary care team or manager council if his symptoms continue to persist despite [...] respiratory specimen 2023 024 DOMENICO Romano - [facility], [address] [place] [address], [id number] 19:02:16 rapid flu (A+B) 2023 024 DOMENICO [facility] - [facility], [address] [place] [address], [id number] 4 19:02:38 rapid SARS CoV 2 Ag, QL IA, respiratory specimen 2023 024 [email or web address] 0 Main - [facility], [address] [place] [address], [id number] 4 13:10:41 rapid flu (A+B) 2023 024 [email or web address] 0 [facility] - [facility], [address] [place] [address], [id number] 4 13:10:41 BMP, serum or plasma 2023 024 [email or web address] 0 [facility] - [facility], [address] [place] [address], [id number] 4 13:10:41 rapid SARS CoV 2 Ag, QL IA, respiratory specimen 2023 024 [facility] [address] [place] [address], [id number] 4 12:14:29 rapid flu (A+B) 2023 024 [facility], [address] [place] [address], [id number] 4 12:14:49 Referral None recorded. Procedures None recorded. Surgeries None recorded. Imaging None recorded. Medication Orders doxycycline monohydrate 100 mg tablet 2024 025 [id number], [address] [place], [address], 5 09:20:59 benzonatate 200 mg capsule 2024 025 [id number], [address] [place], [address], 5 09:20:58 fluticasone propionate 50 mcg/actuati on nasal spray,suspe nsion 2023 024 [id number], [address] [place], [address], 10:22:30 Patient TargetsNo targets recorded. Patient InstructionsNo instructions recorded. Reason for Referral None Reported. Results Created Date Observation Date Name Description Value Unit Range Abnormal Flag Note LastModifiedBy Organization Detail LastModifiedTime 06/22/20 24 06/22/2024 rapid flu (A+B) Flu negati ve Not Available [facility] [address] [place] [address], [id number] 06/22/2024 11:17:48 06/22/20 24 06/22/2024 rapid SARS CoV 2 Ag, QL IA, respi rator y speci men rapid SARS CoV 2 Ag, QL IA, respiratory specimen negati ve Not Available [facility] [address] [place] [address], [id number] 06/22/2024 11:17:47 06/22/20 24 06/22/2024 BMP, serum or plasm a Ca 1.33 Not Available [facility] [address] [place] [address], [id number] 06/22/2024 11:18:25 Result Notes None recorded. Medical [...] [degF] 182.88 cm 98 % 98 % 52957.6 g 122/82 mm[Hg] Not Available [facility] - production 10:19:48 Date Recorded Respiratory rate Body height Oxygen saturation Oxygen saturation in Arterial blood by Pulse oximetry Body weight Heart rate Body temperature Systolic And Diastolic Provider Name and Address Organization Details Last Updated DateTime 14 /min 180.34 cm 98 % 98 % 89565.2 56 g 60 /min 98.7 [degF] 144/88 mm[Hg] Not Available [facility] - production 10:50:18 Date Recorded Oxygen saturation Oxygen saturation in Arterial blood by Pulse oximetry Body temperature Heart rate Respiratory rate Systolic And Diastolic Provider Name and Address Organization Details Last Updated DateTime 98 % 98 % 98.2 [degF] 76 /min 18 /min 144/82 mm[Hg] Not Available [facility] - production 12:56:22 Social History None recorded. Functional Status None recorded. Mental Status None recorded. Family History Nothing Reported. Medical History No medical history recorded. Past Encounters Encounter ID Performer Location Encounter Start Date Encounter Closed Date Diagnosis/Indication Diagnosis SNOMED-CT Code Diagnosis ICD10 Code Diagnosis IMO Codes Diagnosis Note [id number] Reyes Hanna MD [facility] [address] [place] [phone] 02/19/2024 10:19:45 02/20/2024 12:55:18 Cough 80715767 R05.9 [id number] Sylvia Valentin MD [facility] [address] [place] [address] 0 06/22/2024 10:50:15 06/22/2024 13:52:43 Cough 74588193 R05.9 Advised to continue regular medicines and follow-up with PCP/BMP ordered as requested- results non-concer varun. Calcium is slightly elevated patient is not on any calcium supplement ation per his [id number] REJI RAMOS MD [facility] [address] [place] [address] 07/03/2024 12:56:17 07/06/2024 20:29:08 Viral upper respiratory tract infection 318863996 J06.9 Evaluation in the field was performed by my pocket secretary assembler colleague, as noted above, I provided real-time [...] to tolerate PO or any other concerns. [id number] Skip Tovar MD [facility] [address] [place] [address] 0 07/12/2024 09:13:40 07/12/2024 14:48:07 Acute bronchitis 42742452 J20.9 Health Concerns Section Related Observation LastModified by Organization Detai ls LastModified Time None Recorded Concern Status LastModified by Organization Details LastModified Time None Recorded Advance Directives Directive None Recorded Payers Insurance Date Sequence Insurance Name Policy Number Policy Arroyo Covered Member ID Arroyo Member ID Guarantor Name 07/12/2024 1 [facility]INT [facility] - DOS ON OR AFTER 2022 - DUAL ELIGIBLE - NURSING HOME OPTIONS AND ONE CARE (MEDICARE REPLACEMENT/ADV ANTAGE - HMO) Elijah Bearden [id number] Elijah Bearden Notes Date Note Type Note Provider Name and Address Organization Details Recorded Time 02/19/2024 text/html CRC Nurse Triage Notes (Jennifer Cota): Reason For Request: coughing during nighttime Chief Complaints: Cough PMH: Diabetes, Severe Dementia, Hypertension Allergies: No Known Comments: Research Methods Instructor verified the member's name//address and phone number. [...] s/s and seek emergency treatment if needed Stock Ranch Supervisor Organization Information for Adam Duval [employer] Legal Name: [facility] Address: [address] [place] [address], [place] [address], Diesel Machinist: César Dominguez MD CLIA No.: [id number] Stock Ranch Supervisor POC Test Results from Adam Duval Rapid COVID antigen (10:16:04) COVID: - Rapid influenza antigen (10:16:05) Flu: - .................... .................... .................... .................... .................... .................... .................... . Stock Ranch Supervisor Note From Adam Duval: Patient seated [...] for Covid and flu via rapid POC. [facility] orders Flonase to patient local pharmacy. Care and plan discussed with caregiver, grateful for service and expect to call back in the future. Red flags, patient education discussed. Supportive care, including tea with honey, and use of the Flonase device discussed. .................... .................... .................... .................... .................... .................... .................... . Disposition: Fulfilled Reyes Hanna MD [address] [facility],[address], [place], [address], BLOSSOM RIOS 02/19/2024 11:14:41 06/22/2024 text/html ROS as noted in the HPI HPI: See if u could draw blood [...] was negative. She would like him evaluated. Stock Ranch Supervisor Organization Information for Ying Rayabrittany Legal Name: [employer]. Address: [address] [place] [id number], Diesel Machinist: Mason Willis MD CLIA No.: [id number] Stock Ranch Supervisor POC Test Results from Ying Raya iSTAT [...] antigen (:18:55) COVID: - Rapid influenza antigen (:18:58) Flu: - .................... .................... .................... .................... .................... .................... .................... . Stock Ranch Supervisor Note From Ying Raya: [facility] makes pt contact after being admitted to the home by pt's . He is found seated on the sofa w/ his arm resting on the arm rest and his head resting on that fist. He is conscious and alert and greets [facility]. He doesn't speak much at baseline, [...] She consents to evaluation today for the pt.[facility] obtains vital signs and pt is physically assessed. Nothing remarkable is noted upon physical exam. A 21ga butterfly is used to attempt IV cannulation for blood draw in R forearm and is unsuccessful. A second 21ga butterfly is used in the R forearm for blood draw and is successful. Chem 8+ is performed and results are uploaded. [facility] contacts [facility] to discuss the above findings. [facility] requests a rapid COVID and flu in preparation for the CT. Pt's iCal is noted to be high. Rapid COVID and flu are performed and found to be negative. thanks [facility] for coming.[facility] is clear. Report completed by MICHELLE Raya [id number]. [facility] Lab Orders: rapid SARS CoV 2 Ag, QL IA, respiratory specimen: Performed .................... .................... .................... .................... .................... .................... .................... . [facility] Consulted: Sylvia Valentin .................... .................... .................... .................... .................... .................... .................... . Disposition: Nish Valentin MD [address] [place] [address],[address], [place], [address], KENDY Rose [employer] 06/22/2024 13:10:57 07/03/2024 text/html ROS as noted in the [facility] CRC Nurse Triage Notes (Ryann Maldonado - [...] Dementia (e.g., Alzheimer's Disease), Osteoarthritis, Cancer Comments: Research Methods Instructor verified the member's name//address and phone number. [...] s/s and seek emergency treatment if needed. Stock Ranch Supervisor Organization Information for Nick Oconnell Business Legal Name: [employer]. Address: [address] [place] [address], Diesel Machinist: Mason Willis MD CLIA No.: [id number] Stock Ranch Supervisor POC Test Results from Nick Oconnell Rapid COVID antigen (12:55:28) COVID: - Attachments uploaded as part of this test result can be found under Documents section. Rapid influenza antigen (12:55:30) Flu: - Attachments uploaded as part of this test result can be found under Documents section. .................... .................... .................... .................... .................... .................... .................... . Stock Ranch Supervisor Note From Nick Oconnell: Dispatched to [...] reports he has an appointment with his manager council on Friday for this. [facility] contacted, spoke with Dr. Ramos, advised of patient complaints, exam findings and test results. [facility] believes likely URI, recommends continued home care and monitoring and use of home nebulizer tx q6hrs. Patient and advised of [facility] recommendations, home care and red flags. Patient and understand all recommendations. Patient and have no additional questions or concerns at this time. OK8 clear. EOR. .................... .................... .................... .................... .................... .................... .................... . [facility] Consulted: Reji Ramos .................... .................... .................... .................... .................... .................... .................... . Disposition: Fulfilled REJI RAMOS MD [address] [facility],[address], [place], [address], [employer] 07/03/2024 21:39:58 07/12/2024 text/html ROS as noted in the HPI This was a supervised home visit with pocket secretary assembler Benny Meade. CRC Nurse Triage Notes (Gilberto Gibbons - RN): Reason For Request: Pt's spouse Sylvia a severe cough>[facility]> Patient Reports: [...] time of the visit was too late Research Methods Instructor verified the Pt.'s name//address and phone number. Education provided on the response time and the Pt. was advised to monitor reported s/s and seek emergency treatment if needed. reports the pt is feeling unwell with a cough/cold and congestion - [facility] - S/S are not improving - Seen by manager council with a negative chest x-ray -Taking over the counter cough medication with no relief - Follow up requested - [facility] notes: he evaluation revealed a 69-year-old male [...] .................... .................... .................... .................... .................... .................... . Stock Ranch Supervisor Note From Benny Meade: This visit [...] The white states the patient saw his manager council last week and had a negative chest [...] .................... .................... .................... .................... .................... .................... . [facility] Consulted: Skip Tovar .................... .................... .................... .................... .................... .................... .................... . Disposition: Nish Tovar MD [address] [place] [address],[address], [place], [address], [employer] 07/12/2024 12:21:45
--- OUTSIDE RECORDS SUMMARY | 2025-05-07 13:14 | XMS_ITS | Patient Health Record ---
Author Organization [facility] Address [address] [place] [address] Care Team Providers Care Fish Hatchery Worker Name Role Phone Chung GONZALES [place] Primary Care Provider Rodolfo Tran Unavailable [phone] Allergies No Known Allergies Results Component Value [...] clonazePAM Not-Takin g Vitamin D3 250 MCG (99218 UT) as directed Orally Active Extra Depth [...] Problem Acquired hammer toe of right foot (6656918802288 105) Other hammer toe(s) (acquired), right foot (M20.41) Active confirmed Response to treatment,I mprovement Problem Acquired hammer toe of left foot (6078108498150 103) Other hammer toe(s) (acquired), left foot (M20.42) Active confirmed Response to treatment,I mprovement Problem Type 2 diabetes mellitus with peripheral angiopathy (936754321) Type 2 diabetes mellitus with diabetic peripheral angiopathy without gangrene (E11.51) Active confirmed Q7(A), Q8(2B), Q9(1B,2C) Vital Signs Blood pressure diastolic 86 mm Hg 09/29/2024 Height 5ft 11in in 12/27/2024 Blood pressure systolic 132 mm Hg 09/29/2024 Weight 178 lbs 12/27/2024 BMI 24.82 kg/m2 12/27/2024 Procedures Procedure Date Ordered Date Performed Result Body Sit e 46633-VVPAXMJ NAIL, 1-5 06/24/2024 N/A 26380-LEEH SKIN LESIONS, 2 TO 4 06/24/2024 N/A Z2908-TUMRNCRM DYSTROPHIC NAILS ANY # 06/24/2024 N/A 72210-WYWNPDR NAIL, 1-5 09/29/2024 N/A 06648-FYAN SKIN LESIONS, 2 TO 4 09/29/2024 N/A P9981-OKJABLJB DYSTROPHIC NAILS ANY # 09/29/2024 N/A 47393-HDSGVQH NAIL, 1-5 12/27/2024 N/A 83366-BDTG SKIN LESIONS, 2 TO 4 12/27/2024 N/A O5421-SSFSQEQZ DYSTROPHIC NAILS ANY # 12/27/2024 N/A Encounters Encounter Location Date Provider Diagnosis [address] [address] 06/24/2024 Rodolfo Kaplan Type 2 diabetes mellitus with diabetic peripheral angiopathy without gangrene E11.51 ; Tinea unguium B35.1 ; Pain in right toe(s) M79.674 ; Pain in left toe(s) M79.675 ; Other hammer toe(s) (acquired), right foot M20.41 and Other hammer toe(s) (acquired), left foot M20.[address] [address] 09/29/2024 Rodolfo Kaplan Type 2 diabetes mellitus with diabetic peripheral angiopathy without gangrene E11.51 ; Tinea unguium B35.1 ; Pain in right toe(s) M79.674 and Pain in left toe(s) M79.[address] [address] 12/27/2024 Rodolfo Kaplan Type 2 diabetes mellitus with diabetic peripheral angiopathy without gangrene E11.51 ; Tinea unguium B35.1 ; Pain in right toe(s) M79.674 and Pain in left toe(s) M79.675 [facility] [address] [place] [address] 03/22/2025 Rodolfo Kaplan [address] [address] 06/14/2024 Rodolfo Kaplan [facility] [address] [place] [address] 12/23/2024 Rodolfo Kaplan Assessments Encounter Date Diagnosis (ICD Code) Assessment Notes Treatment Notes Treatment Clinical Notes Section Notes 06/24/2024 Tinea unguium (ICD-10 - B35.1) 06/24/2024 [...] Treatment Pending Test Test Name Order Date 51355-QFNKPOU NAIL, 1-5 01/07/2024 39199-GQLQXAC NAIL, 1-5 03/18/2024 49604-XZXDYOM NAIL, 1-5 06/24/2024 00298-OBXCYED NAIL, 1-5 09/29/2024 42480-KMMMFPD NAIL, 1-5 12/27/2024 25874-JAIY SKIN LESIONS, 2 TO 4 12/28/19 91119-AIVP SKIN LESIONS, 2 TO 4 09/30/19 50374-JCDN SKIN LESIONS, 2 TO 4 06/24/20 24 57860-XNLB SKIN LESIONS, 2 TO 4 01/07/20 24 59114-RZFX SKIN LESIONS, 2 TO 4 03/18/20 24 E5834-VBERBXVL DYSTROPHIC NAILS ANY # A3312-PXCTYJET DYSTROPHIC NAILS ANY # M5581-PSONUOKQ DYSTROPHIC NAILS ANY # P9835-IMVRPKQS DYSTROPHIC NAILS ANY # R5782-LQUOOLOC DYSTROPHIC NAILS ANY # Insurance Providers Payer Name Payer Address Payer Phone Subscriber Number Group Number Insured Name Patient Relationship to Insured Coverage Start Date Coverage End Date [facility] [employer] Claims [address] [place] [address] [id number] Elijah Bearden Self - patient is the [...]
--- OUTSIDE RECORDS SUMMARY | 2025-05-07 13:14 | XMS_ITS | Clinical Summary ---
Author Organization [facility] Address [address] [place] [address] Care Team Providers Care Supervisor Personnel Clerks Name Role Phone ChungYuri Primary Care Provider [phone] Allergies Active Allergy Reactions Criticality Noted Date [...] complete this topic Procedures * Due to [place] [employer] law, this organization might not be sharing negative HIV tests. Procedure Name Priority Date/Time Associated Diagnosis Comments AMB EXTERNAL CT CHEST, OUTSIDE RESULT 07/21/2024 COLONOSCOPY 06/21/2009 1:45 PM EST from Last 3 Months or Most Recently Relevant to Health Maintenance Results * Due to [place] [employer] law, this organization might not be sharing [...] Relevant to Health Maintenance Insurance HS/FREE CARE [facility] [employer] [facility] [place] [id number] Advance Directives Documents on File Type Date Recorded Patient Supervisor Treating And Pumping Expl anation Health Care Proxy 12/13/2020 10:22 AM * Full Code (Latest Code Status on File) Date Activated Date Inactivated Comments 12/27/2020 6:01 AM 12/29/2020 4:55 PM Healthcare Agents on File Name Relationship [facility] Sylvia Bearden Spouse Health Care Agent Elijah Bearden Son Alternate Health Care Agent Care Teams Supervisor Personnel Clerks Relationship Specialty Start Date End Date Yuri Wilkes [address] [place] [address] [place] [address] PCP - General Internal Medicine 12/13/20
[2025-05-07 13:56] VITALS: BP 128/70; PULSE 64; RESP 16; TEMP 36.6; O2SAT 99
== END 2025-05-07 13:56 | disposition home or self-care (01) ==
PROVIDERS: Physician Assistant; Emergency Provider Emergency Medicine Emergency Medical Services; PCP Internal Medicine
DX: R05.3 Chronic cough (principal); Z03.818 Encounter for observation for suspected exposure to other biological agents ruled out
CPT/HCPCS: 71046; 87502; 87635; 99282; 99283; 99284

== ENCOUNTER → 2025-05-07 12:26 | Outpatient (BNV) | payer OTHER, SELFPAY | PROVIDERS: Emergency Provider Emergency Medicine Emergency Medical Services; PCP Internal Medicine; Visit Provider Radiology Diagnostic Radiology | DX: R05.9 Cough, unspecified (principal) | CPT/HCPCS: 71046 ==

== ENCOUNTER 2025-05-18 08:03 | Outpatient (REF) | payer OTHER, SELFPAY ==
--- OUTSIDE RECORDS SUMMARY | 2024-06-14 08:00 | XMS_ITS ---
Author Organization [facility] Address [address] [place] [address] KENDY Thakur [address] Care Team Providers Care Physician Relations Specialist Name Role Phone Chung GONZALES, Yuri Primary Care Provider UnaRodolfo Jenkins Unavailable [phone] Encounters Encounter Location Date Provider Diagnosis [address] [address] 06/14/2024 Rodolfo Kaplan Plan Of Treatment No Information Progress Notes * Elijah BEARDENDOB:1955 ( 70 yo M)Acc No.[id number]:06/14/2024 Progress Note Patient: Elijah GARAY Provider: Luz Kaplan DPM :1955 A ge:69 Y S ex:Male Date:06/14/2024 Address:[address] [id number] Pcp:Yuri Wilkes MD Subjective: * Chief Complaints: [...] Date: 08/15/2023 Generated for Everti ng/Faxing/eTransmitting on: 07/18/2024 08:06 AM EST
--- OUTSIDE RECORDS SUMMARY | 2024-12-23 09:45 | XMS_ITS ---
Author Organization [facility] Address [address] [place] [address] KENDY Thakur [address] Care Team Providers Care Painter Mirror Name Role Phone Chung GONZALES, Yuri Primary Care Provider UnaRodolfo Jenkins Unavailable [phone] Encounters Encounter Location Date Provider Diagnosis [address] [address] 12/23/2024 Rodolfo Kaplan Plan Of Treatment No Information Progress Notes * Elijah BEARDENDOB:1955 ( 70 yo M)Acc No.[id number]:12/23/2024 Progress Note Patient: Elijah GARAY Provider: Luz Kaplan DPM :1955 A ge:69 Y S ex:Male Date:12/23/2024 Address:[address] [id number] Pcp:Yuri Wilkes MD Subjective: * Chief Complaints: [...] Kaplan DPM Date: 0 12/23/2024 Generated for Everti ng/Faxing/eTransmitting on: 1 07/18/2024 08:06 AM EST
--- OUTSIDE RECORDS SUMMARY | 2025-03-24 09:00 | XMS_ITS ---
Author Organization [facility] Address [address] [place] [address] KENDY Thakur [address] Care Team Providers Care Hospice Nurse Name Role Phone Chung GONZALES, Yuri Primary Care Provider UnaRodolfo Jenkins Unavailable [phone] Encounters Encounter Location Date Provider Diagnosis [address] [address] 03/24/2025 oRdolfo Kaplan Plan Of Treatment No Information Progress Notes * Domenic BEARDENjostinDOB:1955 ( 70 yo M)Acc No.[id number]:03/24/2025 Progress Note Patient: Elijah GARAY Provider: Luz Kaplan DPM :1955 A ge:70 Y S ex:Male Date:03/24/2025 Address:[address] [id number] Pcp:Yuri Wilkes MD Subjective: * Chief Complaints: * * Medical History: Objective: * Vitals: Assessment: Plan: * Treatment: * Images: * The named appointment provid er may or may not be the originator of this progress note, and it is not deemed complete until electronically signed by the appointment provider. Sign off status: Pending * Provider: Luz Kaplan DPM Date: 0 03/24/2025 Generated for Everti ng/Faxing/eTransmitting on: 1 07/18/2024 08:06 AM EST
--- OUTSIDE RECORDS SUMMARY | 2025-05-18 08:06 | XMS_ITS | Patient Health Record ---
Author Organization [facility] Address [address] [place] [address] Care Team Providers Care Certified Alcohol Counselor Name Role Phone Chung GONZALES [place] Primary Care Provider Rodolfo Tran Unavailable [phone] Allergies No Known Allergies Results Component Value [...] clonazePAM Not-Takin g Vitamin D3 250 MCG (31621 UT) as directed Orally Active Extra Depth [...] Problem Acquired hammer toe of right foot (2745361678306 105) Other hammer toe(s) (acquired), right foot (M20.41) Active confirmed Response to treatment,I mprovement Problem Acquired hammer toe of left foot (6915310895082 103) Other hammer toe(s) (acquired), left foot (M20.42) Active confirmed Response to treatment,I mprovement Problem Type 2 diabetes mellitus with peripheral angiopathy (624145251) Type 2 diabetes mellitus with diabetic peripheral angiopathy without gangrene (E11.51) Active confirmed Q7(A), Q8(2B), Q9(1B,2C) Vital Signs Blood pressure diastolic 86 mm Hg 09/29/2024 Height 5ft 11in in 12/27/2024 Blood pressure systolic 132 mm Hg 09/29/2024 Weight 178 lbs 12/27/2024 BMI 24.82 kg/m2 12/27/2024 Procedures Procedure Date Ordered Date Performed Result Body Sit e 48705-MNTUZOQ NAIL, 1-5 06/24/2024 N/A 69061-FRQD SKIN LESIONS, 2 TO 4 06/24/2024 N/A I8122-OFOKAQPW DYSTROPHIC NAILS ANY # 06/24/2024 N/A 49367-CIWIEDM NAIL, 1-5 09/29/2024 N/A 93808-WIXE SKIN LESIONS, 2 TO 4 09/29/2024 N/A W5287-LLDZCHFO DYSTROPHIC NAILS ANY # 09/29/2024 N/A 35878-BQRNSCF NAIL, 1-5 12/27/2024 N/A 20583-RIYS SKIN LESIONS, 2 TO 4 12/27/2024 N/A G1481-KHOSDBIV DYSTROPHIC NAILS ANY # 12/27/2024 N/A Encounters Encounter Location Date Provider Diagnosis [address] [address] 06/24/2024 Rodolfo Kaplan Type 2 diabetes mellitus with diabetic peripheral angiopathy without gangrene E11.51 ; Tinea unguium B35.1 ; Pain in right toe(s) M79.674 ; Pain in left toe(s) M79.675 ; Other hammer toe(s) (acquired), right foot M20.41 and Other hammer toe(s) (acquired), left foot M20.[address] [address] 09/29/2024 Rodolfo Kaplan Type 2 diabetes mellitus with diabetic peripheral angiopathy without gangrene E11.51 ; Tinea unguium B35.1 ; Pain in right toe(s) M79.674 and Pain in left toe(s) M79.[address] [address] 12/27/2024 Rodolfo Kaplan Type 2 diabetes mellitus with diabetic peripheral angiopathy without gangrene E11.51 ; Tinea unguium B35.1 ; Pain in right toe(s) M79.674 and Pain in left toe(s) M79.675 [facility] [address] [place] [address] 03/22/2025 Rodolfo Kaplan [address] [address] 06/14/2024 Rodolfo Kaplan [facility] [place] [address] [place] [address] 12/23/2024 Rodolfo Kaplan Assessments Encounter Date Diagnosis [...] Treatment Pending Test Test Name Order Date 88277-DKNCHEG NAIL, 1-5 01/07/2024 70969-CIZYLYE NAIL, 1-5 03/18/2024 59066-QXUJDAA NAIL, 1-5 06/24/2024 30262-UWVFPXR NAIL, 1-5 09/29/2024 63518-RJVHPEU NAIL, 1-5 12/27/2024 22192-CGFV SKIN LESIONS, 2 TO 4 12/28/19 05102-SIMG SKIN LESIONS, 2 TO 4 09/30/19 65980-ZGZM SKIN LESIONS, 2 TO 4 06/24/20 24 26434-UVPT SKIN LESIONS, 2 TO 4 01/07/20 24 47382-WARL SKIN LESIONS, 2 TO 4 03/18/20 24 V6892-DCMYFVDM DYSTROPHIC NAILS ANY # F3844-RVKGPCVX DYSTROPHIC NAILS ANY # S2592-TFHBNQKJ DYSTROPHIC NAILS ANY # E0768-QTJCIIMT DYSTROPHIC NAILS ANY # P7319-PZGQWSFS DYSTROPHIC NAILS ANY # Insurance Providers Payer Name Payer Address Payer Phone Subscriber Number Group Number Insured Name Patient Relationship to Insured Coverage Start Date Coverage End Date [facility] [employer] Claims [address] [place] [phone] [id number] Elijah Bearden Self - patient is the [...]
--- OUTSIDE RECORDS SUMMARY | 2025-05-18 08:06 | XMS_ITS | Clinical Summary ---
Author Organization [facility] Address [address] [place] [address] Care Team Providers Care Bilingual Interpreter Name Role Phone ChungYuri Primary Care Provider [phone] Allergies Active Allergy Reactions Criticality Noted Date [...] this topic Procedures * Due to [place] [employer] law, this organization might not be sharing negative HIV tests. 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
[2025-05-18 08:15] LABS: MANUAL DIFF FLAG NO
[2025-05-18 08:44] LABS: Hematocrit 45.5 % (42.0-52.0); Hemoglobin 15.8 g/dl (14.0-18.0); Imm Gran Abs Auto 0.01 X10*3/uL (0.00-0.03); Imm Gran Pct Auto 0.1 % (0.0-0.4); Lymphocytes Absolute Auto 2.4 X10*3/uL (1.2-4.9); Mean Corpuscular HGB Conc 34.7 g/dl (31.0-36.0); Mean Corpuscular Hemoglobin 30.9 pg (27.0-33.0); Mean Corpuscular Volume 89.0 fL (80.0-98.0); NRBC Abs Auto 0.000 X10*3/uL (0.0-0.012); NRBC Pct Auto 0.0 /100WBC (0.0-0.2); Platelet Count 294 X10*3/uL (160-400); Red Blood Count 5.11 X10*6/uL (4.60-5.80); White Blood Count 8.0 X10*3/uL (4.8-10.8)
[2025-05-18 09:09] LABS: Alanine Aminotransferase 12 U/L (0-40); Albumin Level 4.4 g/dL (3.5-5.0); Alkaline Phosphatase 61 U/L (39-117); Anion Gap 12 (12-20); Aspartate Amino Transferase 20 U/L (5-37); Blood Urea Nitrogen 19 mg/dL (9-16); Calcium 9.9 mg/dL (8.4-10.2); Carbon Dioxide 29 mmol/L (22-29); Chloride 105 mmol/L (96-108); Cholesterol 159 mg/dL (<200); Estimated Glomerular Filt Rate 59; HDL Cholesterol 40 mg/dL (>40); Potassium 3.9 mmol/L (3.3-5.1); Sodium 142 mmol/L (135-145); Total Protein 7.4 g/dL (6.5-8.0); Triglycerides 117 mg/dL (<150)
[2025-05-18 09:38] LABS: Folate 9.7 ng/mL (> or = 4.0); Vitamin B12 385 pg/mL (200-900)
== END 2025-05-18 08:04 | disposition home or self-care (01) ==
LOC: HO.LAB 08:03
PROVIDERS: PCP Internal Medicine; Visit Provider Internal Medicine
DX: E11.9 Type 2 diabetes mellitus without complications (principal); E53.8 Deficiency of other specified B group vitamins; E78.00 Pure hypercholesterolemia, unspecified; D64.9 Anemia, unspecified; E55.9 Vitamin D deficiency, unspecified
CPT/HCPCS: 36415; 80053; 80061; 82306; 82607; 82746; 83036; 84443; 85025

== ENCOUNTER 2025-05-20 10:37 | Outpatient (AMB) | payer OTHER, SELFPAY ==
--- NOTE | 2025-05-20 10:54 | MHC.PC.OV ---
Vital Signs 05/20/25 10:55 Height 5 ft 11 in Weight 174 lb 2.643 oz BMI 24.3 BP 110/80 Blood Pressure Location Lt brachial Position Sitting Pulse 76 Pulse Source Pulse Oximeter Pulse Oximetry (%) 98 Oxygen Delivery Method Room Air Intake Visit Reasons: follow up Intake Note: Patients states he continues to have a persistent cough. Insurance Follow Up Representative Required: No Accompanied by: Spouse Allergies No Known Allergies (No Known Allergies*) Allergy (Verified 05/20/25 11:28) Medication List - Last Reconciled 05/20/25 by Yuri Wilkes MD [ADULT PULL UPS (large) As directed] albuterol sulfate 2.5 mg (3 mL) inhalation QID PRN 30 days [Bed pads As directed] blood sugar diagnostic ([employer]ek [employer]s Ultra Test strips) As directed once a day blood-glucose meter ([employer]s Ultra2 Meter) As directed blood-glucose sensor (PlynkedStyle Jermaine 3 Sensor device) As directed blood-glucose,relationship counselor,cont (FreeStyle Jermaine 3 [place]) As directed budesonide 0.25 mg (2 mL) inhalation DAILY carbidopa-levodopa 25-100 mg 0.5 tabs PO QID 30 days cetirizine (Zyrtec) 10 mg PO DAILY PRN chair, wheel (Wheel chair) Transport wheelchair As directed. To reduce risk for falls secondary to gait d/o and Alzheimer's dementia. cholecalciferol (vitamin D3) 250 mcg PO 2XW 90 days clonazepam 0.25 mg (1/2 x 0.5 mg) PO BEDTIME PRN 30 days [Commode As directed] [DIABETIC SHOES (1 pair) As directed] [disposable bed pads /10 packs As directed] famotidine 20 mg PO BID 90 days fluticasone propionate 50 mcg/actuation 1 spray intranasal BID [Foam Mattress As directed] guaifenesin 200 mg (5 mL) PO Q4H PRN hydrochlorothiazide 12.5 mg PO DAILY 90 days [incontinent wipes / 10 packs As directed] ipratropium-albuterol 0.5 mg-3 mg(2.5 mg base)/3 mL 3 mL inhalation Q6H PRN lancets (That's SolarTouch UltraSoft Lancets) As directed once a day lancets As directed lancets (OneTouch UltraSoft 2 Lancet) As directed losartan 100 mg PO DAILY 90 days melatonin 9 mg (3 x 3 mg) PO BEDTIME 30 days memantine 28 mg PO DAILY 90 days metformin 1,000 mg PO DAILY [Non slip bath mat As directed] nut.tx.gluc.intol,lac-free,soy (Glucerna oral liquid) 1 can orally TID with meals; 30 days [One Touch Ultra 2 glucose monitor. As directed] [One touch ultra 2 lancets As directed] [One touch ultra 2 strips As directed] [Over the bed tray table As directed] [SHOE INSERTS (3 pairs) As directed] [Shower handle As directed] [Transport chair light weight As directed] walker (Ultra-Light Rollator misc) As directed [wedge pillow As directed] [wheelchair back cushion As directed] [wheelchair seat cushion As directed] Tobacco use date assessed: 12/02/24 Fall risk assessment: 1 Fall in past year Last assessed Fall Risk: 05/20/25 Dental Screening Dental Screen Date: 05/20/25 Did you have a dental visit in the last 12 months?: Yes Did you have a dental problem in the last 6 months where you did not have access to dental care?: No Was dental information given to patient?: Patient has dentist HPI follow up HPI Details Patient comes in today for his follow up visit - is as usual accompanied by his , who helps with his visit and provides most of patient's information and complaints as patient is limited in his ability to participate actively with his visit due to his dementia Patient is reportedly doing okay except for bouts of coughing that he always seems to have around 1:30 or 2 am 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 His states that his cough sounds like he has a lot of mucus and congestion in his chest but patient is not able to cough up his phlegm States that GI started him on Famotidine at bedtime thinking that the increased coughing may be due to acid reflux but that has not helped much States that they even got patient a wedge pillow to help prop him up and keep his head elevated when he is sleeping at night and that also made no difference His states that he would keep on coughing for about an hour or so almost every night and after that, his cough will just suddenly and completely stop and only then will he be able to go back to sleep Patient denies any sore throat and has had no fever lately He denies any headaches or dizziness Denies any chest pains, no increased shortness of breath No nausea/vomiting, no abdominal pain No change in bowel habits noted He had his follow-up labs done a couple of days ago - to discuss his results [facility] Medical History Cerebral amyloid angiopathy Obstructive sleep apnea Overweight (BMI 25.0-29.9) Alzheimer's dementia Depression Vitamin D deficiency Memory impairment Renal cell carcinoma of right kidney Essential hypertension Type 2 diabetes mellitus with unspecified complications H/O malignant neoplasm of small intestine Diverticula of colon Kidney mass Anemia Diabetes Hypertension Surgical History Hx of colonoscopy Hx of kidney removal History of esophagogastroduodenoscopy (EGD) H/O sinus surgery Family History Father No problems noted. Mother Heart disease Pancreas cancer Maternal Grandmother Stomach cancer Social History Household Members: Spouse Housing: Apartment Are you a primary women's health care nurse practitioner to a significant other at home: No Do you presently have visiting nurse or other home services: Yes Alcohol intake: former Comment: given as premed Patient Tobacco Use Status: Former Tobacco user Tobacco use type: Cigar e-Cigarette/Vaping Use: Never Used Second Hand Smoke Exposure: No Advance Directives Date on File: 09/12/20 service: No Current occupational status: retired Cognitive needs: No Hearing needs: No Vision needs: Yes (glasses) Questionnaire PHQ-9 Over the last 2 weeks, how often have you been bothered by any of the following problems? 1. Little interest or pleasure in doing things: not at all 2. Feeling down, depressed, or hopeless: not at all 3. Trouble falling or staying asleep, or sleeping too much: not at all 4. Feeling tired or having little energy: not at all 5. Poor appetite or overeating: not at all 6. Feeling bad about yourself - or that you are a failure or have let yourself or your family down: not at all 7. Trouble concentrating on things, such as reading the newspaper or watching television: not at all 8. Moving or speaking so slowly that other people could have noticed. Or the opposite - being so fidgety or restless that you have been moving around a lot more than usual: nearly every day 9. Thoughts that you would be better off or of hurting yourself in some way: not at all Total score: 3 Depression Screening Interpretation: Positive Depression Screening Follow-up: Existing condition and Follow-up Visit Requested Depression Screening Done: Yes 58243 - PHQ-9 Billing: Yes Source: Developed by Drs. Ashkan Henning, Heena Raphael, Rafiq Cristina and colleagues, with an educational edwige from [employer]. Thrive Questionnaire Date Thrive assessed: 05/20/25 I am a: Parent/Caregiver What is your living situation today?: I have a steady place to live Within the past 12 months, did the food you bought not last and you didn't have the money to get more?: Never true Within the past 12 months, did you worry whether your food would run out before you got money to buy more?: Never true Do you have trouble paying for medicines?: No Do you have trouble getting transportation to medical appointments?: No Do you have trouble paying your heating and electricity bill?: No Do you have trouble taking care of your child, family member or friend?: No Do you have trouble with day-to-day activities such as bathing, preparing meals, shopping, managing finances, etc.?: Yes Are you currently unemployed and looking for a job?: No Are you interested in more education?: No Please select the resources that you would like help with: None Currently or been in a relationship where the following occur: No concerns reported THRIVE Score: 0 AUDIT C Alcohol Use Questionnaire (AUDIT-C) 1. How often do you have a drink containing alcohol?: Never 3. How often do you have six or more drinks on one occasion?: Never Total Score: 0 Score Reviewed/Action Taken: Yes LAURA-7 AMB Questionnaire LAURA-7 Date LAURA - 7 assessed: 05/20/25 Feeling nervous, anxious, or on edge: 0 = Not at all Not being able to stop or control worryin = Not at all Worrying too much about different things: 0 = Not at all Trouble relaxin = Not at all Being so restless that it is hard to sit still: 1 = Several days Becoming easily annoyed or irritable: 1 = Several days Feeling afraid as if something awful might happen: 0 = Not at all Total LAURA-7 score (0-4 normal; 5-9 mild; 10-14 moderate; 15-21 severe): 2 Source: Developed by Drs. Ashkan Henning, Heena Raphael, Rafiq Cristina and colleagues, with an educational edwige from [employer]. Review of Systems Const Details: information here is obtained primarily from patient's as patient is cognitively impaired and does not verbalize or talk much Denies chills, Denies difficulty sleeping (sleeping better with his CPAP device), Denies fatigue, Denies fever(s) and Denies headache(s) ENT Denies dysphagia, Denies dizziness, Denies otalgia, Denies headache(s), Denies neck pain, Denies odynophagia and Denies sore throat Card Denies chest pain, Denies palpitations and Denies dyspnea Resp Denies chest congestion, Reports cough (recurrent - see HPI for details), Denies dyspnea and Denies wheezing GI Denies abdominal pain, Denies constipation (better controlled on Rx), Denies dysphagia, Denies heartburn, Denies diarrhea, Denies nausea, Denies odynophagia and Denies vomiting Denies hematuria, Denies dysuria and Reports urinary incontinence (due to his dementia - wears adult pull-ups) Musc Denies back pain and Denies neck pain Skin/Breast Denies rash Neuro Denies behavioral changes, Reports confusion (on and off), Denies dizziness, Denies headache(s) and Reports memory loss (forgetful/confused at times) Psych Denies behavioral changes, Reports confusion (on and off) and Reports memory loss (forgetful/confused at times) Endo Denies fatigue and Denies palpitations Aller/Immun Denies wheezing Physical exam (Primary Care) Vital Signs: Last Vital Signs Pulse 76 05/20/25 10:55 BP 110/80 05/20/25 10:55 Pulse Ox 98 05/20/25 10:55 Oxygen Delivery Method Room Air 05/20/25 10:55 BMI result Body Mass Index 24.3 Tobacco/Smoking Status: Tobacco use Status Tobacco use date assessed 12/02/24 05/20/25 10:56 Patient Tobacco Use Status Former Tobacco user 05/20/25 10:56 Tobacco use type Cigar 05/20/25 10:56 e-Cigarette/Vaping Use Never Used 05/20/25 10:56 PHQ-9: PHQ-9 Score PHQ-9: Total score 3 05/20/25 11:06 Depression Screening Interpretation: Positive Depression Screening Follow-up: Existing condition and Follow-up Visit Requested Thrive Assessment: Date of Thrive Assessment Date Thrive assessed 05/20/25 05/20/25 11:05 Currently or been in a relationship where the following occur: No concerns reported Const General: confusion (on and off) Orientation/consciousness: confusion (on and off) HENMT Ears: TM's normal bilaterally and EAC's normal Throat: Yes posterior oropharynx normal and Yes tonsils normal (no TP congestion) Neck Neck: Yes supple and No lymphadenopathy Thyroid: Thyroid normal Resp Auscultation: clear to auscultation bilaterally, no rales and no wheezes Cardio Rate: regular rate Rhythm: regular rhythm Heart sounds: no murmurs GI Palpation (GI): Soft to palpation and nontender Auscultation: normal bowel sounds General: Yes no CVA tenderness Back/Spine/Pelvis Back: no CVA tenderness Thoracic/Lumbar Spine: No lumbar spinal tenderness Skin Rashes: no rashes Neuro General: confusion (on and off) Extrem General: Yes no clubbing, cyanosis or edema Results Reviewed Results Reviewed: Laboratory Tests 05/18/25 08:14 WBC 8.0 Hgb 15.8 Hct 45.5 Plt Count 294 Sodium 142 Potassium 3.9 Creatinine 1.23 Estimated GFR 59 Fasting Glucose 163 H Hemoglobin A1c % 6.4 H Calcium 9.9 AST 20 ALT 12 Triglycerides 117 Cholesterol 159 LDL Cholesterol, Calc 96 HDL Cholesterol 40 L Vitamin B12 385 25-OH Vitamin D Total 55.3 TSH 1.91 Coding Level of Care Code Est Pt Level 4 (86241) Diagnoses Alzheimer's dementia without behavioral disturbance, psychotic disturbance, mood disturbance, or anxiety, unspecified dementia severity, unspecified timing of dementia onset G30.9; F02.80 Alzheimer's disease onset: unspecified onset Dementia severity: unspecified severity Dementia behavioral or psychological symptom: without behavioral, psychotic, or mood disturbance or anxiety Type 2 diabetes mellitus with unspecified complications E11.8 Essential hypertension I10 Recurrent cough R05.8 Gastritis without bleeding, unspecified chronicity, unspecified gastritis type K29.70 Gastritis type: unspecified gastritis Chronicity: unspecified Gastritis bleeding: without bleeding Renal cell carcinoma of right kidney C64.1 H/O malignant neoplasm of small intestine Z85.068 Obstructive sleep apnea G47.33 Vitamin D deficiency E55.9 Episode of recurrent major depressive disorder, unspecified depression episode severity F33.9 Depression Type: major depressive disorder Major depression recurrence: recurrent Active/Remission status: currently active Major depression episode severity: unspecified Additional Codes PHQ-9 - 29807 - PHQ-9 Billing: Yes ([id number]) Assessment & Plan Assessment & Plan (1) Alzheimer's dementia: Code(s): G30.9 - Alzheimer's disease, unspecified; F02.80 - Dementia in other diseases classified elsewhere, unspecified severity, without behavioral disturbance, psychotic disturbance, mood disturbance, and anxiety Category: Medical Qualifiers: Alzheimer's disease onset: unspecified onset Dementia severity: unspecified severity Dementia behavioral or psychological symptom: without behavioral, psychotic, or mood disturbance or anxiety Qualified Code(s): G30.9 - Alzheimer's disease, unspecified; F02.80 - Dementia in other diseases classified elsewhere, unspecified severity, without behavioral disturbance, psychotic disturbance, mood disturbance, and anxiety Plan: Head CT done in 2020 revealed (+) mild to moderate frontoparietal cortical atrophy Patient used to see Dr. Bradley for neurology follow up but switched over to [facility] last year Repeat brain MRI done back in June 2023 revealed (+) mild to moderate cerebral volume loss with associated ventricular and sulcal prominence and mild to moderate chronic microvascular ischemic changes. There were also findings suggestive of cerebral amyloid angiopathy Continue Donepezil 5 mg QD and Memantine 21 mg QD Follow up with [facility] as scheduled Per request, will also provide them with a printed Rx for an [id number] tray - this was faxed over to [facility] about 3 weeks ago but patient's states that they never got this from [facility] (2) Type 2 diabetes mellitus with unspecified complications: Code(s): E11.8 - Type 2 diabetes mellitus with unspecified complications Category: Medical Plan: Results of his labs done a couple of days ago reviewed and discussed with patient's His HgbA1c has improved to 6.4% on his recent labs (was previously at 7.2% a few months ago) - goal is at least < 7.0% Reinforced diabetic diet - have again advised patient's to help him with this and take charge of his diet as patient would not be able to do this on his own due to his dementia Continue Metformin 1000 mg QD (3) Essential hypertension: Code(s): I10 - Essential (primary) hypertension Category: Medical Plan: Reinforced low sodium diet - goal is systolic BP of at least 130 mm or less Continue Losartan 100 mg QD and HCTZ 12.5 mg QD; he used to also take Amlodipine 2.5 mg QD but this was discontinued a few months ago and he has been doing well since (4) Recurrent cough: Code(s): R05.8 - Other specified cough Category: Medical Plan: Still unclear at this time what is triggering his cough and he seems to get this consistently around 1:30 to 2:00 am 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 and have them for an hour or so before they subside and calm down He underwent allergy testing, which came back normal He has been started on a trial of Arnuity Ellipta 100 mcg 1 inhalation once a day with some improvement of his recurrent cough although patient is not really able to use his inhalers properly due to his dementia He is also on Albuterol HFA 1-2 inhalation 4 times a day as needed and Cetirizine 10 mg QD He was tried on Famotidine 20 mg BID, including at bedtime and even had a wedge pillow placed recently to help keep his head elevated to no avail Will try him on Benzonatate 200 mg PRN but other than that, we do not really know at this time what else to try him on Follow-up with pulmonary as scheduled (5) Gastritis: Code(s): K29.70 - Gastritis, unspecified, without bleeding Category: Medical Qualifiers: Gastritis type: unspecified gastritis Chronicity: unspecified Gastritis bleeding: without bleeding Qualified Code(s): K29.70 - Gastritis, unspecified, without bleeding Plan: Dietary restrictions reinforced; his previous abdominal symptoms have improved with Rx Continue Omeprazole 20 mg QD and Famotidine 20 mg BID (6) Renal cell carcinoma of right kidney: Comment: Clear cell carcinoma, pathological staging pT1a pNx Code(s): C64.1 - Malignant neoplasm of right kidney, except renal pelvis Category: Medical Plan: S/P partial nephrectomy on 12/27/2020 - tumor was limited to the kidney, with no sarcomatoid features, no tumor necrosis or lymphovascular invasion and margins are negative Follow up with urology as scheduled for continuing surveillance (7) 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, AJCC stage III S/P small bowel resection (distal jejunum, proximal ileum and mesentery) and primary small bowel anastomosis on 02/23/2020 Completed adjuvant chemotherapy with modified FOLFOX regimen from 03/2020 to September 2020 Code(s): Z85.068 - Personal history of other malignant neoplasm of small intestine Category: Medical Plan: Diagnosed in 2019 S/P surgical resection and adjuvant chemotherapy Follow up with oncology and GI as scheduled for continuing surveillance and monitoring (8) Obstructive sleep apnea: Comment: Mild degree of sleep apnea. The AHI was 08/hr and oxygen bucky was 87%. Code(s): G47.33 - Obstructive sleep apnea (adult) (pediatric) Category: Medical Plan: Patient had a home sleep study done in July 2023 that revealed mild JACI He was recommended to try an oral device first prior to transitioning to AutoPap recommended at 5 to 15 cm H2O Follow up with Sleep Medicine as scheduled (9) Vitamin D deficiency: Code(s): E55.9 - Vitamin D deficiency, unspecified Category: Medical Plan: Continue Vitamin D3 250 mcg 2 times a week (10) Depression: Code(s): F32.A - Depression, unspecified Category: Medical Qualifiers: Depression Type: major depressive disorder Major depression recurrence: recurrent Active/Remission status: currently active Major depression episode severity: unspecified Qualified Code(s): F33.9 - Major depressive disorder, recurrent, unspecified Plan: Continue Quetiapine 12.5 mg BID Plan Follow up in 4 months Orders: Orders Complete Blood Count Auto Diff 4 Months D64.9 - Anemia, unspecified Comprehensive [place]. Panel Fast 4 Months E78.00 - Pure hypercholesterolemia, unspecified Hemoglobin A1c 4 Months E11.9 - Type 2 diabetes mellitus without complications Vitamin B12 and Folate 4 Months E53.8 - Deficiency of other specified B group vitamins Vitamin D 25-OH Total 4 Months E55.9 - Vitamin D deficiency, unspecified Lipid Panel 4 Months E78.00 - Pure hypercholesterolemia, unspecified Medications: New benzonatate 200 mg PO BID PRN 60 caps 1RF cough Refilled [Over the bed tray table] As directed 1 ea 0RF
[2025-05-20 10:55] VITALS: BP 110/80; PULSE 76; O2SAT 98; BMI 24.3
== END 2025-05-20 11:46 | disposition home or self-care (01) ==
LOC: HO.HMCH 10:37
PROVIDERS: PCP Internal Medicine; Visit Provider Internal Medicine
DX: E11.8 Type 2 diabetes mellitus with unspecified complications (principal); G30.9 Alzheimer's disease, unspecified; F02.80 Dementia in other diseases classified elsewhere, unspecified severity, without behavioral disturbance, psychotic disturbance, mood disturbance, and anxiety; C64.1 Malignant neoplasm of right kidney, except renal pelvis; I10 Essential (primary) hypertension; R05.8 Other specified cough; K29.70 Gastritis, unspecified, without bleeding; Z85.068 Personal history of other malignant neoplasm of small intestine; G47.33 Obstructive sleep apnea (adult) (pediatric); E55.9 Vitamin D deficiency, unspecified; F33.9 Major depressive disorder, recurrent, unspecified

== ENCOUNTER → 2025-05-20 10:37 | Outpatient (BNVA) | payer OTHER, SELFPAY | PROVIDERS: PCP Internal Medicine; Visit Provider Internal Medicine | DX: I10 Essential (primary) hypertension (principal); G30.9 Alzheimer's disease, unspecified; F02.80 Dementia in other diseases classified elsewhere, unspecified severity, without behavioral disturbance, psychotic disturbance, mood disturbance, and anxiety; E11.8 Type 2 diabetes mellitus with unspecified complications; R05.8 Other specified cough; K29.70 Gastritis, unspecified, without bleeding; C64.1 Malignant neoplasm of right kidney, except renal pelvis; G47.33 Obstructive sleep apnea (adult) (pediatric); E55.9 Vitamin D deficiency, unspecified; F33.9 Major depressive disorder, recurrent, unspecified; Z85.068 Personal history of other malignant neoplasm of small intestine | CPT/HCPCS: 96127; 99212 ==

== ENCOUNTER 2025-05-23 14:18 | Outpatient (REF) | payer OTHER, SELFPAY ==
--- NOTE | 2025-05-23 14:33 | EEG_ITS ---
Reason for Exam: R25.9 abnormal involuntary movements History: Patient has had memory issues since he underwent chemotherapy for colon cancer stopped 4 yrs ago?and since this has progressed. Pt cognitive symptoms are worse in the evening- he is confused at night. Patient has daily episodes of head jerking when noted to being anxious. Medications: benzonatate, bisacodyl, budesonide, cetirizine, cholecalciferol (vitamin D3), dextromethorphan-guaifenesin, famotidine, fluticasone propionate, guaifenesin, hydrochlorothiazide, ipratropium-albuterol, losartan, melatonin, memantine, metformin Technical Description Photic Stimulation: completed Hyperventilation: omitted Behavioral State: cooperative, follows commands with multiple prompts State of Consciousness: awake Skull Defect: none Sedation: none Handedness: right Duration: 31 min 47 sec Description: This is a 16 channel EEG with an EKG lead. Patient is reported awake during the tracing. Background EEG rhythm is low amplitude theta to delta range with underlying fast alpha type of activity. Photic stimulation does not produce any significant driving. Hyperventilation is not performed. Cardiac lead does not reveal any significant abnormality. Frequent lead and muscle artifacts are noted. No obvious sharp wave spikes or paroxysmal tendency noted. Impression: Generalized slowing with no evidence of seizure disorder. MTDD
== END 2025-05-23 14:19 | disposition home or self-care (01) ==
LOC: HO.NEURO 14:18
PROVIDERS: PCP Internal Medicine; Visit Provider Nurse Practitioner Family
DX: E85.4 Organ-limited amyloidosis (principal); I68.0 Cerebral amyloid angiopathy; R25.9 Unspecified abnormal involuntary movements; G30.9 Alzheimer's disease, unspecified; F02.80 Dementia in other diseases classified elsewhere, unspecified severity, without behavioral disturbance, psychotic disturbance, mood disturbance, and anxiety
CPT/HCPCS: 95816

== ENCOUNTER → 2025-05-23 14:33 | Outpatient (BNV) | payer OTHER, SELFPAY | PROVIDERS: PCP Internal Medicine; Visit Provider Psychiatry & Neurology Neurology | DX: R25.9 Unspecified abnormal involuntary movements (principal) | CPT/HCPCS: 95816 ==

== ENCOUNTER 2025-06-23 12:16 | Outpatient (AMB) | payer OTHER, SELFPAY ==
--- OUTSIDE RECORDS SUMMARY | 2024-06-14 08:00 | XMS_ITS ---
Author Organization [facility] Address [address] [place] [address] K[place]Y Thakur [address] Care Team Providers Care Lawn Specialist Name Role Phone Chung GONZALES, Yuri Primary Care Provider UnaRodolfo Jenkins Unavailable [phone] Encounters Encounter Location Date Provider Diagnosis [address] [address] 06/14/2024 Rodolfo Kaplan Plan Of Treatment No Information Progress Notes * Elijah BEARDENDOB:1955 ( 70 yo M)Acc No.[id number]:06/14/2024 Progress Note Patient: Elijah GARAY Provider: Luz Kaplan DPM :1955 A ge:69 Y S ex:Male Date:06/14/2024 Address:[address] [id number] Pcp:Yuri Wilkes MD Subjective: * Chief Complaints: * * Medical History: Objective: * Vitals: Assessment: Plan: * Treatment: * Images: * The named appointment provid er may or may not be the originator of this progress note, and it is not deemed complete until electronically signed by the appointment provider. Sign off status: Pending * Provider: Luz Kaplan DPM Date: 08/15/2023 Generated for Everti ng/Faxing/eTransmitting on: 08/24/2024 04:10 PM EST
--- OUTSIDE RECORDS SUMMARY | 2024-12-23 09:45 | XMS_ITS ---
Author Organization [facility] Address [address] [place] [address] KENDY Thakur [address] Care Team Providers Care Interlocking Installer Name Role Phone Chung GONZALES, Yuri Primary Care Provider UnaRodolfo Jenkins Unavailable [phone] Encounters Encounter Location Date Provider Diagnosis [address] [address] 12/23/2024 Rodolfo Kaplan Plan Of Treatment No Information Progress Notes * Elijah BEARDENDOB:1955 ( 70 yo M)Acc No.[id number]:12/23/2024 Progress Note Patient: Elijah GARAY Provider: Luz Kaplan DPM :1955 A ge:69 Y S ex:Male Date:12/23/2024 Address:[address] [id number] Pcp:Yuri Wilkes MD Subjective: * Chief Complaints: * * Medical History: Objective: * Vitals: Assessment: Plan: * Treatment: * Images: * The named appointment provid er may or may not be the originator of this progress note, and it is not deemed complete until electronically signed by the appointment provider. Sign off status: Pending * Provider: Luz Kaplan DPM Date: 0 12/23/2024 Generated for Printi ng/Faxing/eTransmitting on: 1 08/24/2024 04:10 PM EST
--- OUTSIDE RECORDS SUMMARY | 2025-03-24 09:00 | XMS_ITS ---
Author Organization [facility] Address [address] [place] [address] KENDY Thakur [address] Care Team Providers Care Tank Charger Name Role Phone Chung GONZALES, Yuri Primary Care Provider UnaRodolfo Jenkins Unavailable [phone] Encounters Encounter Location Date Provider Diagnosis [address] [address] 03/24/2025 Rodolfo Kaplan Plan Of Treatment No Information Progress Notes * Elijah BEARDENDOB:1955 ( 70 yo M)Acc No.[id number]:03/24/2025 Progress Note Patient: Elijah GARAY Provider: Luz Kaplan DPM :1955 A ge:70 Y S ex:Male Date:03/24/2025 Address:[address] [id number] Pcp:Yuri Wilkes MD Subjective: * Chief Complaints: [...] Kaplan DPM Date: 0 03/24/2025 Generated for Printi ng/Faxing/eTransmitting on: 1 08/24/2024 04:09 PM EST
[2025-06-23 12:40] VITALS: BP 120/71; PULSE 84
--- NOTE | 2025-06-23 12:40 | MHC.OFFVIS ---
Vital Signs 06/23/25 12:40 Height 5 ft 9 in BMI Reason not done Patient refused/unable BP 120/71 Blood Pressure Location Lt brachial Position Sitting Pulse 84 Intake Visit Reasons: follow up Intake Note: Elijah presents in the office as a follow up for GERD and a cough. CC: cough for a year - has seen specialists and seen in the ED. cough starts at night and states that lung specialist things he has GERD. states she gave him mylanta and tums and it seems to help his cough a little bit because she was trying to fix the cough and thinks its related to reflux. 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: Yes Allergies No Known Allergies (No Known Allergies*) Allergy (Verified 05/20/25 11:28) Medication List - Last Reconciled 06/23/25 by Zhou Mitchell MD [ADULT PULL UPS (large) As directed] albuterol sulfate 2.5 mg (3 mL) inhalation QID PRN 30 days azithromycin 250 mg PO DAILY [Bed pads As directed] benzonatate 200 mg PO BID PRN blood sugar diagnostic (OneTouch Ultra Test strips) As directed once a day blood-glucose meter (OneTouch Ultra2 Meter) As directed blood-glucose sensor (FreeStyle Jermaine 3 Sensor device) As directed blood-glucose,pharmacy care coordinator,cont (FreeStyle Jermaine 3 [place]) As directed budesonide 0.25 mg (2 mL) inhalation DAILY carbidopa-levodopa 25-100 mg 0.5 tabs PO QID 30 days cetirizine (Zyrtec) 10 mg PO DAILY PRN chair, wheel (Wheel chair) Transport wheelchair As directed. To reduce risk for falls secondary to gait d/o and Alzheimer's dementia. cholecalciferol (vitamin D3) 250 mcg PO 2XW 90 days clonazepam 0.25 mg (1/2 x 0.5 mg) PO BEDTIME PRN 30 days [Commode As directed] [DIABETIC SHOES (1 pair) As directed] [disposable bed pads /10 packs As directed] famotidine 20 mg PO BID 90 days fluticasone propionate 50 mcg/actuation 1 spray intranasal BID [Foam Mattress As directed] guaifenesin 200 mg (5 mL) PO Q4H PRN hydrochlorothiazide 12.5 mg PO DAILY 90 days [incontinent wipes / 10 packs As directed] ipratropium-albuterol 0.5 mg-3 mg(2.5 mg base)/3 mL 3 mL inhalation Q6H PRN lancets (OneTouch UltraSoft Lancets) As directed once a day lancets As directed lancets (OneTouch UltraSoft 2 Lancet) As directed losartan 100 mg PO DAILY 90 days melatonin 9 mg (3 x 3 mg) PO BEDTIME 30 days memantine 28 mg PO DAILY 90 days metformin 1,000 mg PO DAILY [Non slip bath mat As directed] nut.tx.gluc.intol,lac-free,soy (Glucerna oral liquid) 1 can orally TID with meals; 30 days [One Touch Ultra 2 glucose monitor. As directed] [One touch ultra 2 lancets As directed] [One touch ultra 2 strips As directed] [Over the bed tray table As directed] prednisone 10 mg PO DIRECTED [SHOE INSERTS (3 pairs) As directed] [Shower handle As directed] [Transport chair light weight As directed] walker (Ultra-Light Rollator misc) As directed [wedge pillow As directed] [wheelchair back cushion As directed] [wheelchair seat cushion As directed] HPI HPI follow up: Details: GI clinic visit for this 69-year-old male for FU of colon polyps. He has a history of iron deficiency anemia in the past. 02/2020 pt underwent a diagnostic laparoscopy for small-bowel obstruction by Dr. Esquivel was converted to laparotomy with small-bowel resection and primary small bowel anastomosis due to adenoca of distal jejunum/proximal ileum. Pathology:? Moderately differentiated adenocarcinoma, tumor invades adjacent loops of bowel, 1 lymph node positive, margins negative for malignancy.? Tumor size 2.5 x 1.2 cm, 3 lymph nodes examined. Pathological stage pT4N1. PET scan performed 03/21/2020 showed physiological uptake in the lingular tonsil, mass in the upper pole of right kidney only weekly FDG avid, no additional abnormality suspicious for metastatic cancer. Received adjuvant chemotherapy with modified FOLFOX regimen from 04/03/2020 until September 2020 . ? Patient had laparoscopic partial nephrectomy on 12/27/2020.? 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 Margins negative.? Pathological staging pT1a pNx. CHRONIC ILLNESSES:? Diabetes mellitus, hypertension. TODAY'S VISIT Patient is accompanied by his? who interpreted for the patient. Pt has cough for a year - has seen specialists and seen in the ED. cough starts at night and states that lung specialist things he has GERD. states she gave him mylanta and tums and it seems to help his cough a little bit because she was trying to fix the cough and thinks its related to reflux. notes gurgling in the abdomen Patient almost 2 year follow up for H/O malignant neoplasm of small intestine. Pt was diagnosed with dementia. Intermittent heartburn and takes Famotidine prn with relief of symptoms. Takes Miralax as needed (usually every other day) for constipation. Trying to lose weight by making changes in his diet. PAST VISIT: noted he had acid reflux and burping and has been taking Gas X. Does not drink milk. Takes Glucerna 1-[address] a week in place of lunch. Denies constipation - drinking a lot of water Taking Miralax prn if he feels constipated. Having a BM daily. Pt is having some back pain and waiting to see his PCP for appropriate referrals Taking Miralax daily with improvement in constipation. Has a BM every 1-2 days. he stopped taking iron pills as advised by Dr Junior since MIKE has resolved. Complains of constipation and has a BM every other day but its a struggle Notes hard stool sometimes associated with straining Patient denies change in bowel habits, black stools or rectal? bleeding Denies dysphagia, heartburn, nausea or vomiting, change in? appetite or weight. Notes some burping after drinking He was taking iron daily for MIKE and decreased to twice a week by Dr Junior ?IMAGING? STUDIES:?11/27/[address] SCAN SHOWED: No evidence of metastatic or recurrent disease. Stable postsurgical changes to the upper pole of the right kidney and small bowel. Diverticulosis. Fleischner guidelines were followed. 12/[address] SCAN SHOWED:Stable appearance of the chest, abdomen, and pelvis without new findings to suggest metastatic disease. Renal cysts. Low-density regions within the skeleton which are stable and without destructive findings. Postsurgical change small bowel without adjacent adenopathy or soft tissue abnormality.? 12/15/[address] SCAN SHOWED;Stable postsurgical changes to the small bowel. Diverticulosis of the colon. Stool throughout the colon suggestive of constipation. ? Stable 3.4 x 3.5 cm partially solid partially cystic lesion in the upper pole of the right kidney suspicious for neoplasm. Small bilateral renal cysts. Stable fullness of the left adrenal gland. 01/12/19 MRI showed:?IMPRESSION: ? 3.9 x 2.9 cm? complex cystic lesion in the upper pole of the right ? kidney? concerning for neoplasm. Bilateral simple-appearing renal ? cysts.? Diverticulosis of the colon. ?ENDOSCOPIC STUDIES:?04/04/25 COLON SHOWED: Colonoscopy Findings: Two small polyps were removed Moderate to severe diverticulosis seen in the left colon Small hemorrhoids on retroflexed exam. Plan: Repeat Colonoscopy is not recommended given presence of dementia. 08/2021 colonoscopy showed: No polyps were detected No recurrent polyp was seen in the cecum Moderate diverticulosis seen in the entire colon Moderate hemorrhoids on retroflexed exam. Plan:? Repeat Colonoscopy in 3 years due to fair prep in some areas of the colon and a hx of adenomatous colon polyp 11/2018 and 12/2018 Pt was hospitalized at [facility] x 2 wih melena associated with? iron deficiency anemia.Upper endoscopy was performed by Dr. Valiente during his?1st hospitalization and showed a small hiatal hernia and no source of bleeding? was found. ?COLONOSCOPY ON 01/05/2019 SHOWED: ?Colonoscopy? Findings: ?Two polyps removed ?Moderate diverticulosis seen in? the entire colon ?Moderate hemorrhoids on retroflexed? exam. ?Plan: ?Await pathology results ?Patient to? schedule a FU appointment in the GI Clinic with Zhou Mitchell M.D. ?in? 2 weeks ?Repeat Colonoscopy in 1-2 years if cecal polyp is adenomatous? to check ?polypectomy site and due to fair to poor prep in the rectum -? add a fleet enema ?to his prep on arrival in the prep room for future? colonoscopies. ?Above findings were reviewed with the patient and colon? polyps and ?diverticulosis handouts were given in the discharge? area ?Biopsies showed: ?A. Colon, cecum, polypectomy:? Fragments of tubular adenoma; negative for high grade ?dysplasia and? carcinoma. ?B. Colon, transverse, polypectomy: Fragments of tubular? adenoma; negative for high grade dysplasia and? carcino PFSH Medical History Cerebral amyloid angiopathy Obstructive sleep apnea Overweight (BMI 25.0-29.9) Alzheimer's dementia Depression Vitamin D deficiency Memory impairment Renal cell carcinoma of right kidney Essential hypertension Type 2 diabetes mellitus with unspecified complications H/O malignant neoplasm of small intestine Diverticula of colon Kidney mass Anemia Diabetes Hypertension Surgical History Hx of colonoscopy Hx of kidney removal History of esophagogastroduodenoscopy (EGD) H/O sinus surgery Family History Father No problems noted. Mother Heart disease Pancreas cancer Maternal Grandmother Stomach cancer Social History Household Members: Spouse Housing: Apartment Are you a primary family day care provider to a significant other at home: No Do you presently have visiting nurse or other home services: Yes Alcohol intake: former Comment: given as premed Patient Tobacco Use Status: Former Tobacco user Tobacco use type: Cigar e-Cigarette/Vaping Use: Never Used Second Hand Smoke Exposure: No Advance Directives Date on File: 09/12/20 service: No Current occupational status: retired Cognitive needs: No Hearing needs: No Vision needs: Yes (glasses) Review of Systems Const All systems reviewed & are unremarkable except as noted in HPI and below Physical Exam Vital Signs: Last Vital Signs Pulse 84 06/23/25 12:40 BP 120/71 06/23/25 12:40 Const General: no acute distress Nutritional Appearance: average body habitus Orientation/consciousness: patient oriented x3 Limitations: other limitations (dementia) HEENT Head: Yes normal to inspection Ears: hearing grossly normal bilaterally Eyes Sclerae: sclerae normal Pupils: Equal, round and reactive pupils present Neck Neck: Yes normal visual inspection Chest Chest palpation & inspection: normal inspection of the chest Resp Effort & Inspection: normal respiratory effort Auscultation: clear to auscultation bilaterally Cardio Palpation: normal PMI Rate: regular rate Rhythm: regular rhythm Heart sounds: S1 normal heart sound present, S2 normal heart sound present and no murmurs GI Palpation (GI): Soft to palpation, nontender and No hepatosplenomegaly present Auscultation: normal bowel sounds Rectal Exam - Male: Yes deferred Skin General skin exam: no rashes or lesions noted Neuro General: patient oriented x3, gait normal and moves all extremities Cranial nerves: Yes Equal, round and reactive pupils present Psych Appearance: grossly normal Mental Status: mental status grossly normal Assessment & Plan Assessment & Plan (1) History of colon polyps: Code(s): Z86.010 - Personal history of colon polyps Category: Medical (2) Dysphagia: Code(s): R13.10 - Dysphagia, unspecified Category: Medical (3) Gastritis: Code(s): K29.70 - Gastritis, unspecified, without bleeding Category: Medical Qualifiers: Chronicity: unspecified Gastritis bleeding: without bleeding Gastritis type: unspecified gastritis Qualified Code(s): K29.70 - Gastritis, unspecified, without bleeding (4) GERD (gastroesophageal reflux disease): Code(s): K21.9 - Gastro-esophageal reflux disease without esophagitis Category: Medical Plan 70 YM with DM and Htn followed in GI for anemia and a hx of colon polyps. 02/2020 pt underwent a diagnostic laparoscopy for small-bowel obstruction by Dr. Morgan It was converted to laparotomy with small-bowel resection and primary small bowel anastomosis due to adenoca of distal jejunum/proximal ileum. Pathology:? Moderately differentiated adenocarcinoma, tumor invades adjacent loops of bowel, 1 lymph node positive, margins negative for malignancy.? Tumor size 2.5 x 1.2 cm, 3 lymph nodes examined. Pathological stage pT4N1.? PET scan performed 03/21/2020 showed physiological uptake in the lingular tonsil, mass in the upper pole of right kidney only weekly FDG avid, no additional abnormality suspicious for metastatic cancer. Received adjuvant chemotherapy with modified FOLFOX regimen from 04/03/2020 until September 2020 . ? Patient had laparoscopic partial nephrectomy on 12/27/2020.? 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 Margins negative.? Pathological staging pT1a pNx. Pt is being followed by Dr Junior. 12/[address] SCAN SHOWED:??Stable appearance of the chest, abdomen, and pelvis without new findings to suggest metastatic disease. Patient denies known family history of colon? polyps or cancer though his knowledge regarding his family history is somewhat? limited. Aug 2021 colonoscopy showed diverticulosis and hemorrhoids and no polyps were detected. Repeat colonoscopy is advised in 3 yrs due to fair prep. Pt noted heartburn and bloating and prescribed Famotidine 20 mg twice daily prn with adequate control of symptoms Pt continues to see Dr Junior for FU of small intestinal ca and Surveillance CT chest/abdomen and pelvis with contrast in July 2024 was negative for disease recurrence He has now been diagnosed with dementia, he is under the care of neurologist. 03/2025 colonoscopy was performed and two small polyps (one polyp was a tubular adenoma and 2nd polyp was not retrieved) were removed Follow-up colonoscopy is not recommended due to dementia. 06/23/25 patient was prescribed omeprazole 10 mg at bedtime for nocturnal cough - suspected to be related to GERD. FU TV in 4 weeks Medications: New omeprazole 10 mg PO BEDTIME 60 caps 2RF 60 days K21.9 - Gastro-esophageal reflux disease without esophagitis Coding Level of Care Code Est Pt Level 4 (71083) Diagnoses History of colon polyps Z86.010 Dysphagia R13.10 Gastritis without bleeding, unspecified chronicity, unspecified gastritis type K29.70 Chronicity: unspecified Gastritis bleeding: without bleeding Gastritis type: unspecified gastritis GERD (gastroesophageal reflux disease) K21.9 Time Spent (min) 20
--- OUTSIDE RECORDS SUMMARY | 2025-06-23 16:10 | XMS_ITS | Clinical Summary ---
Author Organization [facility] Address [address] [place] [address] Care Team Providers Care Roll Wrapper Name Role Phone Chung Yuri Primary Care Provider [phone] Allergies Active Allergy Reactions Criticality Noted Date [...] Hepatitis C Screening 1955 Colonoscopy 06/21/2014 06/21/2009 Alcohol/Substance Use Screening 07/07/2024 Depression Screening and Follow-Up 07/07/2024 Fall Risk Screening 07/07/2024 Health Care Proxy Review 07/07/2024 Social Drivers of Health Annual Screening 07/07/2024 Influenza Vaccine (#1) 2025 , 03/24/2023, 04/25/2022, Additional history exists COVID-19 Vaccine (2024- season) 2025 07/04/2021, 11/06/2020, 10/07/2020 RSV Vaccine (60+ years old and patients) [...] complete this topic Procedures * Due to [place] [email or web address] law, this organization might not be sharing negative HIV tests. Procedure Name Priority Date/Time Associated Diagnosis Comments AMB EXTERNAL CT CHEST, OUTSIDE RESULT 07/21/2024 COLONOSCOPY 06/21/2009 1:45 PM EST from Last 3 Months or Most Recently Relevant to Health Maintenance Results * Due to [place] [email or web address] law, this organization might not be sharing negative HIV tests. 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
--- OUTSIDE RECORDS SUMMARY | 2025-06-23 16:10 | XMS_ITS | Patient Health Record ---
Author Organization [facility] Address [address] [place] [address] Care Team Providers Care Vine Pruner Name Role Phone Chung GONZALES [place] Primary Care Provider Rodolfo Tran Unavailable [phone] Allergies No Known Allergies Results Component Value [...] clonazePAM Not-Takin g Vitamin D3 250 MCG (58803 UT) as directed Orally Active Extra Depth [...] Problem Acquired hammer toe of right foot ([id number] 105) Other hammer toe(s) (acquired), right foot (M20.41) Active confirmed Response to treatment,I mprovement Problem Acquired hammer toe of left foot (6498001391259 103) Other hammer toe(s) (acquired), left foot (M20.42) Active confirmed Response to treatment,I mprovement Problem Type 2 diabetes mellitus with peripheral angiopathy ([id number]) Type 2 diabetes mellitus with diabetic peripheral angiopathy without gangrene (E11.51) Active confirmed Q7(A), Q8(2B), Q9(1B,2C) Vital Signs Blood pressure diastolic 86 mm Hg 09/29/2024 Height 5ft 11in in 12/27/2024 Blood pressure systolic 132 mm Hg 09/29/2024 Weight 178 lbs 12/27/2024 BMI 24.82 kg/m2 12/27/2024 Procedures Procedure Date Ordered Date Performed Result Body Sit e 90143-OEVBEMA NAIL, 1-5 06/24/2024 N/A 98631-GJLF SKIN LESIONS, 2 TO 4 06/24/2024 N/A L8089-YPRJDJWL DYSTROPHIC NAILS ANY # 06/24/2024 N/A 29959-EHFGXHQ NAIL, 1-5 09/29/2024 N/A 45870-ENYU SKIN LESIONS, 2 TO 4 09/29/2024 N/A X5917-JVYFSYMG DYSTROPHIC NAILS ANY # 09/29/2024 N/A 83045-MVWJJPK NAIL, 1-5 12/27/2024 N/A 87814-HQUE SKIN LESIONS, 2 TO 4 12/27/2024 N/A K9584-XGHYNVWA DYSTROPHIC NAILS ANY # 12/27/2024 N/A Encounters Encounter Location Date Provider Diagnosis [address] [address] 06/24/2024 Rodolfo Kaplan Type 2 diabetes mellitus with diabetic peripheral angiopathy without gangrene E11.51 ; Tinea unguium B35.1 ; Pain in right toe(s) M79.674 ; Pain in left toe(s) M79.675 ; Other hammer toe(s) (acquired), right foot M20.41 and Other hammer toe(s) (acquired), left foot M20.[address] [address] 09/29/2024 Rodolfo Kaplan Type 2 diabetes mellitus with diabetic peripheral angiopathy without gangrene E11.51 ; Tinea unguium B35.1 ; Pain in right toe(s) M79.674 and Pain in left toe(s) M79.[address] [address] 12/27/2024 Rodolfo Kaplan Type 2 diabetes mellitus with diabetic peripheral angiopathy without gangrene E11.51 ; Tinea unguium B35.1 ; Pain in right toe(s) M79.674 and Pain in left toe(s) M79.[address] [address] 12/23/2024 Rodolfo Kaplan [address] [place] [address] 03/22/2025 Rodolfo Kaplan Assessments Encounter Date Diagnosis (ICD [...] Treatment Pending Test Test Name Order Date 78270-HBHZYVY NAIL, 1-01/07/2024 24681-QXKBBVC NAIL, 1-03/18/2024 51870-AYPKGGZ NAIL, -06/24/2024 13989-CUTZOEJ NAIL, 1-5 09/29/2024 72470-FOCXYMP NAIL, 1-5 12/27/2024 51839-NGAR SKIN LESIONS, 2 TO 4 12/28/19 85914-RUBW SKIN LESIONS, 2 TO 4 09/30/19 25 09165-NBLL SKIN LESIONS, 2 TO 4 06/24/20 24 20663-WFAL SKIN LESIONS, 2 TO 4 01/07/20 11766-ECIM SKIN LESIONS, 2 TO 4 03/18/20 24 A9867-BHRQWBUB DYSTROPHIC NAILS ANY # Q3877-ONMGCKRX DYSTROPHIC NAILS ANY # A7430-PYJLKMTI DYSTROPHIC NAILS ANY # A4357-HSYKFPUI DYSTROPHIC NAILS ANY # J3096-OCLDCYVC DYSTROPHIC NAILS ANY # Insurance Providers Payer Name Payer Address Payer Phone Subscriber Number Group Number Insured Name Patient Relationship to Insured Coverage Start Date Coverage End Date [facility] [employer] Claims [address] [place] [address] [id number] Elijah Bearden Self - patient is the [...]
== END 2025-06-23 13:34 | disposition home or self-care (01) ==
LOC: HO.HGI 12:17
PROVIDERS: PCP Internal Medicine; Visit Provider Internal Medicine Gastroenterology
DX: Z86.0100 Personal history of colon polyps, unspecified (principal); R13.10 Dysphagia, unspecified; K29.70 Gastritis, unspecified, without bleeding; K21.9 Gastro-esophageal reflux disease without esophagitis
CPT/HCPCS: 99214

== ENCOUNTER → 2025-06-23 12:16 | Outpatient (BNVA) | payer OTHER, SELFPAY | PROVIDERS: PCP Internal Medicine; Visit Provider Internal Medicine Gastroenterology | DX: K21.9 Gastro-esophageal reflux disease without esophagitis (principal); R13.10 Dysphagia, unspecified; K29.70 Gastritis, unspecified, without bleeding; Z86.0100 Personal history of colon polyps, unspecified | CPT/HCPCS: 99212 ==